=== PATIENT | male | born 1945 | race Caucasian/White ===

== ENCOUNTER → 2016-08-11 | Outpatient (REF) | payer MEDICARE, MEDICAID ==
[~2016-08-11] MED LIST: BENZ100C5 PO; DIPH2.5L PO; DOCU100T8 PO; IBUPPOW25 PO; LOM; LORA-376 PO; STOO100C PO; TUMS500C PO; VICO5TAB OR; chemo; ibuprofen
== END ==
LOC: M LAB REF 13:13
PROVIDERS: ATTEND Internal Medicine Medical Oncology
DX: C34.90 Malignant neoplasm of unspecified part of unspecified bronchus or lung (principal); Z85.07 Personal history of malignant neoplasm of pancreas

== ENCOUNTER → 2016-08-19 | Outpatient (CLI) | payer MEDICARE, MEDICAID ==
[~2016-08-19] MED LIST changes: +GASTROGRAFIN SOLUTION 30ML (Q9963) As Ordered ONE; +ISOVUE-370 76% 100ML VIAL (Q9967) As Ordered ONE
--- NOTE | 2016-08-19 18:21 | REP ---
CT study of the chest with IV contrast: History: Staging, metastatic pancreatic carcinoma. Comparison chest CT study 03/16/2016 showed scattered cavitary bilateral lung lesions unchanged from the earlier study. CT contrast dose: 100 mL of Isovue [address] findings: There is no evidence of pleural or pericardial effusion. There are 5 or 6 mediastinal lymph nodes in the precarinal and pretracheal space. One of these is enlarged and several are larger than they were in 03/16/2016 prior status scan. The largest node visible today measures 1.2 cm in short axis x 2.1 cm x 1.5 cm. This change is somewhat suspicious. There is a subcarinal node which has enlarged since the prior study as well. This currently measures 1.0 x 2.3 x 1.1 cm. Multiple scattered cavitary pulmonary parenchymal mass lesions are again seen. There is a 1.1 cm nodule adjacent to a larger lesion in the left lower lobe which is increased in size when compared with the March 2016 prior study. The right lower lobe lesion appears larger today as well and currently measures 2.5 x 1.5 cm. No new lesion is appreciated. The left upper lobe superior perihilar lesion is similar overall size but contains more soft tissue in its wall and less air. The aorta is tortuous as before. No vascular lesion is seen. Pneumobilia is noted incidentally in the upper abdomen in this patient status post Whipple procedure. No upper abdominal adenopathy is seen. Impression: Changes suspicious for progression in two of the lung lesions as well as in several mediastinal lymph nodes. Signed by Calin Wood MD 08/19/2016 07:55 P
--- NOTE | 2016-08-19 18:23 | REP ---
CT abdomen and pelvis without and with IV contrast: With oral contrast: History: Metastatic pancreatic carcinoma, restaging. Comparison CT study 11/03/2015. CT contrast dose: 100 mL of Isovue 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 The patient is status post Whipple procedure. Pneumobilia is again seen unchanged. No focal liver mass lesion is observed. Multiple upper abdominal surgical clips are seen. Small and large bowel loops are unremarkable apart from the postoperative changes. There are dystrophic calcifications in the enlarged prostate. Urinary bladder is intact. The kidneys enhance symmetrically. There are a few scattered small subcentimeter cortical cysts in each kidney. No hydronephrosis is seen. No retroperitoneal mass or adenopathy is seen. No bony destructive lesion is observed. Impression: Stable postoperative changes in the upper abdomen. No CT evidence of progression in the abdomen or pelvis. Signed by Calin Wood MD 08/19/2016 07:55 P
== END ==
LOC: M RAD 15:32
PROVIDERS: ATTEND Internal Medicine Medical Oncology
DX: C25.9 Malignant neoplasm of pancreas, unspecified (principal); R91.1 Solitary pulmonary nodule
CPT/HCPCS: 71260; 74178; Q9963; Q9967

== ENCOUNTER → 2016-09-29 | Outpatient (CLI) | payer MEDICARE, MEDICAID ==
[~2016-09-29] MED LIST changes: -GASTROGRAFIN SOLUTION 30ML (Q9963) As Ordered ONE; -ISOVUE-370 76% 100ML VIAL (Q9967) As Ordered ONE
--- NOTE | 2016-09-29 15:19 | REP ---
chest, two views: HISTORY: Pneumonia. COMPARISON: 11/04/2015. An ill-defined parenchymal density 1.7 cm in width is present in the left lower lobe. The right lung is clear. The heart is normal in size. The pulmonary vasculature is normal in appearance. Degenerative change is present in the thoracic spine. An Infusaport catheter is present. IMPRESSION: There is a 1.7 cm ill-defined parenchymal nodule in the left lower lobe. CT of the chest is recommended for further evaluation. Signed by Bridger Stokes MD 09/29/2016 03:23 P
== END ==
LOC: M RAD 14:28
PROVIDERS: ATTEND Internal Medicine Medical Oncology
DX: C25.9 Malignant neoplasm of pancreas, unspecified (principal); R91.1 Solitary pulmonary nodule; R06.2 Wheezing

== ENCOUNTER → 2016-10-13 | Outpatient (REF) | payer MEDICARE, MEDICAID | LOC: M LAB REF 16:57 | PROVIDERS: ATTEND Internal Medicine Medical Oncology | DX: C25.9 Malignant neoplasm of pancreas, unspecified (principal) ==

== ENCOUNTER → 2016-10-27 | Outpatient (REF) | payer MEDICARE, MEDICAID | LOC: M LAB REF 16:56 | PROVIDERS: ATTEND Internal Medicine Medical Oncology | DX: C25.9 Malignant neoplasm of pancreas, unspecified (principal) ==

== ENCOUNTER → 2016-11-17 | Outpatient (REF) | payer MEDICARE, MEDICAID ==
[~2016-11-17] MED LIST changes: -LORA-376 PO; +LORA0.5T11 PO
== END ==
LOC: M LAB REF 16:46
PROVIDERS: ATTEND Internal Medicine Medical Oncology
DX: C25.9 Malignant neoplasm of pancreas, unspecified (principal)

== ENCOUNTER → 2016-12-28 | Outpatient (REF) | payer MEDICARE, MEDICAID ==
[2016-12-28 15:27] LABS: REASON FOR REVIEW COMPREHENSIVE REVIEW
[2016-12-31 00:07] LABS: (LD) FRACTION 1 27 % (17-32); (LD) FRACTION 2 35 % (25-40); (LD) FRACTION 3 21 % (17-27); (LD) FRACTION 4 8 % (5-13); (LD) FRACTION 5 9 % (4-20); LDH 214 IU/L (121-224)
== END ==
LOC: M LAB REF 13:06
PROVIDERS: ATTEND Internal Medicine Nephrology
DX: N18.3 Chronic kidney disease, stage 3 (moderate) (principal); C25.9 Malignant neoplasm of pancreas, unspecified; D64.9 Anemia, unspecified; Z79.899 Other long term (current) drug therapy

== ENCOUNTER 2016-12-29 15:19 | Outpatient (CLI) | payer MEDICARE, MEDICAID ==
[2016-12-29] VITALS (9 sets, daily range): BP systolic 123–168; BP diastolic 68–79
[2016-12-29] MEDS ORDERED: ACETAMINOPHEN TAB 650MG DOSE (2X325MG) PO ONE (16:00)
[2016-12-29] MEDS ORDERED: diphenhydrAMINE 25 MG CAP PO ONE (16:00)
[2016-12-30 00:19] VITALS: BP 147/77
[2016-12-30 01:19] VITALS: BP 131/75
[2016-12-30] MEDS ORDERED: SODIUM CHLORIDE 0.9% INJ 10 ML SYR IV PRN (01:30)
[2016-12-30] MEDS ORDERED: SODIUM CHLORIDE 0.9% INJ 10 ML SYR IV SCH (09:00)
== END 2016-12-30 01:43 | disposition home or self-care (01) ==
LOC: M OPCLI4PV 15:19 → M MSPAV 15:23 → M OPCLI4PV 12-30 01:43
PROVIDERS: ATTEND Nurse Practitioner Family
DX: D64.81 Anemia due to antineoplastic chemotherapy (principal); C25.9 Malignant neoplasm of pancreas, unspecified
CPT/HCPCS: 36430; 86301; 86850; 86900; 86901; 86920; P9016

== ENCOUNTER → 2016-12-29 | Outpatient (REF) | payer MEDICARE, MEDICAID | LOC: M LAB REF 13:20 | PROVIDERS: ATTEND Internal Medicine Medical Oncology | DX: C25.9 Malignant neoplasm of pancreas, unspecified (principal) ==

== ENCOUNTER → 2017-01-05 | Outpatient (REF) | payer MEDICARE, MEDICAID | LOC: M LAB REF 16:30 | PROVIDERS: ATTEND Internal Medicine Medical Oncology | DX: C25.9 Malignant neoplasm of pancreas, unspecified (principal) ==

== ENCOUNTER → 2017-01-05 | Outpatient (CLI) | payer MEDICARE, MEDICAID ==
--- NOTE | 2017-01-05 12:04 | REP ---
Clinical: Chronic medical renal disease. Technique: Real time macedo scale ultrasound examination using curved array transducer. Findings: The right kidney measures 9.4 x 5.3 x 5.6 cm and is normal in reniform shape with increased central sinus fat and few cysts may entering up to 9 mm in the mid pole. Findings are consistent with chronic medical renal disease and there is no evidence for hydronephrosis, nephrolithiasis or mass lesion. The left kidney measures 10.5 x 4.3 x 5.7 cm and is normal in reniform shape with increased central sinus fat and few cysts measuring up to 10 mm in the lower pole. Findings are consistent with chronic medical renal disease and there is no evidence for hydronephrosis, nephrolithiasis, or mass lesion. Bladder demonstrates subtle nodular contour to the wall which may be related to chronic changes and possible outlet obstruction. Bilateral ureteral jets are identified. Prevoid bladder measures 184 ml at Postvoid bladder measures 129 ml. Postvoid residual equals 70% Impression: 1. Evidence for chronic medical renal disease and few bilateral cysts without hydronephrosis. 2. Bladder wall irregularity and increased postvoid residual volume suggest chronic changes related to bladder outlet obstruction. Signed by David Green MD 01/05/2017 11:56 A
== END ==
LOC: M RAD 11:06
PROVIDERS: ATTEND Internal Medicine Nephrology
DX: N18.3 Chronic kidney disease, stage 3 (moderate) (principal); C25.9 Malignant neoplasm of pancreas, unspecified

== ENCOUNTER → 2017-03-31 | Outpatient (REF) | payer MEDICARE, MEDICAID | LOC: M LAB REF 18:01 | PROVIDERS: ATTEND Internal Medicine Medical Oncology | DX: C25.9 Malignant neoplasm of pancreas, unspecified (principal) ==

== ENCOUNTER → 2017-04-14 | Outpatient (REF) | payer MEDICARE, MEDICAID | LOC: M LAB REF 16:50 | PROVIDERS: ATTEND Internal Medicine Medical Oncology | DX: C25.9 Malignant neoplasm of pancreas, unspecified (principal) ==

== ENCOUNTER → 2017-08-22 | Outpatient (REF) | payer MEDICARE, MEDICAID ==
[2017-08-23 09:26] LABS: CA19-9 TUMOR MARKER,CARBOHYDRA 77.9 U/ML (<35.0)
== END ==
LOC: M LAB REF 13:11
DX: C78.01 Secondary malignant neoplasm of right lung (principal); C78.02 Secondary malignant neoplasm of left lung; C25.9 Malignant neoplasm of pancreas, unspecified
CPT/HCPCS: 86301

== ENCOUNTER → 2017-08-26 | Outpatient (CLI) | payer MEDICARE, MEDICAID ==
[~2017-08-26] MED LIST changes: -BENZ100C5 PO; -DIPH2.5L PO; -DOCU100T8 PO; +GASTROGRAFIN SOLUTION 30ML (Q9963) As Ordered; -IBUPPOW25 PO; +ISOVUE-370 76% 100ML VIAL (Q9967) As Ordered; -LOM; -LORA0.5T11 PO; -STOO100C PO; -TUMS500C PO; -VICO5TAB OR; -chemo; -ibuprofen
== END ==
LOC: M RAD 14:52
DX: C25.9 Malignant neoplasm of pancreas, unspecified (principal)
CPT/HCPCS: Q9963

== ENCOUNTER → 2017-09-06 | Outpatient (REF) | payer MEDICARE, MEDICAID | LOC: M LAB REF 11:00 | DX: C34.90 Malignant neoplasm of unspecified part of unspecified bronchus or lung (principal) | CPT/HCPCS: 88300 ==

== ENCOUNTER → 2017-10-21 | Outpatient (CLI) | payer MEDICARE, MEDICAID | LOC: M RAD 09:43 | DX: N18.9 Chronic kidney disease, unspecified (principal); R33.9 Retention of urine, unspecified | CPT/HCPCS: 78707 ==

== ENCOUNTER → 2017-10-24 | Outpatient (REF) | payer MEDICARE, MEDICAID ==
[2017-10-25 09:47] LABS: CA19-9 TUMOR MARKER,CARBOHYDRA 168.5 U/ML (<35.0)
== END ==
LOC: M LAB REF 16:44
DX: C25.9 Malignant neoplasm of pancreas, unspecified (principal); C78.01 Secondary malignant neoplasm of right lung; C78.02 Secondary malignant neoplasm of left lung
CPT/HCPCS: 86301

== ENCOUNTER → 2017-11-11 | Outpatient (REF) | payer MEDICARE, MEDICAID ==
[2017-11-11 14:40] LABS: INR 1.04; PROTHROMBIN TIME 13.7 SECONDS (12.1-14.4)
== END ==
LOC: M LAB REF 12:57
DX: Z01.818 Encounter for other preprocedural examination (principal); Z79.01 Long term (current) use of anticoagulants
CPT/HCPCS: 85610

== ENCOUNTER → 2017-11-28 | Outpatient (CLI) | payer MEDICARE, MEDICAID | LOC: M RAD 13:24 | DX: C34.90 Malignant neoplasm of unspecified part of unspecified bronchus or lung (principal) | CPT/HCPCS: 71250 ==

== ENCOUNTER → 2017-12-05 | Outpatient (REF) | payer MEDICARE, MEDICAID | LOC: M LAB REF 17:20 | DX: C25.9 Malignant neoplasm of pancreas, unspecified (principal); C78.01 Secondary malignant neoplasm of right lung; C78.02 Secondary malignant neoplasm of left lung | CPT/HCPCS: 86301 ==

== ENCOUNTER → 2018-04-06 | Outpatient (REF) | payer MEDICARE, MEDICAID ==
[2018-04-06 11:32] LABS: CREATININE, SERUM 2.4 MG/DL (0.6-1.3); TOTAL VOLUME, URINE 1250 ML
[2018-04-06 11:51] LABS: CREATININE CLEARANCE, URINE 36.9 ML/MIN (85-125)
[2018-04-06 11:52] LABS: TOTAL PROTEIN 24 HOUR URINE 262.5 MG/24HR (50-150)
== END ==
LOC: M LAB REF 11:00
DX: C25.9 Malignant neoplasm of pancreas, unspecified (principal); C78.2 Secondary malignant neoplasm of pleura; C78.1 Secondary malignant neoplasm of mediastinum
CPT/HCPCS: 82575

== ENCOUNTER → 2018-04-07 | Outpatient (CLI) | payer MEDICARE, MEDICAID | LOC: M RAD 08:29 | DX: C25.9 Malignant neoplasm of pancreas, unspecified (principal); C78.01 Secondary malignant neoplasm of right lung; C78.02 Secondary malignant neoplasm of left lung | CPT/HCPCS: 71250 ==

== ENCOUNTER 2018-04-11 10:51 | Emergency (ER) | payer MEDICARE, MEDICAID ==
[2018-04-11 12:09] LABS: BASO # 0.1 10^3/uL (0.0-0.2); BASO % 0.4 % (0.0-1.0); EOS # 0.1 10^3/uL (0.0-0.50); EOS % 1.2 % (0.0-3.0); HEMOGLOBIN 14.7 g/dl (13.5-17.5); IMMATURE GRANULOCYTE % 0.4 % (0-3.0); LYMPH # 0.6 10^3/uL (1.5-4.5); LYMPH % 5.3 % (24.0-44.0); MEAN CORPUSCULAR HEMOGLOBIN 29.5 pg (27.0-33.0); MEAN CORPUSCULAR HGB CONC 32.7 g/dl (32.0-36.5); MEAN CORPUSCULAR VOLUME 90.4 fl (80.0-96.0); MONO # 0.7 10^3/uL (0.0-0.8); MONO % 5.6 % (0.0-5.0); NEUTROPHILS # 10.1 10^3/uL (1.8-7.7); NEUTROPHILS % 87.1 % (36.0-66.0); PLATELET COUNT, AUTOMATED 181 10^3/uL (150-450); RED BLOOD COUNT 4.98 10^6/uL (4.30-6.10); RED CELL DISTRIBUTION WIDTH 12.9 % (11.5-14.5); WHITE BLOOD COUNT 11.6 10^3/uL (4.0-10.0)
[2018-04-11 12:33] LABS: ALBUMIN 3.9 GM/DL (3.2-5.2); ALBUMIN/GLOBULIN RATIO 0.95 (1.00-1.93); ALKALINE PHOSPHATASE 139 U/L (45-117); ALT/SGPT 23 U/L (12-78); ANION GAP 7 MEQ/L (8-16); AST/SGOT 20 U/L (7-37); BILIRUBIN,DIRECT 0.1 MG/DL (0.0-0.2); BILIRUBIN,TOTAL 0.6 MG/DL (0.2-1.0); BLOOD UREA NITROGEN 42 MG/DL (7-18); CALCIUM LEVEL 8.8 MG/DL (8.8-10.2); CARBON DIOXIDE LEVEL 23 MEQ/L (21-32); CHLORIDE LEVEL 109 MEQ/L (98-107); CPK CREATINE PHOSPHOKINASE 50 U/L (39-308); CREATININE FOR GFR 2.83 MG/DL (0.70-1.30); GLOMERULAR FILTRATION RATE 23.3 (>42); GLUCOSE, FASTING 104 MG/DL (70-100); LIPASE 32 U/L (73-393); POTASSIUM SERUM 4.7 MEQ/L (3.5-5.1); SODIUM LEVEL 139 MEQ/L (136-145); TROPONIN I < 0.02 NG/ML (< 0.10)
[2018-04-11] MEDS: GASTROGRAFIN SOLUTION 30ML PO ×3 (12:35→13:10)
[2018-04-11 12:37] LABS: INR 0.99; PROTHROMBIN TIME 13.2 SECONDS (12.1-14.4)
[2018-04-11] MEDS: ONDANSETRON 4MG/2ML VIAL (J2405) IV (13:09)
[2018-04-11] MEDS: MORPHINE 4 MG/ML 1ML VIAL/SYRINGE (J2270) IV ×2 (13:09→14:48)
[2018-04-11] MEDS: NS 1,000 ML IV (13:10)
[2018-04-11 13:29] LABS: KETONE, URINE AUTO RFX NEGATIVE (NEGATIVE); LEUKOCYTE ESTERASE UR AUTO RFX NEGATIVE (NEGATIVE); MUCUS, URINE RFX SMALL (NEGATIVE); NITRITE, URINE AUTO RFX NEGATIVE (NEGATIVE); RBC, URINE AUTO RFX 4 /HPF (0-3); SPECIFIC GRAVITY UR AUTO RFX 1.013 (1.002-1.035); SQUAM EPITHELIAL CELL UR AURFX 0 /HPF (0-6); WBC, URINE AUTO RFX 2 /HPF (0-3)
== END 2018-04-11 16:00 | disposition home or self-care (01) ==
LOC: M ED 10:51
DX: R10.9 Unspecified abdominal pain (principal); K56.7 Ileus, unspecified
CPT/HCPCS: J2270

== ENCOUNTER → 2018-08-16 | Outpatient (CLI) | payer MEDICARE ==
[~2018-08-16] MED LIST changes: +BENZ-18 PO; +CALC1CAP31 PO; +DIPH2.5L PO; +DOCU100T8 PO; +FLOM0.4C39 PO; -GASTROGRAFIN SOLUTION 30ML (Q9963) As Ordered; +HYDR-3715 PO; +IBUPPOW25 PO; -ISOVUE-370 76% 100ML VIAL (Q9967) As Ordered; +LEVA250T13 PO; +LOM; +LORA0.5T11 PO; +STOO100C PO; +TAMSULOSIN; +TUMS500C PO; +VICO5TAB OR; +ZOFR4TAB14 PO; +[UNRECOGNIZED DRUG - CODE] IV; +chemo; +ibuprofen
--- NOTE | 2018-08-16 17:10 | REP ---
PET/CT: History: Carcinoma of the pancreatic head. The patient is status post Whipple procedure. Lung metastasis. Staging exam. Comparisons: Comparison CT abdomen and pelvis April 11, 2018. Comparison chest CT April 07, 2018. No comparison PET-CT. TECHNIQUE: 54 minutes following the intravenous injection of a 9.02 mCi dose of F-18 FDG, three-dimensional PET scintigraphy is acquired from the skull base to the proximal thighs. Triplanar noncontrast CT scanning is acquired through the same anatomic range for attenuation correction, and image registration with scan parameters optimized to minimize radiation exposure to the patient. PET scintigraphy and CT datasets were fused and displayed on a workstation with multiplanar and projection display capability. PET/CT Findings: There is injection artifactual uptake in the right arm. There is some arthritis associated uptake in the left shoulder. Head and neck soft tissues are unremarkable. There is no abnormal hypermetabolic uptake within the liver. The patient is status post Whipple procedure. There is no upper abdominal hypermetabolic sadi uptake. The known cavitary nodule or lung masses are all mildly hypermetabolic. These range in avidity from 1.96 to an SUV of 5.37. Lesions are noted in the left upper lobe, right lower lobe, two in the left lower lobe, and two in the right upper lobe. Several of these appear a little larger than on the comparison chest CT April 07, 2018. No hilar or mediastinal hypermetabolic sadi uptake is seen. Exam is otherwise unremarkable. Impression: Mildly hypermetabolic uptake noted in the multiple cavitary pulmonary nodular lesions. Several of these appear somewhat larger or thicker compared to their appearance on April 07, 2018. Electronically Signed by Calin Wood MD 08/16/2018 08:30 P
== END ==
LOC: M PLARAD 11:35
PROVIDERS: ATTEND Internal Medicine Hematology & Oncology
DX: C25.9 Malignant neoplasm of pancreas, unspecified (principal); C78.01 Secondary malignant neoplasm of right lung; C78.02 Secondary malignant neoplasm of left lung
CPT/HCPCS: 78815; A9552

== ENCOUNTER → 2018-09-06 | Outpatient (REF) | payer MEDICARE ==
[2018-09-06 17:03] LABS: TOTAL PROTEIN,RANDOM URINE 60.7 MG/DL (0.0-12.0)
[2018-09-06 17:10] LABS: ALBUMIN 3.4 GM/DL (3.2-5.2); CALCIUM LEVEL 7.6 MG/DL (8.8-10.2); CREATININE FOR GFR 2.67 MG/DL (0.70-1.30); POTASSIUM SERUM 3.8 MEQ/L (3.5-5.1)
[2018-09-06 17:23] LABS: HEMATOCRIT 34.4 % (42.0-52.0); MEAN CORPUSCULAR HEMOGLOBIN 30.7 pg (27.0-33.0); MEAN CORPUSCULAR VOLUME 96.1 fl (80.0-96.0); PLATELET COUNT, AUTOMATED 150 10^3/uL (150-450); RED BLOOD COUNT 3.58 10^6/uL (4.30-6.10); WHITE BLOOD COUNT 7.3 10^3/uL (4.0-10.0)
== END ==
LOC: M LAB REF 15:32
PROVIDERS: ATTEND Internal Medicine Nephrology
DX: N18.3 Chronic kidney disease, stage 3 (moderate) (principal)

== ENCOUNTER → 2018-09-26 | Outpatient (REF) | payer MEDICARE ==
[2018-09-26 18:51] LABS: APPEARANCE, URINE CLEAR (CLEAR); BACTERIA, URINE AUTO NEGATIVE (NEGATIVE); BILIRUBIN, URINE AUTO NEGATIVE (NEGATIVE); BLOOD, URINE BLOOD 1+ (NEGATIVE); COLOR, URINE YELLOW (YELLOW); GLUCOSE, URINE (UA) AUTO NEGATIVE (NEGATIVE); KETONE, URINE AUTO NEGATIVE (NEGATIVE); LEUKOCYTE ESTERASE, URINE AUTO TRACE (NEGATIVE); MUCUS, URINE SMALL (NEGATIVE); NITRITE, URINE AUTO NEGATIVE (NEGATIVE); PROTEIN, URINE AUTO NEGATIVE (NEGATIVE); RBC, URINE AUTO 3 /HPF (0-3); SPECIFIC GRAVITY URINE AUTO 1.014 (1.002-1.035); SQUAMOUS EPITHELIAL CELL UR AU 0 /HPF (0-6); UROBILINOGEN, URINE AUTO 0.2 mg/dL (0.0-2.0); WBC, URINE AUTO 6 /HPF (0-3)
== END ==
LOC: M SMT 17:17
PROVIDERS: ATTEND Nurse Practitioner Family
DX: R31.9 Hematuria, unspecified (principal)
CPT/HCPCS: 81001; 87086; 88108; G0463

== ENCOUNTER 2018-11-24 18:19 | Inpatient (IN) | payer MEDICARE ==
[~2018-11-24] VITALS: Ht 177.8 cm; Wt 86.3 kg
[~2018-11-24 18:19] MED LIST changes: +MM S100C PO; -STOO100C PO
[2018-11-24] MEDS ORDERED: HYDROMORPHONE HCL 0.5 MG/ 0.5 ML SYRINGE (J1170 PER 1) IV ONE (20:15)
[2018-11-24] MEDS ORDERED: ONDANSETRON 4MG/2ML VIAL (J2405) IV ONE (20:15)
[2018-11-24] MEDS ORDERED: NS 1,000 ML IV ONE (20:15)
[2018-11-24 20:54] LABS: BASO % 0.3 % (0.0-1.0); EOS % 0.3 % (0.0-3.0); HEMATOCRIT 43.2 % (42.0-52.0); HEMOGLOBIN 14.1 g/dl (13.5-17.5); LYMPH # 0.3 10^3/uL (1.5-4.5); LYMPH % 1.9 % (24.0-44.0); MEAN CORPUSCULAR HEMOGLOBIN 30.9 pg (27.0-33.0); MEAN CORPUSCULAR HGB CONC 32.6 g/dl (32.0-36.5); MEAN CORPUSCULAR VOLUME 94.7 fl (80.0-96.0); MONO # 0.7 10^3/uL (0.0-0.8); MONO % 4.6 % (0.0-5.0); NEUTROPHILS # 14.5 10^3/uL (1.8-7.7); NEUTROPHILS % 92.6 % (36.0-66.0); PLATELET COUNT, AUTOMATED 153 10^3/uL (150-450); RED BLOOD COUNT 4.56 10^6/uL (4.30-6.10); WHITE BLOOD COUNT 15.6 10^3/uL (4.0-10.0)
[2018-11-24 21:25] LABS: ALBUMIN 3.7 GM/DL (3.2-5.2); BILIRUBIN,DIRECT 0.2 MG/DL (0.0-0.2); BILIRUBIN,TOTAL 0.7 MG/DL (0.2-1.0); CALCIUM LEVEL 7.9 MG/DL (8.8-10.2); CREATININE FOR GFR 3.84 MG/DL (0.70-1.30); GLOMERULAR FILTRATION RATE 16.4 (>42); POTASSIUM SERUM 4.1 MEQ/L (3.5-5.1); TOTAL PROTEIN 7.3 GM/DL (6.4-8.2)
--- NOTE | 2018-11-24 23:09 | REPVR ---
EXAM: CT Abdomen and Pelvis Without Contrast EXAM DATE/TIME: 11/24/2018 10:22 PM CLINICAL HISTORY: 73 years old, male; Abdominal pain; Localized; Other: Mid; Additional info: Mid abd pain/vomiting/hx pancreatic CA TECHNIQUE: Imaging protocol: Axial computed tomography images of the abdomen and pelvis without contrast. Coronal and sagittal reformatted images were created and reviewed. Radiation optimization: All CT scans at this facility use at least one of these dose optimization techniques: automated exposure control; mA and/or kV adjustment per patient size (includes targeted exams where dose is matched to clinical indication); or iterative reconstruction. COMPARISON: CT ABD PELVIS W/O CONTRAST 04/11/2018 1:37 PM FINDINGS: Lungs: Bibasilar lung masses, palpated on the left, an increase in size in comparison to the prior study of 04/11/2018 now measuring 2.1 x 2.6 cm on the right and 2.9 x 3 cm on the left. Findings consistent with progressive metastatic disease. Liver: Normal. No mass. Gallbladder and bile ducts: Pneumobilia likely related to prior sphincterotomy. Pancreas: Atrophic changes in the pancreatic body and tail. Postsurgical changes related to prior procedure demonstrated in the region of the pancreatic head and surrounding soft tissues. No recurrent mass demonstrated. Spleen: Normal. No splenomegaly. Adrenals: Normal. No mass. Kidneys and ureters: Atrophic changes right kidney. Kidneys otherwise unremarkable. Stomach and bowel: Multiple dilated loops of small bowel with multiple foci of interloop stranding consistent with small bowel obstruction likely related to the presence of adhesions. There is mixing with fluid within the small bowel (fecalization) consistent with stasis. Appendix: No evidence of appendicitis. Intraperitoneal space: Normal. No free air. No significant fluid collection. Vasculature: The aorta demonstrates mild atherosclerotic calcification. Lymph nodes: Normal. No enlarged lymph nodes. Bladder: Unremarkable as visualized. Reproductive: The prostate gland demonstrates mild hyperplasia. Bones/joints: Mild central spinal stenosis at L3-4, L4-5. The spine demonstrates mild degenerative changes. Soft tissues: Left inguinal hernia. IMPRESSION: 1. Atrophic changes in the pancreatic body and tail. Postsurgical changes related to prior procedure demonstrated in the region of the pancreatic head and surrounding soft tissues. No recurrent mass demonstrated. 2. Multiple dilated loops of small bowel with multiple foci of interloop stranding consistent with small bowel obstruction likely related to the presence of adhesions. There is mixing with fluid within the small bowel (fecalization) consistent with stasis. 3. Mild prostatic hyperplasia. 4. Progressive lung metastasis. Electronically signed by: Elie Bennett On 11/24/2018 23:08:54 PM
[2018-11-24] MEDS ORDERED: PIPERACILLIN/TAZOBACTAM SOD 3.375 GM in D5W MINI-BAG PLUS 50 ML IV ONE (23:30)
[2018-11-25] MEDS ORDERED: TAMS1CAP17 PO
[2018-11-25] MEDS ORDERED: NORCO, ANEXSIA 5/325MG TABLET (HYDROcodone/ACETAMINOPHEN) PO PRN (01:00)
[2018-11-25] MEDS ORDERED: ONDANSETRON 4MG/2ML VIAL (J2405) IV PRN (01:00)
[2018-11-25] MEDS ORDERED: ACETAMINOPHEN TAB 650MG DOSE (2X325MG) PO PRN (01:00)
[2018-11-25] MEDS ORDERED: MORPHINE 4 MG/ML 1ML VIAL/SYRINGE (J2270) IV PRN (01:00)
[2018-11-25] MEDS ORDERED: PIPERACILLIN/TAZOBACTAM SOD 3.375 GM in D5W MINI-BAG PLUS 50 ML IV SCH (01:00)
[2018-11-25] MEDS: LR 1,000 ML IV SCH ×3 (01:01→20:09)
[2018-11-25 01:57] VITALS: BP 138/73
[2018-11-25] MEDS: PANTOPRAZOLE 40MG INJ (PROTONIX) (C9113) IV SCH (05:16)
[2018-11-25] MEDS: PIPERACILLIN/TAZOBACTAM SOD 2.25 GM in D5W MINI-BAG PLUS 50 ML IV SCH ×4 (05:16→23:15)
[2018-11-25 08:40] LABS: HEMATOCRIT 35.6 % (42.0-52.0); MEAN CORPUSCULAR HGB CONC 32.6 g/dl (32.0-36.5); MEAN CORPUSCULAR VOLUME 95.2 fl (80.0-96.0); PLATELET COUNT, AUTOMATED 133 10^3/uL (150-450); RED BLOOD COUNT 3.74 10^6/uL (4.30-6.10); WHITE BLOOD COUNT 10.9 10^3/uL (4.0-10.0)
[2018-11-25 08:50] LABS: HEMOGLOBIN 11.6 g/dl (13.5-17.5)
[2018-11-25] MEDS ORDERED: ENOXAPARIN 40 MG/0.4 ML SYRINGE (J1650) SC SCH (09:00)
[2018-11-25] MEDS: SENOKOT S TAB PO SCH ×2 (10:17→20:09)
[2018-11-25] MEDS: ENOXAPARIN 30 MG/0.3 ML SYR (J1650) SC SCH (10:18)
--- NOTE | 2018-11-25 10:30 | ECGEPIP ---
[facility] Test Date: 2018-11-25 Pat Name: LORENZA MENDEZ Department: Room: Y2985-75 Gender: Male Explosive Operator: LAKISHA : 1945 Requested By: LUIGI Montaño Order Number: [id number] Reading MD: Leslie Sy Measurements Intervals [place] Rate: 69 P: 19 [place]: 186 QRS: -16 QRSD: 89 T: 31 QT: 411 QTc: 441 Interpretive Statements SINUS RHYTHM WITH FREQUENT VENTRICULAR PREMATURE COMPLEXES LOW QRS VOLTAGE IN PRECORDIAL LEADS POOR R WAVE PROGRESSION ABNORMAL RHYTHM ECG SIMILAR TO 04/11/18 Electronically Signed on 11-25-2018 10:30:18 EDT by Leslie Sy
[2018-11-25 11:11] VITALS: BP 112/73
[2018-11-25 14:00] VITALS: BP 115/67
--- NOTE | 2018-11-25 16:44 | HPEPDOC ---
General Date of Admission Nov 25, 2018 at 00:46 Date of Service: Nov 25, 2018 Attending Physician: LUIGI HILLMAN DO Chief Complaint abdominal pain History of Present Illness Time of service 2:53 PM Chief complaint: abdominal pain. Reason for consult: irregular heart beat with PVCs noted on EKG. This is a 73-year-old male who presents to the hospital yesterday with complain ts of 10 out of 10 mid nonradiating abdominal pain which she attributed to small bowel obstruction. He reports having a history of over 8. Small bowel obstructions that have been managed conservatively in the past. Associated symptoms at that time included nausea and nonbloody vomiting. Review of systems: 12 point review systems negatives except as listed in HPI Hospital course: NG has been inserted, which has been to low wall intermittent suction. He reports that the pain has now resolved and that he has passed gas. Currently, his only complaint is of cramping sensation in his arms and legs. PAST MEDICAL/PAST SURGICAL HISTORY: 1.T3 N1 metastatic pancreatic cancer diagnosed in 2000 for which he underwent a Whipple procedure, but developed metastases to the lungs in 2014 2. Hydropneumothorax in 2010. 3. History of colonic tubular adenoma. 4. CKD III 5. Port-A-Cath placement. 6. History of multiple small bowel obstructions. 7. Denies personal history of cardiac problems, diabetes, or hypertension. SOCIAL HISTORY: Quit smoking. Takes alcohol socially. FAMILY HISTORY: Asthma PHYSICAL EXAM: VITAL SIGNS: Temperature 98.5, pulse 59, respiratory rate 17, blood pressure 115/67, pulse oximetry 96%. on room air. GEN: Well-nourished, well-developed, appears stated age. HEENT: NG tube to low wall intermittent suction in place, mucous membranes slightly dry. CHEST: Port-A-Cath of right upper chest, heart has a regular rate and rhythm. No murmurs, rubs or gallops. Radial pulse is intact LUNGS: Clear to auscultation bilaterally on room air. ABDOMEN: Large post laparotomy scar at upper abdomen along with multiple atrophic scars from port placement. Bowel sounds are active, and the abdomen is soft and nontender on palpation. EXTREMITIES: Range of motion intact 4 extremities. There is no edema. NEURO: Cranial nerves II-12 grossly intact, speech is not dysarthric. PSYCH: Alert and oriented to person, place and time, able to understand and follow commands.. DIAGNOSTIC DATA: See below for CBC and CMP results. The EKG showed sinus rhythm with a heart rate of 69 with frequent PVCs, low QRS voltage and poor R-wave progression. CT abdomen abdomen showed atrophic changes in the pancreatic body and tail evidence of Whipple procedure, small bowel findings consistent with an obstruction likely due to adhesions, mild BPH and progressive lung metastasis. ASSESSMENT AND PLAN: is a 73-year-old male with a past medical history of CKD and metastatic pancreatic cancer who has developed small bowel resection after having a Whipple Procedure. We were consulted to evaluate the patient because of an arrhythmia. 1 PVCs. The patient denies having any cardiac symptoms including chest pain, dyspnea, leg swelling, and denies a history of cardiac problems and or history of hypertension. His previous EKG done in Apr also showed PVCs. Based on chart review is not taking any medications that are known to cause PVCs. His potassium and corrected calcium are within normal limits. The patients with asymptomatic PVCs without underlying heart disease. The long- term prognosis is not different from the general population. Plan: Would recommend putting the patient on telemetry, repeating an EKG, checking a troponin, trending his potassium and calcium levels, as well as checking his magnesium level. If the work up is unrevealing he can follow up with his PCP for an echo on an out patient basis to r/o valulopathy. Rest of management per primary team. Thank you for consulting us. We will continue to follow this patient with you Home Medications Scheduled Tamsulosin Hcl (Tamsulosin HCl) 0.4 Mg Capsule, 0.4 MG PO QHS, (Reported) Allergies Coded Allergies: No Known Allergies (Unverified , 07/27/18) A-FIB/CHADSVASC A-FIB History Current/History of A-Fib/PAF?: No Current PO Anticoag Therapy: No Vital Signs Vital Signs Date Time Temp Pulse Resp B/P (MAP) Pulse Ox O2 Delivery O2 Flow Rate FiO2 11/25/18 14:00 98.5 59 17 115/67 (83) 96 11/24/18 18:31 Room Air Laboratory Data Labs 24H Laboratory Tests 2 11/24/18 20:38: Immature Granulocyte % (Auto) 0.3, White Blood Count 15.6H, Red Blood Count 4.56, Hemoglobin 14.1, Hematocrit 43.2, Mean Corpuscular Volume 94.7, Mean Corpu scular Hemoglobin 30.9, Mean Corpuscular Hemoglobin Concent 32.6, Red Cell Distribution Width 13.2, Platelet Count 153, Neutrophils (%) (Auto) 92.6H, Lymphocytes (%) (Auto) 1.9L, Monocytes (%) (Auto) 4.6, Eosinophils (%) (Auto) 0.3, Basophils (%) (Auto) 0.3, Neutrophils # (Auto) 14.5H, Lymphocytes # (Auto) 0.3L, Monocytes # (Auto) 0.7, Eosinophils # (Auto) 0.0, Basophils # (Auto) 0.0, Nucleated Red Blood Cells % (auto) 0.0, Anion Gap 12, Glomerular Filtration Rate 16.4L, Calcium Level 7.9L, Aspartate Amino Transf (AST/SGOT) 21, Alanine Aminotransferase (ALT/SGPT) 22, Alkaline Phosphatase 120H, Total Bilirubin 0.7, Direct Bilirubin 0.2, Total Protein 7.3, Albumin 3.7, Albumin/Globulin Ratio 1 .03, Lipase 17L 11/24/18 20:39: Lactic Acid Level 1.9 11/24/18 21:55: Urine Color YELLOW, Urine Appearance CLEAR, Urine pH 5.0, Urine Specific [place] 1.011, Urine Protein 1+H, Urine Glucose (UA) NEGATIVE, Urine Ketones NEGATIVE, Urine Blood 1+H, Urine Nitrite NEGATIVE, Urine Bilirubin NEGATIVE, Urine Urobilinogen 0.2, Urine Leukocyte Esterase NEGATIVE, Urine WBC (Auto) 6H, Urine RBC (Auto) 5H, Urine Hyaline Casts (Auto) 0, Urine Bacteria (Auto) NEGATIVE, Urine Squamous Epithelial Cells 0, Urine Sperm (Auto) 11/25/18 08:24: Nucleated Red Blood Cells % (auto) 0.0 CBC/BMP Laboratory Tests 11/24/18 20:38 Red Blood Count 4.56, Mean Corpuscular Volume 94.7, Mean Corpuscular Hemoglobin 30.9, Mean Corpuscular Hemoglobin Concent 32.6, Red Cell Distribution Width 13.2, Neutrophils (%) (Auto) 92.6 H, Lymphocytes (%) (Auto) 1.9 L, Monocytes (%) (Auto) 4.6, Eosinophils (%) (Auto) 0.3, Basophils (%) (Auto) 0.3, Neutrophils # (Auto) 14.5 H, Lymphocytes # (Auto) 0.3 L, Monocytes # (Auto) 0.7, Eosinophils # (Auto) 0.0, Basophils # (Auto) 0.0 11/25/18 08:24 Red Blood Count 3.74 L, Mean Corpuscular Volume 95.2, Mean Corpuscular Hemoglobin 31.0, Mean Corpuscular Hemoglobin Concent 32.6, Red Cell Distribution Width 13.2 Plan / VTE VTE Prophylaxis Ordered?: Yes (lovenox) OMAR DIAZ MD Nov 25, 2018 16:44
[2018-11-25 17:58] LABS: MAGNESIUM LEVEL 1.4 MG/DL (1.8-2.4); TROPONIN I 0.03 NG/ML (< 0.10)
[2018-11-25] MEDS ORDERED: MAG SULF 1GM/100ML (MAG RUN) 1 GM in APPROPRIATE DILUENT 1 EA IV ONE (19:00)
[2018-11-25] MEDS: TAMSULOSIN 0.4 MG CAP PO SCH (20:09)
[2018-11-25 22:00] VITALS: BP 110/65
[2018-11-26] MEDS: LR 1,000 ML IV SCH ×4 (03:34→22:07)
[2018-11-26] MEDS: PIPERACILLIN/TAZOBACTAM SOD 2.25 GM in D5W MINI-BAG PLUS 50 ML IV SCH ×3 (05:10→18:20)
[2018-11-26] MEDS: PANTOPRAZOLE 40MG INJ (PROTONIX) (C9113) IV SCH (05:10)
[2018-11-26 06:00] VITALS: BP 112/58
[2018-11-26] MEDS: SENOKOT S TAB PO SCH ×2 (08:32→20:14)
[2018-11-26] MEDS: ENOXAPARIN 30 MG/0.3 ML SYR (J1650) SC SCH (08:33)
[2018-11-26] MEDS ORDERED: PREVNAR 13 VACCINE SYRINGE (CPT CODE:90670) IM ONE (09:00)
--- NOTE | 2018-11-26 10:16 | IPNPDOC ---
Text Note Date of Service The patient was seen on 11/26/18. NOTE No acute events overnight. Tolerating the NGT in. He still has bilious output from it. He is passing gas, but no BM. No more abd pains. NG - 1175 VSSAF NAD abd -soft, slightly distended in the upper abdomen only, no rebound or guarding labs - below A) 73y/o male with a history of pancreatic CA and a Whipple procedure presents with partial SBO likely secondary to adhesions P) sips and chips NGT to LIS ambulate monitor labs and wait for a BM will check abd xray, and if there is no signs of obstruction I will try his NGT clamped with a clq diet, if not then we will keep same treatment for now, and discuss surgery in the am. Duncan Tellez DO VS,Rick, I+O VS, Rick, I+O Vital Signs Date Time Temp Pulse Resp B/P (MAP) Pulse Ox O2 Delivery O2 Flow Rate FiO2 11/26/18 06:00 97.4 69 17 112/58 (76) 95 11/24/18 18:31 Room Air I&O- Last 24 Hours up to 6 AM 11/26/18 06:00 Intake Total 1635.0 ml Output Total 2300 ml Balance -665.0 ml LUIGI TELLEZ DO Nov 26, 2018 10:16
[2018-11-26] MEDS ORDERED: MAG SULF 1GM/100ML (MAG RUN) 1 GM in APPROPRIATE DILUENT 1 EA IV ONE (10:30)
--- NOTE | 2018-11-26 11:17 | ECGEPIP ---
[facility] Test Date: 2018-11-25 Pat Name: LORENZA MENDEZ Department: Room: [place] [id number] Gender: Male Die Drawing Checker: LAKISHA : 1945 Requested By: OMAR DIAZ Order Number: [id number] Reading MD: Leslie Sy Measurements Intervals [place] Rate: 67 P: 23 OR: 187 QRS: -15 QRSD: 75 T: 31 QT: 417 QTc: 441 Interpretive Statements SINUS RHYTHM WITH FREQUENT VENTRICULAR PREMATURE COMPLEXES LOW QRS VOLTAGE IN PRECORDIAL LEADS ABNORMAL RHYTHM ECG SIMILAR TO 7:58 SAME DAY Electronically Signed on 11-26-2018 11:16:33 EDT by Leslie Sy
[2018-11-26] MEDS: MAG SULF 1GM/100ML (MAG RUN) 1 GM in APPROPRIATE DILUENT 1 EA IV SCH ×3 (11:38→14:29)
[2018-11-26 14:00] VITALS: BP 111/59
[2018-11-26] MEDS ORDERED: CHLORASEPTIC SPRAY MT PRN (14:30)
--- NOTE | 2018-11-26 14:30 | IPNPDOC ---
Subjective Date Seen The patient was seen on 11/26/18. Time of service 12:28 PM Subjective Chief Complaint/HPI Reason for consultation PVCs. Events since last encounter The patient denies having any chest pain, and reports that he is passing gas, has not had a bowel movement and is asking to eat. Objective Physical Examination Other physical findings PHYSICAL EXAM: VITAL SIGNS: See below GEN: Well-nourished, well-developed, no apparent distress HEENT: NG tube to low wall to gravity, mucous membranes slightly dry. CHEST: Port-A-Cath of right upper chest, heart has a regular rate and rhythm. No murmurs, rubs or gallops. Radial pulse is intact LUNGS: Clear to auscultation bilaterally on room air. ABDOMEN: Large post laparotomy scar at upper abdomen along with multiple atrophic scars from port placement. Bowel sounds are active, and the abdomen is soft and nontender on palpation. EXTREMITIES: There is no lower extremity edema. NEURO: Cranial nerves II-12 grossly intact, speech is not dysarthric. PSYCH: Alert and oriented to person, place and time, able to understand and follow commands. Assessment /Plan Assessment ASSESSMENT AND PLAN: is a 73-year-old male with a past medical history of CKD and metastatic pancreatic cancer who has developed small bowel resection after having a Whipple Procedure. We were consulted to evaluate the patient because of an arrhythmia. 1 . Frequent PVCs. The patient denies having any cardiac symptoms, history of cardiovascular problems are hypertension. The EKG done in Apr as well as those done yesterday also showed PVCs. He is not taking any medications that are known to cause PVCs. His potassium, corrected calcium, and troponin are within normal limits, but the magnesium is low. Telemetry shows trigeminy. Plan:Continue with telemetry, replete magnesium, follow-up BMP daily, will order an echocardiogram tomorrow to r/o valulopathy. Rest of management per primary team. Thank you for consulting us, we will continue to follow this patient with you Plan/VTE VTE Prophylaxis Ordered?: Yes (lovenox) VS, I&O, 24H, Fishbone Vital Signs/I&O Vital Signs Date Time Temp Pulse Resp B/P (MAP) Pulse Ox O2 Delivery O2 Flow Rate FiO2 11/26/18 06:00 97.4 69 17 112/58 (76) 95 11/24/18 18:31 Room Air I&O- Last 24 Hours up to 6 AM 11/26/18 06:00 Intake Total 1635.0 ml Output Total 2300 ml Balance -665.0 ml Laboratory Data 24H LABS Laboratory Tests 2 11/25/18 17:17: Magnesium Level 1.4L, Troponin I 0.03 11/26/18 06:11: Magnesium Level 1.7L CBC/BMP Laboratory Tests 11/24/18 20:38 Red Blood Count 4.56, Mean Corpuscular Volume 94.7, Mean Corpuscular Hemoglobin 30.9, Mean Corpuscular Hemoglobin Concent 32.6, Red Cell Distribution Width 13.2, Neutrophils (%) (Auto) 92.6 H, Lymphocytes (%) (Auto) 1.9 L, Monocytes (%) (Auto) 4.6, Eosinophils (%) (Auto) 0.3, Basophils (%) (Auto) 0.3, Neutrophils # (Auto) 14.5 H, Lymphocytes # (Auto) 0.3 L, Monocytes # (Auto) 0.7, Eosinophils # (Auto) 0.0, Basophils # (Auto) 0.0 11/25/18 08:24 Red Blood Count 3.74 L, Mean Corpuscular Volume 95.2, Mean Corpuscular Hemoglobin 31.0, Mean Corpuscular Hemoglobin Concent 32.6, Red Cell Distribution Width 13.2 OMAR DIAZ MD Nov 26, 2018 14:30
[2018-11-26] MEDS: TAMSULOSIN 0.4 MG CAP PO SCH (20:14)
[2018-11-26 22:00] VITALS: BP 120/66
[2018-11-27] MEDS: PIPERACILLIN/TAZOBACTAM SOD 2.25 GM in D5W MINI-BAG PLUS 50 ML IV SCH ×4 (00:15→17:35)
[2018-11-27 02:50] LABS: CALCIUM LEVEL 7.5 MG/DL (8.8-10.2); CREATININE FOR GFR 3.84 MG/DL (0.70-1.30); GLOMERULAR FILTRATION RATE 16.4 (>42); MAGNESIUM LEVEL 2.3 MG/DL (1.8-2.4); POTASSIUM SERUM 4.4 MEQ/L (3.5-5.1)
[2018-11-27 06:00] VITALS: BP 133/72
[2018-11-27] MEDS: PANTOPRAZOLE 40MG INJ (PROTONIX) (C9113) IV SCH (06:23)
[2018-11-27 06:51] LABS: HEMATOCRIT 32.4 % (42.0-52.0); HEMOGLOBIN 10.6 g/dl (13.5-17.5); MEAN CORPUSCULAR HEMOGLOBIN 31.3 pg (27.0-33.0); MEAN CORPUSCULAR HGB CONC 32.7 g/dl (32.0-36.5); MEAN CORPUSCULAR VOLUME 95.6 fl (80.0-96.0); PLATELET COUNT, AUTOMATED 115 10^3/uL (150-450); RED BLOOD COUNT 3.39 10^6/uL (4.30-6.10); WHITE BLOOD COUNT 8.4 10^3/uL (4.0-10.0)
[2018-11-27 07:05] LABS: CALCIUM LEVEL 7.6 MG/DL (8.8-10.2); CREATININE FOR GFR 3.79 MG/DL (0.70-1.30); GLOMERULAR FILTRATION RATE 16.7 (>42); MAGNESIUM LEVEL 2.2 MG/DL (1.8-2.4); POTASSIUM SERUM 4.3 MEQ/L (3.5-5.1)
--- NOTE | 2018-11-27 07:53 | REP ---
Abdomen three views, to AP supine one AP upright: Comparison is from 01/06/2018. There is a nasogastric tube with the tip terminating in the abdominal left upper quadrant satisfactory location. There are mildly dilated loops with multiple air-fluid levels. The bowel gas pattern is nonspecific and could represent ileus or obstruction. There are multiple surgical clips in the upper abdomen as previously. There are surgical staple lines in the abdominal left upper quadrant. Impression: Nonspecific bowel gas pattern. Electronically Signed by Garo Linda MD 11/26/2018 03:36 P
[2018-11-27] MEDS: ENOXAPARIN 30 MG/0.3 ML SYR (J1650) SC SCH (08:42)
[2018-11-27] MEDS: SENOKOT S TAB PO SCH ×2 (08:42→20:20)
[2018-11-27] MEDS: LR 1,000 ML IV SCH ×2 (08:51→17:35)
--- NOTE | 2018-11-27 11:04 | IPNPDOC ---
Text Note Date of Service The patient was seen on 11/27/18. NOTE No acute events overnight. Tolerating the NGT in. He is passing gas, but no BM. No more abd pains. VSSAF NAD abd -soft, slightly distended in the upper abdomen only, no rebound or guarding labs - below abd xray - no signs of obstruction A) 73y/o male with a history of pancreatic CA and a Whipple procedure presents with partial SBO likely secondary to adhesions P) clq diet clamp NGT ambulate monitor labs and wait for a BM will advance diet if tolerating clears uDncan Tellez DO VS,Fishbone, I+O VS, Fishbone, I+O Laboratory Tests 11/27/18 02:22 Calcium Level 7.5 L 11/27/18 06:09 Calcium Level 7.6 L, Red Blood Count 3.39 L, Mean Corpuscular Volume 95.6, Mean Corpuscular Hemoglobin 31.3, Mean Corpuscular Hemoglobin Concent 32.7, Red Cell Distribution Width 13.1 Vital Signs Date Time Temp Pulse Resp B/P (MAP) Pulse Ox O2 Delivery O2 Flow Rate FiO2 11/27/18 06:00 98.0 63 17 133/72 (92) 95 11/24/18 18:31 Room Air I&O- Last 24 Hours up to 6 AM 11/27/18 06:00 Intake Total 2255 ml Output Total 2315 ml Balance -60 ml LUIGI TELLEZ DO Nov 27, 2018 11:04
[2018-11-27 14:00] VITALS: BP 135/65
--- NOTE | 2018-11-27 17:23 | IPNPDOC ---
Subjective Date Seen The patient was seen on 11/27/18. Time of service 10:20 AM Subjective Chief Complaint/HPI abdominal pain Events since last encounter The patient reports passing gas, and is asking if he can eat. He denies having stomach pain, or any other complaints. Per discussion with nursing staff. He will be advanced to a clear liquid diet. Objective Physical Examination Other physical findings VITAL SIGNS: See below GEN: Well-nourished, well-developed, no apparent distress HEENT: NG tube to low wall to gravity, mucous membranes slightly dry. CHEST: Port-A-Cath of right upper chest, heart has a regular rate and rhythm. No murmurs, rubs or gallops. Radial pulse is intact LUNGS: Clear to auscultation bilaterally on room air. ABDOMEN: Large post laparotomy scar at upper abdomen along with multiple atrophic scars from port placement. Bowel sounds are active, and the abdomen is soft and nontender on palpation. EXTREMITIES: There is no lower extremity edema. NEURO: Cranial nerves II-12 grossly intact, speech is not dysarthric. PSYCH: Alert and oriented to person, place and time, able to understand and follow commands. Assessment /Plan Assessment is a 73-year-old male with a past medical history of CKD and metastatic pancreatic cancer who has developed small bowel resection after having a Whipple Procedure. We were consulted to evaluate the patient because of an arrhythmia. 1 . Frequent PVCs. The patient denies having any cardiac symptoms, history of cardiovascular problems are hypertension. The EKG done in Apr also showed PVCs. He is not taking any medications that are known to cause PVCs. Plan: Discontinue telemetry, keep magnesium > 2 and potassium > 4, follow-up BMP and magnesium daily, follow-up echocardiogram tomorrow to r/o valulopathy. Rest of management per primary team. Thank you for consulting us, we will continue to follow this patient with you Plan/VTE VTE Prophylaxis Ordered?: Yes (lovenox) VS, I&O, 24H, Fishbone Vital Signs/I&O Vital Signs Date Time Temp Pulse Resp B/P (MAP) Pulse Ox O2 Delivery O2 Flow Rate FiO2 11/27/18 14:00 97.7 53 18 135/65 (88) 99 11/24/18 18:31 Room Air I&O- Last 24 Hours up to 6 AM 11/27/18 05:59 Intake Total 2075 ml Output Total 1815 ml Balance 260 ml Laboratory Data 24H LABS Laboratory Tests 2 11/27/18 02:22: Anion Gap 8, Glomerular Filtration Rate 16.4L, Blood Urea Nitrogen 65H, Creatinine 3.84H, Sodium Level 142, Potassium Level 4.4, Chloride Level 113H, Carbon Dioxide Level 21, Calcium Level 7.5L, Magnesium Level 2.3 11/27/18 06:09: Anion Gap 11, Glomerular Filtration Rate 16.7L, Blood Urea Nitrogen 64H, Creatinine 3.79H, Sodium Level 143, Potassium Level 4.3, Chloride Level 113H, Carbon Dioxide Level 19L, Calcium Level 7.6L, Magnesium Level 2.2, Nucleated Red Blood Cells % (auto) 0.0 CBC/BMP Laboratory Tests 11/27/18 02:22 Calcium Level 7.5 L 11/27/18 06:09 Calcium Level 7.6 L, Red Blood Count 3.39 L, Mean Corpuscular Volume 95.6, Mean Corpuscular Hemoglobin 31.3, Mean Corpuscular Hemoglobin Concent 32.7, Red Cell Distribution Width 13.1 OMAR DIAZ MD Nov 27, 2018 17:23
[2018-11-27] MEDS: TAMSULOSIN 0.4 MG CAP PO SCH (20:20)
--- NOTE | 2018-11-27 21:17 | ECHO ---
DATE OF PROCEDURE: 11/27/2018 DATE OF : 1945 AGE: 73 GENDER: Male HEIGHT: 70 inches WEIGHT: 189 pounds BODY SURFACE AREA: 2.04 meters squared INPATIENT: [address] [place] [address], room 4219 REFERRING PHYSICIAN: Dr. Tosin Carbone INDICATION: Premature ventricular contractions (PVCs). MEASUREMENTS: 2D Measurements: RV: 4.3 cm LV: 4.8 cm Septum: 1.1 cm Posterior wall: 1.1 cm Aortic root: 3.2 cm LA: 3.4 cm LVEF: 65% DOPPLER MEASUREMENTS: AV: 1.53 meters per second LVOT: 0.92 meters per second LVOT diameter: 2.0 cm MV-E: 80, A: 91, EA ratio: 0.9 Early mitral deceleration time: 218 milliseconds E prime: 8.9, A prime: 11.7, E/E prime ratio: 9 PV: 0.9 meters per second Pulmonary artery acceleration time: 100 milliseconds PASP: 37 mmHg COMMENTS: Normal sinus rhythm without intraventricular conduction disturbance. Frequent isolated unifocal PVCs. Technically difficult study in light of the patient's chest configuration and prior smoking history, but some diagnostically useful information was still obtained. Normal left ventricular size, wall thickness and wall motion. Normal left atrial size with Doppler evidence of an impairment of left ventricular (LV) diastolic function but currently normal estimated mean left atrial pressure. Slightly dilated right heart chambers with normal wall motion and Doppler evidence of mild pulmonary hypertension. Unable to visualize his inferior vena cava to further estimate central venous pressure. Difficult to clearly visualize valvular structures but according to Doppler interrogation, there was no hemodynamically significant valvular abnormality. Normal aortic root size. No apparent intracardiac mass or pericardial effusion.
[2018-11-27 22:00] VITALS: BP 144/70
[2018-11-28] MEDS: PIPERACILLIN/TAZOBACTAM SOD 2.25 GM in D5W MINI-BAG PLUS 50 ML IV SCH ×2 (00:21→05:36)
[2018-11-28] MEDS: LR 1,000 ML IV SCH ×2 (00:46→08:46)
[2018-11-28] MEDS: PANTOPRAZOLE 40MG INJ (PROTONIX) (C9113) IV SCH (05:36)
[2018-11-28 06:00] VITALS: BP 135/68
[2018-11-28 06:01] LABS: HEMATOCRIT 31.6 % (42.0-52.0); HEMOGLOBIN 10.1 g/dl (13.5-17.5); MEAN CORPUSCULAR HEMOGLOBIN 30.1 pg (27.0-33.0); MEAN CORPUSCULAR VOLUME 94.3 fl (80.0-96.0); PLATELET COUNT, AUTOMATED 124 10^3/uL (150-450); RED BLOOD COUNT 3.35 10^6/uL (4.30-6.10); WHITE BLOOD COUNT 6.2 10^3/uL (4.0-10.0)
[2018-11-28 06:18] LABS: CALCIUM LEVEL 7.6 MG/DL (8.8-10.2); CREATININE FOR GFR 3.77 MG/DL (0.70-1.30); GLOMERULAR FILTRATION RATE 16.8 (>42); MAGNESIUM LEVEL 1.9 MG/DL (1.8-2.4); POTASSIUM SERUM 4.1 MEQ/L (3.5-5.1)
[2018-11-28] MEDS: ENOXAPARIN 30 MG/0.3 ML SYR (J1650) SC SCH (08:07)
[2018-11-28] MEDS: SENOKOT S TAB PO SCH (08:07)
[2018-11-28 09:27] LABS: FREE T4 1.04 NG/DL (0.76-1.46); THYROID STIMULATING HORMONE 5.82 uIU/ML (0.358-3.740)
--- NOTE | 2018-11-28 10:24 | IPNPDOC ---
Subjective Date Seen The patient was seen on 11/28/18. time of service 852am Subjective Chief Complaint/HPI abdominal pain Events since last encounter The patient has not had a reoccurance of his abdominal pain, his NG was removed, he is tolerating food and anticipates going home later on today. Per d/w nursing staff his HR was in the 40s earlier on today. He was asymptomatic at the time. Objective Physical Examination Other physical findings VITAL SIGNS: See below GEN: Well-nourished, well-developed, no apparent distress HEENT: NG tube to low wall to gravity, mucous membranes slightly dry. CHEST: Port-A-Cath of right upper chest, heart has a regular rate and rhythm. No murmurs, rubs or gallops. Radial pulse is intact LUNGS: Clear to auscultation bilaterally on room air. ABDOMEN: Large post laparotomy scar at upper abdomen along with multiple atrophic scars from port placement. Bowel sounds are active, and the abdomen is soft and nontender on palpation. EXTREMITIES: There is no lower extremity edema. NEURO: Cranial nerves II-12 grossly intact, speech is not dysarthric. PSYCH: Alert and oriented to person, place and time, able to understand and foll ow commands. Assessment /Plan Assessment is a 73-year-old male with a past medical history of CKD and metastatic pancreatic cancer who has developed small bowel resection after having a Whipple Procedure. We were consulted to evaluate the patient because of an arrhythmia. 1 . Frequent PVCs. The patient denies having any cardiac symptoms, history of cardiovascular problems are hypertension. The EKG done in Apr also showed PVCs. He is not taking any medications that are known to cause PVCs. The PVCs are likely benign. The Echo was unremarkable. Plan: no additional intervention 2. Asymptomatic Bradycardia EKG and Troponin did not show signs of ischemia. TSH and T4 were unremarkable. He is not taking beta blockers Plan: no additional intervention. Rest of management per primary team. Thank you for consulting us. Plan/VTE VTE Prophylaxis Ordered?: Yes (lovenox) VS, I&O, 24H, Fishbone Vital Signs/I&O Vital Signs Date Time Temp Pulse Resp B/P (MAP) Pulse Ox O2 Delivery O2 Flow Rate FiO2 11/28/18 08:20 44 11/28/18 06:00 97.3 16 135/68 (90) 94 11/24/18 18:31 Room Air I&O- Last 24 Hours up to 6 AM 11/28/18 06:00 Intake Total 3015 ml Output Total 2175 ml Balance 840 ml Laboratory Data 24H LABS Laboratory Tests 2 11/28/18 05:32: Nucleated Red Blood Cells % (auto) 0.0, Anion Gap 6L, Glomerular Filtration Rate 16.8L, Blood Urea Nitrogen 53H, Creatinine 3.77H, Sodium Level 145, Potassium Level 4.1, Chloride Level 116H, Carbon Dioxide Level 23, Calcium Level 7.6L, Magnesium Level 1.9, Thyroid Stimulating Hormone (TSH) 5.820H, Free Thyroxine 1.04 CBC/BMP Laboratory Tests 11/28/18 05:32 Red Blood Count 3.35 L, Mean Corpuscular Volume 94.3, Mean Corpuscular Hemoglobin 30.1, Mean Corpuscular Hemoglobin Concent 32.0, Red Cell Distribution Width 13.0, Calcium Level 7.6 L OMAR DIAZ MD Nov 28, 2018 10:24
--- NOTE | 2018-11-28 12:49 | HPE ---
DATE OF ADMISSION: 11/25/2018 CHIEF COMPLAINT: Abdominal pain. HISTORY OF PRESENT ILLNESS: The patient is a 73-year-old male who presents with a couple day history of increasing upper abdominal distention and pain associated with nausea and vomiting. He has had similar symptoms in the past over eight times with small bowel obstructions that were treated conservatively with nasogastric (NG) tube decompression and never required any surgery. This all started after having a Whipple procedure for a pancreatic cancer back in 2000. This current episodes has been going on for about 48 hours. In the emergency room (ER), he had a NG tube inserted already. He has had some improvement of his symptoms, but labs showed an elevated white count as well as a CT findings suspicious for a small bowel obstruction located within adhesions in the mid upper abdomen. Therefore, I was called to evaluate. During exam, he was still slightly distended. He had some bilious output from his NG tube but was still complaining of upper abdominal pains. No fevers or chills. No recent flatus. Last bowel movement was early this morning. No recent travel or trauma. No recent changes in medications or diet. PAST MEDICAL HISTORY: Pancreatic cancer, hydropneumothorax, chronic kidney disease. PAST SURGICAL HISTORY: MediPort placement, Whipple procedure. SOCIAL HISTORY: Denies current drug, alcohol, or tobacco abuse. FAMILY HISTORY: Noncontributory. ALLERGIES: None. MEDICATIONS: Tamsulosin. REVIEW OF SYSTEMS: Pertinent positive and negatives as staged in the history of present illness (HPI). PHYSICAL EXAMINATION: General: Alert and oriented times three in no acute distress. Vitals: Temperature 98.1, pulse 75, respirations 19, blood pressure 138/73, pulse ox 98% room air. HEENT: Pupils equally round and react to light and accommodation. Heart: S1 and S2, regular rate and rhythm. Lungs: Clear to auscultation bilaterally. Abdomen: Soft. Tender palpation in the upper abdomen with distention. No rebound or guarding. Extremities: No clubbing, cyanosis or edema. LABORATORY DATA: Potassium 4.1, creatinine 3.84, white count 15.6, platelets 153. IMAGING STUDIES: CT of abdomen and pelvis shows postsurgical changes near the pancreatic haead. No recurrent mass identified. Multiple dilated loops of small bowel with multiple interloop stranding consistent with small bowel obstruction likely related to presence of adhesions, fecalization of the small bowel, mild prostatic hyperplasia and progressive lung metastasis. ASSESSMENT/PLAN: The patient is a 73-year-old male with history of pancreatic cancer with lung mets currently presenting with a small bowel obstruction likely secondary to adhesions from his previous Whipple surgery. Recommendation at this time is to treat him conservatively with IV fluid, NG tube to low intermittent suction, antibiotics, and see if this will relieve his bowel obstruction like it has in the past. If this is unsuccessful after 72 hours, then we will discuss surgical intervention with him. He understands the plan and already has the NG tube in place.
--- NOTE | 2018-11-28 14:31 | DSES ---
DATE OF ADMISSION: 11/25/2018 DATE OF DISCHARGE: 11/28/2018 ADMISSION DIAGNOSIS: Small bowel obstruction secondary to adhesions. DISCHARGE DIAGNOSIS: Small bowel obstruction secondary to adhesions. HOSPITAL COURSE: Patient was admitted on 11/25/2018 due to upper abdominal pain and small bowel obstruction. He has been treated conservatively with nasogastric (NG) tube decompression. Yesterday, he started having some bowel movements and passing lots of flatus. NG tube output was next to none. He was able tolerate the NG tube being clamped for 24 hours. The tube was then removed. He has tolerated the NG tube, a regular diet overnight without any nausea, vomiting, or abdominal pain. He is up ambulating and has no problems. Plan is to discharge home today. He can followup with me in the office as needed. He should followup with his primary care within a week due to some bradycardia during admission. I did have him seen the medicine service while he was here. They have not really change his medications around too significantly. He has all of our numbers to call if there are any questions, and he can followup as needed. edited: 11/29/2018 0725 tkf MTDD
== END 2018-11-28 10:25 | disposition home or self-care (01) | DRG 389 ==
LOC: M ED 18:19 → M ED INP 11-25 00:46 → M MSPAV 11-25 01:56
PROVIDERS: ADMIT Surgery; ATTEND Surgery
DX: K56.609 Unspecified intestinal obstruction, unspecified as to partial versus complete obstruction (principal); C78.00 Secondary malignant neoplasm of unspecified lung; Z85.07 Personal history of malignant neoplasm of pancreas; Z87.891 Personal history of nicotine dependence; N18.9 Chronic kidney disease, unspecified

== ENCOUNTER → 2018-12-06 | Outpatient (CLI) | payer MEDICARE ==
[~2018-12-06] MED LIST changes: +TAMS1CAP17 PO
--- NOTE | 2018-12-09 09:58 | REP ---
HISTORY: History of pancreatic carcinoma. COMPARISON: 08/16/2018 Assess chemotherapy response. The prior examination showed multiple hypermetabolic lung lesions most of which were cavitary. After the intravenous administration of 7.24 mCi of FDG-18, triplane whole body PET/CT was performed from the skull base to the mid thigh. The six pulmonary parenchymal lesions seen on the prior exam are again noted today. They do not appear to have changed significantly in their size or degree of hypermetabolism with only five of the lesions being truly hypermetabolic with one small lesion in the anterior right upper lobe having increased avidity for FDG without reaching the threshold for hypermetabolism of 2.5. There are no new abnormal hypermetabolic lung lesions. There is no abnormal hypermetabolic activity seen in the mediastinum or pulmonary shirley. No new abnormal hypermetabolic activity has developed in the neck, abdomen or pelvis. IMPRESSION: Essentially stable PET/CT findings as described above. Electronically Signed by Clint Ortega DO 12/09/2018 09:05 A
== END ==
LOC: M PLARAD 12:27
PROVIDERS: ATTEND Internal Medicine Hematology & Oncology
DX: C25.0 Malignant neoplasm of head of pancreas (principal)
CPT/HCPCS: 78815; A9552

== ENCOUNTER → 2018-12-22 | Outpatient (REF) | payer MEDICARE | LOC: M SFHCLERA 11:06 | PROVIDERS: ATTEND Nurse Practitioner Family | DX: J02.9 Acute pharyngitis, unspecified (principal) ==

== ENCOUNTER 2019-02-26 17:32 | Inpatient (IN) | payer MEDICARE ==
[~2019-02-26] VITALS: Ht 177.8 cm; Wt 86.5 kg
[~2019-02-26 17:32] MED LIST changes: +SODIUM CHLORIDE 0.9% INJ 10 ML SYR IV SCH
[2019-02-26] MEDS ORDERED: GNP250TA9 PO (17:44)
[2019-02-26] MEDS ORDERED: CALCIUM CHLORIDE 10% 1 GM in D5W 100 ML IV ONE (19:15)
[2019-02-26] MEDS ORDERED: NS 1,000 ML IV SCH (19:15)
[2019-02-26 20:08] LABS: BASO % 0.3 % (0.0-1.0); EOS # 0.3 10^3/uL (0.0-0.5); EOS % 2.7 % (0.0-3.0); HEMATOCRIT 28.9 % (42.0-52.0); HEMOGLOBIN 9.4 g/dl (13.5-17.5); IONIZED CALCIUM 3.4 MG/DL (4.5-5.3); LYMPH # 0.8 10^3/uL (1.5-5.0); LYMPH % 8.2 % (24.0-44.0); MEAN CORPUSCULAR HEMOGLOBIN 30.9 pg (27.0-33.0); MEAN CORPUSCULAR HGB CONC 32.5 g/dl (32.0-36.5); MEAN CORPUSCULAR VOLUME 95.1 fl (80.0-96.0); MONO # 0.6 10^3/uL (0.0-0.8); MONO % 5.7 % (0.0-5.0); NEUTROPHILS % 82.4 % (36.0-66.0); PLATELET COUNT, AUTOMATED 139 10^3/uL (150-450); RED BLOOD COUNT 3.04 10^6/uL (4.30-6.10); WHITE BLOOD COUNT 9.7 10^3/uL (4.0-10.0)
[2019-02-26 20:35] LABS: CALCIUM LEVEL 5.6 MG/DL (8.8-10.2); CK-MB VALUE MASS 3.8 NG/ML (<3.6); CREATININE FOR GFR 6.33 MG/DL (0.70-1.30); GLOMERULAR FILTRATION RATE 9.2 (>42); MAGNESIUM LEVEL 1.4 MG/DL (1.8-2.4); MB/CK RELATIVE INDEX 1.48 (< OR =4); PHOSPHORUS LEVEL 7.6 MG/DL (2.5-4.9); POTASSIUM SERUM 3.8 MEQ/L (3.5-5.1); TROPONIN I 0.02 NG/ML (< 0.10)
--- NOTE | 2019-02-26 20:56 | HPEPDOC ---
[facility] Medical History & Physical Date of Admission Feb 26, 2019 Date of Service: Feb 26, 2019 Attending Physician: OMAR DIAZ MD History and Physical TIME OF SERVICE: 9:20 PM CHIEF COMPLAINT: Sent by oncologist HISTORY OF PRESENT ILLNESS: This is a 74 old male that was sent to the hospital by his oncologist for evaluation of abnormal labs. He has been having cramping at the back of his legs and episodes of hand paralysis/spasms for about 1 month which he attributes to hypomagnesemia; he has been taking Mg supplements. He denies having chest pain, denies having palpitations, denies having falls, denies feeling weak, denies having fevers, denies having chills. REVIEW OF SYSTEMS: 12 point review of systems negative except as listed in HPI PAST MEDICAL/ SURGICAL HISTORY: Pancreatic cancer, managed with Whipple in 2000 and chemotherapy. 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 Status post MediPort SOCIAL HISTORY: Smokes tobacco products FAMILY HISTORY: Asthma ALLERGIES: Please see below. HOME MEDICATIONS: Please see below. PHYSICAL EXAMINATION: VITAL SIGNS: Please see below. GENERAL APPEARANCE: Well-nourished, well-developed, not in apparent distress HEENT: Normocephalic, atraumatic, mucous membranes dry CARDIOVASCULAR: Regular rate and rhythm. No murmurs, rubs or gallops LUNGS: Clear to auscultation bilaterally on room air ABDOMEN: Bowel are hypoactive. Abdomen is soft and nontender on palpation MUSCULOSKELETAL: Range of motion intact in all 4 extremities INTEGUMENT: Appears to have mild jaundice NEUROLOGICAL: equivocal Chvostek's sign PSYCHIATRIC: Alert and oriented person, place and time, able to understand and follow commands LABORATORY DATA: See below. ASSESSMENT: Mr. 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 PLAN: 1 Symptomatic Hypocalcemia with concurrent Hypomagnesemia He is complaining of having left cramps and hand paralysis The differential diagnosis includes malabsorption vs small bowel bypass vs vitamin D deficiency vs chronic renal insufficiency vs hypoparathyrodism vs hypomagnesemia vs and hyperphosphatemia, The ionized calcium is 3.4 The EKG showed normal sinus rhythm with PVCs and a QTC 456 He received 1 g of calcium in the ED Plan: admit to ICU bc laryngeal spasm, seizures, SC and QTC prolongation leading to sudden can occur w Ca < 7.5 without prodromal symptoms/ seizure precautions with Ativan PRN /telemetry / give 1 g of Mag prior to giving an additional 1G of calcium and then follow-up CMP, start Vitamin D 4000 IU daily for now / pending the results of his serum albumin, vitamin D, Phosphorus, PTH, magnesium the day time team can determine if oncology and or endo consults are warranted / 2. ASTON on CKD4/5 ASTON may be due to dehydration He reports his CKD's due to chemotherapy Baseline Cr 3.52 & GFR 18.1 current Cr 6.33 & GFR 9.2 Plan: Is/Os, daily weights / Renal diet / f/u ABG,UA ulytes for FENa, uric acid, CK, renal US, / IVF / nephro consult to determine if he needs to start dialysis 3. Normocytic Normochromic Anemia Plan: pending results of the reticulocyte #, iron panel w ferritin, B12, RBC folate, thiamine, stool occult, the day time team can f/u w Nephro to determine if he is a candidate for Epogen and Venofer 4. Pancreatic cancer with mets to the lungs Plan: f/u w Oncologist on an out patient basis 5. Tobacco abuse Declined Nicotine patch Plan: Smoking cessation education DVT prophylaxis with heparin Disposition pending clinical course Vital Signs Vital Signs Date Time Temp Pulse Resp B/P (MAP) Pulse Ox O2 Delivery O2 Flow Rate FiO2 02/26/19 20:45 98.5 61 18 133/65 (87) 99 02/26/19 17:33 Room Air Laboratory Data Labs 24H Laboratory Tests 2 02/26/19 19:54: Immature Granulocyte % (Auto) 0.7, Neutrophils (%) (Auto) 82.4H, Lymphocytes (%) (Auto) 8.2L, Monocytes (%) (Auto) 5.7H, Eosinophils (%) (Auto) 2.7, Basophils (%) (Auto) 0.3, Neutrophils # (Auto) 8.0, Lymphocytes # (Auto) 0.8L, Monocytes # (Auto) 0.6, Eosinophils # (Auto) 0.3, Basophils # (Auto) 0.0, Nucleated Red Blood Cells % (auto) 0.0, Anion Gap 11, Glomerular Filtration Rate 9.2L, Calcium Level 5.6*L, Whole Blood Ionized Calcium 3.4*L, Phosphorus Level 7.6H, Magnesium Level 1.4L, Total Creatine Kinase 256, Creatine Kinase MB 3.8H, Creatine Kinase MB Relative Index 1.48, Troponin I 0.02 CBC/BMP Laboratory Tests 02/26/19 19:54 Home Medications Scheduled Magnesium Oxide (Magnesium) 250 Mg Tablet, 250 MG PO QHS Tamsulosin Hcl (Tamsulosin HCl) 0.4 Mg Capsule, 0.4 MG PO QHS Allergies Coded Allergies: No Known Allergies (Unverified , 07/27/18) A-FIB/CHADSVASC A-FIB History Current/History of A-Fib/PAF?: No Current PO Anticoag Therapy: No OMAR DIAZ MD Feb 26, 2019 20:56
[2019-02-26] MEDS ORDERED: ACETAMINOPHEN TAB 650MG DOSE (2X325MG) PO PRN (21:00)
[2019-02-26 22:11] VITALS: BP 140/62
[2019-02-26 22:34] LABS: MAGNESIUM LEVEL 1.3 MG/DL (1.8-2.4)
[2019-02-26] MEDS ORDERED: MAG SULF 1GM/100ML (MAG RUN) 1 GM in IV 1 EA IV ONE (22:45)
[2019-02-26] MEDS ORDERED: CALCIUM CHLORIDE 10% 1 GM/10 ML SYR IV STA (22:47)
[2019-02-26] MEDS ORDERED: LORazepam 2 MG/ML VIAL (J2060) IV PRN (23:00)
[2019-02-26 23:20] LABS: PHOSPHORUS LEVEL 7.3 MG/DL (2.5-4.9)
[2019-02-27 00:01] VITALS: BP 140/66
[2019-02-27] MEDS ORDERED: CALCIUM CHLORIDE 10% 1 GM in D5W 100 ML IV ONE ×2 (00:30→03:30)
[2019-02-27] MEDS: TAMSULOSIN 0.4 MG CAP PO SCH ×2 (00:54→20:41)
[2019-02-27 02:52] LABS: ALBUMIN 2.8 GM/DL (3.2-5.2); BILIRUBIN,TOTAL 0.3 MG/DL (0.2-1.0); CALCIUM LEVEL 6.9 MG/DL (8.8-10.2); CREATININE FOR GFR 5.97 MG/DL (0.70-1.30); GLOMERULAR FILTRATION RATE 9.8 (>42); POTASSIUM SERUM 3.5 MEQ/L (3.5-5.1); TOTAL PROTEIN 5.7 GM/DL (6.4-8.2)
[2019-02-27 03:46] LABS: MAGNESIUM LEVEL 1.5 MG/DL (1.8-2.4)
[2019-02-27 04:00] VITALS: BP 132/63
[2019-02-27] MEDS ORDERED: MAG SULF 1GM/100ML (MAG RUN) 1 GM in IV 1 EA IV ONE (04:00)
[2019-02-27 04:15] LABS: ABG BASE EXCESS -13.6 (-2.0-2.0); ABG HCO3 12.2 MEQ/L (22.0-26.0); ABG O2 SATURATION 99.1 % (95.0-99.0); ABG PARTIAL PRESSURE CO2 27.7 mmHg (35.0-45.0); ABG PARTIAL PRESSURE O2 186.9 mmHg (75.0-100.0); ABG STANDARD HCO3 13.8 MEQ/L (22.0-26.0)
[2019-02-27 05:09] LABS: HEMATOCRIT 28.1 % (42.0-52.0); HEMOGLOBIN 9.3 g/dl (13.5-17.5); MEAN CORPUSCULAR HEMOGLOBIN 31.2 pg (27.0-33.0); MEAN CORPUSCULAR HGB CONC 33.1 g/dl (32.0-36.5); MEAN CORPUSCULAR VOLUME 94.3 fl (80.0-96.0); PLATELET COUNT, AUTOMATED 135 10^3/uL (150-450); RED BLOOD COUNT 2.98 10^6/uL (4.30-6.10); WHITE BLOOD COUNT 7.9 10^3/uL (4.0-10.0)
[2019-02-27 05:32] LABS: CALCIUM LEVEL 6.6 MG/DL (8.8-10.2); CREATININE FOR GFR 5.87 MG/DL (0.70-1.30); MAGNESIUM LEVEL 1.6 MG/DL (1.8-2.4); POTASSIUM SERUM 3.6 MEQ/L (3.5-5.1)
[2019-02-27 05:35] LABS: URIC ACID 6.4 MG/DL (3.5-7.2)
[2019-02-27 05:36] LABS: PERCENT SATURATION 46.2 % (19.7-50.0)
[2019-02-27 08:00] VITALS: BP 138/62
[2019-02-27] MEDS: VITAMIN D 1,000 INTERNATIONAL UNITS TABLET PO SCH (08:51)
[2019-02-27] MEDS: HEPARIN SOD (PORCINE) 5000 UNITS/ML VIAL SC SCH ×2 (08:51→20:41)
[2019-02-27] MEDS ORDERED: FLUBLOK(EGG FREE)(QUAD)INFLUENZA VACC 0.5ML SYRINGE (90682)18YRS&OLDER IM SCH (09:00)
[2019-02-27 09:07] LABS: CREATININE FOR GFR 5.82 MG/DL (0.70-1.30); GLOMERULAR FILTRATION RATE 10.1 (>42); POTASSIUM SERUM 3.8 MEQ/L (3.5-5.1)
[2019-02-27 09:08] LABS: ALBUMIN 2.8 GM/DL (3.2-5.2); BILIRUBIN,TOTAL 0.4 MG/DL (0.2-1.0); CALCIUM LEVEL 6.5 MG/DL (8.8-10.2); PHOSPHORUS LEVEL 7.4 MG/DL (2.5-4.9); TOTAL PROTEIN 5.6 GM/DL (6.4-8.2)
[2019-02-27 09:18] LABS: PTH INTACT 747.5 PG/ML (18.5-88.0); TOTAL 25(OH) VITAMIN D 14.9 NG/ML (30.0-100.0)
[2019-02-27 12:00] VITALS: BP 138/98
[2019-02-27] MEDS: OYSTER SHELL CALCIUM 500 MG TAB PO SCH ×3 (12:29→20:41)
[2019-02-27] MEDS: SODIUM BICARBONATE 150 MEQ in STERILE WATER LITER BAG 1,000 ML IV SCH (12:30)
--- NOTE | 2019-02-27 13:57 | CR ---
DATE OF CONSULTATION: 02/27/2019 REQUESTING PROVIDER: Tosin Carbone MD REASON FOR CONSULTATION: Acute and chronic renal failure and severe hypocalcemia. HISTORY OF PRESENT ILLNESS: Mr. Acosta is a 74-year-old gentleman with known history of pancreatic cancer, status post a Whipple procedure in 2000 and chemotherapy. He is known to have metastasis in his lung for which he is being followed by oncology. He also follows with nephrology in [place] and is known to have stage IV of chronic kidney disease (CKD) at baseline which is felt to be related to his prior chemotherapy. The patient reports that dialysis has been mentioned, however no preparation has been done so far. In any event, yesterday labs done by the oncologist were noted significantly abnormal as he had severe hypocalcemia and the patient also reports cramps in his hands and calf muscles for the last one month. He is now admitted to the intensive care unit and has received magnesium and calcium supplementation. This morning his symptoms have improved, however, his kidney function has not improved. His serum creatinine was 5.87 this morning and has been repeated, still 5.82. A nephrology consultation is requested and the patient is seen this morning in the intensive care unit. PAST MEDICAL AND SURGICAL HISTORY: Significant for: 1. History of pancreatic cancer, status post Whipple procedure in 2000 followed by chemotherapy. 2. Metastatic lung lesions. 3. History of chronic kidney disease, stage IV. 4. History of Infusaport placement. 5. Prior history of hydropneumothorax. 6. Hypocalcemia. 7. Anemia. PERSONAL AND SOCIAL HISTORY The patient has a history of smoking, but denies any alcohol or drug use. FAMILY HISTORY: Significant for asthma. There is no family history for end-stage renal disease. MEDICATIONS: His home medications included only magnesium oxide 250 mg at bedtime and tamsulosin 0.4 mg at bedtime. In the hospital he has received intravenous magnesium and calcium and also receiving oral vitamin D 4000 units daily, heparin 5000 units every 12 hours and Ativan 1 mg p.r.n. for seizures, tamsulosin 0.4 mg at bedtime and Tylenol as needed. ALLERGIES: The patient has no known drug allergies. REVIEW OF SYSTEMS: The patient reports cramps in his hands and calf muscles for the last one month. Those have improved since he received IV calcium and magnesium. He denies any fever or chills. Ears, nose and throat are unremarkable. Cardiovascular system negative for dyspnea or chest pain. Respiratory system negative for cough or hemoptysis. GI system negative for vomiting or diarrhea. system is negative for dysuria or hematuria. Hematological system is significant for anemia and no anticoagulation. Musculoskeletal system negative for leg edema or back pain. Psychosocial system negative for depression or anxiety. Neurological system is negative for seizures. He did have cramps related to hypocalcemia. PHYSICAL EXAMINATION: Temperature 99.5 degrees Fahrenheit, heart rate 62 per minute and respiratory rate 18 per minute. Blood pressure 138/62 mmHg and oxygen saturation 99% on room air. His head is atraumatic. Pupils equal and reactive to light and sclera anicteric. Extraocular movements are intact. There is no oral thrush or ulcers. Heart sounds are regular and without a pericardial friction rub. Lungs sound clear to auscultation bilaterally. Abdomen is soft and nontender and without a palpable organomegaly. Bowel sounds are normal. Extremities have no cyanosis or clubbing. Skin has no rash or ulcers. Neurologically he is awake, alert and oriented times three. LABORATORY DATA On February 26 sodium 142, potassium 3.8, BUN 96 and creatinine 6.33. Calcium level was 5.6 and ionized calcium 3.4. Phosphorus 7.6 and magnesium 1.4. This morning's labs showed sodium 143, potassium 3.8, CO2 15, BUN 90, creatinine 5.82, calcium 6.5 and phosphorus 7.6. Magnesium level is now up to 2.0. Total protein 5.6 and albumin 2.8. WBC count is 7.9, hemoglobin 9.3 and hematocrit 28.1. A blood gas showed a pH of 7.26, pCO2 27.7, pO2 187 and bicarb 14. PROBLEMS: 1. Acute on chronic renal failure. The patient most likely has advanced chronic kidney disease at baseline. 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 I tried to call his but there was no answer. At this point, there is no emergent need for dialysis. However, it seems that he has advanced renal failure and likely to require dialysis pretty soon. 2. Metabolic acidosis most likely related to advanced renal failure. We will start him on some IV bicarbonate drip and recheck his chemistry tomorrow. Sodium bicarbonate 150 mEq in each liter of IV fluid will be given at 100 mL per hour. 3. Hypoglycemia most likely this is multifactorial and advanced renal failure probably contributing to it in addition to his Whipple procedure. The patient has received intravenous calcium gluconate and will start him on some oral calcium supplement with 1000 mg t.i.d. This will also help with his elevated phosphorus level. 4. Anemia. He does have moderate anemia also which is probably related to advanced renal failure as his iron studies are appropriate with total iron level of 86 and saturation 46.2%. Will consider starting Aranesp during this admission. Thank you for involving me in the care of Mr. Acosta. I will follow him along with you.
--- NOTE | 2019-02-27 15:09 | REP ---
Clinical: Acute renal insufficiency. Technique: Real time macedo scale ultrasound examination using curved array transducer. Findings: Kidneys demonstrate increased central sinus fat suggesting chronic medical renal disease. The right kidney measures 9.4 x 4.1 x 4.7 cm with small amount of perinephric fluid, but no hydronephrosis, nephrolithiasis, cystic or renal mass lesion appreciated. The left kidney measures 10.4 x 3.9 x 4.8 cm without hydronephrosis, nephrolithiasis, cystic or renal mass lesion. Bladder is grossly unremarkable. Impression: 1. Chronic medical renal disease. No hydronephrosis. 2. Very small amount of right perinephric fluid is nonspecific. Electronically Signed by David Green MD 02/27/2019 03:01 P
[2019-02-27 16:00] VITALS: BP 130/62
[2019-02-27 16:30] LABS: ALBUMIN 2.7 GM/DL (3.2-5.2); CALCIUM LEVEL 6.3 MG/DL (8.8-10.2); CREATININE FOR GFR 5.81 MG/DL (0.70-1.30); GLOMERULAR FILTRATION RATE 10.2 (>42); PHOSPHORUS LEVEL 6.9 MG/DL (2.5-4.9); POTASSIUM SERUM 3.9 MEQ/L (3.5-5.1)
[2019-02-27] MEDS ORDERED: D5W IV ONE (18:15)
[2019-02-27] MEDS ORDERED: CALCIUM CHLORIDE IV ONE (18:15)
[2019-02-27 20:00] VITALS: BP 123/69
--- NOTE | 2019-02-27 22:32 | ECGEPIP ---
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
[2019-02-28] VITALS (7 sets, daily range): BP systolic 120–148; BP diastolic 59–76
[2019-02-28] MEDS: SODIUM BICARBONATE 150 MEQ in STERILE WATER LITER BAG 1,000 ML IV SCH ×2 (04:22→18:28)
[2019-02-28 04:49] LABS: HEMATOCRIT 26.2 % (42.0-52.0); HEMOGLOBIN 8.7 g/dl (13.5-17.5); MEAN CORPUSCULAR HGB CONC 33.2 g/dl (32.0-36.5); MEAN CORPUSCULAR VOLUME 93.2 fl (80.0-96.0); PLATELET COUNT, AUTOMATED 133 10^3/uL (150-450); RED BLOOD COUNT 2.81 10^6/uL (4.30-6.10); WHITE BLOOD COUNT 7.2 10^3/uL (4.0-10.0)
[2019-02-28 05:06] LABS: ALBUMIN 2.7 GM/DL (3.2-5.2); CALCIUM LEVEL 7.6 MG/DL (8.8-10.2); CREATININE FOR GFR 5.66 MG/DL (0.70-1.30); GLOMERULAR FILTRATION RATE 10.5 (>42); MAGNESIUM LEVEL 1.5 MG/DL (1.8-2.4); PHOSPHORUS LEVEL 6.8 MG/DL (2.5-4.9); POTASSIUM SERUM 3.6 MEQ/L (3.5-5.1)
[2019-02-28] MEDS: MAG SULF 1GM/100ML (MAG RUN) 1 GM in IV 1 EA IV SCH ×3 (08:09→10:19)
[2019-02-28] MEDS: OYSTER SHELL CALCIUM 500 MG TAB PO SCH ×3 (09:09→20:30)
[2019-02-28] MEDS: HEPARIN SOD (PORCINE) 5000 UNITS/ML VIAL SC SCH ×2 (09:09→20:30)
[2019-02-28] MEDS: VITAMIN D 1,000 INTERNATIONAL UNITS TABLET PO SCH (09:09)
--- NOTE | 2019-02-28 12:49 | IPNPDOC ---
Date Seen The patient was seen on 02/28/19. Progress Note SUBJECTIVE: 74-year-old male with past medical history of pancreatic cancer status post Whipple in 2000 with lung metastases, CKD, hydropneumothorax was admitted for severe hypocalcemia and hypomagnesemia. Patient has chronic kidney disease stage IV at baseline, reportedly follows with engineer system administrator in [place], but doesn't take any calcium supplements, vitamin D supplements or phosphate binders at this time; is only on medication is magnesium supplementation. He was treated with IV calcium gluconate and calcium chloride in the ICU, levels are now acceptable. His renal function is also worse then previous labs, evaluated by nephrology, dialysis was recommended, but patient and refused until further discussion with her engineer system administrator in [place]. Patient was experiencing hand and calf muscle spasms prior to admission, which were ongoing for about a month, have completely resolved after calcium supplementation. Patient is currently comfortable in bed, without any complaints at this time, wishing to go home. He denies any shortness of breath, chest pain, nausea, vomiting, abdominal pain or diarrhea. 10 point review of system was negative except for above PHYSICAL EXAMINATION: VITAL SIGNS: Please see below. GENERAL: No distress HEENT: Normocephalic, atraumatic, moist mucous membranes NECK: Supple CARDIOVASCULAR EXAMINATION: S1, S2, no murmurs RESPIRATORY EXAMINATION: Clear to auscultation, no wheezing, [id number] on right side ABDOMINAL EXAMINATION: Soft, nontender, nondistended, positive bowel sounds EXTREMITIES: Range of motion intact SKIN: No rash NEUROLOGICAL EXAMINATION: Alert and oriented 3, no focal deficits PSYCHIATRIC EXAMINATION: Calm and cooperative LABORATORY DATA, IMAGING STUDIES, MICROBIOLOGY: Please see below. DVT prophylaxis ordered?: Yes ASSESSMENT AND PLAN: 74-year-old male with history of metastatic pancreatic cancer status post Whipple procedure and chronic kidney disease is admitted for acute kidney injury and severe electrolyte abnormality. PROBLEMS: 1. Severe electrolyte abnormality: . Hypocalcemia: Treated with IV calcium gluconate, calcium chloride, current levels acceptable, continue oral calcium supplementation 3 times a day. Hypomagnesemia: Supplemented IV. Electrolytes within acceptable range at this time, we'll downgrade to PCU. 2. Acute on chronic kidney disease: . Stage IV at baseline, due to chemotherapy, followed by engineer system administrator in [place], not on any typical renal medications in the outpatient setting, likely the causative agent for patient's metabolic acidosis and electrolyte abnormalities. Continue vitamin D supplementation, oral calcium supplementation & Aranesp. Evaluated by nephrology, dialysis was recommended, patient and would like to wait until discussion with engineer system administrator in [place], attempted to contact, awaiting callback. 3. Non-anion gap metabolic acidosis: Due to chronic kidney disease, continue bicarbonate drip as per nephrology. 4. Metastatic pancreatic cancer. Status post Whipple's procedure in 2000, has liver metastases, chemotherapy was stopped 2 years ago due to renal toxicity. DVT prophylaxis: Heparin subcutaneous GI prophylaxis: Not needed VS, I&O, 24H, Fishbone Vital Signs/I&O Vital Signs Date Time Temp Pulse Resp B/P (MAP) Pulse Ox O2 Delivery O2 Flow Rate FiO2 02/28/19 08:00 98.4 54 16 120/59 (79) 97 Room Air I&O- Last 24 Hours up to 6 AM 02/28/19 06:00 Intake Total 2690 ml Output Total 2320 ml Balance 370 ml Laboratory Data 24H LABS Laboratory Tests 2 02/27/19 15:58: Anion Gap 11, Glomerular Filtration Rate 10.2L, Calcium Level 6.3L, Phosphorus Level 6.9H, Albumin 2.7L 02/28/19 04:14: Anion Gap 8, Glomerular Filtration Rate 10.5L, Calcium Level 7.6#L, Phosphorus Level 6.8H, Albumin 2.7L, Nucleated Red Blood Cells % (auto) 0.0, Magnesium Level 1.5L CBC/BMP Laboratory Tests 02/27/19 15:58 02/28/19 04:14 JOYCE BROWN MD Feb 28, 2019 12:49
--- NOTE | 2019-02-28 13:31 | IPN ---
DATE: 02/28/2019 Mr. Acosta is seen on his bedside in the intensive care unit. Last evening, we gave him another dose of intravenous calcium chloride due to hypocalcemia. He remains on intravenous sodium bicarbonate infusion due to metabolic acidosis and renal failure. The patient is felt to have advanced stage V of chronic kidney disease. I discussed the need for dialysis briefly yesterday, but he wanted me to talk to his primary merchandise planning manager in [place]. He has provided me the name this morning and I did talk to his primary merchandise planning manager, who concurred for initiating dialysis as the patient has severe symptomatic hypocalcemia with tetany, metabolic acidosis and advanced renal failure with GFR in the range of about 10 mL/minute. In the meantime, the patient has been resistant and his is also present today. I spent at least 45 minutes face to face with both of them explaining the potential need for dialysis and procedure. In the meantime, the patient is currently asymptomatic. PHYSICAL EXAMINATION: Temperature 98.4 degrees Fahrenheit, heart rate 60 per minute and respiratory rate 16 per minute. Blood pressure 120/59 mmHg and oxygen saturation 97% on room air. His head is atraumatic. Neck is supple and without jugular venous distention (JVD) or thyroid enlargement. Pupils equal and reactive to light. Sclera is anicteric. No oral thrush or ulcers noted. Heart sounds are regular and without a pericardial friction rub. Lungs clear to auscultation. Abdomen is soft and nontender. Bowel sounds are normal. Extremities have no cyanosis or clubbing. Neurologically he is awake, alert and oriented times three. LABORATORY DATA Sodium 143, potassium 3.6. CO2 is up to 20, BUN is still 86 and creatinine 5.66 with a GFR of 10.5. Calcium is now 7.6 and albumin 2.7. Magnesium 1.5 and phosphorous 6.8. WBC count is 7.2, hemoglobin 8.7 and hematocrit 26.2. PROBLEMS: 1. Recurrent severe hypocalcemia, most likely related to advanced renal failure. The patient remains on oral calcium carbonate 1000 mg three times a day along with vitamin D supplement. His renal profile will be repeated again later this afternoon and tomorrow morning. 2. Renal failure. I have discussed with the patient and his at length about his condition. I have explained that his kidney function is in stage V of kidney disease with GFR about 10 mL/minute. I have strongly recommended need for dialysis, however the patient and his are both not sure about it. The patient also wished to consider peritoneal dialysis and I have discussed and explained the procedures of hemodialysis and peritoneal dialysis in detail and answered questions. I feel that the patient may not be a suitable candidate due to his prior Whipple procedure and history of intestinal obstructions with adhesions. In any event, I have advised to start with hemodialysis now and then consider switch to peritoneal dialysis later when his condition is considered more stable. The patient wants to think about it and will let me know. I did discuss with his primary merchandise planning manager in [place] who also concurred with the plan for starting dialysis. 3. Metabolic acidosis. Improvement is noted with sodium bicarbonate infusion and will continue with the same for the next 24 hours, then we can consider switching him to oral sodium bicarbonate if he does not agree for starting dialysis. 4. Hypocalcemia. Calcium level has improved with intravenous and oral supplement. He has received multiple doses of intravenous calcium chloride since admission, with last dose given last evening. We will check his renal profile later today and see how his calcium level remains. I have explained to the patient once again that he has severe hypocalcemia with significant complications and will need to continue with calcium supplement and also start dialysis as his hypocalcemia is most likely caused by renal failure along with his other comorbid conditions. 5. Anemia. Again, most likely this is related to advanced renal failure as his iron studies are appropriate. We will give him one dose of Aranesp 100 mcg and then he can followup as an outpatient. I spent 45 minutes face to face with the patient and his explaining his condition, need for dialysis and risks and complications involved.
[2019-02-28 16:56] LABS: ALBUMIN 2.6 GM/DL (3.2-5.2); CALCIUM LEVEL 6.5 MG/DL (8.8-10.2); CREATININE FOR GFR 5.49 MG/DL (0.70-1.30); GLOMERULAR FILTRATION RATE 10.8 (>42); PHOSPHORUS LEVEL 4.9 MG/DL (2.5-4.9); POTASSIUM SERUM 3.3 MEQ/L (3.5-5.1)
[2019-02-28] MEDS ORDERED: CALCIUM CHLORIDE 10% 1 GM in D5W 100 ML IV ONE ×2 (18:30→20:00)
[2019-02-28] MEDS ORDERED: POTASSIUM CHLORIDE 10 MEQ SR TABLET PO ONE (18:30)
[2019-02-28] MEDS: TAMSULOSIN 0.4 MG CAP PO SCH (20:30)
[2019-03-01 04:30] VITALS: BP 117/59
[2019-03-01 05:22] LABS: HEMATOCRIT 26.4 % (42.0-52.0); HEMOGLOBIN 8.8 g/dl (13.5-17.5); MEAN CORPUSCULAR HEMOGLOBIN 30.9 pg (27.0-33.0); MEAN CORPUSCULAR HGB CONC 33.3 g/dl (32.0-36.5); MEAN CORPUSCULAR VOLUME 92.6 fl (80.0-96.0); PLATELET COUNT, AUTOMATED 129 10^3/uL (150-450); RED BLOOD COUNT 2.85 10^6/uL (4.30-6.10); WHITE BLOOD COUNT 7.4 10^3/uL (4.0-10.0)
[2019-03-01] MEDS: SODIUM BICARBONATE 150 MEQ in STERILE WATER LITER BAG 1,000 ML IV SCH (05:34)
[2019-03-01 05:53] LABS: CALCIUM LEVEL 7.5 MG/DL (8.8-10.2); CREATININE FOR GFR 5.25 MG/DL (0.70-1.30); GLOMERULAR FILTRATION RATE 11.4 (>42); PHOSPHORUS LEVEL 4.9 MG/DL (2.5-4.9); POTASSIUM SERUM 3.9 MEQ/L (3.5-5.1)
[2019-03-01] MEDS: HEPARIN SOD (PORCINE) 5000 UNITS/ML VIAL SC SCH (08:06)
[2019-03-01] MEDS: VITAMIN D 1,000 INTERNATIONAL UNITS TABLET PO SCH (08:07)
[2019-03-01] MEDS: OYSTER SHELL CALCIUM 500 MG TAB PO SCH (08:07)
[2019-03-01 08:13] VITALS: BP 116/67
[2019-03-01] MEDS ORDERED: SODIUM CHLORIDE 0.9% INJ 10 ML SYR IV PRN (08:30)
[2019-03-01] MEDS ORDERED: SODIUM CHLORIDE 0.9% INJ 10 ML SYR IV SCH (09:00)
[2019-03-01] MEDS ORDERED: DARBEPOETIN 100 MCG/0.5 ML *NON-DIALYSIS* SYRINGE (J0881) SC SCH (09:00)
--- NOTE | 2019-03-01 11:32 | IPN ---
DATE OF VISIT: 03/01/2019 Mr. Acosta is seen in this morning on his bedside. His and daughter are present in the room. Patient is feeling well and denies any complaints. Last evening his serum calcium level was down to 6.5 again and we gave him 1 gram of intravenous calcium chloride. He is also receiving oral calcium chloride three times a day. This morning his calcium level is 7.5. He was also receiving IV sodium bicarbonate drip due to metabolic acidosis and advanced renal failure and this morning his BUN is 78 and creatinine 5.25. His CO2 is now up to 25. In the meantime, he has no symptoms anymore and he wants to go home. He has a followup appointment scheduled with his primary fire code inspector in [place] on Tuesday. He does not wish to start dialysis at this point. On physical exam, patient is awake and alert and without any distress. Temperature 98.4 degrees Fahrenheit, heart rate 68 per minute and respiratory rate 18 per minute. Blood pressure 116/67 mmHg and oxygen saturation 97% on room air. Head is atraumatic. Neck supple and without jugular venous distention (JVD) or thyroid enlargement. Heart sounds regular and lungs clear to auscultation. Abdomen soft and nontender and without any palpable organomegaly. Extremities without any cyanosis or clubbing. Today's labs show sodium 140, potassium 3.9, CO2 25, BUN 78 and creatinine 5.25. Serum calcium is 7.5 today. Phosphorus is 4.9 and magnesium 2.0. Yesterday his albumin level was 2.6. WBC count is 7.4, hemoglobin 8.8 and hematocrit 26.4. PROBLEMS: 1. Acute renal failure superimposed on chronic kidney disease. Patient has advanced renal failure at baseline. Superimposed acute renal failure was most likely caused by severe metabolic acidosis and has improved slightly. However, his GFR is still only about 11.4 mL per minute. I have discussed with him at length about potential need for dialysis but he does not wish to start dialysis at this point. He will followup with his primary fire code inspector in [place] on Tuesday. I have already discussed with his fire code inspector who did agree the patient should start dialysis if needed. I am concerned about recurrence of metabolic acidosis and hypocalcemia and further worsening of kidney function. 2. Metabolic acidosis. Improved with sodium bicarbonate infusion and patient is completely asymptomatic now. 3. Hypocalcemia. Patient has had recurrent hypocalcemia and I have explained to him at great length about recurrence of his electrolyte abnormalities and symptoms. He will continue with calcium carbonate 1000 mg three times a day. He will followup with his primary fire code inspector on Tuesday. 4. Hypokalemia. Potassium level is also improved and normal now, and no intervention is needed. 5. Anemia. This is chronic and related to advanced renal failure. His iron studies were normal. Patient has been given one dose of Aranesp 100 mcg today. DISPOSITION: Patient does not wish dialysis and he is medically stable from renal standpoint for discharge. He will followup with his primary fire code inspector in [place] next week.
[2019-03-01] MEDS ORDERED: SODI650T PO (12:03)
[2019-03-01] MEDS ORDERED: CALCI50TA PO (12:03)
[2019-03-01] MEDS ORDERED: CHOL100029 PO (12:03)
[2019-03-01] MEDS ORDERED: OYST500T7 PO (12:06)
--- NOTE | 2019-03-01 12:12 | DS.PDOC ---
Discharge Summary General Date of Admission Feb 26, 2019 at 20:51 Date of Discharge 03/01/2019 Attending Physician: JOYCE BROWN MD Specialist/Consultants Involve: Nicola Parker MD Discharge Summary PROCEDURES PERFORMED DURING STAY: None. ADMITTING DIAGNOSES: 1. Hypocalcemia, chronic renal failure. DISCHARGE DIAGNOSES: 1. Hypocalcemia, chronic renal failure. COMPLICATIONS/CHIEF COMPLAINT: Hypocalcemia. HISTORY OF PRESENT ILLNESS: 74-year-old male with past medical history of pancreatic cancer status post Whipple procedure with lung metastases and chronic kidney disease, stage IV, was admitted for severe hypocalcemia with tetany. He was treated in the ICU with IV calcium supplementation along with magnesium supplementation. Calcium levels have remained in acceptable range and symptoms have resolved resolved. He will continue to take oral calcium supplementation after discharge. Based on patient's GFR he was advised by tour leader Dr. Nabil chao and his outpatient tour leader to start dialysis but patient and are resistant to the idea at this time, will like more time to think about it before deciding. There was a long discussion with the patient regarding risks and benefits of hemodialysis, all questions were answered. Patient was notified of all the risks pertaining to renal failure and complications of that including metabolic acidosis, electrolyte abnormalities, toxin build-up, fluid buildup, likelihood of arrhythmias and sudden . Patient understands and acknowledges that he is willing to take the risk at this time and will go home without initiating dialysis. He artery has an appointment with his outpatient nephr ologist for the upcoming Tuesday in [place]. He will be discharged on calcium, vitamin D and sodium bicarbonate tabs, advised patient to have repeat blood work done regularly and routine follow-ups with his tour leader and PCP. Patient's and daughter in the room who understand and agree with the discharge plan, along with the patient himself. HOSPITAL COURSE: As above. DISCHARGE MEDICATIONS: Please see below. ALLERGIES: Please see below. PHYSICAL EXAMINATION: VITAL SIGNS: Please see below. GENERAL: No distress HEENT: Normocephalic, atraumatic, moist mucous membranes NECK: Supple CARDIOVASCULAR EXAMINATION: S1, S2, no murmurs RESPIRATORY EXAMINATION: Clear to auscultation, no wheezing ABDOMINAL EXAMINATION: Soft, nontender, nondistended, positive bowel sounds EXTREMITIES: Range of motion intact SKIN: No rash NEUROLOGICAL EXAMINATION: Alert and oriented 3, no focal deficits PSYCHIATRIC EXAMINATION: Calm and cooperative LABORATORY DATA: Please see below. PROGNOSIS: Guarded ACTIVITY: As tolerated. DIET: Renal DISCHARGE PLAN: Patient has follow-up with tour leader on Tuesday and PCP in 1-2 weeks DISPOSITION: Home. DISCHARGE INSTRUCTIONS: 1. As above. DISCHARGE CONDITION: Stable. TIME SPENT ON DISCHARGE: Greater than 38 minutes. Vital Signs/I&Os Vital Signs Date Time Temp Pulse Resp B/P (MAP) Pulse Ox O2 Delivery O2 Flow Rate FiO2 03/01/19 08:13 98.4 68 18 116/67 (83) 97 Room Air I&O- Last 24 Hours up to 6 AM 03/01/19 05:59 Intake Total 3310 ml Output Total 3025 ml Balance 285 ml Laboratory Data Labs 24H Laboratory Tests 2 02/28/19 16:08: Anion Gap 11, Glomerular Filtration Rate 10.8L, Calcium Level 6.5L, Phosphorus Level 4.9#, Albumin 2.6L 03/01/19 05:04: Anion Gap 8, Glomerular Filtration Rate 11.4L, Calcium Level 7.5#L, Phosphorus Level 4.9, Nucleated Red Blood Cells % (auto) 0.0, Magnesium Level 2.0 CBC/BMP Laboratory Tests 02/28/19 16:08 03/01/19 05:04 Discharge Medications Scheduled Calcium Carbonate (Oyster Shell Calcium) 500 Mg Tablet, 1,000 MG PO TID Magnesium Oxide (Magnesium) 250 Mg Tablet, 250 MG PO QHS, (Reported) Sodium Bicarbonate (Sodium Bicarbonate) 650 Mg Tablet, 650 MG PO BID for indigestion Tamsulosin Hcl (Tamsulosin HCl) 0.4 Mg Capsule, 0.4 MG PO QHS, (Reported) Vitamin D (Vitamin D3) 1,000 Unit Tablet, 4,000 UNITS PO DAILY Allergies Coded Allergies: No Known Allergies (Unverified , 07/27/18) JOYCE BROWN MD Mar 01, 2019 12:12
== END 2019-03-01 12:20 | disposition home or self-care (01) | DRG 641 ==
LOC: M ED 17:32 → M ED INP 20:51 → M PCU 22:10 → M ICU 02-27
PROVIDERS: ADMIT Internal Medicine; ATTEND Internal Medicine
DX: E83.51 Hypocalcemia (principal); N17.9 Acute kidney failure, unspecified; N18.5 Chronic kidney disease, stage 5; C25.9 Malignant neoplasm of pancreas, unspecified; C78.01 Secondary malignant neoplasm of right lung; C78.02 Secondary malignant neoplasm of left lung; E87.2 Acidosis; D63.1 Anemia in chronic kidney disease; E87.6 Hypokalemia; F17.210 Nicotine dependence, cigarettes, uncomplicated; E83.42 Hypomagnesemia; Z79.899 Other long term (current) drug therapy

== ENCOUNTER → 2019-11-05 | Outpatient (REF) | payer MEDICARE ==
[~2019-11-05] MED LIST changes: +CALCI50TA PO; +CHOL100029 PO; +FISH1000 PO; +GNP250TA9 PO; -LORA0.5T11 PO; +LORA0.5T5 PO; +OYST500T8 PO; +SODI650T PO; -SODIUM CHLORIDE 0.9% INJ 10 ML SYR IV SCH
[2019-11-05 17:06] LABS: CALCIUM LEVEL 7.5 MG/DL (8.8-10.2); CREATININE FOR GFR 4.98 MG/DL (0.70-1.30); GLOMERULAR FILTRATION RATE 12.1 (>42); PHOSPHORUS LEVEL 3.7 MG/DL (2.5-4.9); POTASSIUM SERUM 4.3 MEQ/L (3.5-5.1)
== END ==
LOC: M LAB REF 15:28
PROVIDERS: ATTEND Internal Medicine Nephrology
DX: N18.5 Chronic kidney disease, stage 5 (principal); E87.2 Acidosis; E55.9 Vitamin D deficiency, unspecified

== ENCOUNTER → 2019-12-03 | Outpatient (CLI) | payer MEDICARE ==
--- NOTE | 2020-01-22 09:16 | REP ---
CT OF THE CHEST WITHOUT IV CONTRAST: Delay in reporting results from hospital computer malfunction from [employer] [facility] [employer]. COMPARISON: Chest CT from 04/07/18 and images of the lower chest included on a CT of the abdomen dated 11/24/18. HISTORY: Patient has known pancreatic carcinoma. FINDINGS: There is a cavitary right upper lobe mass measuring 2.4 cm. This measured 3.0 cm on 04/07/18. There is a cavitary mass posteriorly in the right upper lobe measuring 3.6 cm. This measured 3.6 cm on 04/07/18. There is a 2.9 cm mass in the right lower lobe. This measured 2.6 cm on 04/07/18. There is a right upper lobe cavitary mass measuring 3.1 cm. This measured 3.0 cm on 04/07/18. There is a cavitary mass in the superior segment of the left lower lobe measuring 3.4 cm. This measured 2.4 cm on 04/07/18. There is a cavitary mass in the left lower lobe measuring 3.8 cm. This measured 3.8 cm on . There are no other lung masses or nodules. There is a small left pleural effusion, not present previously. There are 2 focal zones of linear stranding extending from the pleura into the parenchyma of the left lower lobe. These are slightly more thickened today than on 04/07/18. There is a curvilinear scar in the right lower lobe inferior to the right lower lobe mass, unchanged. There are no new nodules or masses. There are no infiltrates. There is no mediastinal lymph node enlargement. There is calcification in the precarinal area and a calcification in the left hilus, likely calcified granulomas. These are unchanged. There is a right IJ central venous catheter with the tip in the superior vena cava in satisfactory location. The thoracic aorta is unremarkable. Cardiac size is normal. There is no pericardial effusion. In the upper abdomen, there is pneumobilia. This is unchanged. There are surgical clips in the region of the pancreatic head. This is unchanged. There is a mass-like density in the region of the pancreatic head adjacent to the surgical clips, unchanged. Patient reportedly has had a Whipple procedure. There is no adrenal mass. No hepatic hypodensities are identified. The spleen appears normal size. IMPRESSION: There are multiple bilateral lung cavitary masses not significantly changed. There is a new left pleural effusion. There are no new lung nodules or masses. No lymph node enlargement. There are calcified granulomas in the mediastinum and left hilus, unchanged. Post surgical changes and pneumobilia are again identified in the upper abdomen. There are no lytic, blastic or destructive skeletal changes. There is multilevel degenerative disc disease throughout the thoracic spine. This is unchanged. MTDD
== END ==
LOC: M RAD 08:30
PROVIDERS: ATTEND Internal Medicine Hematology & Oncology
DX: C25.9 Malignant neoplasm of pancreas, unspecified (principal)

== ENCOUNTER → 2019-12-07 | Outpatient (REF) | payer MEDICARE ==
[2020-01-09 10:30] LABS: BASO % 0.4 % (0.0-1.0); EOS # 0.4 10^3/uL (0.0-0.5); EOS % 4.7 % (0.0-3.0); HEMATOCRIT 31.4 % (42.0-52.0); HEMOGLOBIN 10.3 g/dl (13.5-17.5); LYMPH # 0.9 10^3/uL (1.5-5.0); LYMPH % 11.7 % (24.0-44.0); MEAN CORPUSCULAR HEMOGLOBIN 30.9 pg (27.0-33.0); MEAN CORPUSCULAR HGB CONC 32.8 g/dl (32.0-36.5); MEAN CORPUSCULAR VOLUME 94.3 fl (80.0-96.0); MONO # 0.5 10^3/uL (0.0-0.8); MONO % 6.1 % (0.0-5.0); NEUTROPHILS # 6.1 10^3/uL (1.5-8.5); NEUTROPHILS % 76.6 % (36.0-66.0); PLATELET COUNT, AUTOMATED 150 10^3/uL (150-450); RED BLOOD COUNT 3.33 10^6/uL (4.30-6.10); WHITE BLOOD COUNT 7.9 10^3/uL (4.0-10.0)
[2020-02-22 07:46] LABS: CALCIUM LEVEL 6.5 MG/DL (8.8-10.2); CREATININE FOR GFR 6.01 MG/DL (0.70-1.30); GLOMERULAR FILTRATION RATE 9.7 (>42); PHOSPHORUS LEVEL 4.3 MG/DL (2.5-4.9)
== END ==
LOC: M LAB REF 13:37
DX: N18.5 Chronic kidney disease, stage 5 (principal)

== ENCOUNTER → 2020-02-07 | Outpatient (REF) | payer MEDICARE ==
[2020-02-07 15:34] LABS: BASO % 0.4 % (0.0-1.0); EOS # 0.3 10^3/uL (0.0-0.5); EOS % 3.7 % (0.0-3.0); HEMATOCRIT 31.5 % (42.0-52.0); LYMPH # 0.7 10^3/uL (1.5-5.0); LYMPH % 8.8 % (24.0-44.0); MEAN CORPUSCULAR HEMOGLOBIN 29.9 pg (27.0-33.0); MEAN CORPUSCULAR HGB CONC 31.7 g/dl (32.0-36.5); MONO # 0.4 10^3/uL (0.0-0.8); MONO % 5.1 % (0.0-5.0); NEUTROPHILS # 6.4 10^3/uL (1.5-8.5); NEUTROPHILS % 81.5 % (36.0-66.0); PLATELET COUNT, AUTOMATED 167 10^3/uL (150-450); RED BLOOD COUNT 3.35 10^6/uL (4.30-6.10); WHITE BLOOD COUNT 7.8 10^3/uL (4.0-10.0)
[2020-02-07 16:02] LABS: ALBUMIN 2.9 GM/DL (3.2-5.2); CALCIUM LEVEL 6.7 MG/DL (8.8-10.2); CREATININE FOR GFR 5.7 MG/DL (0.70-1.30); GLOMERULAR FILTRATION RATE 10.4 (>42); PHOSPHORUS LEVEL 3.6 MG/DL (2.5-4.9)
[2020-02-07 16:11] LABS: PTH INTACT 1135.2 PG/ML (18.5-88.0)
== END ==
LOC: M LAB REF 15:27
PROVIDERS: ATTEND Internal Medicine Critical Care Medicine
DX: N18.5 Chronic kidney disease, stage 5 (principal)

== ENCOUNTER → 2020-03-20 | Outpatient (CLI) | payer MEDICARE ==
[~2020-03-20] MED LIST changes: +GASTROGRAFIN SOLUTION 30ML (Q9963) As Ordered ONE
--- NOTE | 2020-03-20 17:38 | REP ---
INDICATION: PANCREATIC CA. COMPARISON: 12/03/2019. TECHNIQUE: CT chest performed without the use of intravenous contrast. Sagittal and coronal reconstruction images are performed. FINDINGS: Lungs: A right upper lobe cavitary mass demonstrates irregular margins and appears essentially unchanged in size 3.4 x 3.2 cm. In the anterior right upper lobe another spiculated cavitating mass measures 2.4 cm in diameter also unchanged. In the posterior right lower lobe irregular mass measures about 2.8 x 2.1 cm, unchanged. A band of fibro atelectasis is seen in the right posterior costophrenic sulcus. The left parahilar cavitating mass is somewhat bilobed and is probably unchanged, but precise evaluation of size is limited due to adjacent pleural fluid and atelectasis. Other mass more posterior and inferior is again visualized and again size is probably unchanged but not optimally evaluated due to adjacent atelectasis and pleural fluid. Mediastinum: No gross adenopathy. Hilda: No gross adenopathy. Axilla: No gross adenopathy. Pleura: A large left pleural effusion has increased since the prior study. Heart: Not enlarged. Thoracic aorta: No aneurysm. . Visualized osseous structures: There are degenerative changes of the spine without compression deformity. There is a right MediPort catheter again noted with the tip in the superior vena cava. IMPRESSION: Bilateral lung masses appear essentially unchanged. Large left pleural effusion has increased in size since the prior exam. <Electronically signed by Garo Cabrera > 03/20/20 [id number]
--- NOTE | 2020-03-20 18:00 | REP ---
INDICATION: PANCREATIC CA COMPARISON: None. TECHNIQUE: CT Scan of the abdomen and pelvis was performed without intravenous contrast. Oral contrast was administered. Sagittal and coronal reconstruction images performed. FINDINGS: Liver: Pneumobilia is again noted. Otherwise the liver is grossly unchanged. Gallbladder: There has been a prior cholecystectomy. Spleen: Grossly unremarkable.. Adrenals: Normal. Pancreas: Postsurgical changes are again seen in the pancreatic head. No gross change compared to prior study but evaluation is limited without IV contrast. The more distal pancreas demonstrates atrophic change with scattered tiny calcifications. Kidneys: There is bilateral renal atrophy, more so on the right. There is no hydronephrosis. Small and large bowel: Grossly unremarkable.. Tiny midline ventral hernia in the mid abdomen contains a loop of nonobstructed bowel. Free fluid: None. Abdominal aorta: No aneurysm. Adenopathy: None. Appendix: Not inflamed. Osseous structures: There are degenerative changes of the spine without compression deformity. Pelvis: No mass. No bladder calculus seen. There are small bilateral inguinal hernias containing noninflamed fat. Enlarged prostate is again noted unchanged. IMPRESSION: Post surgical changes are grossly stable. No acute changes. <Electronically signed by Garo Cabrera > 03/20/20 [id number]
== END ==
LOC: M RAD 15:17
PROVIDERS: ATTEND Internal Medicine Hematology & Oncology
DX: R91.8 Other nonspecific abnormal finding of lung field (principal); J90 Pleural effusion, not elsewhere classified; C25.9 Malignant neoplasm of pancreas, unspecified; C78.7 Secondary malignant neoplasm of liver and intrahepatic bile duct
CPT/HCPCS: 71250; 74176; Q9963

== ENCOUNTER → 2020-05-12 | Outpatient (REF) | payer MEDICARE ==
[~2020-05-12] MED LIST changes: -GASTROGRAFIN SOLUTION 30ML (Q9963) As Ordered ONE
[2020-05-12 19:00] LABS: HEPATITIS B CORE ANTIBODY IGM NEGATIVE (NEGATIVE); HEPATITIS B SURFACE ANTIBODY NEGATIVE (POSITIVE); HEPATITIS B SURFACE ANTIGEN NEGATIVE (NEGATIVE); HEPATITIS C VIRUS ABY INDEX < 0.0 INDEX (<0.8)
== END ==
LOC: M LAB REF 17:20
PROVIDERS: ATTEND Internal Medicine Nephrology
DX: N18.6 End stage renal disease (principal)

== ENCOUNTER 2020-05-27 14:34 | Inpatient (IN) | payer MEDICARE ==
[2020-05-27] VITALS (10 sets, daily range): BP systolic 101–127; BP diastolic 55–79
[~2020-05-27] VITALS: Ht 182.9 cm; Wt 77.4 kg
[2020-05-27] MEDS: NICOTINE 14 MG/24 HR TRANSDERMAL TD SCH (09:00)
[~2020-05-27 14:34] MED LIST changes: -ISOVUE-300 61% 50ML VIAL As Ordered ONE; -LIDOCAINE 1% MDV 20ML VIAL As Ordered ONE; -LIDOCAINE W/EPINEPHRINE 1% 20ML VIAL As Ordered ONE; -MIDAZOLAM INJ 2MG/2ML VIAL (J2250 PER 1MG) As Ordered ONE; -ceFAZolin 2 GM/D5W 50 ML IV BAG (J0690 PER 500MG) As Ordered ONE; -fentaNYL 100 MCG/2 ML INJECTION (J3010) As Ordered ONE; -hydrALAZINE 20MG/ML 1ML VIAL (J0360 PER 20MG) As Ordered ONE
--- NOTE | 2020-05-27 15:28 | REP ---
INDICATION: ASSESS CHEST TUBE. COMPARISON: Post biopsy chest radiograph 04/14/2020. TECHNIQUE: PA and lateral views FINDINGS: There is a moderate left-sided pleural effusion. A left-sided thoracotomy tube is present the tip of which is in the left mid lung zone. The right-sided MediPort device tip remains in the superior vena cava. There is extensive subcutaneous emphysema to such a marked degree at limits evaluation of the lung iglesias using plain radiography. Persistent right lung opacities are again noted. There is evidence of a left-sided pneumothorax but difficult to assess due to the marked subcutaneous emphysema. There is no change in the osseous structures. Impression 1. Extensive and marked subcutaneous emphysema has developed since the last exam. This is concerning for a pneumothorax although difficult to evaluate due to the marked subcutaneous emphysema I suspect there is a left-sided pneumothorax. 2. Left-sided thoracotomy tube in place, however, left pleural effusion persists as does suspected pneumothorax. 3. Other findings as described above. 4. CT examination of the chest is recommended IMPRESSION: There is no acute cardiopulmonary disease. <Electronically signed by Clint Ortega > 05/27/20 1522
[2020-05-27] MEDS ORDERED: D5W/0.9% SODIUM CHLORIDE 1,000 ML IV SCH (16:42)
[2020-05-27] MEDS ORDERED: LEVALBUTEROL 1.25 MG/0.5 ML CONCENTRATE NEB NEB PRN (16:45)
[2020-05-27] MEDS ORDERED: PERCOCET 5MG/325MG TAB PO PRN (16:45)
[2020-05-27] MEDS ORDERED: flumazeniL 0.5 MG/5 ML VIAL As Ordered ONE (17:09)
[2020-05-27] MEDS ORDERED: MIDAZOLAM INJ 2MG/2ML VIAL (J2250 PER 1MG) As Ordered ONE (17:09)
[2020-05-27] MEDS ORDERED: LIDOCAINE 1% MDV 20ML VIAL As Ordered ONE (17:10)
[2020-05-27 17:35] LABS: INR 1.11; PROTHROMBIN TIME 14.5 SECONDS (12.5-14.3)
[2020-05-27 17:36] LABS: BASO % 0.4 % (0.0-1.0); EOS # 0.3 10^3/uL (0.0-0.5); EOS % 2.8 % (0.0-3.0); HEMATOCRIT 35.4 % (42.0-52.0); HEMOGLOBIN 11.3 g/dl (13.5-17.5); LYMPH % 9.6 % (24.0-44.0); MEAN CORPUSCULAR HEMOGLOBIN 29.4 pg (27.0-33.0); MEAN CORPUSCULAR HGB CONC 31.9 g/dl (32.0-36.5); MEAN CORPUSCULAR VOLUME 92.2 fl (80.0-96.0); MONO # 0.6 10^3/uL (0.0-0.8); MONO % 5.5 % (0.0-5.0); NEUTROPHILS # 8.5 10^3/uL (1.5-8.5); NEUTROPHILS % 80.5 % (36.0-66.0); PLATELET COUNT, AUTOMATED 184 10^3/uL (150-450); RED BLOOD COUNT 3.84 10^6/uL (4.30-6.10); WHITE BLOOD COUNT 10.6 10^3/uL (4.0-10.0)
[2020-05-27 17:36] LABS: PARTIAL THROMBOPLASTIN TIME 48.9 SECONDS (24.2-38.5)
[2020-05-27 17:39] LABS: CALCIUM LEVEL 8.8 MG/DL (8.8-10.2); CREATININE FOR GFR 6.1 MG/DL (0.70-1.30); GLOMERULAR FILTRATION RATE 9.6 (>42); POTASSIUM SERUM 3.4 MEQ/L (3.5-5.1)
[2020-05-27] MEDS ORDERED: KCL 10MEQ/100ML SWI (KRUN) 10 MEQ in IV 1 EA IV ONE (17:45)
--- NOTE | 2020-05-27 17:48 | HPEPDOC ---
[facility] Medical History & Physical Date of Admission May 27, 2020 Date of Service: May 27, 2020 Attending Physician: Viktoriya Louie MD History and Physical CHIEF COMPLAINT: left pneumothorax HISTORY OF PRESENT ILLNESS: Patient is a 75-year-old male with past mental history of hypertension, anemia, CKD stage 5/end-stage renal disease, pancreatic cancer with metastasis to lung, left-sided pleural effusion status post Pleurx cath placement 05/09/2020 who presented to interventional radiology today for an elective outpatient permacath placement. On 05/26/2020 the patient was noted to have a thrombosed left arm fistula and hemodialysis was not able to be performed. He was scheduled for permacath placement today electively through interventional radiology. The patient was noted to have diffuse crepitus of the upper bilateral chest extending to the shoulders, chest x-ray showed marked subcutaneous emphysema concerning for left-sided pneumothorax. The patient had multiple complications during the procedure including bigeminy, trigeminy, bradycardia with heart rate as low as 38, blood pressure went as high as 230 mmHg systolic. Was given 10 mg of IV hydralazine. Dr. Asif with cardiothoracic surgery was consult it while the patient was still in interventional radiology and decision was made to admit to the hospital floor for left side chest tube placement. Dr. Parker with nephrology was also consulted. Cardiology, Dr. Sy, was curb sided and discussed the abnormal rhythms. Decision was made to monitor on telemetry. When the patient was assessed the patient had no complaints and was asymptomatic during the events that took place. He denied chest pain, ears, chills, nausea, v omiting, abdominal pain. He admits to occasional shortness of breath at baseline but he does denies increased shortness of breath currently. Admitting diagnosis of the left-sided pneumothorax requiring left-side chest tube placement, bigeminy/trigeminy, CKD Stage IV requiring hemodialysis. REVIEW OF SYSTEMS: Neg except mentioned above PAST MEDICAL HISTORY: HTN Vitamin D deficiency BPH Anemia Pancreatic cancer (managed with [facility] in 2000 and chemotherapy) with metastasis in the lung CKD 5/ESRD secondary to chemotherapy History of Hydropneumothorax SURGICAL HISTORY: PleurX cath placement 05/09/20 at [facility] Permacath placement 05/27/20 SOCIAL HISTORY: Smokes tobacco products actively, denies alcohol or drug use. Lives with locally. Follows with [facility] for heme/onc, Dr. Parker nephrology. Full Code. FAMILY HISTORY: Asthma ALLERGIES: Please see below. HOME MEDICATIONS: Please see below. PHYSICAL EXAMINATION: VITAL SIGNS: Please see below. GENERAL APPEARANCE: Well-developed, not in apparent distress, resting in bed HEENT: Normocephalic, atraumatic, mucous membranes moist CARDIOVASCULAR: bigeminy/trigeminy, Regular rate . No murmurs, rubs or gallops LUNGS: Crepitus in bilateral upper chest wall, otherwise CTAB. CHEST: left chest permacath placement ABDOMEN: Bowel are hypoactive. Abdomen is soft and nontender on palpation MUSCULOSKELETAL: Range of motion intact in all 4 extremities INTEGUMENTARY: Intact, incisions appear clean from permacath NEUROLOGICAL: CN 2-12 intact, no focal deficits PSYCHIATRIC: Alert and oriented person, place and time, able to understand and follow commands LABORATORY DATA: See below. IMAGING: CXR: 1. Extensive and marked subcutaneous emphysema has developed since the last exam. This is concerning for a pneumothorax although difficult to evaluate due to the marked subcutaneous emphysema I suspect there is a left-sided pneumothorax. 2. Left-sided thoracotomy tube in place, however, left pleural effusion persists as does suspected pneumothorax. 3. Other findings as described above. 4. CT examination of the chest is recommended ASSESSMENT: 75-year-old male with past mental history of hypertension, anemia, CKD stage 5/end-stage renal disease, pancreatic cancer with metastasis to lung, left-sided pleural effusion status post Pleurx cath placement 05/09/2020 admitted for left-sided pneumothorax requiring left-side chest tube placement, bigeminy/trigeminy, CKD Stage IV requiring hemodialysis. PLAN: Left side pneumothorax -S/p left PleurX cath placement 05/09/20 -Diffuse crepitus in b/l upper chest, increased SOB per patient has been present over several weeks. -CXR above -CT surgery (Dr. Asif) consulted and to place chest tube today, f/u recommendations, pain regimen -Monitor on tele Bigeminy/Trigeminy arrhythmia -K low, replaced with small amount KCl per nephrology -F/u magnesium -Discussed with Dr. Sy (diamond powder mixer cardiology), decision was made to f/u lytes, replace PRN. Patient is asymptomatic, manage conservatively -ECG shows Sinus rhythm with PVCs, HR 67 -Monitor on tele. Hypokalemia, acute -K 3.4 -Given 1 K run today -F/u K in AM Hypotension -One episode of HTN in IR , given hydralazine 10 mg x 1 IV -Hx of hypotension and BP lower currently -C/w home midodrine TID Left side pleural effusion likely malignant -PleurX cath placed, drains regularly but little out per nursing -F/u CT surgery recommendations Metabolic acidosis hx -Currently acidosis is controlled -C/w home sodium bicarb dose CKD Stage 5/ESRD on HD MWF -Cr 6 -Thrombosed left arm fistula on 05/26/20 and could not receive HD -Permacath now placed left upper chest -Dr. Parker (nephrology) consulted. -Renal diet Anemia of chronic disease -F/u nephro recommendations BPH -Tamsulosin Pancreatic cancer with mets to the lung -F/u with oncology o/p Tobacco abuse -Nicotine patch -Plan: Smoking cessation education GI px -PPI DVT prophylaxis -Heparin sc DISPOSITION: Admitted to PCU with Nephrology, CT surgery consulted to follow. Plan is hopefully home at discharge. Laboratory Data Labs 24H Laboratory Tests 2 05/27/20 15:30: Prothrombin Time 14.5H, Prothromb Time International Ratio 1.11, Activated Partial Thromboplast Time 48.9H 05/27/20 16:42: Immature Granulocyte % (Auto) 1.2, Neutrophils (%) (Auto) 80.5H, Lymphocytes (%) (Auto) 9.6L, Monocytes (%) (Auto) 5.5H, Eosinophils (%) (Auto) 2.8, Basophils (%) (Auto) 0.4, Neutrophils # (Auto) 8.5, Lymphocytes # (Auto) 1.0L, Monocytes # (Auto) 0.6, Eosinophils # (Auto) 0.3, Basophils # (Auto) 0.0, Nucleated Red Blood Cells % (auto) 0.0, Anion Gap 9, Glomerular Filtration Rate 9.6L, Calcium Level 8.8 CBC/BMP Laboratory Tests 05/27/20 16:42 Home Medications Scheduled Magnesium Oxide (Magnesium) 250 Mg Tablet, 250 MG PO QHS [place]-3 Fatty Acids/Fish Oil (Fish Oil 1,000 mg Capsule) 1 Each Capsule, 4 CAP PO DAILY Sodium Bicarbonate (Sodium Bicarbonate) 650 Mg Tablet, 650 MG PO BID for indigestion Tamsulosin Hcl (Tamsulosin HCl) 0.4 Mg Capsule, 0.4 MG PO QHS Vitamin D (Vitamin D3) 1,000 Unit Tablet, 4,000 UNITS PO DAILY Allergies Coded Allergies: No Known Allergies (Unverified , 07/27/18) A-FIB/CHADSVASC A-FIB History Current/History of A-Fib/PAF?: No Current PO Anticoag Therapy: No Age/Risk Factor Scoring CHADSVASC: CHADSVASC Response (Comments) Value Age Risk Factor Age >/= 75 years old 2 Gender Risk Factor Male 0 Hx of CHF No 0 Hx of HTN No 0 Hx of Stroke/TIA/or VTE No 0 Hx of Diabetes No 0 Hx of Vascular Disease No 0 Total 2 Treatment Treatment ordered: Other Other anticoagulant ordered: heparin Viktoriya Louie MD May 27, 2020 17:48
[2020-05-27 18:11] LABS: TROPONIN I 0.04 NG/ML (< 0.10)
[2020-05-27 18:20] LABS: ABG BASE EXCESS -3.2 (-2.0-2.0); ABG HCO3 19.2 MEQ/L (22.0-26.0); ABG O2 SATURATION 98.7 % (95.0-99.0); ABG STANDARD HCO3 21.8 MEQ/L (22.0-26.0); ABG pH (ARTERIAL) 7.469 UNITS (7.350-7.450)
[2020-05-27] MEDS ORDERED: MIDAZOLAM INJ 2MG/2ML VIAL (J2250 PER 1MG) IV STA ×2 (18:32→18:34)
--- NOTE | 2020-05-27 19:18 | REP ---
INDICATION: s/p CT. COMPARISON: Earlier today TECHNIQUE: Portable FINDINGS: The technique utilized in obtaining the radiograph has magnified the cardiac silhouette and accentuated the interstitial markings. An additional left-sided thoracotomy tube has been placed. The pneumothorax suspected has been reduced compared to the prior exam. A moderate pneumothorax persists. Once again, marked subcutaneous emphysema is again noted unchanged. The cardiomediastinal silhouette is within normal limits. The heart is not enlarged. The right lung is stable. The right-sided central venous catheter is again seen with its tip in the superior vena cava. A left-sided central venous catheter has been placed since the last exam the tip of which is in the left brachiocephalic vein/superior vena cava junction, horizontally. IMPRESSION: Improved left pneumothorax and other findings as described above. <Electronically signed by Clint Ortega > 05/27/201913
[2020-05-27] MEDS: LEVALBUTEROL 1.25 MG/0.5 ML CONCENTRATE NEB NEB SCH (20:00)
[2020-05-27] MEDS: DOCUSATE SODIUM 100MG CAPSULE PO SCH (20:08)
[2020-05-27] MEDS: HEPARIN SOD (PORCINE) 5000UNITS/ML 1ML VIAL/SYRINGE SC SCH (20:09)
[2020-05-27] MEDS: SODIUM BICARBONATE 325 MG TAB PO SCH (20:09)
[2020-05-27 21:52] LABS: MAGNESIUM LEVEL 1.9 MG/DL (1.8-2.4); TROPONIN I 0.08 NG/ML (< 0.10)
[2020-05-27] MEDS: NORCO, ANEXSIA 5/325MG TABLET (HYDROcodone/ACETAMINOPHEN) PO PRN (22:32)
[2020-05-27] MEDS: MORPHINE 4 MG/ML 1ML VIAL/SYRINGE (J2270) IV PRN (23:50)
[2020-05-28] VITALS: BP 98/61
[2020-05-28] MEDS: LEVALBUTEROL 1.25 MG/0.5 ML CONCENTRATE NEB NEB SCH ×4 (01:27→20:20)
[2020-05-28 04:00] VITALS: BP 114/66
[2020-05-28 05:30] LABS: ABG BASE EXCESS 0.3 (-2.0-2.0); ABG HCO3 24.4 MEQ/L (22.0-26.0); ABG O2 SATURATION 95.6 % (95.0-99.0); ABG PARTIAL PRESSURE CO2 37.2 mmHg (35.0-45.0); ABG PARTIAL PRESSURE O2 77.8 mmHg (75.0-100.0); ABG STANDARD HCO3 24.7 MEQ/L (22.0-26.0); ABG TOTAL CO2 25.5 MEQ/L (23.0-31.0); ABG pH (ARTERIAL) 7.434 UNITS (7.350-7.450)
[2020-05-28] MEDS: PERCOCET 5MG/325MG TAB PO PRN ×3 (06:26→20:31)
[2020-05-28 07:07] LABS: BASO # 0.1 10^3/uL (0.0-0.2); BASO % 0.5 % (0.0-1.0); EOS # 0.3 10^3/uL (0.0-0.5); EOS % 2.9 % (0.0-3.0); HEMATOCRIT 34.1 % (42.0-52.0); HEMOGLOBIN 10.4 g/dl (13.5-17.5); LYMPH # 0.7 10^3/uL (1.5-5.0); LYMPH % 7.2 % (24.0-44.0); MEAN CORPUSCULAR HEMOGLOBIN 28.9 pg (27.0-33.0); MEAN CORPUSCULAR HGB CONC 30.5 g/dl (32.0-36.5); MEAN CORPUSCULAR VOLUME 94.7 fl (80.0-96.0); MONO # 0.6 10^3/uL (0.0-0.8); MONO % 6.6 % (0.0-5.0); NEUTROPHILS # 7.8 10^3/uL (1.5-8.5); NEUTROPHILS % 81.9 % (36.0-66.0); PLATELET COUNT, AUTOMATED 158 10^3/uL (150-450); WHITE BLOOD COUNT 9.6 10^3/uL (4.0-10.0)
[2020-05-28 07:55] VITALS: BP 123/68
[2020-05-28] MEDS: MIDODRINE 5 MG TAB PO SCH ×3 (08:07→16:54)
[2020-05-28] MEDS: TAMSULOSIN 0.4 MG CAP PO SCH (08:07)
[2020-05-28] MEDS: DOCUSATE SODIUM 100MG CAPSULE PO SCH ×2 (08:07→20:30)
[2020-05-28] MEDS: PANTOPRAZOLE 40MG TAB (PROTONIX) PO SCH (08:07)
[2020-05-28] MEDS: HEPARIN SOD (PORCINE) 5000UNITS/ML 1ML VIAL/SYRINGE SC SCH ×2 (08:07→20:30)
[2020-05-28] MEDS: MOM 30ML SUSPENSION UDC PO SCH ×2 (08:07→09:00)
[2020-05-28 08:14] LABS: CALCIUM LEVEL 7.6 MG/DL (8.8-10.2); CREATININE FOR GFR 6.25 MG/DL (0.70-1.30); GLOMERULAR FILTRATION RATE 9.3 (>42); POTASSIUM SERUM 3.2 MEQ/L (3.5-5.1)
[2020-05-28] MEDS ORDERED: POTASSIUM CHLORIDE 10 MEQ SR TABLET PO ONE (08:30)
[2020-05-28] MEDS: SODIUM BICARBONATE 325 MG TAB PO SCH (08:40)
--- NOTE | 2020-05-28 08:55 | REP ---
INDICATION: pneumthx COMPARISON: 05/27/2020 TECHNIQUE: PA and lateral. FINDINGS: Marked diffuse subcutaneous emphysema noted throughout the examination. Left hydropneumothorax and left-sided airspace disease suggested. Subtle right-sided airspace disease similar to prior examination. Mediastinum and cardiac silhouette are stable. Double-lumen central line with tip in the SVC remains stable. Efpvpi-I-Sshu with tip in the SVC remains stable. Left chest tube again noted. IMPRESSION: Marked diffuse subcutaneous emphysema similar to prior. Left hydropneumothorax. Underlying bilateral airspace disease. <Electronically signed by David Green > 05/28/20 0802
[2020-05-28] MEDS: NICOTINE 14 MG/24 HR TRANSDERMAL TD SCH (09:00)
--- NOTE | 2020-05-28 09:31 | RO ---
OPERATIVE NOTE DATE OF OPERATION: 05/27/2020 PREPROCEDURE DIAGNOSES: 1. Pneumothorax. 2. Alveolopleural fistula. 3. Continuing air leak. POSTPROCEDURE DIAGNOSES: 1. Pneumothorax. 2. Alveolopleural fistula. 3. Continuing air leak. PROCEDURE: Insertion of a left lateral chest tube. SURGEON: Ricky Asif M.D. ENVIRONMENTAL FIELD PROFESSIONAL: ANESTHESIA: INDICATIONS FOR PROCEDURE: The patient had previously undergone a PleurX catheter placement at [facility]. The patient's family had been noting that the drainage has been less and less since insertion. Oncology obtained an x-ray, which showed a large pneumothorax with massive subcutaneous emphysema on both the right and left sides. The possibility exists that when the PleurX catheter was placed the lung was injured and has continued to leak. Placing the chest tube was rather problematic as the PleurX catheter had to be avoided and took an unusual course in that it came anterior then posterior and then back anteriorly. I am not sure of the strategy for the placement of the PleurX catheter. DESCRIPTION OF PROCEDURE: Under satisfactory moderate sedation eventually achieved with 4 mg of Versed, the patient was prepped and draped in the usual sterile fashion. After carefully marking the incision site and noting the course of the PleurX catheter, an incision was made in the approximate sixth intercostal space in the anterior axillary line. A tunnel was created in the chest with a gush of air. A #24 chest tube was placed and aimed postoperatively, as he had both air and fluid. The chest tube was secured to the chest wall with a #2 Tevdek suture and attached to the Pleur-Evac, which was placed at -40 cm suction. The patient tolerated the procedure well and a chest x-ray is pending.
[2020-05-28 12:00] VITALS: BP 122/60
--- NOTE | 2020-05-28 12:53 | IPN ---
PROGRESS NOTE DATE: 05/28/2020 Mr. Acosta is sitting comfortably in a chair. He has a very large air leak through the new chest tube. His vital signs show a maximum temperature of 97.1 with a heart rate that ranges between 68-77 in a sinus rhythm, respiratory rate of 18-21 without the use of accessory muscles, who is 95%-97% saturated on room air and whose blood pressure is ranging between 123/68 to 98/61. His intake and output for the past 24 hours has been recorded as 600 in and 800 with 800 mL out of the chest tube and 360 mL in the last 12 hours. His weight today is 77.9 kg. PHYSICAL EXAMINATION: His lungs show markedly decreased breath sounds on the right side, but they are certainly improved over yesterday. Percussion note is full to the diaphragm. He has subcutaneous emphysema over the left and right lateral chest with the left greater than right. Cardiac exam is without murmurs, clicks, gallops, or rubs. I cannot feel his point of maximal impulse (PMI). S1 and S2 are normal. Abdomen is soft and nontender but slightly tympanitic. Bowel sounds are positive. Extremities show 1+ pretibial edema, no calf tenderness, no differential swelling of the upper extremities. Skin is warm, dry, and perfused without cyanosis or mottling, including that of the nailbeds and knees. Neck is supple. There is no jugular venous distention. There is some subcutaneous emphysema at the very base of the neck. Trachea is midline. Mouth shows the mucous membranes to be pink and moist. Lips and commissures without lesions. No thrush. Eyes show his pupils to be equal and reactive. Extraocular motion intact. Sclerae anicteric. Neurologic shows II-XII intact. Normal gross motor, gross sensation intact. Gait is not tested. Psychiatric shows him to be awake, alert, and oriented times three with appropriate mood and affect and conversational, much more cooperative today. DIAGNOSTIC STUDIES: His white count today is 9.6 with a hemoglobin and hematocrit of 10.4 and 34.1, slightly down from yesterday at 11.3 and 35.4. Platelet count is 158 and stable. differential shows 81% neutrophils, 7% lymphocytes, 6% monocytes. There are no immature forms or toxic granulations. His chemistries today show potassium 3.2 with a sodium 142. BUN and creatinine are 52 and 6.25. He is awaiting dialysis. Glucose is 120 with a calcium 7.6. His chest x-ray today shows his lung much more expanded to the chest wall but not completely there. There is still a small air-fluid level on the lateral and PA films. There is subcutaneous emphysema over the left and right chest moreira with the left greater than the right. IMPRESSION: 1. Hydropneumothorax, relieved with a chest tube. 2. Possible lung entrapment. 3. Alveolar pleural fistula, continuing. 4. Metastatic pancreatic carcinoma to the lung. 5. Bigeminy. 6. Hypokalemia. 7. Chronic renal disease. 8. Tobacco abuse. PLAN AND DISCUSSION: I will increase his chest tube to -40 of suction to get his lung to the chest wall. If we can get the lung to the chest wall, his alveolar pleural fistula will probably stop. I will obtain a CT scan tomorrow, depending upon what the chest x-ray looks like. I noted in my consultation that the operation surgeon who placed the PleurX catheter cannot divorce himself from the subsequent complication; however, there is also a possibility that one of his metastatic lesions could have eroded the pleural surface and caused an air leak. It should be noted that his arterial blood gases today show a pH 7.43, pCO2 of 37, and pO2 of 77 on room air with a base excess of 0.3.
[2020-05-28 16:40] VITALS: BP 104/65
--- NOTE | 2020-05-28 17:25 | IPNPDOC ---
Date Seen The patient was seen on 05/28/20. Progress Note SUBJECTIVE: Left chest tube in place, repeat CXR this AM improved. Denies incr SOB, chest pain, n/v/d. OBJECTIVE: PHYSICAL EXAMINATION: VITAL SIGNS: Please see below. GENERAL APPEARANCE: Well-developed, not in apparent distress, resting in bed HEENT: Normocephalic, atraumatic, mucous membranes moist CARDIOVASCULAR: bigeminy/trigeminy, Regular rate . No murmurs, rubs or gallops LUNGS: Crepitus in bilateral upper chest wall, otherwise CTAB. CHEST: left chest permacath placement BACK: Left lower back chest tube in place with drainage to bedside cannister ABDOMEN: Bowel are hypoactive. Abdomen is soft and nontender on palpation MUSCULOSKELETAL: Range of motion intact in all 4 extremities INTEGUMENTARY: Intact, incisions appear clean NEUROLOGICAL: CN 2-12 intact, no focal deficits PSYCHIATRIC: Alert and oriented person, place and time, able to understand and follow commands LABORATORY DATA: See below ASSESSMENT: 75-year-old male with past mental history of hypertension, anemia, CKD stage 5/end-stage renal disease, pancreatic cancer with metastasis to lung, left-sided pleural effusion status post Pleurx cath placement 05/09/2020 admitted for left-sided pneumothorax requiring left-side chest tube placement, bigeminy/trigeminy, CKD Stage IV requiring hemodialysis. PLAN: Left side hydropneumothorax likely 2/2 to placement of left PleurX cath 05/09/20 -S/p left side chest tube placement -Concern for possible lung entrapment, alveolar pleural fistula -Improved CXR -Still diffuse crepitus in b/l upper chest, improved SOB on RA -CT surgery (Dr. Asif) following -F/u repeat CT in the AM -Monitor on tele Bigeminy/Trigeminy/nonsustained VT arrhythmia -Replaced potassium again this AM -Discussed with Dr. 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 Patient is asymptomatic, manage conservatively -replace lytes PRN -Monitor on tele. Hypokalemia, acute -Given 40 mEq Po today -F/u K in AM Hypotension, chronic -Stable and improving -C/w home midodrine TID Left side pleural effusion likely malignant -PleurX cath placed, drains regularly but little out per nursing -F/u CT surgery recommendations Metabolic acidosis hx -Currently acidosis is controlled -C/w home sodium bicarb dose CKD Stage 5/ESRD on HD MWF -Permacath now placed left upper chest -Dr. Parker (nephrology) consulted. -Renal diet -C/w HD regularly Anemia of chronic disease -F/u nephro recommendations BPH -Tamsulosin Pancreatic cancer with mets to the lung -F/u with oncology o/p Tobacco abuse -Nicotine patch -Plan: Smoking cessation education GI px -PPI DVT prophylaxis -Heparin sc DISPOSITION: Admitted to PCU with Nephrology, CT surgery consulted to follow. Plan is hopefully home at discharge. VS, I&O, 24H, Fishbone Vital Signs/I&O Vital Signs Date Time Temp Pulse Resp B/P (MAP) Pulse Ox O2 Delivery O2 Flow Rate FiO2 05/28/20 16:40 98.3 71 20 104/65 (78) 93 Room Air 05/27/20 20:00 I&O- Last 24 Hours up to 6 AM0 05/28/20 06:00 Intake Total 1050 ml Output Total 1160 ml Balance -110 ml Laboratory Data 24H LABS Laboratory Tests 2 05/27/20 17:59: Blood Gas Bicarbonate Standard 21.8L, Arterial Blood pH 7.469H, Arterial Blood Partial Pressure CO2 27.0L, Arterial Blood Partial Pressure O2 129.0H, Arterial Blood Total CO2 20.0L, Arterial Blood HCO3 19.2L, Arterial Blood Base Excess - 3.2L, Arterial Blood Oxygen Saturation 98.7 05/27/20 21:01: Magnesium Level 1.9, Troponin I 0.08# 05/28/20 00:33: Troponin I 0.06# 05/28/20 05:22: Blood Gas Bicarbonate Standard 24.7, Arterial Blood pH 7.434, Arterial Blood Partial Pressure CO2 37.2, Arterial Blood Partial Pressure O2 77.8, Arterial Blood Total CO2 25.5, Arterial Blood HCO3 24.4, Arterial Blood Base Excess 0.3, Arterial Blood Oxygen Saturation 95.6 05/28/20 07:04: Immature Granulocyte % (Auto) 0.9, Neutrophils (%) (Auto) 81.9H, Lymphocytes (%) (Auto) 7.2L, Monocytes (%) (Auto) 6.6H, Eosinophils (%) (Auto) 2.9, Basophils (%) (Auto) 0.5, Neutrophils # (Auto) 7.8, Lymphocytes # (Auto) 0.7L, Monocytes # (Auto) 0.6, Eosinophils # (Auto) 0.3, Basophils # (Auto) 0.1, Nucleated Red Blood Cells % (auto) 0.0, Anion Gap 14, Glomerular Filtration Rate 9.3L, Calcium Level 7.6L 05/28/20 09:30: Urine Color YELLOW, Urine Appearance HAZY, Urine pH 5.0, Urine Specific [place] 1.011, Urine Protein NEGATIVE, Urine Glucose (UA) NEGATIVE, Urine Ketones NEGATIVE, Urine Blood 1+H, Urine Nitrite NEGATIVE, Urine Bilirubin NEGATIVE, Urine Urobilinogen 0.2, Urine Leukocyte Esterase 1+H, Urine WBC (Auto) 12H, Urine RBC (Auto) 2, Urine Hyaline Casts (Auto) 0, Urine Bacteria (Auto) NEGATIVE, Urine Squamous Epithelial Cells 0, Urine Mucus (Auto) SMALL, Urine Sperm (Auto) CBC/BMP Laboratory Tests 05/28/20 07:04 Microbiology Microbiology 05/28/20 Urine Culture, Received Pending Current Medications Current Medications Medications (Trade) Dose Ordered Sig/Dejan Route PRN Reason Start Time Stop Time Status Last Admin Dose Admin Acetaminophen (Tylenol Tab) 650 mg Q6HP PRN PO T > 101.5 or FU 05/27/20 16:45 Acetaminophen/ Hydrocodone Bitart ([place], Anexsia 5/325) 1 tab Q3H PRN PO MILD PAIN (PS 1-4) 05/27/20 16:45 05/27/20 22:32 Bisacodyl (Dulcolax Suppository) 10 mg Q4HP PRN AL CONSTIPATION 05/27/20 16:45 Dextrose/Sodium Chloride 1,000 ml @ 75 mls/hr [id number] IV 05/27/20 16:42 05/28/20 07:55 DC 05/27/20 20:08 Docusate Sodium (Colace) 100 mg BID PO 05/27/20 21:00 05/28/20 08:07 Heparin Sodium (Porcine) (Heparin) 5,000 units Q12H SC 05/27/20 21:00 05/28/20 08:07 Levalbuterol HCl (Xopenex Neb) 1.25 mg Q2HP PRN NEB WHEEZING 05/27/20 16:45 Levalbuterol HCl (Xopenex Neb) 1.25 mg RQ6H NEB 05/27/20 20:00 05/28/20 07:37 Magnesium Hydroxide (Milk Of Magnesia) 30 ml DAILY PO 05/28/20 09:00 Midazolam HCl (Versed) 2 mg STAT STAT IV 05/27/20 18:32 05/27/20 19:51 DC Midazolam HCl (Versed) 2 mg STAT STAT IV 05/27/20 18:34 05/27/20 19:51 DC Midodrine (Proamatine) 5 mg 08,12,16 PO 05/28/20 08:00 05/28/20 16:54 Morphine Sulfate (Morphine Sulfate Inj) 3 mg Q3HP PRN IV SEVERE PAIN (PS 8-10) 05/27/20 23:30 05/27/20 23:50 Nicotine (Nicoderm Cq 14mg) 1 patch DAILY TD 05/27/20 09:00 Ondansetron HCl (ZOFRAN INJection) 4 mg Q4HP PRN IV NAUSEA 05/27/20 16:45 Oxycodone/ Acetaminophen (Percocet 5mg/ 325mg Tablet) 1 tab Q4H PRN PO MODERATE PAIN (PS 5-7) 05/27/20 16:45 05/27/20 20:09 Oxycodone/ Acetaminophen (Percocet 5mg/ 325mg Tablet) 2 tab Q4H PRN PO SEVERE PAIN (PS 8-10) 05/27/20 16:45 05/28/20 12:19 Pantoprazole Sodium (Protonix) 40 mg DAILY PO 05/28/20 09:00 05/28/20 08:07 Sodium Bicarbonate (Sodium Bicarbonate) 650 mg BID PO 05/27/20 21:00 05/28/20 08:40 Tamsulosin HCl (Flomax) 0.4 mg DAILY PO 05/28/20 09:00 05/28/20 08:07 Allergies Coded Allergies: No Known Allergies (Unverified , 07/27/18) Viktoriya Louie MD May 28, 2020 17:25
[2020-05-28 20:00] VITALS: BP 114/65
--- NOTE | 2020-05-28 21:25 | CR ---
NEPHROLOGY CONSULTATION DATE: 05/28/2020 REQUESTING PHYSICIAN: Viktoriya Louie M.D. HISTORY OF PRESENT ILLNESS: Mr. Acosta is a 75-year-old gentleman who was admitted to [facility] yesterday due to left pneumothorax. He has a known history of pancreatic cancer with metastasis to lungs. He recently started dialysis about 2 weeks ago via his left arm AV graft. He was volume overloaded and had edema on his left arm and fist which has improved. On the day of admission he was found to have a clotted AV graft and Vascular Surgery saw him. They tried to first look at his graft for possible thrombolitis, however the decision for a Permacath was made as the patient did not have enough records available for evaluation of his AV graft, and also there was not enough time for surgery. In any event, he was found to have a left sided pneumothorax and a Permacath was placed with some difficulty due to vascular obstructions. After the surgery he was admitted and underwent a left sided chest tube placement. Prior to this admission he was admitted to [facility] in April and had a left sided PleurX catheter placed due to a pleural effusion with distal air. He has a known history of bilateral pulmonary metastasis and is being followed by Oncology. He has not received chemotherapy for a while. PAST MEDICAL HISTORY: The patient's past medical history is significant for: 1. History of pancreatic cancer with metastasis to lungs. 2. Metastatic pleural effusion. 3. End-stage renal disease. 4. History of hydropneumothorax. 5. Anemia. 6. History of benign prostatic hypertrophy. 7. History of hypotension. 8. History of secondary hyperparathyroidism and vitamin D deficiency. PAST SURGICAL HISTORY: The patient's past surgical history is significant for: 1. PleurX catheter placement on left side earlier this month. 2. Left arm AV graft placement a couple of months ago. 3. Prior history of Whipple procedure in 2000. FAMILY HISTORY: Noncontributory for this admission. PERSONAL AND SOCIAL HISTORY: The patient is and lives with his . He is a tobacco smoker. He denies any alcohol or drug use. MEDICATIONS: His home medications include: 1. Magnesium Oxide 250 mg at bedtime. 2. [place]-3 Fatty Acid 1,000 mg daily. 3. Tamsulosin 0.4 mg at bedtime. 4. Midodrine 5 mg twice daily. 5. Vitamin D 1,000 units daily. ALLERGIES: No known drug allergies. REVIEW OF SYSTEMS: Constitutional: The patient has not been feeling well. He has lost about 17 pounds weight since he started dialysis. He has not been eating or drinking well for a few days. Ears, Nose and Throat: Unremarkable. Cardiovascular System: Significant for hypotension. His left arm AV graft was found clotted. Respiratory System: Significant for bilateral pulmonary metastasis and pleural effusion which is most likely malignant. He had a hydropneumothorax and now has a left sided chest tube in addition to PleurX catheter. GI System: Significant for decreased appetite but no vomiting or diarrhea. Genitourinary System: Significant for decreased urine output. Musculoskeletal System: Significant for generalized weakness and back pain. Endocrine System: Negative for diabetes or thyroid problems. He has metastatic adrenal carcinoma of the pancreas. Psychosocial System: Negative for depression or anxiety. Neurological System: Negative for seizures. Hematological System: Negative for anticoagulation. PHYSICAL EXAMINATION: GENERAL APPEARANCE: At the time of my visit the patient is sitting in the chair. He is not in any acute distress and has a left sided chest tube in place. VITAL SIGNS: Temperature is 96.9 degrees Fahrenheit, heart is 70 per minute and respiratory rate is 189 per minute. Blood pressure 122/60 mm of mercury and oxygen saturation is 97% on room air. HEENT: His head is atraumatic. NECK: Supple and JVD is not abnormally elevated. HEART: Regular. CHEST: On the left upper chest he has a Permacath. LUNGS: Diminished breath sounds on the left side. HEART: Without pericardial friction rub. ABDOMEN: Soft and bowel sounds are normal. EXTREMITIES: Without any cyanosis or clubbing. Left arm AV fistula is thrombosed. LABORATORY DATA: Today's labs show a white blood cell count of 9.6, hemoglobin 10.4 and hematocrit 31. Sodium is 142, potassium 3.2, CO2 25, BUN 52 and creatinine is 6.25. Glucose is 120 and calcium 7.6. IMAGING DATA: Chest x-ray done yesterday showed a hydropneumothorax on the left side. He now has a chest tube in place on the left. PROBLEMS: 1. End-stage renal disease - The patient has recently started dialysis. He missed his dialysis on Tuesday due to a clotted AV graft. We will plan to dialyze him this afternoon. 2. Hypokalemia this is related to poor oral intake for the last few days. We will correct his hypokalemia with supplements and with the use of high potassium dialysis bath. 3. Left sided hydropneumothorax his hydrothorax is most likely due to malignant pleural effusion and not related to volume overload. We will not consider any fluid removal during dialysis. He did have a slightly elevated BNP, however he clinically looks dehydrated. 4. Anemia his anemia is chronic and stable. He does not need any urgent intervention. 5. Metastatic pancreatic cancer with possible malignant pleural effusion - The patient had a PleurX catheter in place and now he also has a left sided chest tube in place. He will be followed up with Oncology after discharge. He has not been on any chemotherapy recently. 6. Hypotension his blood pressure seems to be stable. He had been recently on Midodrine 5 mg twice daily and I would suggest to keep him on low dose Midodrine if his blood pressure goes low again. Thank you for involving me in the care of Mr. Acosta. I will follow him along with you.
[2020-05-29] VITALS: BP 102/62
[2020-05-29] MEDS: SODIUM BICARBONATE 325 MG TAB PO SCH ×3 (00:18→21:00)
[2020-05-29] MEDS: LEVALBUTEROL 1.25 MG/0.5 ML CONCENTRATE NEB NEB SCH ×4 (01:46→19:54)
[2020-05-29 04:00] VITALS: BP 104/61
[2020-05-29 06:19] LABS: BASO % 0.4 % (0.0-1.0); EOS # 0.4 10^3/uL (0.0-0.5); EOS % 4.4 % (0.0-3.0); HEMATOCRIT 31.9 % (42.0-52.0); HEMOGLOBIN 9.8 g/dl (13.5-17.5); LYMPH # 0.6 10^3/uL (1.5-5.0); LYMPH % 6.9 % (24.0-44.0); MEAN CORPUSCULAR HEMOGLOBIN 29.1 pg (27.0-33.0); MEAN CORPUSCULAR HGB CONC 30.7 g/dl (32.0-36.5); MEAN CORPUSCULAR VOLUME 94.7 fl (80.0-96.0); MONO # 0.5 10^3/uL (0.0-0.8); MONO % 6.3 % (0.0-5.0); NEUTROPHILS # 6.8 10^3/uL (1.5-8.5); NEUTROPHILS % 80.9 % (36.0-66.0); PLATELET COUNT, AUTOMATED 124 10^3/uL (150-450); RED BLOOD COUNT 3.37 10^6/uL (4.30-6.10); WHITE BLOOD COUNT 8.4 10^3/uL (4.0-10.0)
[2020-05-29 07:05] LABS: CALCIUM LEVEL 7.6 MG/DL (8.8-10.2); CREATININE FOR GFR 5.25 MG/DL (0.70-1.30); GLOMERULAR FILTRATION RATE 11.4 (>42)
[2020-05-29 08:00] VITALS: BP 99/52
[2020-05-29] MEDS: MOM 30ML SUSPENSION UDC PO SCH (09:00)
[2020-05-29] MEDS: TAMSULOSIN 0.4 MG CAP PO SCH (09:24)
[2020-05-29] MEDS: DOCUSATE SODIUM 100MG CAPSULE PO SCH ×2 (09:24→21:23)
[2020-05-29] MEDS: PANTOPRAZOLE 40MG TAB (PROTONIX) PO SCH (09:24)
[2020-05-29] MEDS: MIDODRINE 5 MG TAB PO SCH ×3 (09:24→16:45)
[2020-05-29] MEDS: HEPARIN SOD (PORCINE) 5000UNITS/ML 1ML VIAL/SYRINGE SC SCH ×2 (09:29→21:23)
--- NOTE | 2020-05-29 09:33 | REP ---
INDICATION: pneumthx COMPARISON: 05/28/2027 TECHNIQUE: PA and lateral. FINDINGS: Subcutaneous emphysema along with bilateral pleuroparenchymal changes including left hydropneumothorax, patchy airspace disease is relatively unchanged. Lines and tubes including [id number], double-lumen central venous catheter, and left-sided chest tubes remain stable. Mediastinum and cardiac silhouette relatively stable. IMPRESSION: No significant change from prior examination. <Electronically signed by David Green > 05/29/20 0929
--- NOTE | 2020-05-29 10:37 | REP ---
INDICATION: entrapped lung, air leak. COMPARISON: Comparison chest x-ray is from 29 May 2020 and 27 May 2020.. TECHNIQUE: Helical scanning is acquired. 3 mm axial images are generated. Coronal and sagittal MPR and coronal MIP images are generated. FINDINGS: Preliminary wheel borer radiograph again demonstrates extensive extra thoracic soft tissue emphysema. Is confirmed on axial CT images. There is a left internal jugular [id number] catheter in place with its tip terminating in the the brachiocephalic vein region to the right of midline. A right internal jugular central venous line terminates in the superior vena cava. There are 2 left pleural drainage catheters 1 larger caliber terminating in the base and the other somewhat smaller caliber. Both of these terminate posteriorly in the pleural space. There is an air-fluid level and a moderate size pneumothorax on the left. There are scattered areas of subpleural and perihilar atelectasis in the left lung. No endobronchial disease is appreciated. On the right, there are 3 spiculated pulmonary parenchymal nodules which were previously noted. The 2 in the right upper lobe have cavitary changes. There is are air bronchograms in the nodule in the right lower lobe. These are essentially unchanged from the March 20, 2020 study. There is pneumomediastinum. No mediastinal mass or adenopathy is observed. There is considerable biliary air again noted postoperative changes in the region of the hepatic getachew again noted. There is a new finding of soft tissue emphysema in the pericolonic and/or omental soft tissues in the upper abdomen. This is not felt to reflect free intraperitoneal air but rather soft tissue emphysema. This is located along the of transverse and right colon in the upper abdomen. IMPRESSION: Moderate-sized left-sided hydropneumothorax persists with [address] in [address] Extensive subpleural and perihilar atelectatic changes. There are cavitary spiculated nodules in the right lung unchanged. There is extensive extra thoracic soft tissue emphysema the circumferentially. Pneumomediastinum is seen. Some soft tissue emphysema is seen in the pericolonic soft tissues of the upper abdomen. Pneumobilia is again noted as before. Bilateral internal jugular venous lines. <Electronically signed by Edwin Wood > 05/29/20 [id number]
[2020-05-29 12:00] VITALS: BP 117/67
[2020-05-29] MEDS: NORCO, ANEXSIA 5/325MG TABLET (HYDROcodone/ACETAMINOPHEN) PO PRN (12:09)
--- NOTE | 2020-05-29 13:21 | IPN ---
PROGRESS NOTE DATE: 05/29/2020 Mr. Acosta has developed a very large air leak from the chest tube. His chest x-ray reflects an entrapped lung, which does not expand to the chest wall. His leak is larger today than it was yesterday. He is, however, sitting up comfortably. His vital signs show a maximum temperature of 97.4 with a heart rate that ranges between 69-90 with multiple premature ventricular contractions (PVCs) and trigeminy. Respiratory rate is 16-20 without the use of accessory muscles, who is 96%-97% saturated on room air and whose blood pressure is ranging between 99/52 to 117/67. His intake and output for the past 24 hours has been recorded as 1020 in and 525 out. He has put out 475 mL from the chest tube and 125 mL in the last 12 hours. He weighs 77.6 kg today compared to 77.9 kg yesterday. Nothing was taken off from hemodialysis yesterday. He only had 50 mL out in urine. PHYSICAL EXAMINATION: His lungs show amphoric chest sounds on the left with gurgles and squeaks, consistent with a large air leak. Percussion note is hyperresonant on the left and normal on the right and full to the diaphragm on the right. He has some faint wheezes and rhonchi on inspiration on the right side. Cardiac exam shows an irregular rhythm without murmurs, clicks, gallops, or rubs. I cannot feel his point of maximal impulse (PMI). S1 and S2 are normal. Abdomen is soft and nontender. Bowel sounds are positive. There is no hepatomegaly. No costovertebral angle (CVA) tenderness. Extremities show no pretibial edema, no calf tenderness, no differential swelling of the upper extremities. Skin is warm, dry, and perfused without cyanosis or mottling, including that of the nailbeds and knees. Neck is supple. There is no jugular venous distention. No subcutaneous emphysema. Trachea is midline. Mouth shows the mucous membranes to be pink and moist. Lips and commissures without lesions. No thrush. Eyes show his pupils to be equal and reactive. Extraocular motion intact. Sclerae anicteric. Neurologic shows II-XII intact. Normal gross motor, gross sensation intact. Gait is not tested. Psychiatric shows him to be awake, alert, and oriented times three with appropriate mood and affect and conversational. His white count today is 8.4 with a hemoglobin and hematocrit of 9.8 and 31.9, slightly down from 10.4 and 34.1 yesterday. Platelet count is 124 and stable, and differential shows 84% neutrophils, 6% lymphocytes, 6% monocytes. There are no immature forms or toxic granulations. His electrolytes are normal with a potassium of 5.0. BUN and creatinine are 40 and 5.25 after hemodialysis yesterday. Glucose is 96 with a calcium 7.6. His chest x-ray today shows massive subcutaneous emphysema both from the right and the left. The lung is not to the chest wall. There is an air-fluid level at the bottom of the chest. Chest tube is in good place. PleurX catheter again takes an unusual course, in that it travels anteriorly. IMPRESSION: 1. Hydropneumothorax relieved with a chest tube. 2. Probable lung entrapment. 3. Alveolar pleural fistula, continuing. 4. Metastatic pancreatic carcinoma to the lung. 5. Bigeminy. 6. Hypokalemia, resolved. 7. Chronic renal disease. 8. Tobacco abuse. PLAN AND DISCUSSION: I am concerned about his air leak. It may be that one of the prior cavitary lesions has ruptured into the pleura and is now leaking. He still may have just very poor parenchyma lung tissue, which was violated by the PleurX catheter placement. I will therefore obtain a CT scan of his chest. He may also have bullous disease, which may be amenable to surgical correction.
[2020-05-29 15:52] VITALS: BP 102/60
--- NOTE | 2020-05-29 18:40 | IPNPDOC ---
Date Seen The patient was seen on 05/29/20. Progress Note SUBJECTIVE: CT appears pneumothorax persists, please review CT surgery last note. At this time, plan is to see if lung improves further with chest tube. He denies increased SOB, chest pain, n/v/d. OBJECTIVE: PHYSICAL EXAMINATION: VITAL SIGNS: Please see below. GENERAL APPEARANCE: Well-developed, not in apparent distress, resting in bed HEENT: Normocephalic, atraumatic, mucous membranes moist CARDIOVASCULAR: NSR, Regular rate . No murmurs, rubs or gallops LUNGS: Crepitus in bilateral upper chest wall, decreased BS bilaterally with L>R CHEST: left chest permacath placement BACK: Left lower back chest tube in place with drainage to bedside cannister ABDOMEN: Left pleurX cath in place, Bowel are hypoactive. Abdomen is soft and nontender on palpation MUSCULOSKELETAL: Range of motion intact in all 4 extremities INTEGUMENTARY: Intact, incisions appear clean NEUROLOGICAL: CN 2-12 intact, no focal deficits PSYCHIATRIC: Alert and oriented person, place and time, able to understand and follow commands LABORATORY DATA: See below IMAGING: CT chest 05/29/20: Moderate-sized left-sided hydropneumothorax persists with [address] catheters in place. Extensive subpleural and perihilar atelectatic changes. There are cavitary spiculated nodules in the right lung unchanged. There is extensive extra thoracic soft tissue emphysema the circumferentially. Pneumomediastinum is seen. Some soft tissue emphysema is seen in the pericolonic soft tissues of the upper abdomen. Pneumobilia is again noted as before. Bilateral internal jugular venous lines. ASSESSMENT: 75-year-old male with past mental history of hypertension, anemia, CKD stage 5/end-stage renal disease, pancreatic cancer with metastasis to lung, left-sided pleural effusion status post Pleurx cath placement 05/09/2020 admitted for left-sided pneumothorax requiring left-side chest tube placement, bigeminy/trigeminy, CKD Stage IV requiring hemodialysis. PLAN: Left side hydropneumothorax likely 2/2 to placement of left PleurX cath 05/09/20 -S/p left side chest tube placement -Concern for possible lung entrapment, alveolar pleural fistula remains. Also concern for prior cavitary lesion having ruptured into the pleura and is now leaking as well. -CT scan today above -Still diffuse crepitus in b/l upper chest, improved SOB on RA -F/u repeat CXR in AM -Plan is to c/w chest tube to see if further improvement. CT surgery (Dr. Asif) following, please refer to his most recent note -Monitor on tele Bigeminy/Trigeminy/nonsustained VT arrhythmia- stable -Discussed with Dr. Sy (education teacher cardiology) on admission, decision was made to f/u lytes, replace PRN. Patient is asymptomatic, manage conservatively -replace lytes PRN -Monitor on tele. Hypokalemia, acute- resolved -K wnl today Hypotension, chronic -Stable -C/w home midodrine TID Left side pleural effusion likely malignant -PleurX cath placed -C/w drainage per CT surgery recommendations Metabolic acidosis hx -Currently acidosis is controlled -C/w home sodium bicarb dose CKD Stage 5/ESRD on HD MWF -Permacath now placed(nephrology) consulted. -Renal diet -C/w HD regularly Anemia of chronic disease -F/u nephro recommendations BPH -Tamsulosin Pancreatic cancer with mets to the lung -F/u with oncology o/p Tobacco abuse -Nicotine patch -Plan: Smoking cessation education GI px -PPI DVT prophylaxis -Heparin sc DISPOSITION: Admitted to PCU with Nephrology, CT surgery consulted to follow. Plan is hopefully home at discharge. VS, I&O, 24H, Fishbone Vital Signs/I&O Vital Signs Date Time Temp Pulse Resp B/P (MAP) Pulse Ox O2 Delivery O2 Flow Rate FiO2 05/29/20 15:52 97.3 86 18 102/60 (74) 97 Room Air 05/27/20 20:00 I&O- Last 24 Hours up to 6 AM 05/29/20 06:00 Intake Total 570 ml Output Total 390 ml Balance 180 ml Laboratory Data 24H LABS Laboratory Tests 2 05/29/20 06:15: Immature Granulocyte % (Auto) 1.1, Neutrophils (%) (Auto) 80.9H, Lymphocytes (%) (Auto) 6.9L, Monocytes (%) (Auto) 6.3H, Eosinophils (%) (Auto) 4.4H, Basophils (%) (Auto) 0.4, Neutrophils # (Auto) 6.8, Lymphocytes # (Auto) 0.6L, Monocytes # (Auto) 0.5, Eosinophils # (Auto) 0.4, Basophils # (Auto) 0.0, Nucleated Red Blood Cells % (auto) 0.0, Anion Gap 10, Glomerular Filtration Rate 11.4L, Calcium Level 7.6L CBC/BMP Laboratory Tests 05/29/20 06:15 Microbiology Microbiology 05/28/20 Urine Culture - Final, Complete Current Medications Current Medications Medications (Trade) Dose Ordered Sig/Dejan Route PRN Reason Start Time Stop Time Status Last Admin Dose Admin Acetaminophen (Tylenol Tab) 650 mg Q6HP PRN PO T > 101.5 or FU 05/27/20 16:45 Acetaminophen/ Hydrocodone Bitart ([place], Anexsia 5/325) 1 tab Q3H PRN PO MILD PAIN (PS 1-4) 05/27/20 16:45 05/29/20 12:09 Bisacodyl (Dulcolax Suppository) 10 mg Q4HP PRN [place] CONSTIPATION 05/27/20 16:45 Dextrose/Sodium Chloride 1,000 ml @ 75 mls/hr [id number] IV 05/27/20 16:42 05/28/20 07:55 DC 05/27/20 20:08 Docusate Sodium (Colace) 100 mg BID PO 05/27/20 21:00 05/29/20 09:24 Heparin Sodium (Porcine) (Heparin) 5,000 units Q12H SC 05/27/20 21:00 05/29/20 09:29 Levalbuterol HCl (Xopenex Neb) 1.25 mg Q2HP PRN NEB WHEEZING 05/27/20 16:45 Levalbuterol HCl (Xopenex Neb) 1.25 mg RQ6H NEB 05/27/20 20:00 05/29/20 13:15 Magnesium Hydroxide (Milk Of Magnesia) 30 ml DAILY PO 05/28/20 09:00 Midazolam HCl (Versed) 2 mg STAT STAT IV 05/27/20 18:32 05/27/20 19:51 DC Midazolam HCl (Versed) 2 mg STAT STAT IV 05/27/20 18:34 05/27/20 19:51 DC Midodrine (Proamatine) 5 mg 08,12,16 PO 05/28/20 08:00 05/29/20 16:45 Morphine Sulfate (Morphine Sulfate Inj) 3 mg Q3HP PRN IV SEVERE PAIN (PS 8-10) 05/27/20 23:30 05/27/20 23:50 Nicotine (Nicoderm Cq 14mg) 1 patch DAILY TD 05/27/20 09:00 05/29/20 11:02 DC Ondansetron HCl (ZOFRAN INJection) 4 mg Q4HP PRN IV NAUSEA 05/27/20 16:45 Oxycodone/ Acetaminophen (Percocet 5mg/ 325mg Tablet) 1 tab Q4H PRN PO MODERATE PAIN (PS 5-7) 05/27/20 16:45 05/27/20 20:09 Oxycodone/ Acetaminophen (Percocet 5mg/ 325mg Tablet) 2 tab Q4H PRN PO SEVERE PAIN (PS 8-10) 05/27/20 16:45 05/28/20 20:31 Pantoprazole Sodium (Protonix) 40 mg DAILY PO 05/28/20 09:00 05/29/20 09:24 Sodium Bicarbonate (Sodium Bicarbonate) 650 mg BID PO 05/27/20 21:00 05/29/20 09:25 Tamsulosin HCl (Flomax) 0.4 mg DAILY PO 05/28/20 09:00 05/29/20 09:24 Allergies Coded Allergies: No Known Allergies (Unverified , 07/27/18) Viktoriya Louie MD May 29, 2020 18:40
[2020-05-29 19:53] VITALS: BP 117/66
--- NOTE | 2020-05-29 19:55 | IPN ---
PROGRESS NOTE DATE: 05/29/2020 Mr. Acosta is seen this morning on his bedside. He is laying in his bed and feels tired. He reports that he had a chest x-ray and also a CT scan of his chest done this morning. He denies any nausea or vomiting. There is no dyspnea or chest pain. PHYSICAL EXAMINATION: Temperature 97.0 degrees Fahrenheit, heart rate 70 per minute, respiratory rate 18 per minute, blood pressure 117/67 mmHg, oxygen saturation 97% on room air. HEAD: Atraumatic. NECK: Supple and without jugular venous distention (JVD) or thyroid enlargement. Hemodialysis catheter on left upper chest is intact. HEART SOUNDS: Regular and without a pericardial friction rub. He has a chest tube on the left side and also a drainage catheter on the left chest. ABDOMEN: Soft and nontender.. Bowel sounds are normal. EXTREMITIES: Without any cyanosis or clubbing. Right arm arteriovenous (AV) graft is thrombosed. LABORATORY DATA: Today's laboratories show WBC 8.4, hemoglobin 9.8, hematocrit 31.9, platelets 124. Sodium 141, potassium 5.0, CO2 25, BUN 40, creatinine 5.25, glucose 96, calcium 7.6. PROBLEMS: 1. End-stage renal disease. Patient has been dialysis dependent and was dialyzed yesterday. Will plan to dialyze him again on May 30, 2020. 2. Hydropneumothorax. Patient has a chest tube and he just had a CAT scan of his chest. It still shows moderate hydropneumothorax. Patient is being followed by thoracic surgery. 3. Anemia. His anemia is stable and does not need any urgent intervention. 4. Metastatic pancreatic cancer and pleural effusion. Patient is known to have metastatic cancer with metastasis to lungs. His pleural effusion is felt to be malignant. However, extent of his malignancy is not clear at this point. He has not been on chemotherapy lately. 5. Clotted hemodialysis graft, status post Perma-Cath placement. Patient had a Perma-Cath placed with some difficulty; however, it did work for dialysis yesterday. His graft is clotted, but he was not stable enough for surgery due to pneumothorax. It remains to be seen if his graft could be declotted afterwards.
[2020-05-30] VITALS (7 sets, daily range): BP systolic 94–121; BP diastolic 50–68
[2020-05-30] MEDS: LEVALBUTEROL 1.25 MG/0.5 ML CONCENTRATE NEB NEB SCH ×5 (01:10→19:22)
[2020-05-30] MEDS: MIDODRINE 5 MG TAB PO SCH (07:28)
[2020-05-30 07:38] LABS: BASO % 0.3 % (0.0-1.0); EOS # 0.5 10^3/uL (0.0-0.5); EOS % 7.9 % (0.0-3.0); HEMATOCRIT 31.7 % (42.0-52.0); LYMPH # 0.5 10^3/uL (1.5-5.0); LYMPH % 8.2 % (24.0-44.0); MEAN CORPUSCULAR HEMOGLOBIN 29.8 pg (27.0-33.0); MEAN CORPUSCULAR HGB CONC 31.5 g/dl (32.0-36.5); MEAN CORPUSCULAR VOLUME 94.3 fl (80.0-96.0); MONO # 0.5 10^3/uL (0.0-0.8); MONO % 7.4 % (0.0-5.0); NEUTROPHILS # 4.7 10^3/uL (1.5-8.5); NEUTROPHILS % 75.2 % (36.0-66.0); PLATELET COUNT, AUTOMATED 138 10^3/uL (150-450); RED BLOOD COUNT 3.36 10^6/uL (4.30-6.10); WHITE BLOOD COUNT 6.2 10^3/uL (4.0-10.0)
[2020-05-30 08:04] LABS: CALCIUM LEVEL 7.8 MG/DL (8.8-10.2); CREATININE FOR GFR 5.81 MG/DL (0.70-1.30); GLOMERULAR FILTRATION RATE 10.1 (>42); POTASSIUM SERUM 4.5 MEQ/L (3.5-5.1)
--- NOTE | 2020-05-30 08:25 | REP ---
INDICATION: pneumthx COMPARISON: 05/29/2020 TECHNIQUE: PA and lateral. FINDINGS: Moderate left hydropneumothorax along with diffuse subcutaneous emphysema and subtle right-sided opacities are again identified and relatively unchanged. Two left-sided chest tubes are in stable position. Double-lumen venous catheter with tip in the SVC. [id number] with tip in the SVC. Mediastinum and cardiac silhouette stable. IMPRESSION: No significant change from prior examination. <Electronically signed by David Green > 05/30/20 [id number]
[2020-05-30] MEDS: ONDANSETRON 4MG/2ML VIAL IV PRN ×2 (08:57→15:04)
[2020-05-30] MEDS: SODIUM BICARBONATE 325 MG TAB PO SCH (09:00)
[2020-05-30] MEDS: ASPIRIN 81 MG CHEW TABLET PO SCH (09:00)
[2020-05-30] MEDS: DOCUSATE SODIUM 100MG CAPSULE PO SCH ×2 (09:00→20:15)
[2020-05-30] MEDS: PANTOPRAZOLE 40MG TAB (PROTONIX) PO SCH (09:00)
[2020-05-30] MEDS: MOM 30ML SUSPENSION UDC PO SCH (09:00)
[2020-05-30] MEDS: TAMSULOSIN 0.4 MG CAP PO SCH (09:00)
[2020-05-30] MEDS ORDERED: ALTEPLASE 2MG/2ML VIAL IV PRN (09:45)
--- NOTE | 2020-05-30 10:29 | IPNPDOC ---
Date Seen The patient was seen on 05/30/20. Progress Note This a very pleasant 75-year-old patient with metastatic pancreatic cancer, prognosis unclear, end-stage renal disease on hemodialysis status post left jugular PermCath placement earlier this week. Dr. Parker informed me today that the catheter was not drawing back or flushing. They're going to try alteplase. I reviewed the patient's medication list and he is still not on antiplatelet and anticoagulation. He has metastatic cancer which is likely resulted in a hypercoagulable state, and also intravascularly he tends to run a bit dry, and in addition to that he has an existing right IJ long-term catheter and central vein stenosis. All of this makes a jugular PermCath tenuous and high risk for thrombosis and failure. If he does not have a contraindication, recommend daily aspirin and full anticoagulation with Lovenox. If the alteplase is not successful at improving flow through the jugular catheter, we can bring him to interventional radiology later to see if we can salvage the catheter, or place a femoral catheter. Obviously a femoral catheter is not ideal, but this is a patient with limited options who is high risk for procedures due to his cardiopulmonary status. We will continue to follow along today. VS, I&O, 24H, Fishbone Vital Signs/I&O Vital Signs Date Time Temp Pulse Resp B/P (MAP) Pulse Ox O2 Delivery O2 Flow Rate FiO2 05/30/20 08:30 104/60 (75) 05/30/20 08:00 98.2 78 18 95 Room Air 05/27/20 20:00 I&O- Last 24 Hours up to 6 AM 05/30/20 05:59 Intake Total 550 ml Output Total 625 ml Balance -75 ml Laboratory Data 24H LABS Laboratory Tests 2 05/30/20 07:18: Immature Granulocyte % (Auto) 1.0, Neutrophils (%) (Auto) 75.2H, Lymphocytes (%) (Auto) 8.2L, Monocytes (%) (Auto) 7.4H, Eosinophils (%) (Auto) 7.9H, Basophils (%) (Auto) 0.3, Neutrophils # (Auto) 4.7, Lymphocytes # (Auto) 0.5L, Monocytes # (Auto) 0.5, Eosinophils # (Auto) 0.5, Basophils # (Auto) 0.0, Nucleated Red Blood Cells % (auto) 0.0, Anion Gap 10, Glomerular Filtration Rate 10.1L, Calcium Level 7.8L CBC/BMP Laboratory Tests 05/30/20 07:18 Microbiology Microbiology 05/28/20 Urine Culture - Final, Complete MELI MCDONALD MD May 30, 2020 10:29
[2020-05-30] MEDS ORDERED: ENOXAPARIN 80MG/0.8ML SYRINGE (J1650 PER 10MG) SC SCH (11:00)
--- NOTE | 2020-05-30 14:20 | IPNPDOC ---
Date Seen The patient was seen on 05/30/20. Progress Note SUBJECTIVE: CXR today: no significant change from prior. On RA. Discussed case with both CT surgery and vascular surgery. Started therapeutic dosing of lovenox on patient, ASA per vascular. Consulting med onc. Patient denies increased SOB, chest pain, n/v/d. OBJECTIVE: PHYSICAL EXAMINATION: VITAL SIGNS: Please see below. GENERAL APPEARANCE: NAD, resting in bed HEENT: Normocephalic, atraumatic, mucous membranes moist CARDIOVASCULAR: NSR, Regular rate . No murmurs, rubs or gallops LUNGS: Crepitus in bilateral upper chest wall, decreased BS bilaterally with L>R CHEST: left chest permacath placement BACK: Left lower back chest tube in place with drainage to bedside cannister ABDOMEN: Left pleurX cath in place, Bowel are hypoactive. Abdomen is soft and nontender on palpation MUSCULOSKELETAL: Range of motion intact in all 4 extremities INTEGUMENTARY: Intact, incisions appear clean NEUROLOGICAL: CN 2-12 intact, no focal deficits PSYCHIATRIC: Alert and oriented person, place and time, able to understand and follow commands LABORATORY DATA: See below IMAGING: CT chest 05/29/20: Moderate-sized left-sided hydropneumothorax persists with 2 pleural drainage catheters in place. Extensive subpleural and perihilar atelectatic changes. There are cavitary spiculated nodules in the right lung unchanged. There is extensive extra thoracic soft tissue emphysema the circumferentially. Pneumomediastinum is seen. Some soft tissue emphysema is seen in the pericolonic soft tissues of the upper abdomen. Pneumobilia is again noted as before. Bilateral internal jugular venous lines. ASSESSMENT: 75-year-old male with past mental history of hypertension, anemia, CKD stage 5/end-stage renal disease, pancreatic cancer with metastasis to lung, left-sided pleural effusion status post Pleurx cath placement 05/09/2020 admitted for left-sided pneumothorax requiring left-side chest tube placement, bigeminy/trigeminy, CKD Stage IV requiring hemodialysis. PLAN: Left side hydropneumothorax likely 2/2 to placement of left PleurX cath 05/09/20 -S/p left side chest tube placement -Concern for possible lung entrapment, alveolar pleural fistula remains. Also concern for prior cavitary lesion having ruptured into the pleura and is now leaking as well. -CXR today, similar to last -Still diffuse crepitus in b/l upper chest, improved SOB on RA -Plan is to c/w chest tube to see if further improvement. -CT surgery (Dr. Asif) following, refer to daily notes -Monitor on tele Hypercoagulable state, recent AV fistula thrombosed and now left permacath thrombosis -RF: metastatic cancer, sedentary -Per vascular surgery: "Pt has existing right IJ long-term catheter and central vein stenosis. All of this makes a jugular PermCath tenuous and high risk for thrombosis and failure. If he does not have a contraindication, recommend daily aspirin and full anticoagulation with Lovenox. If the alteplase is not successful at improving flow through the jugular catheter, we can bring him to interventional radiology later to see if we can salvage the catheter, or place a femoral catheter. Femoral catheter is not ideal, but this is a patient with limited options who is high risk for procedures due to his cardiopulmonary status." -Started on therapeutic dosing lovenox, ASA Pancreatic cancer with mets to the lung -Dr. Jimenez, patient's heme/onc provider, out. Discussed consult with Dr. Ghotra. -F/u with oncology consult -Would appreciate input on current treatment plans, prognosis, goals, etc. Bigeminy/Trigeminy/nonsustained VT arrhythmia- stable -Discussed with Dr. Sy (fire control technician b cardiology) on admission, decision was made to f/u lytes, replace PRN. Patient is asymptomatic, manage conservatively -replace lytes PRN -Monitor on tele. Hypotension, chronic -Stable -C/w home midodrine TID Left side pleural effusion likely malignant -PleurX cath remains in place -Place on 05/09/20 in [place] -C/w drainage per CT surgery recommendations Metabolic acidosis hx -Currently acidosis is controlled -C/w home sodium bicarb dose CKD Stage 5/ESRD on HD MWF -Permacath now placed(nephrology) consulted. -Renal diet -C/w HD regularly Anemia of chronic disease -F/u nephro recommendations BPH -Tamsulosin Tobacco abuse -Nicotine patch -Plan: Smoking cessation education GI px -PPI DVT prophylaxis -lovenox therapeutic dosing Resolved issues: Hypokalemia, acute DISPOSITION: Admitted to PCU with Nephrology, CT surgery consulted to follow. Plan is hopefully home at discharge. VS, I&O, 24H, Fishbone Vital Signs/I&O Vital Signs Date Time Temp Pulse Resp B/P (MAP) Pulse Ox O2 Delivery O2 Flow Rate FiO2 05/30/20 08:30 104/60 (75) 05/30/20 08:00 98.2 78 18 95 Room Air 05/27/20 20:00 I&O- Last 24 Hours up to 6 AM 05/30/20 06:00 Intake Total 550 ml Output Total 700 ml Balance -150 ml Laboratory Data 24H LABS Laboratory Tests 2 05/30/20 07:18: Immature Granulocyte % (Auto) 1.0, Neutrophils (%) (Auto) 75.2H, Lymphocytes (%) (Auto) 8.2L, Monocytes (%) (Auto) 7.4H, Eosinophils (%) (Auto) 7.9H, Basophils (%) (Auto) 0.3, Neutrophils # (Auto) 4.7, Lymphocytes # (Auto) 0.5L, Monocytes # (Auto) 0.5, Eosinophils # (Auto) 0.5, Basophils # (Auto) 0.0, Nucleated Red Blood Cells % (auto) 0.0, Anion Gap 10, Glomerular Filtration Rate 10.1L, Calcium Level 7.8L CBC/BMP Laboratory Tests 05/30/20 07:18 Microbiology Microbiology 05/28/20 Urine Culture - Final, Complete Current Medications Current Medications Medications (Trade) Dose Ordered Sig/Dejan Route PRN Reason Start Time Stop Time Status Last Admin Dose Admin Acetaminophen (Tylenol Tab) 650 mg Q6HP PRN PO T > 101.5 or FU 05/27/20 16:45 Acetaminophen/ Hydrocodone Bitart ([place], Anexsia 5/325) 1 tab Q3H PRN PO MILD PAIN (PS 1-4) 05/27/20 16:45 05/29/20 19:16 DC 05/29/20 12:09 Alteplase, Recombinant (Cathflo Activase) 4 mg ASDIRECTED PRN IV SEE LABEL COMMENTS 05/30/20 09:45 Aspirin (Aspirin Chewable) 81 mg DAILY PO 05/30/20 09:00 Bisacodyl (Dulcolax Suppository) 10 mg Q4HP PRN [place] CONSTIPATION 05/27/20 16:45 Dextrose/Sodium Chloride 1,000 ml @ 75 mls/hr [id number] IV 05/27/20 16:42 05/28/20 07:55 DC 05/27/20 20:08 Docusate Sodium (Colace) 100 mg BID PO 05/27/20 21:00 05/29/20 21:23 Enoxaparin Sodium (Lovenox) 80 mg Q12H SC 05/30/20 11:00 05/30/20 11:25 DC Enoxaparin Sodium (Lovenox) 80 mg Q24H SC 05/30/20 12:00 Heparin Sodium (Heparin (Flush)) 500 units ASDIRECTED PRN IV SEE LABEL COMMENTS 05/30/20 11:30 Heparin Sodium (Heparin (Flush)) 500 units DAILY IV 05/31/20 09:00 Heparin Sodium (Porcine) (Heparin) 5,000 units Q12H SC 05/27/20 21:00 05/30/20 10:38 DC 05/29/20 21:23 Levalbuterol HCl (Xopenex Neb) 1.25 mg Q2HP PRN NEB WHEEZING 05/27/20 16:45 Levalbuterol HCl (Xopenex Neb) 1.25 mg RQ6H NEB 05/27/20 20:00 05/30/20 07:34 Magnesium Hydroxide (Milk Of Magnesia) 30 ml DAILY PO 05/28/20 09:00 Midazolam HCl (Versed) 2 mg STAT STAT IV 05/27/20 18:32 05/27/20 19:51 DC Midazolam HCl (Versed) 2 mg STAT STAT IV 05/27/20 18:34 05/27/20 19:51 DC Midodrine (Proamatine) 5 mg 08,12,16 PO 05/28/20 08:00 05/30/20 11:49 DC 05/30/20 07:28 Morphine Sulfate (Morphine Sulfate Inj) 3 mg Q3HP PRN IV SEVERE PAIN (PS 8-10) 05/27/20 23:30 05/27/20 23:50 Nicotine (Nicoderm Cq 14mg) 1 patch DAILY TD 05/27/20 09:00 05/29/20 11:02 DC Ondansetron HCl (ZOFRAN INJection) 4 mg Q4HP PRN IV NAUSEA 05/27/20 16:45 05/30/20 08:57 Oxycodone/ Acetaminophen (Percocet 5mg/ 325mg Tablet) 1 tab Q4H PRN PO MODERATE PAIN (PS 5-7) 05/27/20 16:45 05/29/20 19:16 DC 05/27/20 20:09 Oxycodone/ Acetaminophen (Percocet 5mg/ 325mg Tablet) 2 tab Q4H PRN PO SEVERE PAIN (PS 8-10) 05/27/20 16:45 05/29/20 19:16 DC 05/28/20 20:31 Pantoprazole Sodium (Protonix) 40 mg DAILY PO 05/28/20 09:00 05/29/20 09:24 Sodium Bicarbonate (Sodium Bicarbonate) 650 mg BID PO 05/27/20 21:00 05/29/20 09:25 Sodium Chloride ([place] Flush) 10 ml ASDIRECTED PRN IV SEE LABEL COMMENTS 05/30/20 11:30 Sodium Chloride (Sal[place] Lock Flush) 10 ml DAILY IV 05/31/20 09:00 Tamsulosin HCl (Flomax) 0.4 mg DAILY PO 05/28/20 09:00 05/29/20 09:24 Allergies Coded Allergies: No Known Allergies (Unverified , 07/27/18) Viktoriya Louie MD May 30, 2020 14:20
[2020-05-30] MEDS: ENOXAPARIN 80MG/0.8ML SYRINGE (J1650 PER 10MG) SC SCH (15:05)
[2020-05-30] MEDS: SODIUM CHLORIDE 0.9% INJ 10 ML SYR IV SCH (15:06)
--- NOTE | 2020-05-30 19:27 | CR.PDOC ---
General Date of Consultation: May 30, 2020 Referring Provider: Viktoriya Louie MD Attending Physician: Viktoriya Louie MD Consultation REASON FOR CONSULTATION: Prognosis for pancreatic cancer HISTORY OF PRESENT ILLNESS: 75-year-old man currently admitted for hydropneumothorax. Medical oncology consulted for prognosis of pancreatic cancer. The patient has been on follow-up with Dr. Jimenez for metastatic pancreatic cancer. This is the first time I'm seeing the patient. On review of his medical records, he was first diagnosed with pancreatic cancer in 2000, for which he underwent a Whipple procedure in May 2000. Received postoperative chemotherapy at that time. Subsequently, he was found to have lung lesions, but it was not until October 2014 that this was confirmed as metastatic disease from pancreatic cancer. He received chemotherapy from [id number]. Last chemotherapy was given in April 2017. He has been followed since then with no active treatment given. ALLERGIES: Please see below. HOME MEDICATIONS: Please see below. PAST MEDICAL HISTORY: HTN Vitamin D deficiency BPH Anemia Pancreatic cancer (managed with Whipple in 2000 and chemotherapy) with metastasis in the lung CKD 5/ESRD History of Hydropneumothorax SOCIAL HISTORY: Smokes tobacco products actively, denies alcohol or drug use. Lives with locally. Follows with Dr. Jimenez for heme/onc and Dr. Parker nephrology. REVIEW OF SYSTEMS: Reports weight loss, fatigue, head aches, dizziness, nausea, vomiting, anuria. Rest of 14 point review of systems negative except as noted above and in HPI. PHYSICAL EXAMINATION: VITAL SIGNS: Please see below. GENERAL APPEARANCE: Alert, lying comfortably in bed, not in distress. Answered questions appropriately. HEENT: Pinkish conjunctiva. Anicteric. Moist oral mucosa. Atraumatic. RESPIRATORY: Fair air entry. No rhonchi. Chest tube in place on the left side. CARDIOVASCULAR: S1, S2 regular. ABDOMEN: Soft, nontender, positive bowel sounds. No palpable masses. EXTREMITIES: No calf swelling, no calf tenderness, no pedal edema. No cyanosis. NEUROLOGICAL: Alert, oriented X3. PSYCHIATRIC: No anxiety. LABORATORY DATA: Please see below. ASSESSMENT/PLAN: 75-year-old with metastatic pancreatic cancer. Initially diagnosed in 2000. Confirmed metastatic disease to lungs in October 2014. Received chemotherapy from November 2014 to April 2017. Has not had chemotherapy since that time and followed expectantly for metastatic lung disease. PET scan 12/06/2018 showed essentially stable PET/CT findings with no change in pulmonary parenchymal lesions. CT chest 12/03/2019 showed no change in multiple bilateral lung cavitary masses. CT chest 03/20/2020 showed stability in bilateral lung masses. Large left pleural effusion noted. CT chest 05/29/2020 showed no change in cavitary spiculated nodules. Pleural fluid cytology and cell block 04/14/2020 showed no malignancy. Prognosis for this patient will not be determined by his pancreatic cancer as he has an 'indolent' pancreatic cancer and has not had treatment since 2017. Furthermore, recent imaging studies have not shown disease progression and recent pleural fluid cytology is negative for malignancy. Continue management of renal failure as per nephrology. Continue management of hydropneumothorax as per thoracic surgery. 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 No plan to start chemotherapy at this time, but this can be decided as an outpatient by Dr. Jimenez. Thank you for informing us of Mr. Michele Acosta's admission. Vital Signs/I&O Vital Signs Date Time Temp Pulse Resp B/P (MAP) Pulse Ox O2 Delivery O2 Flow Rate FiO2 05/30/20 16:52 99.3 95 18 95/52 (66) 94 Room Air 05/27/20 20:00 I&O- Last 24 Hours up to 6 AM 05/30/20 06:00 Intake Total 550 ml Output Total 700 ml Balance -150 ml Laboratory Data Labs 24H Laboratory Tests 2 05/30/20 07:18: Immature Granulocyte % (Auto) 1.0, Neutrophils (%) (Auto) 75.2H, Lymphocytes (%) (Auto) 8.2L, Monocytes (%) (Auto) 7.4H, Eosinophils (%) (Auto) 7.9H, Basophils (%) (Auto) 0.3, Neutrophils # (Auto) 4.7, Lymphocytes # (Auto) 0.5L, Monocytes # (Auto) 0.5, Eosinophils # (Auto) 0.5, Basophils # (Auto) 0.0, Nucleated Red Blood Cells % (auto) 0.0, Anion Gap 10, Glomerular Filtration Rate 10.1L, Calcium Level 7.8L CBC/BMP Laboratory Tests 05/30/20 07:18 Microbiology Microbiology 05/28/20 Urine Culture - Final, Complete Allergies Coded Allergies: No Known Allergies (Unverified , 07/27/18) Home Medications Scheduled Magnesium Oxide (Magnesium) 250 Mg Tablet, 250 MG PO QHS, (Reported) [place]-3 Fatty Acids/Fish Oil (Fish Oil 1,000 mg Capsule) 1 Each Capsule, 4 CAP PO DAILY for 30 Days, #120 (Reported) Sodium Bicarbonate (Sodium Bicarbonate) 650 Mg Tablet, 650 MG PO BID for indigestion for 30 Days, #60 Tamsulosin Hcl (Tamsulosin HCl) 0.4 Mg Capsule, 0.4 MG PO QHS for 30 Days, #30 Vitamin D (Vitamin D3) 1,000 Unit Tablet, 4,000 UNITS PO DAILY, #30 JAJA GELLER MD May 30, 2020 18:57
[2020-05-31] VITALS: BP 113/62
[2020-05-31] MEDS: LEVALBUTEROL 1.25 MG/0.5 ML CONCENTRATE NEB NEB SCH ×4 (02:00→20:00)
[2020-05-31 04:00] VITALS: BP 112/59
[2020-05-31 06:41] LABS: BASO % 0.5 % (0.0-1.0); EOS # 0.5 10^3/uL (0.0-0.5); EOS % 8.7 % (0.0-3.0); HEMATOCRIT 29.1 % (42.0-52.0); LYMPH # 0.5 10^3/uL (1.5-5.0); LYMPH % 8.7 % (24.0-44.0); MEAN CORPUSCULAR HEMOGLOBIN 29.5 pg (27.0-33.0); MEAN CORPUSCULAR HGB CONC 30.9 g/dl (32.0-36.5); MEAN CORPUSCULAR VOLUME 95.4 fl (80.0-96.0); MONO # 0.5 10^3/uL (0.0-0.8); MONO % 8.2 % (0.0-5.0); NEUTROPHILS % 71.9 % (36.0-66.0); PLATELET COUNT, AUTOMATED 128 10^3/uL (150-450); RED BLOOD COUNT 3.05 10^6/uL (4.30-6.10); WHITE BLOOD COUNT 5.6 10^3/uL (4.0-10.0)
[2020-05-31 07:21] LABS: CALCIUM LEVEL 7.7 MG/DL (8.8-10.2); CREATININE FOR GFR 4.46 MG/DL (0.70-1.30); GLOMERULAR FILTRATION RATE 13.7 (>42); POTASSIUM SERUM 4.3 MEQ/L (3.5-5.1)
[2020-05-31 08:00] VITALS: BP 96/54
--- NOTE | 2020-05-31 08:32 | REP ---
INDICATION: pneumthx. COMPARISON: Comparison chest x-ray 30 May 2020. TECHNIQUE: Two views.. FINDINGS: Two left chest tubes remain in place. There is a small to moderate-sized left-sided pneumothorax. Volume loss in left hemithorax overall. There is an air-fluid level at the left base indicating hydropneumothorax. Incomplete expansion left lung again noted. Extensive extra thoracic soft tissue emphysema is noted. There is a left IJ line in place with its tip in the midline. A right sided Qaleze-J-Jzuj catheter is seen with its tip in the expected location of the superior vena cava. Mild platelike atelectasis in the right perihilar region is noted unchanged. Pleural air and fluid are visible posteriorly on the lateral film. IMPRESSION: Small to moderate the left-sided hydropneumothorax persists despite [address] Soft tissue emphysema is again noted. There is mild platelike atelectasis in the right perihilar region unchanged.. <Electronically signed by Edwin Wood > 05/31/20 0875
[2020-05-31] MEDS: ONDANSETRON 4MG/2ML VIAL IV PRN (08:44)
[2020-05-31] MEDS: ASPIRIN 81 MG CHEW TABLET PO SCH (09:00)
[2020-05-31] MEDS: PANTOPRAZOLE 40MG TAB (PROTONIX) PO SCH (09:00)
[2020-05-31] MEDS: MOM 30ML SUSPENSION UDC PO SCH (09:00)
[2020-05-31] MEDS ORDERED: PROMETHAZINE 25 MG TAB PO PRN (10:30)
[2020-05-31] MEDS ORDERED: METOCLOPRAMIDE INJ 10MG/2ML VIAL (J2765 PER 1) IV SCH (11:00)
[2020-05-31] MEDS: ENOXAPARIN 80MG/0.8ML SYRINGE (J1650 PER 10MG) SC SCH (11:18)
[2020-05-31 12:00] VITALS: BP 111/67
--- NOTE | 2020-05-31 12:26 | IPN ---
PROGRESS NOTE DATE: 05/30/2020 I saw Mr. Acosta in the dialysis unit today. He still has a rolling air leak His. Pain is being well controlled. He is not complaining of shortness of breath. His vital signs show a maximum temperature of 99.3 with a heart rate that ranges between 99-58 with multiple premature ventricular contractions (PVCs) and bigeminy with a respiratory rate that is constant at 18, who is 94%-97% saturated on room air and whose blood pressure is ranging between 121/57 to 94/50. His intake and output for the past 24 hours has been recorded as 500 in and 675 out for a negativity of 175 mL. He has put out 425 mL from the chest tube. His urine output has been 200 mL. PHYSICAL EXAMINATION: He has markedly decreased breath sounds on the left side. He has scattered rales and rhonchi on the right side. I was not able to sit him up today, as he was on dialysis. Cardiac exam is without murmurs, clicks, gallops, or rubs. I cannot feel his point of maximal impulse (PMI). S1 and S2 are normal. Abdomen is soft and nontender. Bowel sounds are positive. There is no hepatomegaly. No costovertebral angle (CVA) tenderness that I can detect with him the supine position. Extremities show 1+ to trace pretibial edema, no calf tenderness, no differential swelling of the upper extremities. Skin is warm, dry, and perfused without cyanosis or mottling, including that of the nailbeds and knees. Neck is supple. There is no jugular venous distention. No subcutaneous emphysema. Trachea is midline. Mouth shows the mucous membranes to be pink and moist. Lips and commissures without lesions. No thrush. Eyes show his pupils to be equal and reactive. Extraocular motion intact. Sclerae anicteric. Neurologic shows II-XII intact. Normal gross motor, gross sensation intact. Gait is not tested. Psychiatric shows him to be awake and alert. His white count today is 6.2 with a hemoglobin and hematocrit of 10.0 and 31.7, essentially unchanged from yesterday, with a platelet count of 138 and stable. Differential shows 75% neutrophils, 8% lymphocytes, 7% monocytes. There are no immature forms or toxic granulations. His electrolytes are normal with a BUN and creatinine of 52 and 5.81 prior to dialysis with a glucose of 92 and a calcium 7.8. His chest x-ray today shows the lung still not approaching the chest wall. There is subcutaneous emphysema on both the right and left sides with the left greater than the right. I did obtain a CT scan of him yesterday without contrast. In addition to the massive subcutaneous emphysema seen on the CT scan, his lung looks to be entrapped in a fibrotic rind. I do not see a tumor mass per se. There are no endobronchial lesions that I can see on the CT. He does have multiple cavitary lesions, both on the right and left sides. I can almost imagine one of these cavitary lesions has a bronchus leading to the visceral pleura, although not quite penetrating it on the CT scan. These have been biopsy proven carcinoma metastases. I do not see a pericardial effusion. The chest tube is in good place posteriorly, as is the PleurX catheter. It does head posteriorly. There is a small amount of fluid forming an air-fluid level. IMPRESSION: 1. Hydropneumothorax should relieve with a chest tube. 2. Entrapped left lung. 3. Alveolar or bronchopleural fistula, continuing. 4. Metastatic pancreatic carcinoma to the lung. 5. Bigeminy. 6. Hypokalemia, resolved. 7. Chronic renal disease, requiring dialysis. 8. Tobacco abuse. 9. BPH. PLAN AND DISCUSSION: This is going to prove to be a very difficult problem. I am still not sure whether this air leak was caused by puncture of the lung during insertio of the PleurX catheter. Certainly the temporal relationship between the pneumothorax and the PleurX catheter cannot be minimized. Nonetheless, on the CT scan he may have a cavitary lesion, which may have a channel leading to the pleura, creating a bronchopleural fistula. The lung is not coming back to the chest wall, and so the probability of this bronchopleural fistula closing is going to be small. I will allow at least a week for this to resolve. I do not think that a blood patch will fix this problem. My only hope is that the lung has actually been punctured iatrogenically, and if that is the case it should seal. If this is a bronchopleural fistula from the tumor cavitary lesion, there is not much I can do. I might contemplate taking him to the operating room to place a thoracoscope and trying to find the leak, although that, too, would be problematic.
[2020-05-31] MEDS ORDERED: ONDANSETRON 4MG/2ML VIAL IV PRN (13:30)
[2020-05-31] MEDS ORDERED: ONDANSETRON 4MG/2ML VIAL IV ONE (14:00)
--- NOTE | 2020-05-31 14:05 | IPN ---
PROGRESS NOTE DATE: 05/31/2020 Mr. Acosta still has a rip-roaring rolling air leak. He is feeling quite nauseated today and not at all feeling well. His pain is being fairly well controlled at the chest tube insertion site. His vital signs show a maximum temperature of 99.2 with a heart rate that ranges between 85-77 in a sinus rhythm with multiple premature ventricular contractions (PVCs) with a blood pressure that is ranging between 113/62 to 96/54. Respiratory rate varies between 16-17 without the use of accessory muscles, and he is 94%-97% saturated on room air. His intake and output for the past 24 hours has been recorded as 650 in and 1250 out, for a negativity of 600 mL. He has put 500 mL out of the chest tube and had 500 mL taken off at hemodialysis. He weighs 76.4 kg today compared to 76.9 kg yesterday. PHYSICAL EXAMINATION: His left lung shows squeaks and rattles consistent with his air leak. Underlying breath sounds are decreased. Right lung shows scattered rhonchi and rales. Percussion notes are full to the diaphragm. His subcutaneous emphysema seems to be a bit less today over the chest wall. Cardiac is without murmur, clicks, gallops, or rubs. I cannot feel his point of maximal impulse (PMI). S1 and S2 are normal. He has an irregular rhythm. Abdomen is soft, nontender. Bowel sounds are positive. There is no hepatomegaly. No costovertebral angle (CVA) tenderness. Extremities show no pretibial edema, no calf tenderness, no differential swelling of the upper extremities. Skin is warm, dry, and perfused without cyanosis or mottling, including that of the nailbeds and knees. Neck is supple. There is no jugular venous distention. No subcutaneous emphysema. Trachea is midline. Mouth shows the mucous membranes to be pink and moist. Lips and commissures without lesions. No thrush. Eyes show his pupils to be equal and reactive. Extraocular motion intact. Sclerae anicteric. Neurologic shows II-XII intact. Normal gross motor, gross sensation intact. Gait is not tested. Psychiatric shows him to be awake, alert but fairly despondent. His white count today is 5.6 with a hemoglobin and hematocrit of 9.0 and 29.1, respectively, down from yesterday's of 10.0 and 31.7. Platelet count is 128 and stable. Differential shows 71% neutrophils, 8% lymphocytes, 8% monocytes. There are no immature forms or toxic granulations. His electrolytes are essentially normal with a BUN and creatinine, however, of 38 and 4.46 after dialysis yesterday. Glucose is 79 with a calcium 7.7. His chest x-ray shows his lung slightly closer to the chest wall today. Costophrenic angles are sharp. Subcutaneous emphysema may be dissipating but is still present on both sides, both right and left. I see no infiltrates on the right lung. He has still evidence of entrapped, compressed lung on the left side. IMPRESSION: 1. Hydropneumothorax, relieved with a chest tube. 2. Entrapped left lung with residual airspace. 3. Alveolar or bronchopleural fistula, continuing. 4. Metastatic pancreatic carcinoma to the lung. 5. Bigeminy. 6. Hypokalemia, resolved. 7. Chronic renal disease, requiring dialysis. 8. Tobacco abuse. 9. BPH. 10. Nausea. PLAN AND DISCUSSION: We are still in the same place we were in the last few days with regard to his rolling air leak. I am somewhat gratified that the lung looks closer to the chest wall today than it did yesterday. I am therefore going to increase the suction to -40. Though that may very well increase the air leak, it might get the lung closer to the chest wall. If we are going to have any success in diminishing this air leak, the lung will need to get back to the chest wall. It is in there yesterday in my note that a blood patch would probably not be effective, as the lung is not back to the chest wall. I certainly do not want to take him to the operating room to do an exploratory thoracoscopy. I am not sure how I could close the bronchopleural fistula in the face of having multiple cavitary metastatic lesions. He is certainly not a candidate for decortication.
[2020-05-31 16:00] VITALS: BP 102/65
--- NOTE | 2020-05-31 16:00 | IPNPDOC ---
Date Seen The patient was seen on 05/31/20. Progress Note SUBJECTIVE: Nausea with taking all meds, started incr dose zofran, phenergan IV and reglan scheduled. Has had decreased PO intake for food and fluid for 24 H. Air leak still present, CT surgery managing chest tube. Had HD on 05/30/20. Patient denies increased SOB, chest pain, n/v/d. OBJECTIVE: PHYSICAL EXAMINATION: VITAL SIGNS: Please see below. GENERAL APPEARANCE: NAD, resting in bed HEENT: Normocephalic, atraumatic, mucous membranes moist CARDIOVASCULAR: NSR, Regular rate . No murmurs, rubs or gallops LUNGS: Crepitus in bilateral upper chest wall, decreased BS bilaterally with L>R CHEST: left chest permacath placement BACK: Left lower back chest tube in place with drainage to bedside cannister ABDOMEN: Left pleurX cath in place, BS + 4 qud . Abdomen is soft and nontender on palpation MUSCULOSKELETAL: Range of motion intact in all 4 extremities INTEGUMENTARY: Intact, incisions appear clean NEUROLOGICAL: CN 2-12 intact, no focal deficits PSYCHIATRIC: Alert and oriented person, place and time, able to understand and follow commands LABORATORY DATA: See below IMAGING: CXR 05/31/20: Small to moderate the left-sided hydropneumothorax persists despite [address]. Soft tissue emphysema is again noted. There is mild platelike atelectasis in the right perihilar region unchanged. CT chest 05/29/20: Moderate-sized left-sided hydropneumothorax persists with 2 pleural [address] catheters in place. Extensive subpleural and perihilar atelectatic changes. T here are cavitary spiculated nodules in the right lung unchanged. There is extensive extra thoracic soft tissue emphysema the circumferentially. Pneumomediastinum is seen. Some soft tissue emphysema is seen in the pericolonic soft tissues of the upper abdomen. Pneumobilia is again noted as before. Bilateral internal jugular venous lines. ASSESSMENT: 75-year-old male with past mental history of hypertension, anemia, CKD stage 5/end-stage renal disease, pancreatic cancer with metastasis to lung, left-sided pleural effusion status post Pleurx cath placement 05/09/2020 admitted for left-sided pneumothorax requiring left-side chest tube placement, bigeminy/trigeminy, CKD Stage IV requiring hemodialysis. PLAN: Nausea/vomiting -Over past 24 hours. -Pain does not seem to be uncontrolled but he has not taken PO pills due to n/v -BP appears stable, no increased LH, dizziness but has had decreased PO intake of food and fluids due to this. -Added reglan 10 mg TID, phergan and zofran incr dose. Added morphine IV -Would encourage to give antinausea med 30 mins prior to meals if possible Left side hydropneumothorax likely 2/2 to placement of left PleurX cath 05/09/20, left lung entrapment, alveolar or bronchopleural fistula continuing. -S/p left side chest tube placement -CXR today: Ct surgery says lung appears closer to chest wall then yesterday -Still diffuse crepitus in b/l upper chest, on RA -Plan is to increase suction. Blood patch would likely not be effective if lung is not back to chest wall. Multiple cavitary metastatic lesions would make it difficult during surgery to close the bronchopleural fistula -CT surgery (Dr. Asif) following, refer to daily notes -Monitor on tele Hypercoagulable state, recent AV fistula thrombosed and left permacath thrombosis -RF: metastatic cancer, sedentary -Per vascular surgery: "Pt has existing right IJ long-term catheter and central vein stenosis. All of this makes a jugular PermCath tenuous and high risk for thrombosis and failure. If he does not have a contraindication, recommend daily aspirin and full anticoagulation with Lovenox. If the alteplase is not successful at improving flow through the jugular catheter, we can bring him to interventional radiology later to see if we can salvage the catheter, or place a femoral catheter. Femoral catheter is not ideal, but this is a patient with limited options who is high risk for procedures due to his cardiopulmonary status." -C/w therapeutic dosing lovenox, ASA Hx of pancreatic cancer with mets to the lung -Discussed consult with Dr. Ghotra. -Pleural fluid cytology and cell block 04/14/2020 showed no malignancy. -Prognosis for this patient will not be determined by his pancreatic cancer as he has an 'indolent' pancreatic cancer and has not had treatment since 2017. Furthermore, recent imaging studies have not shown disease progression and recent pleural fluid cytology is negative for malignancy. -F/u with oncology o/p Hypotension, chronic -Stable -C/w home midodrine TID Left side pleural effusion likely malignant -PleurX cath remains in place -Place on 05/09/20 in [facility] -C/w drainage per CT surgery recommendations Metabolic acidosis hx -Currently acidosis is controlled -C/w home sodium bicarb dose CKD Stage 5/ESRD on HD MWF -Permacath being used -Renal diet -C/w HD regularly -Nephrology consulted. Anemia of chronic disease -F/u nephro recommendations BPH -Tamsulosin Tobacco abuse -Nicotine patch -Plan: Smoking cessation education GI px -PPI DVT prophylaxis -lovenox therapeutic dosing Resolved issues: Hypokalemia, acute Bigeminy/Trigeminy/nonsustained VT arrhythmia DISPOSITION: Admitted to PCU with Nephrology, CT surgery consulted to follow. Plan is hopefully home at discharge. VS, I&O, 24H, Fishbone Vital Signs/I&O Vital Signs Date Time Temp Pulse Resp B/P (MAP) Pulse Ox O2 Delivery O2 Flow Rate FiO2 05/31/20 12:00 97.7 69 17 111/67 (82) 96 Room Air 05/27/20 20:00 I&O- Last 24 Hours up to 6 AM 05/31/20 06:00 Intake Total 600 ml Output Total 1100 ml Balance -500 ml Laboratory Data 24H LABS Laboratory Tests 2 05/31/20 06:23: Immature Granulocyte % (Auto) 2.0, Neutrophils (%) (Auto) 71.9H, Lymphocytes (%) (Auto) 8.7L, Monocytes (%) (Auto) 8.2H, Eosinophils (%) (Auto) 8.7H, Basophils (%) (Auto) 0.5, Neutrophils # (Auto) 4.0, Lymphocytes # (Auto) 0.5L, Monocytes # (Auto) 0.5, Eosinophils # (Auto) 0.5, Basophils # (Auto) 0.0, Nucleated Red Blood Cells % (auto) 0.0, Anion Gap 6L, Glomerular Filtration Rate 13.7L, Ca lcium Level 7.7L CBC/BMP Laboratory Tests 05/31/20 06:23 Microbiology Microbiology 05/28/20 Urine Culture - Final, Complete Current Medications Current Medications Medications (Trade) Dose Ordered Sig/Dejan Route PRN Reason Start Time Stop Time Status Last Admin Dose Admin Acetaminophen (Tylenol Tab) 650 mg Q6HP PRN PO T > 101.5 or FU 05/27/20 16:45 Acetaminophen/ Hydrocodone Bitart ([place], Anexsia 5/325) 1 tab Q3H PRN PO MILD PAIN (PS 1-4) 05/27/20 16:45 05/29/20 19:16 DC 05/29/20 12:09 Alteplase, Recombinant (Cathflo Activase) 4 mg ASDIRECTED PRN IV SEE LABEL COMMENTS 05/30/20 09:45 Aspirin (Aspirin Chewable) 81 mg DAILY PO 05/30/20 09:00 Bisacodyl (Dulcolax Suppository) 10 mg Q4HP PRN [place] CONSTIPATION 05/27/20 16:45 Dextrose/Sodium Chloride 1,000 ml @ 75 mls/hr [id number] IV 05/27/20 16:42 05/28/20 07:55 DC 05/27/20 20:08 Docusate Sodium (Colace) 100 mg BID PO 05/27/20 21:00 05/29/20 21:23 Enoxaparin Sodium (Lovenox) 80 mg Q12H SC 05/30/20 11:00 05/30/20 11:25 DC Enoxaparin Sodium (Lovenox) 80 mg Q24H SC 05/30/20 12:00 05/31/20 11:18 Heparin Sodium (Heparin (Flush)) 500 units ASDIRECTED PRN IV SEE LABEL COMMENTS 05/30/20 11:30 Heparin Sodium (Heparin (Flush)) 500 units DAILY IV 05/31/20 09:00 05/30/20 15:06 Heparin Sodium (Porcine) (Heparin) 5,000 units Q12H SC 05/27/20 21:00 05/30/20 10:38 DC 05/29/20 21:23 Levalbuterol HCl (Xopenex Neb) 1.25 mg Q2HP PRN NEB WHEEZING 05/27/20 16:45 Levalbuterol HCl (Xopenex Neb) 1.25 mg RQ6H NEB 05/27/20 20:00 05/31/20 08:04 Magnesium Hydroxide (Milk Of Magnesia) 30 ml DAILY PO 05/28/20 09:00 Metoclopramide HCl (REGLAN INJection) 5 mg Q8H IV 05/31/20 11:00 05/31/20 16:02 DC 05/31/20 11:18 Metoclopramide HCl (REGLAN INJection) 10 mg Q8H IV 05/31/20 19:00 Midazolam HCl (Versed) 2 mg STAT STAT IV 05/27/20 18:32 05/27/20 19:51 DC Midazolam HCl (Versed) 2 mg STAT STAT IV 05/27/20 18:34 05/27/20 19:51 DC Midodrine (Proamatine) 5 mg 08,12,16 PO 05/28/20 08:00 05/30/20 11:49 DC 05/30/20 07:28 Morphine Sulfate (Morphine Sulfate Inj) 1 mg Q6H PRN IV MODERATE PAIN (PS 5-7) 05/31/20 16:15 Morphine Sulfate (Morphine Sulfate Inj) 3 mg Q3HP PRN IV SEVERE PAIN (PS 8-10) 05/27/20 23:30 05/27/20 23:50 Nicotine (Nicoderm Cq 14mg) 1 patch DAILY TD 05/27/20 09:00 05/29/20 11:02 DC Ondansetron HCl (ZOFRAN INJection) 4 mg Q4HP PRN IV NAUSEA 05/27/20 16:45 05/31/20 13:29 DC 05/31/20 08:44 Ondansetron HCl (ZOFRAN INJection) 8 mg Q4HP PRN IV NAUSEA 05/31/20 13:30 Oxycodone/ Acetaminophen (Percocet 5mg/ 325mg Tablet) 1 tab Q4H PRN PO MODERATE PAIN (PS 5-7) 05/27/20 16:45 05/29/20 19:16 DC 05/27/20 20:09 Oxycodone/ Acetaminophen (Percocet 5mg/ 325mg Tablet) 2 tab Q4H PRN PO SEVERE PAIN (PS 8-10) 05/27/20 16:45 05/29/20 19:16 DC 05/28/20 20:31 Pantoprazole Sodium (Protonix) 40 mg DAILY PO 05/28/20 09:00 05/29/20 09:24 Promethazine HCl (PHENERGAN INJection) 12.5 mg Q6HP PRN IV NAUSEA 05/31/20 16:15 Promethazine HCl (Phenergan) 25 mg Q6HP PRN PO NAUSEA 05/31/20 10:30 05/31/20 13:29 DC Sodium Bicarbonate (Sodium Bicarbonate) 650 mg BID PO 05/27/20 21:00 05/30/20 17:03 DC 05/29/20 09:25 Sodium Chloride (Saline Lock Flush) 10 ml ASDIRECTED PRN IV SEE LABEL COMMENTS 05/30/20 11:30 Sodium Chloride (Saline Lock Flush) 10 ml DAILY IV 05/31/20 09:00 05/30/20 15:06 Tamsulosin HCl (Flomax) 0.4 mg DAILY PO 05/28/20 09:00 05/29/20 09:24 Allergies Coded Allergies: No Known Allergies (Unverified , 07/27/18) Viktoriya Louie MD May 31, 2020 16:00
[2020-05-31] MEDS ORDERED: PROMETHAZINE INJ 25 MG/ML VIAL (J2550) IV PRN (16:15)
[2020-05-31] MEDS: TAMSULOSIN 0.4 MG CAP PO SCH (17:07)
[2020-05-31] MEDS: DOCUSATE SODIUM 100MG CAPSULE PO SCH ×2 (17:09→21:01)
[2020-05-31 20:00] VITALS: BP 104/61
[2020-05-31] MEDS: METOCLOPRAMIDE INJ 10MG/2ML VIAL (J2765 PER 1) IV SCH (21:01)
--- NOTE | 2020-05-31 22:42 | IPN ---
NEPHROLOGY PROGRESS NOTE DATE: 05/31/2020 SUBJECTIVE: The patient was seen and examined at the bedside today morning. He is afebrile, hemodynamically stable. He was dialyzed yesterday. He tolerated the hemodialysis procedure well. He continues to have a left sided chest tube. OBJECTIVE: VITAL SIGNS: Temperature is 97.7 degrees Fahrenheit, blood pressure 111/67, pulse is 69, respiratory rate of 17, saturating 96% on room air. INTAKE AND OUTPUT: Urine output recorded as 350 mL. Chest tube drainage so far is 550 mL. Ultrafiltration with hemodialysis was 500 mL yesterday. Weight in the bed scale is 76.4 kg. PHYSICAL EXAMINATION: GENERAL APPEARANCE: The patient is awake, alert, oriented x3, weak and cachectic, chronically malnourished. HEAD AND NECK: The patient has bitemporal wasting. Mucous membranes are moist. Neck is supple. He has a left IJ tunneled hemodialysis catheter. CARDIOVASCULAR: S1, S2, regular rate. EXTREMITIES: No edema of the bilateral lower extremities. RESPIRATORY: Chest is clear to auscultation on the right side but there are decreased breath sounds at the left base and he has a left sided chest tube. He has a right anterior chest wall Port-a-Cath. ABDOMEN: Soft, positive bowel sounds, nontender, no organomegaly. MUSCULOSKELETAL: No clubbing, no cyanosis. Pulses are 2+. [employer]CH[employer]ICIAN: No focal deficits. Power is 5/5 in all extremities. LAB REVIEW: CBC showed a white blood cell count of 5.6, hemoglobin is 9, platelet count 128. BMP showed sodium 140, potassium 4.3, chloride 108, bicarbonate 26, BUN 38, creatinine is 4.4. IMAGING: A chest x-ray was done today morning which showed small to moderate left sided hydropneumothorax, persisting despite two chest tubes. CURRENT INPATIENT MEDICATIONS: The patient's medications were all reviewed by myself. Zofran dose has been increased to 8 mg q. 4 hours p.r.n. for nausea or vomiting. Reglan has been stopped. ASSESSMENT AND PLAN: 1. Acute renal failure - The patient was dialyzed via the left IJ tunneled hemodialysis catheter yesterday. Next hemodialysis will be on Tuesday. Volume status is optimal. 2. Persistent left sided hydropneumothorax - The patient has two chest tubes in the left side. CT Surgery is on board. Volume status is being optimized with dialysis, however this a malignant pleural effusion. 3. Anemia in malignancy and end-stage renal disease. 4. Anemia in end-stage renal disease and malignancy - The patient's hemoglobin is slowly dropping now. He is being started on Aranesp with dialysis. I am going to check his iron level as well. 5. Malfunctioning of the left upper arm AV graft and left IJ tunneled hemodialysis catheter - The patient is hypercoagulable. He has been started on anticoagulation now. 6. Metastatic pancreatic cancer with a left sided pleural effusion - management is as per Hematology/Oncology. The patient already has a chest tube on the left side.
[2020-06-01] VITALS: BP 113/62
[2020-06-01] MEDS: LEVALBUTEROL 1.25 MG/0.5 ML CONCENTRATE NEB NEB SCH ×4 (02:00→20:00)
[2020-06-01] MEDS: METOCLOPRAMIDE INJ 10MG/2ML VIAL (J2765 PER 1) IV SCH ×3 (03:00→18:21)
[2020-06-01] MEDS: MORPHINE 4 MG/ML 1ML VIAL/SYRINGE (J2270) IV PRN ×2 (03:51→19:54)
[2020-06-01 04:00] VITALS: BP 105/65
[2020-06-01 05:59] LABS: BASO % 0.5 % (0.0-1.0); EOS # 0.5 10^3/uL (0.0-0.5); EOS % 8.2 % (0.0-3.0); HEMATOCRIT 30.5 % (42.0-52.0); HEMOGLOBIN 9.6 g/dl (13.5-17.5); LYMPH # 0.3 10^3/uL (1.5-5.0); LYMPH % 5.1 % (24.0-44.0); MEAN CORPUSCULAR HEMOGLOBIN 29.8 pg (27.0-33.0); MEAN CORPUSCULAR HGB CONC 31.5 g/dl (32.0-36.5); MEAN CORPUSCULAR VOLUME 94.7 fl (80.0-96.0); MONO # 0.3 10^3/uL (0.0-0.8); MONO % 5.2 % (0.0-5.0); NEUTROPHILS # 4.7 10^3/uL (1.5-8.5); NEUTROPHILS % 78.8 % (36.0-66.0); PLATELET COUNT, AUTOMATED 126 10^3/uL (150-450); RED BLOOD COUNT 3.22 10^6/uL (4.30-6.10); WHITE BLOOD COUNT 5.9 10^3/uL (4.0-10.0)
[2020-06-01 06:50] LABS: CALCIUM LEVEL 7.7 MG/DL (8.8-10.2); CREATININE FOR GFR 5.25 MG/DL (0.70-1.30); GLOMERULAR FILTRATION RATE 11.4 (>42); PERCENT SATURATION 33.1 % (19.7-50.0); POTASSIUM SERUM 4.6 MEQ/L (3.5-5.1)
[2020-06-01 08:00] VITALS: BP 119/64
--- NOTE | 2020-06-01 08:15 | REP ---
INDICATION: pneumthx. COMPARISON: Comparison chest 31 May 2020, 30 May 2020 and 29 May 2020 TECHNIQUE: Two views.. FINDINGS: Two left pleural drainage catheters remain in place. The left lung has gained some aerated volume in the interval since the 29 May 2020 study. Corresponding decrease in the size of left-sided pneumothorax over that interval. Extensive extra thoracic soft tissue emphysema persists diffusely and bilaterally. Two central venous lines are again noted unchanged in position. Monitoring electrodes are seen. IMPRESSION: Gradually improving aeration left lung.. <Electronically signed by Edwin Wood > 06/01/20 [id number]
[2020-06-01] MEDS: ASPIRIN 81 MG CHEW TABLET PO SCH (08:44)
[2020-06-01] MEDS: DOCUSATE SODIUM 100MG CAPSULE PO SCH ×2 (08:44→19:57)
[2020-06-01] MEDS: PANTOPRAZOLE 40MG TAB (PROTONIX) PO SCH (08:44)
[2020-06-01] MEDS: TAMSULOSIN 0.4 MG CAP PO SCH (08:44)
[2020-06-01] MEDS: SODIUM CHLORIDE 0.9% INJ 10 ML SYR IV SCH (08:45)
[2020-06-01] MEDS: MOM 30ML SUSPENSION UDC PO SCH (08:46)
[2020-06-01 12:24] VITALS: BP 100/56
[2020-06-01] MEDS: ENOXAPARIN 80MG/0.8ML SYRINGE (J1650 PER 10MG) SC SCH (12:38)
--- NOTE | 2020-06-01 15:11 | IPNPDOC ---
Date Seen The patient was seen on 06/01/20. Progress Note SUBJECTIVE: Improved n/v, switched to IV morphine vs PO meds. Drinking well, eating 25% of meals. Remains on RA. Patient denies increased SOB, chest pain, n/v/d. OBJECTIVE: PHYSICAL EXAMINATION: VITAL SIGNS: Please see below. GENERAL APPEARANCE: NAD, resting in bed HEENT: Normocephalic, atraumatic, mucous membranes moist CARDIOVASCULAR: NSR, Regular rate . No murmurs, rubs or gallops LUNGS: Crepitus in bilateral upper chest wall, decreased BS bilaterally with L>R CHEST: left chest permacath placement BACK: Left lower back chest tube in place with drainage to bedside cannister ABDOMEN: Left pleurX cath in place, BS + 4 qud . Abdomen is soft and nontender on palpation MUSCULOSKELETAL: Range of motion intact in all 4 extremities INTEGUMENTARY: Intact, incisions appear clean NEUROLOGICAL: CN 2-12 intact, no focal deficits PSYCHIATRIC: Alert and oriented person, place and time, able to understand and follow commands LABORATORY DATA: See below IMAGING: CXR: 06/01/20: Gradually improving aeration left lung. CXR 05/31/20: Small to moderate the left-sided hydropneumothorax persists despite [address]. Soft tissue emphysema is again noted. There is mild platelike atelectasis in the right perihilar region unchanged. CT chest 05/29/20: Moderate-sized left-sided hydropneumothorax persists with 2 [address] catheters in place. Extensive subpleural and perihilar atelectatic changes. There are cavitary spiculated nodules in the right lung unchanged. There is extensive extra thoracic soft tissue emphysema the circumferentially. Pneumomediastinum is seen. Some soft tissue emphysema is seen in the pericolonic soft tissues of the upper abdomen. Pneumobilia is again noted as before. Bilateral internal jugular venous lines. ASSESSMENT: 75-year-old male with past mental history of hypertension, anemia, CKD stage 5/end-stage renal disease, pancreatic cancer with metastasis to lung, left-sided pleural effusion status post Pleurx cath placement 05/09/2020 admitted for left-sided pneumothorax requiring left-side chest tube placement, bigeminy/trigeminy, CKD Stage IV requiring hemodialysis. PLAN: Nausea/vomiting -Improved further over past 24 hours, taking meds and ate 25% of meals -Switched to IV pain meds vs. PO -C/w reglan 10 mg TID, phergan and zofran incr dose. -Would encourage to give antinausea med 30 mins prior to meals if possible Left side hydropneumothorax likely 2/2 to placement of left PleurX cath 05/09/20, left lung entrapment, alveolar or bronchopleural fistula continuing. -S/p left side chest tube placement -CXR today: Gradually improving aeration left lung. -Still diffuse crepitus in b/l upper chest, on RA -Increased suction. Blood patch would likely not be effective if lung is not back to chest wall. Multiple cavitary metastatic lesions would make it difficult during surgery to close the bronchopleural fistula -CT surgery (Dr. Asif) following, refer to daily notes -Monitor on tele Hypercoagulable state, recent AV fistula thrombosed and left permacath thrombosis -RF: metastatic cancer, sedentary -Per vascular surgery: "Pt has existing right IJ long-term catheter and central vein stenosis. All of this makes a jugular PermCath tenuous and high risk for thrombosis and failure. If he does not have a contraindication, recommend daily aspirin and full anticoagulation with Lovenox. If the alteplase is not successful at improving flow through the jugular catheter, we can bring him to interventional radiology later to see if we can salvage the catheter, or place a femoral catheter. Femoral catheter is not ideal, but this is a patient with limited options who is high risk for procedures due to his cardiopulmonary status." -C/w therapeutic dosing lovenox, ASA Hx of pancreatic cancer with mets to the lung -Discussed consult with Dr. Ghotra. -Pleural fluid cytology and cell block 04/14/2020 showed no malignancy. -Prognosis for this patient will not be determined by his pancreatic cancer as he has an 'indolent' pancreatic cancer and has not had treatment since 2017. Furthermore, recent imaging studies have not shown disease progression and recent pleural fluid cytology is negative for malignancy. -F/u with oncology o/p Hypotension, chronic -Stable -C/w home midodrine TID Left side pleural effusion likely malignant -PleurX cath remains in place -Place on 05/09/20 in [facility] -C/w drainage per CT surgery recommendations CKD Stage 5/ESRD on HD MWF -Permacath being used -Renal diet -C/w HD regularly -Nephrology consulted. Anemia of chronic disease, malignancy -F/u iron studies -Starting aranesp with dialysis -F/u nephro recommendations BPH -Tamsulosin Tobacco abuse -Nicotine patch -Plan: Smoking cessation education GI px -PPI DVT prophylaxis -lovenox therapeutic dosing Resolved issues: Hypokalemia, acute Bigeminy/Trigeminy/nonsustained VT arrhythmia DISPOSITION: Admitted to PCU with Nephrology, CT surgery consulted to follow. Plan is hopefully home at discharge. VS, I&O, 24H, Fishbone Vital Signs/I&O Vital Signs Date Time Temp Pulse Resp B/P (MAP) Pulse Ox O2 Delivery O2 Flow Rate FiO2 06/01/20 12:24 98.6 81 20 100/56 (71) 95 Room Air 05/27/20 20:00 I&O- Last 24 Hours up to 6 AM 06/01/20 05:59 Intake Total 1000 ml Output Total 1270 ml Balance -270 ml Laboratory Data 24H LABS Laboratory Tests 2 06/01/20 05:38: Anion Gap 10, Glomerular Filtration Rate 11.4L, Calcium Level 7.7L, Iron Level 52L, Total Iron Binding Capacity 157L, Transferrin % Saturation 33.1, Ferritin 1054H 06/01/20 05:39: Immature Granulocyte % (Auto) 2.2, Neutrophils (%) (Auto) 78.8H, Lymphocytes (%) (Auto) 5.1L, Monocytes (%) (Auto) 5.2H, Eosinophils (%) (Auto) 8.2H, Basophils (%) (Auto) 0.5, Neutrophils # (Auto) 4.7, Lymphocytes # (Auto) 0.3L, Monocytes # (Auto) 0.3, Eosinophils # (Auto) 0.5, Basophils # (Auto) 0.0, Nucleated Red Blood Cells % (auto) 0.0 CBC/BMP Laboratory Tests 06/01/20 05:38 06/01/20 05:39 Microbiology Microbiology 05/28/20 Urine Culture - Final, Complete Current Medications Current Medications Medications (Trade) Dose Ordered Sig/Dejan Route PRN Reason Start Time Stop Time Status Last Admin Dose Admin Acetaminophen (Tylenol Tab) 650 mg Q6HP PRN PO T > 101.5 or FU 1/26/21 16:45 Acetaminophen/ Hydrocodone Bitart ([place], Anexsia 5/325) 1 tab Q3H PRN PO MILD PAIN (PS 1-4) 05/27/20 16:45 05/29/20 19:16 DC 05/29/20 12:09 Alteplase, Recombinant (Cathflo Activase) 4 mg ASDIRECTED PRN IV SEE LABEL COMMENTS 05/30/20 09:45 Aspirin (Aspirin Chewable) 81 mg DAILY PO 05/30/20 09:00 06/01/20 08:44 Bisacodyl (Dulcolax Suppository) 10 mg Q4HP PRN [place] CONSTIPATION 05/27/20 16:45 Darbepoetin Mert (Aranesp (Dialysis Use)) 100 mcg HD IV 05/31/20 20:00 Dextrose/Sodium Chloride 1,000 ml @ 75 mls/hr [id number] IV 05/27/20 16:42 05/28/20 07:55 DC 05/27/20 20:08 Docusate Sodium (Colace) 100 mg BID PO 05/27/20 21:00 06/01/20 08:44 Enoxaparin Sodium (Lovenox) 80 mg Q12H SC 05/30/20 11:00 05/30/20 11:25 DC Enoxaparin Sodium (Lovenox) 80 mg Q24H SC 05/30/20 12:00 06/01/20 12:38 Heparin Sodium (Heparin (Flush)) 500 units ASDIRECTED PRN IV SEE LABEL COMMENTS 05/30/20 11:30 Heparin Sodium (Heparin (Flush)) 500 units DAILY IV 05/31/20 09:00 06/01/20 08:45 Heparin Sodium (Porcine) (Heparin) 5,000 units Q12H SC 05/27/20 21:00 05/30/20 10:38 DC 05/29/20 21:23 Levalbuterol HCl (Xopenex Neb) 1.25 mg Q2HP PRN NEB WHEEZING 05/27/20 16:45 Levalbuterol HCl (Xopenex Neb) 1.25 mg RQ6H NEB 05/27/20 20:00 06/01/20 14:23 Magnesium Hydroxide (Milk Of Magnesia) 30 ml DAILY PO 05/28/20 09:00 Metoclopramide HCl (REGLAN INJection) 5 mg Q8H IV 05/31/20 11:00 05/31/20 16:02 DC 05/31/20 11:18 Metoclopramide HCl (REGLAN INJection) 10 mg Q8H IV 05/31/20 19:00 Midazolam HCl (Versed) 2 mg STAT STAT IV 05/27/20 18:32 05/27/20 19:51 DC Midazolam HCl (Versed) 2 mg STAT STAT IV 05/27/20 18:34 05/27/20 19:51 DC Midodrine (Proamatine) 5 mg 08,12,16 PO 05/28/20 08:00 05/30/20 11:49 DC 05/30/20 07:28 Morphine Sulfate (Morphine Sulfate Inj) 1 mg Q6H PRN IV MODERATE PAIN (PS 5-7) 05/31/20 16:15 Morphine Sulfate (Morphine Sulfate Inj) 3 mg Q3HP PRN IV SEVERE PAIN (PS 8-10) 05/27/20 23:30 06/01/20 03:51 Nicotine (Nicoderm Cq 14mg) 1 patch DAILY TD 05/27/20 09:00 05/29/20 11:02 DC Ondansetron HCl (ZOFRAN INJection) 4 mg Q4HP PRN IV NAUSEA 05/27/20 16:45 05/31/20 13:29 DC 05/31/20 08:44 Ondansetron HCl (ZOFRAN INJection) 8 mg Q4HP PRN IV NAUSEA 05/31/20 13:30 Oxycodone/ Acetaminophen (Percocet 5mg/ 325mg Tablet) 1 tab Q4H PRN PO MODERATE PAIN (PS 5-7) 05/27/20 16:45 05/29/20 19:16 DC 05/27/20 20:09 Oxycodone/ Acetaminophen (Percocet 5mg/ 325mg Tablet) 2 tab Q4H PRN PO SEVERE PAIN (PS 8-10) 05/27/20 16:45 05/29/20 19:16 DC 05/28/20 20:31 Pantoprazole Sodium (Protonix) 40 mg DAILY PO 05/28/20 09:00 06/01/20 08:44 Promethazine HCl (PHENERGAN INJection) 12.5 mg Q6HP PRN IV NAUSEA 05/31/20 16:15 05/31/20 17:09 Promethazine HCl (Phenergan) 25 mg Q6HP PRN PO NAUSEA 05/31/20 10:30 05/31/20 13:29 DC Sodium Bicarbonate (Sodium Bicarbonate) 650 mg BID PO 05/27/20 21:00 05/30/20 17:03 DC 05/29/20 09:25 Sodium Chloride (Saline Lock Flush) 10 ml ASDIRECTED PRN IV SEE LABEL COMMENTS 05/30/20 11:30 Sodium Chloride (Saline Lock Flush) 10 ml DAILY IV 05/31/20 09:00 06/01/20 08:45 Tamsulosin HCl (Flomax) 0.4 mg DAILY PO 05/28/20 09:00 06/01/20 08:44 Allergies Coded Allergies: No Known Allergies (Unverified , 07/27/18) Viktoriya Louie MD Jun 01, 2020 15:11
[2020-06-01 16:00] VITALS: BP 104/61
--- NOTE | 2020-06-01 16:29 | IPN ---
NEPHROLOGY PROGRESS NOTE DATE: 06/01/2020 SUBJECTIVE: Patient was seen and examined at the bedside today morning. He is afebrile and hemodynamically stable. He continues to have a left-sided chest tube. He denies any active complaints at this time. OBJECTIVE: VITAL SIGNS: Temperature 98.6 degrees Fahrenheit, blood pressure 100/56, pulse 81, respiratory rate 20, saturating 95% on room air. INTAKE AND OUTPUT: Urine output recorded as 325 mL. Left-sided chest tube drainage is 200 mL. Weight in the bed scale is 77.3 kg. PHYSICAL EXAMINATION: GENERAL: Patient is awake, alert and oriented x3, weak and cachectic, chronically malnourished. HEAD/NECK: He has bitemporal wasting. Mucous membranes are moist. Neck is supple. There is no JVD. CARDIOVASCULAR: S1, S2, regular rate. No edema of the bilateral lower extremities. He has a left tunneled dialysis catheter. RESPIRATORY: Chest is clear to auscultation bilaterally. Bilateral equal air entry. No rales or rhonchi. Patient has left-sided chest tube. ABDOMEN: Soft, positive bowel sounds, nontender. No organomegaly. MUSCULOSKELETAL: No clubbing or cyanosis. Pulses are 2+. ENGINEERING GEOLOGIST: No focal deficit. Power is 5/5 in all extremities. LABORATORY REVIEW: CBC showed WBC 5.9, hemoglobin 9.6, platelets 126,000. BMP showed sodium 140, potassium 4.6, chloride 106, bicarb 24, BUN 47, creatinine 5.2. CURRENT INPATIENT MEDICATIONS: Patient's medications were all reviewed by myself. No other significant change in the medications today as compared with yesterday. ASSESSMENT AND PLAN: 1. Acute renal failure: Patient is dialysis dependent now. He was dialyzed before the weekend. Next hemodialysis will be done tomorrow morning. 2. Anemia in malignancy and end-stage renal disease: Patient has been started on Aranesp, iron levels are adequate. 3. Persistent left-sided hydropneumothorax: She has a chest tube now. Volume status is being optimized with dialysis. This is malignant pleural effusion. 4. Metastatic pancreatic cancer: Patient is currently not on any chemotherapy and as per notes, he has indolent pancreatic cancer which has not been treated since 2017. 5. Hypercoagulable state: Patient has been started on Lovenox now.
[2020-06-01 20:00] VITALS: BP 104/50
[2020-06-01] MEDS ORDERED: SODIUM CHLORIDE 0.9% 1000ML IV PRN (21:00)
[2020-06-02] VITALS: BP 107/58
[2020-06-02] MEDS: LEVALBUTEROL 1.25 MG/0.5 ML CONCENTRATE NEB NEB SCH ×4 (02:00→19:47)
[2020-06-02] MEDS: METOCLOPRAMIDE INJ 10MG/2ML VIAL (J2765 PER 1) IV SCH ×3 (03:00→18:15)
[2020-06-02 04:00] VITALS: BP 103/61
[2020-06-02 07:53] VITALS: BP 96/60
[2020-06-02 07:57] LABS: HEMATOCRIT 29.7 % (42.0-52.0); HEMOGLOBIN 9.4 g/dl (13.5-17.5); MEAN CORPUSCULAR HEMOGLOBIN 29.9 pg (27.0-33.0); MEAN CORPUSCULAR HGB CONC 31.6 g/dl (32.0-36.5); MEAN CORPUSCULAR VOLUME 94.6 fl (80.0-96.0); PLATELET COUNT, AUTOMATED 129 10^3/uL (150-450); RED BLOOD COUNT 3.14 10^6/uL (4.30-6.10); WHITE BLOOD COUNT 5.5 10^3/uL (4.0-10.0)
[2020-06-02] MEDS: ASPIRIN 81 MG CHEW TABLET PO SCH (07:59)
[2020-06-02] MEDS: PANTOPRAZOLE 40MG TAB (PROTONIX) PO SCH (07:59)
[2020-06-02] MEDS: TAMSULOSIN 0.4 MG CAP PO SCH (07:59)
[2020-06-02] MEDS: DOCUSATE SODIUM 100MG CAPSULE PO SCH ×2 (07:59→20:38)
[2020-06-02] MEDS: MOM 30ML SUSPENSION UDC PO SCH (07:59)
--- NOTE | 2020-06-02 08:29 | REP ---
INDICATION: pneumthx COMPARISON: 06/01/2020 TECHNIQUE: PA and lateral. FINDINGS: Allowing for variation in technique, current examination suggests minimal improvement with decreased subcutaneous emphysema suggested. Left hydropneumothorax along with underlying bilateral airspace disease (left greater than right) again noted. No new acute process appreciated. Double-lumen catheter, [id number], and left chest tube in stable position. Cardiac silhouette normal. Osseous structures stable. IMPRESSION: Suggestions for minimal improvement. No new acute process appreciated. <Electronically signed by David Green > 06/02/20 1841
[2020-06-02 08:31] LABS: BILIRUBIN,TOTAL 0.4 MG/DL (0.2-1.0); CALCIUM LEVEL 7.8 MG/DL (8.8-10.2); CREATININE FOR GFR 5.59 MG/DL (0.70-1.30); GLOMERULAR FILTRATION RATE 10.6 (>42); POTASSIUM SERUM 4.9 MEQ/L (3.5-5.1); TOTAL PROTEIN 5.2 GM/DL (6.4-8.2)
[2020-06-02] MEDS: DARBEPOETIN 100 MCG/0.5 ML *DIALYSIS* SYRINGE (J0882) IV SCH (10:15)
[2020-06-02] MEDS: MORPHINE 4 MG/ML 1ML VIAL/SYRINGE (J2270) IV PRN (10:46)
[2020-06-02] MEDS: ACETAMINOPHEN TAB 650MG DOSE (2X325MG) PO PRN (12:32)
[2020-06-02] MEDS: SODIUM CHLORIDE 0.9% INJ 10 ML SYR IV SCH (12:33)
[2020-06-02] MEDS: ENOXAPARIN 80MG/0.8ML SYRINGE (J1650 PER 10MG) SC SCH (12:34)
--- NOTE | 2020-06-02 12:59 | IPN ---
NEPHROLOGY PROGRESS NOTE DATE: 06/02/2020 SUBJECTIVE: Patient was seen and examined at the bedside today morning during hemodialysis. He is tolerating the hemodialysis procedure. His blood pressures were soft, so no fluid is being removed during dialysis. OBJECTIVE: VITAL SIGNS: Temperature 98.3 degrees Fahrenheit, blood pressure 96/60, pulse 86, respiratory rate 18, saturating 95% on room air. INTAKE AND OUTPUT: Urine output recorded as 250 mL. Chest tube drainage so far is 250 mL. Weight in the bed scale is 76 kg. PHYSICAL EXAMINATION: GENERAL: Patient is awake, alert and oriented x3, weak and cachectic, chronically malnourished, lying in bed getting dialysis done. HEAD/NECK: Extraocular muscles intact. Pupils equally round and reactive to light. Neck is supple. He has a left IJ tunneled hemodialysis catheter being used for dialysis. CARDIOVASCULAR: S1, S2, regular rate. No edema of the bilateral lower extremities. RESPIRATORY: Decreased breath sounds at the left base. He has a left-sided chest tube. ABDOMEN: Soft, positive bowel sounds, nontender. No organomegaly. MUSCULOSKELETAL: No clubbing or cyanosis. Pulses are 2+. RN FACULTY: No focal deficit. Power is 5/5 in all extremities. LAB REVIEW: CBC showed WBC 5.5, hemoglobin 9.4, platelets 129,000. BMP showed sodium 140, potassium 4.9, chloride 109, bicarb 23, BUN 64, creatinine 5.5. CURRENT INPATIENT MEDICATIONS: Patient's medications were all reviewed by myself. No other significant change in the medications today as compared with yesterday. ASSESSMENT AND PLAN: 1. End-stage renal disease: Patient is being dialyzed today; minimal fluid removal because patient is weak and cachectic and he is not eating much. 2. Anemia and end-stage renal disease and malignancy: Continue current dose of Aranesp. 3. Persistent left-sided hydropneumothorax: Patient has a chest tube. Management is as per CT surgery. Most likely it is associated with metastatic lesions in his lungs. 4. Metastatic pancreatic cancer: Patient is currently not on any chemotherapy. Management is as per recommendations from HEM/ONC. 5. Hypercoagulable state: Continue current dose of Lovenox.
[2020-06-02 16:00] VITALS: BP 86/62
--- NOTE | 2020-06-02 17:50 | IPNPDOC ---
Date Seen The patient was seen on 06/02/20. Progress Note SUBJECTIVE: Improved n/v but appetite is still decreased. No fluid taken off today with HD. Remains on RA. Patient denies increased SOB, chest pain, n/v/d. OBJECTIVE: PHYSICAL EXAMINATION: VITAL SIGNS: Please see below. GENERAL APPEARANCE: NAD, resting in bed HEENT: Normocephalic, atraumatic, mucous membranes moist CARDIOVASCULAR: NSR, Regular rate . No murmurs, rubs or gallops LUNGS: Crepitus in bilateral upper chest wall, decreased BS bilaterally with L>R CHEST: left chest permacath placement BACK: Left lower back chest tube in place with drainage to bedside cannister ABDOMEN: Left pleurX cath in place, BS + 4 qud . Abdomen is soft and nontender on palpation MUSCULOSKELETAL: Range of motion intact in all 4 extremities INTEGUMENTARY: Intact, no rashes NEUROLOGICAL: CN 2-12 intact, no focal deficits PSYCHIATRIC: Alert and oriented person, place and time, able to understand and follow commands LABORATORY DATA: See below IMAGING: CXR 06/02/20: Suggestions for minimal improvement. No new acute process appreciated. CXR: 06/01/20: Gradually improving aeration left lung. CXR 05/31/20: Small to moderate the left-sided hydropneumothorax persists despite [address] Soft tissue emphysema is again noted. There is mild platelike atelectasis in the right perihilar region unchanged. CT chest 05/29/20: Moderate-sized left-sided hydropneumothorax persists with [address] in place. Extensive subpleural and perihilar atelectatic changes. There are cavitary spiculated nodules in the right lung unchanged. There is extensive extra thoracic soft tissue emphysema the circumferentially. Pneumomediastinum is seen. Some soft tissue emphysema is seen in the pericolonic soft tissues of the upper abdomen. Pneumobilia is again noted as bef ore. Bilateral internal jugular venous lines. ASSESSMENT: 75-year-old male with past mental history of hypertension, anemia, CKD stage 5/end-stage renal disease, pancreatic cancer with metastasis to lung, left-sided pleural effusion status post Pleurx cath placement 05/09/2020 admitted for left-sided pneumothorax requiring left-side chest tube placement, bigeminy/trigeminy, CKD Stage IV requiring hemodialysis. PLAN: Nausea/vomiting- improved little -Cachectic, still has decreased appetite. Taking all medications today, picking at foods. -If this does not improve, concern is for failure to thrive -C/w IV pain meds instead of PO, reglan 10 mg TID, phergan and zofran incr dose. -Would encourage to give antinausea med 30 mins prior to meals if possible -Nutrition consulted again to give full assessment Hypotension, chronic -Slightly worsened today, 86-96/60's . Did not take off fluid with HD today -Holding off on IVFs but will discuss further with nephrology -C/w home midodrine TID Left side hydropneumothorax likely 2/2 to placement of left PleurX cath 05/09/20, left lung entrapment, alveolar or bronchopleural fistula continuing. -S/p left side chest tube placement -CXR today; above -Still diffuse crepitus in b/l upper chest but improving , on RA -Increased suction. Blood patch would likely not be effective if lung is not back to chest wall. Multiple cavitary metastatic lesions would make it difficult during surgery to close the bronchopleural fistula -CT surgery (Dr. Asif) following, refer to daily notes. -Monitor on tele Hypercoagulable state, recent AV fistula thrombosed and left permacath thrombosis -RF: metastatic cancer, sedentary -Per vascular surgery: "Pt has existing right IJ long-term catheter and central vein stenosis. All of this makes a jugular PermCath tenuous and high risk for thrombosis and failure. If he does not have a contraindication, recommend daily aspirin and full anticoagulation with Lovenox. If the alteplase is not succ essful at improving flow through the jugular catheter, we can bring him to interventional radiology later to see if we can salvage the catheter, or place a femoral catheter. Femoral catheter is not ideal, but this is a patient with limited options who is high risk for procedures due to his cardiopulmonary status." -C/w therapeutic dosing lovenox, ASA Hx of pancreatic cancer with mets to the lung -Discussed consult with Dr. Ghotra. -Pleural fluid cytology and cell block 04/14/2020 showed no malignancy. -Prognosis for this patient will not be determined by his pancreatic cancer as he has an 'indolent' pancreatic cancer and has not had treatment since 2017. Furthermore, recent imaging studies have not shown disease progression and recent pleural fluid cytology is negative for malignancy. -F/u with oncology o/p Left side pleural effusion likely malignant -PleurX cath remains in place -Place on 05/09/20 in [facility] -C/w drainage per CT surgery recommendations CKD Stage 5/ESRD on HD MWF -Permacath being used -Renal diet -C/w HD regularly -Nephrology consulted. Anemia of chronic disease, malignancy -Iron low -Starting aranesp with dialysis -F/u nephro recommendations BPH -Tamsulosin Tobacco abuse -Nicotine patch -Plan: Smoking cessation education GI px -PPI DVT prophylaxis -lovenox therapeutic dosing Resolved issues: Hypokalemia, acute Bigeminy/Trigeminy/nonsustained VT arrhythmia DISPOSITION: Admitted to PCU with Nephrology, CT surgery consulted to follow. Updated Nilsa Acosta and passed on to Dr. Asif that she would like to talk to him as well. Plan is hopefully home at discharge. VS, I&O, 24H, [facility] Vital Signs/I&O Vital Signs Date Time Temp Pulse Resp B/P (MAP) Pulse Ox O2 Delivery O2 Flow Rate FiO2 06/02/20 16:00 98.1 92 18 86/62 (70) 94 Room Air 05/27/20 20:00 I&O- Last 24 Hours up to 6 AM 06/02/20 05:59 Intake Total 720 ml Output Total 775 ml Balance -55 ml Laboratory Data 24H LABS Laboratory Tests 2 06/02/20 07:20: Nucleated Red Blood Cells % (auto) 0.0, Anion Gap 8, Glomerular Filtration Rate 10.6L, Calcium Level 7.8L, Total Bilirubin 0.4, Aspartate Amino Transf (AST/SGOT) 91H, Alanine Aminotransferase (ALT/SGPT) 55, Alkaline Phosphatase 273H, Total Protein 5.2L, Albumin 2.0L, Albumin/Globulin Ratio 0.6 CBC/BMP Laboratory Tests 06/02/20 07:20 Microbiology Microbiology 05/28/20 Urine Culture - Final, Complete Current Medications Current Medications Medications (Trade) Dose Ordered Sig/Dejan Route PRN Reason Start Time Stop Time Status Last Admin Dose Admin Acetaminophen (Tylenol Tab) 650 mg Q6HP PRN PO T > 101.5 or FU 05/27/20 16:45 06/02/20 12:32 Acetaminophen/ Hydrocodone Bitart ([place], Anexsia 5/325) 1 tab Q3H PRN PO MILD PAIN (PS 1-4) 05/27/20 16:45 05/29/20 19:16 DC 05/29/20 12:09 Alteplase, Recombinant (Cathflo Activase) 4 mg ASDIRECTED PRN IV SEE LABEL COMMENTS 05/30/20 09:45 Aspirin (Aspirin Chewable) 81 mg DAILY PO 05/30/20 09:00 06/02/20 07:59 Bisacodyl (Dulcolax Suppository) 10 mg Q4HP PRN NM CONSTIPATION 05/27/20 16:45 Darbepoetin Mert (Aranesp (Dialysis Use)) 100 mcg HD IV 05/31/20 20:00 06/02/20 10:15 Dextrose/Sodium Chloride 1,000 ml @ 75 mls/hr [id number] IV 05/27/20 16:42 05/28/20 07:55 DC 05/27/20 20:08 Docusate Sodium (Colace) 100 mg BID PO 05/27/20 21:00 06/02/20 07:59 Enoxaparin Sodium (Lovenox) 80 mg Q12H SC 05/30/20 11:00 05/30/20 11:25 DC Enoxaparin Sodium (Lovenox) 80 mg Q24H SC 05/30/20 12:00 06/02/20 12:34 Heparin Sodium (Heparin (Flush)) 500 units ASDIRECTED PRN IV SEE LABEL COMMENTS 05/30/20 11:30 Heparin Sodium (Heparin (Flush)) 500 units DAILY IV 05/31/20 09:00 06/02/20 12:32 Heparin Sodium (Heparin) Please refer to ... ASDIRECTED XX 06/02/20 08:00 06/03/20 07:59 Heparin Sodium (Heparin) dose as per volume indica... ASDIRECTED PRN IV SEE LABEL COMMENTS 06/02/20 08:00 06/02/20 20:59 Heparin Sodium (Porcine) (Heparin) 5,000 units Q12H SC 05/27/20 21:00 05/30/20 10:38 DC 05/29/20 21:23 Levalbuterol HCl (Xopenex Neb) 1.25 mg Q2HP PRN NEB WHEEZING 05/27/20 16:45 Levalbuterol HCl (Xopenex Neb) 1.25 mg RQ6H NEB 05/27/20 20:00 06/02/20 07:15 Magnesium Hydroxide (Milk Of Magnesia) 30 ml DAILY PO 05/28/20 09:00 06/02/20 07:59 Metoclopramide HCl (REGLAN INJection) 5 mg Q8H IV 05/31/20 11:00 05/31/20 16:02 DC 05/31/20 11:18 Metoclopramide HCl (REGLAN INJection) 10 mg Q8H IV 05/31/20 19:00 06/02/20 10:45 Midazolam HCl (Versed) 2 mg STAT STAT IV 05/27/20 18:32 05/27/20 19:51 DC Midazolam HCl (Versed) 2 mg STAT STAT IV 05/27/20 18:34 05/27/20 19:51 DC Midodrine (Proamatine) 5 mg 08,12,16 PO 05/28/20 08:00 05/30/20 11:49 DC 05/30/20 07:28 Morphine Sulfate (Morphine Sulfate Inj) 1 mg Q6H PRN IV MODERATE PAIN (PS 5-7) 05/31/20 16:15 Morphine Sulfate (Morphine Sulfate Inj) 3 mg Q3HP PRN IV SEVERE PAIN (PS 8-10) 05/27/20 23:30 06/02/20 10:46 Nicotine (Nicoderm Cq 14mg) 1 patch DAILY TD 05/27/20 09:00 05/29/20 11:02 DC Ondansetron HCl (ZOFRAN INJection) 4 mg Q4HP PRN IV NAUSEA 05/27/20 16:45 05/31/20 13:29 DC 05/31/20 08:44 Ondansetron HCl (ZOFRAN INJection) 8 mg Q4HP PRN IV NAUSEA 05/31/20 13:30 06/01/20 19:54 Oxycodone/ Acetaminophen (Percocet 5mg/ 325mg Tablet) 1 tab Q4H PRN PO MODERATE PAIN (PS 5-7) 05/27/20 16:45 05/29/20 19:16 DC 05/27/20 20:09 Oxycodone/ Acetaminophen (Percocet 5mg/ 325mg Tablet) 2 tab Q4H PRN PO SEVERE PAIN (PS 8-10) 05/27/20 16:45 05/29/20 19:16 DC 05/28/20 20:31 Pantoprazole Sodium (Protonix) 40 mg DAILY PO 05/28/20 09:00 06/02/20 07:59 Promethazine HCl (PHENERGAN INJection) 12.5 mg Q6HP PRN IV NAUSEA 05/31/20 16:15 05/31/20 17:09 Promethazine HCl (Phenergan) 25 mg Q6HP PRN PO NAUSEA 05/31/20 10:30 05/31/20 13:29 DC Sodium Bicarbonate (Sodium Bicarbonate) 650 mg BID PO 05/27/20 21:00 05/30/20 17:03 DC 05/29/20 09:25 Sodium Chloride (Nacl 0.9%) 200 ml ASDIRECTED PRN IV SEE LABEL COMMENTS 06/01/20 21:00 06/02/20 20:59 Sodium Chloride (Saline Lock Flush) 10 ml ASDIRECTED PRN IV SEE LABEL COMMENTS 05/30/20 11:30 Sodium Chloride (Saline Lock Flush) 10 ml DAILY IV 05/31/20 09:00 06/02/20 12:33 Tamsulosin HCl (Flomax) 0.4 mg DAILY PO 05/28/20 09:00 06/02/20 07:59 Allergies Coded Allergies: No Known Allergies (Unverified , 07/27/18) Viktoriya Louie MD Jun 02, 2020 17:49
[2020-06-02] MEDS ORDERED: NS 500 ML IV ONE (18:00)
[2020-06-02 20:00] VITALS: BP 105/56
[2020-06-03] VITALS: BP 96/57
[2020-06-03] MEDS: LEVALBUTEROL 1.25 MG/0.5 ML CONCENTRATE NEB NEB SCH ×4 (01:53→20:18)
[2020-06-03 04:00] VITALS: BP 96/58
[2020-06-03] MEDS: METOCLOPRAMIDE INJ 10MG/2ML VIAL (J2765 PER 1) IV SCH ×3 (04:06→18:06)
[2020-06-03 06:04] LABS: HEMATOCRIT 29.9 % (42.0-52.0); HEMOGLOBIN 9.3 g/dl (13.5-17.5); MEAN CORPUSCULAR HEMOGLOBIN 29.1 pg (27.0-33.0); MEAN CORPUSCULAR HGB CONC 31.1 g/dl (32.0-36.5); MEAN CORPUSCULAR VOLUME 93.4 fl (80.0-96.0); PLATELET COUNT, AUTOMATED 135 10^3/uL (150-450); WHITE BLOOD COUNT 6.1 10^3/uL (4.0-10.0)
[2020-06-03 06:32] LABS: ALBUMIN 1.9 GM/DL (3.2-5.2); BILIRUBIN,TOTAL 0.2 MG/DL (0.2-1.0); CALCIUM LEVEL 7.7 MG/DL (8.8-10.2); CREATININE FOR GFR 4.57 MG/DL (0.70-1.30); GLOMERULAR FILTRATION RATE 13.4 (>42); POTASSIUM SERUM 4.6 MEQ/L (3.5-5.1)
[2020-06-03 08:00] VITALS: BP 108/59
--- NOTE | 2020-06-03 08:31 | REP ---
INDICATION: pneumthx. COMPARISON: Comparison chest x-ray June 02, 2020 and June 01, 2020. TECHNIQUE: Two views.. FINDINGS: Two left-sided chest tubes remain in place. There is a thin sliver of pleural air and pleural thickening along the left lateral chest wall. There is more pleural air visible posteriorly on the lateral film and an air-fluid level is seen in the posterior pleural angle on the left. Overall however, there is a decreased amount pleural air. Bilateral central venous indwelling catheters are again noted and extensive soft tissue extra thoracic emphysema is seen. No new infiltrate is observed. IMPRESSION: Gradually decreasing left-sided hydropneumothorax. Two left chest tubes remain in place.. <Electronically signed by Edwin Wood > 06/03/20 [id number]
[2020-06-03] MEDS: ASPIRIN 81 MG CHEW TABLET PO SCH (08:52)
[2020-06-03] MEDS: TAMSULOSIN 0.4 MG CAP PO SCH (08:52)
[2020-06-03] MEDS: MOM 30ML SUSPENSION UDC PO SCH (08:52)
[2020-06-03] MEDS: PANTOPRAZOLE 40MG TAB (PROTONIX) PO SCH (08:52)
[2020-06-03] MEDS: DOCUSATE SODIUM 100MG CAPSULE PO SCH ×2 (08:53→20:13)
[2020-06-03] MEDS: SODIUM CHLORIDE 0.9% INJ 10 ML SYR IV SCH (08:54)
[2020-06-03] MEDS: MORPHINE 4 MG/ML 1ML VIAL/SYRINGE (J2270) IV PRN (08:54)
--- NOTE | 2020-06-03 10:28 | IPN ---
PROGRESS NOTE DATE: 06/03/2020 SUBJECTIVE: Michele was seen in the PCU. He is under the Hospitalist Service, Dr. Asif is managing his chest tube. He is also being followed by Nephrology. He still has poor p.o. intake. His appetite is poor. He says the food is good, he just does not feel left like eating. Blood pressure is a little better today, 108/59 this morning. No dizziness, lightheadedness or shortness of breath. PHYSICAL EXAMINATION: VITAL SIGNS: Listed. LUNGS: Decreased breath sounds. Left sided chest pain. Decreased breath sounds left base. HEART: Regular rate and rhythm. ABDOMEN: Soft, nontender. EXTREMITIES: No peripheral edema. LABORATORY DATA: Hemoglobin is 9.3, potassium 4.6, creatinine 4.5. Iron studies suggest anemia of chronic inflammation. IMPRESSION: 1. Hypotension. This is improved a bit, received some IV fluids yesterday. He takes Midodrine at home three times a day. 2. Left sided hydropneumothorax. He had a PleurX catheter placed 05/09/2020, developed a hydropneumothorax. He has two chest tubes in place. Dr. Asif is managing those. 3. Hypercoagulable state. Recent AV fistula thrombosis, left Perm-A-Cath thrombosis. Has been seen by Vascular Surgery, on Lovenox and aspirin. 4. Pancreatic cancer metastatic to lung. He has not had treatment since 2017. 5. Endstage renal disease, dialysis per Nephrology. 6. Anemic of chronic inflammation. Hemoglobin is stable.
[2020-06-03] MEDS: ENOXAPARIN 80MG/0.8ML SYRINGE (J1650 PER 10MG) SC SCH (11:43)
[2020-06-03 12:00] VITALS: BP 112/57
[2020-06-03] MEDS ORDERED: NS 500 ML IV ONE (12:15)
--- NOTE | 2020-06-03 12:22 | IPN ---
PROGRESS NOTE DATE: 06/01/2020 Mr. Acosta is breathing fairly well. He is less nauseous today. He still has a rolling air leak. His lung is closer to the chest wall than it has been since he has been admitted to the hospital. His vital signs show a maximum temperature of 98.6 with a heart rate that ranges between 66-95 in a sinus rhythm, respiratory rate of 17-20 without the use of accessory muscles, who is 93%-99% saturated on room air and whose blood pressure is ranging between 100/58 to 119/64. His intake and output for the past 24 hours has been recorded as 1000 in and 1020 out for near equality. He did not undergo hemodialysis yesterday. His weight today is 77.3 kg compared to 76.4 kg yesterday. PHYSICAL EXAMINATION: His left lung shows squeaks and rumbles consistent with air leak. Breath sounds are markedly decreased. Right lung shows normal vesicular sounds. I cannot hear wheezes, rhonchi, or rales. Percussion notes are full to the diaphragm. Cardiac exam is without murmurs, clicks, gallops, or rubs. I cannot feel his point of maximal impulse (PMI). S1 and S2 are normal. Abdomen is soft and nontender. Bowel sounds are positive. There is no hepatomegaly. No costovertebral angle (CVA) tenderness. Extremities show no pretibial edema, no calf tenderness, no differential swelling of the upper extremities. Skin is warm, dry, and perfused without cyanosis or mottling, including that of the nailbeds and knees. Neck is supple. There is no jugular venous distention. Trachea is midline. Mouth shows the mucous membranes to be pink and moist. Lips and commissures without lesions. No thrush. Eyes show his pupils to be equal and reactive. Extraocular motion intact. Sclerae anicteric. Neurologic shows II-XII intact. Normal gross motor, gross sensation intact. Gait is not tested. Psychiatric shows him to be awake, alert, and oriented times three with appropriate mood and affect and conversational. His white count today is 5.9 with a hemoglobin and hematocrit of 9.6 and 30.5, slightly up from yesterday of 9.0 and 29.1. Platelet count is 126 and stable, and differential shows 78% neutrophils, 5% lymphocytes, and 5% monocytes. There are no immature forms or toxic granulations. His chemistries today show normal electrolytes with a BUN and creatinine of 47 and 5.25. Calcium is 7.7. His glucose is 99. His chest x-ray today shows the lung closer to the chest wall that it has been since his admission. Nonetheless, it is still away from the chest wall on the left side. His massive subcutaneous emphysema is still present. Chest tube is in good place. Costophrenic angles are sharp. IMPRESSION: 1. Hydropneumothorax, relieved with a chest tube. 2. Entrapped left lung with residual airspace, better. 3. Alveolar bronchopleural fistula, continuing. 4. Metastatic pancreatic carcinoma to the lung. 5. Bigeminy. 6. Hypokalemia, resolved. 7. Chronic renal disease, requiring dialysis. 8. Tobacco abuse. 9. BPH. 10. Nausea, resolved. PLAN AND DISCUSSION: I will continue his chest tube on - 40 cm of suction. This will probably mean that his air leak will be seemingly greater because of the increased suction. I am fairly convinced that the only way this air leak is going to stop will be to get the lung to the chest wall. If we can do that, we might be able to do a blood patch. We will continue his lung expansion therapy. Observations from yesterday's note have not changed.
--- NOTE | 2020-06-03 12:46 | IPN ---
PROGRESS NOTE DATE: 06/02/2020 I saw Mr. Acosta up in dialysis today. He is resting comfortably and not short of breath at rest. He still has a large air leak, but his chest x-ray shows his lung coming closer to the chest wall. His vital signs show a maximum temperature of 98.3 with a heart rate that ranges between 80-86 with multiple premature ventricular contractions (PVCs). Respiratory rate is constant at 18, and he is 93%-95% saturated on room air, and his blood pressure is ranging between 96/60 to 107/58. His intake and output for the past 24 hours have been recorded as 720 in and 975 out, for a negativity of 255 mL. He is currently being dialyzed. His weight today is 76 kg compared to 77.3 kg yesterday. PHYSICAL EXAMINATION: His left lung shows the squeaks and rattles of his constant air leak. Breath sounds are decreased. Right side shows normal vesicular sounds anteriorly and laterally. I cannot sit him up because he is on dialysis. Cardiac exam is without murmurs, clicks, gallops, or rubs. I cannot feel his point of maximal impulse (PMI). S1 and S2 are normal. Abdomen is soft and nontender. Bowel sounds are positive. There is no hepatomegaly. I cannot test for costovertebral angle (CVA) tenderness. Extremities show no pretibial edema, no calf tenderness, no differential swelling of the upper extremities. Skin is warm, dry, and perfused without cyanosis or mottling, including that of the nailbeds and knees. Neck is supple. There is no jugular venous distention. No subcutaneous emphysema. Trachea is midline. Mouth shows the mucous membranes to be pink and moist. Lips and commissures without lesions. No thrush. Eyes show his pupils to be equal and reactive. Extraocular motion intact. Sclerae anicteric. Neurologic shows II-XII intact. Normal gross motor, gross sensation intact. Gait is not tested. Psychiatric shows him to be awake, alert, and oriented times three. His chest wall has a lot less subcutaneous emphysema. His white count today is 5.5 with a hemoglobin and hematocrit of 9.4 and 29.7, respectively, unchanged from yesterday with a platelet count of 129 and stable. Electrolytes this morning are essentially normal with a BUN and creatinine of 64 and 5.9 prior to dialysis. Calcium is 7.8 with a glucose of 86. AST and ALT are 91 and 55, respectively, with an albumin of 2.0. His chest x-ray, as noted above, shows his lung closer to the chest wall than it was yesterday and certainly from the day before. Subcutaneous emphysema looks to be dissipating. Right costophrenic angles are sharp. There is volume loss on the left side. His lateral film shows a air-fluid level at the bottom of the left chest. Chest tube is in good place. IMPRESSION: 1. Hydropneumothorax, controlled with a chest tube. 2. Entrapped left lung with residual airspace, improving. 3. Alveolar or bronchopleural fistula, continuing. 4. Metastatic carcinoma to the lung. 5. Bigeminy. 6. Hypokalemia, resolved. 7. Chronic renal disease, requiring dialysis. 8. Tobacco abuse. 9. BPH. PLAN AND DISCUSSION: I am somewhat gratified that the lung is even closer to the chest wall than it was yesterday. I noted in my prior notes that we can only have some hope for this bronchopleural fistula to resolve if we can get the lung to the chest wall. I will therefore continue suction on 40, realizing that it exacerbates the air leak.
[2020-06-03] MEDS: MORPHINE 2 MG/ML 1ML VIAL (J2270) IV PRN (15:55)
[2020-06-03 16:00] VITALS: BP 114/66
[2020-06-03 20:00] VITALS: BP 102/61
--- NOTE | 2020-06-03 20:39 | IPNPDOC ---
Subjective Date Seen The patient was seen on 06/03/20. Subjective Chief Complaint/HPI Pt was evaluated at bedside. Pt and nursing staff deny any overnight events. General: Denies: ROS Unobtainable, Chills, Night Sweats, Fatigue, Malaise, Normal Appetite, Other Symptoms Constitutional: Denies: Chills, Fever, Malaise, Night Sweats, Weakness, Fatigue, Weight Loss, Lethargy, Other Cardiovascular: Denies: Chest Pain, Palpitations, Orthopnea, Paroxysmal Noc. Dyspnea, Edema, Lt Headedness, Other Symptoms Objective Physical Examination General Exam: Positive: Alert, Cooperative, Mild Distress ENT Exam: Positive: Other ENT (oral mucosa dry) Chest Exam: Positive: Diminished (left-sided, pt has chest tube placed on left) Heart Exam: Positive: Rate Normal, Regular Rhythm, Normal S1, Normal S2 Abdomen Exam: Positive: Normal bowel sounds, Soft; Negative: Tenderness Extremity Exam: Negative: Edema Assessment /Plan Assessment # ESRD: Pt scheduled to be dialyzed tomorrow. Pt is clinically dry, so minimal fluid will be removed tomorrow. IVF have been ordered for pt today. Pt was also encouraged to increase oral hydration. # Anemia of chronic disease (ESRD and malignancy): Continue Aranesp administration during HD. # Persistent left-sided hydropneumothorax: Patient has a chest tube. Follow management per CT surgery. Most likely secondary to metastasis to lungs. # Metastatic pancreatic cancer: Poor prognosis. Pt is not receiving chemotherapy at this time. Management per recommendations from Hem/Onc. # Hypercoagulable state: Continue current dose of Lovenox. Plan/VTE VTE Prophylaxis Ordered?: Yes (Pt is on Lovenox) GME ATTESTATION My faculty preceptor for this patient encounter was physically present during the encounter and was fully available. All aspects of the patient interview, examination, medical decision making process, and medical care plan development were reviewed and approved by the faculty preceptor. The faculty preceptor is aware and concurs with the plan as stated in the body of this note and will attest to such by his/her cosignature. VS, I&O, 24H, Fishbone Vital Signs/I&O Vital Signs Date Time Temp Pulse Resp B/P (MAP) Pulse Ox O2 Delivery O2 Flow Rate FiO2 06/03/20 16:39 18 Room Air 06/03/20 16:00 98.1 76 114/66 (82) 93 I&O- Last 24 Hours up to 6 AM 06/03/20 06:00 Intake Total 740 ml Output Total 1480 ml Balance -740 ml Laboratory Data 24H LABS Laboratory Tests 2 06/03/20 05:50: Nucleated Red Blood Cells % (auto) 0.0, Anion Gap 9, Glomerular Filtration Rate 13.4L, Calcium Level 7.7L, Total Bilirubin 0.2, Aspartate Amino Transf (AST/SGOT) 41H, Alanine Aminotransferase (ALT/SGPT) 36, Alkaline Phosphatase 2 20H, Total Protein 5.0L, Albumin 1.9L, Albumin/Globulin Ratio 0.6 CBC/BMP Laboratory Tests 06/03/20 05:50 Microbiology Microbiology 05/28/20 Urine Culture - Final, Complete Attending Note Attending Note ESRD Persistent Lt sided hydrothorax Ca Pancreas with Mets. Cancer cachexia Anemia in ESRD and Malignancy Cont TIW HD with minimal fluid removal, Cont LUDIN. Lt sided chest tube to suction as per CT surgery. Shorty Skelton DO Jun 03, 2020 20:39 LONG SKELTON MD Jun 06, 2020 22:43
[2020-06-04] VITALS: BP 101/58
[2020-06-04] MEDS: LEVALBUTEROL 1.25 MG/0.5 ML CONCENTRATE NEB NEB SCH ×4 (02:00→21:46)
[2020-06-04] MEDS: METOCLOPRAMIDE INJ 10MG/2ML VIAL (J2765 PER 1) IV SCH ×4 (02:26→20:10)
[2020-06-04 04:00] VITALS: BP 107/57
[2020-06-04 04:48] LABS: HEMATOCRIT 31.6 % (42.0-52.0); HEMOGLOBIN 9.5 g/dl (13.5-17.5); MEAN CORPUSCULAR HEMOGLOBIN 29.1 pg (27.0-33.0); MEAN CORPUSCULAR HGB CONC 30.1 g/dl (32.0-36.5); MEAN CORPUSCULAR VOLUME 96.9 fl (80.0-96.0); PLATELET COUNT, AUTOMATED 150 10^3/uL (150-450); RED BLOOD COUNT 3.26 10^6/uL (4.30-6.10); WHITE BLOOD COUNT 6.1 10^3/uL (4.0-10.0)
[2020-06-04] MEDS: ASPIRIN 81 MG CHEW TABLET PO SCH ×2 (05:44→09:56)
[2020-06-04 06:36] LABS: CALCIUM LEVEL 7.6 MG/DL (8.8-10.2); CREATININE FOR GFR 5.08 MG/DL (0.70-1.30); GLOMERULAR FILTRATION RATE 11.8 (>42); PHOSPHORUS LEVEL 4.6 MG/DL (2.5-4.9); POTASSIUM SERUM 4.6 MEQ/L (3.5-5.1)
[2020-06-04] MEDS ORDERED: SODIUM CHLORIDE 0.9% 1000ML IV PRN (07:00)
[2020-06-04 08:00] VITALS: BP 104/62
--- NOTE | 2020-06-04 08:21 | REP ---
INDICATION: pneumthx. COMPARISON: Comparison study June 03, 2020. TECHNIQUE: Two views.. FINDINGS: Two left chest tubes remain in place. Left pleural thickening and some residual pneumothorax again seen predominantly posteriorly. This is essentially unchanged. There is an air-fluid level in the posterior lung gutter. Extra thoracic soft tissue emphysema is seen diffusely and bilaterally. Bilateral central venous lines are again noted unchanged. There is a linear opacity in the right perihilar region which is unchanged. Discoid atelectasis is noted in the right base. No new infiltrate. IMPRESSION: Findings essentially unchanged from the previous day's study. Left-sided hydropneumothorax. Discoid atelectasis right base.. <Electronically signed by Edwin Wood > 06/04/20 0119
--- NOTE | 2020-06-04 08:57 | IPN ---
PROGRESS NOTE DATE: 06/03/2020 SUBJECTIVE: Mr. Acosta still has his large air leak; however, his x-ray shows his lung very close to the chest wall, much closer than it has ever been, and improved over yesterday. He is breathing well and his pain is being fairly well-controlled with Percocet and occasional morphine. OBJECTIVE: VITAL SIGNS: Show a T-max of 99.0 with a heart rate that ranges between 52 and 83 with multiple PVCs. Respiratory rate varies between 16 to 20 with saturations of 93% to 100% on room air. Blood pressure is ranging between 114/66 and 96/57. INTAKE AND OUTPUT: Over the past 24 hours has been recorded as 620 in and 1850 out for a negativity of 1230 mL. He has put out 700 mL from the chest tube, however. This has not abated over the last three days. Weight today is 78.7 kg compared to 76 kg yesterday. He has had 450 mL of urine. He also had 700 mL taken off from dialysis. RESPIRATORY: He has squeaks and rattles consistent with large air leak on the left side. On the right side, he has normal vesicular sounds with a percussion note that is full to the diaphragm on either side. His subcutaneous emphysema is much less on both sides. CARDIAC: Without murmurs, clicks, gallops, or rubs. I cannot feel his PMI. S1 and S2 are normal. ABDOMEN: Soft and nontender. Bowel sounds are positive. There is no hepatomegaly. No CVA tenderness. EXTREMITIES: Show no pretibial edema. No calf tenderness. No differential swelling of the upper extremities. SKIN: Warm, dry, and perfused without cyanosis or mottling, including that of the nail beds and knees. NECK: Supple. There is no jugular venous distention. No subcutaneous emphysema. Trachea is midline. MOUTH: Shows the mucous membranes to be pink and moist. Lips and gums without lesions and no thrush. EYES: Show his pupils equal and reactive. Extraocular movements are intact. Sclerae nonicteric. NEUROLOGIC: Shows II through XII intact. Normal gross motor, gross sensation intact. Gait is not tested. PSYCHIATRIC: Shows him to be awake and alert. LABORATORY DATA: His white count today is 6.1 with hemoglobin and hematocrit of 9.3 and 29.9 respectively, unchanged from yesterday, with a platelet count of 135,000. There is no differential on him. His chemistries show normal electrolytes with BUN and creatinine of 48 and 4.57 after dialysis yesterday. Glucose is 102 with a calcium of 7.7 and corresponding albumin of 1.9. IMAGING STUDIES: His chest x-ray today as noted above shows improvement in the position of the lung being much closer to the chest wall. There is a vague opacity in the left lower lobe. Subcutaneous emphysema looks to be dissipating. Chest tube is in good place. IMPRESSION: 1. Hydropneumothorax controlled with a chest tube. 2. Entrapped lung improving with residual air space. 3. Alveolar or bronchopleural fistula continuing. 4. Metastatic carcinoma of the lung. 5. Bigeminy. 6. Chronic renal disease requiring dialysis. 7. Tobacco abuse. 8. BPH. PLAN AND DISCUSSION: I am again gratified that his lung looks to be closer to the chest wall than it has been. I will keep him on -40 cm of suction; again, realizing that it may exacerbate the air leak. If we can get the lung to the chest wall, I will then repeat a CT scan and undertake a blood patch.
--- NOTE | 2020-06-04 09:41 | REP ---
INDICATION: BPF. Entrapped lung, air leak, bronchopleural fistula. COMPARISON: Most recent comparison chest CT studies are 29 May 2020, 20 March 2020, and 03 December 2019.. TECHNIQUE: Helical scanning is acquired. 3 mm axial images are generated. Coronal and sagittal MPR and coronal MIP images are generated. FINDINGS: Two left chest tubes remain in place both terminating in the posterior pleural space. Persistent left-sided hydropneumothorax is again seen. There is some improvement in aeration of the left lung in the interval since the most recent prior study of 29 May 2020. Persistent subpleural areas of parenchymal opacity are observed in the left lung essentially unchanged. There are cavitary spiculated nodules in the right lung as before. Circumferential extra thoracic soft tissue emphysema is seen extending up into the neck bilaterally and into the upper abdomen. Pericolonic soft tissue emphasis again seen as before along with a previously noted pneumobilia. No pericardial effusion is seen. There is pneumomediastinum. There is a right-sided internal jugular central venous line terminating in the superior vena cava. Left internal jugular central venous line terminates in the brachiocephalic vein at the midline. No endobronchial disease is seen. IMPRESSION: There is slightly improved aeration in the left lung. Otherwise there is very little change when compared to the 29 May 2020 study. <Electronically signed by Edwin Wood > 06/04/20 0937
[2020-06-04] MEDS: SODIUM CHLORIDE 0.9% INJ 10 ML SYR IV SCH (09:56)
[2020-06-04] MEDS: MOM 30ML SUSPENSION UDC PO SCH (09:56)
[2020-06-04] MEDS: TAMSULOSIN 0.4 MG CAP PO SCH (09:57)
[2020-06-04] MEDS: DOCUSATE SODIUM 100MG CAPSULE PO SCH ×2 (09:57→20:10)
[2020-06-04] MEDS: PANTOPRAZOLE 40MG TAB (PROTONIX) PO SCH (09:57)
--- NOTE | 2020-06-04 10:02 | IPN ---
PROGRESS NOTE DATE: 05/27/2020 SUBJECTIVE: Michele was dizzy this morning. He got up to go to the bathroom and he felt lightheaded and dizzy. The same thing occurred when he was down getting his chest x-ray. No vertigo, more of a lightheaded feeling. It is better now. PHYSICAL EXAMINATION: VITAL SIGNS: Blood pressure 104/62, pulse 93. HEENT: No nystagmus. LUNGS: Decreased breath sounds on the left, clear on the right. HEART: rhythm. ABDOMEN: Soft, nontender. EXTREMITIES: No peripheral edema. LABORATORY DATA: CBC unremarkable. Potassium 4.6, creatinine 5. IMPRESSION: 1. Hydropneumothorax with chest tube: Being managed by Dr. Asif, he plans a blood patch if lung can fully expand. 2. Metastatic carcinoma lung: Poor prognosis. 3. End-stage renal disease: Requiring dialysis per nephrology. 4. Anemia of chronic disease: Probably contributing to the dizziness. This is being managed by nephrology. 5. Dizziness: Probably orthostasis. No sign of vestibular problem. 6. Hypercoagulable state: Continue with his Lovenox.
[2020-06-04] MEDS: ENOXAPARIN 80MG/0.8ML SYRINGE (J1650 PER 10MG) SC SCH (11:56)
[2020-06-04 12:00] VITALS: BP 107/67
--- NOTE | 2020-06-04 12:26 | IPN ---
PROGRESS NOTE DATE: 06/04/2020 SUBJECTIVE: Mr. Acosta still has a rolling air leak. He is breathing well and his subcutaneous emphysema is clinically better. Nevertheless, it is still rolling. I have therefore turned his suction down to 20 cm of water. His chest x-ray continues to show that he has a small pneumothorax, but it is much better than it has been. OBJECTIVE: VITAL SIGNS: Show a T-max of 98.4 with a heart rate that ranges between 80 and 93 with multiple PVCs. Respiratory rate of 16 to 20 without the use of accessory muscles. He was 92% to 93% saturated on room air and his blood pressure is ranging between 108/58 to 107/57. INTAKE AND OUTPUT: Over the past 24 hours has been recorded as 1100 in and 630 out for a positivity of 670 mL. He has put 480 mL out the chest tube. He is due for dialysis today. Weight today is 78.7 kg, which is the same as yesterday. RESPIRATORY: His right lung shows nearly normal vesicular sounds with a full percussion note. The left lung shows squeaks and rattles consistent with his large air leak. He also has decreased underlying breath sounds. CARDIAC: Without murmurs, clicks, gallops, or rubs. I cannot feel his PMI. S1 and S2 are normal. ABDOMEN: Soft and nontender. Bowel sounds are positive. There is no hepatomegaly. No CVA tenderness. EXTREMITIES: Show no pretibial edema. No calf tenderness. No differential swelling of the upper extremities. SKIN: Warm, dry, and perfused without cyanosis or mottling, including that of the nail beds and knees. NECK: Supple. There is no jugular venous distention. No subcutaneous emphysema. Trachea is midline. MOUTH: Shows the mucous membranes to be pink and moist. Lips and gums without lesions and no thrush. EYES: Show his pupils equal and reactive. Extraocular movements are intact. Sclerae nonicteric. NEUROLOGIC: Shows II through XII intact. Normal gross motor, gross sensation intact. Gait is not tested. PSYCHIATRIC: Shows him to be awake and alert, but a bit frustrated and despondent. DIAGNOSTIC STUDIES: His white count today is 6.1 with a hemoglobin and hematocrit of 9.5 and 31.6, essentially unchanged from yesterday, with a platelet count of 150,000. Chemistries show normal electrolytes with a BUN and creatinine of 57 and 5.08. He is due for dialysis today. Glucose is 93 with a calcium of 7.6 and a corresponding albumin of 2.0. His chest x-ray is essentially unchanged from yesterday, but with the lung looking to be almost applied to the chest wall. The left lower lobe opacity is starting to clear. There are two air fluid levels over the stomach and I think one represents a pleural air fluid level where as the other represents a gastric bubble. I did obtain a CT of his chest today. Due to the fluid level on the chest x-ray belies that the lung is not fully adjacent to the diaphragm inferiorly. He still has his cavitary masses and more solid masses and/or consolidation preventing the lung from expanding. He looks to still have a rind over the lung. Chest tube is in good place. I do not see any convincing CT evidence of a bronchopleural fistula between the cavitary mass and the surface of the lung. Even if there was one, I do not think resolution of the CT scan would be sufficient to uncover that. IMPRESSION: 1. Hydropneumothorax controlled with a chest tube. 2. Entrapped lung, improving but with residual airspace. 3. Alveolar or bronchopleural fistula continuing. 4. Metastatic carcinoma to the lung with primary being pancreatic. 5. Bigeminy. 6. Chronic renal disease requiring dialysis. 7. Tobacco abuse. 8. BPH. PLAN AND DISCUSSION: I am still between a rock and a hard place with regard to his bronchopleural fistula. I will continue his chest tube on suction, but I will decrease the suction today down to -20. Three or four days ago, I did not even expect the lung to expand to where it is and perhaps, there will be more expansion to the chest wall to control this bronchopleural fistula.
[2020-06-04] MEDS: MORPHINE 2 MG/ML 1ML VIAL (J2270) IV PRN (13:25)
[2020-06-04] MEDS: SODIUM CHLORIDE 0.9% INJ 10 ML SYR IV PRN (13:25)
--- NOTE | 2020-06-04 15:04 | IPNPDOC ---
Subjective Date Seen The patient was seen on 06/04/20. Subjective Chief Complaint/HPI Pt and nursing staff deny any overnight events. Pt states that he feels dizzy when sits upright or stands. He is worried about going to dialysis today. General: Reports: Other Symptoms (reports orthostatic dizziness); Denies: ROS Unobtainable, Chills, Night Sweats, Fatigue, Malaise, Normal Appetite Constitutional: Reports: Other; Denies: Chills, Fever, Malaise, Night Sweats, Weakness, Fatigue, Weight Loss, Lethargy Pulmonary: Denies: Dyspnea, Cough, Pleuritic Chest Pain, Other Symptoms Objective Physical Examination General Exam: Positive: Alert, Cooperative, Mild Distress ENT Exam: Positive: Other ENT (oral mucosa dry, bitemporal wasting, sunken eyes) Chest Exam: Positive: Diminished (left-sided, pt has chest tube placed on left) Heart Exam: Positive: Rate Normal, Regular Rhythm, Normal S1, Normal S2 Abdomen Exam: Positive: Normal bowel sounds, Soft; Negative: Tenderness Extremity Exam: Negative: Edema Assessment /Plan Assessment # ESRD: Pt scheduled to be dialyzed today. Pt is clinically dry, so minimal fluid will be removed today. IVF have been ordered for pt today. Pt was also encouraged to increase oral hydration. # Anemia of chronic disease (ESRD and malignancy): Continue Aranesp administration during HD. # Persistent left-sided hydropneumothorax: Patient has a chest tube. Follow management per CT surgery. Most likely secondary to metastasis to lungs. # Metastatic pancreatic cancer: Poor prognosis. Pt is not receiving chemotherapy at this time. Management per recommendations from Hem/Onc. # Hypercoagulable state: Continue current dose of Lovenox. Plan/VTE VTE Prophylaxis Ordered?: Yes (Pt is on Lovenox) GME ATTESTATION My faculty preceptor for this patient encounter was physically present during the encounter and was fully available. All aspects of the patient interview, examination, medical decision making process, and medical care plan development were reviewed and approved by the faculty preceptor. The faculty preceptor is aware and concurs with the plan as stated in the body of this note and will attest to such by his/her cosignature. VS, I&O, 24H, Fishbone Vital Signs/I&O Vital Signs Date Time Temp Pulse Resp B/P (MAP) Pulse Ox O2 Delivery O2 Flow Rate FiO2 06/04/20 13:25 20 Room Air 06/04/20 12:00 97.4 93 107/67 (80) 96 I&O- Last 24 Hours up to 6 AM 06/04/20 05:59 Intake Total 1040 ml Output Total 905 ml Balance 135 ml Laboratory Data 24H LABS Laboratory Tests 2 06/04/20 04:36: Nucleated Red Blood Cells % (auto) 0.5H, Anion Gap 11, Glomerular Filtration Rate 11.8L, Calcium Level 7.6L, Phosphorus Level 4.6, Albumin 2.0L CBC/BMP Laboratory Tests 06/04/20 04:36 Microbiology Microbiology 05/28/20 Urine Culture - Final, Complete Attending Note Attending Note ESRD on HD Metastatic pancreatic Ca Lt sided hydropneumothorax anemia in ESRd Cancer Cachexia. HD as per regular schedule. Minimal fluid removal. Cont LUDIN. Chest tube management as per CT surgery. Shorty Skelton DO Jun 04, 2020 15:04 LONG SKELTON MD Jun 10, 2020 13:32
[2020-06-04] MEDS ORDERED: FLEET OIL RETENTION ENEMA PR ONE (16:00)
[2020-06-04 16:52] VITALS: BP 94/67
[2020-06-04] MEDS ORDERED: NS 250 ML IV ONE (19:45)
[2020-06-04 20:00] VITALS: BP 98/50
[2020-06-04] MEDS: BISACODYL 10 MG SUPP PR PRN (20:10)
--- NOTE | 2020-06-04 22:32 | ECGEPIP ---
[facility] Test Date: 2020-06-04 Pat Name: LORENZA MENDEZ Department: Room: [place] [address] Gender: Male [employer]: gabby : 1945 Requested By: Shahzad Mckeon Order Number: [id number] Reading MD: Graham Silva Measurements Intervals [place] Rate: 90 P: VT: QRS: -6 QRSD: 82 T: 34 QT: 342 QTc: 418 Interpretive Statements Atrial fibrillation with premature ventricular complex Low Precordial voltages Nonspecific T wave abnormality No longer in sinus rhythm Compared with 05/27/2020. Electronically Signed on 06-04-2020 22:31:57 EST by Graham Silva
[2020-06-05] VITALS (9 sets, daily range): BP systolic 72–122; BP diastolic 50–64
[2020-06-05] MEDS: LEVALBUTEROL 1.25 MG/0.5 ML CONCENTRATE NEB NEB SCH ×4 (02:00→20:55)
[2020-06-05] MEDS ORDERED: NS 250 ML IV ONE (05:00)
[2020-06-05 06:48] LABS: HEMATOCRIT 28.8 % (42.0-52.0); HEMOGLOBIN 9.1 g/dl (13.5-17.5); MEAN CORPUSCULAR HEMOGLOBIN 29.7 pg (27.0-33.0); MEAN CORPUSCULAR HGB CONC 31.6 g/dl (32.0-36.5); MEAN CORPUSCULAR VOLUME 94.1 fl (80.0-96.0); PLATELET COUNT, AUTOMATED 152 10^3/uL (150-450); RED BLOOD COUNT 3.06 10^6/uL (4.30-6.10); WHITE BLOOD COUNT 6.2 10^3/uL (4.0-10.0)
[2020-06-05 07:10] LABS: ALBUMIN 1.8 GM/DL (3.2-5.2); CALCIUM LEVEL 7.6 MG/DL (8.8-10.2); CREATININE FOR GFR 3.9 MG/DL (0.70-1.30); PHOSPHORUS LEVEL 2.7 MG/DL (2.5-4.9); POTASSIUM SERUM 4.3 MEQ/L (3.5-5.1)
--- NOTE | 2020-06-05 08:16 | REP ---
INDICATION: pneumthx COMPARISON: 06/04/2020 TECHNIQUE: PA and lateral. FINDINGS: Lines and tubes are in stable position including 2 left-sided chest tubes. Moderate left sided hydropneumothorax along with bilateral airspace disease again noted and relatively unchanged. Diffuse subcutaneous emphysema unchanged. No new acute process appreciated. IMPRESSION: No significant change from prior examination. <Electronically signed by David Green > 06/05/20 0863
[2020-06-05] MEDS: MOM 30ML SUSPENSION UDC PO SCH (08:35)
[2020-06-05] MEDS: TAMSULOSIN 0.4 MG CAP PO SCH (08:36)
[2020-06-05] MEDS: PANTOPRAZOLE 40MG TAB (PROTONIX) PO SCH (08:36)
[2020-06-05] MEDS: SODIUM CHLORIDE 0.9% INJ 10 ML SYR IV SCH (08:36)
[2020-06-05] MEDS: DOCUSATE SODIUM 100MG CAPSULE PO SCH ×2 (08:36→20:00)
--- NOTE | 2020-06-05 09:39 | IPN ---
PROGRESS NOTE DATE: 06/05/2020 SUBJECTIVE: Michele went into atrial fibrillation yesterday, his rate was controlled. We did an EKG and it confirmed this. He is already on therapeutic anticoagulation with 80 mg a day of Lovenox. His blood pressure has been intermittently low, 72/50 overnight, 105/60 this morning. PHYSICAL EXAMINATION: GENERAL APPEARANCE: He is lying in bed, he is in no distress whatsoever. LUNGS: Clear. HEART: Regular rate and rhythm, rate around 90. ABDOMEN: Soft, nontender, no masses. EXTREMITIES: Trace peripheral edema, chest tube left side. LABORATORY DATA: White count 6.2, hemoglobin 9.1, platelets 152,000, sodium 137, potassium 4.3. BUN 40, creatinine 3.9. Chest x-ray today is unchanged. EKG shows atrial fibrillation, no ischemia. IMPRESSION: 1. Atrial fibrillation, he has controlled ventricular response. He is already anticoagulated, he has multiple medical problems that are more significant than his atrial fibrillation. As long as his rate remains controlled I do not think he needs any specific intervention towards this. 2. Endstage renal disease, dialysis per Nephrology. 3. Anemia of chronic disease, endstage renal disease and malignancy. He gets Aranesp during dialysis. 4. Left sided hydropneumothorax, chest tube per Dr. Asif. 5. Metastatic pancreatic cancer, poor prognosis. No chemotherapy at this time. 6. Hypercoagulable state. He is already on full-dose Lovenox. 7. Hypotension. His blood pressure is improved today. He is on no medicines that should contribute to hypotension. He is on Flomax but on rare occasion can cause orthostasis. I am going to discontinue the Flomax for now to see if that helps some with his intermittent hypotension spells.
[2020-06-05] MEDS: METOCLOPRAMIDE INJ 10MG/2ML VIAL (J2765 PER 1) IV SCH ×2 (11:53→19:09)
[2020-06-05] MEDS: ENOXAPARIN 80MG/0.8ML SYRINGE (J1650 PER 10MG) SC SCH (11:54)
--- NOTE | 2020-06-05 12:21 | IPN ---
PROGRESS NOTE DATE: 06/05/2020 SUBJECTIVE: Mr. Acosta still has his air leak, although it looks to be less; but I suspect it is less because the suction has been turned down to -20. He has a little bit more subcutaneous emphysema on chest x-ray, but not clinically. OBJECTIVE: VITAL SIGNS: Show a T-max of 97.8 with a heart rate that ranges between 85 and 108 in a sinus rhythm. Respiratory rate of 18 to 20 without the use of accessory muscles who is 95% to 96% saturated on room air. His blood pressure is ranging between 105/60 to 72/50. INTAKE AND OUTPUT: Over the past 24 hours has been recorded as 360 in and 615 out for a negativity of 255 mL. Nothing was removed yesterday at hemodialysis and he has put out 515 mL in the chest tube. He still has the rolling air leak, although not as big as it was yesterday when he was on -40 cm of suction. His weight today is 77.5 kg compared to 78.7 kg yesterday. RESPIRATORY: His lungs show the squeaks and rumbles of his air leak on the left side. The right side shows normal vesicular sounds. Percussion notes are full to the diaphragm. CARDIAC: Without murmurs, clicks, gallops, or rubs. I cannot feel his PMI. S1 and S2 are normal. ABDOMEN: Soft and nontender. Bowel sounds are positive. There is no hepatomegaly. No CVA tenderness. EXTREMITIES: Show no pretibial edema. No calf tenderness. No differential swelling of the upper extremities. SKIN: Warm, dry, and perfused without cyanosis or mottling, including that of the nail beds and knees. NECK: Supple. There is no jugular venous distention. No subcutaneous emphysema. Trachea is midline. MOUTH: Shows his mucous membranes to be pink and moist. Lips and gums without lesions and no thrush. EYES: Show his pupils equal and reactive. Extraocular movements are intact. Sclerae nonicteric. NEUROLOGIC: Shows II through XII intact. Normal gross motor, gross sensation intact. Gait is not tested. PSYCHIATRIC: Shows him to be awake, alert, and oriented x3 with appropriate mood and affect and conversational. DIAGNOSTIC STUDIES: His white count today is 6.2 with a hemoglobin and hematocrit of 9.1 and 28.8 slightly less than 9.5 and 31.6 yesterday, platelet count is 152,000. Chemistries show normal electrolytes with a BUN and creatinine of 40 and 3.90 after dialysis yesterday. Calcium is 7.6 with a phosphorus of 2.7 and an albumin of 1.8. DIAGNOSTIC IMAGING: His chest x-ray as noted above shows an increase in his subcutaneous emphysema on both the right and left sides. Lateral x-ray also shows more subcutaneous emphysema just above the sternum. Chest tube looks to be in good place. The lung is a little bit further from the chest wall than it was yesterday. IMPRESSION: 1. Hydropneumothorax controlled with chest tube. 2. Alveolopleural fistula continuing. 3. Entrapped lung with residual airspace. 4. Metastatic carcinoma to the lung with primary being pancreatic with cavitary lesions in the lung. 5. Bigeminy. 6. Chronic renal disease requiring dialysis. 7. Tobacco abuse. 8. BPH. 9. New onset atrial fibrillation. PLAN AND DISCUSSION: As noted in numerous previous notes, this is a very difficult situation with regards to his bronchopleural fistula. I am just waiting for it to close spontaneously. I dare not take him to the operating room as there is no much I am going to be able to do to close this fistula. I was hoping that the lung would go to the chest wall so that he might respond to a blood patch. The origin of the leak are either iatrogenic with puncture of the lung during the PleurX placement or a bronchopleural fistula from one of the cavitary lesions in his lung. I think the latter is more likely at this point in time considering the size of the air leak and its persistence. A lung puncture would be expected to heal within days.
--- NOTE | 2020-06-05 13:29 | IPNPDOC ---
Subjective Date Seen The patient was seen on 06/05/20. Subjective Chief Complaint/HPI Pt and nursing staff do not report any overnight events at this time. General: Denies: ROS Unobtainable, Chills, Night Sweats, Fatigue, Malaise, Normal Appetite, Other Symptoms Constitutional: Denies: Chills, Fever, Malaise, Night Sweats, Weakness, Fatigue, Weight Loss, Lethargy, Other Pulmonary: Denies: Dyspnea, Cough, Pleuritic Chest Pain, Other Symptoms Objective Physical Examination General Exam: Positive: Alert, Cooperative, Mild Distress ENT Exam: Positive: Other ENT (oral mucosa dry, bitemporal wasting, sunken eyes) Chest Exam: Positive: Diminished (left-sided, pt has chest tube placed on left) Heart Exam: Positive: Rate Normal, Regular Rhythm, Normal S1, Normal S2 Abdomen Exam: Positive: Normal bowel sounds, Soft; Negative: Tenderness Extremity Exam: Negative: Edema Assessment /Plan Assessment # ESRD: Pt scheduled to be dialyzed tomorrow. Pt is clinically dry, so minimal fluid will be removed. IVF have been ordered for pt by primary care team today. Pt was also encouraged to increase oral hydration. # Anemia of chronic disease (ESRD and malignancy): Continue Aranesp administration during HD. # Persistent left-sided hydropneumothorax: Patient has a chest tube. Follow management per CT surgery. Most likely secondary to metastasis to lungs. # Metastatic pancreatic cancer: Poor prognosis. Pt is not receiving chemotherapy at this time. Management per recommendations from Hem/Onc. # Hypercoagulable state: Continue current dose of Lovenox. Plan/VTE VTE Prophylaxis Ordered?: Yes (Pt is on Lovenox) GME ATTESTATION My faculty preceptor for this patient encounter was physically present during the encounter and was fully available. All aspects of the patient interview, examination, medical decision making process, and medical care plan development were reviewed and approved by the faculty preceptor. The faculty preceptor is aware and concurs with the plan as stated in the body of this note and will attest to such by his/her cosignature. VS, I&O, 24H, Fishbone Vital Signs/I&O Vital Signs Date Time Temp Pulse Resp B/P (MAP) Pulse Ox O2 Delivery O2 Flow Rate FiO2 06/05/20 12:00 97.5 72 20 100/58 (72) 94 Room Air I&O- Last 24 Hours up to 6 AM 06/05/20 06:00 Intake Total 1220 ml Output Total 300 ml Balance 920 ml Laboratory Data 24H LABS Laboratory Tests 2 06/05/20 06:15: Nucleated Red Blood Cells % (auto) 0.5H, Anion Gap 6L, Glomerular Filtration Rate 16.0L, Calcium Level 7.6L, Phosphorus Level 2.7#, Albumin 1.8L CBC/BMP Laboratory Tests 06/05/20 06:15 Microbiology Microbiology 05/28/20 Urine Culture - Final, Complete Attending Note Attending Note ESRD on HD Pancreatic cancer Lt sided hydropneumothorax Anemia in ESRD No fluid removal with TIW HD. No chemo at this time. Chest tube management as per CT surgery. 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 Cont Augustina Shorty Skelton DO Jun 05, 2020 13:29 LONG SKELTON MD Jun 10, 2020 13:57
[2020-06-06] VITALS (7 sets, daily range): BP systolic 91–133; BP diastolic 55–84
[2020-06-06] MEDS: LEVALBUTEROL 1.25 MG/0.5 ML CONCENTRATE NEB NEB SCH ×4 (02:00→20:00)
[2020-06-06] MEDS: METOCLOPRAMIDE INJ 10MG/2ML VIAL (J2765 PER 1) IV SCH ×3 (03:56→19:00)
[2020-06-06 04:26] LABS: HEMATOCRIT 30.4 % (42.0-52.0); HEMOGLOBIN 8.9 g/dl (13.5-17.5); MEAN CORPUSCULAR HEMOGLOBIN 28.7 pg (27.0-33.0); MEAN CORPUSCULAR HGB CONC 29.3 g/dl (32.0-36.5); MEAN CORPUSCULAR VOLUME 98.1 fl (80.0-96.0); PLATELET COUNT, AUTOMATED 169 10^3/uL (150-450); WHITE BLOOD COUNT 6.6 10^3/uL (4.0-10.0)
[2020-06-06 04:51] LABS: ALBUMIN 1.8 GM/DL (3.2-5.2); CALCIUM LEVEL 7.3 MG/DL (8.8-10.2); CREATININE FOR GFR 4.78 MG/DL (0.70-1.30); GLOMERULAR FILTRATION RATE 12.7 (>42); POTASSIUM SERUM 4.5 MEQ/L (3.5-5.1)
--- NOTE | 2020-06-06 08:02 | REP ---
INDICATION: pneumthx COMPARISON: 06/05/2020 TECHNIQUE: PA and lateral. FINDINGS: Allowing for variation in technique, examination is essentially unchanged. Left-sided hydropneumothorax with 2 chest tubes are again noted along with scattered bilateral airspace disease and subcutaneous emphysema. IMPRESSION: No significant change from prior examination. <Electronically signed by David Green > 06/06/20 [id number]
[2020-06-06] MEDS: PANTOPRAZOLE 40MG TAB (PROTONIX) PO SCH (09:24)
[2020-06-06] MEDS: ASPIRIN 81 MG CHEW TABLET PO SCH (09:24)
[2020-06-06] MEDS: MOM 30ML SUSPENSION UDC PO SCH (09:24)
[2020-06-06] MEDS: DOCUSATE SODIUM 100MG CAPSULE PO SCH ×2 (09:24→21:21)
[2020-06-06] MEDS: SODIUM CHLORIDE 0.9% INJ 10 ML SYR IV SCH (09:25)
--- NOTE | 2020-06-06 10:57 | IPN ---
PROGRESS NOTE DATE: 06/06/2020 SUBJECTIVE: No change in Michele's clinical status. Denies any new symptoms overnight. He is to be dialyzed today. Chest tube management is still by Dr. Asif. PHYSICAL EXAMINATION: VITAL SIGNS: Per flow sheet. HEENT: Unremarkable. LUNGS: Chest tube left side. Right lung clear. HEART: Regular rate and rhythm. ABDOMEN: Soft, nontender, trace peripheral edema. IMPRESSION: 1. 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 Dr. Asif's note from yesterday is appreciated. He is concerned that this was a bronchopleural fistula from one of the cavitary lesions in his lungs. Treatment plan is per Dr. Asif. 2. Atrial fibrillation, new onset, rate is controlled. He is anticoagulated. 3. Anemia of chronic disease being managed by Nephrology. 4. Metastatic prostate cancer, poor prognosis. 5. Hypercoagulable state, he is on full-dose Lovenox. 6. Hypotensive episodes. I stopped his Tamsulosin yesterday, will know in a few days if it helps somewhat with his hypotension. 7. CBC and BMP today show no remarkable findings.
[2020-06-06] MEDS: ENOXAPARIN 80MG/0.8ML SYRINGE (J1650 PER 10MG) SC SCH (11:43)
--- NOTE | 2020-06-06 12:31 | IPN ---
PROGRESS NOTE DATE: 06/06/2020 Mr. Acosta still has his air leak, although it is not as large as it has been. Furthermore, his subcutaneous emphysema is resolving, both on physical examination and on chest x-ray. His vital signs show a maximum temperature of 98.7 with a heart rate that ranges between 56-76 and predominantly sinus rhythm, respiratory rate of 18 without the use of accessory muscles, who is 93%-94% saturated on room air, and whose blood pressure is ranging between 91/55 to 108/64. His intake and output for the past 24 hours has been recorded as 1980 in and 600 out, for a positivity of 680 mL. He has, however, put out 500 mL from the chest tube with the above air leak. Weight today is 76.4 kg compared to 77.5 kg yesterday. He went to hemodialysis 2 days ago, and nothing was taken off. He is due to go today, early this afternoon. PHYSICAL EXAMINATION: His lungs show crackles and subcutaneous emphysema, but they are much less. He has squeaks and swooshes consistent with his air leak. The right side shows almost normal vesicular wounds without wheezes, rhonchi, or rales. Percussion notes are full to the diaphragm. Cardiac exam is without murmurs, clicks, gallops, or rubs. I cannot feel his point of maximal impulse (PMI). S1 and S2 are normal. Abdomen is soft and nontender. Bowel sounds are positive. There is no hepatomegaly. No costovertebral angle (CVA) tenderness. Extremities show no pretibial edema, no calf tenderness, no differential swelling of the upper extremities. Skin is warm, dry, and perfused without cyanosis or mottling, including that of the nailbeds and knees. Neck is supple. There is no jugular venous distention. No subcutaneous emphysema. Trachea is midline. Mouth shows his mucous membranes to be pink and moist. Lips and commissures without lesions. No thrush. Eyes show his pupils to be equal and reactive. Extraocular motion intact. Sclerae anicteric. Neurologic shows II-XII intact. Normal gross motor, gross sensation intact. Gait is not tested. Psychiatric shows him to be awake, alert, and oriented times three with appropriate mood and affect and conversational. His white count today is 6.6 with a hemoglobin and hematocrit of 8.9 and 30.4, essentially unchanged from yesterday, with a platelet count of 169. Chemistries show normal electrolytes with a BUN and creatinine of 49 and 4.78, just prior to his dialysis this afternoon. Calcium is 7.3 with a glucose of 80 and a phosphorus of 3.0. His corresponding albumin is 1.8. His chest x-ray still shows an air-fluid level at the lower left hemithorax. Subcutaneous emphysema is markedly better than it was yesterday. The lung is still not expanded to the chest wall and is about 1.5 cm from the chest wall all throughout. I suspect the air-fluid level indicates a space that we saw on CT scan that is subpulmonic. IMPRESSION: 1. Hydropneumothorax, controlled with a chest tube. 2. Alveolar pleural or bronchopleural fistula, continuing. 3. Entrapped lung with residual airspace. 4. Metastatic carcinoma to the lung with the primary being pancreatic with cavitary lesions bilaterally in each lung. 5. Bigeminy. 6. Chronic renal disease, requiring dialysis. 7. Tobacco abuse. 8. BPH. 9. New-onset atrial fibrillation, now seemingly controlled and resolved. PLAN AND DISCUSSION: I am somewhat encouraged by the fact that the air leak is not as big as it has been and that his subcutaneous emphysema is markedly improved on his chest x-ray. It indicates that the air leak 1) is not as large as it was, and 2) it is not under pressure to leak into the subcutaneous tissue and through the chest wall. We will continue the same as is.
--- NOTE | 2020-06-06 19:35 | IPN ---
NEPHROLOGY PROGRESS NOTE DATE: 06/06/2020 SUBJECTIVE: Patient was seen and examined at the bedside today morning. Today is patient's regular day of dialysis. He denies any active complaints at this time. OBJECTIVE: VITAL SIGNS: Temperature 96.6 degrees Fahrenheit, blood pressure 133/34, pulse 88, respiratory rate 20, saturating 94% on room air. INTAKE AND OUTPUT: Urine output recorded as 210 mL. Weight in the bed scale is 76.4 kg. PHYSICAL EXAMINATION: GENERAL: Patient is weak and cachectic, bitemporal wasting, sunken eyes. HEAD/NECK: Bitemporal wasting, sunken eyes. Neck is supple. There is no JVD. CARDIOVASCULAR: S1, S2, regular rate. No edema of the bilateral lower extremities. RESPIRATORY: Decreased breath sounds at the left base. He has a chest tube attached to suctioning on the left side. ABDOMEN: Soft, positive bowel sounds, nontender. No organomegaly. MUSCULOSKELETAL: No clubbing or cyanosis. Pulses are 2+. ASSOCIATE LOAN OFFICER: No focal deficit. Power is 5/5 in all extremities. LAB REVIEW: CBC showed WBC 6.6, hemoglobin 8.9, platelets 169,000. BMP showed sodium 138, potassium 4.5, chloride 104, bicarb 26, BUN 49, creatinine 4.7. IMAGING STUDIES: A chest x-ray was done today morning, which showed no significant change from prior exam. CURRENT INPATIENT MEDICATIONS: Patient's medications were all reviewed by myself. No significant change in the medications today as compared with yesterday. ASSESSMENT AND PLAN: 1. End-stage renal disease: Patient will be dialyzed today according to the regular schedule. He gets minimal fluid removed because of cachexia and chronic drainage from the left-sided chest tube. 2. Anemia and end-stage renal disease: He continues to be on Aranesp 100 mcg with dialysis. 3. Left-sided hydropneumothorax: He has a chest tube. He is being seen by CT surgery. 4. Metastatic pancreatic cancer: Currently patient is not getting any chemotherapy. He has metastatic lesions in his lungs. 5. Hypercoagulable state: Patient is currently on Lovenox.
[2020-06-06] MEDS: BISACODYL 10 MG SUPP PR PRN (21:21)
[2020-06-06] MEDS: MORPHINE 2 MG/ML 1ML VIAL (J2270) IV PRN (23:42)
[2020-06-07] MEDS: LEVALBUTEROL 1.25 MG/0.5 ML CONCENTRATE NEB NEB SCH ×3 (01:06→16:57)
[2020-06-07] MEDS: METOCLOPRAMIDE INJ 10MG/2ML VIAL (J2765 PER 1) IV SCH ×3 (02:41→18:00)
[2020-06-07] MEDS: MORPHINE 4 MG/ML 1ML VIAL/SYRINGE (J2270) IV PRN (02:41)
[2020-06-07] MEDS: SODIUM CHLORIDE 0.9% INJ 10 ML SYR IV PRN (04:31)
[2020-06-07 04:38] VITALS: BP 100/65
[2020-06-07 04:53] LABS: HEMATOCRIT 32.1 % (42.0-52.0); HEMOGLOBIN 10.1 g/dl (13.5-17.5); MEAN CORPUSCULAR HGB CONC 31.5 g/dl (32.0-36.5); MEAN CORPUSCULAR VOLUME 95.3 fl (80.0-96.0); PLATELET COUNT, AUTOMATED 176 10^3/uL (150-450); RED BLOOD COUNT 3.37 10^6/uL (4.30-6.10)
[2020-06-07 06:20] LABS: ALBUMIN 1.9 GM/DL (3.2-5.2); CALCIUM LEVEL 7.9 MG/DL (8.8-10.2); CREATININE FOR GFR 3.5 MG/DL (0.70-1.30); GLOMERULAR FILTRATION RATE 18.2 (>42); PHOSPHORUS LEVEL 2.5 MG/DL (2.5-4.9); POTASSIUM SERUM 4.1 MEQ/L (3.5-5.1)
[2020-06-07 07:45] VITALS: BP 112/69
[2020-06-07] MEDS: PANTOPRAZOLE 40MG TAB (PROTONIX) PO SCH (10:08)
[2020-06-07] MEDS: MOM 30ML SUSPENSION UDC PO SCH (10:08)
[2020-06-07] MEDS: DOCUSATE SODIUM 100MG CAPSULE PO SCH ×2 (10:08→20:59)
[2020-06-07] MEDS: SODIUM CHLORIDE 0.9% INJ 10 ML SYR IV SCH (10:08)
[2020-06-07] MEDS: ASPIRIN 81 MG CHEW TABLET PO SCH (10:08)
[2020-06-07] MEDS: SENOKOT S TAB PO SCH ×2 (10:12→20:59)
[2020-06-07] MEDS: MIRALAX *UNIT DOSE* 17GM PACKET PO SCH ×2 (10:12→20:59)
--- NOTE | 2020-06-07 10:25 | REP ---
INDICATION: Chest Tube COMPARISON: 06/06/2020. TECHNIQUE: PA/Lateral FINDINGS: Small left pneumothorax appears unchanged. There are 2 left chest tubes again noted. Stable parenchymal opacities are seen in the inferior aspect of the left lung. There is also a small stable left pleural effusion. Mild parenchymal opacities in the mid lower right lung are unchanged. Air is seen in the chest wall bilaterally, also not significantly changed. The heart mediastinum are unchanged. Right central venous catheter is unchanged. A left central venous catheter is also unchanged. IMPRESSION: Stable exam. <Electronically signed by Garo Cabrera > 06/07/20 1021
[2020-06-07 11:37] VITALS: BP 104/63
[2020-06-07] MEDS: ENOXAPARIN 80MG/0.8ML SYRINGE (J1650 PER 10MG) SC SCH (12:22)
[2020-06-07 15:46] VITALS: BP 114/66
--- NOTE | 2020-06-07 16:38 | IPN ---
PROGRESS NOTE DATE: 06/07/2020 CHIEF COMPLAINT: His only complaint today is constipation. SUBJECTIVE: The rest of his issues are stable from yesterday. Waiting to talk to Dr. Asif about chest tube situation. (cut out) which showed some signs of progress yesterday. Denies chest pain or shortness of breath. Getting dialyzed periodically including yesterday. PHYSICAL EXAMINATION: Afebrile, vital signs stable. Lungs decreased breath sounds at the left side. Heart regular rhythm. Abdomen soft, nontender, non-distended. No peripheral edema. LABS: CBC unremarkable. Potassium 4.1. IMPRESSION: 1. Constipation, bowel care ordered. 2. Rest of medical problems outlined 06/06/2020 are stable.
--- NOTE | 2020-06-07 17:55 | IPNPDOC ---
Subjective Date Seen The patient was seen on 06/07/20. Subjective Chief Complaint/HPI Pt and nursing staff deny any overnight events. Pt is still feeling dehydrated. General: Reports: Fatigue; Denies: ROS Unobtainable, Chills, Night Sweats, Malaise, Normal Appetite, Other Symptoms Constitutional: Denies: Chills, Fever, Malaise, Night Sweats, Weakness, Fatigue, Weight Loss, Lethargy, Other Cardiovascular: Denies: Chest Pain, Palpitations, Orthopnea, Paroxysmal Noc. Dyspnea, Edema, Lt Headedness, Other Symptoms Objective Physical Examination General Exam: Positive: Alert, Cooperative, Mild Distress ENT Exam: Positive: Other ENT (oral mucosa dry) Chest Exam: Positive: Diminished (left-sided, pt has chest tube placed on left) Heart Exam: Positive: Rate Normal, Regular Rhythm, Normal S1, Normal S2 Abdomen Exam: Positive: Normal bowel sounds, Soft; Negative: Tenderness Extremity Exam: Negative: Edema Assessment /Plan Assessment #ESRD: Patient was dialyzed yesterday. He gets minimal fluid removed because of cachexia and chronic drainage from the left-sided chest tube. #Anemia and end-stage renal disease: He continues to be on Aranesp 100 mcg with dialysis. #Left-sided hydropneumothorax: He has a chest tube. He is being seen by CT surgery. #Metastatic pancreatic cancer: Currently patient is not getting any chemotherapy. He has metastatic lesions in his lungs. #Hypercoagulable state: Patient is currently on Lovenox. Plan/VTE VTE Prophylaxis Ordered?: Yes (Pt is on Lovenox) GME ATTESTATION My faculty preceptor for this patient encounter was physically present during the encounter and was fully available. All aspects of the patient interview, examination, medical decision making process, and medical care plan development were reviewed and approved by the faculty preceptor. The faculty preceptor is aware and concurs with the plan as stated in the body of this note and will attest to such by his/her cosignature. VS, I&O, 24H, Fishbone Vital Signs/I&O Vital Signs Date Time Temp Pulse Resp B/P (MAP) Pulse Ox O2 Delivery O2 Flow Rate FiO2 06/07/20 15:46 98.0 74 18 114/66 (82) 94 Room Air I&O- Last 24 Hours up to 6 AM 06/07/20 06:00 Intake Total 690 ml Output Total 725 ml Balance -35 ml Laboratory Data 24H LABS Laboratory Tests 2 06/07/20 04:37: Nucleated Red Blood Cells % (auto) 0.0, Anion Gap 4L, Glomerular Filtration Rate 18.2L, Calcium Level 7.9L, Phosphorus Level 2.5, Albumin 1.9L CBC/BMP Laboratory Tests 06/07/20 04:37 Microbiology Microbiology 05/28/20 Urine Culture - Final, Complete Attending Note Attending Note ESRD on HD Lt sided hydropneumothorax Metastatic Ca Pancreas. Cancer cachexia. HD as per schedule with minimal fluid removal. Lt sided chest tube with suction. Management as per CT surgery. cont LUDIN. Shorty Skelton DO Jun 07, 2020 17:55 LONG SKELTON MD Jun 12, 2020 09:12
[2020-06-07 20:00] VITALS: BP 106/66
[2020-06-08] VITALS: BP 119/73
[2020-06-08] MEDS: LEVALBUTEROL 1.25 MG/0.5 ML CONCENTRATE NEB NEB SCH ×4 (02:00→20:00)
[2020-06-08] MEDS: METOCLOPRAMIDE INJ 10MG/2ML VIAL (J2765 PER 1) IV SCH ×3 (02:33→18:59)
[2020-06-08 04:00] VITALS: BP 110/63
[2020-06-08 05:33] LABS: HEMATOCRIT 32.3 % (42.0-52.0); MEAN CORPUSCULAR HEMOGLOBIN 29.7 pg (27.0-33.0); MEAN CORPUSCULAR VOLUME 95.8 fl (80.0-96.0); PLATELET COUNT, AUTOMATED 186 10^3/uL (150-450); RED BLOOD COUNT 3.37 10^6/uL (4.30-6.10); WHITE BLOOD COUNT 11.6 10^3/uL (4.0-10.0)
[2020-06-08 05:55] LABS: ALBUMIN 1.9 GM/DL (3.2-5.2); CALCIUM LEVEL 7.6 MG/DL (8.8-10.2); CREATININE FOR GFR 4.14 MG/DL (0.70-1.30); PHOSPHORUS LEVEL 2.6 MG/DL (2.5-4.9); POTASSIUM SERUM 4.5 MEQ/L (3.5-5.1)
[2020-06-08 07:25] VITALS: BP 115/74
[2020-06-08] MEDS: SENOKOT S TAB PO SCH ×2 (09:02→20:21)
[2020-06-08] MEDS: PANTOPRAZOLE 40MG TAB (PROTONIX) PO SCH (09:02)
[2020-06-08] MEDS: MIRALAX *UNIT DOSE* 17GM PACKET PO SCH ×2 (09:02→20:21)
[2020-06-08] MEDS: MOM 30ML SUSPENSION UDC PO SCH (09:02)
[2020-06-08] MEDS: ASPIRIN 81 MG CHEW TABLET PO SCH (09:02)
[2020-06-08] MEDS: DOCUSATE SODIUM 100MG CAPSULE PO SCH ×2 (09:02→20:21)
[2020-06-08] MEDS: SODIUM CHLORIDE 0.9% INJ 10 ML SYR IV SCH (09:03)
--- NOTE | 2020-06-08 09:51 | REP ---
INDICATION: Chest Tube COMPARISON: 06/07/2020. TECHNIQUE: PA/Lateral FINDINGS: Small left lateral pneumothorax is stable, as are adjacent left lung opacities small left effusion. Two left chest tubes remain in place. Right central venous catheter is unchanged. Right lung opacities are also unchanged. Heart and mediastinum are unchanged. Air is again seen in the soft tissues of the chest wall bilaterally. IMPRESSION: Stable exam. <Electronically signed by Garo Cabrera > 06/08/20 0994
--- NOTE | 2020-06-08 10:51 | REP ---
INDICATION: BPF, entrapped lung. COMPARISON: 06/04/2020. TECHNIQUE: CT chest performed without the use of intravenous contrast. Sagittal and coronal reconstruction images are performed. FINDINGS: Two left chest tubes remain in place with the distal and in the posterior left pleural space. There is a moderate left pneumothorax which has increased since the prior study. There is mild fluid layering posteriorly which is also mildly increased. Peripheral consolidative opacities in the left lung are unchanged, as is a left parahilar cavitating mass density. Three right lung masses are unchanged. Diffuse air in the soft tissues of the chest wall has improved. A right central venous catheter is seen with tip in the superior vena cava. A left central venous catheter is seen with the tip in the left brachiocephalic vein. A few small mediastinal lymph nodes are present, not significantly enlarged and unchanged. The heart is not significantly enlarged. There is no pericardial effusion. There is a tiny amount of right pleural fluid. The visualized upper abdomen there are no new findings, postsurgical changes are again seen in the region of the pancreatic head. Air is seen in the biliary system. IMPRESSION: Moderate left pneumothorax has increased in size when compared to the prior CT of 06/04/2020. Mild left pleural fluid has also increased. The air in the chest wall soft tissues has improved. <Electronically signed by Garo Cabrera > 06/08/20 [id number]
[2020-06-08 11:33] VITALS: BP 109/69
[2020-06-08] MEDS: ENOXAPARIN 80MG/0.8ML SYRINGE (J1650 PER 10MG) SC SCH (11:58)
[2020-06-08 15:36] VITALS: BP 125/70
--- NOTE | 2020-06-08 19:13 | IPN ---
PROGRESS NOTE DATE: 06/08/2020 SUBJECTIVE: Michele is seen on PCU. End-stage renal disease receiving dialysis, metastatic pancreatic cancer with metastasis to lungs, left-sided hydropneumothorax with a possible fistula. Dr. Asif has been managing his chest tube. OBJECTIVE: VITAL SIGNS: Afebrile. Vital signs stable. LUNGS: Decreased breath sounds on the left side and a few rhonchi on the right. HEART: Regular rhythm. ABDOMEN: Soft and nontender. EXTREMITIES: No peripheral edema. LABORATORY DATA: White count is 11.6, hemoglobin 10, platelets 186,000. Sodium 138, potassium 4.5, BUN 43, creatinine 4.1. IMPRESSION/PLAN: 1. Hydropneumothorax. Chest tube per Dr. Asif. 2. Atrial fibrillation. Rate is controlled. He is anticoagulated. 3. Anemia of chronic disease being managed by nephrology. 4. Prostate cancer metastatic with poor prognosis. 5. Hypercoagulable state. Continue full dose Lovenox. Prognosis is poor. Short term we are just trying to get the chest tube out. I think his half-way prognosis is very poor.
[2020-06-08 20:00] VITALS: BP 131/66
--- NOTE | 2020-06-08 23:43 | IPN ---
NEPHROLOGY PROGRESS NOTE DATE: 06/08/2020 SUBJECTIVE: The patient was seen and examined at the bedside today morning. He is afebrile, hemodynamically stable. He reports that he has just come back after getting the CAT scan of the chest done because of persistent left sided hydropneumothorax. Tomorrow is the patient's regular day of dialysis. OBJECTIVE: VITAL SIGNS: Temperature is 99.3 degrees Fahrenheit, blood pressure 125/70, pulse is 73, respiratory rate of 18, saturating 95% on room air. INTAKE AND OUTPUT: Urine output is not recorded. Chest tube drainage since overnight is 270 mL. Weight in the bed scale was 77.1 kg yesterday. PHYSICAL EXAMINATION: GENERAL APPEARANCE: The patient is weak, cachectic, chronically malnourished. HEAD AND NECK: He has bitemporal wasting. Mucous membranes are moist. Neck is supple. He has a left IJ tunneled hemodialysis catheter. CARDIOVASCULAR: S1, S2, regular rate. EXTREMITIES: No edema of the bilateral lower extremities. RESPIRATORY: Decreased breath sounds at the left base with air suctioning sound from the left sided chest tube. ABDOMEN: Soft, positive bowel sounds, nontender. MUSCULOSKELETAL: No clubbing, no cyanosis. Pulses are 2+. 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 Power is 5/5 in all extremities. LAB REVIEW: CBC showed a white blood cell count of 11.6, hemoglobin is 10, platelet count 186. BMP showed sodium of 138, potassium 4.5, chloride 104, bicarbonate 27, BUN 43, creatinine is 1.1. IMAGING: A CAT scan of the chest was done today which showed moderate left pneumothorax has increased in size when compared to the prior CT. Mild left pleural fluid has also increased. Air in the chest wall soft tissue has improved. ASSESSMENT AND PLAN: 1. End-stage renal disease - The patient will be dialyzed tomorrow morning according to his regular schedule. 2. Left sided hydropneumothorax chest tube is being managed by CT Surgery. Most likely it is associated with pulmonary metastasis. 3. Anemia and end-stage renal disease - Hemoglobin level is stable. 4. Metastatic pancreatic cancer - The patient has metastasis to the lung. He has a left sided hydropneumothorax, currently not on any chemotherapy.
[2020-06-09] VITALS: BP 146/74
[2020-06-09] MEDS: LEVALBUTEROL 1.25 MG/0.5 ML CONCENTRATE NEB NEB SCH ×4 (02:00→20:51)
[2020-06-09] MEDS: METOCLOPRAMIDE INJ 10MG/2ML VIAL (J2765 PER 1) IV SCH ×3 (03:35→19:31)
[2020-06-09 04:00] VITALS: BP 116/68
[2020-06-09 05:37] LABS: HEMATOCRIT 31.9 % (42.0-52.0); HEMOGLOBIN 9.7 g/dl (13.5-17.5); MEAN CORPUSCULAR HEMOGLOBIN 29.2 pg (27.0-33.0); MEAN CORPUSCULAR HGB CONC 30.4 g/dl (32.0-36.5); MEAN CORPUSCULAR VOLUME 96.1 fl (80.0-96.0); PLATELET COUNT, AUTOMATED 192 10^3/uL (150-450); RED BLOOD COUNT 3.32 10^6/uL (4.30-6.10); WHITE BLOOD COUNT 13.1 10^3/uL (4.0-10.0)
[2020-06-09 07:44] VITALS: BP 148/69
[2020-06-09 07:47] LABS: ALBUMIN 1.8 GM/DL (3.2-5.2); CALCIUM LEVEL 7.9 MG/DL (8.8-10.2); CREATININE FOR GFR 4.74 MG/DL (0.70-1.30); GLOMERULAR FILTRATION RATE 12.8 (>42); PHOSPHORUS LEVEL 2.5 MG/DL (2.5-4.9); POTASSIUM SERUM 5.1 MEQ/L (3.5-5.1)
[2020-06-09] MEDS: MOM 30ML SUSPENSION UDC PO SCH (09:00)
[2020-06-09] MEDS: SODIUM CHLORIDE 0.9% INJ 10 ML SYR IV SCH (09:00)
[2020-06-09] MEDS: MIRALAX *UNIT DOSE* 17GM PACKET PO SCH ×2 (09:00→20:52)
--- NOTE | 2020-06-09 09:52 | REP ---
INDICATION: Chest Tube COMPARISON: 06/08/2020. TECHNIQUE: PA/Lateral FINDINGS: There is no change in left hydropneumothorax. Bilateral parenchymal opacities are unchanged. Two left chest tubes are again noted inferiorly. There are bilateral central venous catheter is unchanged. Heart mediastinum are unchanged. IMPRESSION: Stable exam. <Electronically signed by Garo Cabrera > 06/09/20 0948
--- NOTE | 2020-06-09 10:09 | IPN ---
PROGRESS NOTE DATE: 06/09/2020 SUBJECTIVE: Michele is seen in the PCU. He is essentially here for chest tube management. He is a very sick individual with metastatic pancreatic cancer with metastases to the lung. He has a large left sided hydropneumothorax. Chest tube currently in place with an air leak. CT scan yesterday showed increased size of the pneumothorax. I am communicating with Dr. Asif. He is concerned the patient might never be able to be rid of that chest tube. Denies any chest pain or shortness of breath. Chest tube pain is minimal. PHYSICAL EXAMINATION: VITAL SIGNS: Blood pressure is 148/69, pulse is 76, respiratory rate is 18, 94% O2 saturation. GENERAL: He is alert and conversant, in no distress. LUNGS: Clear on the right. Left had decreased breath sounds. HEART: Regular rhythm. ABDOMEN: Soft, nontender. EXTREMITIES: No peripheral edema. LABORATORY DATA: White count is 13,000, hemoglobin 9.7, platelets 192,000, sodium 136, potassium 5.1, creatinine 4.7. IMPRESSION: 1. Left hydropneumothorax. Chest tube in place from Dr. Asif. We have been communicating about this. 2. Pancreatic cancer, metastatic to lung. Prognosis is poor. We discussed advance directives (see below). 3. Endstage renal disease, dialysis by Nephrology. 4. Anemia of chronic disease. Stable hemoglobin. 5. Hypercoagulable state. 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 6. Leukocytosis. His white count is creeping up. He has not had any fevers. He is not currently on antibiotics. I do not see that he is developing any signs of identified infection. 7. Advance directives. His prognosis is poor. I had a discussion with him about this today. He is discouraged over the chest tube. I am not sure how long he is going to need to have that in. At this point he is a full code. I discussed with him whether he wanted to maintain that status which he does but he did say that he would "think about" deescalating care if the chest tube situation persists.
[2020-06-09] MEDS: ASPIRIN 81 MG CHEW TABLET PO SCH (10:11)
[2020-06-09] MEDS: DOCUSATE SODIUM 100MG CAPSULE PO SCH ×2 (10:12→20:52)
[2020-06-09] MEDS: SENOKOT S TAB PO SCH ×2 (10:12→20:52)
[2020-06-09] MEDS: PANTOPRAZOLE 40MG TAB (PROTONIX) PO SCH (10:12)
[2020-06-09] MEDS: ENOXAPARIN 80MG/0.8ML SYRINGE (J1650 PER 10MG) SC SCH (10:13)
--- NOTE | 2020-06-09 10:21 | IPN ---
PROGRESS NOTE DATE: 06/07/2020 SUBJECTIVE: Mr. Acosta still has an air leak. Earlier this week, I thought it was smaller. It looks as though it is still a rolling air leak even on 20 cm of suction. He is breathing well. OBJECTIVE: VITAL SIGNS: Show a T-max of 98.0 with a heart rate that ranges between 74 and 78 and is predominantly a sinus rhythm. Respiratory rate that is a constant 18 who is 93% to 95% saturated on room air and whose blood pressure is ranging between 114/66 to 100/65. INTAKE AND OUTPUT: Over the past 24 hours has been recorded as 960 in and 860 out for a negativity of 170 mL. 200 mL was taken off at hemodialysis. His chest tube has put out 450 mL with the above air leak. His weight today is 77.1 kg compared to 76.4 kg yesterday. RESPIRATORY: His lungs show squeaks and whistles of his air leak on the left side. Right side shows normal vesicular sounds. Percussion notes are full to the diaphragm. CARDIAC: Without murmurs, clicks, gallops, or rubs. I cannot feel his PMI. S1 and S2 are normal. ABDOMEN: Soft and nontender. Bowel sounds are positive. There is no hepatomegaly. No CVA tenderness. EXTREMITIES: Show no pretibial edema. No calf tenderness. No differential swelling of the upper extremities. SKIN: Warm, dry, and perfused without cyanosis or mottling, including that of the nail beds and knees. NECK: Supple. There is no jugular venous distention. No subcutaneous emphysema. Trachea is midline. MOUTH: Shows the mucous membranes to be pink and moist. Lips and gums without lesions and no thrush. EYES: Show his pupils equal and reactive. Extraocular movements are intact. Sclerae nonicteric. NEUROLOGIC: Shows II through XII intact. Normal gross motor, gross sensation intact. Gait is not tested. PSYCHIATRIC: Shows him to be awake, alert, and oriented x3 with appropriate mood and affect and conversational. LABORATORY DATA: His white count today is 10.0 with a hemoglobin and hematocrit of 10.1 and 32.1 respectively, improved from 8.9 and 30.4 yesterday. Platelet count is 176,000. There is no differential. Chemistries today show normal electrolytes with a BUN and creatinine of 33 and 3.50 after dialysis yesterday. Glucose is 88 with a calcium of 7.9 and a phosphorus of 2.5. Albumin is 1.9. IMAGING DATA: His chest x-ray today still shows the lung from the chest wall by about 1.5 cm. Subcutaneous emphysema is essentially unchanged, may be dissipating a bit. There is still the air fluid level subpulmonically consistent with his lung being entrapped and not expanding to the chest wall. Chest tube looks to be in good place. IMPRESSION: 1. Hydropneumothorax controlled with a chest tube. 2. Alveolopleural or bronchopleural fistula continuing. 3. Entrapped lung with residual airspace. 4. Metastatic carcinoma to the lung with primary being pancreatic with cavitary lesions bilaterally in each lung. 5. Bigeminy controlled. 6. Chronic renal disease requiring dialysis. 7. Tobacco abuse. 8. BPH. 9. New onset atrial fibrillation now controlled and resolved. PLAN AND DISCUSSION: We are again just playing a waiting game here. I am starting to get the sinking feeling that this bronchopleural fistula is not going to close. It has been nearly two weeks since he was admitted. All I can do is wait this out.
--- NOTE | 2020-06-09 11:15 | IPN ---
PROGRESS NOTE DATE: 06/08/2020 SUBJECTIVE: Mr. Acosta still has a considerable air leak. He is breathing well and his pain is being well-controlled at the chest tube insertion site. OBJECTIVE: VITAL SIGNS: Show a T-max of 97.7 with a heart rate that ranges between 73 and 75 in a predominantly sinus rhythm. Respiratory rate that is constant 18 who is 94% saturated on room air and whose blood pressure is ranging between 110/63 to 119/73. INTAKE AND OUTPUT: Over the past 24 hours has been recorded as 900 in and 380 out for a positivity of 520 mL. He has put 380 mL out the chest tube, which is the lowest it has been since his admission. He still has his rolling air leak on 20 cm of suction. RESPIRATORY: He has the squeaks of whistles of his air leak on the left side. The right side shows normal vesicular sounds. Percussion notes are full to the diaphragm. His subcutaneous emphysema is present on the right and left lateral chest moreira, which is unchanged from yesterday. CARDIAC: Without murmurs, clicks, gallops, or rubs. I cannot feel his PMI. S1 and S2 are normal. ABDOMEN: Soft and nontender. Bowel sounds are positive. There is no hepatomegaly. No CVA tenderness. EXTREMITIES: Show no pretibial edema. No calf tenderness. No differential swelling of the upper extremities. SKIN: Warm, dry, and perfused without cyanosis or mottling, including that of the nail beds and knees. NECK: Supple. There is no jugular venous distention. No subcutaneous emphysema. Trachea is midline. MOUTH: Shows the mucous membranes to be pink and moist. Lips and gums without lesions and no thrush. EYES: Show his pupils equal and reactive. Extraocular movements are intact. Sclerae nonicteric. NEUROLOGIC: Shows II through XII intact. Normal gross motor, gross sensation intact. Gait is not tested. PSYCHIATRIC: Shows him to be awake, alert, and oriented x3 with appropriate mood and affect and conversational. LABORATORY DATA: His white count today is 11.6 with a hemoglobin and hematocrit of 10.0 and 32.3 respectively unchanged from yesterday with a platelet count of 186,000. There is no differential. Electrolytes are normal with a BUN and creatinine of 43 and 4.14 slowly rising between dialysis intervals. Calcium is 7.6 with a phosphorus of 2.6. Albumin is constant 1.9. IMAGING DATA: His chest x-ray today still shows the lungs from the chest wall now by still 1.5 cm. Subcutaneous emphysema is essentially unchanged. Air fluid level inferiorly is still present from his entrapped lung. IMPRESSION: 1. Hydropneumothorax controlled with a chest tube. 2. Alveolopleural or bronchopleural fistula continuing. 3. Entrapped lung with residual airspace. 4. Metastatic pancreatic carcinoma to the lung with cavitary lesions bilaterally in each lung. 5. Bigeminy. 6. Chronic renal disease requiring dialysis. 7. Tobacco abuse. 8. BPH. 9. New onset atrial fibrillation, resolved. PLAN AND DISCUSSION: This is now the 12th hospital day for Mr. Acosta. As noted yesterday, I have a sinking feeling that this air leak is not going to stop. I am still quite reticent to bring him to the operating room, although I have broached the subject with him today. I have indicated that if we did go to the operating room, I could not guarantee stopping the air leak and that the operation even though it would be done thoracoscopically would be high risk. If my suspicion that this is a tumor that has eroded through the pleura is correct, it would require a major wedge resection of the tumor itself, which may be difficult because of its position in the middle of the lung. I will continue to monitor with chest x-rays, and I will also obtain a CT scan of him today.
[2020-06-09 12:00] VITALS: BP 127/67
--- NOTE | 2020-06-09 12:19 | IPN ---
PROGRESS NOTE DATE: 06/09/2020 SUBJECTIVE: Mr. Acosta still continues to have a large air leak. He is breathing well. His pain is being well-controlled at the chest tube incision site. He is going to dialysis this afternoon. OBJECTIVE: VITAL SIGNS: Show a T-max of 98.6 with a heart rate that ranges between 76 and 78 in predominantly sinus rhythm. Respiratory rate that is constant 18 who is 94% to 92% saturated on room air and whose blood pressure is ranging between 148/69 to 116/68. INTAKE AND OUTPUT: Over the past 24 hours has been recorded as 1200 in and 455 out for a positivity of 745 mL. He has put out 355 mL from the chest tube and there is still the rolling air leak. He weighs 76.9 kg today compared to 77.1 kg yesterday. RESPIRATORY: His left lung still shows the whistles and squeaks of his air leak. His right lung shows normal vesicular sounds with a percussion note that is full to the diaphragm on either side. CARDIAC: Without murmurs, clicks, gallops, or rubs. I cannot feel his PMI. S1 and S2 are normal. ABDOMEN: Soft and nontender. Bowel sounds are positive. There is no hepatomegaly. No CVA tenderness. EXTREMITIES: Show no pretibial edema. No calf tenderness. No differential swelling of the upper extremities. SKIN: Warm, dry, and perfused without cyanosis or mottling, including that of the nail beds and knees. NECK: Supple. There is no jugular venous distention. No subcutaneous emphysema. Trachea is midline. MOUTH: Shows the mucous membranes to be pink and moist. Lips and gums without lesions and no thrush. EYES: Show his pupils equal and reactive. Extraocular movements are intact. Sclerae nonicteric. NEUROLOGIC: Shows II through XII intact. Normal gross motor, gross sensation intact. Gait is not tested. PSYCHIATRIC: Shows him to be awake, alert, and oriented x3 with appropriate mood and affect and conversational. LABORATORY DATA: His white count today is 13.1 up from 11.6 yesterday, hemoglobin and hematocrit 9.7 and 31.9 essentially unchanged with a platelet count of 192,000. There is no differential. His chemistries today show normal electrolytes with a BUN and creatinine of 53 and 4.74 with a glucose of 86 and a calcium of 7.9. Albumin is 1.8. IMAGING DATA: His chest x-ray today still shows his lungs not expanded to the chest wall and still approximately now 2 cm from the chest wall at its greatest distant. There is still an air fluid level in the lower hemithorax. IMPRESSION: 1. Hydropneumothorax controlled with a chest tube. 2. Alveolopleural or bronchopleural fistula continuing. 3. Entrapped lung with residual airspace. 4. Metastatic pancreatic carcinoma to the left lung with cavitary lesions bilaterally in each lung. 5. Bigeminy, controlled. 6. Chronic renal disease requiring dialysis. 7. Tobacco abuse. 8. BPH. 9. New onset atrial fibrillation, resolved. PLAN AND DISCUSSION: It is now approaching two weeks from admission that he still has this large bronchopleural fistula. I am still quite reticent to take him to the OR to do an actually thoracoscopy to find this air leak; however, I am going to take him to the operating room where we will do a bronchoscopic occlusion and find the offending bronchus and then occlude that with TISSEEL glue. That will give us about three days for the air leak to stop. I may very well supplement that with a blood patch. He already has a port in place that I can access. I have explained to Mr. Acosta the risks and benefits of the operation including lack of success, as well as postobstructive pneumonia after occlusion of the bronchus. He understands and is willing to proceed. I have also spoken to his telephonically and she understands and is also willing to proceed. We will plan to do this Tuesday. Dr. Acosta or Dr. Parikh will assist me.
[2020-06-09] MEDS: DARBEPOETIN 100 MCG/0.5 ML *DIALYSIS* SYRINGE (J0882) IV SCH (13:39)
[2020-06-09 16:45] VITALS: BP 108/61
[2020-06-09] MEDS: BISACODYL 10 MG SUPP PR PRN (19:31)
[2020-06-09 20:00] VITALS: BP 147/71
[2020-06-10] VITALS: BP 109/65
[2020-06-10] MEDS: LEVALBUTEROL 1.25 MG/0.5 ML CONCENTRATE NEB NEB SCH ×4 (02:00→20:47)
[2020-06-10 04:00] VITALS: BP 98/54
[2020-06-10] MEDS: METOCLOPRAMIDE INJ 10MG/2ML VIAL (J2765 PER 1) IV SCH ×3 (04:13→18:06)
[2020-06-10 06:23] LABS: HEMATOCRIT 30.4 % (42.0-52.0); HEMOGLOBIN 9.2 g/dl (13.5-17.5); MEAN CORPUSCULAR HEMOGLOBIN 29.4 pg (27.0-33.0); MEAN CORPUSCULAR HGB CONC 30.3 g/dl (32.0-36.5); MEAN CORPUSCULAR VOLUME 97.1 fl (80.0-96.0); PLATELET COUNT, AUTOMATED 189 10^3/uL (150-450); RED BLOOD COUNT 3.13 10^6/uL (4.30-6.10); WHITE BLOOD COUNT 11.9 10^3/uL (4.0-10.0)
[2020-06-10 07:16] LABS: ALBUMIN 1.7 GM/DL (3.2-5.2); CALCIUM LEVEL 7.5 MG/DL (8.8-10.2); CREATININE FOR GFR 3.47 MG/DL (0.70-1.30); GLOMERULAR FILTRATION RATE 18.4 (>42); PHOSPHORUS LEVEL 2.9 MG/DL (2.5-4.9); POTASSIUM SERUM 4.5 MEQ/L (3.5-5.1)
[2020-06-10 08:00] VITALS: BP 103/64
--- NOTE | 2020-06-10 08:18 | REP ---
INDICATION: Chest Tube COMPARISON: 06/09/2020 TECHNIQUE: PA and lateral. FINDINGS: Bilateral pleuroparenchymal changes including left hydropneumothorax and scattered bilateral opacities as well as subcutaneous emphysema essentially unchanged from prior examination. Lines and tubes are stable. Cardiac silhouette stable. IMPRESSION: No significant change from prior examination. <Electronically signed by David Green > 06/10/20 0814
[2020-06-10] MEDS: ASPIRIN 81 MG CHEW TABLET PO SCH (08:44)
[2020-06-10] MEDS: PANTOPRAZOLE 40MG TAB (PROTONIX) PO SCH (08:44)
[2020-06-10] MEDS: MOM 30ML SUSPENSION UDC PO SCH (08:44)
[2020-06-10] MEDS: MIRALAX *UNIT DOSE* 17GM PACKET PO SCH ×2 (08:44→20:03)
[2020-06-10] MEDS: SENOKOT S TAB PO SCH ×2 (08:44→20:03)
[2020-06-10] MEDS: DOCUSATE SODIUM 100MG CAPSULE PO SCH ×2 (08:44→20:03)
[2020-06-10] MEDS: SODIUM CHLORIDE 0.9% INJ 10 ML SYR IV SCH (08:45)
--- NOTE | 2020-06-10 09:14 | IPN ---
PROGRESS NOTE DATE: 06/09/2020 SUBJECTIVE: Mr. Acosta is seen and examined this morning at the bedside and he is due for dialysis this afternoon. He offers no new medical complaints. He reports his pain is adequately controlled. Dr. Asif is planning to take him to the OR on Tuesday. PHYSICAL EXAMINATION: VITAL SIGNS: Temperature is 98.9, pulse is 96, respiratory rate 20, blood pressure is 108/61, saturating 93 to 96% on room air. INTAKE AND OUTPUT: Intake yesterday was 1200, urine output was 100. Chest tube drainage was 350 and dialysis today removed 500 ml. Weight on the bed scale today was 76.9 kg. GENERAL APPEARANCE: Patient is seen lying in bed, awake, alert and oriented in no apparent distress. Looks depressed and chronically malnourished with bitemporal wasting. HEENT: Moist mucous membranes. NECK: Supple. There is a tunneled left IJ hemodialysis catheter. CARDIAC: S1 and S2, regular rate. No edema of the lower extremities. LUNGS: Diminished breath sounds at the left base and a left sided chest tube with a suctioning sound. ABDOMEN: Soft, there are bowel sounds. It is nontender. EXTREMITIES: Negative for clubbing or cyanosis. There is a nonfunctional graft in the left arm. NEUROLOGIC: He is oriented x3, interactive and conversational today. LABORATORY DATA: Today's laboratory studies shows white count of 13.1, hemoglobin 9.7, platelets 192,000. Sodium 136, potassium 5.1. Albumin 1.8. Chest x-ray this morning shows no change in left hydropneumothorax. INPATIENT MEDICATIONS: Reviewed by myself and no changes are noted over the past couple of days. PROBLEMS: 1. Endstage renal disease on hemodialysis on a Tuesday, Tuesday and Tuesday schedule. Patient is dialyzed this afternoon. He has minimal fluid removed, 500 ml were removed today. His electrolytes and volume status are acceptable. Continue current prescription. 2. Left sided hydropneumothorax with chest tube which is being managed by CT Surgery and the patient is for OR with Dr. Asif on Tuesday. 3. Anemia related to chronic renal failure and underlying malignancy. Hemoglobin is stable and he continues on Aranesp.
[2020-06-10] MEDS: ACETAMINOPHEN TAB 650MG DOSE (2X325MG) PO PRN (11:43)
[2020-06-10] MEDS: ENOXAPARIN 80MG/0.8ML SYRINGE (J1650 PER 10MG) SC SCH (11:43)
[2020-06-10 12:00] VITALS: BP 113/61
--- NOTE | 2020-06-10 12:33 | IPNPDOC ---
Text Note Date of Service The patient was seen on 06/10/20. NOTE Subjective: Patient was seen and examined this morning at bedside chest tube in place. He has no new complaints from prior. States his pain is controlled. Understands plan to go to the OR with Dr. Asif on Tuesday. Objective: Constitutional: Awake and alert, in no apparent distress, elderly male frail weak appearing ENT: Sclera are clear Respiratory: Appears to be breathing comfortably has a left-sided chest tube in place with diminished breath sounds on the left lung base Cardiovascular: RRR S1 and S2 are normal Gastrointestinal: Abdomen is soft, non distended, non tender, BS present. Musculoskeletal: No peripheral edema Neurologic: No focal neurological deficit. Mental Status: A&O x3, normal affect Skin: Warm, dry Assessment/plan: 75-year-old male with metastatic cancer very sick with a left-sided chest tube in place to manage it large hydropneumothorax # Left-sided hydropneumothorax: Chest tube in place. Managed by Dr. Asif CT surgery. Plan for OR tomorrow. # ESRD: on HD MWF. managed by nephrology. # Pancreatic cancer: with mets to the lung. Poor prognosis. # hypercoagulable state: due to underlying malignancy. he's on full dose lovenox and ASA. has AV fistulae and permacath thrombosis. # A fib: had an episode but currently back to sinus. He's already anticoagulated if this is paroxysmal. # ACD: stable hgb. likely 2/2 to his ESRD and malignancy. # DVT prophyalis: on lovenox. [facility] Rick CHAVEZ, I+O VSRick I+O Laboratory Tests 06/10/20 06:08 Vital Signs Date Time Temp Pulse Resp B/P (MAP) Pulse Ox O2 Delivery O2 Flow Rate FiO2 06/10/20 04:00 98.0 72 18 98/54 (69) 93 Room Air I&O- Last 24 Hours up to 6 AM 06/10/20 06:00 Intake Total 360 ml Output Total 1260 ml Balance -900 ml DIDIER QUINN MD Jun 10, 2020 07:24
--- NOTE | 2020-06-10 13:22 | IPN ---
PROGRESS NOTE DATE: 06/10/2020 Mr. Acosta still has a rolling air leak. He states that he is breathing well, and his pain is being well controlled at the chest tube insertion site. We have again discussed the strategy for taking him to the operating room tomorrow to do a bronchial occlusion. Dr. Acosta will assist me. His vital signs show a maximum temperature of 98.2 with average heart rate that ranges between 91 and 72 in a sinus rhythm with a respiratory rate that is constant at 18, who is 94%-93% saturated on room air and shows blood pressure is ranging between 98/54 to 109/65. His intake and output for the past 24 hours has been recorded as 360 in and 1265 out, for a negative of 900 mL. He has put out 365 mL from the chest tube with the rolling air leak, and hemodialysis took off 500 mL yesterday. His weight today is 79.2 kg compared to 76.9 kg yesterday. PHYSICAL EXAMINATION: His left lung still shows the squeaks and whistles of his air leak. Right lung shows normal vesicular sounds with a full percussion note. Percussion note is hyperresonant on the left. Cardiac exam is without murmurs, clicks, gallops, or rubs. I cannot feel his point of maximal impulse (PMI). S1 and S2 are normal. Abdomen is soft and nontender. Bowel sounds are positive. There is no hepatomegaly. No costovertebral angle (CVA) tenderness. Extremities show no pretibial edema, no calf tenderness, no differential swelling of the upper extremities. Skin is warm, dry, and perfused without cyanosis or mottling, including that of the nailbeds and knees. Neck is supple. There is no jugular venous distention. No subcutaneous emphysema. Trachea is midline. Mouth shows the mucous membranes to be pink and moist. Lips and commissures without lesions. No thrush. Eyes show his pupils to be equal and reactive. Extraocular motion intact. Sclerae anicteric. Neurologic shows II-XII intact. Normal gross motor, gross sensation intact. Gait is not tested. Psychiatric shows him to be awake, alert, and oriented times three with appropriate mood and affect and conversational. His chest x-ray today still shows the lung from the chest wall. There is still the air-fluid level at the base of the left hemithorax. His white count is 11.9 with a hemoglobin and hematocrit of 9.2 and 30.4, slightly decreased from 9.7 and 31.9 yesterday. Platelet count is 189. There is no differential. Electrolytes show normal with a BUN and creatinine of 36 and 3.47 with a glucose of 83 and a calcium 7.5 with a corresponding albumin of 1.7. IMPRESSION: 1. Hydropneumothorax, controlled with a chest tube. 2. Alveolar pleural or bronchopleural fistula, continuing. 3. Entrapped lung with residual airspace. 4. Metastatic pancreatic carcinoma to the left lung with cavitary lesions bilaterally in each lung. 5. Bigeminy controlled. 6. Chronic renal disease, requiring dialysis. 7. Tobacco abuse. 8. BPH. 9. New-onset atrial fibrillation, resolved. PLAN AND DISCUSSION: I will take him to the operating room tomorrow along with Dr. Acosta, and we will do an occlusion bronchoscopy and try to find which bronchus is contributing to the bronchopleural fistula. We will then inject Tisseel glue to seal off the bronchus. The Tisseel glue will probably last for about 3 days. I am hoping that over the course of 3 days the bronchopleural fistula will then resolve itself. We will also do a blood patch at the same time if we can get the air leak stopped.
[2020-06-10 16:00] VITALS: BP 99/55
[2020-06-10] MEDS: SODIUM CHLORIDE 0.9% INJ 10 ML SYR IV PRN (18:06)
[2020-06-10 20:00] VITALS: BP 121/65
[2020-06-11] VITALS (9 sets, daily range): BP systolic 100–134; BP diastolic 58–74
[2020-06-11] MEDS: LEVALBUTEROL 1.25 MG/0.5 ML CONCENTRATE NEB NEB SCH ×3 (01:19→20:33)
[2020-06-11] MEDS: METOCLOPRAMIDE INJ 10MG/2ML VIAL (J2765 PER 1) IV SCH ×3 (03:59→19:25)
[2020-06-11 06:01] LABS: HEMATOCRIT 32.3 % (42.0-52.0); HEMOGLOBIN 9.7 g/dl (13.5-17.5); MEAN CORPUSCULAR HEMOGLOBIN 29.4 pg (27.0-33.0); MEAN CORPUSCULAR VOLUME 97.9 fl (80.0-96.0); PLATELET COUNT, AUTOMATED 220 10^3/uL (150-450); WHITE BLOOD COUNT 9.2 10^3/uL (4.0-10.0)
[2020-06-11 07:08] LABS: CALCIUM LEVEL 7.3 MG/DL (8.8-10.2); CREATININE FOR GFR 4.44 MG/DL (0.70-1.30); GLOMERULAR FILTRATION RATE 13.8 (>42)
--- NOTE | 2020-06-11 07:33 | IPNPDOC ---
Text Note Date of Service The patient was seen on 06/11/20. NOTE Subjective: No new complaints from prior. States his pain is controlled. Understands plan to go to the OR with Dr. Asif and Dr. Acosta this morning Objective: Constitutional: Awake and alert, in no apparent distress, elderly male frail weak appearing ENT: Sclera are clear Respiratory: Appears to be breathing comfortably has a left-sided chest tube in place with diminished breath sounds on the left lung base Cardiovascular: RRR S1 and S2 are normal Gastrointestinal: Abdomen is soft, non distended, non tender, BS present. Musculoskeletal: No peripheral edema Neurologic: No focal neurological deficit. Mental Status: A&O x3, normal affect Skin: Warm, dry Assessment/plan: 75-year-old male with metastatic cancer very sick with a left-sided chest tube in place to manage it large hydropneumothorax # Left-sided hydropneumothorax: Chest tube in place. Managed by Dr. Asif CT surgery. Plan for OR this morning to try to control the air leak. # ESRD: on HD MWF. managed by nephrology. # Pancreatic cancer: with mets to the lung. Poor prognosis. # hypercoagulable state: due to underlying malignancy. he's on full dose lovenox and ASA. has AV fistulae and permacath thrombosis. # A fib: had an episode but currently back to sinus. He's already anticoagulated if this is paroxysmal. # ACD: stable hgb. likely 2/2 to his ESRD and malignancy. # DVT prophyalis: on lovenox. [facility] Rick CHAVEZ, I+O VSRick I+O Laboratory Tests 06/11/20 05:30 Vital Signs Date Time Temp Pulse Resp B/P (MAP) Pulse Ox O2 Delivery O2 Flow Rate FiO2 06/11/20 04:00 97.9 70 18 100/61 (74) 96 Room Air I&O- Last 24 Hours up to 6 AM 06/11/20 06:00 Intake Total 656 ml Output Total 810 ml Balance -154 ml DIDIER QUINN MD Jun 11, 2020 07:33
[2020-06-11] MEDS: MOM 30ML SUSPENSION UDC PO SCH (08:08)
[2020-06-11] MEDS: MIRALAX *UNIT DOSE* 17GM PACKET PO SCH ×2 (08:08→20:11)
[2020-06-11] MEDS: DOCUSATE SODIUM 100MG CAPSULE PO SCH ×2 (08:08→20:11)
[2020-06-11] MEDS: SENOKOT S TAB PO SCH ×2 (08:09→20:11)
--- NOTE | 2020-06-11 08:14 | REP ---
INDICATION: Chest Tube COMPARISON: 06/10/2020 TECHNIQUE: PA and lateral. FINDINGS: Lines and tubes are stable. Bilateral pleuroparenchymal changes and subcutaneous emphysema again noted and similar to prior examination. No obvious new acute process. IMPRESSION: No significant change from prior examination. <Electronically signed by David Green > 06/11/20 0817
[2020-06-11] MEDS ORDERED: propofoL 200 MG/20 ML VIAL As Ordered ONE (08:46)
[2020-06-11] MEDS ORDERED: LIDOCAINE 2% 100MG/5ML SDV (FOR ANES.) As Ordered ONE (08:46)
[2020-06-11] MEDS ORDERED: ROCURONIUM BROMIDE 50 MG/5 ML VIAL As Ordered ONE (08:46)
[2020-06-11] MEDS ORDERED: ONDANSETRON 4MG/2ML VIAL As Ordered ONE (08:47)
[2020-06-11] MEDS ORDERED: dexameTHASONE 4 MG/ML 1ML VIAL (J1100 PER 1MG) As Ordered ONE (08:47)
[2020-06-11] MEDS ORDERED: fentaNYL 100 MCG/2 ML INJECTION (J3010) As Ordered ONE ×2 (08:47→10:22)
[2020-06-11] MEDS: SODIUM CHLORIDE 0.9% INJ 10 ML SYR IV SCH (09:00)
[2020-06-11] MEDS ORDERED: CETACAINE SPRAY 5GM As Ordered ONE ×2 (09:41→10:35)
[2020-06-11] MEDS ORDERED: SODIUM CHLORIDE 0.9% 1000ML IV PRN (10:30)
[2020-06-11] MEDS ORDERED: PHENYLephrine 500MCG 5ML (100MCG/ML) SYRINGE As Ordered ONE (11:12)
[2020-06-11] MEDS ORDERED: CALCIUM CHLORIDE 10% 1 GM/10 ML SYR As Ordered ONE (11:12)
[2020-06-11] MEDS ORDERED: SUGAMMADEX SODIUM 500 MG/5 ML VIAL (BRIDION) As Ordered ONE (11:16)
[2020-06-11] MEDS ORDERED: HYDROMORPHONE HCL 0.5 MG/ 0.5 ML SYRINGE (J1170 PER 1) IV PRN (11:45)
[2020-06-11] MEDS ORDERED: fentaNYL 100 MCG/2 ML INJECTION (J3010) IV PRN (11:45)
[2020-06-11] MEDS ORDERED: oxyCODONE 5MG TAB PO PRN (11:45)
[2020-06-11] MEDS ORDERED: ONDANSETRON 4MG/2ML VIAL IV PRN (11:45)
--- NOTE | 2020-06-11 12:35 | REP ---
INDICATION: BPF. COMPARISON: 06/11/2020 7:53 a.m. TECHNIQUE: SINGLE PORTABLE AP VIEW OF THE CHEST WAS PERFORMED. FINDINGS: Opacities in the right lung are stable. Opacities in the left lung are stable. Left pneumothorax is unchanged. Two left chest tubes are again noted, not definitely changed in position. There are bilateral central venous catheter is unchanged. IMPRESSION: Stable exam. <Electronically signed by Garo Cabrera > 06/11/20 1231
--- NOTE | 2020-06-11 12:49 | RO ---
OPERATIVE NOTE DATE OF OPERATION: 06/11/2020 PREOPERATIVE DIAGNOSIS: Bronchopleural fistula left. POSTOPERATIVE DIAGNOSIS: Bronchopleural fistula left. FINDINGS: Smoker's airways. PROCEDURE: Bronchoscopy with balloon occlusion, Tisseel administration to the superior basal segment of the left lower lobe. SURGEON: Adis Acosta DO, [facility] MA[facility] SCIENTIFIC: Dr. Asif ANESTHESIA: General. Please refer to their records for details. SPECIMEN: None obtained. ESTIMATED BLOOD LOSS: Less than 5 mL. COMPLICATIONS: None observed. Postprocedure chest x-ray still pending. DESCRIPTION OF PROCEDURE: After informed consent was reviewed with the patient in the preoperative area, he was taken back to OR #8. He was intubated with 9.0 endotracheal tube and case was handed over. Time out was then performed in which two patient identifiers, identifying correct site, and correct procedure. Name and date of correlated with radiology on CT. Clearly demonstrates bronchopleural fistula on left with persistent air leak. Cetacaine spray was then used to anesthetize the airway and provide lubrication for the 1T-190 bronchoscope which was inserted into the endotracheal tube. Airways were viewed. There were minimal amounts of mucous, mucosa was fairly pale. Temitope was sharp. Right and left mainstem was normal with minimal pitting. RB1 through 10 was inspected without endobronchial lesions, spur between right upper lobe and right middle lobe was normal and the right mainstem bronchus was fairly normal. After inspection of the right airway the left airway was inspected. There were no endobronchial lesions in LB 1 through 10, minimal amounts of mucous and pitting. I then performed balloon occlusion of multiple segments of the airway. There was a persistent air leak with occlusion of the entire left upper lobe, therefore targeting the left lower lobe as the likely source. With occlusion of the left mainstem the leak resolved. Balloon was then advanced into anterolateral basal segment, just above the anterior, lateral and posterior basal segment takeoff excluding the superior basal segment with persistent air leak. Balloon once inserted into the superior basal segment, air leak stopped. This was tested multiple times to ensure that this is the most likely site of the persistent bronchopleural fistula. With the balloon in place in the airway that was isolated the Tisseel catheter was then advanced adjacent to the deflated balloon. The balloon was extracted and Tisseel was administered to the level of the superior basal segment takeoff. After Tisseel was administered scope was removed with catheter remaining in place. Second scope was placed down to view the area. Anterior, lateral, and posterior basal segments remained patent. Superior basal segment was occluded, the patient now on water seal. Will perform postprocedure chest x-ray. The patient was extubated, no observed complications. AI
[2020-06-11] MEDS: PANTOPRAZOLE 40MG TAB (PROTONIX) PO SCH (14:45)
[2020-06-11] MEDS: BENZONATATE 100 MG CAP PO SCH ×3 (14:45→20:11)
[2020-06-11] MEDS: ASPIRIN 81 MG CHEW TABLET PO SCH (14:45)
[2020-06-11] MEDS: ENOXAPARIN 80MG/0.8ML SYRINGE (J1650 PER 10MG) SC SCH (14:47)
[2020-06-12] VITALS: BP 114/69
[2020-06-12] MEDS: LEVALBUTEROL 1.25 MG/0.5 ML CONCENTRATE NEB NEB SCH ×4 (00:48→20:00)
[2020-06-12 04:00] VITALS: BP 121/58
[2020-06-12] MEDS: METOCLOPRAMIDE INJ 10MG/2ML VIAL (J2765 PER 1) IV SCH ×3 (04:53→18:36)
[2020-06-12 05:19] LABS: HEMATOCRIT 30.4 % (42.0-52.0); MEAN CORPUSCULAR HEMOGLOBIN 29.5 pg (27.0-33.0); MEAN CORPUSCULAR HGB CONC 29.6 g/dl (32.0-36.5); MEAN CORPUSCULAR VOLUME 99.7 fl (80.0-96.0); PLATELET COUNT, AUTOMATED 225 10^3/uL (150-450); RED BLOOD COUNT 3.05 10^6/uL (4.30-6.10); WHITE BLOOD COUNT 9.8 10^3/uL (4.0-10.0)
[2020-06-12 05:58] LABS: CALCIUM LEVEL 7.9 MG/DL (8.8-10.2); CREATININE FOR GFR 4.77 MG/DL (0.70-1.30); GLOMERULAR FILTRATION RATE 12.7 (>42); POTASSIUM SERUM 4.5 MEQ/L (3.5-5.1)
[2020-06-12 07:30] VITALS: BP 126/73
--- NOTE | 2020-06-12 07:52 | IPNPDOC ---
Text Note Date of Service The patient was seen on 06/12/20. NOTE Subjective: She was seen and examined this morning at bedside. Patient had a surgery with Dr. Acosta and Dr. Asif yesterday to try to control the air leak. Patient has chest tube in place. Says his pain is under control. There is no acute overnight events. He was too weak yesterday after surgery to undergo dialysis which was deferred to today. Objective: Constitutional: Awake and alert, in no apparent distress ENT: Sclera are clear Respiratory: Appears to be breathing comfortably has a left-sided chest tube in place with diminished breath sounds on the left lung base Cardiovascular: RRR S1 and S2 are normal Gastrointestinal: Abdomen is soft, non distended, non tender Musculoskeletal: No peripheral edema Neurologic: No focal neurological deficit. Mental Status: A&O x3, normal affect Skin: Warm, dry Assessment/plan: 75-year-old male with metastatic cancer very sick with a left-sided chest tube in place to manage it large hydropneumothorax # Left-sided hydropneumothorax: Chest tube in place. Managed by Dr. Asif CT surgery. Went to the OR with Dr Acosta and Dr Asif 06/11/20 in an attempt to control the patients left bronchopleural fistula with balloon occlusion and tisseel glue application. Time will tell if this has worked. # ESRD: on HD MWF. managed by nephrology. # Pancreatic cancer: with mets to the lung. Poor prognosis. # hypercoagulable state: due to underlying malignancy. he's on full dose lovenox and ASA. has AV fistulae and permacath thrombosis. # A fib: had an episode but currently back to sinus. He's already anticoagulated if this is paroxysmal. # ACD: stable hgb. likely 2/2 to his ESRD and malignancy. # DVT prophylaxis: on lovenox. A [facility] Hospitalist Rick CHAVEZ, I+O VSRick I+O Laboratory Tests 06/12/20 04:54 Vital Signs Date Time Temp Pulse Resp B/P (MAP) Pulse Ox O2 Delivery O2 Flow Rate FiO2 06/12/20 07:30 96.9 80 18 126/73 (90) 95 Nasal Cannula 2.0 I&O- Last 24 Hours up to 6 AM 06/12/20 06:00 Intake Total 820 ml Output Total 385 ml Balance 435 ml DIDIER QUINN MD Jun 12, 2020 07:52
--- NOTE | 2020-06-12 08:19 | REP ---
INDICATION: BPF COMPARISON: 06/11/2020 TECHNIQUE: PA and lateral. FINDINGS: Lines and tubes in stable position. Bilateral pleuroparenchymal changes including moderate left hydropneumothorax and scattered bilateral airspace disease essentially unchanged from prior examination. IMPRESSION: No significant change from prior examination. <Electronically signed by David Green > 06/12/20 0802
[2020-06-12] MEDS: PANTOPRAZOLE 40MG TAB (PROTONIX) PO SCH (08:25)
[2020-06-12] MEDS: BENZONATATE 100 MG CAP PO SCH ×3 (08:25→20:24)
[2020-06-12] MEDS: ASPIRIN 81 MG CHEW TABLET PO SCH (08:25)
[2020-06-12] MEDS: DOCUSATE SODIUM 100MG CAPSULE PO SCH ×2 (08:27→20:23)
[2020-06-12] MEDS: MOM 30ML SUSPENSION UDC PO SCH (08:27)
[2020-06-12] MEDS: SODIUM CHLORIDE 0.9% INJ 10 ML SYR IV SCH (08:27)
[2020-06-12] MEDS: SENOKOT S TAB PO SCH ×2 (08:28→20:24)
[2020-06-12] MEDS: MIRALAX *UNIT DOSE* 17GM PACKET PO SCH ×2 (08:28→20:24)
[2020-06-12] MEDS ORDERED: SODIUM CHLORIDE 0.9% 1000ML IV PRN (10:30)
[2020-06-12 12:27] VITALS: BP 121/66
[2020-06-12] MEDS: ENOXAPARIN 80MG/0.8ML SYRINGE (J1650 PER 10MG) SC SCH (12:55)
--- NOTE | 2020-06-12 13:32 | IPN ---
PROGRESS NOTE DATE: 06/12/2020 SUBJECTIVE: Patient is seen and examined in the hemodialysis unit today receiving his maintenance treatment. He is status post bronchoscopy yesterday with Dr. Acosta with a balloon occlusion of the bronchopleural fistula. He still has a chest tube. He is tolerating his dialysis treatment without any issues. PHYSICAL EXAMINATION: VITAL SIGNS: Temperature 97.3, pulse 79, respiratory rate 18, blood pressure 121/66, saturating 93 to 97% on 2 liter nasal cannula. INTAKE AND OUTPUT: Weight in the bed scale today is not recorded. Dialysis goal fluid removal is only 500 cc. GENERAL: Patient is seen awake, alert, receiving his treatment, in no apparent distress. HEENT: Extraocular muscles are intact. Tongue is moist. NECK: Supple. LUNGS: There is a tunneled hemodialysis catheter in the left chest wall that is in use. There is a left-sided chest tube as well. There are diminished breath sounds on the left lung base. HEART: Sounds are regular, S1, S2. There is no peripheral edema. ABDOMEN: Soft and nontender. EXTREMITIES: No clubbing, cyanosis or edema. There is some lean muscle wasting. NEUROLOGIC: He is oriented x3, interactive and at baseline mentation. SKIN: Warm and dry. LABORATORY DATA: White count 9.8, hemoglobin 9.0, platelets 225,000. Sodium 141, potassium 4.5, BUN 44. IMAGING: Chest x-ray today, 06/12/2020, shows moderate left hydropneumothorax. INPATIENT MEDICATIONS: Reviewed by myself. He was started on Tessalon Perles yesterday. Remainder of his medications are unchanged as compared to yesterday. PROBLEMS: 1. End-stage renal disease: His maintenance schedule is Tuesday, Tuesday, Tuesday. He is off of his usual schedule as we chose not to dialyze him status post his bronchoscopy. He is dialyzed today. His next treatment will be on Tuesday and then we will return him next week to his usual Tuesday, Tuesday, Tuesday schedule. His electrolytes and volume status are acceptable. No change is being made to the current prescription. 2. Left-sided hydropneumothorax; status post bronchoscopy yesterday with balloon occlusion of the area of bronchopleural fistula: He has a left-sided chest tube and he will continue follow-up with Dr. Asif and Dr. Acosta. 3. Anemia of chronic renal failure and also related to malignancy: Hemoglobin is down to 9.0 today and he continues on Aranesp with his treatments.
[2020-06-12 16:00] VITALS: BP 102/65
[2020-06-12 18:48] VITALS: BP 105/58
[2020-06-13 00:14] VITALS: BP 98/55
[2020-06-13] MEDS: LEVALBUTEROL 1.25 MG/0.5 ML CONCENTRATE NEB NEB SCH ×4 (02:00→19:49)
[2020-06-13] MEDS: METOCLOPRAMIDE INJ 10MG/2ML VIAL (J2765 PER 1) IV SCH ×2 (03:00→11:41)
[2020-06-13 04:51] VITALS: BP 102/60
[2020-06-13 07:40] VITALS: BP 108/65
[2020-06-13 07:47] LABS: HEMATOCRIT 29.5 % (42.0-52.0); HEMOGLOBIN 8.6 g/dl (13.5-17.5); MEAN CORPUSCULAR HEMOGLOBIN 29.1 pg (27.0-33.0); MEAN CORPUSCULAR HGB CONC 29.2 g/dl (32.0-36.5); MEAN CORPUSCULAR VOLUME 99.7 fl (80.0-96.0); PLATELET COUNT, AUTOMATED 190 10^3/uL (150-450); RED BLOOD COUNT 2.96 10^6/uL (4.30-6.10); WHITE BLOOD COUNT 7.9 10^3/uL (4.0-10.0)
[2020-06-13 08:12] LABS: CALCIUM LEVEL 7.3 MG/DL (8.8-10.2); CREATININE FOR GFR 3.55 MG/DL (0.70-1.30); GLOMERULAR FILTRATION RATE 17.9 (>42)
--- NOTE | 2020-06-13 08:38 | IPN ---
PROGRESS NOTE DATE: 06/12/2020 SUBJECTIVE: I saw Mr. Acosta later this evening after his dialysis. I am quite grateful that his chest tube is not showing any air leak and the chest tube output is markedly diminished. He is breathing well. VITAL SIGNS: His vital signs show a T-max of 98.7 with a heart rate that ranges between 70 and 84 and is sinus rhythm, respiratory rate is constant at 18, 93 to 97% saturated on 2 liters nasal cannula, and his blood pressure ranges between 102/65 to 126/73. INTAKE AND OUTPUT: His intake and output over the past 24 hours has been recorded as 700 in and 525 out per a positivity of 175 ccs. He has put out 120 ml out the chest tube and there is no air leak. His weight is pending today. PHYSICAL EXAMINATION: His lungs show decreased breath sounds on the left side with full breath sounds on the right side with some inspiratory rales on the right side. Percussion and auscultation is full to the diaphragm on either side with some hyperresonance on the left side. Cardiac exam is without murmurs, clicks, gallops or rubs. I cannot feel his PMI. S1 and S2 are normal. Abdomen is soft, nontender, bowel sounds are positive. There is no hepatomegaly. No CVA tenderness. Extremities show no pretibial edema. No calf tenderness .No differential swelling of the upper extremities. Skin is warm, dry and perfused without cyanosis or mottling. There is no edema. Neck is supple. There is no jugular venous distention. No subcutaneous emphysema. Trachea is midline. Mouth shows the mucous membranes to be pink and moist. Lips and commissures without lesions. No thrush. Eyes show his pupils to be equal and reactive. Extraocular motion intact. Sclerae anicteric. Neurologic shows II-XII intact. Normal gross motor, gross sensation intact. Gait is not tested. Psychiatric shows him to be awake, alert, and conversational. LABORATORY DATA: His white count today is 9.8 with a hemoglobin and hematocrit of 9.0 and 30.4 respectively with a platelet count of 225,000. There is no differential on him. His electrolytes are essentially normal with a BUN and creatinine of 44 and 4.77 prior to dialysis this morning. Glucose is 83 with a calcium of 7.9. His chest x-ray today shows no change in his airspace. There is no increase in his subcutaneous emphysema and in fact there was a decrease. Chest tube has been placed as well as a PleurX catheter. I do not see an area of consolidation or postobstructive atelectasis from the Tisseel glue occlusion of his superior basilar segment of bronchus. PLAN AND DISCUSSION: The glue will most likely dissipate in the next three days. It will be at that time that we will be expecting a recurrence of the air leak if it does not seal on its own. I was contemplating placing a blood patch, however that is accompanied with a complication of an empyema with blood being instilled via the chest tube. I am content to watch him the next few days. Hopefully, the air leak will stop on its own and be sealed on its own. We can always repeat the bronchoscopic occlusion.
--- NOTE | 2020-06-13 08:40 | REP ---
INDICATION: BPF. COMPARISON: Comparison chest x-ray June 12, 2020. TECHNIQUE: Two views.. FINDINGS: Two left pleural drainage catheters remain in place. A small to moderate-sized left-sided hydropneumothorax persists unchanged from the previous day's radiograph. Much of the pleural air is posterior to the long on the lateral film. Bilateral central venous lines are again noted in place unchanged in position. There is a coarse linear opacity in the right perihilar region unchanged and linear fibrosis seen in the right base unchanged. Some soft tissue emphysema persists bilaterally in the extra thoracic soft tissues. IMPRESSION: Stable appearing left-sided hydropneumothorax.. <Electronically signed by Edwin Wood > 06/13/20 0807
[2020-06-13] MEDS: DOCUSATE SODIUM 100MG CAPSULE PO SCH ×3 (09:00→21:00)
[2020-06-13] MEDS: SENOKOT S TAB PO SCH ×3 (09:00→21:00)
[2020-06-13] MEDS: MIRALAX *UNIT DOSE* 17GM PACKET PO SCH ×3 (09:00→21:00)
[2020-06-13] MEDS: MOM 30ML SUSPENSION UDC PO SCH ×2 (09:00→09:23)
[2020-06-13] MEDS: PANTOPRAZOLE 40MG TAB (PROTONIX) PO SCH (09:23)
[2020-06-13] MEDS: ASPIRIN 81 MG CHEW TABLET PO SCH (09:23)
[2020-06-13] MEDS: BENZONATATE 100 MG CAP PO SCH ×3 (09:25→21:19)
--- NOTE | 2020-06-13 10:11 | IPN ---
PROGRESS NOTE DATE: 06/11/20 SUBJECTIVE: I am seeing Mr. Acosta post-operatively after we undertook a bronchial occlusion of the apical basilar segment of the left lower lobe to stop an air leak. This was accomplished essentially by Dr. Acosta with me in assistance. The bronchus was isolated which stopped the air leak and it was then filled with TISSEEL glue. It seems like he is doing quite well. He did go to dialysis after surgery today. His air leak is now stopped and he is breathing comfortably. I have taken him off suction and I am trying to suppress his cough for the next 3 days until his air leak will seal spontaneously. My thought process is I do not want to dislodge the TISSEEL glue and occlude the bronchus. His vital signs show a T-max of 98.8 with a heart rate that ranges between 68-78 in a predominantly sinus rhythm. Respiratory rate 16-18 without the use of accessory muscles, 94 percent saturated on 2 liters nasal cannula and his blood pressure is ranging between 161/74 to 100/61. His intake and output the past 24 hours has been recorded as 656 in and 680 out with 310 mL out of the chest tube. This morning there was a rolling air leak. His weight today is 77.3 kg compared to 79.2 kg yesterday. PHYSICAL EXAMINATION: On physical examination this evening he has decreased breath sounds on the left side, but I do not hear the whistles and squeaks from the air leak. The right side shows normal vesicular sounds. Percussion notes are full to the diaphragm. Cardiac: He is without murmurs, click, gallops, rubs. I cannot feel his PMI. S1 and S2 are normal. Abdomen: Soft, nontender, bowel sounds are positive. There is no hepatomegaly, no CVA tenderness. Extremities: No pretibial edema, no calf tenderness, no differential swelling of the upper extremities. Skin: Warm and dry and perfused without cyanosis or mottling including that of nailbeds and knees. Neck: Supple. There is no jugular venous distention, no subcutaneous emphysema, trachea is midline. HEENT: Mouth shows his mucous membranes to be pink and moist. Lips, gums, tongue show no thrush. Eyes show his pupils to be equal and reactive, extraocular movements are intact, sclerae nonicteric. Neuro: CN II-XII intact with gross motor, gross sensation intact. Gait is not tested. Psychiatric: Shows him to be awake and alert, oriented times 3 with appropriate mood and affect and conversational. LABORATORY DATA: His white count this morning 9.2, hemoglobin and hematocrit 9.7 and 32.3, platelet count 220. His chemistries showed normal electrolytes with a sodium of 137, potassium 5. BUN and creatinine 44 and 4.44 respectively. Glucose 81 with a calcium of 7.3. RADIOLOGY STUDIES: His chest x-ray was unchanged from yesterday till this morning. It still showed the lungs approximately 1.5 cm away from the chest wall. IMPRESSION: 1. Hydropneumothorax controlled with chest tube. 2. 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 3. Entrapped lung with residual airspace continuing. 4. Metastatic pancreatic carcinoma to the left lung with cavitary lesions bilaterally in each lung. 5. Bigeminy controlled. 6. Chronic renal disease requiring dialysis. 7. Tobacco abuse. 8. BPH. 9. New onset atrial fibrillation resolved. PLAN/DISCUSSION: We will keep his to chest to wall suction and suppress his cough. We do run the risk of a developing pneumonia from postobstructive atelectasis. My strategy as noted above is to keep the TISSEEL glue from being dislodged with forceful coughing. To that point I am giving him Tessalon Perles 200 mg three times a day.
--- NOTE | 2020-06-13 10:49 | IPNPDOC ---
Text Note Date of Service The patient was seen on 06/13/20. NOTE Subjective: She was seen and examined this morning at bedside. Patient is sitting up at bedside having breakfast. Says he feels good today has no complaints. Says his mood is better. There is no acute overnight events. Objective: Constitutional: Awake and alert, in no apparent distress ENT: Sclera are clear Respiratory: Appears to be breathing comfortably has a left-sided chest tube in place Cardiovascular: RRR S1 and S2 are normal Gastrointestinal: Abdomen is soft, non distended, non tender Musculoskeletal: No peripheral edema Neurologic: No focal neurological deficit. Mental Status: A&O x3, normal affect Skin: Warm, dry Assessment/plan: 75-year-old male with metastatic cancer very sick with a left-sided chest tube in place to manage it large hydropneumothorax # Left-sided hydropneumothorax: Chest tube in place. Managed by Dr. Asif CT surgery. Went to the OR with Dr Acosta and Dr Asif 06/11/20 in an attempt to control the patients left bronchopleural fistula with balloon occlusion and tisseel glue application. Time will tell if this has worked once glue dissipates we will find if the air leak has been sealed # ESRD: on HD MWF. managed by nephrology. # Pancreatic cancer: with mets to the lung. Poor prognosis. # hypercoagulable state: due to underlying malignancy. he's on full dose lovenox and ASA. has AV fistulae and permacath thrombosis. # A fib: had an episode but currently back to sinus. He's already anticoagulated if this is paroxysmal. # ACD: stable hgb. likely 2/2 to his ESRD and malignancy. # DVT prophylaxis: on Lovenox. A [facility] Hospitalist Rick CHAVEZ, I+O Rick CHAVEZ I+O Laboratory Tests 06/13/20 07:30 Vital Signs Date Time Temp Pulse Resp B/P (MAP) Pulse Ox O2 Delivery O2 Flow Rate FiO2 06/13/20 07:40 98.1 66 18 108/65 (79) 94 Room Air 06/12/20 12:30 2.0 I&O- Last 24 Hours up to 6 AM 06/13/20 06:00 Intake Total 1070 ml Output Total 1190 ml Balance -120 ml DIDIER QUINN MD Jun 13, 2020 10:49
[2020-06-13] MEDS: ENOXAPARIN 80MG/0.8ML SYRINGE (J1650 PER 10MG) SC SCH (11:40)
[2020-06-13] MEDS: SODIUM CHLORIDE 0.9% INJ 10 ML SYR IV SCH (11:41)
[2020-06-13 12:00] VITALS: BP 130/68
--- NOTE | 2020-06-13 12:10 | IPN ---
PROGRESS NOTE DATE: 06/13/2020 SUBJECTIVE: Mr. Acosta is not complaining of shortness of breath and is lying comfortably in bed. I do not see an air leak today, although the nursing staff saw a small air leak when he was sitting up. I have not asked him to cough yet. OBJECTIVE: VITAL SIGNS: Show a T-max of 98.7 with a heart rate that ranges between 77 and 66 in sinus rhythm. Respiratory rate of 17 to 18 without the use of accessory muscles. He was 94% saturated on room air and his blood pressure is ranging between 108/65 to 98/55. INTAKE AND OUTPUT: Over the past 24 hours has been recorded as 960 in and 1245 out for a negativity of 285 mL. He has put out 370 mL from the chest tube. Weight today is 75.1 kg compared to 77.3 kg yesterday. RESPIRATORY: His lungs show markedly decreased breath sounds on the left side, but I do hear air flow on the left side. He has some scattered rhonchi and rales on the right side during late inspiration. Percussion notes are full to the diaphragm. CARDIAC: Without murmurs, clicks, gallops, or rubs. I cannot feel his PMI. S1 and S2 are normal. ABDOMEN: Soft and nontender. Bowel sounds are positive. There is no hepatomegaly. No CVA tenderness. EXTREMITIES: Show no pretibial edema. No calf tenderness. No differential swelling of the upper extremities. SKIN: Warm, dry, and perfused without cyanosis or mottling, including that of the nail beds and knees. NECK: Supple. There is no jugular venous distention. No subcutaneous emphysema. Trachea is midline. MOUTH: Shows the mucous membranes to be pink and moist. Lips and gums without lesions and no thrush. EYES: Show his pupils equal and reactive. Extraocular movements are intact. Sclerae nonicteric. NEUROLOGIC: Shows II through XII intact. Normal gross motor, gross sensation intact. Gait is not tested. PSYCHIATRIC: Shows him to be awake, alert, and oriented x3 with appropriate mood and affect and conversational. LABORATORY DATA: His white count today is 7.9 with a hemoglobin and hematocrit of 8.6 and 29.5 respectively, essentially unchanged from yesterday. Platelet count is 190,000. There is no differential. Electrolytes are essentially normal with a BUN and creatinine of 22 and 3.55. He underwent dialysis yesterday. Glucose is 81 with a calcium of 7.3. IMAGING DATA: His chest x-ray today again shows his lung unchanged in its expansion on the left side. There is a little bit more subcutaneous emphysema. IMPRESSION: 1. Hydropneumothorax controlled with a chest tube. 2. Alveolopleural or bronchopleural fistula resolving. 3. Entrapped lung with residual airspace continuing. 4. Metastatic pancreatic carcinoma to the left lung with cavitary lesions bilaterally in each lung. 5. Bigeminy controlled. 6. Chronic renal disease requiring dialysis. 7. Tobacco abuse. 8. BPH. 9. New onset atrial fibrillation, resolved. PLAN AND DISCUSSION: I will continue him on WaterSeal. We will wait the next few days to make sure that the air leak will in deed stop. I am bit concerned that the nursing staff saw an air leak this morning, although it may be secondary to the residual airspace that he already has forcing that air out. The air leak certainly is not rolling as it was. I no longer hear the squeaks and whistles of an air leak that I heard prior to occluding his bronchus.
[2020-06-13 15:53] VITALS: BP 103/59
[2020-06-13 20:00] VITALS: BP 124/68
[2020-06-13] MEDS: METOCLOPRAMIDE 10 MG TAB PO SCH (21:19)
[2020-06-14] VITALS: BP 135/75
[2020-06-14] MEDS: LEVALBUTEROL 1.25 MG/0.5 ML CONCENTRATE NEB NEB SCH ×4 (01:10→19:54)
[2020-06-14] MEDS: MORPHINE 2 MG/ML 1ML VIAL (J2270) IV PRN (03:10)
[2020-06-14 04:00] VITALS: BP 109/67
[2020-06-14] MEDS: METOCLOPRAMIDE 10 MG TAB PO SCH ×3 (06:14→21:03)
[2020-06-14] MEDS: ACETAMINOPHEN TAB 650MG DOSE (2X325MG) PO PRN ×2 (06:15→21:03)
[2020-06-14 06:40] LABS: HEMOGLOBIN 9.7 g/dl (13.5-17.5); MEAN CORPUSCULAR HEMOGLOBIN 29.1 pg (27.0-33.0); MEAN CORPUSCULAR HGB CONC 29.4 g/dl (32.0-36.5); MEAN CORPUSCULAR VOLUME 99.1 fl (80.0-96.0); PLATELET COUNT, AUTOMATED 204 10^3/uL (150-450); RED BLOOD COUNT 3.33 10^6/uL (4.30-6.10); WHITE BLOOD COUNT 10.4 10^3/uL (4.0-10.0)
[2020-06-14 07:52] LABS: CALCIUM LEVEL 7.4 MG/DL (8.8-10.2); CREATININE FOR GFR 3.81 MG/DL (0.70-1.30); GLOMERULAR FILTRATION RATE 16.5 (>42); POTASSIUM SERUM 4.5 MEQ/L (3.5-5.1)
[2020-06-14 08:00] VITALS: BP 110/57
--- NOTE | 2020-06-14 08:20 | REP ---
INDICATION: BPF. COMPARISON: Comparison chest x-ray 13 June 2020. TECHNIQUE: Two views.. FINDINGS: Two left pleural drainage catheters remain in place. The left-sided hydropneumothorax is again seen essentially unchanged. Visceral and parietal pleural thickening are noted unchanged. There is coarse platelike atelectasis in the right base and right perihilar region no new infiltrate. Cardiomediastinal silhouette is unchanged. A right-sided [id number] and a left-sided internal jugular central venous catheter remain in place unchanged in position. IMPRESSION: Stable left-sided hydropneumothorax with [address].. <Electronically signed by Edwin Wood > 06/14/20 0890
[2020-06-14] MEDS: SENOKOT S TAB PO SCH ×2 (09:00→21:00)
[2020-06-14] MEDS: MIRALAX *UNIT DOSE* 17GM PACKET PO SCH ×2 (09:00→21:00)
[2020-06-14] MEDS: DOCUSATE SODIUM 100MG CAPSULE PO SCH ×2 (09:00→21:00)
[2020-06-14] MEDS: MOM 30ML SUSPENSION UDC PO SCH (09:00)
[2020-06-14] MEDS: PANTOPRAZOLE 40MG TAB (PROTONIX) PO SCH (09:04)
[2020-06-14] MEDS: ASPIRIN 81 MG CHEW TABLET PO SCH (09:04)
[2020-06-14] MEDS: SODIUM CHLORIDE 0.9% INJ 10 ML SYR IV SCH (09:06)
[2020-06-14] MEDS ORDERED: SODIUM CHLORIDE 0.9% 1000ML IV PRN (09:15)
--- NOTE | 2020-06-14 11:50 | IPN ---
PROGRESS NOTE DATE: 06/14/2020 SUBJECTIVE: Mr. Acosta is sitting up comfortably. I see no air leak today, although the nursing staff does report an intermittent air leak. OBJECTIVE: VITAL SIGNS: Show a T-max of 100.3. He has no defervesced to 98.1. Heart rate that ranges between 73 and 83 in sinus rhythm. Respiratory rate of 16 to 18 without the use of accessory muscles. He was 94% to 95% saturated on room air and whose blood pressure is ranging between 109/67 to 135/75. INTAKE AND OUTPUT: Over the past 24 hours has been recorded as 1930 in and 556 out for a positivity of 1374 mL. He has put 225 mL out the chest tube. Weight is pending today. RESPIRATORY: His lungs show decreased breath sounds on the left side. The right side shows some scattered rhonchi. I have not asked him to cough. Percussion notes are full to the diaphragm. CARDIAC: Without murmurs, clicks, gallops, or rubs. I cannot feel his PMI. S1 and S2 are normal. ABDOMEN: Soft and nontender. Bowel sounds are positive. There is no hepatomegaly. No CVA tenderness. EXTREMITIES: Show no pretibial edema. No calf tenderness. No differential swelling of the upper extremities. SKIN: Warm, dry, and perfused without cyanosis or mottling, including that of the nail beds and knees. NECK: Supple. There is no jugular venous distention. No subcutaneous emphysema. Trachea is midline. MOUTH: Shows the mucous membranes to be pink and moist. Lips and gums without lesions and no thrush. EYES: Show his pupils equal and reactive. Extraocular movements are intact. Sclerae nonicteric. NEUROLOGIC: Shows II through XII intact. Normal gross motor, gross sensation intact. Gait is not tested. PSYCHIATRIC: Shows him to be awake, alert, and oriented x3 with appropriate mood and affect and conversational. DIAGNOSTIC STUDIES: His white count is 10.4 up from 7.9 yesterday. Hemoglobin and hematocrit are 9.7 and 33.0 improved from 8.6 and 29.5 yesterday. Platelet count is 204,000. There is no differential. Electrolytes are essentially normal with a BUN and creatinine of 27 and 3.81 with a glucose of 83 and a calcium of 7.4. He is due for dialysis today. His chest x-ray today shows a new air fluid level on the left side. The lung, however, is still at the same level of distance from the chest wall. There is very little subcutaneous emphysema. IMPRESSION: 1. Hydropneumothorax controlled with a chest tube. 2. Alveolopleural or bronchopleural fistula resolving. 3. Entrapped lung with residual airspace continuing. 4. Metastatic pancreatic carcinoma of the left lung with cavitary lesions bilaterally in each lung. 5. Bigeminy controlled. 6. Chronic renal disease requiring dialysis. 7. Tobacco abuse. 8. BPH. 9. Onset of atrial fibrillation, resolved. PLAN AND DISCUSSION: I will continue his chest tube to suction. If the x-ray is unchanged tomorrow, I will clamp the chest tube. I fully expect the fluid to reaccumulate as his lung is already entrapped.
--- NOTE | 2020-06-14 12:51 | IPNPDOC ---
Text Note Date of Service The patient was seen on 06/14/20. NOTE Subjective: She was seen and examined this morning at bedside. Patient is sitting up at bedside having breakfast. Says he feels good today has no complaints. States he is comfortable and Dr. Asif had just seen him a few moments earlier and discuss plans to clamp the chest tube tomorrow if the x-rays unchanged. There is no acute overnight events. Objective: Constitutional: Awake and alert, in no apparent distress ENT: Sclera are clear Respiratory: Appears to be breathing comfortably has a left-sided chest tube in place Cardiovascular: RRR S1 and S2 are normal Gastrointestinal: Abdomen is soft, non distended, non tender Musculoskeletal: No peripheral edema Neurologic: No focal neurological deficit. Mental Status: A&O x3, normal affect Skin: Warm, dry Assessment/plan: 75-year-old male with metastatic cancer very sick with a left-sided chest tube in place to manage it large hydropneumothorax # Left-sided hydropneumothorax: Chest tube in place. Managed by Dr. Asif CT surgery. Went to the OR with Dr Acosta and Dr Asif 06/11/20 in an attempt to control the patients left bronchopleural fistula with balloon occlusion and tisseel glue application. Time will tell if this has worked once glue dissipates we will find if the air leak has been sealed. Dr. Asif plans to clamp the chest tube tomorrow if the x-rays unchanged # ESRD: on HD MWF. managed by nephrology. # Pancreatic cancer: with mets to the lung. Poor prognosis. # hypercoagulable state: due to underlying malignancy. he's on full dose lovenox and ASA. has AV fistulae and permacath thrombosis. # A fib: had an episode but currently back to sinus. He's already anticoagulated if this is paroxysmal. # ACD: stable hgb. likely 2/2 to his ESRD and malignancy. # DVT prophylaxis: on Lovenox. [facility] Rick CHAVEZ, I+O Rick CHAVEZ, I+O Laboratory Tests 06/14/20 06:20 06/14/20 07:15 Vital Signs Date Time Temp Pulse Resp B/P (MAP) Pulse Ox O2 Delivery O2 Flow Rate FiO2 06/14/20 08:00 98.1 73 16 110/57 (74) 95 Room Air 06/12/20 12:30 2.0 I&O- Last 24 Hours up to 6 AM 06/14/20 06:00 Intake Total 1580 ml Output Total 616 ml Balance 964 ml DIDIER QUINN MD Jun 14, 2020 12:50
--- NOTE | 2020-06-14 14:02 | IPN ---
PROGRESS NOTE DATE: 06/14/2020 Patient seen and examined this morning at the bedside. He was dialyzed yesterday with half a liter removed. He denies any new complaints. Denies shortness of breath at rest. Continues with chest tube on the left and is followed by Dr. Asif. Reports his appetite is good. Vital signs: Temperature 98.2, pulse 78, respiratory rate 18, blood pressure 124/68, saturating 95% on room air. Intake yesterday was 960. Dialysis removed 500. Chest tube drainage was 370, and urine output was 375. Weight in the bed scale today is 75.1 kg. General: Patient is seen awake, alert, elderly male, frail, in no apparent distress. Extraocular muscles are intact. Tongue is moist. Neck is supple. There is a Perm-A-Cath present in the left chest wall with dressing. There is a left-sided chest tube as well. There are diminished breath sounds on the left lung. He has a graft in the arm that is nonfunctional. Heart sounds are regular, S1, S2. There is no peripheral edema. Abdomen is soft and nontender. Extremities are negative for clubbing or cyanosis. There is some lean muscle wasting. Neurologic: He is oriented times three, interactive, and at baseline mentation. Skin warm and dry. LABORATORY DATA: Today, white count 7.9, hemoglobin 8.6, platelets 190. Sodium 141, potassium 4.0, bicarbonate 26. IMAGING: Chest x-ray done today shows stable appearing left-sided hydropneumothorax with two left pleural drainage catheters in place. INPATIENT MEDICATIONS: Reviewed by myself. I note his Tessalon Perles were discontinued. Reglan 10 mg by mouth every 8 hours was started. His remainder of medications is unchanged as compared to yesterday. PROBLEMS: 1. End-stage renal disease, on hemodialysis on a Tuesday, Tuesday, Tuesday schedule. Patient is off of his usual schedule. His next dialysis will be on Tuesday, and then next week we will return him back to his usual Tuesday, Tuesday, Tuesday schedule. His electrolytes and volume status are acceptable. No change is being made to the current prescription. He will followup with Dr. Mackenzie as an outpatient for declotting of his arterial venous graft. For now, he continues dialysis via Perm-A-Cath. 2. Left-sided hydropneumothorax, status post bronchoscopy with balloon occlusion of the bronchopleural fistula area, and he continues with left-sided chest tube with followup with Dr. Asif. Chest x-ray today is noted. 3. Anemia related to chronic renal failure and also related to malignancy. He continues on Aranesp with his treatment, and I would transfuse him for a hemoglobin less than 8. His iron stores are acceptable. 4. Hypercoagulable state, malignancy. He is on full anticoagulation, and he will need to followup with vascular surgery as an outpatient for declotting of his arteriovenous (AV) graft. Hopefully we will in the near future be able to discontinue his Perm-A-Cath. AI
[2020-06-14] MEDS: ENOXAPARIN 80MG/0.8ML SYRINGE (J1650 PER 10MG) SC SCH (14:06)
--- NOTE | 2020-06-14 14:08 | IPN ---
PROGRESS NOTE DATE: 06/14/2020 Patient seen and examined this morning in the hemodialysis unit receiving his maintenance treatment. He offers no complaints today, but I note that he had a low-grade temperature overnight of 100.3. Apparently there is a plan to clamp his chest tube tomorrow. Vital signs: Temperature current 98.1, maximum temperature 100.3, pulse 73, respiratory rate 16, blood pressure 110/57, saturating 95% on room air. Intake yesterday was 1930. Weight in the bed scale today is not recorded. General: Patient is seen awake, alert, oriented, receiving his treatment in no apparent distress. Extraocular muscles are intact. Tongue is moist. Neck is supple. Perm-A-Cath is in use. Cardiac: S1, S2, regular rate. No edema of the lower extremities. Lungs show ongoing diminished breath sounds on the left side with a left-sided chest tube. Abdomen is soft and nontender. There are bowel sounds. Extremities are negative for clubbing or cyanosis. There is a nonfunctional graft in the left arm. Neurologic: He is oriented times three, interactive and conversational. Today's laboratory studies show sodium 140, potassium 4.5, BUN 27. Hemoglobin 9.7, white count 10.4, platelets 204. Chest x-ray today shows stable left-sided hydropneumothorax with two left chest tubes in place. INPATIENT MEDICATIONS: Reviewed by myself, and no change noted as compared to yesterday. PROBLEMS: 1. End-stage renal disease. Patient is dialyzed today with 500 mL of fluid to be removed. His electrolytes and volume status are acceptable. His next dialysis will be on Tuesday to return him to his usual Tuesday, Tuesday, Tuesday (MWF) schedule. 2. Left-sided hydropneumothorax, followed by Dr. Asif. The plan is to clamp the chest tube tomorrow if x-ray is stable. He has an entrapped lung. 3. Anemia related to chronic renal failure. Hemoglobin is coming up nicely to 9.7, and he continues on Aranesp with dialysis. 4. Low-grade fever. Patient had a temperature of 100.3 this morning, and I notice that his white count also did mildly increase from 7.9 to 10.4. Will continue to monitor closely for any signs of infection.
[2020-06-14 16:00] VITALS: BP 126/62
[2020-06-14 20:00] VITALS: BP 146/71
[2020-06-15] VITALS: BP 106/65
[2020-06-15] MEDS: LEVALBUTEROL 1.25 MG/0.5 ML CONCENTRATE NEB NEB SCH ×4 (01:18→19:37)
[2020-06-15 04:00] VITALS: BP 130/67
[2020-06-15 06:21] LABS: HEMATOCRIT 30.6 % (42.0-52.0); MEAN CORPUSCULAR HEMOGLOBIN 28.9 pg (27.0-33.0); MEAN CORPUSCULAR HGB CONC 29.4 g/dl (32.0-36.5); MEAN CORPUSCULAR VOLUME 98.4 fl (80.0-96.0); PLATELET COUNT, AUTOMATED 182 10^3/uL (150-450); RED BLOOD COUNT 3.11 10^6/uL (4.30-6.10); WHITE BLOOD COUNT 7.6 10^3/uL (4.0-10.0)
[2020-06-15] MEDS: METOCLOPRAMIDE 10 MG TAB PO SCH ×3 (06:30→20:59)
[2020-06-15 06:42] LABS: CALCIUM LEVEL 7.2 MG/DL (8.8-10.2); CREATININE FOR GFR 3.31 MG/DL (0.70-1.30); GLOMERULAR FILTRATION RATE 19.4 (>42)
[2020-06-15 08:00] VITALS: BP 96/60
--- NOTE | 2020-06-15 08:12 | REP ---
INDICATION: BPF. COMPARISON: Comparison chest x-ray June 12, 2020, June 13, 2020, and June 14, 2020. TECHNIQUE: Two views.. FINDINGS: There are 3 pleural drainage catheters again noted in the left pleural space. A small to moderate left-sided hydropneumothorax persists. There is an air-fluid level in the left base. Visceral and parietal pleural thickening are noted on the left. Cardiomediastinal silhouette is unchanged. Coarse platelike atelectatic changes are seen in the right base and right perihilar region as before. The right-sided Bjezil-L-Rwdv catheter is again noted. IMPRESSION: Three left pleural drainage catheter is in place. No significant change from the previous day's radiograph.. <Electronically signed by Edwin Wood > 06/15/20 [id number]
--- NOTE | 2020-06-15 08:35 | IPNPDOC ---
Text Note Date of Service The patient was seen on 06/15/20. NOTE Subjective: She was seen and examined this morning at bedside. His chest tube has not been clamped and he did go this morning to get his x-ray done. Dr. Asif will see him later today and decide whether to clamp his chest tube. There is no acute overnight events. States he is comfortable has no complaints at this time. Denies trouble breathing. Objective: Constitutional: Awake and alert, in no apparent distress ENT: Sclera are clear Respiratory: Appears to be breathing comfortably has a left-sided chest tube in place Cardiovascular: RRR S1 and S2 are normal Gastrointestinal: Abdomen is soft, non distended, non tender Musculoskeletal: No peripheral edema Neurologic: No focal neurological deficit. Mental Status: A&O x3, normal affect Skin: Warm, dry Assessment/plan: 75-year-old male with metastatic cancer very sick with a left-sided chest tube in place to manage it large hydropneumothorax # Left-sided hydropneumothorax: Chest tube in place. Managed by Dr. Asif CT surgery. Went to the OR with Dr Acosta and Dr Asif 06/11/20 in an attempt to control the patients left bronchopleural fistula with balloon occlusion and tisseel glue application. Time will tell if this has worked once glue dissipates we will find if the air leak has been sealed. Dr. Asif plans to clamp the chest tube today if the x-rays unchanged, I see if was taken # ESRD: on HD MWF. managed by nephrology. # Pancreatic cancer: with mets to the lung. Poor prognosis. Follow up with oncology. # hypercoagulable state: due to underlying malignancy. he's on full dose lovenox and ASA. has AV fistulae thrombosis, he'll need to follow up with vascular surgery for declotting. # A fib: had an episode but currently back to sinus. He's already anticoagulated if this is paroxysmal. # ACD: stable hgb. likely 2/2 to his ESRD and malignancy. # DVT prophylaxis: on Lovenox. [facility] VSRick, I+O VSRick, I+O Laboratory Tests 06/15/20 06:10 Vital Signs Date Time Temp Pulse Resp B/P (MAP) Pulse Ox O2 Delivery O2 Flow Rate FiO2 06/15/20 08:00 98.5 71 18 96/60 (72) 96 Room Air 06/12/20 12:30 2.0 I&O- Last 24 Hours up to 6 AM 06/15/20 06:00 Intake Total 490 ml Output Total 955 ml Balance -465 ml DIDIER QUINN MD Jun 15, 2020 08:35
[2020-06-15] MEDS: MOM 30ML SUSPENSION UDC PO SCH (09:00)
[2020-06-15] MEDS: MIRALAX *UNIT DOSE* 17GM PACKET PO SCH ×2 (09:00→21:00)
[2020-06-15] MEDS: SENOKOT S TAB PO SCH ×2 (09:00→21:00)
[2020-06-15] MEDS: DOCUSATE SODIUM 100MG CAPSULE PO SCH ×2 (09:00→21:00)
[2020-06-15] MEDS: ASPIRIN 81 MG CHEW TABLET PO SCH (09:01)
[2020-06-15] MEDS: PANTOPRAZOLE 40MG TAB (PROTONIX) PO SCH (09:02)
[2020-06-15] MEDS: SODIUM CHLORIDE 0.9% INJ 10 ML SYR IV SCH (09:05)
--- NOTE | 2020-06-15 11:28 | IPN ---
PROGRESS NOTE DATE: 06/15/2020 SUBJECTIVE: Patient seen and examined this morning at the bedside. He denies any complaints. He is anxious about whether his balloon occlusion with glue application to the bronchopleural fistula worked. PHYSICAL EXAMINATION: VITAL SIGNS: Temperature 98.5, pulse 71, respiratory rate 18, blood pressure 96/60, saturating 96% on room air. INTAKE AND OUTPUT: Intake yesterday was not fully recorded. Weight in the bed scale is 78.9 kg today. Dialysis yesterday removed 500 cc. His chest tube drainage yesterday was 440 cc. GENERAL: Patient is seen awake, alert, oriented, in no apparent distress. HEENT: Extraocular muscles are intact. Tongue is moist. There is bitemporal wasting. NECK: Supple. CHEST: There is a Permacath in the left chest wall. There is an Infusaport in the right chest wall. HEART: Sounds are regular, S1, S2. There is no peripheral edema. There is a chest tube on the left side. ABDOMEN: Soft and nontender. There are bowel sounds. EXTREMITIES: Negative for clubbing, cyanosis or edema. There is a nonfunctional arteriovenous graft in the left arm. NEUROLOGIC: He is oriented x3, interactive and at baseline mentation. LABORATORY DATA: Today's labs show white count 7.6, hemoglobin 9.0, platelets 182,000. Sodium 140, potassium 4.0. IMAGING STUDIES: Chest x-ray today shows no change as compared to yesterday's chest x-ray, a small to moderate left-sided hydropneumothorax persists. INPATIENT MEDICATIONS: Reviewed by myself and no change noted as compared to yesterday. PROBLEMS: 1. End-stage renal disease on hemodialysis on a Tuesday, Tuesday, Tuesday schedule: He will be dialyzed tomorrow to bring him back to his usual schedule. His electrolytes and volume status are acceptable. No change is being made to current prescription. 2. Left-sided hydropneumothorax: Followed by Dr. Asif, patient is pending chest tube clamp today. Daily chest x-ray as noted. 3. Anemia related to chronic renal failure: Hemoglobin is suboptimal but stable and he continues on Aranesp with dialysis. 4. Hypercoagulable state with history of thrombosis: He is on full dose anticoagulation. He will need to follow-up with vascular surgery for de-clot of his arteriovenous graft as an outpatient.
[2020-06-15 12:00] VITALS: BP_SYST 107; BP_SYST 111; BP_DIAS 58; BP_DIAS 59
--- NOTE | 2020-06-15 12:48 | IPN ---
PROGRESS NOTE DATE: 06/15/2020 SUBJECTIVE: Mr. Acosta is doing quite well and breathing well. There is still no air leak and I will therefore, clamp the tube today. OBJECTIVE: VITAL SIGNS: Show a T-max of 100.7 late last night. He has now defervesced to 98.5. Heart rate that ranges between 71 and 80 in a predominantly sinus rhythm. Respiratory rate of constant 18 who is 94% to 96% saturated on room air and whose blood pressure is ranging between 96/60 to 130/67. INTAKE AND OUTPUT: Over the past 24 hours has been recorded as 490 in and 1140 out for a negativity of 650 mL. He had 500 taken off from hemodialysis. His chest tube output, however, has increased to 440 mL. Weight today is 78.9 kg compared to 75.1 kg two days ago. RESPIRATORY: His lungs show decreased breath sounds on the left side, but I hear no wheezes or rhonchi. There are a few rales and coarse crackles on the left side. Right side shows normal vesicular sounds with a full percussion note to the diaphragm. CARDIAC: Without murmurs, clicks, gallops, or rubs. I cannot feel his PMI. S1 and S2 are normal. ABDOMEN: Soft and nontender. Bowel sounds are positive. There is no hepatomegaly. No CVA tenderness. EXTREMITIES: Show no pretibial edema. No calf tenderness. No differential swelling of the upper extremities. SKIN: Warm, dry, and perfused without cyanosis or mottling, including that of the nail beds and knees. NECK: Supple. There is no jugular venous distention. No subcutaneous emphysema. Trachea is midline. MOUTH: Shows the mucous membranes to be pink and moist. Lips and gums without lesions and no thrush. EYES: Show his pupils equal and reactive. Extraocular movements are intact. Sclerae nonicteric. NEUROLOGIC: Shows II through XII intact. Normal gross motor, gross sensation intact. Gait is not tested. PSYCHIATRIC: Shows him to be awake, alert, and oriented x3 with appropriate mood and affect and conversational. LABORATORY DATA: His white count today is 7.6 with hemoglobin and hematocrit of 9.0 and 30.6 slightly down from 9.7 and 30.0 yesterday. His chemistries today show normal electrolytes with a BUN and creatinine of 23 and 3.31 with a glucose of 82 and a calcium of 7.2. IMAGING DATA: His chest x-ray today shows no change in the left lung from its distance to the chest wall. He does have an air fluid level, which is the same as yesterday. He does have an entrapped lung and I would expect him to be reaccumulating fluid. Subcutaneous emphysema is all but gone. IMPRESSION: 1. Hydropneumothorax controlled with chest tube. 2. Alveolopleural or bronchopleural fistula hopefully now resolved. 3. Entrapped lung with residual airspace continuing. 4. Metastatic pancreatic carcinoma of the left lung with cavitary lesions bilaterally in each lung. 5. Bigeminy controlled. 6. Chronic renal disease requiring dialysis. 7. Tobacco abuse. 8. BPH. 9. Onset of atrial fibrillation resolved. PLAN AND DISCUSSION: Today I will clamp his chest tube. His pleural fluid has never shown malignant cells, although I suspect that is exactly what is going on. Contributing to his fluid retention is his renal failure. He does have an entrapped lung and that space is always going to refill with fluid. He does have a PleurX catheter in placed in [place]. If his chest x-ray is unchanged tomorrow except for more fluid and the lung is still at the same distance from the chest wall, I will remove his chest tube. AI
[2020-06-15] MEDS: ENOXAPARIN 80MG/0.8ML SYRINGE (J1650 PER 10MG) SC SCH (13:08)
[2020-06-15 16:00] VITALS: BP 114/60
[2020-06-15] MEDS: MORPHINE 2 MG/ML 1ML VIAL (J2270) IV PRN (18:23)
[2020-06-15 20:00] VITALS: BP 120/59
[2020-06-15] MEDS: ACETAMINOPHEN TAB 650MG DOSE (2X325MG) PO PRN (23:33)
[2020-06-16] VITALS (7 sets, daily range): BP systolic 90–132; BP diastolic 57–80
[2020-06-16] MEDS: LEVALBUTEROL 1.25 MG/0.5 ML CONCENTRATE NEB NEB SCH ×4 (01:20→20:44)
[2020-06-16] MEDS: METOCLOPRAMIDE 10 MG TAB PO SCH ×3 (05:15→21:34)
[2020-06-16 05:24] LABS: HEMATOCRIT 28.9 % (42.0-52.0); HEMOGLOBIN 8.7 g/dl (13.5-17.5); MEAN CORPUSCULAR HEMOGLOBIN 29.6 pg (27.0-33.0); MEAN CORPUSCULAR HGB CONC 30.1 g/dl (32.0-36.5); MEAN CORPUSCULAR VOLUME 98.3 fl (80.0-96.0); PLATELET COUNT, AUTOMATED 182 10^3/uL (150-450); RED BLOOD COUNT 2.94 10^6/uL (4.30-6.10)
[2020-06-16] MEDS: ACETAMINOPHEN TAB 650MG DOSE (2X325MG) PO PRN ×2 (05:33→19:44)
[2020-06-16 06:43] LABS: CALCIUM LEVEL 7.1 MG/DL (8.8-10.2); CREATININE FOR GFR 4.05 MG/DL (0.70-1.30); GLOMERULAR FILTRATION RATE 15.4 (>42); POTASSIUM SERUM 4.4 MEQ/L (3.5-5.1)
[2020-06-16] MEDS: PANTOPRAZOLE 40MG TAB (PROTONIX) PO SCH (08:09)
[2020-06-16] MEDS: ASPIRIN 81 MG CHEW TABLET PO SCH (08:09)
[2020-06-16] MEDS: SODIUM CHLORIDE 0.9% INJ 10 ML SYR IV SCH (08:10)
[2020-06-16] MEDS: DOCUSATE SODIUM 100MG CAPSULE PO SCH ×2 (08:10→18:52)
[2020-06-16] MEDS: MOM 30ML SUSPENSION UDC PO SCH (08:10)
[2020-06-16] MEDS: SENOKOT S TAB PO SCH ×2 (08:11→18:52)
[2020-06-16] MEDS: MIRALAX *UNIT DOSE* 17GM PACKET PO SCH ×2 (08:11→18:52)
--- NOTE | 2020-06-16 08:14 | REP ---
INDICATION: BPF COMPARISON: 06/15/2020 TECHNIQUE: PA and lateral. FINDINGS: Chronic left hydropneumothorax with underlying parenchymal opacities as well as 2 left-sided chest tubes are essentially unchanged and in stable position respectively. Vague right-sided opacities unchanged. No new acute mediastinal or pleuroparenchymal process identified. IMPRESSION: No change from prior examination. <Electronically signed by David Green > 06/16/20 0847
--- NOTE | 2020-06-16 10:30 | IPNPDOC ---
Text Note Date of Service The patient was seen on 06/16/20. NOTE Subjective: She was seen and examined this morning at bedside. He just returned from dialysis. He's feeling a little tired but otherwise doing well. He's been eating well. His chest tube has been clamped since yesterday. Dr. Asif will see him later today. There is no acute overnight events.Denies trouble breathing. Objective: Constitutional: Awake and alert, in no apparent distress ENT: Sclera are clear Respiratory: Appears to be breathing comfortably has a left-sided chest tube in place clamped Cardiovascular: RRR S1 and S2 are normal Gastrointestinal: Abdomen is soft, non distended, non tender Musculoskeletal: No peripheral edema Neurologic: No focal neurological deficit. Mental Status: A&O x3, normal affect Skin: Warm, dry Assessment/plan: 75-year-old male with metastatic cancer very sick with a left-sided chest tube in place to manage it large hydropneumothorax # Left-sided hydropneumothorax: Chest tube in place. Managed by Dr. Asif CT surgery. Went to the OR with Dr Acosta and Dr Asif 06/11/20 in an attempt to control the patients left bronchopleural fistula with balloon occlusion and tisseel glue application. Time will tell if this has worked once glue dissipates we will find if the air leak has been sealed. Dr. Asif clamped the chest tube yesterday plan to possibly remove his chest tube # ESRD: on HD MWF. managed by nephrology. # Pancreatic cancer: with mets to the lung. Poor prognosis. Follow up with oncology. # hypercoagulable state: due to underlying malignancy. he's on full dose lovenox and ASA. has AV fistulae thrombosis, he'll need to follow up with vascular surgery for declotting. # Paroxysmal A fib: had an episode but currently back to sinus. He's already anticoagulated # ACD: stable hgb. likely 2/2 to his ESRD and malignancy. # DVT prophylaxis: on Lovenox. [facility] Rick CHAVEZ, I+O VSRick, I+O Laboratory Tests 06/16/20 05:10 Vital Signs Date Time Temp Pulse Resp B/P (MAP) Pulse Ox O2 Delivery O2 Flow Rate FiO2 06/16/20 08:08 18 06/16/20 07:53 97.1 75 132/69 (90) 94 Room Air 06/12/20 12:30 2.0 I&O- Last 24 Hours up to 6 AM 06/16/20 06:00 Intake Total 1260 ml Output Total 60 ml Balance 1200 ml DIDIER QUINN MD Jun 16, 2020 10:30
[2020-06-16] MEDS: ENOXAPARIN 80MG/0.8ML SYRINGE (J1650 PER 10MG) SC SCH (13:01)
--- NOTE | 2020-06-16 13:24 | IPN ---
PROGRESS NOTE DATE: 06/16/2020 SUBJECTIVE: Mr. Acosta is seen this morning on his bedside during hemodialysis. He is feeling well and denies any new complaints. He still has left-sided chest tube in place, which is not hooked to suctioning anymore. The patient had a chest x-ray this morning and he is anticipated for removal of his chest tube today. He denies any dyspnea, chest pain, nausea, or vomiting. OBJECTIVE: VITAL SIGNS: Temperature 97.1 degrees Fahrenheit, heart rate 76 per minute, respiratory rate 20 per minute. Blood pressure 132/69 mmHg and oxygen saturation 94% on room air. HEAD: Atraumatic. NECK: Supple and without JVD or thyroid enlargement. Permacath is being used for dialysis, which is working well. HEART: Sounds regular. LUNGS: Diminished breath sounds on the left side. ABDOMEN: Soft and nontender. Bowel sounds are normal. EXTREMITIES: Without any cyanosis or clubbing. NEUROLOGIC: He is awake, alert, and oriented x3. LABORATORY DATA: Today's labs show WBC count of 7.0, hemoglobin 8.7, and hematocrit 28.9, platelets 182,000. Sodium 141, potassium 4.4, CO2 of 22, BUN 28, creatinine 4.05, glucose 81, and calcium 7.1. PROBLEMS: 1. End-stage renal disease. The patient is being dialyzed and he is tolerating dialysis well. We are removing minimal amount of fluid as tolerated. 2. Anemia. His anemia has been stable and does not need any urgent intervention. He remains on Aranesp 100 mcg once a week, which will be continued. 3. Recurrent pleural effusion and pneumothorax. The patient still has the chest tube on the left side. Will wait for Dr. Asif to consider removing his chest tube. 4. Congestive heart failure/hypervolemia. His volume status is very well compensated at present. 5. History of pancreatic cancer with bilateral lung metastasis. The patient has been off chemotherapy and is currently at his baseline.
[2020-06-17] VITALS: BP_SYST 105; BP_SYST 156; BP_DIAS 60; BP_DIAS 85
[2020-06-17] MEDS: LEVALBUTEROL 1.25 MG/0.5 ML CONCENTRATE NEB NEB SCH ×4 (01:57→21:10)
[2020-06-17 04:00] VITALS: BP 136/73
[2020-06-17] MEDS: METOCLOPRAMIDE 10 MG TAB PO SCH ×3 (06:07→21:18)
[2020-06-17 06:23] LABS: HEMATOCRIT 28.6 % (42.0-52.0); HEMOGLOBIN 8.3 g/dl (13.5-17.5); MEAN CORPUSCULAR HEMOGLOBIN 28.7 pg (27.0-33.0); PLATELET COUNT, AUTOMATED 210 10^3/uL (150-450); RED BLOOD COUNT 2.89 10^6/uL (4.30-6.10); WHITE BLOOD COUNT 7.4 10^3/uL (4.0-10.0)
[2020-06-17 06:52] LABS: CALCIUM LEVEL 7.5 MG/DL (8.8-10.2); CREATININE FOR GFR 3.11 MG/DL (0.70-1.30); GLOMERULAR FILTRATION RATE 20.8 (>42); POTASSIUM SERUM 3.7 MEQ/L (3.5-5.1)
[2020-06-17 08:00] VITALS: BP 96/53
--- NOTE | 2020-06-17 08:16 | REP ---
INDICATION: BPF COMPARISON: 06/16/2020 TECHNIQUE: PA and lateral. FINDINGS: A single left-sided chest tube is now identified and the left-sided pleuroparenchymal changes including hydropneumothorax and underlying parenchymal opacities appear slightly more pronounced than prior examination. Right hemithorax again demonstrates perihilar and mid to lower lung opacities unchanged. IMPRESSION: Relatively similar findings as described above with minimal change. No new acute process identified. <Electronically signed by David Green > 06/17/20 0821
[2020-06-17] MEDS: DOCUSATE SODIUM 100MG CAPSULE PO SCH ×2 (09:00→19:18)
[2020-06-17] MEDS: SENOKOT S TAB PO SCH ×2 (09:00→19:19)
[2020-06-17] MEDS: MIRALAX *UNIT DOSE* 17GM PACKET PO SCH ×2 (09:00→19:18)
[2020-06-17] MEDS: SODIUM CHLORIDE 0.9% INJ 10 ML SYR IV SCH (09:00)
[2020-06-17] MEDS: MOM 30ML SUSPENSION UDC PO SCH (09:00)
--- NOTE | 2020-06-17 09:27 | IPN ---
PROGRESS NOTE DATE: 06/16/2020 SUBJECTIVE: I am seeing Mr. Acosta after he has returned from dialysis this morning. He states that he is breathing well and he has been up and around. OBJECTIVE: VITAL SIGNS: Show a T-max of 99.1 with a heart rate that ranges between 54 and 106 in a predominantly sinus rhythm. Respiratory rate of 17 to 22 without the use of accessory muscles who is 94% to 96% saturated on 2 liters nasal cannula. His blood pressure is ranging between 132/69 to 90/60. INTAKE AND OUTPUT: Over the past 24 hours has been recorded as 1260 in and 135 out for a positivity of 1125 mL. He has put out 135 mL out the chest tube yesterday. RESPIRATORY: His lungs show decreased breath sounds on the left side with a percussion note that is dull at the very base. Left side shows normal vesicular sounds without wheezes, rhonchi, or rales. Percussion note is full to the diaphragm on the right. CARDIAC: Without murmurs, clicks, gallops, or rubs. I cannot feel his PMI. S1 and S2 are normal. ABDOMEN: Soft and nontender. Bowel sounds are positive. There is no hepatomegaly. No CVA tenderness. EXTREMITIES: Show trace pretibial edema. No calf tenderness. No differential swelling of the upper extremities. SKIN: Warm, dry, and perfused without cyanosis or mottling, including that of the nail beds and knees. NECK: Supple. There is no jugular venous distention. No subcutaneous emphysema. Trachea is midline. MOUTH: Shows the mucous membranes to be pink and moist. Lips and gums without lesions and no thrush. EYES: Show his pupils equal and reactive. Extraocular movements are intact. Sclerae nonicteric. NEUROLOGIC: Shows II through XII intact. Normal gross motor, gross sensation intact. Gait is not tested. PSYCHIATRIC: Shows him to be awake, alert, and oriented x3 with appropriate mood and affect and conversational. We did drain him of 300 mL via his PleurX catheter today. His chest tube has been clamped for the last 24 hours. LABORATORY DATA: His white count today is 7.0 with hemoglobin and hematocrit of 8.7 and 28.9, slightly down from 9.0 and 30.6 yesterday. Platelet count is 182,000 and stable. There is no differential. Electrolytes are essentially normal today with a BUN and creatinine of 28 and 4.05 prior to his dialysis. Glucose is 81 with a calcium of 7.1. IMAGING DATA: His chest x-ray today shows an increase in the air fluid level filling up the space where his lung is not fully expanded to the chest wall. The lung does look a bit further away from the chest wall, but there is no subcutaneous emphysema suggestive of an air leak. IMPRESSION: 1. Hydropneumothorax controlled with a chest tube now clamped. 2. Alveolopleural or bronchopleural fistula hopefully resolved. 3. Entrapped lung with residual airspace continuing. 4. Metastatic pancreatic carcinoma of the left lung with cavitary lesions bilaterally in each lung. 5. Bigeminy controlled. 6. Chronic renal disease requiring dialysis. 7. Tobacco abuse. 8. BPH. 9. Atrial fibrillation, resolved. PLAN AND DISCUSSION: I will remove his chest tube today. We will now continue to drain his PleurX catheter each day. If the chest x-ray is satisfactory tomorrow, I would have no objection for him being discharged per the medical service.
--- NOTE | 2020-06-17 09:42 | IPN ---
PROGRESS NOTE DATE: 06/17/2020 SUBJECTIVE: Michele is seen on PCU. He underwent bronchoscopy with balloon occlusion left lower lobe on 06/11. Dr. Asif is managing his chest tube. He has end-stage renal disease on a Tuesday, Tuesday, and Tuesday hemodialysis. He has metastatic pancreatic cancer with a poor prognosis. He is full code per his request. Has hypercoagulable state due to malignancy with previous AV fistula thrombosis on full dose Lovenox and aspirin. He looks the same as he did when I saw him a week ago. OBJECTIVE: VITAL SIGNS: Afebrile, blood pressure 96/53. GENERAL APPEARANCE: Chronically ill-appearing. CHEST: Chest tube left side. HEART: Regular rhythm. ABDOMEN: Soft and nontender. EXTREMITIES: No peripheral edema. LABORATORY DATA: Hemoglobin is 8.3, potassium 3.7. IMPRESSION/PLAN: 1. Left hydropneumothorax. Chest tube per Dr. Asif. 2. End-stage renal disease. Continue dialysis. 3. Metastatic pancreatic cancer with poor prognosis. Full code per patient.
[2020-06-17] MEDS: ASPIRIN 81 MG CHEW TABLET PO SCH (09:59)
[2020-06-17] MEDS: PANTOPRAZOLE 40MG TAB (PROTONIX) PO SCH (09:59)
[2020-06-17 12:00] VITALS: BP 99/58
[2020-06-17] MEDS: ENOXAPARIN 80MG/0.8ML SYRINGE (J1650 PER 10MG) SC SCH (12:08)
--- NOTE | 2020-06-17 13:56 | IPN ---
PROGRESS NOTE DATE: 06/17/2020 SUBJECTIVE: Mr. Acosta is seen this morning on his bedside. He is not feeling well and reports frequent diarrhea since last night. He has no vomiting or abdominal pain. He denies any fever or chills. His chest tube was removed yesterday and he denies any dyspnea. His chest x-ray done this morning did not show any change. PHYSICAL EXAMINATION: VITAL SIGNS: Temperature is 98.7 degrees Fahrenheit, heart rate is 90 per minute and respiratory rate is 18 per minute. Blood pressure is 99/58 mmHg, and oxygen saturation is 96% on room air. HEAD: Atraumatic. NECK: Supple and without JVD or thyroid enlargement. HEART: Heart sounds are regular. LUNGS: Diminished breath sounds on the left side. ABDOMEN: Soft and nontender. Bowel sounds are normal. EXTREMITIES: Without any cyanosis or clubbing. NEUROLOGIC: He is awake, alert and at his baseline mentation without any focal deficit. LABORATORY DATA: Today's labs showed a WBC of 7.4, hemoglobin 8.3 and hematocrit 28.6, platelets are 210,000. Sodium 139, potassium 3.7, CO2 23, BUN 20 and creatinine 3.11. PROBLEMS: 1. Endstage renal disease. Patient was dialyzed yesterday and his next dialysis will be due tomorrow. At this point, there is no emergent need for dialysis today. 2. Recurrent left pleural effusion. This is malignant pleural fluid and not related to volume overload. The patient had a chest tube for several days which has now been removed. He will be followed up with Thoracic Surgery. 3. Anemia. His anemia is stable at this point and will need to be monitored. No emergent need for a transfusion. 4. Hypotension, this is a chronic issue and he is stable at baseline. He has been placed on Midodrine, however currently he is not on it. We will have to monitor him closely and consider Midodrine if needed. 5. Diarrhea, this is a new symptom, I will defer any workup to the Hospitalist service.
[2020-06-17 16:00] VITALS: BP 136/65
[2020-06-17 16:41] LABS: CALCIUM LEVEL 7.5 MG/DL (8.8-10.2); CREATININE FOR GFR 3.64 MG/DL (0.70-1.30); GLOMERULAR FILTRATION RATE 17.4 (>42); MAGNESIUM LEVEL 1.7 MG/DL (1.8-2.4); POTASSIUM SERUM 3.6 MEQ/L (3.5-5.1)
[2020-06-17] MEDS ORDERED: MAG SULF 1GM/100ML (MAG RUN) 1 GM in IV 1 EA IV ONE (17:30)
[2020-06-17] MEDS ORDERED: POTASSIUM CHLORIDE 10 MEQ SR TABLET PO ONE (17:30)
[2020-06-17 20:00] VITALS: BP 98/50
[2020-06-18] VITALS: BP 106/64
[2020-06-18] MEDS: LEVALBUTEROL 1.25 MG/0.5 ML CONCENTRATE NEB NEB SCH ×2 (01:35→07:42)
[2020-06-18 04:00] VITALS: BP 103/63
[2020-06-18] MEDS: MOM 30ML SUSPENSION UDC PO SCH (06:24)
[2020-06-18] MEDS: DOCUSATE SODIUM 100MG CAPSULE PO SCH (06:24)
[2020-06-18] MEDS: METOCLOPRAMIDE 10 MG TAB PO SCH ×2 (06:24→13:38)
[2020-06-18] MEDS: MIRALAX *UNIT DOSE* 17GM PACKET PO SCH (06:24)
[2020-06-18] MEDS: SENOKOT S TAB PO SCH (06:24)
[2020-06-18 06:45] LABS: HEMATOCRIT 27.8 % (42.0-52.0); HEMOGLOBIN 8.3 g/dl (13.5-17.5); MEAN CORPUSCULAR HEMOGLOBIN 29.4 pg (27.0-33.0); MEAN CORPUSCULAR HGB CONC 29.9 g/dl (32.0-36.5); MEAN CORPUSCULAR VOLUME 98.6 fl (80.0-96.0); PLATELET COUNT, AUTOMATED 223 10^3/uL (150-450); RED BLOOD COUNT 2.82 10^6/uL (4.30-6.10); WHITE BLOOD COUNT 7.4 10^3/uL (4.0-10.0)
[2020-06-18 07:03] LABS: CALCIUM LEVEL 7.3 MG/DL (8.8-10.2); CREATININE FOR GFR 4.15 MG/DL (0.70-1.30); GLOMERULAR FILTRATION RATE 14.9 (>42); MAGNESIUM LEVEL 2.1 MG/DL (1.8-2.4); POTASSIUM SERUM 4.1 MEQ/L (3.5-5.1)
[2020-06-18 08:00] VITALS: BP 99/62
--- NOTE | 2020-06-18 08:11 | REP ---
INDICATION: BPF COMPARISON: 06/17/2020 TECHNIQUE: PA and lateral. FINDINGS: Left-sided hydropneumothorax and underlying parenchymal opacities along with scattered right-sided areas of opacification are essentially unchanged. Lines and tubes remain stable. IMPRESSION: No significant change from prior examination. <Electronically signed by David Green > 06/18/20 0808
[2020-06-18] MEDS: SODIUM CHLORIDE 0.9% INJ 10 ML SYR IV SCH (09:00)
[2020-06-18] MEDS: DARBEPOETIN 100 MCG/0.5 ML *DIALYSIS* SYRINGE (J0882) IV SCH (09:11)
[2020-06-18] MEDS ORDERED: ELIQ2.5T PO (10:06)
[2020-06-18] MEDS ORDERED: ASPI81CH8 PO (10:06)
[2020-06-18] MEDS ORDERED: PANT40TA29 PO (10:06)
--- NOTE | 2020-06-18 10:39 | DSES ---
DISCHARGE SUMMARY DATE OF ADMISSION: 05/27/2020 DATE OF DISCHARGE: 06/18/2020 PRINCIPAL DIAGNOSIS: Left hydropneumothorax. SECONDARY DIAGNOSES: Alveolar pleural and bronchopleural fistula, entrapped lung residual airspace, metastatic pancreatic cancer metastatic to left lung with cavitary lesions bilaterally in each lung, bigeminy, end-stage renal disease requiring dialysis, tobacco abuse, atrial fibrillation-paroxysmal , BPH, hypercoagulable state with thrombosis of AV fistula, anemia of chronic inflammation. HISTORY: Patient was admitted with a hydropneumothorax; details with history and physical from admission. HOSPITAL COURSE: Patient had a long complicated hospitalization. I assumed his care the day before discharge. He had a chest tube in for a long time. He had a persisting air leak and ended up going to the OR on 06/11/2020 for bronchoscopy with balloon occlusion. TISSEEL admission to superior basal segment left lower lobe by with Dr. Asif assisting. Dr. Asif felt the patient could be discharged today with a PleurX catheter that the patient drains each day. Chest x-ray was done today and it showed no findings that would prevent his discharge. PHYSICAL EXAMINATION ON DISCHARGE: VITAL SIGNS: He is afebrile. Blood pressure 103/63, pulse 54, respiratory rate 16, 95% O2 saturation. GENERAL: He is alert and conversant. LUNGS: He has a chest tube in on the left side. HEART: Regular rhythm. Good air movement on the right, decreased breath sounds left base. ABDOMEN: Soft, nontender. No masses. EXTREMITIES: No peripheral edema. LABORATORY DATA: White count 7.4, hemoglobin 8.3, platelets 223,000. Sodium 141, potassium 4.1, BUN 27, creatinine 4. Magnesium 2.1; was low yesterday and I gave him a gram of magnesium and it improved. COVID Test was negative on 06/10/2020. DISPOSITION: Patient is discharged home in improved and stable condition. His prognosis is poor because of the metastatic pancreatic cancer with metastases to his lungs. He is full code and this has been discussed on a few occasions including by me yesterday and he is maintaining full code status. He does not have a primary care provider and this will have to be arranged prior to discharge. His diet and activity is as tolerated. Continue his dialysis as previously scheduled. DISCHARGE MEDICATIONS: He will be discharged on: 1. Aspirin 81 mg daily. 2. Aranesp provided by nephrology at dialysis. 3. Protonix 40 mg daily. 4. Eliquis 2.5 mg b.i.d. (selection and dosing discussed with Dr. Parker today). PleurX catheter care per Dr. Asif. Will sign a prescription for a four wheel walker. Will make a home health service referral. PROGNOSIS: Poor. Readmission is highly likely. He has metastatic pancreatic cancer, which is not treatable. Patient is currently maintaining his full code status.
[2020-06-18 13:14] VITALS: BP 106/67
[2020-06-18] MEDS: ASPIRIN 81 MG CHEW TABLET PO SCH (13:38)
[2020-06-18] MEDS: PANTOPRAZOLE 40MG TAB (PROTONIX) PO SCH (13:38)
[2020-06-18] MEDS: ENOXAPARIN 80MG/0.8ML SYRINGE (J1650 PER 10MG) SC SCH (13:38)
--- NOTE | 2020-06-18 13:42 | IPN ---
PROGRESS NOTE DATE: 06/18/2020 SUBJECTIVE: Mr. Acosta is seen this morning during dialysis. He is feeling better, but still has some loose stools. Yesterday he had more frequent diarrhea. He denies any abdominal pain or vomiting. He has no fever or chills. PHYSICAL EXAMINATION: Temperature 98 degrees Fahrenheit, heart rate 88 per minute, respiratory rate 19 per minute, blood pressure 99/62 mmHg, oxygen saturation 96% on room air. HEAD: Atraumatic. NECK: Supple and without jugular venous distention (JVD) or thyroid enlargement. Hemodialysis catheter is present on left upper chest. HEART SOUNDS: Regular. LUNGS: Diminished breath sounds on the left lower half. ABDOMEN: Soft. Bowel sounds are normal. EXTREMITIES: Without any cyanosis or clubbing. NEUROLOGIC: He is awake, alert and at his baseline mentation. LABORATORY DATA: Today's labs show WBC 7.4, hemoglobin 8.3, hematocrit 27.8, platelets 223. Sodium 141, potassium 1.1, CO2 21, BUN 27, creatinine 4.15. PROBLEMS: 1. End-stage renal disease. Patient is being dialyzed and he is tolerating his dialysis well. We will complete his 3.5 hours of dialysis today. 2. Pleural effusion and pneumothorax. Patient has had his chest tube removed yesterday and has been felt to be stable from thoracic standpoint. He is likely to be discharged later today. 3. Anemia. Related to multiple medical problems, including end-stage renal disease and metastatic pancreatic cancer. At present, his anemia is stable and does not need any urgent transfusion. We will continue with anemia management in dialysis. 4. Hypotension. Blood pressure has been chronically low but stable. Patent is asymptomatic and we are not removing any fluid during dialysis today.
[2020-06-18 16:00] VITALS: BP 117/54
== END 2020-06-18 17:20 | disposition home health service (06) | DRG 163 ==
LOC: M RAD 14:34 → M PCU 17:13
PROVIDERS: ADMIT Internal Medicine; ATTEND Family Medicine
PROC: 02HV33Z Insertion of Infusion Device into Superior Vena Cava, Percutaneous Approach (ICD-10-PCS; 2020-05-27)
PROC: 0JH63XZ Insertion of Tunneled Vascular Access Device into Chest Subcutaneous Tissue and Fascia, Percutaneous Approach (ICD-10-PCS; 2020-05-27)
PROC: 0W9B00Z Drainage of Left Pleural Cavity with Drainage Device, Open Approach (ICD-10-PCS; 2020-05-27)
PROC: 5A1D70Z Performance of Urinary Filtration, Intermittent, Less than 6 Hours Per Day (ICD-10-PCS; 2020-05-28)
PROC: 3E0F8GC Introduction of Other Therapeutic Substance into Respiratory Tract, Via Natural or Artificial Opening Endoscopic (ICD-10-PCS; 2020-06-11)
PROC: 0BL Respiratory System, Occlusion (ICD-10-PCS; principal; 2020-06-11 10:00)
DX: J95.811 Postprocedural pneumothorax (principal); N18.6 End stage renal disease; T82.868A Thrombosis due to vascular prosthetic devices, implants and grafts, initial encounter; I12.0 Hypertensive chronic kidney disease with stage 5 chronic kidney disease or end stage renal disease; J91.0 Malignant pleural effusion; C78.01 Secondary malignant neoplasm of right lung; C78.02 Secondary malignant neoplasm of left lung; N25.81 Secondary hyperparathyroidism of renal origin; D68.69 Other thrombophilia; R64 Cachexia; C25.9 Malignant neoplasm of pancreas, unspecified; I48.91 Unspecified atrial fibrillation; J93.82 Other air leak; R50.9 Fever, unspecified; R19.7 Diarrhea, unspecified; E87.6 Hypokalemia; N40.0 Benign prostatic hyperplasia without lower urinary tract symptoms; R11.2 Nausea with vomiting, unspecified; I95.89 Other hypotension; K59.00 Constipation, unspecified; D63.0 Anemia in neoplastic disease; E55.9 Vitamin D deficiency, unspecified; D63.1 Anemia in chronic kidney disease; R00.8 Other abnormalities of heart beat; F17.200 Nicotine dependence, unspecified, uncomplicated; Z99.2 Dependence on renal dialysis; Z92.21 Personal history of antineoplastic chemotherapy; Y83.1 Surgical operation with implant of artificial internal device as the cause of abnormal reaction of the patient, or of later complication, without mention of misadventure at the time of the procedure

== ENCOUNTER → 2020-05-27 | Outpatient (CLI) | payer MEDICARE ==
[~2020-05-27] MED LIST changes: +ISOVUE-300 61% 50ML VIAL As Ordered ONE; +LIDOCAINE 1% MDV 20ML VIAL As Ordered ONE; +LIDOCAINE W/EPINEPHRINE 1% 20ML VIAL As Ordered ONE; +MIDAZOLAM INJ 2MG/2ML VIAL (J2250 PER 1MG) As Ordered ONE; +ceFAZolin 2 GM/D5W 50 ML IV BAG (J0690 PER 500MG) As Ordered ONE; +fentaNYL 100 MCG/2 ML INJECTION (J3010) As Ordered ONE; +hydrALAZINE 20MG/ML 1ML VIAL (J0360 PER 20MG) As Ordered ONE
[2020-05-27 16:01] LABS: CALCIUM LEVEL 8.7 MG/DL (8.8-10.2); CREATININE FOR GFR 6.1 MG/DL (0.70-1.30); GLOMERULAR FILTRATION RATE 9.6 (>42); PHOSPHORUS LEVEL 5.4 MG/DL (2.5-4.9); POTASSIUM SERUM 3.4 MEQ/L (3.5-5.1)
--- NOTE | 2020-05-27 16:22 | ECGEPIP ---
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 Somewhat low voltages with abnormal precordial R wave progression; body habitus v versus pulmonary disease. Could not rule out a prior septal injury Subtle nonspecific ST/T wave abnormalities. Frequent isolated PVCs 02/26/19 have resolved Electronically Signed on 05-27-2020 16:22:14 EST by Jack Delatorre
--- NOTE | 2020-05-27 17:40 | ROOPDOC ---
[facility] Report Of Operation Report of Operation DATE OF PROCEDURE: 05/27/20 PREPROCEDURE DIAGNOSES: End-stage renal disease with thrombosed left upper extremity AV graft POSTPROCEDURE DIAGNOSES: Same PROCEDURE: 1. Ultrasound-guided access left internal jugular vein 2. Placement of a 27 cm tunneled left IJ PermCath SURGEON: Meli Mackenzie MD ANESTHESIA: Local anesthesia 16 mL lidocaine. Moderate intravenous conscious sedation was supervised by Dr. Mackenzie. The patient was independently monitored by registered nurse and signed to the Department of radiology using automated blood pressure, EKG, and pulse oximetry. The detailed sedation record is permanently stored in the hospital information system. The following is a brief sedation record: Start time 16:08, stop time 16:45, Versed 1.5 mg IV, fentanyl 75 g IV, hydralazine 10 mg IV, Ancef 2 g IV. INDICATION FOR PROCEDURE: This is a very pleasant 75-year-old patient with metastatic pancreatic cancer, large left pleural effusion, and thrombosed left AV graft placed by another provider. The patient has been on dialysis for 2 weeks, and per the dialysis nurse the graft was working until his most recent dialysis access. Initially, they had trouble cannulating the graft, but once they were able to cannulate they said it did work fairly well. He is not sure what type of graft and is we do not yet have an op note. The graft on palpation feels quite small, very firm, I'm not sure if this is a PTFE graft or something different. Nevertheless, we initially planned to do a declot procedure today, and a PermCath as a last resort if the declot was unsuccessful. However, upon seeing the patient just before going to the radiology suite, he was in bigeminy and seems very anxious tired and concerned about along procedure. He says he has eaten all day, he got his Covid vaccine in the morning and has been waiting all day to see doctors regarding his clotted access. We obtained an EKG and sent off a chemistry and electrolytes. EKG looked okay except for PVCs, and the patient was hemodynamically stable and asymptomatic. I discussed with him that for today, I like to just do a PermCath and then we can further discuss options for declot once I obtain an op note and figure out what was done on his original surgery. This might make things go a little smoother. The patient has metastatic cancer, and I discussed with him that at minimum he needs to be on a baby aspirin daily for antiplatelet therapy, but I will discuss with Dr. Parker possibly considering anticoagulation. He is going to have a challenging time maintaining any AV access with a hypercoagulable state from metastatic cancer. INTERPRETATION: The PermCath is in position with the tip at the innominate vein SVC junction. Extensive attempts were made to advance the graft into the SVC right atrial junction, but this was ultimately unsuccessful due to suspected stenosis in the central veins, long-standing right IJ port that has resulted in some SVC stenosis, and thus the tip of the catheter is somewhat more proximal than we would prefer. Despite this, it draws back and flushes easily and is okay to use for dialysis. There are no kinks in the catheter. Left-sided pneumothorax and effusion present preprocedure as noted on prior chest x-ray today. This is being addressed postprocedure by our thoracic surgeon. He will be admitted from the ER postprocedure. REPORT OF OPERATION: The patient was brought to the angiographic suite in stable condition. His left neck and chest were prepped and draped in a sterile fashion. He has a right IJ port and therefore we elected to use the left side. I have seen the patient's chest x-ray, and he hasn't pneumothorax, subcutaneous emphysema, and a pleural effusion on the left in addition to a Pleurx catheter, however we would like to avoid the right side at this time if possible. The alternative option would be to use the patient's femoral veins, but we definitely would like to avoid this to minimize risk of infection. A timeout was performed. Sedation was administered without complication. The patient's jugular vein was examined with ultrasound. It was found to be easily collapsible, and I suspect his intravascular volume is very low. This became evident during the procedure, when his blood pressure was very labile. Small fluid boluses were given throughout the case to try to augment his intravascular volume. This did prove helpful and he was hemodynamically stable at the end of the case with normal blood pressure and heart rate. We were able to access his jugular vein under ultrasound guidance, but it was a little challenging because it was collapsing with each access attempt. However, we were able to pass the wire and placed the micro-sheath without challenge. We then advanced the J-wire into the central system. This proved difficult due to some stenosis in the innominate vein and also in the SVC, and from the existing right IJ port catheter as well. Eventually, we were able to navigate the wire into the right atrium. We then performed 2 serial dilations over the wire and placed a peel-away sheath. We could not navigate the sheath over 2 the SVC, so we exchange the wire for a stiff Glidewire and then we were able to navigate sheath more proximally. Next, local anesthesia was administered to the right chest and over the neck. A small incision was made on the right chest and we tunneled a 27 cm dual lumen PermCath from the right chest to the jugular access site. We then attempted to pass the catheter through the peel-away sheath into the central system, but we could only passive midway through the innominate vein. We therefore placed a stiff wire through the catheter and were able to advance is a little bit further, but still only up to but not through the SVC. We placed a second stiff wire through but still cannot advanced any further. The ports did not drawback easily, and I was not comfortable with the position. We pulled the catheter back, replaced both wires through the catheter, and again tried navigated further to the SVC. Unfortunately, the furthest I navigate the tips was to the distal innominate vein near the SVC junction. However, after this replacement, we were able to drop back and flushed both ports easily. The ports were heparin locked and appropriate caps were placed. We irrigated with saline in the jugular access site was closed with deep and superficial interrupted Monocryl sutures. Dermabond was placed at the skin. The exit site of the chest was closed with Prolene sutures and the catheter was secured to the chest wall with traditional Prolene sutures. Sterile dressings were applied. Despite the challenges placing this catheter, the labile blood pressure during the case ranging from 90 mmHg systolic to 220 mmHg systolic, the patient tolerated the procedure well and blood pressure and heart rate and normalized case close. He was then taken to recovery in stable condition and will be sent to the ER for admission. ESTIMATED BLOOD LOSS: Approximately 5 mL. COMPLICATIONS: None, but this was a very challenging PermCath placement. PLAN: It is okay to use the PermCath for dialysis. We will plan to follow along with the patient and try to obtain op notes for his left AV graft placement and see if we can formulate a plan for possible declot versus new access. I'm not sure with the patient's prognosis is at this point, and determining that would be helpful for planning new access. We appreciate the opportunity to participate in the care of this patient. MELI MACKENZIE MD May 27, 2020 17:40
[2020-05-27 18:10] VITALS: BP 108/70
== END ==
LOC: M IRPRO 14:29
PROVIDERS: ATTEND Physician Assistant
DX: T82.868A Thrombosis due to vascular prosthetic devices, implants and grafts, initial encounter (principal); N18.6 End stage renal disease; X58.XXXA Exposure to other specified factors, initial encounter; Z99.2 Dependence on renal dialysis

== ENCOUNTER 2020-07-16 20:59 | Inpatient (IN) | payer MEDICARE ==
[~2020-07-16] VITALS: Ht 177.8 cm; Wt 73.6 kg
[~2020-07-16 20:59] MED LIST changes: +ASPI81CH8 PO; +ELIQ2.5T PO; +PANT40TA29 PO
[2020-07-16] MEDS ORDERED: NS 1,000 ML IV ONE (21:15)
[2020-07-16] MEDS ORDERED: ONDANSETRON 4MG/2ML VIAL IV ONE (21:30)
[2020-07-16] MEDS: MORPHINE 4 MG/ML 1ML VIAL/SYRINGE (J2270) IV PRN (22:26)
[2020-07-16 22:29] LABS: BASO # 0.1 10^3/uL (0.0-0.2); BASO % 0.4 % (0.0-1.0); EOS # 0.1 10^3/uL (0.0-0.5); EOS % 0.5 % (0.0-3.0); HEMATOCRIT 37.3 % (42.0-52.0); HEMOGLOBIN 11.2 g/dl (13.5-17.5); LYMPH # 0.6 10^3/uL (1.5-5.0); LYMPH % 4.3 % (24.0-44.0); MEAN CORPUSCULAR HEMOGLOBIN 28.4 pg (27.0-33.0); MEAN CORPUSCULAR VOLUME 94.4 fl (80.0-96.0); MONO # 0.7 10^3/uL (0.0-0.8); MONO % 4.9 % (2.0-8.0); NEUTROPHILS # 12.6 10^3/uL (1.5-8.5); NEUTROPHILS % 87.6 % (36.0-66.0); PLATELET COUNT, AUTOMATED 283 10^3/uL (150-450); RED BLOOD COUNT 3.95 10^6/uL (4.30-6.10); WHITE BLOOD COUNT 14.4 10^3/uL (4.0-10.0)
[2020-07-16 22:39] LABS: INR 1.21; PROTHROMBIN TIME 15.6 SECONDS (12.5-14.3)
[2020-07-16 22:40] LABS: PARTIAL THROMBOPLASTIN TIME 82.8 SECONDS (24.2-38.5)
[2020-07-16 23:43] LABS: ALBUMIN 2.3 GM/DL (3.2-5.2); BILIRUBIN,DIRECT 0.1 MG/DL (0.0-0.2); BILIRUBIN,TOTAL 0.3 MG/DL (0.2-1.0); CALCIUM LEVEL 8.1 MG/DL (8.8-10.2); CK-MB VALUE MASS 1.9 NG/ML (<3.6); CREATININE FOR GFR 2.32 MG/DL (0.70-1.30); GLOMERULAR FILTRATION RATE 29.2 (>42); MB/CK RELATIVE INDEX 11.18 (< OR =4); POTASSIUM SERUM 3.6 MEQ/L (3.5-5.1); TOTAL PROTEIN 6.6 GM/DL (6.4-8.2); TROPONIN I 0.02 NG/ML (< 0.10)
--- NOTE | 2020-07-17 00:49 | REPVR ---
PROCEDURE INFORMATION: Exam: CT Chest Without Contrast; Diagnostic Exam date and time: 07/16/2020 9:36 PM Age: 75 years old Clinical indication: Chest pain; Type not specified; Additional info: Pleural effusion, upper abd pain TECHNIQUE: Imaging protocol: Diagnostic computed tomography of the chest without contrast. Radiation optimization: All CT scans at this facility use at least one of these dose optimization techniques: automated exposure control; mA and/or kV adjustment per patient size (includes targeted exams where dose is matched to clinical indication); or iterative reconstruction. COMPARISON: CT Chest without contrast 06/08/2020 10:29 AM FINDINGS: Limited study without IV contrast. Large left hemithorax hydropneumothorax is present, with an indwelling catheter present. The fluid component has increased significantly over the interim, with increased mass effect upon the remaining left lung, which is compressed medially. This suggests that the catheter may be occluded. Multiple cavitary lesions in the right lung have similar appearance compared to the prior exam. No underlying pulmonary edema. No enlarged mediastinal nodes. Thoracic aorta is ectatic without focal aneurysm. No new osseous abnormality IMPRESSION: Increase in left-sided hydropneumothorax despite the presence of catheter. The fluid component has increased significantly, suggesting that the catheter may be occluded or not functioning properly. Stable appearance of multiple right lung cavitary lesions Electronically signed by: Wu Mendez On 07/17/2020 00:49:48 AM
--- NOTE | 2020-07-17 00:55 | REPVR ---
PROCEDURE INFORMATION: Exam: CT Abdomen And Pelvis Without Contrast Exam date and time: 07/16/2020 9:30 PM Age: 75 years old Clinical indication: Abdominal pain; Generalized; Additional info: Abd pain, n/v/d, esrd TECHNIQUE: Imaging protocol: Computed tomography of the abdomen and pelvis without contrast. Radiation optimization: All CT scans at this facility use at least one of these dose optimization techniques: automated exposure control; mA and/or kV adjustment per patient size (includes targeted exams where dose is matched to clinical indication); or iterative reconstruction. COMPARISON: No relevant prior studies available. FINDINGS: ABDOMEN: Limited evaluation without enteric or IV contrast. Noncontrast liver, spleen and adrenal glands are unremarkable. Pancreas is atrophic and demonstrates calcifications suggesting remote pancreatitis. Postsurgical changes are present around the pancreatic head region suggesting a partial pancreas resection. Gallbladder is surgically absent and pneumobilia is present suggesting prior sphincterotomy. Noncontrast kidneys show no stone or obstructive uropathy. Atherosclerotic changes are seen in the a abdominal aorta. Stomach is distended with ingested material. There is anastomosis between the distal stomach in the jejunum consistent with a Whipple procedure, and there may be a narrowing at the anastomosis. Multiple small bowel loops are dilated and there are inspissated enteric contents within right mid abdominal small bowel is dilated up to 4 cm. Small volume of extraluminal air is present in the anterior right mid abdomen just below the liver adjacent to the distended bowel loops. This suggests a focal perforation. PELVIS: Urinary bladder appears normal. Dystrophic prostate calcifications are noted. Appendix is not seen. No RLQ inflammation to suggest appendicitis. Bony structures are normal except for lumbar spine degenerative disc changes. IMPRESSION: Small volume of extraluminal pneumoperitoneum in the anterior right mid abdomen with an adjacent dilated small bowel loops measuring up to 4 cm in diameter with inspissated enteric contents and dilatation of the adjacent bowel loop suggesting a focal small bowel obstruction. No obvious obstructing mass. Distention of the stomach with ingested material, and possible narrowing or stricture at the gastrojejunostomy anastomosis. Electronically signed by: Wu Mendez On 07/17/2020 00:55:22 AM
--- NOTE | 2020-07-17 01:17 | ECGEPIP ---
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
[2020-07-17] MEDS ORDERED: PIPERACILLIN/TAZOBACTAM SOD 3.375 GM in D5W MINI-BAG PLUS 50 ML IV ONE (01:45)
[2020-07-17] MEDS: MORPHINE 4 MG/ML 1ML VIAL/SYRINGE (J2270) IV PRN (04:05)
--- NOTE | 2020-07-17 05:43 | HPEPDOC ---
[facility] Medical History & Physical Date of Admission Jul 17, 2020 Date of Service: Jul 17, 2020 Primary Care Physician: ILDEFONSO LEONARD DO Attending Physician: Ricky Mejia History and Physical TIME OF SERVICE: 555am REASON FOR CONSULT: medical co-management CC: abdominal pain HISTORY OF PRESENT ILLNESS: This 75 yr old M developed abdominal pain on Tuesday. Yesterday after completing dialysis he came to the ER for evaluation. The pain begun at the right upper part of his abdomen and radiated to his belly button, it 8/10 in severity at its worst, was made worse by eating and improved after he received pain meds in the ER. He has vomited several times, denies having blood in the vomit, but reports having stools that are darker than usual. He is able to pass gas; his last BM was yesterday prior to dialysis. He denies having f/c. He has had several episodes of similar pain in the past which he thinks were due to an obstruction and according to the patient managed by placing a a tube in his nose; he denies having surgery to fix the obstructions. He REVIEW OF SYSTEMS: 12-point review of systems negative except as listed in HPI PAST MEDICAL/ SURGICAL HISTORY: Stage T3N1 pancreatic adenocarcinoma with mets to the lung and chronic left pleural effusion that is managed with a pigtail catheter Essential HTN Chemo induced ? ESRD on dialysis MWF via permacath (L AV fistula is not functioning) Pulmonary HTN PASP 37 (group 3 ?) Hx of Vitamin D deficiency Recurrent SBOs Hiatal hernia BPH SOCIAL HISTORY: He smokes, doesnt drink alcohol and lives with his . FAMILY HISTORY: Asthma ALLERGIES: Please see below. HOME MEDICATIONS: Please see below. PHYSICAL EXAMINATION: Vital Signs Date Time Temp Pulse Resp B/P (MAP) Pulse Ox O2 Delivery O2 Flow Rate FiO2 07/16/20 20:59 97.2 50 20 93/58 (70) 95 Room Air 07/17/20 00:08 GENERAL APPEARANCE: well nourished and developed/ NAD / he has dried yellow vomitus around the neck and on the anterior part of his hospital gown HEENT: temporal wasting / MMM&P CARDIOVASCULAR: RRR/NMRG LUNGS: CTAB on RA ABDOMEN: old post surgical scars are visible / the abdomen is flat / he has BS / the abdomen is soft and tender with deep palpation of the right lumbar region MUSCULOSKELETAL: NCAT INTEGUMENT: he is not jaundice, pale or diaphoretic NEUROLOGICAL: CN 2-12 grossly intact / speech not dysarthric PSYCHIATRIC: A&Ox 3 LABORATORY DATA: 07/16/20 22:09 IMAGING: CT chest IMPRESSION: Increase in left-sided hydropneumothorax despite the presence of catheter. The fluid component has increased significantly, suggesting that the catheter may be occluded or not functioning properly. Stable appearance of multiple right lung cavitary lesions. CT abd/pelvis IMPRESSION: Small volume of extraluminal pneumoperitoneum in the anterior right mid abdomen with an adjacent dilated small bowel loops measuring up to 4 cm in diameter with inspissated enteric contents and dilatation of the adjacent bowel loop suggesting a focal small bowel obstruction. No obvious obstructing mass. Distention of the stomach with ingested material, and possible narrowing or stricture at the gastrojejunostomy anastomosis. ASSESSMENT: Mr. Acosta is a 75 yr old smoker w a hx of metastatic pancreatic cancer, ESRD, H TN, Pulm HTN and reccurent SBOs who presented w n/v and abdominal pain and was found to have pneumoperitoneum, SBO and GI bleed; we were consulted for medical co-management. PLAN: 1 Pneumoperitoneum / SBO +/- ischemia Plan: per primary / Binafran and morphine for pain / there no need for p erio-operative clearance prior to an emergent surgery, the patient can be given K-centra to quickly reverse the effects of Eliquis (the dose can be discussed with the Pharmacist plant taxonomist) 2 Upper GI Bleed The pt has melena His anemia is likely multifactorial Plan:IV PPI / f/u serial Hg, Iron studies & stool occult / hold Eliquis 3 SIRS vs early Sepsis He has leukocytosis and tachycardia -Source likely GI qSOFA score = 1 = not high risk Plan: c/w IVF & Zosyn 4 Debility / Deconditioning The patient reports being weaker and not being able to walk up the stairs in his house w/o assistance after his recent hospital admission Plan: day time team to consult PT when the pt is more stable 5 Chemo induced ? 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 Plan: day time team to call IR to discuss either adjusting or replacing pigtail catheter 8 Tobacco abuse Plan: Smoking cessation education Thank you for consulting us, we will continue to follow the patient with you. Home Medications Scheduled Apixaban (Eliquis) 2.5 Mg Tablet, 2.5 MG PO BID Aspirin (Aspirin EC) 81 Mg Tablet.dr, 81 MG PO DAILY Midodrine HCl (Midodrine HCl) 5 Mg Tablet, 5 MG PO BID Pantoprazole Sodium (Pantoprazole Sodium) 40 Mg Tablet.dr, 40 MG PO DAILY Miscellaneous Medications [Patient Comment] MED REC COMPLETED VIA EXTERNAL MED HISTORY AND PHONE CALL WITH SPOUSE Allergies Coded Allergies: No Known Allergies (Unverified , 07/27/18) A-FIB/CHADSVASC A-FIB History Current/History of A-Fib/PAF?: No Current PO Anticoag Therapy: No OMAR DIAZ MD Jul 17, 2020 05:43
[2020-07-17] MEDS ORDERED: ELIQ2.5T PO (06:02)
[2020-07-17] MEDS ORDERED: ASPI-161 PO (06:02)
[2020-07-17] MEDS ORDERED: PANT40TA29 PO (06:02)
[2020-07-17] MEDS ORDERED: PATIENT COMMENT (06:02)
[2020-07-17] MEDS ORDERED: MIDO5TA PO (06:02)
[2020-07-17] MEDS: LR 1,000 ML IV SCH (07:30)
[2020-07-17 10:49] LABS: RSV AMPLIFICATION NEGATIVE (NEGATIVE)
[2020-07-17] MEDS ORDERED: PIPERACILLIN/TAZOBACTAM SOD 3.375 GM in D5W MINI-BAG PLUS 50 ML IV SCH ×2 (11:00→11:40)
[2020-07-17] MEDS: PANTOPRAZOLE 40MG VIAL (C9113 PER 1) IV SCH ×2 (11:51→20:28)
[2020-07-17] MEDS: MORPHINE 2 MG/ML 1ML VIAL (J2270) IV PRN (11:52)
[2020-07-17] MEDS: MIDODRINE 5 MG TAB PO SCH ×2 (11:52→16:29)
--- NOTE | 2020-07-17 12:05 | IPNPDOC ---
Text Note Date of Service The patient was seen on 07/17/20. NOTE The night hospitalist signed it out to me that for this patient Dr Mejia was the admitting physician and hospitalist group is consulting for medical Comorbidities. I was informed by ED charge nurse that hospitalist is the admitting team as per Dr eMjia. I spoke with Dr Mejia now and he said that he had a conservation with Dr Carbone early this morning about 5:30 am that he felt this being a complicated Patient it would be an appropriate admission for the the hospitalist. However Dr Carbone clearly signed out that this being a bowel perforation he is being admitted by surgery and we are consulted and we will follow along. Due to this miscommunication unfortunately patient did not have any admission orders till now. I have just put in admission orders. VS,Brianbone, I+O VS, Brianbone, I+O Laboratory Tests 07/16/20 22:09 Vital Signs Date Time Temp Pulse Resp B/P (MAP) Pulse Ox O2 Delivery O2 Flow Rate FiO2 07/17/20 10:00 69 122/65 (84) 96 07/17/20 06:23 18 07/17/20 00:23 Room Air 07/16/20 20:59 97.2 I&O- Last 24 Hours up to 6 AM 07/17/20 05:59 Intake Total 1050 ml Balance 1050 ml HUSSEIN FRANCO MD Jul 17, 2020 12:05
--- NOTE | 2020-07-17 12:18 | REP ---
INDICATION: compare pleural efussion to previous xray. COMPARISON: PA and lateral plain film study of the chest dated 06/18/[address] dated 07/16/2020. TECHNIQUE: Portable AP view of the chest with the patient sitting. FINDINGS: The known large left hydropneumothorax is again identified on this single AP portable view of the chest but seen to better advantage on the comparison studies. The known nodular densities in the right lung are again somewhat visible on this portable study but seen to better advantage by CT. There is a right IJ central venous catheter with the tip in the superior vena cava in satisfactory position. This is unchanged from 06/18/2020. There is a left IJ central venous catheter with the tip in the innominate vein, also unchanged. Cardiac size is normal. The shirley, mediastinum, and skeletal structures are unremarkable. IMPRESSION: Persisting large left hydropneumothorax, seen to better advantage on the comparison studies. Known right lung nodules. Bilateral IJ central venous catheters. <Electronically signed by Garo Linda > 07/17/20 [id number]
[2020-07-17 12:28] LABS: BASO # 0.1 10^3/uL (0.0-0.2); BASO % 0.5 % (0.0-1.0); EOS # 0.1 10^3/uL (0.0-0.5); EOS % 0.8 % (0.0-3.0); HEMATOCRIT 34.1 % (42.0-52.0); HEMOGLOBIN 10.4 g/dl (13.5-17.5); LYMPH # 0.8 10^3/uL (1.5-5.0); LYMPH % 7.3 % (24.0-44.0); MEAN CORPUSCULAR HEMOGLOBIN 28.9 pg (27.0-33.0); MEAN CORPUSCULAR HGB CONC 30.5 g/dl (32.0-36.5); MEAN CORPUSCULAR VOLUME 94.7 fl (80.0-96.0); MONO # 0.5 10^3/uL (0.0-0.8); MONO % 4.9 % (2.0-8.0); NEUTROPHILS # 9.5 10^3/uL (1.5-8.5); NEUTROPHILS % 85.5 % (36.0-66.0); PLATELET COUNT, AUTOMATED 267 10^3/uL (150-450); WHITE BLOOD COUNT 11.1 10^3/uL (4.0-10.0)
[2020-07-17 13:10] LABS: ALBUMIN 2.1 GM/DL (3.2-5.2); BILIRUBIN,TOTAL 0.3 MG/DL (0.2-1.0); CALCIUM LEVEL 8.2 MG/DL (8.8-10.2); CREATININE FOR GFR 2.96 MG/DL (0.70-1.30); POTASSIUM SERUM 4.5 MEQ/L (3.5-5.1); TOTAL PROTEIN 6.1 GM/DL (6.4-8.2)
[2020-07-17 13:11] VITALS: BP 104/70
[2020-07-17] MEDS: ONDANSETRON 4MG/2ML VIAL IV PRN (13:11)
--- NOTE | 2020-07-17 14:22 | REP ---
INDICATION: NG tube placement. 2:10 p.m. film. COMPARISON: Comparison chest x-ray July 17, 2020, 12:05 p.m. film, and June 18, 2020. TECHNIQUE: Portable upright AP chest radiograph. FINDINGS: Nasogastric tube is seen entering the body of the stomach in the left upper quadrant. Hydropneumothorax persists at the left base. Left chest tube is seen in place unchanged in position. A right-sided central venous line terminates in the expected location of superior vena cava. A left-sided central venous line terminates in the midline consistent with brachiocephalic vein position. There is a nodular opacity in the right perihilar region which is unchanged. Surgical clips are scattered in the upper abdomen.. IMPRESSION: NG tube tip to the upper gastric body. Otherwise unchanged from the earlier film today.. <Electronically signed by Edwin Wood > 07/17/20 [id number]
[2020-07-17 15:55] LABS: FOLATE 23.3 NG/ML (>5.4)
--- NOTE | 2020-07-17 15:56 | IPNPDOC ---
Subjective Date Seen The patient was seen on 07/17/20. Subjective Chief Complaint/HPI Had an episode of vomiting. Says abdominal pain is better after the pain meds but then comes back again. he drained the pleurx cath yesterday with 175 cc out. He does it every other day. as per they usually get about 200 to 250 cc out. Objective Physical Examination General Exam: Positive: Alert, Cooperative, No Acute Distress Eye Exam: Positive: PERRLA, Conjunctiva & lids normal, EOMI; Negative: Sclera icteric ENT Exam: Positive: Atraumatic, Mucous membr. moist/pink, Pharynx Normal Neck Exam: Positive: Supple; Negative: JVD, thyromegaly Chest Exam: Positive: Clear to auscultation, Normal air movement, Other (permcath on the left and chemoport on the right. ) Heart Exam: Positive: Rate Normal, Regular Rhythm, Normal S1, Normal S2, Murmurs (systolic murmur present); Negative: Rubs Abdomen Exam: Positive: Soft, Tenderness (right upper quadrant and periumbilical area), Other (few tinkling bowel sounds heard. ); Negative: Normal bowel sounds, Hepatospenomegaly Extremity Exam: Negative: Clubbing, Cyanosis, Edema Assessment /Plan Assessment Mr. Acosta is a 75 yr old smoker w a hx of metastatic pancreatic cancer with mets to lungs with h/o wipple's procedure in 2000 with mets to lungs in 2014 had chemotherapy which finished in 2016 refused any further chemotherapy in 2019, Chronic left sided hydropneumothorax with chronic pleurx catheter in place from 05/09/20, ESRD started on HD in may 2020, Perm cath placement on 05/27/20, chronic hypotension, Pulm HTN and recurrent SBOs who presented w n/v and abdominal pain and was found to have pneumoperitoneum, SBO and GI bleed; we were consulted for medical co-management. CT abd/pelvis showed IMPRESSION: Small volume of extraluminal pneumoperitoneum in the anterior right mid abdomen with an adjacent dilated small bowel loops measuring up to 4 cm in diameter with inspissated enteric contents and dilatation of the adjacent bowel loop suggesting a focal small bowel obstruction. No obvious obstructing mass. Distention of the stomach with ingested material, and possible narrowing or stricture at the gastrojejunostomy anastomosis. Small bowel obstruction with perforation Pneumoperitoneum +/- ischemia Surgical consult Dr Mejia. will probably need to go to OR NG tube, zosyn, IVF, NPO stop eliquis Upper GI Bleed with chronic anemia The pt had melena PPI Chemo induced ? ESRD MWF via permacath Nephro consulted. Chronic hypotension Midodrine Pancreatic adenocarcinoma with mets to the lung and chronic left hydropneumot horax. 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 Chronic left hydropneumothorax. CT chest IMPRESSION: Increase in left-sided hydropneumothorax despite the presence of catheter. The fluid component has increased significantly, suggesting that the catheter may be occluded or not functioning properly. Stable appearance of multiple right lung cavitary lesions. patient reported that he drained it yesterday. Will get Cxr Debility / Deconditioning The patient reports being weaker and not being able to walk up the stairs in his house w/o assistance after his recent hospital admission Plan/VTE VTE Prophylaxis Ordered?: Yes VS, I&O, 24H, Fishbone Vital Signs/I&O Vital Signs Date Time Temp Pulse Resp B/P (MAP) Pulse Ox O2 Delivery O2 Flow Rate FiO2 07/17/20 10:00 69 122/65 (84) 96 07/17/20 06:23 18 07/17/20 00:23 Room Air 07/16/20 20:59 97.2 I&O- Last 24 Hours up to 6 AM 07/17/20 05:59 Intake Total 1050 ml Balance 1050 ml Laboratory Data 24H LABS Laboratory Tests 2 07/16/20 22:09: Immature Granulocyte % (Auto) 2.3, Neutrophils (%) (Auto) 87.6H, Lymphocytes (%) (Auto) 4.3L, Monocytes (%) (Auto) 4.9, Eosinophils (%) (Auto) 0.5, Basophils (%) (Auto) 0.4, Neutrophils # (Auto) 12.6H, Lymphocytes # (Auto) 0.6L, Monocytes # (Auto) 0.7, Eosinophils # (Auto) 0.1, Basophils # (Auto) 0.1, Nucleated Red Blood Cells % (auto) 0.0, Prothrombin Time 15.6H, Prothromb Time International Ratio 1.21, Activated Partial Thromboplast Time 82.8H, Anion Gap 7L, Glomerular Filtration Rate 29.2L, Lactic Acid Level 2.0, Calcium Level 8.1L, Total Bilirubin 0.3, Direct Bilirubin 0.1, Aspartate Amino Transf (AST/SGOT) 16, Alanine Aminotransferase (ALT/SGPT) 11L, Alkaline Phosphatase 115, Total Cr eatine Kinase 17L, Creatine Kinase MB 1.9, Creatine Kinase MB Relative Index 11.18H, Troponin I 0.02, Total Protein 6.6, Albumin 2.3L, Albumin/Globulin Ratio 0.5, Lipase 22L 07/17/20 09:58: Coronavirus (COVID-19)(PCR) NEGATIVE, Influenza Type A (RT-PCR) NEGATIVE, Influenza Type B (RT-PCR) NEGATIVE, Respiratory Syncytial Virus (PCR) NEGATIVE CBC/BMP Laboratory Tests 07/16/20 22:09 HUSSEIN FRANCO MD Jul 17, 2020 11:35
[2020-07-17 16:00] VITALS: BP 137/84
--- NOTE | 2020-07-17 16:52 | CR ---
CONSULTATION DATE: 07/17/2020 REASON FOR CONSULTATION: Abdominal pain with minimal free air. HISTORY OF PRESENT ILLNESS: The patient is a 75-year-old man with several severe underlying medical conditions. He had undergone a Whipple procedure for pancreatic cancer approximately 20 years ago at [facility]. He has been treated in the past for metastatic pancreatic cancer with chemotherapy. He has chronic kidney disease Stage V and is on hemodialysis via a left subclavian dialysis catheter. He has a left hydropneumothorax from alveolopleural fistula and has a PleurX catheter in place. He reports that on Tuesday, the 13 of July, he developed some upper abdominal discomfort. This was fairly mild at first. He had dialysis on Tuesday. The pain apparently persisted. It remained in his right upper quadrant. The pain worsened over the ensuing several days. He had dialysis again on the . His pain became more severe and he presented to the Emergency Department for evaluation. In the Emergency Department, he underwent a CT scan that showed some mildly dilated small bowel loops in the right upper quadrant with a minimal amount of free air adjacent to one of these loops. There were multiple postoperative changes noted associated with his Whipple procedure. I was consulted to evaluate regarding this abdominal issue. ALLERGIES: Patient denies any known medication allergies. MEDICATIONS: The patient reports taking an aspirin 81 mg tablet daily. He is on pantoprazole 40 mg daily and Eliquis 2.5 mg twice daily. PAST SURGICAL HISTORY: Significant for a Whipple apparently in 2000 at [facility], the date is per a medical oncology office note from 2019. He had received some radiation therapy at the time as well. The patient has subsequently had a fistula placed in I believe his left arm which failed. In May 2020, a left subclavian hemodialysis catheter was placed. He had a PleurX catheter placed in the left chest sometime within the last few months for a hydropneumothorax on the left. He had also required a left chest tube back in about May 2020 as well. PAST MEDICAL HISTORY: Significant for pancreatic cancer with known lung metastases. He has endstage renal disease on hemodialysis. He has now a chronic hydropneumothorax on the left. He has a history of pneumonia. Per a recent Nephrology note, he has a history of secondary hyperparathyroidism. He is currently on Eliquis anticoagulation to try to maintain patency of his dialysis catheter. FAMILY HISTORY: Noncontributory. SOCIAL HISTORY: He is a longtime smoker. REVIEW OF SYSTEMS: He has not had any recent chest pain. He has been having some nausea over the last few days with vomiting today. He reports a history of "twisted bowels" since he had his Whipple procedure but has not required surgery for any of these. He denies any new bone or joint problems. He denies any history of DVT or pulmonary embolus. He apparently reports that the PleurX catheter has been functional and that he had drained it earlier in the day. PHYSICAL EXAMINATION: Most recent vital signs show a pulse of 79, respiratory rate of 20 and his pulse oximetry is 96%. Blood pressure was 134/95. The patient is a chronically ill-appearing man lying quietly on the stretcher in the Emergency Department. He is alert, oriented and cooperative with the interview and exam. He has some obvious bilious staining of his shirt and his chin from emesis earlier. Sclera are anicteric. Mucous membranes are moist to somewhat tachy. The neck is without palpable mass. Heart exam shows a regular rhythm of approximately 80. Lungs showed diminished breath sounds in the left and generally clear sounds on the right. He has a hemodialysis catheter in the left infraclavicular fossa quite lateral. He has an Infusaport in the subcutaneous tissues of his right upper chest. There is a catheter coiled beneath a dressing in the left lower chest wall which is described as his PleurX pleural catheter. Abdominal exam shows a long chevron style incision that is old and well-healed across the upper abdomen. He has several smaller scars suggestive of drain sites. He has bowel sounds present in all four quadrants. There is some mild direct tenderness in the right upper quadrant fairly lateral. The other quadrants are nontender to palpation. The abdomen is perhaps somewhat full but soft. There is no evidence of hernia. He has palpable radial and dorsalis pedis pulses bilaterally with no lower extremity edema. LABORATORY DATA: White count is 14 with a differential showing 88% neutrophils, 4% lymphocytes and 5% monocytes. Hemoglobin is 11 with a hematocrit of 37. Coagulation studies shows a PT of 15.6, INR of 1.21 and a PTT of 82.8. Chemistry profile shows normal electrolytes with a BUN of 16, creatinine of 2.32 and a glucose of 112. His lactic acid is 2.0. Bilirubin is normal. Liver function tests are normal. Troponin is 0.02. Total protein is 6.6 and an albumin of 2.3. Lipase is 22. He had imaging obtained in the Emergency Department. This included a CT scan of the chest as well as a CT scan of the abdomen and pelvis. The chest CT showed a large left hydropneumothorax with a catheter in place. His Infusaport on the right and his dialysis catheter were also noted. The radiologist noted that from a scan on the 08 of June the amount of fluid in his chest had increased significantly. Several lesions were noted in the right lung. As to the CT scan of the abdomen and pelvis, the radiologist pointed out multiple postoperative changes associated with his Whipple. There were some mildly dilated small bowel loops in the right upper quadrant and the radiologist felt there was some inspissated enteric contents noted as well. He described a small volume of extraluminal air in the anterior right mid abdomen just below the liver suggesting a focal perforation. I reviewed the imaging personally and would agree there is a very small amount of air adjacent to a mildly to moderately dilated air filled loop of small bowel in the right mid to upper abdomen. I do not see any significant free fluid within the abdomen and there is no other free air identified. IMPRESSION: 1. Metastatic pancreatic cancer. 2. Endstage renal disease on hemodialysis. 3. Chronic left hydropneumothorax with a PleurX catheter in place. 4. Anemia. 5. Secondary hyperparathyroidism. 6. Abdominal pain with a small amount of free air consistent with a limited bowel perforation. 7. Eliquis anticoagulation. RECOMMENDATIONS: At this point, I would not recommend immediately bringing this patient to the Operating Room for his apparent bowel perforation. He remains hemodynamically stable with a minimal amount of free air. The etiology of his perforation is not clear. It could be that this represents a perforation from obstruction from adhesions. However, there is not an obvious obstruction present now. It could be that this represents a small area of ischemia that has caused a perforation. There is no free fluid and his abdominal exam reveals bowel sounds in all four quadrants with only some limited tenderness in the right upper quadrant. Patient has multiple medical issues that must be addressed and he remains anticoagulated on Eliquis at this time. I believe the patient should be admitted by the Hospitalist for management and coordination of the management of the multiple other medical issues including his need for dialysis and possible attention to his pleural catheter. Treatment with antibiotics is essential and he has received Zosyn already and I would recommend continuing this. If his other medical issues remains stable and his anticoagulation resolves, then I can consider surgical intervention as necessary for his apparent limited perforation. AI
--- NOTE | 2020-07-17 17:58 | IPN ---
PROGRESS NOTE DATE: 07/17/2020 HISTORY: The patient is a 75-year-old man with multiple medical problems admitted this morning through the Emergency Department for right upper quadrant pain. A CT scan showed a minimal amount of free air adjacent to a mildly dilated air filled loop of bowel suggesting a perforation. He was started on Zosyn. Consultation was requested from the Hospitalist Service for his underlying pancreatic cancer, end-stage renal disease on dialysis, Eliquis anticoagulation, and large left hydropneumothorax. The patient reports that his discomfort has not worsened significantly. He is canal tender only in the high right upper quadrant. OBJECTIVE: VITAL SIGNS: He has remained afebrile since presentation. His pulse is in the 70's to as high as 101. Blood pressure is excellent. INTAKE AND OUTPUT: Yesterday he had 1,000 in. His urine output does not seem to be getting measured. PHYSICAL EXAMINATION: GENERAL APPEARANCE: The patient is sitting slightly propped up on a stretcher. He is alert and cooperative. He appears somewhat uncomfortable and chronically ill. HEART: Regular rhythm. LUNGS: Markedly diminished breath sounds on the left. ABDOMEN: Somewhat full but soft and he has tenderness in the right subcostal area far laterally only. This does not seem worse then when I had seen him much earlier in the day. LABORATORY STUDIES: Laboratory studies today at about noon showed a white count of 11, with a differential showing 86% neutrophils and 7% lymphocytes. Hemoglobin is 10 with a hematocrit of 34 and the platelet count is 267,000. He had a chemistry profile that showed a sodium of 140, potassium 4.5, chloride 108, CO2 of 27, BUN 20, creatinine 3 and a glucose of 99. Total protein is 6.1 with an albumin of only 2.1. IMPRESSION: The patient has a presumed small perforation of the small bowel with only a minimal amount of air adjacent to that loop of bowel. He is not complaining of any further discomfort now. I have been waiting for his Eliquis to wear off and for his medical issues to be optimized as much as possible. PLAN: The patient will be continued on his Zosyn for now. I will continue to monitor his abdominal pain clinically. We will obtain a repeat CT scan of the abdomen on the morning of the to assess the volume of free air. If the air is diminished or stable, then I would recommend continued treatment with antibiotics and observation only. If there is clearly more evidence for a developing infection with more free air, then I will proceed with laparoscopy and possible laparotomy. The patient was counseled regarding this plan and is agreeable. AI
[2020-07-17 20:00] VITALS: BP 131/79
[2020-07-17] MEDS: PIPERACILLIN/TAZOBACTAM SOD 2.25 GM in D5W MINI-BAG PLUS 50 ML IV SCH (20:28)
[2020-07-18] VITALS: BP 121/78
[2020-07-18 04:00] VITALS: BP 113/64
[2020-07-18] MEDS: PIPERACILLIN/TAZOBACTAM SOD 2.25 GM in D5W MINI-BAG PLUS 50 ML IV SCH ×3 (04:44→20:08)
[2020-07-18 05:50] LABS: BASO % 0.4 % (0.0-1.0); EOS # 0.2 10^3/uL (0.0-0.5); HEMATOCRIT 29.4 % (42.0-52.0); LYMPH # 0.7 10^3/uL (1.5-5.0); LYMPH % 8.3 % (24.0-44.0); MEAN CORPUSCULAR HEMOGLOBIN 29.8 pg (27.0-33.0); MEAN CORPUSCULAR HGB CONC 30.6 g/dl (32.0-36.5); MEAN CORPUSCULAR VOLUME 97.4 fl (80.0-96.0); MONO # 0.5 10^3/uL (0.0-0.8); MONO % 5.6 % (2.0-8.0); NEUTROPHILS # 6.9 10^3/uL (1.5-8.5); NEUTROPHILS % 82.5 % (36.0-66.0); PLATELET COUNT, AUTOMATED 221 10^3/uL (150-450); RED BLOOD COUNT 3.02 10^6/uL (4.30-6.10); WHITE BLOOD COUNT 8.4 10^3/uL (4.0-10.0)
[2020-07-18 06:14] LABS: CALCIUM LEVEL 7.5 MG/DL (8.8-10.2); CREATININE FOR GFR 3.34 MG/DL (0.70-1.30); GLOMERULAR FILTRATION RATE 19.2 (>42); POTASSIUM SERUM 3.9 MEQ/L (3.5-5.1)
[2020-07-18] MEDS: MORPHINE 2 MG/ML 1ML VIAL (J2270) IV PRN ×2 (07:53→09:56)
[2020-07-18 08:00] VITALS: BP 127/71
--- NOTE | 2020-07-18 08:49 | REP ---
INDICATION: follow free air COMPARISON: 07/16/2020 TECHNIQUE: Axial noncontrast images from the lung bases to the pubic symphysis with coronal and sagittal reformations. This CT examination was performed using the following dose reduction techniques: Automated exposure control, adjustment of mA and/or kv according to the patient's size, and use of iterative reconstruction technique. FINDINGS: Lung bases again demonstrate significant left hydropneumothorax with chest tube noted. Area of rounded consolidation and adjacent atelectasis with small pleural effusion at the right lung base increased from prior examination which may reflect chronic rounded atelectasis although acute active mass lesion cannot be excluded. Current examination again demonstrates small amount of pneumoperitoneum in the anterior right mid/upper abdomen overlying few mildly prominent loops of small bowel although the previously suspected small-bowel obstruction appears to have improved. The bowel pattern now is relatively nonspecific and without definite obstruction. The large bowel is grossly unremarkable. The patient is noted to be status post Whipple procedure. Pneumobilia within the liver is noted. Spleen, visualized pancreas, and bilateral adrenal glands are relatively normal/stable. The kidneys again demonstrate atrophic change without acute perinephric stranding or hydronephrosis. Pelvis demonstrates mild prostatomegaly with mass effect on the base of the bladder and small left inguinal hernia. Musculoskeletal structures demonstrate stable degenerative changes. IMPRESSION: 1. Small amount of pneumoperitoneum along the anterior right mid/upper abdomen essentially unchanged and certainly without increase. 2. The underlying small bowel pattern now demonstrates decreased distension suggesting mild progressive resolution to the previously suspected small-bowel obstruction. Close clinical observation and follow-up is recommended. There is no evidence for acute obstruction and no ascites or drainable collection/abscess. 3. Chronic nonacute findings as noted above. 4. Lung base changes include stable left hydropneumothorax along with mildly increased area of opacity, atelectasis and small pleural reaction at the right lung base. <Electronically signed by David Green > 07/18/20 [id number]
[2020-07-18] MEDS: MIDODRINE 5 MG TAB PO SCH ×2 (09:14→17:27)
[2020-07-18] MEDS: PANTOPRAZOLE 40MG VIAL (C9113 PER 1) IV SCH ×2 (09:14→21:30)
[2020-07-18] MEDS: LR 1,000 ML IV SCH (09:14)
[2020-07-18] MEDS ORDERED: DARBEPOETIN 200MCG/0.4ML *DIALYSIS* SYRINGE (J0882 PER 1MCG) IV SCH (09:25)
[2020-07-18] MEDS ORDERED: DARBEPOETIN 100 MCG/0.5 ML *DIALYSIS* SYRINGE (J0882) IV SCH (09:55)
--- NOTE | 2020-07-18 11:05 | IPNPDOC ---
Subjective Date Seen The patient was seen on 07/18/20. Subjective Chief Complaint/HPI continues to have right upper quadrant and periumbilical pain constant and sometimes has spasms. No bowel movement yet but reports that he is passing a little flatus. Objective Physical Examination General Exam: Positive: Alert, Cooperative, No Acute Distress Eye Exam: Positive: PERRLA, Conjunctiva & lids normal, EOMI; Negative: Sclera icteric ENT Exam: Positive: Atraumatic, Mucous membr. moist/pink, Pharynx Normal Neck Exam: Positive: Supple; Negative: JVD, thyromegaly Chest Exam: Positive: Clear to auscultation, Normal air movement, Other (permcath on the left and chemoport on the right. ) Heart Exam: Positive: Rate Normal, Regular Rhythm, Normal S1, Normal S2, Murmurs (systolic murmur present); Negative: Rubs Abdomen Exam: Positive: BS Hypoactive, Soft, Tenderness (right upper quadrant and periumbilical area); Negative: Normal bowel sounds, Hepatospenomegaly Extremity Exam: Negative: Clubbing, Cyanosis, Edema Assessment /Plan Assessment Mr. Acosta is a 75 yr old smoker w a hx of metastatic pancreatic cancer with mets to lungs with h/o wipple's procedure in 2000 with mets to lungs in 2014 had chemotherapy which finished in 2016 refused any further chemotherapy in 2019, Chronic left sided hydropneumothorax with chronic pleurx catheter in place from 05/09/20, ESRD started on HD in may 2020, Perm cath placement on 05/27/20, chronic hypotension, Pulm HTN and recurrent SBOs who presented w n/v and abdominal pain and was found to have pneumoperitoneum, SBO and GI bleed; we were consulted for medical co-management. CT abd/pelvis showed IMPRESSION: Small volume of extraluminal pneumoperitoneum in the anterior right mid abdomen with an adjacent dilated small bowel loops measuring up to 4 cm in diameter with inspissated enteric contents and dilatation of the adjacent bowel loop s uggesting a focal small bowel obstruction. No obvious obstructing mass. Distention of the stomach with ingested material, and possible narrowing or stricture at the gastrojejunostomy anastomosis. Small bowel obstruction with perforation Surgical consult Dr Mejia. repeat CT abd and pelvis on 07/18/20 1. Small amount of pneumoperitoneum along the anterior right mid/upper abdomen essentially unchanged and certainly without increase. 2. The underlying small bowel pattern now demonstrates decreased distension suggesting mild progressive resolution to the previously suspected small-bowel obstruction. There is no evidence for acute obstruction and no ascites or drainable collection/abscess. 3. Chronic nonacute findings as noted above. 4. Lung base changes include stable left hydropneumothorax along with mildly increased area of opacity, atelectasis and small pleural reaction at the right l araceli base. NG tube, zosyn, IVF, NPO stop eliquis GI Bleed with chronic anemia The pt had melena PPI Chemo induced ? ESRD MWF via permacath Nephro consulted. Chronic hypotension Midodrine Pancreatic adenocarcinoma with mets to the lung and chronic left hydropneumothorax. 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 Chronic left hydropneumothorax. CT chest IMPRESSION: Increase in left-sided hydropneumothorax despite the presence of catheter. The fluid component has increased significantly, suggest ing that the catheter may be occluded or not functioning properly. Stable appearance of multiple right lung cavitary lesions. patient reported that he drained it on 07/16/20 will need draining every other day. CXR stable left hydropneumothorax no worsening than before. Debility / Deconditioning The patient reports being weaker and not being able to walk up the stairs in his house w/o assistance after his recent hospital admission Plan/VTE VTE Prophylaxis Ordered?: Yes VS, I&O, 24H, Fishbone Vital Signs/I&O Vital Signs Date Time Temp Pulse Resp B/P (MAP) Pulse Ox O2 Delivery O2 Flow Rate FiO2 07/18/20 09:56 18 Room Air 07/18/20 08:00 97.3 77 127/71 (89) 96 07/17/20 00:23 I&O- Last 24 Hours up to 6 AM 07/18/20 06:00 Intake Total 950 ml Output Total 425 ml Balance 525 ml Laboratory Data 24H LABS Laboratory Tests 2 07/17/20 12:16: Anion Gap 5L, Glomerular Filtration Rate 22.0L, Calcium Level 8.2L, Total Bilirubin 0.3, Aspartate Amino Transf (AST/SGOT) 16, Alanine Aminotransferase (ALT/SGPT) 9L, Alkaline Phosphatase 111, Total Protein 6.1L, Albumin 2.1L, Albumin/Globulin Ratio 0.5 07/17/20 12:17: Immature Granulocyte % (Auto) 1.0, Neutrophils (%) (Auto) 85.5H, Lymphocytes (%) (Auto) 7.3L, Monocytes (%) (Auto) 4.9, Eosinophils (%) (Auto) 0.8, Basophils (%) (Auto) 0.5, Neutrophils # (Auto) 9.5H, Lymphocytes # (Auto) 0.8L, Monocytes # (Auto) 0.5, Eosinophils # (Auto) 0.1, Basophils # (Auto) 0.1, Nucleated Red Blood Cells % (auto) 0.0, Iron Level 67, Total Iron Binding Capacity 172L, Transferrin % Saturation 39.0, Ferritin 1385H, Vitamin B12 Level 656, Folate 23.3 07/18/20 05:11: Anion Gap 6L, Glomerular Filtration Rate 19.2L, Calcium Level 7.5L, Immature Granulocyte % (Auto) 1.2, Neutrophils (%) (Auto) 82.5H, Lymphocytes (%) (Auto) 8.3L, Monocytes (%) (Auto) 5.6, Eosinophils (%) (Auto) 2.0, Basophils (%) (Auto) 0.4, Neutrophils # (Auto) 6.9, Lymphocytes # (Auto) 0.7L, Monocytes # (Auto) 0.5, Eosinophils # (Auto) 0.2, Basophils # (Auto) 0.0, Nucleated Red Blood Cells % (auto) 0.0 CBC/BMP Laboratory Tests 07/17/20 12:16 07/17/20 12:17 07/17/20 18:10 07/17/20 23:53 07/18/20 05:11 HUSSEIN FRANCO MD Jul 18, 2020 11:05
[2020-07-18] MEDS: MORPHINE 4 MG/ML 1ML VIAL/SYRINGE (J2270) IV PRN ×2 (11:15→17:28)
[2020-07-18 12:00] VITALS: BP 110/54
[2020-07-18] MEDS ORDERED: NS 500 ML IV ONE (13:00)
--- NOTE | 2020-07-18 13:18 | IPN ---
PROGRESS NOTE DATE: 07/18/2020 HISTORY: Patient is a 75-year-old man who had presented on 07/16/2020 and was admitted in the elder counselor of 07/17/2020 with multiple medical issues and evidence for a bowel obstruction with a small amount of free air in the right upper quadrant. He had no signs of peritonitis other than some minimal tenderness in the right upper quadrant. He was treated with antibiotics. He was admitted by the hospitalist for management of his other medical issues which include metastatic pancreatic cancer, end-stage renal disease on hemodialysis, and a large chronic hemopneumothorax on the left with a PleurX catheter in place. He had a followup CT this morning and had been tentatively scheduled for surgery today if the CT showed worsening evidence for a bowel perforation. Vital signs show that he has remained afebrile over the past 24 hours. His pulse is in the 60s and 70s. Blood pressure is good. His room air oxygen saturations are in the low to mid 90s. Intake and output show that he had 650 in yesterday with 400 of gastric drainage recorded out. Patient would be due for hemodialysis today on his usual schedule. PHYSICAL EXAMINATION: Patient is alert and appears fairly comfortable. He still complains of some discomfort in his right upper quadrant. His nasogastric (NG) tube is in place and has a small amount of orangey-brown fluid in the container. This does not seem to be putting out much at the moment. Heart exam shows a regular rate and rhythm. Lung exam shows good lung sounds on the right with diminished sounds on the left. His abdomen is mildly full. He has some mild tenderness in the right upper quadrant. He otherwise has some bowel sounds present. LABORATORY STUDIES: Today: Show a white count of 8, which is improved from 11 yesterday. His hemoglobin is 9 with a hematocrit of 29 and a platelet count of 221,000. Differential count shows 82% neutrophils and 8% lymphocytes. Chemistry profile today shows a sodium of 140, potassium 3.9, chloride 108, CO2 of 26, BUN of 25, creatinine 3.3, and a glucose of 94. CT scan done this morning I reviewed personally and there is a report from the radiologist. He still has a minimal amount of free air adjacent to a loop of small bowel high in the right upper quadrant. The amount of free air is certainly no more but most likely the same or a hair less than it was on his initial CT. There is no evidence of any increased inflammation in this area. The dilation of the small bowel in the area seems to be slightly improved. IMPRESSION: Patient is doing well with a stable small amount of free air adjacent to a loop of bowel in the right upper quadrant. The radiologist felt that the dilation of the small bowel had improved somewhat and this is since his nasogastric (NG) tube was placed. RECOMMENDATIONS: At this point, the patient does not require urgent surgical intervention. He should remain on antibiotics. The nasogastric (NG) tube should remain in place. I advised him that we will monitor him for resolution of his bowel obstruction. If his obstruction does not resolve then surgical intervention may still be necessary and this would likely occur early this next week. He may require some sort of nutritional supplementation intravenously in the interim. TRUD
[2020-07-18 16:00] VITALS: BP 133/66
[2020-07-18] MEDS: ONDANSETRON 4MG/2ML VIAL IV PRN (17:28)
[2020-07-18 20:00] VITALS: BP 142/80
[2020-07-19] VITALS (7 sets, daily range): BP systolic 110–141; BP diastolic 60–75
[2020-07-19] MEDS: PIPERACILLIN/TAZOBACTAM SOD 2.25 GM in D5W MINI-BAG PLUS 50 ML IV SCH ×3 (03:39→20:08)
[2020-07-19 05:59] LABS: BASO # 0.1 10^3/uL (0.0-0.2); BASO % 0.7 % (0.0-1.0); EOS # 0.2 10^3/uL (0.0-0.5); EOS % 2.3 % (0.0-3.0); HEMATOCRIT 28.5 % (42.0-52.0); HEMOGLOBIN 8.5 g/dl (13.5-17.5); LYMPH # 0.7 10^3/uL (1.5-5.0); LYMPH % 7.6 % (24.0-44.0); MEAN CORPUSCULAR HEMOGLOBIN 29.1 pg (27.0-33.0); MEAN CORPUSCULAR HGB CONC 29.8 g/dl (32.0-36.5); MEAN CORPUSCULAR VOLUME 97.6 fl (80.0-96.0); MONO # 0.5 10^3/uL (0.0-0.8); MONO % 5.8 % (2.0-8.0); NEUTROPHILS % 80.8 % (36.0-66.0); PLATELET COUNT, AUTOMATED 240 10^3/uL (150-450); RED BLOOD COUNT 2.92 10^6/uL (4.30-6.10); WHITE BLOOD COUNT 8.7 10^3/uL (4.0-10.0)
[2020-07-19 06:42] LABS: CALCIUM LEVEL 7.5 MG/DL (8.8-10.2); CREATININE FOR GFR 2.47 MG/DL (0.70-1.30); GLOMERULAR FILTRATION RATE 27.2 (>42); POTASSIUM SERUM 4.1 MEQ/L (3.5-5.1)
[2020-07-19] MEDS ORDERED: GLUCOSE 4GM CHEW TABLET PO PRN (07:55)
[2020-07-19] MEDS ORDERED: DEXTROSE 50% 50 ML SYRINGE IV PRN (07:55)
[2020-07-19] MEDS ORDERED: GLUCAGON INJ 1MG VIAL SC PRN (07:55)
[2020-07-19] MEDS: MIDODRINE 5 MG TAB PO SCH ×2 (08:12→13:08)
[2020-07-19] MEDS: PANTOPRAZOLE 40MG VIAL (C9113 PER 1) IV SCH ×2 (08:12→20:09)
[2020-07-19] MEDS: D5W/0.9% SODIUM CHLORIDE 1,000 ML IV SCH (08:13)
--- NOTE | 2020-07-19 10:12 | CR ---
CONSULTATION DATE: 07/18/2020 REQUESTING PHYSICIAN: Polly Reaves MD CONSULTING PHYSICIAN: Natty Skelton MD REASON FOR CONSULTATION: Management of end-stage renal disease and hemodialysis. CHIEF COMPLAINT: Abdominal pain. HISTORY OF PRESENT ILLNESS: Michele Acosta is a 75-year-old male with past medical history of end-stage renal disease on hemodialysis every Tuesday, Tuesday, Tuesday, history of pancreatic adenocarcinoma with metastasis to the lungs and pleural effusion, chronic left PleurX catheter, pulmonary hypertension, multiple other comorbidities as mentioned below. He presented to the hospital yesterday with progressive abdominal pain. Pain started in the right upper quadrant of the abdomen and it radiates to his belly button, 8/10 in severity. It gets worse by eating and responds a little bit to the pain medications. He also complained of vomiting a few times at home. He was admitted under the surgical service with pneumoperitoneum and small-bowel obstruction. Nephrology service was called for further help in the management of end-stage renal disease. I saw and evaluated the patient today in the morning at bedside. He has NGT attached to suctioning. He is generalized fluid hydration. He is complaining of feeling thirsty and today is the patient's regular day of dialysis as well. PAST MEDICAL HISTORY: Past medical history of: 1. End-stage renal disease on hemodialysis every Tuesday, Tuesday, Tuesday. 2. History of pancreatic adenocarcinoma with metastasis to lungs. 3. History of recurrent left-sided pleural effusion. 4. Chronic PleurX catheter and he drains his left pleural cavity every other day. 5. History of pulmonary hypertension. 6. Recurrent small-bowel obstruction. 7. Hiatal hernia. 8. Benign prostatic hypertrophy (BPH). PAST SURGICAL HISTORY: Status post tunnel dialysis catheter, history of AV graft in the left arm, which is not working now. PleurX catheter placement, left side. Whipple procedure in 2000 at [facility]. The patient also had a left-sided chest tube in the past in May 2020. FAMILY HISTORY: No significant family history of end-stage renal disease requiring hemodialysis. SOCIAL HISTORY: The patient denies any smoking, illicit drug abuse or alcohol abuse. ALLERGIES: No known drug allergies. REVIEW OF SYSTEMS: Constitutional: He denies any fevers or chills. Eyes: He denies any blurry vision or double vision. ENT: Denies any dysphagia, odynophagia. Cardiovascular: He denies any chest pain or palpitations. Respiratory: He reports recurrent left-sided effusion, has PleurX catheter. Gastrointestinal (GI): He reports nausea, vomiting, abdominal pain and history of pancreatic cancer. Genitourinary (): He denies any dysuria, hematuria. He does report renal failure. Musculoskeletal: He denies any muscle aches and pains. Hematological/oncological: He reports history of pancreatic cancer. Skin: He denies any rashes or ulcers. 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 All other review of systems is negative. PHYSICAL EXAMINATION: General: The patient is awake, alert, oriented x3, lying in bed. Vital signs: Temperature is 97.8 degrees Fahrenheit, blood pressure 142/80, pulse is 85, respiratory rate of 18, saturating 100% on room air. Head and neck examination: Extraocular muscles are intact. Pupils equally round and reactive to light. Mucous membranes are dry. Neck is supple. He has a left IJ tunnel hemodialysis catheter. Cardiovascular: S1, S2 regular rate. No edema of the bilateral lower extremities. Respiratory: The patient has decreased breath sounds at the bases. Left chest wall PleurX catheter was noted. Abdomen: Soft, mildly tender to deep palpation. Right upper quadrant tenderness is noted. He has NGT attached to suctioning. Genitourinary (): Bladder is not palpable. Musculoskeletal: No clubbing or cyanosis. Pulses are 2+. He has cancer cachexia. 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 Power is 5/5 in all extremities. LABORATORY REVIEW: Complete blood count (CBC) showed a WBC of 8.4, hemoglobin is 9, platelets are 221. Basic metabolic panel (BMP) showed sodium 140, potassium 3.9, chloride 108, bicarbonate 26, BUN 25, creatinine is 3.3. IMAGING DATA: CAT scan of the abdomen and pelvis was done today. It showed a small amount of pneumoperitoneum along the anterior right mid upper abdomen, essentially unchanged. Small bowel pattern shows decreased distension. Stable left hydropneumothorax. CURRENT INPATIENT MEDICATIONS: The patient's medications include Ringer's lactate at 50 ml an hour. I gave the patient normal saline bolus, 500 ml. He is on Zosyn 2.25 gm q 8 hours. He has been started on Aranesp 200 mcg IV with hemodialysis. Heparin subcutaneous. Midodrine 5 mg by mouth twice a day. Morphine as needed. Zofran as needed and Protonix 40 mg IV twice a day. ASSESSMENT AND PLAN: 1. End-stage renal disease. Today is the patient's regular day of dialysis. Minimal fluid removal will be done during dialysis. The patient has NGT attached to suctioning. 2. Small-bowel obstruction. The patient is n.p.o. NGT to suctioning. IV antibiotics. No surgical intervention recommended as per surgical service. 3. Chronic left-sided pleural effusion. The patient gets the PleurX catheter drainage every other day. 4. Anemia and end-stage renal disease. The patient is getting Aranesp with dialysis. 5. Hypotension. Continue current dose of midodrine 5 mg by mouth twice a day. 6. History of pancreatic cancer with metastasis to lungs. The patient is currently not on any chemotherapy. He has a history of Whipple procedure in the past.
--- NOTE | 2020-07-19 10:17 | IPNPDOC ---
Subjective Date Seen The patient was seen on 07/19/20. Subjective Chief Complaint/HPI Feeling ok, No fever or chills, abdominal pain much better now only localized at one point in the right upper quadrant, passing some flatus. N bowel movement yet. Objective Physical Examination General Exam: Positive: Alert, Cooperative, No Acute Distress Eye Exam: Positive: PERRLA, Conjunctiva & lids normal, EOMI; Negative: Sclera icteric ENT Exam: Positive: Atraumatic, Mucous membr. moist/pink, Pharynx Normal Neck Exam: Positive: Supple; Negative: JVD, thyromegaly Chest Exam: Positive: Clear to auscultation, Normal air movement, Other (permcath on the left and chemoport on the right. ) Heart Exam: Positive: Rate Normal, Regular Rhythm, Normal S1, Normal S2, Murmurs (systolic murmur present); Negative: Rubs Abdomen Exam: Positive: Normal bowel sounds, Soft, Tenderness (right upper quadrant and periumbilical area); Negative: Hepatospenomegaly Extremity Exam: Negative: Clubbing, Cyanosis, Edema Psych Exam: Positive: Memory Intact, Oriented x 3 Assessment /Plan Assessment Mr. Acosta is a 75 yr old smoker w a hx of metastatic pancreatic cancer with mets to lungs with h/o wipple's procedure in 2000 with mets to lungs in 2014 had chemotherapy which finished in 2016 refused any further chemotherapy in 2019, Chronic left sided hydropneumothorax with chronic pleurx catheter in place from 05/09/20, ESRD started on HD in may 2020, Perm cath placement on 05/27/20, chron ic hypotension, Pulm HTN and recurrent SBOs who presented w n/v and abdominal pain and was found to have pneumoperitoneum, SBO and GI bleed; we were consulted for medical co-management. CT abd/pelvis showed IMPRESSION: Small volume of extraluminal pneumoperitoneum in the anterior right mid abdomen with an adjacent dilated small bowel loops measuring up to 4 cm in diameter with inspissated enteric contents and dilatation of the adjacent bowel loop suggesting a focal small bowel obstruction. No obvious obstructing mass. Distention of the stomach with ingested material, and possible narrowing or stricture at the gastrojejunostomy anastomosis. Small bowel obstruction with perforation Surgical consult Dr Mejia. repeat CT abd and pelvis on 07/18/20 1. Small amount of pneumoperitoneum along the anterior right mid/upper abdomen essentially unchanged and certainly without increase. 2. The underlying small bowel pattern now demonstrates decreased distension suggesting mild progressive resolution to the previously suspected small-bowel obstruction. There is no evidence for acute obstruction and no ascites or drainable collection/abscess. 3. Chronic nonacute findings as noted above. 4. Lung base changes include stable left hydropneumothorax along with mildly increased area of opacity, atelectasis and small pleural reaction at the right lung base. NG tube, zosyn, IVF, NPO stop eliquis Diet As per surgery. GI Bleed with chronic anemia The pt had melena PPI Chemo induced ? ESRD MWF via permacath Nephro consulted. Chronic hypotension Midodrine Pancreatic adenocarcinoma with mets to the lung and chronic left hydropneumothorax. 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 Chronic left hydropneumothorax. CT chest IMPRESSION: Increase in left-sided hydropneumothorax despite the pres ence of catheter. The fluid component has increased significantly, suggesting that the catheter may be occluded or not functioning properly. Stable appearance of multiple right lung cavitary lesions. patient reported that he drained it on 07/16/20 will need draining every other day. CXR stable left hydropneumothorax no worsening than before. Debility / Deconditioning The patient reports being weaker and not being able to walk up the stairs in his house w/o assistance after his recent hospital admission Plan/VTE VTE Prophylaxis Ordered?: Yes VS, I&O, 24H, Fishbone Vital Signs/I&O Vital Signs Date Time Temp Pulse Resp B/P (MAP) Pulse Ox O2 Delivery O2 Flow Rate FiO2 07/19/20 07:23 97.0 83 18 141/65 (90) 96 Room Air 07/17/20 00:23 I&O- Last 24 Hours up to 6 AM 07/19/20 06:00 Intake Total 1785 ml Output Total 1200 ml Balance 585 ml Laboratory Data 24H LABS Laboratory Tests 2 07/19/20 05:40: Immature Granulocyte % (Auto) 2.8, Neutrophils (%) (Auto) 80.8H, Lymphocytes (%) (Auto) 7.6L, Monocytes (%) (Auto) 5.8, Eosinophils (%) (Auto) 2.3, Basophils (%) (Auto) 0.7, Neutrophils # (Auto) 7.0, Lymphocytes # (Auto) 0.7L, Monocytes # (Auto) 0.5, Eosinophils # (Auto) 0.2, Basophils # (Auto) 0.1, Nucleated Red Blood Cells % (auto) 0.0, Anion Gap 9, Glomerular Filtration Rate 27.2L, Calcium Level 7.5L CBC/BMP Laboratory Tests 07/19/20 05:40 HUSSEIN FRANCO MD Jul 19, 2020 10:17
[2020-07-19] MEDS ORDERED: SODIUM CHLORIDE 0.45% 1000 ML IV ONE (11:20)
--- NOTE | 2020-07-19 11:55 | IPNPDOC ---
Text Note Date of Service The patient was seen on 07/19/20. NOTE Pt was seen and examined. No complaints this am. NG output is minimal and clear. Abd pain in the RUQ is still there but improved. Denies nausea, emesis, or fevers. VSSAF NAD abd - soft, ND, slight tenderness RUQ only, no rebound or guarding labs - below A) 75y/o male with RUQ small bowel perforation that is small and contained. P) clamp NG and allow ice chips today. if he tolerates this then possibly add water tomorrow. ambulate Duncan Tellez DO VS,Fishbone, I+O VS, Fishbone, I+O Laboratory Tests 07/19/20 05:40 Vital Signs Date Time Temp Pulse Resp B/P (MAP) Pulse Ox O2 Delivery O2 Flow Rate FiO2 07/19/20 07:23 97.0 83 18 141/65 (90) 96 Room Air 07/17/20 00:23 I&O- Last 24 Hours up to 6 AM 07/19/20 06:00 Intake Total 1785 ml Output Total 1200 ml Balance 585 ml LUIGI TELLEZ DO Jul 19, 2020 11:55
[2020-07-19] MEDS: MORPHINE 4 MG/ML 1ML VIAL/SYRINGE (J2270) IV PRN ×2 (15:30→20:09)
--- NOTE | 2020-07-19 22:52 | IPN ---
NEPHROLOGY PROGRESS NOTE DATE: 07/19/2020 SUBJECTIVE: Patient was seen and examined at the bedside today morning. He is afebrile, hemodynamically stable. He still has NG tube attached to suctioning. He was dialyzed yesterday. He tolerated the hemodialysis procedure well. He reports that his abdominal pain is significantly better. He continues to be on I.V. fluid hydration, however, I.V. fluids have been changed to D5 normal saline because of hypoglycemia this morning. Patient complains of feeling thirsty. He is eating the ice chips. OBJECTIVE: VITAL SIGNS: Temperature 97.6 degrees Fahrenheit, blood pressure 111/60, pulse 73, respiratory rate 18, saturating 92% on room air. INTAKE/OUTPUT: Urine output recorded yesterday as 350 mL. Weight in the bed scale is 75.2 kg. PHYSICAL EXAMINATION: GENERAL: Patient is awake, alert, oriented x3, lying in bed in no apparent distress. HEAD/NECK: Extraocular muscles intact. Pupils equally round and reactive to light. He has an NG tube, which is attached to suctioning. Neck is supple. There is no JVD. CARDIOVASCULAR: S1, S2, regular rate. No edema of the bilateral lower extremities. RESPIRATORY: Chest is clear to auscultation bilaterally. Decreased breath sounds of the left base. ABDOMEN: Soft, positive bowel sounds, nontender. No organomegaly. MUSCULOSKELETAL: No clubbing or cyanosis. Pulses are 2+. 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 Power is 5/5 in all extremities. LAB REVIEW: CBC showed WBC 8.7, hemoglobin 8.5, platelets 240,000. BMP showed sodium 138, potassium 4.1, chloride 105, bicarb 24, BUN 16, creatinine 2.4. CURRENT INPATIENT MEDICATIONS: Patient's medications were all reviewed by myself. His I.V. fluids have been changed to D5 normal saline at 75 cc an hour. Ringer's lactate has been stopped. He continues to be on I.V. Zosyn. No other significant change in the medications today. I gave him a dose of half normal saline bolus 500 mL today morning. ASSESSMENT AND PLAN: 1. End-stage renal disease: Patient was dialyzed yesterday, minimal fluid removal was done because of NG tube and suctioning. Electrolytes are within the acceptable range. 2. Small bowel obstruction: Patient's I.V. fluids have been changed to D5 normal saline. He is still feeling thirsty and looks volume depleted. Half normal saline 500 cc bolus was given. Decision to remove NG tube is as per surgical service. 3. Chronic left-sided pleural effusion: A pleural tap every other day as needed. 4. Anemia and end-stage renal disease: Continue Aranesp with dialysis. 5. Chronic hypotension: Continue Midodrine three times a day.
[2020-07-20] MEDS: PIPERACILLIN/TAZOBACTAM SOD 2.25 GM in D5W MINI-BAG PLUS 50 ML IV SCH ×3 (04:40→20:51)
[2020-07-20 06:00] VITALS: BP 142/80
[2020-07-20 06:21] LABS: BASO # 0.1 10^3/uL (0.0-0.2); BASO % 0.8 % (0.0-1.0); EOS # 0.2 10^3/uL (0.0-0.5); EOS % 2.4 % (0.0-3.0); HEMATOCRIT 29.3 % (42.0-52.0); HEMOGLOBIN 8.8 g/dl (13.5-17.5); LYMPH # 0.7 10^3/uL (1.5-5.0); LYMPH % 7.3 % (24.0-44.0); MEAN CORPUSCULAR HEMOGLOBIN 29.4 pg (27.0-33.0); MONO # 0.6 10^3/uL (0.0-0.8); MONO % 6.7 % (2.0-8.0); NEUTROPHILS # 7.1 10^3/uL (1.5-8.5); NEUTROPHILS % 78.2 % (36.0-66.0); PLATELET COUNT, AUTOMATED 252 10^3/uL (150-450); RED BLOOD COUNT 2.99 10^6/uL (4.30-6.10); WHITE BLOOD COUNT 9.1 10^3/uL (4.0-10.0)
[2020-07-20 06:44] LABS: CALCIUM LEVEL 7.7 MG/DL (8.8-10.2); CREATININE FOR GFR 3.3 MG/DL (0.70-1.30); GLOMERULAR FILTRATION RATE 19.4 (>42); POTASSIUM SERUM 3.9 MEQ/L (3.5-5.1)
[2020-07-20] MEDS: MIDODRINE 5 MG TAB PO SCH ×2 (09:49→14:51)
[2020-07-20] MEDS: PANTOPRAZOLE 40MG VIAL (C9113 PER 1) IV SCH ×2 (09:49→20:50)
[2020-07-20] MEDS: D5W/0.9% SODIUM CHLORIDE 1,000 ML IV SCH ×2 (09:50→17:04)
--- NOTE | 2020-07-20 10:24 | IPNPDOC ---
Text Note Date of Service The patient was seen on 07/20/20. NOTE Pt was seen and examined. No complaints this am. Abd pain in the RUQ is still there and unchanged. Denies nausea, emesis, or fevers. No problems with the NG clamped for last 24 hours. VSSAF NAD abd - soft, ND, slight tenderness RUQ only, no rebound or guarding labs - below A) 75y/o male with RUQ small bowel perforation that is small and contained. P) d/c NG ice and water only PT eval ambulate Duncan Tellez DO VS,Rick, I+O VS, Rick, I+O Laboratory Tests 07/20/20 06:03 Vital Signs Date Time Temp Pulse Resp B/P (MAP) Pulse Ox O2 Delivery O2 Flow Rate FiO2 07/20/20 06:00 97.0 97 18 142/80 (100) 97 Room Air 07/17/20 00:23 I&O- Last 24 Hours up to 6 AM 07/20/20 06:00 Intake Total 862.5 ml Output Total 50 ml Balance 812.5 ml LUIGI TELLEZ DO Jul 20, 2020 10:24
--- NOTE | 2020-07-20 10:42 | IPNPDOC ---
Subjective Date Seen The patient was seen on 07/20/20. Subjective Chief Complaint/HPI NG tube clamped for the past 24 hours. No worsening of abdominal pain , no nausea or vomiting. The right upper quadrant pain remains unchanged. Objective Physical Examination General Exam: Positive: Alert, Cooperative, No Acute Distress Eye Exam: Positive: PERRLA, Conjunctiva & lids normal, EOMI; Negative: Sclera icteric ENT Exam: Positive: Atraumatic, Mucous membr. moist/pink, Pharynx Normal Neck Exam: Positive: Supple; Negative: JVD, thyromegaly Chest Exam: Positive: Clear to auscultation, Normal air movement, Other (permcath on the left and chemoport on the right. ) Heart Exam: Positive: Rate Normal, Regular Rhythm, Normal S1, Normal S2, Murmurs (systolic murmur present); Negative: Rubs Abdomen Exam: Positive: BS Hypoactive, Soft, Tenderness (right upper quadrant and periumbilical area); Negative: Hepatospenomegaly Extremity Exam: Negative: Clubbing, Cyanosis, Edema Psych Exam: Positive: Memory Intact, Oriented x 3 Assessment /Plan Assessment Mr. Acosta is a 75 yr old smoker w a hx of metastatic pancreatic cancer with mets to lungs with h/o wipple's procedure in 2000 with mets to lungs in 2014 had chemotherapy which finished in 2016 refused any further chemotherapy in 2019, Chronic left sided hydropneumothorax with chronic pleurx catheter in place from 05/09/20, ESRD started on HD in may 2020, Perm cath placement on 05/27/20, chronic hypotension, Pulm HTN and recurrent SBOs who presented w n/v and abdominal pain and was found to have pneumoperitoneum, SBO and GI bleed; we were consulted for medical co-management. CT abd/pelvis showed IMPRESSION: Small volume of extraluminal pneumoperitoneum in the anterior right mid abdomen with an adjacent dilated small bowel loops measuring up to 4 cm in diameter with inspissated enteric contents and dilatation of the adjacent bowel loop suggesting a focal small bowel obstruction. No obvious obstructing mass. Distention of the stomach with ingested material, and possible narrowing or stricture at the gastrojejunostomy anastomosis. CT abd and pelvis on 07/18/20 1. Small amount of pneumoperitoneum along the anterior right mid/upper abdomen essentially unchanged and certainly without increase. 2. The underlying small bowel pattern now demonstrates decreased distension suggesting mild progressive resolution to the previously suspected small-bowel obstruction. There is no evidence for acute obstruction and no ascites or drainable collection/abscess. 3. Chronic nonacute findings as noted above. 4. Lung base changes include stable left hydropneumothorax along with mildly increased area of opacity, atelectasis and small pleural reaction at the right lung base. Small bowel obstruction with contained perforation Surgical consult Dr Mejia. Diet As per surgery. On zosyn, ivf. NG tubed dced. GI Bleed with chronic anemia The pt had melena PPI ESRD possible chemo induced. MWF via permacath Nephro consulted. Chronic hypotension Midodrine Pancreatic adenocarcinoma with mets to the lung and chronic left hydropneumothorax. 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 Chronic left hydropneumothorax. CT chest IMPRESSION: Increase in left-sided hydropneumothorax despite the presence of catheter. The fluid component has increased significantly, suggesting that the catheter may be occluded or not functioning properly. Stable appearance of multiple right lung cavitary lesions. patient reported that he drained it on 07/16/20 will need draining every other day. CXR stable left hydropneumothorax no worsening than before. Debility / Deconditioning The patient reports being weaker and not being able to walk up the stairs in his house w/o assistance after his recent hospital admission Plan/VTE VTE Prophylaxis Ordered?: Yes VS, I&O, 24H, Fishbone Vital Signs/I&O Vital Signs Date Time Temp Pulse Resp B/P (MAP) Pulse Ox O2 Delivery O2 Flow Rate FiO2 07/20/20 06:00 97.0 97 18 142/80 (100) 97 Room Air 07/17/20 00:23 I&O- Last 24 Hours up to 6 AM 07/20/20 06:00 Intake Total 862.5 ml Output Total 50 ml Balance 812.5 ml Laboratory Data 24H LABS Laboratory Tests 2 07/19/20 11:07: Bedside Glucose (Misc Panel) 84 07/19/20 16:09: Bedside Glucose (Misc Panel) 86 07/20/20 00:24: Bedside Glucose (Misc Panel) 70L 07/20/20 06:03: Immature Granulocyte % (Auto) 4.6H, Neutrophils (%) (Auto) 78.2H, Lymphocytes (%) (Auto) 7.3L, Monocytes (%) (Auto) 6.7, Eosinophils (%) (Auto) 2.4, Basophils (%) (Auto) 0.8, Neutrophils # (Auto) 7.1, Lymphocytes # (Auto) 0.7L, Monocytes # (Auto) 0.6, Eosinophils # (Auto) 0.2, Basophils # (Auto) 0.1, Nucleated Red Blood Cells % (auto) 0.0, Anion Gap 7L, Glomerular Filtration Rate 19.4L, Calcium Level 7.7L CBC/BMP Laboratory Tests 07/20/20 06:03 HUSSEIN FRANCO MD Jul 20, 2020 10:42
[2020-07-20] MEDS ORDERED: NS 500 ML IV ONE (11:35)
[2020-07-20 14:00] VITALS: BP 128/74
[2020-07-20] MEDS: MORPHINE 4 MG/ML 1ML VIAL/SYRINGE (J2270) IV PRN (14:46)
--- NOTE | 2020-07-20 19:02 | IPN ---
NEPHROLOGY PROGRESS NOTE DATE: 07/20/2020 SUBJECTIVE: Patient was seen and examined at the bedside today morning. His NG tube was been clamped. He is eating ice chips and water sips. He is complaining of feeling thirsty. He continues to be on I.V. fluid hydration. He otherwise denies any active complaints. OBJECTIVE: VITAL SIGNS: Temperature 97.9 degrees Fahrenheit, blood pressure 128/74, pulse 71, respiratory rate 16, saturating 95% on room air. INTAKE/OUTPUT: Chest tube drainage is 200 mL today. Weight in the bed scale is 74 kg. PHYSICAL EXAMINATION: GENERAL: Patient is awake, alert, oriented x3, weak and cachectic, chronically malnourished, lying in bed. HEAD/NECK: Extraocular muscles intact. Pupils equally round and reactive to light. He has bitemporal wasting. Sunken eyes. Neck is supple. He has a tunneled hemodialysis catheter on the left side. CARDIOVASCULAR: S1, S2, regular rate. No edema of the bilateral lower extremities. RESPIRATORY: Mildly decreased breath sounds at the bases. He has left-sided PleurX. ABDOMEN: Soft, positive bowel sounds, nontender. No organomegaly. MUSCULOSKELETAL: No clubbing or cyanosis. Pulses are 2+. EXAMINATION SUPERVISOR: No focal deficit. Power is 5/5 in all extremities. LAB REVIEW: CBC showed WBC 9.1, hemoglobin 8.8, platelets 252,000. BMP showed sodium 138, potassium 3.9, chloride 105, bicarb 26, BUN 21, creatinine 3.3, glucose 85, calcium 7.7. CURRENT INPATIENT MEDICATIONS: Patient's medications were all reviewed by myself. He continues to be on D5 normal saline at 75 cc an hour. I also gave him normal saline 500 mL I.V. bolus. He continues to be on I.V. antibiotics. No other significant change in the medications. ASSESSMENT AND PLAN: 1. End-stage renal disease: Patient will be dialyzed tomorrow morning according to his schedule. Minimal ultrafiltration will be done because of no oral intake secondary to small bowel obstruction. 2. Small bowel perforation: Patient was n.p.o. with NG tube to suctioning as per surgical service. NGT is being removed now. He is only on ice and water. Continue I.V. fluid hydration. 3. Hypotension: Continue current dose of Midodrine 5 mg p.o. three times a day and 500 cc of normal saline bolus is being given. 4. Anemia and end-stage renal disease: Continue current dose of Aranesp with dialysis once a week.
[2020-07-20 22:00] VITALS: BP 132/74
[2020-07-21] MEDS: PIPERACILLIN/TAZOBACTAM SOD 2.25 GM in D5W MINI-BAG PLUS 50 ML IV SCH ×3 (04:38→20:32)
[2020-07-21 06:00] VITALS: BP 121/71
[2020-07-21] MEDS: D5W/0.9% SODIUM CHLORIDE 1,000 ML IV SCH ×2 (06:16→15:18)
[2020-07-21] MEDS: PANTOPRAZOLE 40MG VIAL (C9113 PER 1) IV SCH ×2 (06:19→20:32)
[2020-07-21] MEDS: SODIUM CHLORIDE 0.9% INJ 10 ML SYR IV SCH (06:20)
[2020-07-21 06:40] LABS: HEMATOCRIT 28.8 % (42.0-52.0); HEMOGLOBIN 8.7 g/dl (13.5-17.5); MEAN CORPUSCULAR HEMOGLOBIN 29.7 pg (27.0-33.0); MEAN CORPUSCULAR HGB CONC 30.2 g/dl (32.0-36.5); MEAN CORPUSCULAR VOLUME 98.3 fl (80.0-96.0); PLATELET COUNT, AUTOMATED 238 10^3/uL (150-450); RED BLOOD COUNT 2.93 10^6/uL (4.30-6.10); WHITE BLOOD COUNT 7.8 10^3/uL (4.0-10.0)
[2020-07-21 07:08] LABS: CALCIUM LEVEL 7.5 MG/DL (8.8-10.2); CREATININE FOR GFR 3.59 MG/DL (0.70-1.30); GLOMERULAR FILTRATION RATE 17.6 (>42); POTASSIUM SERUM 3.9 MEQ/L (3.5-5.1)
[2020-07-21 07:20] LABS: EOSINOPHILS 3 % (0-3); LYMPHOCYTES 8 % (16-44); MONOCYTES 3 % (0-5); MYELOCYTES 1 % (0-0); NEUTROPHILS 85 % (28-66)
[2020-07-21 07:21] LABS: ANISOCYTOSIS 1+; PLATELET ESTIMATE NORMAL (NORMAL)
[2020-07-21] MEDS: MIDODRINE 5 MG TAB PO SCH ×2 (08:23→15:18)
--- NOTE | 2020-07-21 09:51 | IPNPDOC ---
Subjective Date Seen The patient was seen on 07/21/20. Subjective Chief Complaint/HPI has tolerated sips of water and ice chips. He was able to drink 2 cups of water since yesterday. Says that when he was trying to drink more his abdominal pain worsened. Pain still localized at the right upper quadrant and the right periumbilical region. No bowel movement. Have not noticed any flatus. Did nto have nausea or vomiting. Plerex cath was drained yesterday. Objective Physical Examination General Exam: Positive: Alert, Cooperative, No Acute Distress Eye Exam: Positive: PERRLA, Conjunctiva & lids normal, EOMI; Negative: Sclera icteric ENT Exam: Positive: Atraumatic, Mucous membr. moist/pink, Pharynx Normal Neck Exam: Positive: Supple; Negative: JVD, thyromegaly Chest Exam: Positive: Clear to auscultation, Normal air movement, Other (permcath on the left and chemoport on the right. ) Heart Exam: Positive: Rate Normal, Regular Rhythm, Normal S1, Normal S2, Murmurs (systolic murmur present); Negative: Rubs Abdomen Exam: Positive: BS Hypoactive, Soft, Tenderness (right upper quadrant and periumbilical area); Negative: Normal bowel sounds, Hepatospenomegaly Extremity Exam: Negative: Clubbing, Cyanosis, Edema Psych Exam: Positive: Memory Intact, Oriented x 3 Assessment /Plan Assessment Mr. Acosta is a 75 yr old smoker w a hx of metastatic pancreatic cancer with mets to lungs with h/o wipple's procedure in 2000 with mets to lungs in 2014 had chemotherapy which finished in 2016 refused any further chemotherapy in 2019, Chronic left sided hydropneumothorax with chronic pleurx catheter in place from 05/09/20, ESRD started on HD in may 2020, Perm cath placement on 05/27/20, chronic hypotension, Pulm HTN and recurrent SBOs who presented w n/v and abdominal pain and was found to have pneumoperitoneum, SBO and GI bleed; we were consulted for medical co-management. CT abd/pelvis showed IMPRESSION: Small volume of extraluminal pneumoperitoneum in the anterior right mid abdomen with an adjacent dilated small bowel loops measuring up to 4 cm in diameter with inspissated enteric contents and dilatation of the adjacent bowel loop suggesting a focal small bowel obstruction. No obvious obstructing mass. Distention of the stomach with ingested material, and possible narrowing or stricture at the gastrojejunostomy anastomosis. CT abd and pelvis on 07/18/20 1. Small amount of pneumoperitoneum along the anterior right mid/upper abdomen essentially unchanged and certainly without increase. 2. The underlying small bowel pattern now demonstrates decreased distension suggesting mild progressive resolution to the previously suspected small-bowel obstruction. There is no evidence for acute obstruction and no ascites or drainable collection/abscess. 3. Chronic nonacute findings as noted above. 4. Lung base changes include stable left hydropneumothorax along with mildly increased area of opacity, atelectasis and small pleural reaction at the right lung base. Small bowel obstruction with contained perforation Surgical consult Dr Mejia. Diet As per surgery. On zosyn, ivf to continues. GI Bleed with chronic anemia The pt had melena PPI ESRD possible chemo induced. MWF via permacath Nephro consulted. Chronic hypotension Midodrine Pancreatic adenocarcinoma with mets to the lung and chronic left hydropneumothorax. 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 Chronic left hydropneumothorax. CT chest IMPRESSION: Increase in left-sided hydropneumothorax despite the presence of catheter. The fluid component has increased significantly, sugges ting that the catheter may be occluded or not functioning properly. Stable appearance of multiple right lung cavitary lesions. patient reported that he drained it on 07/16/20 will need draining every other day. CXR stable left hydropneumothorax no worsening than before. Debility / Deconditioning The patient reports being weaker and not being able to walk up the stairs in his house w/o assistance after his recent hospital admission Plan/VTE VTE Prophylaxis Ordered?: Yes VS, I&O, 24H, Fishbone Vital Signs/I&O Vital Signs Date Time Temp Pulse Resp B/P (MAP) Pulse Ox O2 Delivery O2 Flow Rate FiO2 3/22/21 06:00 97.8 77 18 121/71 (88) 95 Room Air 07/17/20 00:23 I&O- Last 24 Hours up to 6 AM 07/21/20 06:00 Intake Total 1594 ml Output Total 400 ml Balance 1194 ml Laboratory Data 24H LABS Laboratory Tests 2 07/20/20 11:18: Bedside Glucose (Misc Panel) 80L 07/20/20 17:57: Bedside Glucose (Misc Panel) 76L 07/21/20 00:43: Bedside Glucose (Misc Panel) 88 07/21/20 06:24: Immature Granulocyte % (Auto) , Neutrophils (%) (Auto) , Nucleated Red Blood Cells % (auto) 0.3H, Neutrophils 85H, Lymphocytes (Manual) 8L, Monocytes (Manual) 3, Eosinophils (Manual) 3, Myelocytes 1H, Anisocytosis 1+, Macrocytosis 1+, Platelet Estimate NORMAL, Anion Gap 7L, Glomerular Filtration Rate 17.6L, Calcium Level 7.5L CBC/BMP Laboratory Tests 07/21/20 06:24 HUSSEIN FRANCO MD Jul 21, 2020 09:51
--- NOTE | 2020-07-21 09:59 | IPNPDOC ---
Text Note Date of Service The patient was seen on 07/21/20. NOTE Gen. surgery. Dr Mejia The patient is a 75-year-old male with several underlying medical conditions and history of Whipple procedure for pancreatic cancer approximately 20 years ago. He developed upper abdominal discomfort and was admitted 07/17/20 with bowel perforation. Pt was seen and examined. Reports abdominal pain predominantly in the right upper quadrant, about the same as yesterday. Denies nausea or vomiting. NG tube was removed 07/01/19, currently ice and water only. Oral intake was only 120 yesterday. Afebrile. VSS General. Awake and alert lying in bed. abd - soft, ND, mild tenderness with palpation in the right upper quadrant, no rebound, guarding, grimacing Extremities. No edema. I/O 1132/450 +682 No leukocytosis. Hemoglobin 8.7, stable Platelets 238 Assessment/plan 75y/o male with RUQ small bowel perforation that is small and contained. NG tube was discontinued 07/20 Currently ice and water only, but only documented to have 120 mL by mouth yest erday. The patient is still reporting some right upper quadrant abdominal discomfort. Patient is reviewed with Dr. Gonzalez, plan for upper GI with small bowel follow-through to reevaluate. Further recommendations as per Dr. Mejia pending results. Monitor. VS,Fishbone, I+O VS, Fishbone, I+O Laboratory Tests 07/21/20 06:24 Vital Signs Date Time Temp Pulse Resp B/P (MAP) Pulse Ox O2 Delivery O2 Flow Rate FiO2 07/21/20 06:00 97.8 77 18 121/71 (88) 95 Room Air 07/17/20 00:23 I&O- Last 24 Hours up to 6 AM 07/21/20 06:00 Intake Total 1594 ml Output Total 400 ml Balance 1194 ml Attending Note Attending Note Agree with note per JESSICA Rayo. I saw patient later in day. No sig change in abdomen since I saw him Tuesday. Abdomen full with some mild tenderness in RUQ. Has been doing SBFT but contrast mostly pooled in stomach with dilated small bow el loops noted. Report pending. Labs today with WBC 8. 85 segs. Haven't checked Protein/Albumin lately. Recs: Will check CPA 07/22/20. I believe patient needs IV nutrition. Will try to schedule laparoscopic surgery next few days. Chrissy oBrden Jul 21, 2020 09:59 Ricky Mejia Jul 21, 2020 20:19
[2020-07-21] MEDS ORDERED: ISOVUE-300 61% 50ML VIAL As Ordered ONE (10:54)
[2020-07-21 15:00] VITALS: BP 134/76
[2020-07-21] MEDS: MORPHINE 4 MG/ML 1ML VIAL/SYRINGE (J2270) IV PRN (15:17)
--- NOTE | 2020-07-21 18:07 | IPN ---
NEPHROLOGY PROGRESS NOTE DATE: 07/21/2020 SUBJECTIVE: The patient is seen and examined this morning at the bedside. He complains of mild tenderness to palpation in the right upper quadrant. Denies nausea or vomiting. Reports minimal oral intake. Continues on IV fluids. Dialysis is being postponed until tomorrow because scheduling issues in the hemodialysis unit. OBJECTIVE: VITAL SIGNS: Temperature 97.4, pulse 100, respiratory rate 18, blood pressure 134/76, saturating 95% on room air. INTAKE AND OUTPUT: Intake yesterday was 1.1 liters of which only 100 mL was oral. Remainder was IV. Weight in the bed scale today is 74 kg. PHYSICAL EXAMINATION: GENERAL APPEARANCE: The patient is seen awake, alert, oriented. Elderly male in no apparent distress. HEENT: The extraocular muscles are intact. Tongue is moist. NECK: Supple. Jugular veins are not elevated. HEART: Regular, S1, S2. There is a systolic murmur. LUNGS: Clear to auscultation. There is a permacath on the left and a chemo port on the right. ABDOMEN: Soft and tender to palpation in the right upper quadrant. EXTREMITIES: Negative for clubbing, cyanosis, or edema. NEUROLOGICAL: Awake, alert and oriented x3. LABORATORY STUDIES: Today's laboratory studies show white count 7.8, hemoglobin 8.7, sodium 140, potassium 3.9. CURRENT INPATIENT MEDICATIONS: He is on D5 normal saline at 40 mL an hour. His remainder of medications are all unchanged as compared to yesterday. PROBLEMS: 1. End-stage renal disease on hemodialysis - The patient is on a Tuesday, Tuesday, Tuesday schedule. However, because of scheduling issues in the Dialysis Unit, he will not be dialyzed today and rather will be dialyzed on Tuesday, July 22. He is presently having very poor oral intake and only on ice water and having minimal intake and is on low rate IV fluids. His electrolytes and volume status are acceptable. 2. Chronic hypotension - continue with Midodrine. 3. Small-bowel obstruction with contained perforation he is followed by Dr. Mejia and diet is as per Surgery. He is on a low rate of IV fluids. His oral intake is minimal - ice & water. He is also on renally dosed Zosyn. 4. Anemia related to chronic renal failure he continues on Aranesp and hemoglobin is stable but suboptimal at 8.7. I would transfuse for hemoglobin less than 8. MTDD
[2020-07-21 22:00] VITALS: BP 122/68
[2020-07-22] MEDS: PIPERACILLIN/TAZOBACTAM SOD 2.25 GM in D5W MINI-BAG PLUS 50 ML IV SCH ×3 (04:44→22:09)
[2020-07-22] MEDS: PANTOPRAZOLE 40MG VIAL (C9113 PER 1) IV SCH ×2 (05:41→22:10)
[2020-07-22] MEDS: ONDANSETRON 4MG/2ML VIAL IV PRN ×2 (05:41→13:16)
[2020-07-22] MEDS: SODIUM CHLORIDE 0.9% INJ 10 ML SYR IV SCH (05:42)
[2020-07-22 06:00] VITALS: BP 132/76
[2020-07-22 06:15] LABS: BASO # 0.1 10^3/uL (0.0-0.2); BASO % 0.7 % (0.0-1.0); EOS # 0.1 10^3/uL (0.0-0.5); EOS % 0.7 % (0.0-3.0); HEMATOCRIT 31.3 % (42.0-52.0); HEMOGLOBIN 9.4 g/dl (13.5-17.5); LYMPH # 0.6 10^3/uL (1.5-5.0); LYMPH % 5.5 % (24.0-44.0); MEAN CORPUSCULAR HEMOGLOBIN 29.3 pg (27.0-33.0); MEAN CORPUSCULAR VOLUME 97.5 fl (80.0-96.0); MONO # 0.5 10^3/uL (0.0-0.8); MONO % 4.7 % (2.0-8.0); NEUTROPHILS # 8.8 10^3/uL (1.5-8.5); NEUTROPHILS % 84.9 % (36.0-66.0); PLATELET COUNT, AUTOMATED 273 10^3/uL (150-450); RED BLOOD COUNT 3.21 10^6/uL (4.30-6.10); WHITE BLOOD COUNT 10.4 10^3/uL (4.0-10.0)
[2020-07-22 06:35] LABS: ALBUMIN 1.7 GM/DL (3.2-5.2); ALT/SGPT < 6 U/L (12-78); BILIRUBIN,TOTAL 0.3 MG/DL (0.2-1.0); BLOOD UREA NITROGEN 22 MG/DL (7-18); CALCIUM LEVEL 8.2 MG/DL (8.8-10.2); CARBON DIOXIDE LEVEL 22 MEQ/L (21-32); CHLORIDE LEVEL 107 MEQ/L (98-107); CREATININE FOR GFR 4.11 MG/DL (0.70-1.30); GLOMERULAR FILTRATION RATE 15.1 (>42); GLUCOSE, FASTING 100 MG/DL (70-100); POTASSIUM SERUM 3.9 MEQ/L (3.5-5.1); SODIUM LEVEL 139 MEQ/L (136-145); TOTAL PROTEIN 5.6 GM/DL (6.4-8.2)
[2020-07-22] MEDS: MIDODRINE 5 MG TAB PO SCH ×2 (09:07→13:09)
--- NOTE | 2020-07-22 09:24 | IPNPDOC ---
Text Note Date of Service The patient was seen on 07/22/20. NOTE Gen. surgery. Dr Mejia The patient is a 75-year-old male with several underlying medical conditions and history of Whipple procedure for pancreatic cancer approximately 20 years ago. He developed upper abdominal discomfort and was admitted 07/17/20 with bowel perforation. Pt reports nausea and vomiting this am. Reports persistent abdominal pain predominantly in the right upper quadrant, states the same this AM. Afebrile. VSS. 95% room air. General. Awake and alert lying in bed. abd - mildly distended but still soft, tenderness with palpation in the right upper quadrant, no rebound, guarding. Extremities. No edema. WBC 10.4, hemoglobin 9.4, platelets 273. Total protein 5.6, albumin 1.7. Upper GI with small bowel follow through 07/21/20 report pending. Images were reviewed by Dr. Mejia, contrast mostly pooled in the stomach with dilated small bowel loops noted. Assessment/plan 75y/o male with RUQ small bowel perforation. Upper GI with small bowel follow-through 07/21/20, report is pending. Images were reviewed by Dr. Mejia, Contrast mostly pooled in the stomach with dilated small bowel loops noted. Reviewed this morning with Dr. Mejia. Reinsert NG tube, LIS. Labs this morning indicated total protein 5.6 with albumin 1.7. Would recommend addition of TPN, discussed with the Hospitalist who will order. Dr Mejia planning to arrange laparoscopic surgery in the next few days. VS,Fishbone, I+O VS, Fishbone, I+O Laboratory Tests 07/22/20 05:50 Vital Signs Date Time Temp Pulse Resp B/P (MAP) Pulse Ox O2 Delivery O2 Flow Rate FiO2 07/22/20 06:00 97.6 86 18 132/76 (94) 95 Room Air 07/17/20 00:23 I&O- Last 24 Hours up to 6 AM 07/22/20 05:59 Intake Total 1362 ml Output Total 0 ml Balance 1362 ml Attending Note Attending Note SBFT shows persistently dilated SB loops with much of contrast still in stomach this am. Clinical picture consistent with SBO. Has now been NPO or with poor diet for > 1wk. TPN appropriate at this point. Will plan surgery when schedule allows. Likely to be difficult give prior Whipple but will plan laparoscopic approach. Chrissy Borden Jul 22, 2020 09:17 Ricky Mejia Jul 22, 2020 19:48
--- NOTE | 2020-07-22 11:12 | IPNPDOC ---
Subjective Date Seen The patient was seen on 07/22/20. Subjective Chief Complaint/HPI Had nausea and vomiting this morning. Right upper quadrant pain remains the same. going for HD today. Objective Physical Examination General Exam: Positive: Alert, Cooperative, No Acute Distress Eye Exam: Positive: PERRLA, Conjunctiva & lids normal, EOMI; Negative: Sclera icteric ENT Exam: Positive: Atraumatic, Mucous membr. moist/pink, Pharynx Normal Neck Exam: Positive: Supple; Negative: JVD, thyromegaly Chest Exam: Positive: Clear to auscultation, Normal air movement, Other (permcath on the left and chemoport on the right. ) Heart Exam: Positive: Rate Normal, Regular Rhythm, Normal S1, Normal S2, Murmurs (systolic murmur present); Negative: Rubs Abdomen Exam: Positive: BS Hypoactive, Soft, Tenderness (right upper quadrant and periumbilical area); Negative: Normal bowel sounds, Hepatospenomegaly Extremity Exam: Negative: Clubbing, Cyanosis, Edema Psych Exam: Positive: Memory Intact, Oriented x 3 Assessment /Plan Assessment Mr. Acosta is a 75 yr old smoker w a hx of metastatic pancreatic cancer with mets to lungs with h/o wipple's procedure in 2000 with mets to lungs in 2014 had chemotherapy which finished in 2016 refused any further chemotherapy in 2019, Chronic left sided hydropneumothorax with chronic pleurx catheter in place from 05/09/20, ESRD started on HD in may 2020, Perm cath placement on 05/27/20, chronic hypotension, Pulmonary HTN and recurrent SBOs who presented w n/v and abdominal pain and was found to have pneumoperitoneum, high up SBO and GI bleed. CT abd/pelvis showed 07/16/20 IMPRESSION: Small volume of extraluminal pneumoperitoneum in the anterior right mid abdomen with an adjacent dilated small bowel loops measuring up to 4 cm in diameter with inspissated enteric contents and dilatation of the adjacent bowel loop suggesting a focal small bowel obstruction. No obvious obstructing mass. Distention of the stomach with ingested material, and possible narrowing or stricture at the gastrojejunostomy anastomosis. CT abd and pelvis on 07/18/20 1. Small amount of pneumoperitoneum along the anterior right mid/upper abdomen essentially unchanged and certainly without increase. 2. The underlying small bowel pattern now demonstrates decreased distension suggesting mild progressive resolution to the previously suspected small-bowel obstruction. There is no evidence for acute obstruction and no ascites or drainable collection/abscess. 3. Chronic nonacute findings as noted above. 4. Lung base changes include stable left hydropneumothorax along with mildly increased area of opacity, atelectasis and small pleural reaction at the right lung base. Persistent Small bowel obstruction with contained perforation Surgical consult Dr Mejia. Upper GI series Images were reviewed by Dr. Mejia, Contrast mostly pooled in the stomach with dilated small bowel loops noted. On zosyn, NPO, NG tube Albumin dropping starting on TPN GI Bleed with chronic anemia The pt had melena likely due to the obstruction with perforation hb stable. continue PPI ESRD possible chemo induced. MWF via permacath Nephro consulted. Chronic hypotension Midodrine Pancreatic adenocarcinoma with mets to the lung and chronic left hydropneumothor ax. 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 Chronic left hydropneumothorax. CT chest IMPRESSION: Increase in left-sided hydropneumothorax despite the presence of catheter. The fluid component has increased significantly, suggesting that the catheter may be occluded or not functioning properly. Stable appearance of multiple right lung cavitary lesions. patient reported that he drained it on 07/16/20 will need draining every other day. CXR stable left hydropneumothorax no worsening than before. Debility / Deconditioning The patient reports being weaker and not being able to walk up the stairs in his house w/o assistance after his recent hospital admission PT/OT Plan/VTE VTE Prophylaxis Ordered?: Yes VS, I&O, 24H, Fishbone Vital Signs/I&O Vital Signs Date Time Temp Pulse Resp B/P (MAP) Pulse Ox O2 Delivery O2 Flow Rate FiO2 07/22/20 06:00 97.6 86 18 132/76 (94) 95 Room Air 07/17/20 00:23 I&O- Last 24 Hours up to 6 AM 07/22/20 06:00 Intake Total 900 ml Output Total 0 ml Balance 900 ml Laboratory Data 24H LABS Laboratory Tests 2 07/21/20 17:05: Bedside Glucose (Misc Panel) 103 07/22/20 00:16: Bedside Glucose (Misc Panel) 82L 07/22/20 05:50: Immature Granulocyte % (Auto) 3.5H, Neutrophils (%) (Auto) 84.9H, Lymphocytes (%) (Auto) 5.5L, Monocytes (%) (Auto) 4.7, Eosinophils (%) (Auto) 0.7, Basophils (%) (Auto) 0.7, Neutrophils # (Auto) 8.8H, Lymphocytes # (Auto) 0.6L, Monocytes # (Auto) 0.5, Eosinophils # (Auto) 0.1, Basophils # (Auto) 0.1, Nucleated Red Blood Cells % (auto) 0.0, Anion Gap 10, Glomerular Filtration Rate 15.1L, Calcium Level 8.2L, Total Bilirubin 0.3, Aspartate Amino Transf (AST/SGOT) 8, Alanine Aminotransferase (ALT/SGPT) < 6L, Alkaline Phosphatase 72, Total Protein 5.6L, Albumin 1.7L, Albumin/Globulin Ratio 0.4 CBC/BMP Laboratory Tests 07/22/20 05:50 HUSSEIN FRANCO MD Jul 22, 2020 11:12
[2020-07-22] MEDS: D5W/0.9% SODIUM CHLORIDE 1,000 ML IV SCH (12:42)
[2020-07-22] MEDS: MORPHINE 4 MG/ML 1ML VIAL/SYRINGE (J2270) IV PRN (13:17)
[2020-07-22 14:00] VITALS: BP 102/68
--- NOTE | 2020-07-22 16:21 | IPN ---
PROGRESS NOTE DATE: 07/22/2020 SUBJECTIVE: Mr. Acosta was seen and examined this morning in the hemodialysis unit. He is in poor spirits. He is frustrated. Nursing staff had trouble with nasogastric (NG) tube placement. Patient remains nothing by mouth. He is tolerating his dialysis treatment without any issues, and there is a plan to start total parenteral nutrition (TPN). VITAL SIGNS: Temperature 97.6, pulse 86, respiratory rate 18, blood pressure 132/76, saturating 95% on room air. Intake yesterday was 1360. It was all intravenous (IV) fluid. The patient had no oral intake. Weight in the bed scale today is 73.6 kg. GENERAL: Patient is seen awake, alert in the hemodialysis unit receiving his treatment. Appears depressed but in no acute distress. Extraocular muscles are intact. Tongue is dry. Neck is supple. Jugular veins are not elevated. There is a tunneled hemodialysis catheter in the left chest wall, which is presently in use. HEART: Sounds are regular, S1, S2. There is no leg edema. There is no dependent edema. LUNGS: Clear to auscultation. He has a dressing at the left base, which was not examined today. ABDOMEN: Soft and minimally tender to palpation on the right. EXTREMITIES: Negative for clubbing, cyanosis or edema. NEUROLOGIC: He is awake, alert, and oriented times three. PSYCHIATRIC: He is depressed. LABORATORY STUDIES: Reveals white count 10.4, hemoglobin 9.4, platelets 273. Sodium 139, potassium 3.9, bicarbonate 22, BUN 22, albumin 1.7. INPATIENT MEDICATIONS: His D5 normal saline (NS) at 40 mL an hour was discontinued. Primary service has written orders for TPN with fat emulsion. His remainder of medications is all unchanged as compared to yesterday. PROBLEMS: 1. End-stage renal disease. Patient is dialyzed today. He is off of his usual schedule because of scheduling issues in the dialysis unit. His next dialysis will be on July 24. He is nothing by mouth at this time and has significant protein-calorie malnutrition, and he is being switched over to TPN. His electrolytes and volume status are acceptable. 2. Chronic hypotension. Continue with midodrine. He has minimal fluid removed with dialysis. 3. Small-bowel obstruction with contained perforation. He is followed by surgical services. He is nothing by mouth. They had trouble putting in an NG tube. He has been on low-rate IV fluids these past few days, and he is now being switched over to TPN. He is also on renally dosed Zosyn. 4. Anemia related to chronic renal failure. He continues on Aranesp, and hemoglobin has come up to 9.4 on the latest labs. 5. Hypoalbuminemia and protein-calorie malnutrition. Patient has been nothing by mouth for several days now, and I agree with starting him on TPN at this point. We will have to keep the rate on the low side given his end-stage renal failure. Orders were discussed with Dr. Reaves.
[2020-07-22] MEDS: HumaLOG INSULIN (NovoLOG) PER UNIT SC SCH (17:55)
[2020-07-22] MEDS ORDERED: FAT EMULSION IV 20% 500 ML IV SCH (18:00)
[2020-07-22] MEDS ORDERED: AMINO AC/ELECTROLYTE/DEX/CALC 2,000 ML IV SCH (18:00)
--- NOTE | 2020-07-22 18:17 | REP ---
INDICATION: with SBFT,Bowel perforation. H/O Whipple procedure. COMPARISON: None TECHNIQUE: This procedure was performed by Amy Gallo [facility], under the direct supervision of Dr. Cabrera. Images were reviewed with Dr. Cabrera prior to dictation. Approximately 125 mL of Isovue 300 was administered orally in an attempt to perform an upper GI and small-bowel follow-through examination. FINDINGS: The electric scoop operator film shows no organomegaly or pathological masses. The intestinal gas pattern is unremarkable. There are multiple surgical gloria in the right upper quadrant as well as midline. This examination was extremely limited, the patient is immobile, and is unable to ingest the recommended amount of contrast. The oral and pharyngeal stages of deglutition were unremarkable. Esophageal transport is prompt and efficient and there is no evidence of esophagitis, stricture, or mucosal ring. However tertiary contractions were visualized. There is no evidence of a hiatal hernia. Gastroesophageal reflux was visualized to the level of the thoracic inlet. Visualization of the stomach and small bowel is extremely limited. The patient was unable to ingest a sufficient amount of contrast for the study. After 1100 minutes a majority of the contrast still remained within the fundus of the stomach. A small amount of contrast did proceed into the small bowel, but became diluted by bowel contents and cannot be visualized on delayed images. There is persistent moderately dilated small bowel loops in the right abdomen again suggesting some degree of small bowel obstruction. IMPRESSION: 1. Tertiary contractions. 2. Gastroesophageal reflux to the level of the thoracic inlet. 3. This examination was extremely limited, the patient is immobile, and is unable to ingest the recommended amount of contrast. Inadequate evaluation for the evaluation of bowel perforation. Moderately dilated small bowel loops in the right abdomen, again suggesting some degree of small bowel obstruction. 0.2 minutes of fluoroscopy time was utilized for this procedure. Some fluoroscopic images are performed with last image hold technology. These images require no additional radiation. <Electronically signed by Amy Gallo > 07/22/20 [id number] <Electronically signed by Garo Cabrera > 07/22/20 [id number]
[2020-07-22 22:00] VITALS: BP 117/72
[2020-07-23] MEDS: HumaLOG INSULIN (NovoLOG) PER UNIT SC SCH ×4 (00:17→18:40)
[2020-07-23] MEDS: PIPERACILLIN/TAZOBACTAM SOD 2.25 GM in D5W MINI-BAG PLUS 50 ML IV SCH ×3 (04:30→20:20)
[2020-07-23] MEDS: ONDANSETRON 4MG/2ML VIAL IV PRN ×2 (04:30→20:19)
[2020-07-23 06:00] VITALS: BP 141/65
[2020-07-23 07:05] LABS: BASO # 0.1 10^3/uL (0.0-0.2); BASO % 0.6 % (0.0-1.0); EOS # 0.1 10^3/uL (0.0-0.5); EOS % 1.3 % (0.0-3.0); HEMATOCRIT 29.4 % (42.0-52.0); HEMOGLOBIN 8.9 g/dl (13.5-17.5); LYMPH # 0.5 10^3/uL (1.5-5.0); LYMPH % 5.6 % (24.0-44.0); MEAN CORPUSCULAR HEMOGLOBIN 29.5 pg (27.0-33.0); MEAN CORPUSCULAR HGB CONC 30.3 g/dl (32.0-36.5); MEAN CORPUSCULAR VOLUME 97.4 fl (80.0-96.0); MONO # 0.5 10^3/uL (0.0-0.8); MONO % 5.1 % (2.0-8.0); NEUTROPHILS # 8.2 10^3/uL (1.5-8.5); NEUTROPHILS % 84.6 % (36.0-66.0); PLATELET COUNT, AUTOMATED 265 10^3/uL (150-450); RED BLOOD COUNT 3.02 10^6/uL (4.30-6.10); WHITE BLOOD COUNT 9.7 10^3/uL (4.0-10.0)
[2020-07-23 07:24] LABS: CALCIUM LEVEL 8.1 MG/DL (8.8-10.2); CREATININE FOR GFR 3.46 MG/DL (0.70-1.30); GLOMERULAR FILTRATION RATE 18.4 (>42); POTASSIUM SERUM 3.5 MEQ/L (3.5-5.1)
[2020-07-23 07:30] VITALS: BP 134/62
[2020-07-23] MEDS ORDERED: LIDOCAINE 1% MDV 20ML VIAL As Ordered ONE (10:33)
[2020-07-23] MEDS: SODIUM CHLORIDE 0.9% INJ 10 ML SYR IV SCH ×2 (10:44→18:40)
[2020-07-23] MEDS: MIDODRINE 5 MG TAB PO SCH ×2 (10:49→13:17)
--- NOTE | 2020-07-23 11:18 | IPNPDOC ---
Subjective Date Seen The patient was seen on 07/23/20. Subjective Chief Complaint/HPI Complains of nausea, feeling very tired. Patient not very conversant. he did complain of being poked several times to get an IV. Continues to have right upper quadrant abdominal pain and nausea. Objective Physical Examination General Exam: Positive: Alert, Cooperative, No Acute Distress Eye Exam: Positive: PERRLA, Conjunctiva & lids normal, EOMI; Negative: Sclera icteric ENT Exam: Positive: Atraumatic, Mucous membr. moist/pink, Pharynx Normal Neck Exam: Positive: Supple; Negative: JVD, thyromegaly Chest Exam: Positive: Clear to auscultation, Normal air movement, Other (permcath on the left and chemoport on the right. ) Heart Exam: Positive: Rate Normal, Regular Rhythm, Normal S1, Normal S2, Murmurs (systolic murmur present); Negative: Rubs Abdomen Exam: Positive: BS Hypoactive, Soft, Tenderness (right upper quadrant and periumbilical area); Negative: Normal bowel sounds, Hepatospenomegaly Extremity Exam: Negative: Clubbing, Cyanosis, Edema Psych Exam: Positive: Memory Intact, Oriented x 3 Assessment /Plan Assessment Mr. Acosta is a 75 yr old smoker w a hx of metastatic pancreatic cancer with mets to lungs with h/o wipple's procedure in 2000 with mets to lungs in 2014 had chemotherapy which finished in 2016 refused any further chemotherapy in 2019, Chronic left sided hydropneumothorax with chronic pleurx catheter in place from 05/09/20, ESRD started on HD in may 2020, Perm cath placement on 05/27/20, chronic hypotension, Pulmonary HTN and recurrent SBOs who presented w n/v and abdominal pain and was found to have pneumoperitoneum, high up SBO and GI bleed. CT abd/pelvis showed 07/16/20 IMPRESSION: Small volume of extraluminal pneumoperitoneum in the anterior right mid abdomen with an adjacent dilated small bowel loops measuring up to 4 cm in diameter with inspissated enteric contents and dilatation of the adjacent bowel loop suggesting a focal small bowel obstruction. No obvious obstructing mass. Distention of the stomach with ingested material, and possible narrowing or stricture at the gastrojejunostomy anastomosis. CT abd and pelvis on 07/18/20 1. Small amount of pneumoperitoneum along the anterior right mid/upper abdomen essentially unchanged and certainly without increase. 2. The underlying small bowel pattern now demonstrates decreased distension suggesting mild progressive resolution to the previously suspected small-bowel obstruction. There is no evidence for acute obstruction and no ascites or drainable collection/abscess. 3. Chronic nonacute findings as noted above. 4. Lung base changes include stable left hydropneumothorax along with mildly increased area of opacity, atelectasis and small pleural reaction at the right lung base. Persistent Small bowel obstruction with contained perforation Surgical consult Dr Mejia. Upper GI series Images were reviewed by Dr. Mejia, Contrast mostly pooled in the stomach with dilated small bowel loops noted. On zosyn, NPO, NG tube Albumin dropping started on TPN Planned for OR GI Bleed with chronic anemia The pt had melena likely due to the perforation hb stable. continue PPI ESRD possible chemo induced. MWF via permacath Nephro consulted. Chronic hypotension Midodrine Pancreatic adenocarcinoma with mets to the lung and chronic left hydropneumothorax. 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 Chronic left hydropneumothorax. CT chest IMPRESSION: Increase in left-sided hydropneumothorax despite the presence of catheter. The fluid component has increased significantly, suggesting that the catheter may be occluded or not functioning properly. Stable appearance of multiple right lung cavitary lesions. patient reported that he drained it on 07/16/20 will need draining every other day. CXR stable left hydropneumothorax no worsening than before. Debility / Deconditioning The patient reports being weaker and not being able to walk up the stairs in his house w/o assistance after his recent hospital admission PT/OT Plan/VTE VTE Prophylaxis Ordered?: Yes VS, I&O, 24H, Fishbone Vital Signs/I&O Vital Signs Date Time Temp Pulse Resp B/P (MAP) Pulse Ox O2 Delivery O2 Flow Rate FiO2 07/23/20 09:51 97.9 07/23/20 07:30 62 20 134/62 (86) 90 Room Air 07/17/20 00:23 I&O- Last 24 Hours up to 6 AM 07/23/20 05:59 Intake Total 1010 ml Output Total 850 ml Balance 160 ml Laboratory Data 24H LABS Laboratory Tests 2 07/22/20 12:14: Bedside Glucose (Misc Panel) 87 07/22/20 17:20: Bedside Glucose (Misc Panel) 99 07/23/20 00:02: Bedside Glucose (Misc Panel) 118H 07/23/20 06:16: Bedside Glucose (Misc Panel) 152H 07/23/20 06:40: Immature Granulocyte % (Auto) 2.8, Neutrophils (%) (Auto) 84.6H, Lymphocytes (%) (Auto) 5.6L, Monocytes (%) (Auto) 5.1, Eosinophils (%) (Auto) 1.3, Basophils (%) (Auto) 0.6, Neutrophils # (Auto) 8.2, Lymphocytes # (Auto) 0.5L, Monocytes # (Auto) 0.5, Eosinophils # (Auto) 0.1, Basophils # (Auto) 0.1, Nucleated Red Blood Cells % (auto) 0.3H, Anion Gap 9, Glomerular Filtration Rate 18.4L, Calcium Level 8.1L CBC/BMP Laboratory Tests 07/23/20 06:40 HUSSEIN FRANCO MD Jul 23, 2020 11:17
--- NOTE | 2020-07-23 12:01 | IPN ---
PROGRESS NOTE DATE: 07/23/2020 SUBJECTIVE: The patient is seen and examined this morning at the bedside. He is in poor spirits. He remains NPO. He is on now on TPN. He continues to have right upper quadrant pain, nausea and reports dry heaves. OBJECTIVE: VITAL SIGNS: Temperature 95.0, pulse 62, respiratory rate 20, blood pressure 134/62, saturating 90% on room air. Repeat temperature this morning was 97.9. INPUT AND OUTPUT: His oral intake remains zero. His IV intake yesterday was 1 liter. Weight on the bed scale today was 73.2 kg, similar as it has been on prior days. GENERAL APPEARANCE: Patient is seen lying in bed, he is an elderly male, appears chronically ill, fatigued and frail with bitemporal wasting. HEENT: Extraocular muscles are intact. Tongue is moist. NECK: Supple. There is a tunneled hemodialysis catheter on the left. There is a chemo port on the right. There is no jugular venous distention. LUNGS: Clear to auscultation bilaterally. HEART: Regular S1 and S2. There is a systolic murmur. There is no dependent edema. There is no peripheral edema. ABDOMEN: Soft. There is tenderness in the right upper quadrant. There are hypoactive bowel sounds. EXTREMITIES: Negative for clubbing, cyanosis or edema. NEUROLOGIC: He is awake, alert and oriented x3. MUSCULOSKELETAL: Muscle wasting. LABORATORY DATA: White count 9.7, hemoglobin 8.9, platelets 265,000, sodium 139, potassium 3.5. INPATIENT MEDICATIONS: He is receiving TPN at a total of 60 ml/hr. The remainder of medications are unchanged as compared to yesterday. PROBLEMS: 1. Endstage renal disease. This week the patient is on a Tuesday, , Tuesday schedule because of dialysis scheduling issues in the inpatient dialysis unit. Next dialysis will be on , July 24. Okay to continue with daily TPN at this time. His electrolytes and volume status are acceptable. He has a significant protein calorie malnutrition. 2. Chronic hypotension, continue with Midodrine. Up until now, the patient has had minimal fluid removed with dialysis but we will reassess this closely as the patient is now on standing TPN. 3. Small bowel obstruction with contained perforation. He is followed by Surgical Service. He has been NPO for several days. He was receiving a low rate of D5 half NS but as he remains NPO he is now switched over to TPN at a total rate of 60 ml an hour. He is also on renally dosed Zosyn, we will watch his volume status closely. 4. Anemia related to chronic renal failure. He continues on Aranesp with dialysis. 5. Hypoalbuminemia and protein calorie malnutrition. I agree with continuation of TPN at this time. 6. Disposition: Overall, the patient's prognosis is poor with his multiple issues and ongoing deconditioning in the setting of indolent malignancy.
--- NOTE | 2020-07-23 12:31 | IPNPDOC ---
Text Note Date of Service The patient was seen on 07/23/20. NOTE Gen. surgery. Dr Mejia The patient is a 75-year-old male with several underlying medical conditions and history of Whipple procedure for pancreatic cancer approximately 20 years ago. He developed upper abdominal discomfort and was admitted 07/17/20 with bowel perforation. NG tube was unable to be inserted yesterday. Pt reports nausea and vomiting this am. Reports persistent abdominal pain predominantly in the right upper quadrant. Emesis x 2, no BM. Afebrile. VSS. 95% room air. General. Awake and alert lying in bed. S1S2 RRR Lungs clear anteriorly. abd - still distended, tenderness with palpation in the right upper quadrant, no rebound, guarding. Extremities. No edema. WBC 9.7, hemoglobin 8.9, platelets 265. I/O 1010/850. Upper GI with small bowel follow through 07/21/20 report pending. Images were reviewed by Dr. Mejia, contrast mostly pooled in the stomach with dilated small bowel loops noted. Assessment/plan 75y/o male with RUQ small bowel perforation/SBO. The patient is reviewed and examined this morning as per Dr. Mejia. Unable to insert NG tube yesterday. IV Zosyn. Continue TPN as per hospitalist. Poor IV access, Hospitalist requesting PICC. Dr Mejia planning laparoscopic surgery 07/25. VS,Fishbone, I+O VS, Fishbone, I+O Laboratory Tests 07/23/20 06:40 Vital Signs Date Time Temp Pulse Resp B/P (MAP) Pulse Ox O2 Delivery O2 Flow Rate FiO2 07/23/20 11:23 61 18 95 Room Air 07/23/20 10:47 98.1 07/23/20 07:30 134/62 (86) 07/17/20 00:23 I&O- Last 24 Hours up to 6 AM 07/23/20 06:00 Intake Total 1010 ml Output Total 850 ml Balance 160 ml Attending Note Attending Note Patient without much change. NG attempted yesterday several times without success and pt will not allow further attempts. Still with nausea and some vomiting. TPN begun yesterday. Abd flat and fly frame tender mildly in RUQ. Plan: will proceed with laparoscopy and possible laparotomy 07/25. Chrissy Borden Jul 23, 2020 12:30 Ricky Mejia Jul 23, 2020 20:14
[2020-07-23] MEDS: PANTOPRAZOLE 40MG VIAL (C9113 PER 1) IV SCH ×2 (12:43→20:20)
[2020-07-23 14:00] VITALS: BP 150/75
[2020-07-23] MEDS ORDERED: MULTIVITAMIN -ADULT INJECTION 10 ML, CR/CU/SE/MN/ZN INJ 1 ML in AMINO AC/ELECTROLYTE/DE... IV SCH (18:00)
[2020-07-23] MEDS ORDERED: FAT EMULSION IV 20% 500 ML IV SCH (18:00)
--- NOTE | 2020-07-23 18:11 | REP ---
INDICATION: dual lumen picc or midline if possible.. COMPARISON: None. TECHNIQUE: The procedure was performed under the direct supervision of Dr. Cabrera. The risks and benefits of the procedure were explained to the patient and informed consent was obtained. The right basilic vein was localized using ultrasound guidance. The skin was prepped and draped in a sterile fashion. 2% lidocaine was used as a local anesthetic. Using ultrasound guidance the basilic vein was cannulated and a 0.018 guidewire was inserted and advanced to the SVC using fluoroscopic guidance. The needle was removed and a 5.5 Brazilian dilator and peel-away sheath was inserted over the guide wire. A 5.5 Brazilian dual lumen catheter was cut to length of 42 cm. The dilator was removed and the catheter was inserted over the guide wire with the tip ending in the SVC. The peel-away sheath was removed and the catheter was flushed with heparinized saline as per Hospital protocol. The catheter was affixed to the skin and a sterile dressing was applied. The patient tolerated the procedure well and there were no immediate complications. 0.3 minutes of fluoro time was utilized for this procedure. FINDINGS: None IMPRESSION: PICC line insertion right basilic vein with the tip of the catheter ending in the superior vena cava. <Electronically signed by Federico Maher > 07/23/20 [id number] <Electronically signed by Garo Cabrera > 07/23/20 [id number]
[2020-07-23] MEDS: SODIUM CHLORIDE 0.9% INJ 10 ML SYR IV PRN (21:19)
[2020-07-23 22:00] VITALS: BP 156/71
[2020-07-24] MEDS: HumaLOG INSULIN (NovoLOG) PER UNIT SC SCH ×4 (00:16→16:52)
[2020-07-24] MEDS: PIPERACILLIN/TAZOBACTAM SOD 2.25 GM in D5W MINI-BAG PLUS 50 ML IV SCH ×3 (04:27→20:00)
[2020-07-24] MEDS: PANTOPRAZOLE 40MG VIAL (C9113 PER 1) IV SCH ×2 (05:53→20:00)
[2020-07-24] MEDS: SODIUM CHLORIDE 0.9% INJ 10 ML SYR IV SCH ×3 (05:53→18:30)
[2020-07-24] MEDS: SODIUM CHLORIDE 0.9% INJ 10 ML SYR IV PRN (05:54)
[2020-07-24] MEDS: MIDODRINE 5 MG TAB PO SCH ×2 (05:55→14:30)
[2020-07-24 05:57] VITALS: BP 99/64
[2020-07-24 06:40] LABS: BASO % 0.4 % (0.0-1.0); EOS # 0.3 10^3/uL (0.0-0.5); EOS % 3.1 % (0.0-3.0); HEMATOCRIT 29.3 % (42.0-52.0); HEMOGLOBIN 8.8 g/dl (13.5-17.5); LYMPH % 9.6 % (24.0-44.0); MEAN CORPUSCULAR HEMOGLOBIN 29.2 pg (27.0-33.0); MEAN CORPUSCULAR VOLUME 97.3 fl (80.0-96.0); MONO # 0.7 10^3/uL (0.0-0.8); MONO % 6.5 % (2.0-8.0); NEUTROPHILS # 7.8 10^3/uL (1.5-8.5); PLATELET COUNT, AUTOMATED 224 10^3/uL (150-450); RED BLOOD COUNT 3.01 10^6/uL (4.30-6.10); WHITE BLOOD COUNT 10.2 10^3/uL (4.0-10.0)
[2020-07-24 07:02] LABS: CALCIUM LEVEL 8.3 MG/DL (8.8-10.2); CREATININE FOR GFR 3.81 MG/DL (0.70-1.30); GLOMERULAR FILTRATION RATE 16.5 (>42); POTASSIUM SERUM 3.6 MEQ/L (3.5-5.1)
[2020-07-24 07:25] VITALS: BP 130/72
--- NOTE | 2020-07-24 08:46 | IPNPDOC ---
Text Note Date of Service The patient was seen on 07/24/20. NOTE NOTE Gen. surgery. Dr Mejia The patient is a 75-year-old male with several underlying medical conditions and history of Whipple procedure for pancreatic cancer approximately 20 years ago. He developed upper abdominal discomfort and was admitted 07/17/20 with bowel perforation. Pt reports nausea but no vomiting this am. Reports persistent abdominal pain predominantly in the right upper quadrant, unchanged. Emesis x 2 yesterday, no BM. Denies flatus. Afebrile. VSS. General. Awake and alert lying in bed. NAD S1S2 RRR Lungs clear anteriorly. abd - still distended, tenderness with palpation in the right upper quadrant, no rebound, guarding. Extremities. No edema. WBC 10.2, hemoglobin 8.8, platelets 224. I/O 1010/850. Assessment/plan 75y/o male with RUQ small bowel perforation/SBO. Upper GI 07/21/20 contrast mostly pooled in the stomach with dilated small bowel loops noted. Unable to insert NG tube 07/22. IV Zosyn. Continue TPN as per hospitalist. Dr Mejia planning laparoscopy, possible laparotomy 07/25. VS,Fishbone, I+O VS, Fishbone, I+O Laboratory Tests 07/24/20 05:50 Vital Signs Date Time Temp Pulse Resp B/P (MAP) Pulse Ox O2 Delivery O2 Flow Rate FiO2 07/24/20 07:25 130/72 (91) 07/24/20 05:57 97.4 74 20 93 Room Air I&O- Last 24 Hours up to 6 AM 07/24/20 06:00 Intake Total 1200 ml Output Total 0 ml Balance 1200 ml Attending Note Attending Note Agree with note per Chrissy Borden. Patient with persistent picture of small bowel obstruction. Plan to proceed with surgery 07/25. Will attempt laparoscopically but think possibility of laparotomy is high. Chrissy Borden Jul 24, 2020 08:46 Ricky Mejia Jul 25, 2020 12:22
--- NOTE | 2020-07-24 09:20 | ECGEPIP ---
[facility] Test Date: 2020-07-23 Pat Name: LORENZA MENDEZ Department: Room: [place] [address] Gender: Male Emergency Response Technician: LAKISHA : 1945 Requested By: HUSSIEN FRANCO Order Number: [id number] Reading MD: Sundar Park Measurements Intervals Winters Rate: 76 P: 22 PA: 186 QRS: -3 QRSD: 82 T: -2 QT: 412 QTc: 463 Interpretive Statements Normal sinus rhythm with frequent premature ventricular complexes Low voltage QRS throughout Septal infarct , age undetermined Possible Lateral infarct , age undetermined No significant change when compared to prior tracing of 07/16/2020 Electronically Signed on 07-24-2020 9:20:07 EDT by Sundar Park
[2020-07-24] MEDS: DARBEPOETIN 200MCG/0.4ML *DIALYSIS* SYRINGE (J0882 PER 1MCG) IV SCH (11:21)
--- NOTE | 2020-07-24 11:35 | IPNPDOC ---
Subjective Date Seen The patient was seen on 07/24/20. Subjective Chief Complaint/HPI Continues to have abdominal pain and nausea, going for HD today. Objective Physical Examination General Exam: Positive: Alert, Cooperative, No Acute Distress Eye Exam: Positive: PERRLA, Conjunctiva & lids normal, EOMI ENT Exam: Positive: Atraumatic, Mucous membr. moist/pink, Pharynx Normal Neck Exam: Positive: Supple Chest Exam: Positive: Clear to auscultation, Normal air movement, Other Heart Exam: Positive: Rate Normal, Regular Rhythm, Normal S1, Normal S2, Murmurs Abdomen Exam: Positive: BS Hypoactive, Soft, Tenderness Extremity Exam: Negative: Clubbing, Cyanosis, Edema Psych Exam: Positive: Memory Intact, Oriented x 3 Assessment /Plan Assessment Mr. Acosta is a 75 yr old smoker w a hx of metastatic pancreatic cancer with mets to lungs with h/o wipple's procedure in 2000 with mets to lungs in 2014 had chemotherapy which finished in 2016 refused any further chemotherapy in 2019, Chronic left sided hydropneumothorax with chronic pleurx catheter in place from 05/09/20, ESRD started on HD in may 2020, Perm cath placement on 05/27/20, chronic hypotension, Pulmonary HTN and recurrent SBOs who presented w n/v and abdominal pain and was found to have pneumoperitoneum, high up SBO and GI bleed. CT abd/pelvis showed 07/16/20 IMPRESSION: Small volume of extraluminal pneumoperitoneum in the anterior right mid abdomen with an adjacent dilated small bowel loops measuring up to 4 cm in diameter with inspissated enteric contents and dilatation of the adjacent bowel loop suggesting a focal small bowel obstruction. No obvious obstructing mass. Distention of the stomach with ingested material, and possible narrowing or stricture at the gastrojejunostomy anastomosis. CT abd and pelvis on 07/18/20 1. Small amount of pneumoperitoneum along the anterior right mid/upper abdomen essentially unchanged and certainly without increase. 2. The underlying small bowel pattern now demonstrates decreased distension suggesting mild progressive resolution to the previously suspected small-bowel obstruction. There is no evidence for acute obstruction and no ascites or drainable collection/abscess. 3. Chronic nonacute findings as noted above. 4. Lung base changes include stable left hydropneumothorax along with mildly increased area of opacity, atelectasis and small pleural reaction at the right lung base. Persistent Small bowel obstruction with contained perforation Surgical consult Dr Mejia. Upper GI series Images were reviewed by Dr. Mejia, Contrast mostly pooled in the stomach with dilated small bowel loops noted. On zosyn, NPO, NG tube Albumin dropping started on TPN Planned for OR on 07/25/20 GI Bleed with chronic anemia The pt had melena likely due to the perforation hb stable. continue PPI ESRD possible chemo induced. MWF via permacath Nephro consulted. Chronic hypotension Midodrine Pancreatic adenocarcinoma with mets to the bilateral lung and chronic left hydropneumothorax. 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 Chronic left hydropneumothorax. 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 CT chest IMPRESSION: Increase in left-sided hydropneumothorax despite the presence of catheter. The fluid component has increased significantly, suggesting that the catheter may be occluded or not functioning properly. Stable appearance of multiple right lung cavitary lesions. CXR stable left hydropneumothorax, entrapped lung. Xrays reviewed by Dr Yefri maher shows entrapped lung which is never going to expand. As per him plerx catheter is not doing anything for the lung. He can go ahead with surgery without any issues with the pleurex cath will continue with pleurex cath draining every other day. Debility / Deconditioning The patient reports being weaker and not being able to walk up the stairs in his house w/o assistance after his recent hospital admission PT/OT H/o Atrial fibrillation Now in sinus rhythm with PACs, PVCs and NSVTs. BPH does not make much urine any more. Plan/VTE VTE Prophylaxis Ordered?: Yes VS, I&O, 24H, Fishbone Vital Signs/I&O Vital Signs Date Time Temp Pulse Resp B/P (MAP) Pulse Ox O2 Delivery O2 Flow Rate FiO2 3/25/21 07:25 130/72 (91) 07/24/20 05:57 97.4 74 20 93 Room Air I&O- Last 24 Hours up to 6 AM 07/24/20 06:00 Intake Total 1200 ml Output Total 0 ml Balance 1200 ml Laboratory Data 24H LABS Laboratory Tests 2 07/23/20 11:46: Bedside Glucose (Misc Panel) 142H 07/23/20 17:43: Bedside Glucose (Misc Panel) 122H 07/24/20 00:09: Bedside Glucose (Misc Panel) 126H 07/24/20 05:38: Bedside Glucose (Misc Panel) 89 07/24/20 05:50: Immature Granulocyte % (Auto) 4.4H, Neutrophils (%) (Auto) 76.0H, Lymphocytes (%) (Auto) 9.6L, Monocytes (%) (Auto) 6.5, Eosinophils (%) (Auto) 3.1H, Basophils (%) (Auto) 0.4, Neutrophils # (Auto) 7.8, Lymphocytes # (Auto) 1.0L, Monocytes # (Auto) 0.7, Eosinophils # (Auto) 0.3, Basophils # (Auto) 0.0, Nucleated Red Blood Cells % (auto) 0.6H, Anion Gap 7L, Glomerular Filtration Rate 16.5L, Calcium Level 8.3L CBC/BMP Laboratory Tests 07/24/20 05:50 HUSSEIN FRANCO MD Jul 24, 2020 11:35
--- NOTE | 2020-07-24 13:26 | IPN ---
PROGRESS NOTE DATE: 07/24/2020 Dave Flores is seen this morning on his bedside during hemodialysis. He remains nothing by mouth and currently receiving total parenteral nutrition (TPN). He denies any fever or chills. He has no dyspnea or chest pain. He was admitted with abdominal pain and noticed to have perforated viscus with contained abscess. There was a plan for going to operating room (OR) yesterday; however, now nursing staff tells me that he is likely to go to OR tomorrow by Dr. Mejia. PHYSICAL EXAMINATION: Temperature 97.4 degrees Fahrenheit, heart rate 74 per minute, respiratory rate 20 per minute, blood pressure 99/64 mmHg, and oxygen saturation 93% on room air. His head is atraumatic. Oral mucosa is dry. Neck is supple, and there is no jugular venous distention (JVD) or thyroid enlargement. Dialysis catheter on upper chest is without any signs of infection or bleeding. Heart sounds are regular and lungs with diminished breath sounds at left base. Abdomen with mild tenderness in right upper quadrant. Bowel sounds are normal. Extremities without any cyanosis or clubbing. He has an Olciht-G-Gghh on right upper chest and hemodialysis catheter on left upper chest near the shoulder. Neurologically, he is awake, alert, and at his baseline mentation. Patient has a peripherally inserted central catheter (PICC) line in his right upper arm. On review of his labs, his hemoglobin is 10.2, hematocrit 29.3, and platelets 224. Sodium 137, potassium 3.6, BUN 25, and creatinine 3.81. Glucose 89 and calcium 8.3. Total protein 5.6 and albumin only 1.7 on July 22. PROBLEMS: 1. End-stage renal disease. Patient is dialysis dependent and currently being dialyzed. He is tolerating his hemodialysis well. 2. Nutrition. Patient is receiving TPN, as he has been nothing by mouth. I would recommend increasing the TPN rate to 60 mL of TPN and 20 mL of fat per hour. 3. Anemia. At this point, his anemia is stable and does not need any urgent intervention. 4. Chronic left pleural effusion and congestive heart failure. His volume status is very well compensated. 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 At this point, we are not removing any fluid with dialysis due to soft blood pressure and no evidence of any peripheral edema. 5. Hypokalemia. This is nutritional, as patient has been nothing by mouth and on TPN. We are dialyzing him with 4.0 mEq potassium bath. I will suggest to his primary care to add some potassium in the TPN, as his TPN is being ordered by his primary care physician. 6. Intra-abdominal abscess. Patient is afebrile and hemodynamically stable. Likely to go to operating room by Dr. Mejia tomorrow.
[2020-07-24 14:00] VITALS: BP 100/64
[2020-07-24] MEDS ORDERED: FAT EMULSION IV 20% 500 ML IV SCH (18:00)
[2020-07-24] MEDS ORDERED: AMINO AC/ELECTROLYTE/DEX/CALC 2,000 ML IV SCH (18:00)
[2020-07-24 22:00] VITALS: BP 130/71
[2020-07-25] MEDS: PIPERACILLIN/TAZOBACTAM SOD 2.25 GM in D5W MINI-BAG PLUS 50 ML IV SCH ×3 (03:28→20:29)
[2020-07-25] MEDS: SODIUM CHLORIDE 0.9% INJ 10 ML SYR IV PRN ×2 (04:14→21:23)
[2020-07-25] MEDS: SODIUM CHLORIDE 0.9% INJ 10 ML SYR IV SCH ×3 (05:53→17:55)
[2020-07-25] MEDS: HumaLOG INSULIN (NovoLOG) PER UNIT SC SCH ×4 (05:54→17:49)
[2020-07-25 06:00] VITALS: BP 144/86
[2020-07-25 07:05] LABS: HEMATOCRIT 28.6 % (42.0-52.0); HEMOGLOBIN 8.7 g/dl (13.5-17.5); MEAN CORPUSCULAR HEMOGLOBIN 29.3 pg (27.0-33.0); MEAN CORPUSCULAR HGB CONC 30.4 g/dl (32.0-36.5); MEAN CORPUSCULAR VOLUME 96.3 fl (80.0-96.0); PLATELET COUNT, AUTOMATED 186 10^3/uL (150-450); RED BLOOD COUNT 2.97 10^6/uL (4.30-6.10); WHITE BLOOD COUNT 11.2 10^3/uL (4.0-10.0)
[2020-07-25 07:28] LABS: ALBUMIN 1.6 GM/DL (3.2-5.2); BILIRUBIN,TOTAL 0.3 MG/DL (0.2-1.0); CALCIUM LEVEL 7.8 MG/DL (8.8-10.2); CREATININE FOR GFR 2.74 MG/DL (0.70-1.30); GLOMERULAR FILTRATION RATE 24.1 (>42); POTASSIUM SERUM 3.4 MEQ/L (3.5-5.1); TOTAL PROTEIN 4.7 GM/DL (6.4-8.2)
[2020-07-25 08:16] LABS: ANISOCYTOSIS 1+; ATYPICAL LYMPH 2 % (0-5); BASOPHILS 3 % (0-1); EOSINOPHILS 2 % (0-3); LYMPHOCYTES 4 % (16-44); MONOCYTES 1 % (0-5); MYELOCYTES 1 % (0-0); NEUTROPHILS 85 % (28-66); PLATELET ESTIMATE NORMAL (NORMAL)
[2020-07-25] MEDS: PANTOPRAZOLE 40MG VIAL (C9113 PER 1) IV SCH ×2 (08:45→20:28)
[2020-07-25] MEDS ORDERED: fentaNYL 250 MCG/5 ML INJECTION (J3010) As Ordered ONE (08:52)
[2020-07-25] MEDS ORDERED: ROCURONIUM BROMIDE 50 MG/5 ML VIAL As Ordered ONE (08:52)
[2020-07-25] MEDS ORDERED: LIDOCAINE 2% 100MG/5ML SDV (FOR ANES.) As Ordered ONE (08:52)
[2020-07-25] MEDS ORDERED: MIDAZOLAM INJ 2MG/2ML VIAL (J2250 PER 1MG) As Ordered ONE (08:52)
[2020-07-25] MEDS ORDERED: dexameTHASONE 4 MG/ML 1ML VIAL (J1100 PER 1MG) As Ordered ONE (08:52)
[2020-07-25] MEDS ORDERED: propofoL 200 MG/20 ML VIAL As Ordered ONE (08:52)
[2020-07-25] MEDS: MIDODRINE 5 MG TAB PO SCH ×2 (08:54→13:32)
--- NOTE | 2020-07-25 09:59 | IPNPDOC ---
Text Note Date of Service The patient was seen on 07/25/20. NOTE Gen. surgery. Dr Mejia The patient is a 75-year-old male with several underlying medical conditions and history of Whipple procedure for pancreatic cancer approximately 20 years ago. He developed upper abdominal discomfort and was admitted 07/17/20 with bowel perforation/SBO. This morning, the patient requested to see Dr. Mejia. He reported to Dr. Mejia that he felt his issue had resolved on its own. He reports he has had this issue in the past and with time it also resolved on its own. He states his nausea and vomiting has completely resolved. He reports his abdominal pain has resolved. He states that yesterday he had 5 bowel movements, diarrhea. He also states he has had flatus. Afebrile. VSS. General. Awake and alert lying in bed. NAD S1S2 RRR Lungs clear anteriorly. Abdomen. Flat, soft, no tenderness with palpation this morning, no rebound, guarding, grimacing. The patient is still somewhat tympanic, there are bowel sounds present. Extremities. No edema. WBC 11.2, hemoglobin 8.7, platelets 186. Assessment/plan 75y/o male with RUQ small bowel perforation/SBO. The patient is reviewed and examined as per Dr. Mejia this morning. The patien t is reporting resolution of his nausea, vomiting and abdominal pain. He is reporting that yesterday he began having bowel movements and flatus. Dr. Mejia has discussed with the patient again this morning regarding proceeding with laparoscopic surgery. The patient is aware of the procedure, risks, benefits and potential complications including the need for laparotomy. The patient had a discussion with Dr. Mejia regarding the pros and cons of proceeding with surgery today and states that since his symptoms have improved and he feels his issue has resolved, as it has in the past, the patient declines to proceed with surgery at this time. We have discussed with the patient that we will continue to follow along for any changes. Will defer advancement of the patient's diet to hospitalist. TPN as per hospitalist. Monitor. VS,Fishbone, I+O VS, Fishbone, I+O Laboratory Tests 07/25/20 06:37 Vital Signs Date Time Temp Pulse Resp B/P (MAP) Pulse Ox O2 Delivery O2 Flow Rate FiO2 07/25/20 06:00 98.3 70 18 144/86 (105) 96 07/24/20 14:00 Room Air I&O- Last 24 Hours up to 6 AM 07/25/20 06:00 Intake Total 100 ml Output Total 875 ml Balance -775 ml Attending Note Attending Note Agree with note by Chrissy. Patient reports having passed some flatus and had several loose bowel movements. Repots he thinks this is similar to when his obstruction has resolved in the past. PEx: Abdomen somewhat full in the epigastrium. Non tender but some tympany in the epigastrium. Imp: Patient believes he is improving Plan: Will cancel surgery scheduled for today. Will follow Chrissy Borden Jul 25, 2020 09:59 Ricky Mejia Jul 29, 2020 22:20
[2020-07-25 14:00] VITALS: BP 140/84
--- NOTE | 2020-07-25 17:07 | IPNPDOC ---
Subjective Date Seen The patient was seen on 07/25/20. Subjective Chief Complaint/HPI Patient reports that he had 3 large bowel movements yesterday and 3 more smaller ones today. His right upper quadrant pain is resolved. He does not have any nausea or vomiting any more. He has been passing flatus. Patient discussed with Dr Mejia regarding this. He believes that his issue has resolved and he did not want to proceed with surgery. So His planned surgery has been deferred for now. Objective Physical Examination General Exam: Positive: Alert, Cooperative, No Acute Distress Eye Exam: Positive: PERRLA, Conjunctiva & lids normal, EOMI ENT Exam: Positive: Atraumatic, Mucous membr. moist/pink, Pharynx Normal Neck Exam: Positive: Supple Chest Exam: Positive: Clear to auscultation, Normal air movement Heart Exam: Positive: Rate Normal, Regular Rhythm, Normal S1, Normal S2, Murmurs Abdomen Exam: Positive: BS Hypoactive, Soft; Negative: Tenderness Extremity Exam: Negative: Clubbing, Cyanosis, Edema Psych Exam: Positive: Memory Intact, Oriented x 3 Assessment /Plan Assessment Mr. Acosta is a 75 yr old smoker w a hx of metastatic pancreatic cancer with mets to lungs with h/o wipple's procedure in 2000 with mets to lungs in 2014 had chemotherapy which finished in 2016 refused any further chemotherapy in 2019, Chronic left sided hydropneumothorax with chronic pleurx catheter in place from 05/09/20, ESRD started on HD in may 2020, Perm cath placement on 05/27/20, chronic hypotension, Pulmonary HTN and recurrent SBOs who presented w n/v and abdominal pain and was found to have pneumoperitoneum, high up SBO and GI bleed. CT abd/pelvis showed 07/16/20 IMPRESSION: Small volume of extraluminal pneumoperitoneum in the anterior right mid abdomen with an adjacent dilated small bowel loops measuring up to 4 cm in diameter with inspissated enteric contents and dilatation of the adjacent bowel loop suggesting a focal small bowel obstruction. No obvious obstructing mass. Distention of the stomach with ingested material, and possible narrowing or stricture at the gastrojejunostomy anastomosis. CT abd and pelvis on 07/18/20 1. Small amount of pneumoperitoneum along the anterior right mid/upper abdomen essentially unchanged and certainly without increase. 2. The underlying small bowel pattern now demonstrates decreased distension suggesting mild progressive resolution to the previously suspected small-bowel obstruction. There is no evidence for acute obstruction and no ascites or drainable collection/abscess. 3. Chronic nonacute findings as noted above. 4. Lung base changes include stable left hydropneumothorax along with mildly increased area of opacity, atelectasis and small pleural reaction at the right lung base. Small bowel obstruction with contained perforation Has started having bowel movements on 07/24/20 and passing flatus. it seems like it may be resolving. Patient has refused surgery at this time in view that his symptoms have improved Surgical consult Dr Mejia following. On zosyn, NPO on TPN GI Bleed with chronic anemia The pt had melena likely due to the perforation hb stable. continue PPI ESRD possible chemo induced. MWF via permacath Nephro consulted. Chronic hypotension Midodrine Pancreatic adenocarcinoma with mets to the bilateral lung and chronic left hydropneumothorax. 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 Chronic left hydropneumothorax. 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 CT chest IMPRESSION: Increase in left-sided hydropneumothorax despite the presence of catheter. The fluid component has increased significantly, suggesting that the catheter may be occluded or not functioning properly. Stable appearance of multiple right lung cavitary lesions. CXR stable left hydropneumothorax, entrapped lung. Xrays reviewed by Dr Asif just shows entrapped lung which is never going to expand. As per him plerx catheter is not doing anything for the lung. He can go ahead with surgery without any issues with the pleurex cath will continue with pleurex cath draining every other day. Debility / Deconditioning The patient reports being weaker and not being able to walk up the stairs in his house w/o assistance after his recent hospital admission PT/OT H/o Atrial fibrillation Now in sinus rhythm with PACs, PVCs and NSVTs. BPH does not make much urine any more. Plan/VTE VTE Prophylaxis Ordered?: Yes VS, I&O, 24H, Fishbone Vital Signs/I&O Vital Signs Date Time Temp Pulse Resp B/P (MAP) Pulse Ox O2 Delivery O2 Flow Rate FiO2 07/25/20 14:00 98.4 88 17 140/84 (102) 96 07/24/20 14:00 Room Air I&O- Last 24 Hours up to 6 AM 07/25/20 05:59 Intake Total 580 ml Output Total 875 ml Balance -295 ml Laboratory Data 24H LABS Laboratory Tests 2 07/24/20 17:28: Bedside Glucose (Misc Panel) 65L 07/24/20 23:59: Bedside Glucose (Misc Panel) 110 07/25/20 05:50: Bedside Glucose (Misc Panel) 106 07/25/20 06:37: Immature Granulocyte % (Auto) , Neutrophils (%) (Auto) , Nucleated Red Blood Cells % (auto) 0.4H, Neutrophils 85H, Band Neutrophils 2, Lymphocytes (Manual) 4L, Monocytes (Manual) 1, Eosinophils (Manual) 2, Basophils (Manual) 3H, Myelocytes 1H, Atypical Lymphocytes 2, Anisocytosis 1+, Macrocytosis 1+, Platelet Estimate NORMAL, Anion Gap 5L, Glomerular Filtration Rate 24.1L, Calcium Level 7.8L, Total Bilirubin 0.3, Aspartate Amino Transf (AST/SGOT) 19, Alanine Aminotransferase (ALT/SGPT) 11L, Alkaline Phosphatase 68, Total Protein 4.7L, Albumin 1.6L, Albumin/Globulin Ratio 0.5 07/25/20 08:40: Coronavirus (COVID-19)(PCR) NEGATIVE 07/25/20 11:40: Bedside Glucose (Misc Panel) 134H 07/25/20 16:51: Bedside Glucose (Misc Panel) 103 CBC/BMP Laboratory Tests 07/25/20 06:37 HUSSEIN FRANCO MD Jul 25, 2020 17:07
[2020-07-25] MEDS ORDERED: MULTIVITAMIN -ADULT INJECTION 10 ML, CR/CU/SE/MN/ZN INJ 1 ML in AMINO AC/ELECTROLYTE/DE... IV SCH (18:00)
[2020-07-25] MEDS ORDERED: FAT EMULSION IV 20% 500 ML IV SCH (18:00)
--- NOTE | 2020-07-25 21:13 | IPN ---
PROGRESS NOTE DATE: 07/25/2020 SUBJECTIVE: Mr. Acosta is seen this morning on his bedside. He is lying in the bed comfortably without any distress. He remains n.p.o. and continues to receive TPN for nutrition. Patient reports three loose stools through the night and denies any blood in the stool or black colored stool. Patient tells me that Dr. Mejia has decided to not pursue laparotomy at this point and continue with antibiotics. I have been informed by the resident staff that Dr. Mejia wanted to take him to the OR, however, patient declined it as he felt that he is getting better already. PHYSICAL EXAMINATION: VITALS: Temperature 98.3 degrees Fahrenheit, heart rate 70 per minute, respiratory rate 18 per minute, blood pressure 144/86 mmHg and oxygen saturation 96% on room air. HEENT: Head is atraumatic. Neck is supple and without JVD or thyroid enlargement. Oral mucosa is somewhat dry. LUNGS: Diminished breath sounds at left lower one-third. HEART: Sounds are regular. ABDOMEN: Soft, minimal tenderness in right upper quadrant is noted. Bowel sounds are present. EXTREMITIES: Without any cyanosis or clubbing. He has an Infusaport on right upper chest and hemodialysis catheter in front of left shoulder. NEUROLOGIC: He is at his baseline mentation, without a focal deficit. LABORATORY STUDIES: Today's labs show WBC 11.2, hemoglobin 8.7, hematocrit 28.6. Sodium 135, potassium 3.4, CO2 28, BUN 22, creatinine 2.74, calcium 7.8. Total protein 4.7 and albumin 1.6. PROBLEMS: 1. End-stage renal disease: Patient was dialyzed yesterday. Next dialysis will be scheduled for tomorrow. At this point, there is no emergent indication for dialysis today. 2. Hypokalemia: This is nutritional and I would recommend to add more potassium in his TPN. 3. Hyponatremia: This again is related to end-stage renal disease and TPN. I would recommend adjusting his TPN prescription. 4. Protein calorie malnutrition: Patient has been n.p.o. due to perforated viscus and possible contained infection. At this point, patient is still n.p.o. and remains on TPN. 5. Anemia: Anemia is stable at present and he will continue with weekly dose of Aranesp in dialysis. 6. Perforated viscus with abscess: Apparently patient declined surgery as he feels better and continues with antibiotics.
[2020-07-25 22:00] VITALS: BP 165/69
[2020-07-26] MEDS: PIPERACILLIN/TAZOBACTAM SOD 2.25 GM in D5W MINI-BAG PLUS 50 ML IV SCH ×3 (04:30→20:11)
[2020-07-26] MEDS: PANTOPRAZOLE 40MG VIAL (C9113 PER 1) IV SCH ×2 (05:19→20:11)
[2020-07-26] MEDS: SODIUM CHLORIDE 0.9% INJ 10 ML SYR IV SCH ×3 (05:19→17:18)
[2020-07-26 06:00] VITALS: BP 162/64
[2020-07-26] MEDS: HumaLOG INSULIN (NovoLOG) PER UNIT SC SCH ×3 (06:00→12:00)
[2020-07-26 06:17] LABS: HEMOGLOBIN 9.6 g/dl (13.5-17.5); MEAN CORPUSCULAR HEMOGLOBIN 30.1 pg (27.0-33.0); MEAN CORPUSCULAR VOLUME 97.2 fl (80.0-96.0); PLATELET COUNT, AUTOMATED 192 10^3/uL (150-450); RED BLOOD COUNT 3.19 10^6/uL (4.30-6.10); WHITE BLOOD COUNT 12.8 10^3/uL (4.0-10.0)
[2020-07-26 06:38] LABS: ANISOCYTOSIS 1+; BASOPHILS 2 % (0-1); EOSINOPHILS 2 % (0-3); LYMPHOCYTES 5 % (16-44); METAMYELOCYTES 1 % (0-0); MONOCYTES 9 % (0-5); MYELOCYTES 1 % (0-0); NEUTROPHILS 80 % (28-66); PLATELET CLUMPS SMALL AMT; PLATELET ESTIMATE NORMAL (NORMAL); POIKILOCYTOSIS 1+; POLYCHROMASIA 1+
[2020-07-26 07:00] LABS: CALCIUM LEVEL 7.9 MG/DL (8.8-10.2); CREATININE FOR GFR 3.15 MG/DL (0.70-1.30); GLOMERULAR FILTRATION RATE 20.5 (>42); POTASSIUM SERUM 3.4 MEQ/L (3.5-5.1)
[2020-07-26] MEDS: MIDODRINE 5 MG TAB PO SCH ×2 (08:00→15:50)
[2020-07-26 08:05] VITALS: BP_SYST 156; BP_DIAS 6; BP_DIAS 66
[2020-07-26 09:20] VITALS: BP 105/61
--- NOTE | 2020-07-26 09:52 | REP ---
INDICATION: follow up on bowel obs and perforation COMPARISON: Comparison CT studies are from July 18, 2020 and July 16, 2020. Comparison chest CT July 16, 2020.. TECHNIQUE: Helical scanning is acquired in 4 mm axial images were reformatted. Coronal and sagittal MPR images were generated and reviewed. 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 There clips and sutures in the right upper quadrant and central abdomen. On axial CT images, there is a moderate-sized hydropneumothorax loculated in the left base in and containing a PleurX catheter. There is a small amount of right pleural fluid. There is no visible ascites. Pneumobilia is again noted principally in the left lobe distribution unchanged. There is no evidence of definite portal venous air. No focal splenic or hepatic lesion is seen. No adrenal lesion is observed. There appears to be a choledochal jejunostomy unchanged. 2 or 3 tiny bubbles of intraperitoneal air in the right upper quadrant today. This is much decreased from July 18 and July [address] study[address] These bubbles appear to be adjacent to the right colon. No new free intraperitoneal air is seen. There is quite minimal ascitic fluid adjacent to a loop of sigmoid colon in the right lower quadrant. There is mild mural thickening in the sigmoid colon and rectosigmoid colon. The colon is normal in caliber. There are dilated small bowel loops in the central abdomen again noted consistent with central ileus and or partial small bowel obstruction. The urinary bladder is somewhat distended at the time of today's scan. Prostate contains some dystrophic calcifications. Vascular calcifications again noted. Renal cortical atrophy is seen. IMPRESSION: Gradually decreasing and now quite minimal bubbles of free air in the right upper anterior abdomen. Persistent small bowel dilation in the central abdomen consistent with focal ileus versus some degree of obstruction. Post Whipple changes with pneumobilia. Distended urinary bladder. Loculated hydropneumothorax on the left containing a PleurX catheter. <Electronically signed by Edwin Wood > 07/26/20 [id number]
[2020-07-26 14:00] VITALS: BP 111/57
[2020-07-26 15:32] VITALS: BP 125/80
[2020-07-26] MEDS: SODIUM CHLORIDE 0.9% INJ 10 ML SYR IV PRN ×2 (17:22→21:03)
--- NOTE | 2020-07-26 19:08 | IPN ---
NEPHROLOGY PROGRESS NOTE DATE: 07/26/2020 SUBJECTIVE: Mr. Acosta is seen this morning on his bedside. He is feeling about the same and reports multiple loose stools throughout the night. He had a CAT scan of abdomen and pelvis done this morning, which is reported gradually decreasing and now quite minimal bubbles of free air in the right upper anterior abdomen, persistent small bowel dilation in the center abdomen consistent with focal ileus versus some degree of obstruction. He is status post Whipple procedure. Distended urinary bladder noticed and loculated hydropneumothorax on the left containing a PleurX catheter. Patient reports frequent urination. He denies any dyspnea or chest pain. PHYSICAL EXAMINATION: Temperature 97.6 degrees Fahrenheit, heart rate 60 per minute, respiratory rate 20 per minute, blood pressure 105/60 mmHg, oxygen saturation 96% on room air. HEAD: Atraumatic. NECK: Supple and jugular venous distention (JVD) not abnormally elevated. Dialysis catheter is intact on left upper chest in front of left shoulder. Infusaport in right upper chest is also intact. He is receiving total parenteral nutrition (TPN) through his Infusaport. HEART SOUNDS: Regular. LUNGS: Diminished breath sounds at left lower 1/3. ABDOMEN: Soft with minimal tenderness in right upper quadrant. Bowel sounds are present. EXTREMITIES: No cyanosis or clubbing. NEUROLOGIC: Awake, alert and oriented times three. LABORATORY STUDIES: Today's labs show WBC 12.8, hemoglobin 9.6, hematocrit 31, platelets 192. Sodium 132, potassium 3.4, BUN 28, creatinine 3.15, glucose 112, calcium 7.9. PROBLEMS: 1. End-stage renal disease. Patient is due for dialysis and will be dialyzed later today. We will try to remove about 1.5 liters fluid. 2. Nutrition. He is receiving total parenteral nutrition (TPN), as he has been nothing by mouth due to perforated viscous. His abdominal CAT scan did show improvement in the free air and fluid collection. He remains on antibiotics. 3. Hypokalemia. This is nutritional and related to TPN. I suggest to the hospitalist service to add extra potassium in the TPN. We will dialyze him with 4.0 mEq potassium bath. 4. Frequent urination. We will get a urinalysis and urine culture to rule out any possibility of cystitis. The CAT scan did show a distended bladder, so we will get a straight catheterization done. 5. Recurrent left pleural effusion. Patient has PleurX catheter in place for drainage. 6. Anemia. His anemia is stable and improved and we will continue to monitor closely.
--- NOTE | 2020-07-26 21:23 | IPNPDOC ---
Subjective Date Seen The patient was seen on 07/26/20. Subjective Chief Complaint/HPI No abdominal pain today. No nausea or vomiting. No appetite still. Having several loose bowel movements some are green in colored. Also having frequent urine output little bit at a time. Bladder scan showed > 500 cc so straight cath was done with [address] abd showed Gradually decreasing and now quite minimal bubbles of free air in the right upper anterior abdomen. Persistent small bowel dilation in the central abdomen consistent with focal ileus versus some degree of obstruction. Objective Physical Examination General Exam: Positive: Alert, Cooperative, No Acute Distress Eye Exam: Positive: PERRLA, Conjunctiva & lids normal, EOMI ENT Exam: Positive: Atraumatic, Tongue Midline, Nares Patent Neck Exam: Positive: Supple; Negative: JVD, thyromegaly Chest Exam: Positive: Clear to auscultation, Normal air movement, Diminished (at the left base. ) Heart Exam: Positive: Rate Normal, Regular Rhythm, Normal S1, Normal S2, Murmurs Abdomen Exam: Positive: BS Hyperactive, Soft, Other (some tinkling sound and mild distension still present.); Negative: Tenderness Extremity Exam: Negative: Clubbing, Cyanosis, Edema Psych Exam: Positive: Memory Intact, Oriented x 3 Assessment /Plan Assessment Mr. Acosta is a 75 yr old smoker w a hx of metastatic pancreatic cancer with mets to lungs with h/o wipple's procedure in 2000 with mets to lungs in 2014 had chemotherapy which finished in 2016 refused any further chemotherapy in 2019, Chronic left sided hydropneumothorax with chronic pleurx catheter in place from 05/09/20, ESRD started on HD in may 2020, Perm cath placement on 05/27/20, chronic hypotension, Pulmonary HTN and recurrent SBOs who presented w n/v and abdominal pain and was found to have pneumoperitoneum, high up SBO and GI bleed. CT abd/pelvis showed 07/16/20 IMPRESSION: Small volume of extraluminal pneumoperitoneum in the anterior right mid abdomen with an adjacent dilated small bowel loops measuring up to 4 cm in diameter with inspissated enteric contents and dilatation of the adjacent bowel loop suggesting a focal small bowel obstruction. No obvious obstructing mass. Distention of the stomach with ingested material, and possible narrowing or stricture at the gastrojejunostomy anastomosis. CT abd and pelvis on 07/18/20 1. Small amount of pneumoperitoneum along the anterior right mid/upper abdomen essentially unchanged and certainly without increase. 2. The underlying small bowel pattern now demonstrates decreased distension suggesting mild progressive resolution to the previously suspected small-bowel obstruction. There is no evidence for acute obstruction and no ascites or drainable collection/abscess. 3. Chronic nonacute findings as noted above. 4. Lung base changes include stable left hydropneumothorax along with mildly increased area of opacity, atelectasis and small pleural reaction at the right lung base. 07/26/20 CT abd showed Gradually decreasing and now quite minimal bubbles of free air in the right upper anterior abdomen. Persistent small bowel dilation in the central abdomen consistent with focal ileus versus some degree of obstruction. Small bowel obstruction with contained perforation Has started having bowel movements on 07/24/20 and passing flatus. It seems like it may be resolving. Patient has refused surgery at this time in view that his symptoms have improved CT abdomen as above will start on clear liquids. On zosyn GI Bleed with chronic anemia The pt had melena likely due to the perforation hb stable. continue PPI ESRD possible chemo induced. MWF via permacath Nephro following Chronic hypotension Midodrine Pancreatic adenocarcinoma with mets to the bilateral lung and chronic left hydro pneumothorax. 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 Chronic left hydropneumothorax. 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 CT chest IMPRESSION: Increase in left-sided hydropneumothorax despite the presence of catheter. The fluid component has increased significantly, suggesting that the catheter may be occluded or not functioning properly. Stable appearance of multiple right lung cavitary lesions. CXR stable left hydropneumothorax, entrapped lung. Xrays reviewed by Dr Asif just shows entrapped lung which is never going to expand. As per him plerx catheter is not doing anything for the lung. He can go ahead with surgery if needed without any issues with the pleurex cath will continue with pleurex cath draining every other day. Debility / Deconditioning The patient reports being weaker and not being able to walk up the stairs in his house w/o assistance after his recent hospital admission PT/OT H/o Atrial fibrillation Now in sinus rhythm with PACs, PVCs and NSVTs. BPH had mild urinary retension needing straight cath. with 350 ml. Was not making much urine. But after TPN for 3 days started having more urine output. U/A clean. Plan/VTE VTE Prophylaxis Ordered?: Yes VS, I&O, 24H, Fishbone Vital Signs/I&O Vital Signs Date Time Temp Pulse Resp B/P (MAP) Pulse Ox O2 Delivery O2 Flow Rate FiO2 07/26/20 15:32 97.6 47 18 125/80 (95) 96 Room Air I&O- Last 24 Hours up to 6 AM 07/26/20 06:59 Intake Total 760 ml Output Total 0 ml Balance 760 ml Laboratory Data 24H LABS Laboratory Tests 2 07/26/20 00:40: Bedside Glucose (Misc Panel) 122H 07/26/20 06:08: Immature Granulocyte % (Auto) , Neutrophils (%) (Auto) , Nucleated Red Blood Cells % (auto) 0.4H, Neutrophils 80H, Lymphocytes (Manual) 5L, Monocytes (Manua l) 9H, Eosinophils (Manual) 2, Basophils (Manual) 2H, Metamyelocytes 1H, Myelocytes 1H, Polychromasia 1+, Poikilocytosis 1+, Anisocytosis 1+, Macrocytosis 1+, Platelet Estimate NORMAL, Clumped Platelets SMALL AMT, Anion Gap 6L, Glomerular Filtration Rate 20.5L, Calcium Level 7.9L 07/26/20 06:26: Bedside Glucose (Misc Panel) 132H 07/26/20 11:14: Urine Color YELLOW, Urine Appearance CLEAR, Urine pH 6.0, Urine Specific [place] 1.009, Urine Protein NEGATIVE, Urine Glucose (UA) NEGATIVE, Urine Ketones NEGATIVE, Urine Blood 1+H, Urine Nitrite NEGATIVE, Urine Bilirubin NEGATIVE, Urine Urobilinogen 0.2, Urine Leukocyte Esterase NEGATIVE, Urine WBC (Auto) 3, U rine RBC (Auto) 2, Urine Hyaline Casts (Auto) 0, Urine Bacteria (Auto) NEGATIVE, Urine Squamous Epithelial Cells 0, Urine Sperm (Auto) CBC/BMP Laboratory Tests 07/26/20 06:08 HUSSEIN FRANCO MD Jul 26, 2020 21:23
[2020-07-26 22:00] VITALS: BP 138/61
[2020-07-27] MEDS: PIPERACILLIN/TAZOBACTAM SOD 2.25 GM in D5W MINI-BAG PLUS 50 ML IV SCH ×3 (04:57→20:18)
[2020-07-27] MEDS: SODIUM CHLORIDE 0.9% INJ 10 ML SYR IV SCH ×3 (05:06→17:05)
[2020-07-27 05:12] LABS: BASO # 0.1 10^3/uL (0.0-0.2); EOS # 0.5 10^3/uL (0.0-0.5); HEMATOCRIT 30.8 % (42.0-52.0); HEMOGLOBIN 9.2 g/dl (13.5-17.5); LYMPH # 0.8 10^3/uL (1.5-5.0); LYMPH % 7.8 % (24.0-44.0); MEAN CORPUSCULAR HEMOGLOBIN 29.5 pg (27.0-33.0); MEAN CORPUSCULAR HGB CONC 29.9 g/dl (32.0-36.5); MEAN CORPUSCULAR VOLUME 98.7 fl (80.0-96.0); MONO # 0.8 10^3/uL (0.0-0.8); MONO % 7.8 % (2.0-8.0); NEUTROPHILS # 7.7 10^3/uL (1.5-8.5); NEUTROPHILS % 73.7 % (36.0-66.0); PLATELET COUNT, AUTOMATED 152 10^3/uL (150-450); RED BLOOD COUNT 3.12 10^6/uL (4.30-6.10); WHITE BLOOD COUNT 10.5 10^3/uL (4.0-10.0)
[2020-07-27 05:48] LABS: CALCIUM LEVEL 7.7 MG/DL (8.8-10.2); CREATININE FOR GFR 2.53 MG/DL (0.70-1.30); GLOMERULAR FILTRATION RATE 26.4 (>42); POTASSIUM SERUM 3.9 MEQ/L (3.5-5.1)
[2020-07-27 06:00] VITALS: BP 134/76
[2020-07-27] MEDS: MIDODRINE 5 MG TAB PO SCH ×2 (08:48→13:32)
[2020-07-27] MEDS: PANTOPRAZOLE 40MG VIAL (C9113 PER 1) IV SCH ×2 (08:49→20:18)
--- NOTE | 2020-07-27 10:41 | IPNPDOC ---
Subjective Date Seen The patient was seen on 07/27/20. Subjective Chief Complaint/HPI Continues to have greenish liquid stools with hard chuncks of stool in it. Tolerating clear liquids. denies any abdominal pain or nausea. No fever Objective Physical Examination General Exam: Positive: Alert, Cooperative, No Acute Distress Eye Exam: Positive: PERRLA, Conjunctiva & lids normal, EOMI ENT Exam: Positive: Atraumatic, Tongue Midline, Nares Patent Neck Exam: Positive: Supple; Negative: JVD, thyromegaly Chest Exam: Positive: Clear to auscultation, Normal air movement, Diminished (at the left base. ), Other (has pleurx cath on the left) Heart Exam: Positive: Rate Normal, Regular Rhythm, Normal S1, Normal S2, Murmurs Abdomen Exam: Positive: BS Hyperactive, Soft, Other (some tinkling sound and mild distension still present.); Negative: Tenderness Extremity Exam: Negative: Clubbing, Cyanosis, Edema Psych Exam: Positive: Memory Intact, Oriented x 3 Assessment /Plan Assessment Mr. Acosta is a 75 yr old smoker w a hx of metastatic pancreatic cancer with mets to lungs with h/o wipple's procedure in 2000 with mets to lungs in 2014 had chemotherapy which finished in 2016 refused any further chemotherapy in 2019, Chronic left sided hydropneumothorax with chronic pleurx catheter in place from 05/09/20, ESRD started on HD in may 2020, Perm cath placement on 05/27/20, chronic hypotension, Pulmonary HTN and recurrent SBOs who presented w n/v and abdominal pain and was found to have pneumoperitoneum, high up SBO and GI bleed. CT abd/pelvis showed 07/16/20 IMPRESSION: Small volume of extraluminal pneumoperitoneum in the anterior right mid abdomen with an adjacent dilated small bowel loops measuring up to 4 cm in diameter with inspissated enteric contents and dilatation of the adjacent bowel loop suggesting a focal small bowel obstruction. No obvious obstructing mass. Distention of the stomach with ingested material, and possible narrowing or stricture at the gastrojejunostomy anastomosis. CT abd and pelvis on 07/18/20 1. Small amount of pneumoperitoneum along the anterior right mid/upper abdomen essentially unchanged and certainly without increase. 2. The underlying small bowel pattern now demonstrates decreased distension suggesting mild progressive resolution to the previously suspected small-bowel obstruction. There is no evidence for acute obstruction and no ascites or drainable collection/abscess. 3. Chronic nonacute findings as noted above. 4. Lung base changes include stable left hydropneumothorax along with mildly increased area of opacity, atelectasis and small pleural reaction at the right lung base. 07/26/20 CT abd showed Gradually decreasing and now quite minimal bubbles of free air in the right upper anterior abdomen. Persistent small bowel dilation in the central abdomen consistent with focal ileus versus some degree of obstruction. Small bowel obstruction with contained perforation Has started having bowel movements on 07/24/20 and passing flatus. It seems like it may be resolving. Patient has refused surgery at this time in view that his symptoms have improved CT abdomen as above started on clear liquids. On zosyn last treatment on 07/28 Had TPN for 3 days GI Bleed with chronic anemia The pt had melena likely due to the perforation hb stable. continue PPI ESRD possible chemo induced. MWF via permacath Nephro following Chronic hypotension Midodrine Pancreatic adenocarcinoma with mets to the bilateral lung and chronic left hydropneumothorax. 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 Chronic left hydropneumothorax. 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 CT chest IMPRESSION: Increase in left-sided hydropneumothorax despite the presence of catheter. The fluid component has increased significantly, suggesting that the catheter may be occluded or not functioning properly. Stable appearance of multiple right lung cavitary lesions. CXR stable left hydropneumothorax, entrapped lung. Xrays reviewed by Dr Asif just shows entrapped lung which is never going to expand. As per him plerx catheter is not doing anything for the lung. He can go ahead with surgery if needed without any issues with the pleurex cath will continue with pleurx cath draining every other day. Debility / Deconditioning The patient reports being weaker and not being able to walk up the stairs in his house w/o assistance after his recent hospital admission PT/OT H/o Atrial fibrillation Now in sinus rhythm with PACs, PVCs and NSVTs. BPH had mild urinary retention needing straight cath. with 350 ml out Was not making much urine. But after TPN for 3 days started having more urine output. U/A clean. Plan/VTE VTE Prophylaxis Ordered?: Yes VS, I&O, 24H, Fishbone Vital Signs/I&O Vital Signs Date Time Temp Pulse Resp B/P (MAP) Pulse Ox O2 Delivery O2 Flow Rate FiO2 07/27/20 06:00 97.4 70 18 134/76 (95) 95 Room Air I&O- Last 24 Hours up to 6 AM0 07/27/20 06:00 Intake Total 350 ml Output Total 1725 ml Balance -1375 ml Laboratory Data 24H LABS Laboratory Tests 2 07/26/20 11:14: Urine Color YELLOW, Urine Appearance CLEAR, Urine pH 6.0, Urine Specific [place] 1.009, Urine Protein NEGATIVE, Urine Glucose (UA) NEGATIVE, Urine Ketones NEGATIVE, Urine Blood 1+H, Urine Nitrite NEGATIVE, Urine Bilirubin NEGATIVE, Urine Urobilinogen 0.2, Urine Leukocyte Esterase NEGATIVE, Urine WBC (Auto) 3, Urine RBC (Auto) 2, Urine Hyaline Casts (Auto) 0, Urine Bacteria (Auto) NEGAT SCOTT, Urine Squamous Epithelial Cells 0, Urine Sperm (Auto) 07/27/20 00:18: Bedside Glucose (Misc Panel) 84 07/27/20 04:58: Immature Granulocyte % (Auto) 4.7H, Neutrophils (%) (Auto) 73.7H, Lymphocytes (%) (Auto) 7.8L, Monocytes (%) (Auto) 7.8, Eosinophils (%) (Auto) 5.0H, Basophils (%) (Auto) 1.0, Neutrophils # (Auto) 7.7, Lymphocytes # (Auto) 0.8L, Monocytes # (Auto) 0.8, Eosinophils # (Auto) 0.5, Basophils # (Auto) 0.1, Nucleated Red Blood Cells % (auto) 0.2H, Anion Gap 5L, Glomerular Filtration Rate 26.4L, Calcium Level 7.7L CBC/BMP Laboratory Tests 07/27/20 04:58 HUSSEIN FRANCO MD Jul 27, 2020 10:41
[2020-07-27 14:00] VITALS: BP_SYST 149; BP_DIAS 76; BP_DIAS 92
[2020-07-27] MEDS: SODIUM CHLORIDE 0.9% INJ 10 ML SYR IV PRN ×3 (14:52→21:23)
--- NOTE | 2020-07-27 18:25 | IPN ---
NEPHROLOGY PROGRESS NOTE DATE: 07/27/2020 SUBJECTIVE: Mr. Acosta is seen this morning on his bedside. He is feeling better and denies any dyspnea or chest pain. Yesterday, he had straight catheter done to empty his bladder and since then frequency of urination has also improved. He was dialyzed yesterday, which he tolerated well. Patient is now taking liquids orally and denies any vomiting. PHYSICAL EXAMINATION: Temperature 97.4 degrees Fahrenheit, heart rate 70 per minute, respiratory rate 18 per minute, blood pressure 134/76 mmHg, oxygen saturation 95% on room air. HEAD: Atraumatic. NECK: Supple and without jugular venous distention (JVD) or thyroid enlargement. Dialysis catheter is present on left upper chest in front of the shoulder. Infusaport is present in right upper chest. HEART SOUNDS: Regular. LUNGS: Diminished breath sounds. ABDOMEN: Soft with minimal tenderness in right upper quadrant. Bowel sounds are normal. EXTREMITIES: Without any cyanosis or clubbing. NEUROLOGIC: He is awake, alert and at his baseline mentation. LABORATORY DATA: Today's labs show WBC 10.5, hemoglobin 9.2, hematocrit 30.8, platelets 152. Sodium 136, potassium 3.9, CO2 23, BUN 20, creatinine 2.53, glucose 73, calcium 7.7. PROBLEMS: 1. End-stage renal disease. Patient was dialyzed yesterday and next dialysis will be scheduled on July 29, 2020. His volume status is reasonably well-compensated and electrolytes are within normal range. 2. Perforated viscus with intraabdominal fluid collection. Patient is clinically improving and his recent CAT scan also showed some improvement yesterday. Patient remains on antibiotics. 3. Hypokalemia. This has corrected and improved. No intervention is needed at this point. 4. Hyponatremia. Sodium level has also corrected to normal range. His total parenteral nutrition (TPN) has been stopped. 5. Anemia. At present, his anemia is stable and we will continue to manage it with hemodialysis. He will receive 200 mcg of Aranesp once a week. 6. Nutrition. His TPN has been stopped and he is now taking liquid diet by mouth. 7. Chronic hypotension. Blood pressure seems to be much better and he remains on midodrine.
[2020-07-27 22:00] VITALS: BP 148/78
[2020-07-28] MEDS: PIPERACILLIN/TAZOBACTAM SOD 2.25 GM in D5W MINI-BAG PLUS 50 ML IV SCH ×3 (04:29→21:04)
--- NOTE | 2020-07-28 05:12 | IPN ---
PROGRESS NOTE DATE: 07/27/2020 SUBJECTIVE: The patient had been admitted with evidence for bowel obstruction with a minimal leak of air from a loop of bowel high in the right upper quadrant. He was treated with antibiotics and monitored for evidence of resolution of his obstruction without improvement. I had planned to take him to the Operating Room on the but that morning he reported that he had passed a large amount of flatus with several bowel movements and felt that he had improved. His surgery was therefore canceled. He was started on some clear liquids on the . He apparently has been tolerating these well. He reports today that he has been having some loose stools but denies any abdominal pain. Vital signs shows that he has been afebrile over the past 24 hours. His pulse has ranged between 47 and 70. Blood pressure is good. Intake and output shows that yesterday he had 580 ml recorded in with 1725 out, 1000 was from hemodialysis, 375 from his chest catheter and 350 ml of urine. Exam: Patient is lying quietly on the hospital bed. He looks much the same as he has. He is alert and oriented. Heart and lung exams are unchanged with diminished breath sounds on the left. The abdomen does feel softer and he has bowel sounds present. There is no significant tenderness. LABORATORY DATA: Laboratory studies today shows a white count of 10, hemoglobin of 9, hematocrit of 31 and a platelet count of 152,000. Differential count shows 74% neutrophils, 8% lymphocytes and 8% monocytes. Chemistry profile shows a sodium of 136, potassium of 3.9, chloride 108, CO2 23, BUN 20, creatinine 2.5 and a glucose of 73. He apparently had a repeat CT scan yesterday although I am not certain why. This was ordered by the Hospitalist. Review of the images showed significant decrease in the minimal bubbles in the right upper quadrant adjacent to the small bowel. There remained some air in the biliary tree consistent with his previous Whipple. IMPRESSION: The patient is now having some diarrhea and his bowel obstruction appears to have resolved. The minimal amount of air in the right upper quadrant on CT scan yesterday was significantly diminished and I do not believe he would require any further antibiotics at this time. PLAN: I will continue to check in on Mr. Acosta while he remains an inpatient. There is clearly no need for any surgical intervention at this time. AI
[2020-07-28] MEDS: SODIUM CHLORIDE 0.9% INJ 10 ML SYR IV SCH ×3 (05:29→16:51)
[2020-07-28 05:59] LABS: BASO # 0.1 10^3/uL (0.0-0.2); BASO % 0.8 % (0.0-1.0); EOS # 0.5 10^3/uL (0.0-0.5); EOS % 5.7 % (0.0-3.0); HEMATOCRIT 31.8 % (42.0-52.0); HEMOGLOBIN 9.5 g/dl (13.5-17.5); LYMPH # 0.7 10^3/uL (1.5-5.0); LYMPH % 8.1 % (24.0-44.0); MEAN CORPUSCULAR HEMOGLOBIN 29.5 pg (27.0-33.0); MEAN CORPUSCULAR HGB CONC 29.9 g/dl (32.0-36.5); MEAN CORPUSCULAR VOLUME 98.8 fl (80.0-96.0); MONO # 0.6 10^3/uL (0.0-0.8); MONO % 7.3 % (2.0-8.0); NEUTROPHILS # 6.5 10^3/uL (1.5-8.5); NEUTROPHILS % 74.1 % (36.0-66.0); PLATELET COUNT, AUTOMATED 179 10^3/uL (150-450); RED BLOOD COUNT 3.22 10^6/uL (4.30-6.10); WHITE BLOOD COUNT 8.8 10^3/uL (4.0-10.0)
[2020-07-28 06:00] VITALS: BP 149/80
[2020-07-28 06:12] LABS: CALCIUM LEVEL 7.5 MG/DL (8.8-10.2); CREATININE FOR GFR 3.23 MG/DL (0.70-1.30); GLOMERULAR FILTRATION RATE 19.9 (>42); POTASSIUM SERUM 3.5 MEQ/L (3.5-5.1)
[2020-07-28] MEDS: MIDODRINE 2.5 MG TAB PO SCH ×2 (08:00→10:11)
[2020-07-28] MEDS: PANTOPRAZOLE 40MG VIAL (C9113 PER 1) IV SCH (08:21)
--- NOTE | 2020-07-28 13:30 | IPNPDOC ---
Text Note Date of Service The patient was seen on 07/28/20. NOTE Subjective: -Tolerating clear liquids. -Denies any abdominal pain or nausea -Imaging continues to look the same -No fever Objective: General: Alert, Cooperative, No Acute Distress Eyes: PERRLA, Conjunctiva & lids normal, EOMI ENT: Atraumatic, Tongue Midline, Nares Patent Neck: Supple, no JVD Chest: Clear to auscultation, diminished left base, has pleurx cath on the left Heart: Rate Normal, Regular Rhythm, Normal S1, Normal S2, no murmur Abdomen: Hyperactive, soft, mild distension, nontender Extremities: no LE edema Psych: AOx3 Labs: Reviewed Imaging: CT abd/pelvis showed 07/16/20 IMPRESSION: Small volume of extraluminal pneumoperitoneum in the anterior right mid abdomen with an adjacent dilated small bowel loops measuring up to 4 cm in diameter with inspissated enteric contents and dilatation of the adjacent bowel loop suggesting a focal small bowel obstruction. No obvious obstructing mass. Distention of the stomach with ingested material, and possible narrowing or stricture at the gastrojejunostomy anastomosis. CT abd and pelvis on 07/18/20 1. Small amount of pneumoperitoneum along the anterior right mid/upper abdomen essentially unchanged and certainly without increase. 2. The underlying small bowel pattern now demonstrates decreased distension suggesting mild progressive resolution to the previously suspected small-bowel obstruction. There is no evidence for acute obstruction and no ascites or drainable collection/abscess. 3. Chronic nonacute findings as noted above. 4. Lung base changes include stable left hydropneumothorax along with mildly increased area of opacity, atelectasis and small pleural reaction at the right lung base. 07/26/20 CT abd showed Gradually decreasing and now quite minimal bubbles of free air in the right upper anterior abdomen. Persistent small bowel dilation in the central abdomen consistent with focal ileus versus some degree of obstruction. Assessment: 75 yr old smoker w metastatic pancreatic cancer with mets to lungs with a remote h/o a Whipple's procedure in 2000, last chemo in 2016 and refused any further chemotherapy in 2019, Chronic left sided hydropneumothorax with chronic pleurx catheter in place from 05/09/20, ESRD started on HD in may 2020, Perm cath placement on 05/27/20, chronic hypotension, Pulmonary HTN and recurrent SBOs who presented w n/v and abdominal pain and was found to have pneumoperitoneum, high up SBO and GI bleed that is all being medically managed with surgery following. Small bowel obstruction with contained perforation -Started having bowel movements on 07/24/20 and passing flatus. Clinically seems like it may be resolving. Patient refused surgery at this time in view that his symptoms have improved -CT abdomen as above -on clear liquids. -On zosyn -Had TPN for 3 days GI Bleed with chronic anemia -The pt had melena likely due to the perforation -hb stable. -Continue PPI ESRD -possible chemo induced. -MWF via permacath -Nephro following Chronic hypotension -Midodrine Pancreatic adenocarcinoma with mets to the bilateral lung and chronic left hydropneumothorax. 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 Chronic left hydropneumothorax. 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 CT chest IMPRESSION: Increase in left-sided hydropneumothorax despite the presence of catheter. The fluid component has increased significantly, suggesting that the catheter may be occluded or not functioning properly. Stable appearance of multiple right lung cavitary lesions. CXR stable left hydropneumothorax, entrapped lung. Xrays reviewed by Dr Asif just shows entrapped lung which is never going to expand. As per him plerx catheter is not doing anything for the lung. He can go ahead with surgery if needed without any issues with the pleurex cath will continue with pleurx cath draining every other day. Debility / Deconditioning -The patient reports being weaker and not being able to walk up the stairs in his house w/o assistance after his recent hospital admission -PT/OT H/o Atrial fibrillation -Now in sinus rhythm with PACs, PVCs and NSVTs. BPH: obstructive symptoms have improved. -Was not making much urine. But after TPN for 3 days started having more urine output. -U/A clean. DVT ppx: SCDs and TEDs VS,Fishbone, I+O VS, Fishbone, I+O Laboratory Tests 07/28/20 05:38 07/28/20 05:50 Vital Signs Date Time Temp Pulse Resp B/P (MAP) Pulse Ox O2 Delivery O2 Flow Rate FiO2 07/28/20 06:00 96.4 54 16 149/80 (103) 94 07/27/20 14:00 Room Air I&O- Last 24 Hours up to 6 AM 07/28/20 06:00 Intake Total 1130 ml Output Total 452 ml Balance 678 ml MARY FRENCH MD Jul 28, 2020 13:30
[2020-07-28 14:00] VITALS: BP 134/57
--- NOTE | 2020-07-28 14:16 | IPN ---
PROGRESS NOTE DATE: 07/28/2020 SUBJECTIVE: Mr. Acosta is seen this morning during hemodialysis. He is feeling better, but continues to have some loose stools through the night. He denies any dyspnea or chest pain. He is tolerating his full liquid diet. PHYSICAL EXAMINATION: Temperature 96.4 degrees Fahrenheit, heart rate 54 per minute, respiratory rate 20 per minute. Blood pressure 149/80 mmHg this morning and now down 129/76 mmHg during dialysis. His head is atraumatic. Neck is supple and without jugular venous distention (JVD) or thyroid enlargement. Dialysis catheter in front of left shoulder is intact. Infusaport on right upper chest is in place. Lungs have diminished breath sounds on the left side. Abdomen soft and nontender with bowel sounds normal. Extremities without any cyanosis or clubbing. Neurologically, he is awake, alert and oriented times 3. LABORATORY DATA: Today's labs showed WBC count 8.8, hemoglobin 9.5 and hematocrit 31.8, platelets 179. Sodium 140, potassium 3.5, chloride 110, Co2 23, BUN 26 and creatinine 3.23. PROBLEMS: 1. End-stage renal disease. The patient is being dialyzed today and he is tolerating his dialysis treatment well. We are removing about 1.5 liters of fluid as tolerated. 2. Hypokalemia, this is nutritional, as the patient has not been eating. We are using 4.0 mEq potassium bath for dialysis today. 3. Nutrition. The patient is tolerating full liquid diet and I will defer to hospitalist service to advance his diet to a renal diet. 4. Anemia. At present, his anemia is stable and no other need for a transfusion. Will continue to give him Aranesp once a week. 5. Hypotension. Blood pressure has been chronically low. He is currently on midodrine 5 mg twice a day and will continue with the same.
[2020-07-28] MEDS: MIDODRINE 5 MG TAB PO SCH (15:18)
[2020-07-28] MEDS: SODIUM CHLORIDE 0.9% INJ 10 ML SYR IV PRN ×2 (16:06→21:05)
[2020-07-28] MEDS: PANTOPRAZOLE 40MG TAB (PROTONIX) PO SCH (21:04)
[2020-07-28 22:00] VITALS: BP 153/82
[2020-07-29] MEDS: PIPERACILLIN/TAZOBACTAM SOD 2.25 GM in D5W MINI-BAG PLUS 50 ML IV SCH ×3 (04:55→21:15)
[2020-07-29 06:00] VITALS: BP 148/79
[2020-07-29] MEDS: SODIUM CHLORIDE 0.9% INJ 10 ML SYR IV SCH ×3 (06:16→15:52)
[2020-07-29 06:45] LABS: BASO # 0.1 10^3/uL (0.0-0.2); BASO % 0.9 % (0.0-1.0); EOS # 0.4 10^3/uL (0.0-0.5); EOS % 4.7 % (0.0-3.0); HEMATOCRIT 32.5 % (42.0-52.0); HEMOGLOBIN 9.8 g/dl (13.5-17.5); LYMPH # 0.7 10^3/uL (1.5-5.0); MEAN CORPUSCULAR HEMOGLOBIN 29.7 pg (27.0-33.0); MEAN CORPUSCULAR HGB CONC 30.2 g/dl (32.0-36.5); MEAN CORPUSCULAR VOLUME 98.5 fl (80.0-96.0); MONO # 0.6 10^3/uL (0.0-0.8); MONO % 7.7 % (2.0-8.0); NEUTROPHILS # 6.3 10^3/uL (1.5-8.5); NEUTROPHILS % 76.5 % (36.0-66.0); PLATELET COUNT, AUTOMATED 189 10^3/uL (150-450); WHITE BLOOD COUNT 8.2 10^3/uL (4.0-10.0)
[2020-07-29 07:04] LABS: CALCIUM LEVEL 7.6 MG/DL (8.8-10.2); CREATININE FOR GFR 3.07 MG/DL (0.70-1.30); GLOMERULAR FILTRATION RATE 21.1 (>42); POTASSIUM SERUM 3.6 MEQ/L (3.5-5.1)
[2020-07-29] MEDS: MIDODRINE 5 MG TAB PO SCH ×2 (08:00→13:07)
[2020-07-29 08:13] VITALS: BP 143/79
[2020-07-29] MEDS: PANTOPRAZOLE 40MG TAB (PROTONIX) PO SCH ×2 (08:14→21:15)
[2020-07-29 13:07] VITALS: BP 163/79
--- NOTE | 2020-07-29 13:18 | IPN ---
PROGRESS NOTE DATE: 07/29/2020 Mr. Acosta is seen this morning on his bedside. He is lying in the bed as usual without any acute distress. He denies any nausea, vomiting, dyspnea, or chest pain. He is tolerating his soft diet. He has no fever or chills. Patient was dialyzed yesterday, and he tolerated his dialysis treatment very well. We were able to remove about 1500 mL fluid with dialysis yesterday. PHYSICAL EXAMINATION: Temperature 98.2 degrees Fahrenheit, heart rate is 60 per minute, blood pressure 143/79 mmHg, respiratory rate is 16 per minute, and oxygen saturation is 95% on room air. Head is atraumatic. Neck supple and without jugular venous distention (JVD) or thyroid enlargement. Heart sounds are regular and lungs with diminished breath sounds on the left side. Abdomen soft, and nontender, and bowel sounds are normal. Extremities without any cyanosis or clubbing. He has a Perm-A-Cath on left upper chest and Ohugsr-R-Evxu on the right side of the chest. Neurologically, he is at his baseline mentation without a focal deficit. Today's labs show WBC count 8.2, hemoglobin 9.8, hematocrit 32.5, platelets 189. Sodium 138, potassium 3.6, CO2 of 20, BUN 17, and creatinine 3.0. Glucose 79 and calcium 7.6. PROBLEMS: 1. End-stage renal disease. Patient was dialyzed yesterday, and next dialysis will be scheduled for tomorrow. There is no emergent need for dialysis today. 2. Anemia. His anemia is stable at present and does not need any intervention. He will continue to receive Aranesp once a week with dialysis. 3. Hypokalemia. This is nutritional and improved. We will recheck his electrolytes tomorrow. 4. Perforated vicious with intra-abdominal fluid collection. Patient is improving symptomatically and tolerating a diet. He remains on antibiotics and afebrile. 5. Hypotension. Blood pressure seems to be doing very well, and he remains on midodrine 5 mg twice a day. 6. Generalized weakness and deconditioning. Patient remains very weak and mostly in the bed. He should continue with physical therapy.
[2020-07-29 13:37] VITALS: BP 145/76
[2020-07-29] MEDS: SODIUM CHLORIDE 0.9% INJ 10 ML SYR IV PRN (13:57)
[2020-07-29 14:00] VITALS: BP 163/79
--- NOTE | 2020-07-29 16:46 | IPNPDOC ---
Text Note Date of Service The patient was seen on 07/29/20. NOTE Subjective: -Tolerating full liquids. -Denies any abdominal pain or nausea -Imaging continues to look the same -No fever Objective: General: Alert, Cooperative, No Acute Distress Eyes: PERRLA, Conjunctiva & lids normal, EOMI ENT: Atraumatic, Tongue Midline, Nares Patent Neck: Supple, no JVD Chest: Clear to auscultation, diminished left base, has pleurx cath on the left Heart: Rate Normal, irregular, Normal S1, Normal S2, no murmur Abdomen: Hyperactive, soft, mild distension, nontender Extremities: no LE edema Psych: AOx3 Labs: Reviewed Imaging: CT abd/pelvis showed 07/16/20 IMPRESSION: Small volume of extraluminal pneumoperitoneum in the anterior right mid abdomen with an adjacent dilated small bowel loops measuring up to 4 cm in diameter with inspissated enteric contents and dilatation of the adjacent bowel loop suggesting a focal small bowel obstruction. No obvious obstructing mass. Distention of the stomach with ingested material, and possible narrowing or stricture at the gastrojejunostomy anastomosis. CT abd and pelvis on 07/18/20 1. Small amount of pneumoperitoneum along the anterior right mid/upper abdomen essentially unchanged and certainly without increase. 2. The underlying small bowel pattern now demonstrates decreased distension suggesting mild progressive resolution to the previously suspected small-bowel obstruction. There is no evidence for acute obstruction and no ascites or drainable collection/abscess. 3. Chronic nonacute findings as noted above. 4. Lung base changes include stable left hydropneumothorax along with mildly increased area of opacity, atelectasis and small pleural reaction at the right lung base. 07/26/20 CT abd showed Gradually decreasing and now quite minimal bubbles of free air in the right upper anterior abdomen. Persistent small bowel dilation in the central abdomen consistent with focal ileus versus some degree of obstruction. Assessment: 75 yr old smoker w metastatic pancreatic cancer with mets to lungs with a remote h/o a Whipple's procedure in 2000, last chemo in 2016 and refused any further chemotherapy in 2019, Chronic left sided hydropneumothorax with chronic pleurx catheter in place from 05/09/20, ESRD started on HD in may 2020, Perm cath placement on 05/27/20, chronic hypotension, Pulmonary HTN and recurrent SBOs who presented w n/v and abdominal pain and was found to have pneumoperitoneum, high up SBO and GI bleed that is all being medically managed with surgery following. Small bowel obstruction with contained perforation -Started having bowel movements on 07/24/20 and passing flatus. Clinically seems like it may be resolving. Patient refused surgery at this time in view that his symptoms have improved -CT abdomen as above -on full liquids. -On zosyn -Had TPN for 3 days GI Bleed with chronic anemia -The pt had melena likely due to the perforation -hb stable. -Continue PPI ESRD -possible chemo induced. -MWF via permacath -Nephro following Chronic hypotension -Midodrine Pancreatic adenocarcinoma with mets to the bilateral lung and chronic left hydropneumothorax. 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 Chronic left hydropneumothorax. 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 CT chest IMPRESSION: Increase in left-sided hydropneumothorax despite the presence of catheter. The fluid component has increased significantly, suggesting that the catheter may be occluded or not functioning properly. Stable appearance of multiple right lung cavitary lesions. CXR stable left hydropneumothorax, entrapped lung. Xrays reviewed by Dr Asif just shows entrapped lung which is never going to expand. As per him plerx catheter is not doing anything for the lung. He can go ahead with surgery if needed without any issues with the pleurex cath will continue with pleurx cath draining every other day. Debility / Deconditioning -The patient reports being weaker and not being able to walk up the stairs in his house w/o assistance after his recent hospital admission -PT/OT H/o Atrial fibrillation -Currently irregular with morbitz type 1, asymptomatic BPH: obstructive symptoms have improved. -Was not making much urine. But after TPN for 3 days started having more urine output. -U/A clean. DVT ppx: SCDs and TEDs VS,Fishbone, I+O VS, Fishbone, I+O Laboratory Tests 07/29/20 06:25 Vital Signs Date Time Temp Pulse Resp B/P (MAP) Pulse Ox O2 Delivery O2 Flow Rate FiO2 07/29/20 08:13 143/79 (100) 07/29/20 06:00 98.2 59 18 95 Room Air I&O- Last 24 Hours up to 6 AM 07/29/20 06:00 Intake Total 2470 ml Output Total 1850 ml Balance 620 ml MARY FRENCH MD Jul 29, 2020 08:36
[2020-07-29 22:00] VITALS: BP 155/53
[2020-07-30] MEDS: PANTOPRAZOLE 40MG TAB (PROTONIX) PO SCH ×2 (05:04→21:01)
[2020-07-30] MEDS: PIPERACILLIN/TAZOBACTAM SOD 2.25 GM in D5W MINI-BAG PLUS 50 ML IV SCH ×3 (05:04→21:01)
[2020-07-30] MEDS: SODIUM CHLORIDE 0.9% INJ 10 ML SYR IV SCH ×2 (05:04→07:23)
[2020-07-30 05:21] LABS: BASO # 0.1 10^3/uL (0.0-0.2); BASO % 0.5 % (0.0-1.0); EOS # 0.3 10^3/uL (0.0-0.5); EOS % 2.3 % (0.0-3.0); HEMATOCRIT 33.1 % (42.0-52.0); HEMOGLOBIN 9.9 g/dl (13.5-17.5); LYMPH # 0.7 10^3/uL (1.5-5.0); LYMPH % 5.7 % (24.0-44.0); MEAN CORPUSCULAR HEMOGLOBIN 29.3 pg (27.0-33.0); MEAN CORPUSCULAR HGB CONC 29.9 g/dl (32.0-36.5); MEAN CORPUSCULAR VOLUME 97.9 fl (80.0-96.0); MONO # 0.7 10^3/uL (0.0-0.8); MONO % 6.1 % (2.0-8.0); NEUTROPHILS # 10.1 10^3/uL (1.5-8.5); NEUTROPHILS % 84.3 % (36.0-66.0); PLATELET COUNT, AUTOMATED 187 10^3/uL (150-450); RED BLOOD COUNT 3.38 10^6/uL (4.30-6.10)
[2020-07-30 05:48] LABS: CALCIUM LEVEL 7.8 MG/DL (8.8-10.2); CREATININE FOR GFR 3.59 MG/DL (0.70-1.30); GLOMERULAR FILTRATION RATE 17.6 (>42); POTASSIUM SERUM 3.8 MEQ/L (3.5-5.1)
[2020-07-30 06:00] VITALS: BP 159/67
[2020-07-30] MEDS: MIDODRINE 5 MG TAB PO SCH ×2 (07:23→13:38)
--- NOTE | 2020-07-30 08:55 | ECGEPIP ---
[facility] Test Date: 2020-07-29 Pat Name: LORENZA MENDEZ Department: Room: [place] [address] Gender: Male [employer] Supervisor: LAKISHA : 1945 Requested By: MARY Zapata Order Number: [id number] Reading MD: Graham Madden Measurements Intervals [place] Rate: 80 P: 54 [place]: 160 QRS: -18 QRSD: 52 T: -85 QT: 368 QTc: 424 Interpretive Statements Sinus rhythm with frequent premature ventricular complexes in a bigeminal pattern Low voltage QRS complexes limits interpretation Inferior infarct , age undetermined Possible Anterolateral infarct , age undetermined Likely similar to tracing done 11-25-18 Electronically Signed on 07-30-2020 8:55:25 EDT by Graham Madden
--- NOTE | 2020-07-30 12:15 | IPN ---
NEPHROLOGY PROGRESS NOTE DATE: 07/29/2020 SUBJECTIVE: Mr. Acosta is seen this morning on his bedside during hemodialysis. He is feeling well and denies any new complaints. His blood pressure was somewhat low during dialysis and we did not remove any fluid as a result. Patient denies any dyspnea, chest pain, nausea, vomiting, fever or chills. PHYSICAL EXAMINATION: Temperature 97.2 degrees Fahrenheit, heart rate 76 per minute, respiratory rate 18 per minute, blood pressure 159/67 mmHg, oxygen saturation 97% on room air. HEAD: Atraumatic. NECK: Supple and without jugular venous distention (JVD) or thyroid enlargement. Permacath is present on left upper chest. Infusaport on right chest is without any signs of infection. HEART SOUNDS: Regular. LUNGS: Diminished breath sounds on the left side. He has a PleurX catheter in the left chest. ABDOMEN: Soft and nontender. Bowel sounds are normal. EXTREMITIES: Without any cyanosis or clubbing. NEUROLOGIC: He is at his baseline mentation without a focal deficit. LABORATORY DATA: Today's labs show WBC up to 12.0, hemoglobin 9.9, hematocrit 33.1, platelets 187. Sodium 139, potassium 3.8, CO2 20, BUN 20, creatinine 3.59, glucose 73, calcium 7.8. PROBLEMS: 1. End-stage renal disease. Patient is being dialyzed today and he is tolerating dialysis well. We are not removing any net fluid due to low blood pressure. 2. Anemia. At present, anemia is stable and we will continue with weekly dose of Aranesp. No need for a transfusion. 3. Perforated viscus with intraabdominal fluid collection. Patient remains on Zosyn and currently afebrile. His white cell count increased slightly once again. His repeat CAT scan a few days ago did show improvement in the fluid collection. 4. Nutrition. Patient is tolerating a full liquid diet and it can be advanced as per hospitalist service and surgery. 5. Pancreatic cancer with metastatic disease and malignant left pleural effusion. This is a chronic issue for which he is not receiving any therapy. He has a PleurX catheter in his left chest to drain the pleural effusion.
--- NOTE | 2020-07-30 13:24 | IPNPDOC ---
Text Note Date of Service The patient was seen on 07/30/20. NOTE Subjective: -Tolerating full liquids. -Denies any abdominal pain or nausea -Having significant number of BMs, no N/V/fever -Had noted irregular heart beat yesterday and EKG showed [place], asymptomatic Objective: General: Alert, Cooperative, No Acute Distress Eyes: PERRLA, Conjunctiva & lids normal, EOMI ENT: Atraumatic, Tongue Midline, Nares Patent Neck: Supple, no JVD Chest: Clear to auscultation, diminished left base, has pleurx cath on the left Heart: Rate Normal, irregular, Normal S1, Normal S2, no murmur Abdomen: Hyperactive, soft, mild distension, nontender Extremities: no LE edema Psych: AOx3 Labs: Reviewed WBC 12 Hgb 9.9 Imaging: CT abd/pelvis showed 07/16/20 IMPRESSION: Small volume of extraluminal pneumoperitoneum in the anterior right mid abdomen with an adjacent dilated small bowel loops measuring up to 4 cm in diameter with inspissated enteric contents and dilatation of the adjacent bowel loop suggesting a focal small bowel obstruction. No obvious obstructing mass. Distention of the stomach with ingested material, and possible narrowing or stricture at the gastrojejunostomy anastomosis. CT abd and pelvis on 07/18/20 1. Small amount of pneumoperitoneum along the anterior right mid/upper abdomen essentially unchanged and certainly without increase. 2. The underlying small bowel pattern now demonstrates decreased distension suggesting mild progressive resolution to the previously suspected small-bowel obstruction. There is no evidence for acute obstruction and no ascites or drainable collection/abscess. 3. Chronic nonacute findings as noted above. 4. Lung base changes include stable left hydropneumothorax along with mildly in creased area of opacity, atelectasis and small pleural reaction at the right lung base. 07/26/20 CT abd showed Gradually decreasing and now quite minimal bubbles of free air in the right upper anterior abdomen. Persistent small bowel dilation in the central abdomen consistent with focal ileus versus some degree of obstruction. Assessment: 75 yr old smoker w metastatic pancreatic cancer with mets to lungs with a remote h/o a Whipple's procedure in 2000, last chemo in 2016 and refused any further chemotherapy in 2019, Chronic left sided hydropneumothorax with chronic pleurx catheter in place from 05/09/20, ESRD started on HD in may 2020, Perm cath placement on 05/27/20, chronic hypotension, Pulmonary HTN and recurrent SBOs who presented w n/v and abdominal pain and was found to have pneumoperitoneum, high up SBO and GI bleed that is all being medically managed with surgery following. Small bowel obstruction with contained perforation -Started having bowel movements on 07/24/20, now with diarrhea. Patient refused surgery at this time in view that his symptoms have improved -CT abdomen as above -on full liquids, will advance to soft. -On zosyn -Had TPN for 3 days GI Bleed with chronic anemia -The pt had melena likely due to the perforation -hb stable. -Continue PPI Increased number of soft formed BMs -likely 2/2 abx, unlikely C.diff, will monitor ESRD -possible chemo induced. -MWF via permacath -Nephro following Chronic hypotension -Midodrine Pancreatic adenocarcinoma with mets to the bilateral lung and chronic left hydropneumothorax. 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 Chronic left hydropneumothorax. 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 CT chest IMPRESSION: Increase in left-sided hydropneumothorax despite the presence of catheter. The fluid component has increased significantly, suggesting that the catheter may be occluded or not functioning properly. Stable appearance of multiple right lung cavitary lesions. CXR stable left hydropneumothorax, entrapped lung. Xrays reviewed by Dr Asif just shows entrapped lung which is never going to expand. As per him plerx catheter is not doing anything for the lung. He can go ahead with surgery if needed without any issues with the pleurex cath will continue with pleurx cath draining every other day. Debility / Deconditioning -The patient reports being weaker and not being able to walk up the stairs in his house w/o assistance after his recent hospital admission -PT/OT H/o Atrial fibrillation -Currently irregular with morbitz type 1, asymptomatic BPH: obstructive symptoms have improved. -Was not making much urine. But after TPN for 3 days started having more urine output. -U/A clean. DVT ppx: SCDs and TEDs VS,Fishbone, I+O VS, Fishbone, I+O Laboratory Tests 07/30/20 05:02 Vital Signs Date Time Temp Pulse Resp B/P (MAP) Pulse Ox O2 Delivery O2 Flow Rate FiO2 07/30/20 06:00 97.2 75 18 159/67 (97) 97 Room Air I&O- Last 24 Hours up to 6 AM 07/30/20 06:00 Intake Total 2220 ml Output Total 0 ml Balance 2220 ml MARY FRENCH MD Jul 30, 2020 08:28
[2020-07-30 14:00] VITALS: BP 145/76
[2020-07-30 22:00] VITALS: BP 146/62
[2020-07-31] MEDS: PIPERACILLIN/TAZOBACTAM SOD 2.25 GM in D5W MINI-BAG PLUS 50 ML IV SCH (05:07)
[2020-07-31 05:17] LABS: BASO # 0.1 10^3/uL (0.0-0.2); BASO % 0.5 % (0.0-1.0); EOS # 0.2 10^3/uL (0.0-0.5); EOS % 1.7 % (0.0-3.0); HEMATOCRIT 32.4 % (42.0-52.0); HEMOGLOBIN 9.8 g/dl (13.5-17.5); LYMPH # 0.9 10^3/uL (1.5-5.0); LYMPH % 7.2 % (24.0-44.0); MEAN CORPUSCULAR HEMOGLOBIN 29.5 pg (27.0-33.0); MEAN CORPUSCULAR HGB CONC 30.2 g/dl (32.0-36.5); MEAN CORPUSCULAR VOLUME 97.6 fl (80.0-96.0); MONO # 0.9 10^3/uL (0.0-0.8); MONO % 7.2 % (2.0-8.0); NEUTROPHILS # 10.1 10^3/uL (1.5-8.5); NEUTROPHILS % 82.6 % (36.0-66.0); PLATELET COUNT, AUTOMATED 202 10^3/uL (150-450); RED BLOOD COUNT 3.32 10^6/uL (4.30-6.10); WHITE BLOOD COUNT 12.2 10^3/uL (4.0-10.0)
[2020-07-31 06:00] VITALS: BP 138/73
[2020-07-31 06:08] LABS: CALCIUM LEVEL 7.6 MG/DL (8.8-10.2); CREATININE FOR GFR 3.09 MG/DL (0.70-1.30); POTASSIUM SERUM 3.9 MEQ/L (3.5-5.1)
[2020-07-31] MEDS: MIDODRINE 5 MG TAB PO SCH ×2 (08:00→14:00)
[2020-07-31 08:54] VITALS: BP 154/74
[2020-07-31] MEDS: PANTOPRAZOLE 40MG TAB (PROTONIX) PO SCH ×2 (08:58→20:59)
[2020-07-31] MEDS: SODIUM CHLORIDE 0.9% INJ 10 ML SYR IV SCH (09:00)
--- NOTE | 2020-07-31 09:35 | IPNPDOC ---
Text Note Date of Service The patient was seen on 07/31/20. NOTE Subjective: -Tolerating soft diet -Denies any abdominal pain or nausea -Having significant number of BMs, no N/V/fever. Formed Objective: General: Alert, Cooperative, No Acute Distress Eyes: PERRLA, Conjunctiva & lids normal, EOMI ENT: Atraumatic, Tongue Midline, Nares Patent Neck: Supple, no JVD Chest: Clear to auscultation, diminished left base, has pleurx cath on the left Heart: Rate Normal, irregular, Normal S1, Normal S2, no murmur Abdomen: Hyperactive, soft, mild distension, nontender Extremities: no LE edema Psych: AOx3 Labs: Reviewed WBC 12.2 Hgb 9.8 Imaging: CT abd/pelvis showed 07/16/20 IMPRESSION: Small volume of extraluminal pneumoperitoneum in the anterior right mid abdomen with an adjacent dilated small bowel loops measuring up to 4 cm in diameter with inspissated enteric contents and dilatation of the adjacent bowel loop suggesting a focal small bowel obstruction. No obvious obstructing mass. Distention of the stomach with ingested material, and possible narrowing or stricture at the gastrojejunostomy anastomosis. CT abd and pelvis on 07/18/20 1. Small amount of pneumoperitoneum along the anterior right mid/upper abdomen essentially unchanged and certainly without increase. 2. The underlying small bowel pattern now demonstrates decreased distension suggesting mild progressive resolution to the previously suspected small-bowel obstruction. There is no evidence for acute obstruction and no ascites or drainable collection/abscess. 3. Chronic nonacute findings as noted above. 4. Lung base changes include stable left hydropneumothorax along with mildly increased area of opacity, atelectasis and small pleural reaction at the right lung base. 07/26/20 CT abd showed Gradually decreasing and now quite minimal bubbles of free air in the right upper anterior abdomen. Persistent small bowel dilation in the central abdomen consistent with focal ileus versus some degree of obstruction. Assessment: 75 yr old smoker w metastatic pancreatic cancer with mets to lungs with a remote h/o a Whipple's procedure in 2000, last chemo in 2016 and refused any further chemotherapy in 2019, Chronic left sided hydropneumothorax with chronic pleurx catheter in place from 05/09/20, ESRD started on HD in may 2020, Perm cath placement on 05/27/20, chronic hypotension, Pulmonary HTN and recurrent SBOs who presented w n/v and abdominal pain and was found to have pneumoperitoneum, high up SBO and GI bleed that is all being medically managed with surgery following. Small bowel obstruction with contained perforation -Started having bowel movements on 07/24/20, now with frequent BMs, formed, suspect 2/2 abx. Patient refused surgery at this time in view that his symptoms have improved -CT abdomen as above -on soft diet -On zosyn -Had TPN for 3 days -will repeat CT A/P with rising WBC GI Bleed with chronic anemia -The pt had melena likely due to the perforation -hb stable. -Continue PPI Increased number of soft formed BMs -likely 2/2 abx, unlikely C.diff, will monitor ESRD -possible chemo induced. -MWF via permacath -Nephro following Chronic hypotension -Midodrine Pancreatic adenocarcinoma with mets to the bilateral lung and chronic left hydropneumothorax. 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 Chronic left hydropneumothorax. 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 CT chest IMPRESSION: Increase in left-sided hydropneumothorax despite the presence of catheter. The fluid component has increased significantly, suggesting that the catheter may be occluded or not functioning properly. Stable appearance of multiple right lung cavitary lesions. CXR stable left hydropneumothorax, entrapped lung. Xrays reviewed by Dr Asif just shows entrapped lung which is never going to expand. As per him plerx catheter is not doing anything for the lung. He can go ahead with surgery if needed without any issues with the pleurex cath will continue with pleurx cath draining every other day. Debility / Deconditioning -The patient reports being weaker and not being able to walk up the stairs in his house w/o assistance after his recent hospital admission -PT/OT H/o Atrial fibrillation -Currently irregular with morbitz type 1, asymptomatic BPH: obstructive symptoms have improved. -Was not making much urine. But after TPN for 3 days started having more urine output. -U/A clean. DVT ppx: SCDs and TEDs VS,Fishbone, I+O VS, Fishbone, I+O Laboratory Tests 07/31/20 05:06 Vital Signs Date Time Temp Pulse Resp B/P (MAP) Pulse Ox O2 Delivery O2 Flow Rate FiO2 07/31/20 08:54 154/74 (100) 07/31/20 06:00 97.5 74 17 97 Room Air I&O- Last 24 Hours up to 6 AM 07/31/20 06:00 Intake Total 175 ml Output Total 600 ml Balance -425 ml MARY FRENCH MD Jul 31, 2020 09:35
--- NOTE | 2020-07-31 10:50 | REP ---
INDICATION: f/u SBO and local perf COMPARISON: 07/26/2020 TECHNIQUE: Axial noncontrast images from the lung bases to the pubic symphysis with coronal and sagittal reformations. This CT examination was performed using the following dose reduction techniques: Automated exposure control, adjustment of mA and/or kv according to the patient's size, and use of iterative reconstruction technique. FINDINGS: Lung bases demonstrate left hydropneumothorax with chest tube suggested. Right base includes 3 cm rounded opacity in the posterior right lower lobe with adjacent small pleural effusion. Findings are similar to prior examination. Patient is again noted to be status post Whipple procedure with postsurgical changes in the right upper abdomen including pneumobilia and nonspecific mesenteric fat stranding similar to prior examination. Visualized liver, spleen, pancreas, bilateral adrenal glands and atrophic kidneys are stable and without acute process. The enteric system is without evidence for obstruction or acute inflammatory process. No evidence for pneumoperitoneum. The pelvis demonstrates relatively normal bladder and age-appropriate prostate/seminal vesicles. Small fat containing inguinal hernia noted. No ascites. No free air. No obvious significant adenopathy. Atherosclerotic changes to the aorta and vasculature again noted without aneurysm. Musculoskeletal structures demonstrate degenerative changes without acute osseous abnormality. IMPRESSION: 1. Previously noted small amount of pneumoperitoneum has resolved and there is no current evidence for bowel obstruction or perforation. 2. Chronic nonacute findings as described above including prior Whipple procedure. 3. No acute ascites, focal inflammatory stranding, pneumoperitoneum. <Electronically signed by David Green > 07/31/20 1046
--- NOTE | 2020-07-31 13:12 | IPN ---
NEPHROLOGY PROGRESS NOTE DATE: 07/31/2020 SUBJECTIVE: Mr. Acosta is seen this morning on his bedside. He is feeling well and denies any new complaints. He is still weak and wants to get physical therapy done. I spoke with the nursing staff and nursing staff has told me that patient has been declining when therapist comes. In any event, he went down for a repeat CAT scan this morning and it showed complete resolution of the pneumoperitoneum. Chronic nonacute findings are unchanged from prior surgery and there was no acute ascites or focal inflammatory issues noted. Patient was dialyzed yesterday and tolerated dialysis well. He denies any nausea or vomiting and has been tolerating his diet well. He has no dyspnea, chest pain or leg edema. PHYSICAL EXAMINATION: Temperature 97.5 degrees Fahrenheit, heart rate 74 per minute, respiratory rate 18 per minute, blood pressure 154/74 mmHg, oxygen saturation 97% on room air. HEAD: Atraumatic. NECK: Supple and without jugular venous distention (JVD) or thyroid enlargement. Dialysis catheter in front of left upper chest and shoulder is present. Infusaport is present in front of right chest. ABDOMEN: Soft and nontender. Bowel sounds are present. EXTREMITIES: Without any cyanosis or clubbing. SKIN: No rash or ulcers. NEUROLOGIC: He is awake and at his baseline mentation. LABORATORY DATA: Today's labs show WBC 12.2, hemoglobin 9.8, hematocrit 32.4, platelets 202. Sodium 139, potassium 3.9, CO2 22, BUN 15, creatinine 3.09, glucose 70, calcium 7.6. PROBLEMS: 1. End-stage renal disease. Patient was dialyzed yesterday and next dialysis will be scheduled for tomorrow. At present, his electrolytes are normal and volume status is well-compensated. There is no need for dialysis today. 2. Anemia. His anemia has been stable and we will continue with weekly dose of Aranesp 200 mcg. 3. Perforated viscus and intraabdominal fluid collection. It has improved and patient remains on ciprofloxacin 500 mg every 24 hours. 4. Hypotension. Patient has chronic hypotension and remains on chronic midodrine 5 mg three times a day.
[2020-07-31 14:00] VITALS: BP 152/70
[2020-07-31] MEDS: CIPROFLOXACIN 500MG TABLET PO SCH (17:39)
[2020-07-31 22:00] VITALS: BP 100/64
[2020-08-01] MEDS: SODIUM CHLORIDE 0.9% INJ 10 ML SYR IV PRN (05:18)
[2020-08-01 05:33] LABS: BASO # 0.1 10^3/uL (0.0-0.2); BASO % 0.4 % (0.0-1.0); EOS # 0.4 10^3/uL (0.0-0.5); EOS % 3.2 % (0.0-3.0); HEMATOCRIT 33.7 % (42.0-52.0); HEMOGLOBIN 10.2 g/dl (13.5-17.5); LYMPH # 0.8 10^3/uL (1.5-5.0); LYMPH % 6.6 % (24.0-44.0); MEAN CORPUSCULAR HEMOGLOBIN 29.6 pg (27.0-33.0); MEAN CORPUSCULAR HGB CONC 30.3 g/dl (32.0-36.5); MEAN CORPUSCULAR VOLUME 97.7 fl (80.0-96.0); MONO # 0.9 10^3/uL (0.0-0.8); MONO % 7.1 % (2.0-8.0); NEUTROPHILS # 9.9 10^3/uL (1.5-8.5); NEUTROPHILS % 81.6 % (36.0-66.0); PLATELET COUNT, AUTOMATED 199 10^3/uL (150-450); RED BLOOD COUNT 3.45 10^6/uL (4.30-6.10); WHITE BLOOD COUNT 12.1 10^3/uL (4.0-10.0)
[2020-08-01] MEDS: PANTOPRAZOLE 40MG TAB (PROTONIX) PO SCH ×2 (05:36→20:21)
[2020-08-01] MEDS: MIDODRINE 5 MG TAB PO SCH ×2 (05:38→15:31)
[2020-08-01 06:00] VITALS: BP 140/83
[2020-08-01 07:18] LABS: CALCIUM LEVEL 7.9 MG/DL (8.8-10.2); CREATININE FOR GFR 3.76 MG/DL (0.70-1.30); GLOMERULAR FILTRATION RATE 16.7 (>42); POTASSIUM SERUM 3.4 MEQ/L (3.5-5.1)
[2020-08-01] MEDS: SODIUM CHLORIDE 0.9% INJ 10 ML SYR IV SCH (08:08)
--- NOTE | 2020-08-01 09:46 | DS.PDOC ---
Discharge Summary General Date of Admission Jul 17, 2020 at 11:43 Date of Discharge 08/01/2020 Attending Physician: MARY FRENCH MD Discharge Summary PROCEDURES PERFORMED DURING STAY: None ADMITTING DIAGNOSES: Bowel perforation Pleural effusion SBO DISCHARGE DIAGNOSES: SBO Local contained bowel perforation Stage T3N1 pancreatic adenocarcinoma with mets to the lung and chronic left pleural effusion that is managed with a pigtail catheter Essential HTN Chemo induced ? ESRD on dialysis MWF via permacath (L AV fistula is not functioning) Pulmonary HTN PASP 37 (group 3 ?) Hx of Vitamin D deficiency History of recurrent SBOs Hiatal hernia BPH COMPLICATIONS/CHIEF COMPLAINT: Bowel Perforation Pleural Effusion,Small Bowel.... HISTORY OF PRESENT ILLNESS: 75-year-old man with a remote history of a Whipple procedure for pancreatic cancer approximately 20 years ago, prior chemo for metastatic pancreatic cancer with chronic L pleurX , ESRD on hemodialysis via a left subclavian dialysis catheter, with a known left hydropneumothorax from alveolopleural fistula and a PleurX catheter in place who presented with abdominal paint that developed on 07/13 and eventually worsened and became severe and he presented to the Emergency Department for evaluation. HOSPITAL COURSE: In the Emergency Department, he underwent a CT scan that showed some mildly dilated small bowel loops in the right upper quadrant with a minimal amount of free air adjacent to one of these loops. There were multiple postoperative changes noted associated with his Whipple procedure and surgery was consulted to evaluate for potential perforation and SBO. He was admitted to medicine and placed on zosyn, while nephrology was consulted to continue his HD. Surgery did not recommend immediately bringing to the OR for the apparent bowel perforation as he was HDS and had a minimal amount of free air, and surgery was not convinced that he had an obvious obstruction present as he had bowel sounds in all four quadrants with only some limited tenderness in the right upper quadrant. They recommended medical management with antibiotics and his exam improved with resolution of pain, tolerance of PO and eventual daily BMs. He had repeat imaging and on 07/31 CT A/P showed that the previously noted small amount of pneumoperitoneum had resolved and there was no current evidence for bowel obstruction or perforation. He is now being discharged the ARU. DISCHARGE MEDICATIONS: Please see below. ALLERGIES: Please see below. PHYSICAL EXAMINATION ON DISCHARGE: VITAL SIGNS: Please see below. General: Alert, Cooperative, No Acute Distress Eyes: PERRLA, Conjunctiva & lids normal, EOMI ENT: Atraumatic, Tongue Midline, Nares Patent Neck: Supple, no JVD Chest: Clear to auscultation, diminished left base, has pleurx cath on the left Heart: Rate Normal, irregular, Normal S1, Normal S2, no murmur Abdomen: Normoactive bowel sounds, soft, NTND Extremities: no LE edema Psych: AOx3 LABORATORY DATA: Please see below. IMAGING: CT abd/pelvis showed 07/16/20 IMPRESSION: Small volume of extraluminal pneumoperitoneum in the anterior right mid abdomen with an adjacent dilated small bowel loops measuring up to 4 cm in diameter with inspissated enteric contents and dilatation of the adjacent bowel loop suggesting a focal small bowel obstruction. No obvious obstructing mass. Distention of the stomach with ingested material, and possible narrowing or stricture at the gastrojejunostomy anastomosis. CT abd and pelvis on 07/18/20 1. Small amount of pneumoperitoneum along the anterior right mid/upper abdomen essentially unchanged and certainly without increase. 2. The underlying small bowel pattern now demonstrates decreased distension suggesting mild progressive resolution to the previously suspected small-bowel obstruction. There is no evidence for acute obstruction and no ascites or drai nable collection/abscess. 3. Chronic nonacute findings as noted above. 4. Lung base changes include stable left hydropneumothorax along with mildly increased area of opacity, atelectasis and small pleural reaction at the right lung base. 07/26/20 CT abd showed Gradually decreasing and now quite minimal bubbles of free air in the right upper anterior abdomen. Persistent small bowel dilation in the central abdomen consistent with focal ileus versus some degree of obstruction. 4/ CT A/P: Lung bases demonstrate left hydropneumothorax with chest tube suggested. Right base includes 3 cm rounded opacity in the posterior right lower lobe with adjacent small pleural effusion. Findings are similar to prior examination. Patient is again noted to be status post Whipple procedure with postsurgical changes in the right upper abdomen including pneumobilia and nonspecific mesenteric fat stranding similar to prior examination. Visualized liver, spleen, pancreas, bilateral adrenal glands and atrophic kidneys are stable and without acute process. The enteric system is without evidence for obstruction or acute inflammatory process. No evidence for pneumoperitoneum. The pelvis demonstrates relatively normal bladder and age-appropriate prostate/seminal vesicles. Small fat containing inguinal hernia noted. No ascites. No free air. No obvious significant adenopathy. Atherosclerotic changes to the aorta and vasculature again noted without aneurysm. Musculoskeletal structures demonstrate degenerative changes without acute osseous abnormality. IMPRESSION: 1. Previously noted small amount of pneumoperitoneum has resolved and there is no current evidence for bowel obstruction or perforation. 2. Chronic nonacute findings as described above including prior Whipple procedure. 3. No acute ascites, focal inflammatory stranding, pneumoperitoneum. PROGNOSIS: Good ACTIVITY: As tolerated DIET: Renal DISCHARGE PLAN: ARU DISPOSITION: ARU DISCHARGE INSTRUCTIONS: ARU ITEMS TO FOLLOWUP ON ON OUTPATIENT: Abdominal pain with recent local perf and SBO - PCP follow up post home dischar ge Oncology follow up Nephrology follow up DISCHARGE CONDITION: Stable TIME SPENT ON DISCHARGE: 46 minutes. Vital Signs/I&Os Vital Signs Date Time Temp Pulse Resp B/P (MAP) Pulse Ox O2 Delivery O2 Flow Rate FiO2 08/01/20 06:00 97.7 76 19 140/83 (102) 96 Room Air I&O- Last 24 Hours up to 6 AM 08/01/20 06:00 Intake Total 1020 ml Output Total 0 ml Balance 1020 ml Laboratory Data Labs 24H Laboratory Tests 2 08/01/20 05:23: Immature Granulocyte % (Auto) 1.1, Neutrophils (%) (Auto) 81.6H, Lymphocytes (%) (Auto) 6.6L, Monocytes (%) (Auto) 7.1, Eosinophils (%) (Auto) 3.2H, Basophils (%) (Auto) 0.4, Neutrophils # (Auto) 9.9H, Lymphocytes # (Auto) 0.8L, Monocytes # (Auto) 0.9H, Eosinophils # (Auto) 0.4, Basophils # (Auto) 0.1, Nucleated Red Blood Cells % (auto) 0.0, Anion Gap 9, Glomerular Filtration Rate 16.7L, Calcium Level 7.9L CBC/BMP Laboratory Tests 08/01/20 05:23 Discharge Medications Scheduled Apixaban (Eliquis) 2.5 Mg Tablet, 2.5 MG PO BID, (Reported) Aspirin (Aspirin EC) 81 Mg Tablet.dr, 81 MG PO DAILY, (Reported) Midodrine HCl (Midodrine HCl) 5 Mg Tablet, 5 MG PO BID, (Reported) Pantoprazole Sodium (Pantoprazole Sodium) 40 Mg Tablet.dr, 40 MG PO DAILY, (Reported) Miscellaneous Medications [Patient Comment] , (Reported) MED REC COMPLETED VIA EXTERNAL MED HISTORY AND PHONE CALL WITH SPOUSE Allergies Coded Allergies: No Known Allergies (Unverified , 07/27/18) MARY FRENCH MD Aug 01, 2020 09:25
[2020-08-01] MEDS: DARBEPOETIN 200MCG/0.4ML *DIALYSIS* SYRINGE (J0882 PER 1MCG) IV SCH (12:43)
[2020-08-01] MEDS ORDERED: POTASSIUM CHLORIDE 10 MEQ SR TABLET PO ONE (17:00)
--- NOTE | 2020-08-01 17:01 | IPN ---
NEPHROLOGY PROGRESS NOTE DATE: 08/01/2020 SUBJECTIVE: Mr. Acosta is seen this morning at his bedside. He is feeling well and denies any new complaints. He is anticipating transfer to the acute rehab floor. He did walk with the help of a walker and physical therapist. He denies any nausea or vomiting and is tolerating his diet. He is scheduled for hemodialysis later this afternoon. OBJECTIVE: PHYSICAL EXAMINATION: VITAL SIGNS: Temperature 97.7 degrees Fahrenheit, heart rate 76 per minute, respiratory rate 19 per minute, blood pressure 140/83 mm of mercury and oxygen saturation 96% on room air. HEENT: His head is atraumatic. NECK: Supple and without JVD or thyroid enlargement. Hemodialysis catheter is in the left upper chest near his shoulder. He has an infusaport on the right side just lateral to the midline. HEART: Regular. LUNGS: Diminished breath sounds in the left lower half. ABDOMEN: Soft and nontender and bowel sounds are normal. EXTREMITIES: Without any cyanosis or clubbing. NEUROLOGICAL: He is at his baseline mentation. LABORATORY STUDIES: Today's labs show a white blood cell count of 12.1, hemoglobin 10.2 and hematocrit 33.7, platelet count 199. Sodium 138, potassium 3.4, CO2 20, BUN 18 and creatinine 3.76, glucose 68 and calcium 7.9. PROBLEMS: 1. End-stage renal disease - The patient is scheduled for dialysis this afternoon. We will dialyze him for 3 hours. 2. Hypokalemia this is nutritional as he has not been eating very well. I am going to give him one dose of potassium chloride by mouth and we will also dialyze him with higher potassium bath. Electrolytes will be repleted again. 3. Anemia anemia has been stable and the patient will continue with weekly dose of Aranesp. 4. Metastatic pancreatic cancer with malignant left pleural effusion this is a chronic issue and the patient has received chemo in the past. At present he is just being monitored by Oncology. 5. Hypotension his blood pressure has been chronically low and he remains on Midodrine 5 mg twice daily. 6. Perforated viscus with abscess The patient seems to be doing well on oral Cipro now and will continue with the same.
[2020-08-01] MEDS: CIPROFLOXACIN 500MG TABLET PO SCH (17:14)
== END 2020-08-01 21:12 | DRG 393 ==
LOC: M ED 20:59 → M ED INP 07-17 11:43 → ENRESERV 07-17 12:06 → M PCU 07-17 13:04 → M MSPAV 07-19 17:33 → M PM&R 08-01 21:10 → M ED INP 08-01 21:11
PROVIDERS: ADMIT Internal Medicine Nephrology; ATTEND Internal Medicine
PROC: 5A1D70Z Performance of Urinary Filtration, Intermittent, Less than 6 Hours Per Day (ICD-10-PCS; principal; 2020-07-18)
PROC: 02HV33Z Insertion of Infusion Device into Superior Vena Cava, Percutaneous Approach (ICD-10-PCS; 2020-07-23)
PROC: 3E0436Z Introduction of Nutritional Substance into Central Vein, Percutaneous Approach (ICD-10-PCS; 2020-07-23)
DX: K63.1 Perforation of intestine (nontraumatic) (principal); N18.6 End stage renal disease; K56.609 Unspecified intestinal obstruction, unspecified as to partial versus complete obstruction; I12.0 Hypertensive chronic kidney disease with stage 5 chronic kidney disease or end stage renal disease; C25.9 Malignant neoplasm of pancreas, unspecified; C78.01 Secondary malignant neoplasm of right lung; K92.1 Melena; J94.8 Other specified pleural conditions; N25.81 Secondary hyperparathyroidism of renal origin; C78.02 Secondary malignant neoplasm of left lung; I47.2 Ventricular tachycardia; E46 Unspecified protein-calorie malnutrition; I27.20 Pulmonary hypertension, unspecified; E55.9 Vitamin D deficiency, unspecified; Z66 Do not resuscitate; K44.9 Diaphragmatic hernia without obstruction or gangrene; F17.200 Nicotine dependence, unspecified, uncomplicated; R53.81 Other malaise; D50.0 Iron deficiency anemia secondary to blood loss (chronic); I44.1 Atrioventricular block, second degree; N40.1 Benign prostatic hyperplasia with lower urinary tract symptoms; I48.91 Unspecified atrial fibrillation; D63.1 Anemia in chronic kidney disease; E87.6 Hypokalemia; R33.9 Retention of urine, unspecified; R35.0 Frequency of micturition; I95.89 Other hypotension; Z99.2 Dependence on renal dialysis; Z79.01 Long term (current) use of anticoagulants; Z79.82 Long term (current) use of aspirin; Z79.899 Other long term (current) drug therapy; T45.1X5A Adverse effect of antineoplastic and immunosuppressive drugs, initial encounter; Z20.822 Contact with and (suspected) exposure to COVID-19; Z92.3 Personal history of irradiation; Z92.21 Personal history of antineoplastic chemotherapy

== ENCOUNTER 2020-08-01 12:06 | Inpatient (IN) | payer MEDICARE ==
[~2020-08-01] VITALS: Ht 177.8 cm; Wt 72.4 kg
[~2020-08-01 12:06] MED LIST changes: +ASPI-161 PO; +MIDO5TA PO; +PATIENT COMMENT
[2020-08-01] MEDS ORDERED: ACETAMINOPHEN TAB 650MG DOSE (2X325MG) PO PRN (17:55)
[2020-08-01] MEDS ORDERED: BISACODYL 10 MG SUPP PR PRN (17:55)
[2020-08-01] MEDS: REMEDY PHYTOPLEX Z-GUARD PASTE 113GM TUBE (FROM STOREROOM PRODUCT) TOP SCH (21:00)
[2020-08-01] MEDS ORDERED: SENNA 8.6 MG TAB (SENOKOT) PO SCH (21:00)
[2020-08-01 21:10] VITALS: BP 135/69
[2020-08-01] MEDS: SUCRALFATE 1 GM TAB PO SCH (22:00)
[2020-08-01] MEDS: DOCUSATE SODIUM 100MG CAPSULE PO SCH (22:27)
[2020-08-02 06:20] VITALS: BP 116/59
[2020-08-02] MEDS: DOCUSATE SODIUM 100MG CAPSULE PO SCH (09:00)
[2020-08-02] MEDS: PANTOPRAZOLE 40MG TAB (PROTONIX) PO SCH ×2 (09:17→20:43)
[2020-08-02] MEDS: APIXABAN 2.5 MG TAB (ELIQUIS) PO SCH ×2 (09:17→20:43)
[2020-08-02] MEDS: SUCRALFATE 1 GM TAB PO SCH ×4 (09:17→20:43)
[2020-08-02] MEDS: MIDODRINE 5 MG TAB PO SCH ×2 (09:17→12:49)
[2020-08-02] MEDS: ASPIRIN 81MG ENTERIC TABLET PO SCH (09:17)
[2020-08-02] MEDS: REMEDY PHYTOPLEX Z-GUARD PASTE 113GM TUBE (FROM STOREROOM PRODUCT) TOP SCH ×3 (09:20→20:43)
--- NOTE | 2020-08-02 11:35 | HPEPDOC ---
Parachute Supervisor Note DATE OF ADMISSION: 08-01-20 DATE OF SERVICE: 08-02-20 TIME OF ADMISSION: Please refer to physician's admission order. SOURCE OF ADMISSION INFORMATION: [facility] record and patient CHIEF COMPLAINT: weakness in setting of pancreatic cancer and SBO HISTORY OF PRESENT ILLNESS: 75M pmh pancreatic cancer s/p Whipple procedure in 2000 with mets to lungs, chemo induced ESRD on HD started May 2020, chronic left sided hydropneumothorax with chronic pleurex catheter, hypotension on midodrine, AFib on eliquis, pulmonary HTN, BPH, recurrent SBOs, presented to [facility] ED on 07-17-20 complaining of abdominal pain and melena. CT abdomen/pelvis showed Small volume of extraluminal pneumoperitoneum in the anterior right mid abdomen with an adjacent dilated small bowel loops measuring up to 4 cm in diameter with inspissated enteric contents and dilatation of the adjacent bowel loop suggesting a focal small bowel obstruction. No obvious obstructing mass. Distention of the stomach with ingested material, and possible narrowing or stricture at the gastrojejunostomy anastomosis. He was started on IV antibi otics, received TPN, and evaluated by surgery, but opted not to get surgery as his symptoms began to improve. He was transitioned to soft diet and was able to pass BMs with follow-up CY abdomen/pelvis showing, Previously noted small amount of pneumoperitoneum has resolved and there is no current evidence for bowel obstruction or perforation. In addition he was noted to have large left sam- hydro pneumothorax for which Dr. Asif recommended continue drainage every other day. He remained weak, had mobility and ADL impairments and deemed medically appropriate for discharge to ARU on 08-01-20. REVIEW OF SYSTEMS: The following is a completed review of systems and has been reviewed. Review of systems otherwise unremarkable. PAIN: Patient self reports no pain EYES: No recent vision changes EARS, NOSE, & THROAT: No throat pain, or dysphagia, or rhinorrhea CARDIOVASCULAR: Denies chest pain or palpitations PULMONARY: Denies shortness of breath GASTROINTESTINAL: +loose stools GENITOURINARY: +oliguric MUSCULOSKELETAL: generalized weakness NEUROLOGICAL: denies paresthesias HEMATOLOGICAL: +anemic SKIN: scattered ecchymosis PSYCHIATRIC: Unremarkable All other review of systems found to be negative. PAST MEDICAL HISTORY: as per HPI PAST SURGICAL HISTORY: as per HPI ALLERGIES: Please see below. MEDICATIONS: Please see below. FAMILY HISTORY: Asthma SOCIAL HISTORY: Former smoking, no etoh/illicit drugs DIET: mechanical soft PHYSICAL EXAMINATION: VITAL SIGNS: Please see below. GENERAL: Pleasant and cooperative. No acute distress. HEENT: PERRL. Extraocular movements intact. Clear conjunctiva CARDIOVASCULAR: Regular rate and rhythm. No murmurs, rubs, or gallops LUNGS: Clear to auscultation on right side, decreased breath sounds left lung base, No wheezes. No rhonchi ABDOMEN: Soft, nontender, nondistended. Positive bowel sounds. Normal active bowel sounds NEUROLOGICAL: Alert and oriented times three. Cranial nerves II through XII grossly intact. Sensation grossly intact EXTREMITIES: 5\5 strength bilateral upper extremities. 5\5 strength right lower extremity. 5/5 strength in left lower extremity. Skin- right sided port, left chest wall permacath, left sided chest tube- all ana-skin c/d/i LABORATORY DATA: Please see below. IMAGING: Imaging documentation personally reviewed by record FUNCTIONAL STATUS: Premorbid: Modified Independent with all activities of daily life as well as mobility On Admission: contact guard bed mobility, dressing, toileting, ambulation GOALS: Mod-I bed mobility, ambulation household distances, dressing, bathing, toileting ASSESSMENT:75-year-old M with past medical history of pancreatic cancer s/p Whipple surgery and recurrent SBOs who presents status post recurrent SBO with pneumoperitonitis PLAN: 1. Rehab- PT/OT advance mobility and ADLs, strengthen/stretch.maintain ROM all 4 limbs 2. 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 resp- chronic left sided hydro-pneumothorax with chronic pleurex- drain q2d -Duonebs 4. GI- patient transitioned from IV Zosyn to Cipro for SBO, now off abx, on mechanical soft diet- monitor for worsening abdominal symptoms, trend crp and esr -hx of GI bleed, c/u protonix and sucralfate -loose stools will add metamucil prn 5. Onco- hx of metastatic pancreatic cancer- patient currently declining further chemotherapy 6. Heme- anemia due to GI bleed and ESRD, renal following and treating with aranesp, monitor H/H, transfuse if Hgb <8 7. DVT ppx- on eliquis, teds 8. Pain- tylenol prn 9. Dispo- TBD POST ADMISSION PHYSICIAN EVALUATION: Medical and functional status: Description of medical status, medical assessment: As above. Rehabilitation diagnosis and current and prior cold morbid medical conditions as above. Risk of complications and plans to mitigate them as above. Description of functional status current status is as above. Prior status as above. Status compared to preadmission: There are no clinically significant differences between the patient's current status and the information described on the preadmission screening document. Treatment plan anticipated: Treatment plan is as described above. Required disciplines including physical therapy, occupational therapy, others as noted above. Intensity of services: 3 hours a day, 6 days a week. Special considerations: There are no specific special or safety considerations that would likely preclude immediate implementation of an intensive rehabilitation program or subsequently influence the plan of care. ATTESTATION: Considering all the information above, it is my best judgment that this patient requires intensive rehabilitation therapy as described above and an inpatient hospital environment due to the complexity of nursing, medical, and rehabilitation needs required by the patient. Furthermore, this patient can reasonably be expected to participate in an benefit from an inpatient rehabilitation stay with an interdisciplinary team approach to the delivery of rehabilitation care under the direction and supervision of rehabilitation physician. PROGNOSIS: fair ESTIMATED LENGTH OF STAY:7-10 days. PROJECTED DISCHARGE DESTINATION: Home with family support and any durable medical equipment required to increase functional safety and mobility. TIME SPENT COUNSELING AND COORDINATING INITIAL CARE: Greater than 70 minutes. Vital Signs Vital Sign - Last 24 Hours 08/01/20 08/02/20 21:10 06:20 Temp 98.0 98.8 Pulse 88 82 Resp 18 18 B/P (MAP) 135/69 (91) 116/59 (78) Pulse Ox 95 96 O2 Delivery Room Air Room Air Home Medications Scheduled Apixaban (Eliquis) 2.5 Mg Tablet, 2.5 MG PO BID, (Reported) Aspirin (Aspirin EC) 81 Mg Tablet.dr, 81 MG PO DAILY, (Reported) Midodrine HCl (Midodrine HCl) 5 Mg Tablet, 5 MG PO BID, (Reported) Pantoprazole Sodium (Pantoprazole Sodium) 40 Mg Tablet.dr, 40 MG PO DAILY, (Reported) Allergies Coded Allergies: No Known Allergies (Unverified , 07/27/18) A-FIB/CHADSVASC A-FIB History Current/History of A-Fib/PAF?: Yes Current PO Anticoag Therapy: Yes LISANDRO LUEVANO MD Aug 02, 2020 11:34
[2020-08-02] MEDS ORDERED: METAMUCIL (PSYLLIUM) PACKET PO PRN (13:25)
--- NOTE | 2020-08-02 13:59 | IPNPDOC ---
Text Note Date of Service The patient was seen on 08/02/20. NOTE Subjective: -Tolerating regular diet -Denies any abdominal pain or nausea Objective: General: Alert, Cooperative, No Acute Distress Eyes: PERRLA, Conjunctiva & lids normal, EOMI ENT: Atraumatic, Tongue Midline, Nares Patent Neck: Supple, no JVD Chest: Clear to auscultation, diminished left base, has pleurx cath on the left Heart: Rate Normal, irregular, Normal S1, Normal S2, no murmur Abdomen: Hyperactive, soft, mild distension, nontender Extremities: no LE edema Psych: AOx3 Labs: Reviewed Imaging: no new imaging. Assessment: 75 yr old smoker w metastatic pancreatic cancer with mets to lungs with a remote h/o a Whipple's procedure in 2000, last chemo in 2016 and refused any further chemotherapy in 2019, Chronic left sided hydropneumothorax with chronic pleurx catheter in place from 05/09/20, ESRD started on HD in may 2020, Perm cath placement on 05/27/20, chronic hypotension, Pulmonary HTN and recurrent SBOs who presented w n/v and abdominal pain and was found to have pneumoperitoneum, high up SBO and GI bleed that was medically managed and resolved, now discharged to the ARU. Small bowel obstruction with contained perforation -Started having bowel movements on 07/24/20, now with frequent BMs, formed, suspect 2/2 abx, resolving now. Patient refused surgery at this time in view that his symptoms have improved -on regular diet -s/p course of abx GI Bleed with chronic anemia -The pt had melena likely due to the perforation -hb stable. -Continue PPI Increased number of soft formed BMs -likely 2/2 abx, unlikely C.diff, will monitor, now off abx -will start probiotic ESRD -possible chemo induced. -MWF via permacath -Nephro following on HD Chronic hypotension -Midodrine Pancreatic adenocarcinoma with mets to the bilateral lung and chronic left hydropneumothorax. 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 Chronic left hydropneumothorax. 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 CT chest IMPRESSION: Increase in left-sided hydropneumothorax despite the presence of catheter. The fluid component has increased significantly, suggesting that the catheter may be occluded or not functioning properly. Stable appearance of multiple right lung cavitary lesions. CXR stable left hydropneumothorax, entrapped lung. Xrays reviewed by Dr Asif just shows entrapped lung which is never going to expand. As per him plerx catheter is not doing anything for the lung. He can go ahead with surgery if needed without any issues with the pleurex cath will continue with pleurx cath draining every other day. Debility / Deconditioning -The patient reports being weaker and not being able to walk up the stairs in his house w/o assistance after his recent hospital admission -PT/OT per PM&R H/o Atrial fibrillation -Currently regular but recently had episode of irregular with morbitz type 1, asymptomatic -continue eliquis DVT ppx: SCDs and TEDs VS,Fishbone, I+O VS, Fishbone, I+O Vital Signs Date Time Temp Pulse Resp B/P (MAP) Pulse Ox O2 Delivery O2 Flow Rate FiO2 08/02/20 06:20 98.8 82 18 116/59 (78) 96 Room Air I&O- Last 24 Hours up to 6 AM 08/02/20 05:59 Intake Total 120 ml Balance 120 ml MARY FRENCH MD Aug 02, 2020 09:15
[2020-08-02 14:00] VITALS: BP 176/74
[2020-08-02] MEDS: IPRATROPIUM 0.5MG/ALBUTEROL 2.5MG INH SOL UD 3ML (DUONEB) NEB SCH ×2 (14:00→19:18)
[2020-08-02 16:46] LABS: BASO # 0.1 10^3/uL (0.0-0.2); BASO % 0.6 % (0.0-1.0); EOS # 0.1 10^3/uL (0.0-0.5); HEMATOCRIT 34.7 % (42.0-52.0); HEMOGLOBIN 10.2 g/dl (13.5-17.5); LYMPH # 0.8 10^3/uL (1.5-5.0); MEAN CORPUSCULAR HEMOGLOBIN 29.1 pg (27.0-33.0); MEAN CORPUSCULAR HGB CONC 29.4 g/dl (32.0-36.5); MEAN CORPUSCULAR VOLUME 98.9 fl (80.0-96.0); MONO # 0.8 10^3/uL (0.0-0.8); MONO % 7.1 % (2.0-8.0); NEUTROPHILS # 9.5 10^3/uL (1.5-8.5); NEUTROPHILS % 82.7 % (36.0-66.0); PLATELET COUNT, AUTOMATED 243 10^3/uL (150-450); RED BLOOD COUNT 3.51 10^6/uL (4.30-6.10); WHITE BLOOD COUNT 11.5 10^3/uL (4.0-10.0)
[2020-08-02 17:04] LABS: ERYTHROCYTE SEDIMENTATION RATE 47 mm/hr (0-20)
[2020-08-02] MEDS: SODIUM CHLORIDE 0.9% INJ 10 ML SYR IV PRN (17:11)
[2020-08-02] MEDS ORDERED: DARBEPOETIN 200MCG/0.4ML *DIALYSIS* SYRINGE (J0882 PER 1MCG) IV SCH (18:20)
--- NOTE | 2020-08-02 19:12 | IPN ---
NEPHROLOGY PROGRESS NOTE DATE: 08/02/2020 SUBJECTIVE: Patient was seen and examined at the bedside today morning. He is currently in the rehabilitation unit. He was transferred yesterday. He was dialyzed yesterday. He tolerated the dialysis procedure well. He denies any active complaints at this time. OBJECTIVE: VITAL SIGNS: Temperature 98.8 degrees Fahrenheit, blood pressure 116/59, pulse 82, respiratory rate 18, saturating 96% on room air. INTAKE AND OUTPUT: No urine output recorded. He was dialyzed yesterday. Weight in the bed scale is 70.3 kg yesterday. PHYSICAL EXAMINATION: GENERAL: Patient is awake, alert, oriented times three, weak and cachectic. HEAD AND NECK EXAM: Patient has bitemporal wasting. Mucous membranes are moist. Neck is supple. He has a tunneled hemodialysis catheter. CARDIOVASCULAR: S1, S2. Regular rate. No edema of the bilateral lower extremities. RESPIRATORY: He has a pleural catheter on the left side. ABDOMEN: Soft. Positive bowel sounds. Old surgical scars were noted. No tenderness at this time. MUSCULOSKELETAL: .No clubbing or cyanosis. Pulses are 2+. CENTRAL NERVOUS SYSTEM (PROCESS CONSULTANT): No focal deficits. Power is 5/5 in all extremities. LABORATORY REVIEW: CBC showed a WBC 11.5, hemoglobin 10.2, platelets 243. BMP is pending at this time. CURRENT INPATIENT MEDICATIONS: Patient's medications were all reviewed by myself. His Colace has been changes to as needed. He is Metamucil as needed for diarrhea. No other significant change in the medications. ASSESSMENT AND PLAN: 1. End-stage renal disease. Patient was dialyzed yesterday. Next hemodialysis will be done on Tuesday. 2. Anemia secondary to end-stage renal disease and gastrointestinal (GI) bleed. Hemoglobin is optimal at this time. I am going to start the patient on Aranesp with dialysis. 3. Recent small bowel obstruction and perforation. Patient was treated with nasogastric (NG) tube suctioning and antibiotics only. Pain is better. Management of diarrhea is as per medical team. 4. Chronic hypotension. Continue current dose of midodrine 5 mg by mouth three times a day. 5. Atrial fibrillation. Patient is anticoagulated with Eliquis. Heart rate is controlled at this time.
[2020-08-02 20:00] VITALS: BP 110/70
[2020-08-02] MEDS ORDERED: DOCUSATE SODIUM 100MG CAPSULE PO PRN (21:00)
[2020-08-02] MEDS ORDERED: SENNA 8.6 MG TAB (SENOKOT) PO PRN (21:00)
[2020-08-02 22:21] LABS: CALCIUM LEVEL 7.9 MG/DL (8.8-10.2); CREATININE FOR GFR 3.71 MG/DL (0.70-1.30); POTASSIUM SERUM 4.1 MEQ/L (3.5-5.1)
[2020-08-02 22:22] LABS: ALBUMIN 1.9 GM/DL (3.2-5.2); BILIRUBIN,TOTAL 0.2 MG/DL (0.2-1.0); C REACTIVE PROTEIN QUANTITATIV 4.36 MG/DL (0.00-0.30); TOTAL PROTEIN 5.8 GM/DL (6.4-8.2)
[2020-08-03 06:00] VITALS: BP 141/74
[2020-08-03] MEDS: IPRATROPIUM 0.5MG/ALBUTEROL 2.5MG INH SOL UD 3ML (DUONEB) NEB SCH ×3 (07:16→20:00)
[2020-08-03] MEDS: APIXABAN 2.5 MG TAB (ELIQUIS) PO SCH ×2 (07:48→21:00)
[2020-08-03] MEDS: SUCRALFATE 1 GM TAB PO SCH ×4 (07:48→20:59)
[2020-08-03] MEDS: MIDODRINE 5 MG TAB PO SCH ×2 (07:49→13:51)
[2020-08-03] MEDS: ASPIRIN 81MG ENTERIC TABLET PO SCH (07:49)
[2020-08-03] MEDS: PANTOPRAZOLE 40MG TAB (PROTONIX) PO SCH ×2 (07:49→21:00)
[2020-08-03] MEDS: SODIUM CHLORIDE 0.9% INJ 10 ML SYR IV SCH (07:50)
[2020-08-03] MEDS: REMEDY PHYTOPLEX Z-GUARD PASTE 113GM TUBE (FROM STOREROOM PRODUCT) TOP SCH ×3 (07:54→21:00)
[2020-08-03 14:00] VITALS: BP 132/64
[2020-08-03] MEDS: ONDANSETRON 4 MG ORAL DISINTEGRATING TAB PO PRN (19:42)
[2020-08-03 20:00] VITALS: BP 117/56
[2020-08-04 05:58] VITALS: BP 137/59
[2020-08-04] MEDS: IPRATROPIUM 0.5MG/ALBUTEROL 2.5MG INH SOL UD 3ML (DUONEB) NEB SCH ×3 (07:11→19:28)
[2020-08-04] MEDS: SUCRALFATE 1 GM TAB PO SCH ×4 (07:30→22:03)
[2020-08-04 07:58] VITALS: BP 119/69
[2020-08-04] MEDS: MIDODRINE 5 MG TAB PO SCH ×2 (08:00→14:00)
[2020-08-04] MEDS: ASPIRIN 81MG ENTERIC TABLET PO SCH (08:01)
[2020-08-04] MEDS: PANTOPRAZOLE 40MG TAB (PROTONIX) PO SCH ×2 (08:02→21:00)
[2020-08-04] MEDS: APIXABAN 2.5 MG TAB (ELIQUIS) PO SCH ×2 (08:02→22:03)
[2020-08-04] MEDS: SODIUM CHLORIDE 0.9% INJ 10 ML SYR IV SCH (10:23)
[2020-08-04] MEDS: REMEDY PHYTOPLEX Z-GUARD PASTE 113GM TUBE (FROM STOREROOM PRODUCT) TOP SCH ×3 (10:24→22:04)
[2020-08-04 11:18] LABS: BASO # 0.1 10^3/uL (0.0-0.2); BASO % 0.9 % (0.0-1.0); EOS # 0.1 10^3/uL (0.0-0.5); HEMATOCRIT 37.4 % (42.0-52.0); HEMOGLOBIN 11.2 g/dl (13.5-17.5); LYMPH # 0.5 10^3/uL (1.5-5.0); LYMPH % 5.5 % (24.0-44.0); MEAN CORPUSCULAR HEMOGLOBIN 29.6 pg (27.0-33.0); MEAN CORPUSCULAR HGB CONC 29.9 g/dl (32.0-36.5); MEAN CORPUSCULAR VOLUME 98.9 fl (80.0-96.0); MONO # 0.7 10^3/uL (0.0-0.8); MONO % 7.2 % (2.0-8.0); NEUTROPHILS # 8.3 10^3/uL (1.5-8.5); NEUTROPHILS % 83.8 % (36.0-66.0); PLATELET COUNT, AUTOMATED 297 10^3/uL (150-450); RED BLOOD COUNT 3.78 10^6/uL (4.30-6.10); WHITE BLOOD COUNT 9.9 10^3/uL (4.0-10.0)
[2020-08-04 11:42] LABS: CALCIUM LEVEL 8.5 MG/DL (8.8-10.2); CREATININE FOR GFR 5.04 MG/DL (0.70-1.30); GLOMERULAR FILTRATION RATE 11.9 (>42); POTASSIUM SERUM 4.8 MEQ/L (3.5-5.1)
--- NOTE | 2020-08-04 13:25 | IPNPDOC ---
Subjective General Date/Time Seen The patient was seen on 08/04/20 at 13:12. Subject Chief Complaint/History The patient is a 75-year-old male admitted with a reason for visit of Pancreatic Cancer. SUBJECTIVE: Mr. Acosta was seen and examined at the bedside this morning. He states he had a very difficult night and is complaining of nausea and diarrhea this morning. He denies any black or bloody stools. He does not feel that he is able to go to dialysis today. He denies any headaches, lightheadedness or dizziness. No fevers reported overnight and vitals were stable. OBJECTIVE: PHYSICAL EXAMINATION: VITAL SIGNS: see below GENERAL: alert and oriented, in no apparent distress, pleasant and conversant in full sentences. HEENT: PERRL, EOMI, Oral mucous membranes are moist without lesions. NECK: The patient has no noted JVD. No adenopathy is appreciated. No thyromegaly CHEST/LUNGS: There are decreased breath sounds in the left lower lobe, right side is clear to auscultation. CHEST WALL: PleurX catheter is dressed with gauze and is clean/dry/intact HEART: Irregularly irregular. No murmurs, rubs, or gallops are appreciated. Distal pulses are 2+. No carotid bruits appreciated. ABDOMEN: Soft, nontender, and nondistended. Bowel sounds are positive. No organomegaly is appreciated. No masses are appreciated. There are no peritoneal signs. There is no [place] sign. Old surgical scars are noted EXTREMITIES: No peripheral edema. There is no focal long bone tenderness or deformity. SKIN: The patients skin is warm and dry, without rashes or lesions. PSYCHIATRIC: AAO x 3, normal mood/affect NEUROLOGIC: No obvious focal deficits are appreciated IMAGING: No new imaging LABS: See below ASSESSMENT: This is a 75-year-old male with history of pancreatic cancer status post Whipple procedure with metastases to lungs and chronically recurring metastatic pleural effusion requiring drainage, end-stage renal disease on HD started May 2020, Sabra Lopez who first presented to [facility] on 07/17/2020 complaining of abdominal pain and melena. He was found to have pneumoperitoneum and underwent medical management, now admitted to the acute rehabilitation unit. PLAN: 1. End-stage renal disease on dialysis: -Will hold off on dialysis for today given patient's nausea and diarrhea -Plan for hemodialysis tomorrow 2. Diarrhea and nausea: No obvious signs of infection -Continue Zofran and symptomatic treatment as needed 3. Anemia secondary to end-stage renal disease and recent GI bleed: -Hemoglobin level improved today to 11.2 -Continue Aranesp with dialysis 4. Recent small bowel obstruction and perforation: -Status post antibiotic therapy. Abdomen not distended, no peritoneal signs today. 5. Chronic hypotension: Blood pressures have remained within normal limits -Continue Midodrine 5 mg by mouth 3 times daily 6. Atrial fibrillation: -Rate is controlled at this time -Continue Eliquis Disposition: Will continue hemodialysis therapy tomorrow Current Medications Current Medications Current Medications Medications (Trade) Dose Ordered Sig/Dejan Route PRN Reason Start Time Stop Time Status Last Admin Dose Admin Acetaminophen (Tylenol Tab) 650 mg Q4HP PRN PO fever/MILD PAIN (PS 1-4) 08/01/20 17:55 Albuterol/ Ipratropium (Duoneb (Ipr 0.5mg/Alb 2.5mg)) 3 ml RTID NEB 08/02/20 14:00 08/04/20 07:11 Apixaban (Eliquis) 2.5 mg BID PO 08/02/20 09:00 08/03/20 07:48 Aspirin (Ecotrin) 81 mg DAILY PO 08/02/20 09:00 08/03/20 07:49 Bisacodyl (Dulcolax Suppository) 10 mg DAILYPRN PRN IA CONSTIPATION 08/01/20 17:55 Darbepoetin Mert (Aranesp (Dialysis Use)) 200 mcg HD IV 08/02/20 18:20 Docusate Sodium (Colace) 100 mg BID PO 08/01/20 21:00 08/02/20 13:28 DC Docusate Sodium (Colace) 100 mg BID PRN PO constipation 08/02/20 21:00 Heparin Sodium (Heparin (Flush)) 500 units ASDIRECTED PRN IV SEE LABEL COMMENTS 08/02/20 14:00 08/02/20 17:11 Heparin Sodium (Heparin (Flush)) 500 units DAILY IV 08/03/20 09:00 08/04/20 10:23 Heparin Sodium (Heparin) Please refer to ... ASDIRECTED XX 08/04/20 07:00 08/05/20 06:59 Heparin Sodium (Heparin) dose as per volume indica... ASDIRECTED PRN IV SEE LABEL COMMENTS 08/04/20 07:00 08/04/20 11:49 DC Midodrine (Proamatine) 5 mg 0800,1400 PO 08/02/20 08:00 08/03/20 13:51 Ondansetron HCl (Zofran Odt) 4 mg Q4HP PRN PO NAUSEA OR VOMITING 08/01/20 17:55 08/03/20 19:42 Pantoprazole Sodium (Protonix) 40 mg BID PO 08/02/20 09:00 08/03/20 07:49 Psyllium Hydrophilic Mucilloid (Metamucil) 1 pkt DAILYPRN PRN PO diarrhea 08/02/20 13:25 Senna (Senokot) 1 tab QHS PO 08/01/20 21:00 08/02/20 13:28 DC Senna (Senokot) 1 tab QHS PRN PO constipation 08/02/20 21:00 Sodium Chloride (Saline Lock Flush) 10 ml ASDIRECTED PRN IV SEE LABEL COMMENTS 08/02/20 14:00 08/02/20 17:11 Sodium Chloride (Saline Lock Flush) 10 ml DAILY IV 08/03/20 09:00 08/04/20 10:23 Sucralfate (Carafate) 1 gm ACHS PO 08/01/20 21:00 08/03/20 17:04 Allergies Coded Allergies: No Known Allergies (Unverified , 07/27/18) VS,Fishbone, I+O VS, Fishbone, I+O Laboratory Tests 08/04/20 10:25 Vital Signs Date Time Temp Pulse Resp B/P (MAP) Pulse Ox O2 Delivery O2 Flow Rate FiO2 08/04/20 07:58 73 119/69 (86) 08/04/20 05:58 97.5 19 97 Room Air I&O- Last 24 Hours up to 6 AM 08/04/20 06:00 Intake Total 440 ml Balance 440 ml GME ATTESTATION GME ATTESTATION My faculty preceptor for this patient encounter was physically present during the encounter and was fully available. All aspects of the patient interview, examination, medical decision making process, and medical care plan development were reviewed and approved by the faculty preceptor. The faculty preceptor is aware and concurs with the plan as stated in the body of this note and will attest to such by his/her cosignature. Attending Note Attending Note Pt was seen with the resident. c/o nausea, vomit and diarrhea. s/p thoracentesis yesterday ~300 ml fluid removed. A/P ESRD on HD h/o Metastatic Ca Pancreas Recurrent Lt sided pleural effusion with Lt sided pigtail catheter. Hypotension Recent small bowel perf and obstruction Anemia in ESRD No HD today because of nausea and vomit. Electrolytes within acceptable range. LAURA GIRALDO MD Aug 04, 2020 13:25 LONG HIGGINS MD Aug 04, 2020 20:28
[2020-08-04 14:00] VITALS: BP 132/65
[2020-08-04 20:00] VITALS: BP 128/83
[2020-08-05 05:38] VITALS: BP 148/67
[2020-08-05] MEDS: SUCRALFATE 1 GM TAB PO SCH ×4 (07:30→20:27)
[2020-08-05] MEDS: APIXABAN 2.5 MG TAB (ELIQUIS) PO SCH ×2 (07:41→20:26)
[2020-08-05] MEDS: IPRATROPIUM 0.5MG/ALBUTEROL 2.5MG INH SOL UD 3ML (DUONEB) NEB SCH ×3 (08:00→20:42)
[2020-08-05] MEDS: MIDODRINE 5 MG TAB PO SCH ×2 (08:00→14:30)
[2020-08-05] MEDS: ASPIRIN 81MG ENTERIC TABLET PO SCH (08:23)
[2020-08-05] MEDS: PANTOPRAZOLE 40MG TAB (PROTONIX) PO SCH ×2 (08:23→20:27)
[2020-08-05] MEDS: REMEDY PHYTOPLEX Z-GUARD PASTE 113GM TUBE (FROM STOREROOM PRODUCT) TOP SCH ×3 (09:00→20:27)
[2020-08-05] MEDS ORDERED: ALTEPLASE 2MG/2ML VIAL XX ONE ×2 (12:40→13:00)
[2020-08-05 14:00] VITALS: BP 140/40
--- NOTE | 2020-08-05 14:04 | IPNPDOC ---
Subjective General Date/Time Seen The patient was seen on 08/05/20 at 12:53. Subject Chief Complaint/History The patient is a 75-year-old male admitted with a reason for visit of Pancreatic Cancer. SUBJECTIVE: Mr. Acosta was seen and examined at the bedside this morning. He states that he is still having some diarrhea but he is no longer nauseous or vomiting. He is agreeable to go to dialysis today. He will also have his Pleurx catheter drained this afternoon. He denies any shortness of breath, palpitations, abdominal pain at this time. No issues reported from overnight. OBJECTIVE: PHYSICAL EXAMINATION: VITAL SIGNS: see below GENERAL: alert and oriented, in no apparent distress, pleasant and conversant in full sentences. HEENT: PERRL, EOMI, Oral mucous membranes are moist without lesions. NECK: The patient has no noted JVD. No adenopathy is appreciated. No thyromegaly CHEST/LUNGS: There are decreased breath sounds in the left lower lobe, right side is clear to auscultation. CHEST WALL: PleurX catheter is dressed with gauze and surrounding area is clean/dry/intact HEART: Irregularly irregular. No murmurs, rubs, or gallops are appreciated. Distal pulses are 2+. No carotid bruits appreciated. ABDOMEN: Soft, nontender, and nondistended. Bowel sounds are positive. No organomegaly is appreciated. No masses are appreciated. There are no peritoneal signs. There is no [place] sign. Old surgical scars are noted EXTREMITIES: No peripheral edema. There is no focal long bone tenderness or deformity. SKIN: The patients skin is warm and dry, without rashes or lesions. PSYCHIATRIC: AAO x 3, normal mood/affect NEUROLOGIC: No obvious focal deficits are appreciated IMAGING: No new imaging LABS: See below ASSESSMENT: This is a 75-year-old male with history of pancreatic cancer status post Whipple procedure with metastases to lungs and chronically recurring metastatic pleural effusion requiring drainage, end-stage renal disease on HD started May 2020, Sabra Lopez who first presented to [facility] on 07/17/2020 complaining of abdominal pain and melena. He was found to have pneumoperitoneum and underwent medical management, now admitted to the acute rehabilitation unit. PLAN: 1. End-stage renal disease on dialysis: -Plan for hemodialysis today 2. Diarrhea and nausea: No obvious signs of infection -Continue Zofran and symptomatic treatment as needed 3. Anemia secondary to end-stage renal disease and recent GI bleed: -Hemoglobin level stable at 11.2 -Continue Aranesp with dialysis 4. Recent small bowel obstruction and perforation: -Status post antibiotic therapy. Abdomen not distended, no peritoneal signs today. 5. Chronic hypotension: Blood pressures have remained within normal limits -Continue Midodrine 5 mg by mouth 3 times daily 6. Atrial fibrillation: -Rate is controlled at this time -Continue Eliquis Disposition: Will continue hemodialysis therapy today and continue to monitor thereafter Current Medications Current Medications Current Medications Medications (Trade) Dose Ordered Sig/Dejan Route PRN Reason Start Time Stop Time Status Last Admin Dose Admin Acetaminophen (Tylenol Tab) 650 mg Q4HP PRN PO fever/MILD PAIN (PS 1-4) 08/01/20 17:55 Albuterol/ Ipratropium (Duoneb (Ipr 0.5mg/Alb 2.5mg)) 3 ml RTID NEB 08/02/20 14:00 08/04/20 14:01 Apixaban (Eliquis) 2.5 mg BID PO 08/02/20 09:00 08/05/20 07:41 Aspirin (Ecotrin) 81 mg DAILY PO 08/02/20 09:00 08/03/20 07:49 Bisacodyl (Dulcolax Suppository) 10 mg DAILYPRN PRN [place] CONSTIPATION 08/01/20 17:55 Darbepoetin Mert (Aranesp (Dialysis Use)) 200 mcg HD IV 08/02/20 18:20 Docusate Sodium (Colace) 100 mg BID PO 08/01/20 21:00 08/02/20 13:28 DC Docusate Sodium (Colace) 100 mg BID PRN PO constipation 08/02/20 21:00 Heparin Sodium (Heparin (Flush)) 500 units ASDIRECTED PRN IV SEE LABEL COMMENTS 08/02/20 14:00 08/02/20 17:11 Heparin Sodium (Heparin (Flush)) 500 units DAILY IV 08/03/20 09:00 08/04/20 10:23 Heparin Sodium (Heparin) Please refer to ... ASDIRECTED XX 08/04/20 07:00 08/05/20 06:59 DC Heparin Sodium (Heparin) dose as per volume indica... ASDIRECTED PRN IV SEE LABEL COMMENTS 08/04/20 07:00 08/04/20 11:49 DC Midodrine (Proamatine) 5 mg 0800,1400 PO 08/02/20 08:00 08/03/20 13:51 Ondansetron HCl (Zofran Odt) 4 mg Q4HP PRN PO NAUSEA OR VOMITING 08/01/20 17:55 08/03/20 19:42 Pantoprazole Sodium (Protonix) 40 mg BID PO 08/02/20 09:00 08/03/20 07:49 Psyllium Hydrophilic Mucilloid (Metamucil) 1 pkt DAILYPRN PRN PO diarrhea 08/02/20 13:25 Senna (Senokot) 1 tab QHS PO 08/01/20 21:00 08/02/20 13:28 DC Senna (Senokot) 1 tab QHS PRN PO constipation 08/02/20 21:00 Sodium Chloride (Saline Lock Flush) 10 ml ASDIRECTED PRN IV SEE LABEL COMMENTS 08/02/20 14:00 08/02/20 17:11 Sodium Chloride (Saline Lock Flush) 10 ml DAILY IV 08/03/20 09:00 08/04/20 10:23 Sucralfate (Carafate) 1 gm ACHS PO 08/01/20 21:00 08/03/20 17:04 Allergies Coded Allergies: No Known Allergies (Unverified , 07/27/18) VS,Fishbone, I+O VS, Fishbone, I+O Vital Signs Date Time Temp Pulse Resp B/P (MAP) Pulse Ox O2 Delivery O2 Flow Rate FiO2 08/05/20 05:38 98.1 76 18 148/67 (94) 96 Room Air I&O- Last 24 Hours up to 6 AM 08/05/20 06:00 Intake Total 1080 ml Balance 1080 ml GME ATTESTATION GME ATTESTATION My faculty preceptor for this patient encounter was physically present during the encounter and was fully available. All aspects of the patient interview, examination, medical decision making process, and medical care plan development were reviewed and approved by the faculty preceptor. The faculty preceptor is aware and concurs with the plan as stated in the body of this note and will attest to such by his/her cosignature. Attending Note Attending Note ESRd on HD Ca pancreas Nausea/diarrhea Recurrent Lt pl effusion HD today with no fluid removal. continue intermittent Lt sided pleural drainage. LAURA GIRALDO MD Aug 05, 2020 12:53 LONG HIGGINS MD Aug 05, 2020 21:43
[2020-08-05] MEDS: oxyCODONE 5MG TAB PO PRN ×2 (14:06→20:26)
[2020-08-05] MEDS: VANICREAM MOISTURIZING SKIN CREAM 113GM TUBE TOP SCH ×2 (15:15→20:28)
[2020-08-05] MEDS: SODIUM CHLORIDE 0.9% INJ 10 ML SYR IV SCH (16:54)
[2020-08-05 20:11] VITALS: BP 142/74
[2020-08-06] MEDS: oxyCODONE 5MG TAB PO PRN ×3 (03:30→15:00)
[2020-08-06 06:00] VITALS: BP 143/68
[2020-08-06 07:20] LABS: BASO # 0.1 10^3/uL (0.0-0.2); BASO % 0.9 % (0.0-1.0); EOS # 0.2 10^3/uL (0.0-0.5); HEMATOCRIT 35.6 % (42.0-52.0); HEMOGLOBIN 10.6 g/dl (13.5-17.5); LYMPH # 0.7 10^3/uL (1.5-5.0); LYMPH % 9.5 % (24.0-44.0); MEAN CORPUSCULAR HEMOGLOBIN 29.1 pg (27.0-33.0); MEAN CORPUSCULAR HGB CONC 29.8 g/dl (32.0-36.5); MEAN CORPUSCULAR VOLUME 97.8 fl (80.0-96.0); MONO # 0.6 10^3/uL (0.0-0.8); MONO % 8.6 % (2.0-8.0); NEUTROPHILS # 5.3 10^3/uL (1.5-8.5); NEUTROPHILS % 76.8 % (36.0-66.0); PLATELET COUNT, AUTOMATED 297 10^3/uL (150-450); RED BLOOD COUNT 3.64 10^6/uL (4.30-6.10); WHITE BLOOD COUNT 6.9 10^3/uL (4.0-10.0)
[2020-08-06] MEDS: SUCRALFATE 1 GM TAB PO SCH ×4 (07:30→20:31)
[2020-08-06] MEDS ORDERED: ALTEPLASE 2MG/2ML VIAL IV PRN ×2 (07:30)
[2020-08-06 07:46] LABS: ALBUMIN 1.8 GM/DL (3.2-5.2); CALCIUM LEVEL 8.2 MG/DL (8.8-10.2); CREATININE FOR GFR 5.71 MG/DL (0.70-1.30); GLOMERULAR FILTRATION RATE 10.3 (>42); PHOSPHORUS LEVEL 3.3 MG/DL (2.5-4.9); POTASSIUM SERUM 4.9 MEQ/L (3.5-5.1)
[2020-08-06] MEDS: MIDODRINE 5 MG TAB PO SCH ×2 (08:00→14:00)
[2020-08-06] MEDS: PANTOPRAZOLE 40MG TAB (PROTONIX) PO SCH ×2 (08:12→20:31)
[2020-08-06] MEDS: ASPIRIN 81MG ENTERIC TABLET PO SCH (08:12)
[2020-08-06] MEDS: VANICREAM MOISTURIZING SKIN CREAM 113GM TUBE TOP SCH ×2 (08:13→20:32)
[2020-08-06] MEDS: REMEDY PHYTOPLEX Z-GUARD PASTE 113GM TUBE (FROM STOREROOM PRODUCT) TOP SCH ×3 (08:13→20:31)
[2020-08-06] MEDS: SODIUM CHLORIDE 0.9% INJ 10 ML SYR IV SCH (10:06)
[2020-08-06] MEDS: IPRATROPIUM 0.5MG/ALBUTEROL 2.5MG INH SOL UD 3ML (DUONEB) NEB SCH ×3 (11:30→19:58)
--- NOTE | 2020-08-06 13:09 | IPNPDOC ---
PM&R Progress Note DATE OF SERVICE: Aug 05, 2020 Certified Caregiver Progress Note Subjective: Patient reporting he is having leg pain right worse than left, states it feels muscular and not in his bones. REVIEW OF SYSTEMS: The following is a completed review of systems and has been reviewed. Review of systems otherwise unremarkable. PAIN: Patient self reports no pain EYES: No recent vision changes EARS, NOSE, & THROAT: No throat pain, or dysphagia, or rhinorrhea CARDIOVASCULAR: Denies chest pain or palpitations PULMONARY: Denies shortness of breath GASTROINTESTINAL: +loose stools GENITOURINARY: +oliguric MUSCULOSKELETAL: generalized weakness NEUROLOGICAL: denies paresthesias HEMATOLOGICAL: +anemic SKIN: scattered ecchymosis PSYCHIATRIC: Unremarkable All other review of systems found to be negative. PHYSICAL EXAMINATION: VITAL SIGNS: Please see below. GENERAL: Pleasant and cooperative. No acute distress. HEENT: PERRL. Extraocular movements intact. Clear conjunctiva CARDIOVASCULAR: Regular rate and rhythm. No murmurs, rubs, or gallops LUNGS: Clear to auscultation on right side, decreased breath sounds left lung base, No wheezes. No rhonchi ABDOMEN: Soft, nontender, nondistended. Positive bowel sounds. Normal active bowel sounds NEUROLOGICAL: Alert and oriented times three. Cranial nerves II through XII grossly intact. Sensation grossly intact EXTREMITIES: 5\5 strength bilateral upper extremities. 5\5 strength right lower extremity. 5/5 strength in left lower extremity. Skin- right sided port, left chest wall permacath, left sided chest tube- all ana-skin c/d/i LABORATORY DATA: Please see below. ASSESSMENT:75-year-old M with past medical history of pancreatic cancer s/p Whipple surgery and recurrent SBOs who presents status post recurrent SBO with pneumoperitonitis PLAN: 1. Rehab- PT/OT advance mobility and ADLs, strengthen/stretch.maintain ROM all 4 limbs 2. 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 resp- chronic left sided hydro-pneumothorax with chronic pleurex- drain q2d -Duonebs 4. GI- patient transitioned from IV Zosyn to Cipro for SBO, now off abx, on mechanical soft diet- monitor for worsening abdominal symptoms, trend crp and esr -hx of GI bleed, c/u protonix and sucralfate -loose stools, c/u metamucil prn 5. Onco- hx of metastatic pancreatic cancer- patient currently declining further chemotherapy 6. Heme- anemia due to GI bleed and ESRD, renal following and treating with aranesp, monitor H/H, transfuse if Hgb <8 7. DVT ppx- on eliquis, teds 8. Pain- tylenol prn -patient reporting right>left non-radiating leg pain, will trial oxycodone prn 9. Dispo- TBD Allergies Coded Allergies: No Known Allergies (Unverified , 07/27/18) Vital Signs Vital Signs Date Time Temp Pulse Resp B/P (MAP) Pulse Ox O2 Delivery O2 Flow Rate FiO2 08/06/20 08:41 18 08/06/20 06:00 97.9 85 143/68 (93) 97 Room Air Laboratory Data CBC/BMP Laboratory Tests 08/06/20 07:07 Labs 24H Laboratory Tests 2 08/06/20 07:07: Immature Granulocyte % (Auto) 1.2, Neutrophils (%) (Auto) 76.8H, Lymphocytes (%) (Auto) 9.5L, Monocytes (%) (Auto) 8.6H, Eosinophils (%) (Auto) 3.0, Basophils (%) (Auto) 0.9, Neutrophils # (Auto) 5.3, Lymphocytes # (Auto) 0.7L, Monocytes # (Auto) 0.6, Eosinophils # (Auto) 0.2, Basophils # (Auto) 0.1, Nucleated Red Blood Cells % (auto) 0.3H, Anion Gap 6L, Glomerular Filtration Rate 10.3L, Calcium Level 8.2L, Phosphorus Level 3.3, Albumin 1.8L Current Medications Current Medications Current Medications Medications (Trade) Dose Ordered Sig/Dejan Route PRN Reason Start Time Stop Time Status Last Admin Dose Admin Acetaminophen (Tylenol Tab) 650 mg Q4HP PRN PO fever/MILD PAIN (PS 1-4) 08/01/20 17:55 Albuterol/ Ipratropium (Duoneb (Ipr 0.5mg/Alb 2.5mg)) 3 ml RTID NEB 08/02/20 14:00 08/05/20 20:42 Alteplase, Recombinant (Cathflo Activase) 2 mg ASDIRECTED PRN IV SEE LABEL COMMENTS 08/06/20 07:30 08/06/20 07:57 Alteplase, Recombinant (Cathflo Activase) 2 mg ASDIRECTED PRN IV SEE LABEL COMMENTS 08/06/20 07:30 08/06/20 07:57 Apixaban (Eliquis) 2.5 mg BID PO 08/02/20 09:00 Hold 08/05/20 20:26 Aspirin (Ecotrin) 81 mg DAILY PO 08/02/20 09:00 08/03/20 07:49 Bisacodyl (Dulcolax Suppository) 10 mg DAILYPRN PRN [place] CONSTIPATION 08/01/20 17:55 Darbepoetin Mert (Aranesp (Dialysis Use)) 200 mcg HD IV 08/02/20 18:20 Docusate Sodium (Colace) 100 mg BID PO 08/01/20 21:00 08/02/20 13:28 DC Docusate Sodium (Colace) 100 mg BID PRN PO constipation 08/02/20 21:00 Emollient Cream (Vanicream) apply to bilat LE BID TOP 08/05/20 09:00 08/06/20 08:13 Heparin Sodium (Heparin (Flush)) 500 units ASDIRECTED PRN IV SEE LABEL COMMENTS 08/02/20 14:00 08/02/20 17:11 Heparin Sodium (Heparin (Flush)) 500 units DAILY IV 08/03/20 09:00 08/06/20 10:06 Heparin Sodium (Heparin) Please refer to ... ASDIRECTED XX 08/04/20 07:00 08/05/20 06:59 DC Heparin Sodium (Heparin) dose as per volume indica... ASDIRECTED PRN IV SEE LABEL COMMENTS 08/04/20 07:00 08/04/20 11:49 DC Lidocaine (Lidoderm Patch) 2 patch DAILY TD 08/06/20 09:00 Midodrine (Proamatine) 5 mg 0800,1400 PO 08/02/20 08:00 08/03/20 13:51 Non-Formulary Medication ( See Comment Field Below ) REMOVE LIDODERM PATCH DAILY@21 XX 08/06/20 21:00 Ondansetron HCl (Zofran Odt) 4 mg Q4HP PRN PO NAUSEA OR VOMITING 08/01/20 17:55 08/03/20 19:42 Oxycodone HCl (Roxicodone, Oxyir) 5 mg Q4HP PRN PO PAIN 08/05/20 13:55 08/06/20 08:11 Pantoprazole Sodium (Protonix) 40 mg BID PO 08/02/20 09:00 08/03/20 07:49 Psyllium Hydrophilic Mucilloid (Metamucil) 1 pkt DAILYPRN PRN PO diarrhea 08/02/20 13:25 Senna (Senokot) 1 tab QHS PO 08/01/20 21:00 08/02/20 13:28 DC Senna (Senokot) 1 tab QHS PRN PO constipation 08/02/20 21:00 Sodium Chloride (Saline Lock Flush) 10 ml ASDIRECTED PRN IV SEE LABEL COMMENTS 08/02/20 14:00 08/02/20 17:11 Sodium Chloride (Saline Lock Flush) 10 ml DAILY IV 08/03/20 09:00 08/06/20 10:06 Sucralfate (Carafate) 1 gm ACHS PO 08/01/20 21:00 08/03/20 17:04 LISANDRO LUEVANO MD Aug 06, 2020 13:09
--- NOTE | 2020-08-06 13:13 | IPNPDOC ---
PM&R Progress Note DATE OF SERVICE: Aug 06, 2020 Risk Management Manager Progress Note Subjective: Patient stating the oxycodone is helping his leg pain minimally and is agreeable to trial of topical analgesic. He reports feeling short of breath and would like to try oxygen in therapy for comfort. REVIEW OF SYSTEMS: The following is a completed review of systems and has been reviewed. Review of systems otherwise unremarkable. PAIN: Patient self reports no pain EYES: No recent vision changes EARS, NOSE, & THROAT: No throat pain, or dysphagia, or rhinorrhea CARDIOVASCULAR: Denies chest pain or palpitations PULMONARY: Denies shortness of breath GASTROINTESTINAL: +loose stools (improved) GENITOURINARY: +oliguric MUSCULOSKELETAL: generalized weakness NEUROLOGICAL: denies paresthesias HEMATOLOGICAL: +anemic SKIN: scattered ecchymosis PSYCHIATRIC: Unremarkable All other review of systems found to be negative. PHYSICAL EXAMINATION: VITAL SIGNS: Please see below. GENERAL: Pleasant and cooperative. No acute distress. HEENT: PERRL. Extraocular movements intact. Clear conjunctiva CARDIOVASCULAR: Regular rate and rhythm. No murmurs, rubs, or gallops LUNGS: Clear to auscultation on right side, decreased breath sounds left lung base, No wheezes. No rhonchi ABDOMEN: Soft, nontender, nondistended. Positive bowel sounds. Normal active bowel sounds NEUROLOGICAL: Alert and oriented times three. Cranial nerves II through XII grossly intact. Sensation grossly intact EXTREMITIES: 5\5 strength bilateral upper extremities. 5\5 strength right lower extremity. 5/5 strength in left lower extremity. (-) SLR, no pain with interntal or external rotation of the hips, +TTP along the course of the right ITB Skin- right sided port, left chest wall permacath, left sided chest tube- all ana-skin c/d/i LABORATORY DATA: Please see below. ASSESSMENT:75-year-old M with past medical history of pancreatic cancer s/p Whipple surgery and recurrent SBOs who presents status post recurrent SBO with pneumoperitonitis PLAN: 1. Rehab- PT/OT advance mobility and ADLs, strengthen/stretch.maintain ROM all 4 limbs 2. 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 resp- chronic left sided hydro-pneumothorax with chronic pleurex- drain q2d -, for comfort while in therapy 4. GI- patient transitioned from IV Zosyn to Cipro for SBO, now off abx, on mechanical soft diet- monitor for worsening abdominal symptoms, trend crp and esr -hx of GI bleed, c/u protonix and sucralfate -loose stools, c/u metamucil prn 5. Onco- hx of metastatic pancreatic cancer- patient currently declining further chemotherapy 6. Heme- anemia due to GI bleed and ESRD, renal following and treating with aranesp, monitor H/H, transfuse if Hgb <8 7. DVT ppx- on eliquis, teds 8. Pain- tylenol prn -patient reporting right>left non-radiating leg pain, c/u oxycodone prn, will add lidoderm patch as well for suspected ITB tendinopathy 9. Dispo- TBD Allergies Coded Allergies: No Known Allergies (Unverified , 07/27/18) Vital Signs Vital Signs Date Time Temp Pulse Resp B/P (MAP) Pulse Ox O2 Delivery O2 Flow Rate FiO2 08/06/20 08:41 18 08/06/20 06:00 97.9 85 143/68 (93) 97 Room Air Laboratory Data CBC/BMP Laboratory Tests 08/06/20 07:07 Labs 24H Laboratory Tests 2 08/06/20 07:07: Immature Granulocyte % (Auto) 1.2, Neutrophils (%) (Auto) 76.8H, Lymphocytes (%) (Auto) 9.5L, Monocytes (%) (Auto) 8.6H, Eosinophils (%) (Auto) 3.0, Basophils (%) (Auto) 0.9, Neutrophils # (Auto) 5.3, Lymphocytes # (Auto) 0.7L, Monocytes # (Auto) 0.6, Eosinophils # (Auto) 0.2, Basophils # (Auto) 0.1, Nucleated Red Blood Cells % (auto) 0.3H, Anion Gap 6L, Glomerular Filtration Rate 10.3L, Calcium Level 8.2L, Phosphorus Level 3.3, Albumin 1.8L Current Medications Current Medications Current Medications Medications (Trade) Dose Ordered Sig/Dejan Route PRN Reason Start Time Stop Time Status Last Admin Dose Admin Acetaminophen (Tylenol Tab) 650 mg Q4HP PRN PO fever/MILD PAIN (PS 1-4) 08/01/20 17:55 Albuterol/ Ipratropium (Duoneb (Ipr 0.5mg/Alb 2.5mg)) 3 ml RTID NEB 08/02/20 14:00 08/05/20 20:42 Alteplase, Recombinant (Cathflo Activase) 2 mg ASDIRECTED PRN IV SEE LABEL COMMENTS 08/06/20 07:30 08/06/20 07:57 Alteplase, Recombinant (Cathflo Activase) 2 mg ASDIRECTED PRN IV SEE LABEL COMMENTS 08/06/20 07:30 08/06/20 07:57 Apixaban (Eliquis) 2.5 mg BID PO 08/02/20 09:00 Hold 08/05/20 20:26 Aspirin (Ecotrin) 81 mg DAILY PO 08/02/20 09:00 08/03/20 07:49 Bisacodyl (Dulcolax Suppository) 10 mg DAILYPRN PRN [place] CONSTIPATION 08/01/20 17:55 Darbepoetin Mert (Aranesp (Dialysis Use)) 200 mcg HD IV 08/02/20 18:20 Docusate Sodium (Colace) 100 mg BID PO 08/01/20 21:00 08/02/20 13:28 DC Docusate Sodium (Colace) 100 mg BID PRN PO constipation 08/02/20 21:00 Emollient Cream (Vanicream) apply to bilat LE BID TOP 08/05/20 09:00 08/06/20 08:13 Heparin Sodium (Heparin (Flush)) 500 units ASDIRECTED PRN IV SEE LABEL COMMENTS 08/02/20 14:00 08/02/20 17:11 Heparin Sodium (Heparin (Flush)) 500 units DAILY IV 08/03/20 09:00 08/06/20 10:06 Heparin Sodium (Heparin) Please refer to ... ASDIRECTED XX 08/04/20 07:00 08/05/20 06:59 DC Heparin Sodium (Heparin) dose as per volume indica... ASDIRECTED PRN IV SEE LABEL COMMENTS 08/04/20 07:00 08/04/20 11:49 DC Lidocaine (Lidoderm Patch) 2 patch DAILY TD 08/06/20 09:00 Midodrine (Proamatine) 5 mg 0800,1400 PO 08/02/20 08:00 08/03/20 13:51 Non-Formulary Medication ( See Comment Field Below ) REMOVE LIDODERM PATCH DAILY@21 XX 08/06/20 21:00 Ondansetron HCl (Zofran Odt) 4 mg Q4HP PRN PO NAUSEA OR VOMITING 08/01/20 17:55 08/03/20 19:42 Oxycodone HCl (Roxicodone, Oxyir) 5 mg Q4HP PRN PO PAIN 08/05/20 13:55 08/06/20 08:11 Pantoprazole Sodium (Protonix) 40 mg BID PO 08/02/20 09:00 08/03/20 07:49 Psyllium Hydrophilic Mucilloid (Metamucil) 1 pkt DAILYPRN PRN PO diarrhea 08/02/20 13:25 Senna (Senokot) 1 tab QHS PO 08/01/20 21:00 08/02/20 13:28 DC Senna (Senokot) 1 tab QHS PRN PO constipation 08/02/20 21:00 Sodium Chloride (Saline Lock Flush) 10 ml ASDIRECTED PRN IV SEE LABEL COMMENTS 08/02/20 14:00 08/02/20 17:11 Sodium Chloride (Saline Lock Flush) 10 ml DAILY IV 08/03/20 09:00 08/06/20 10:06 Sucralfate (Carafate) 1 gm ACHS PO 08/01/20 21:00 08/03/20 17:04 LISANDRO LUEVANO MD Aug 06, 2020 13:13
--- NOTE | 2020-08-06 13:27 | CR.PDOC ---
General Date of Consultation: Aug 06, [address] Mackenzie. HISTORY OF PRESENT ILLNESS: The patient is a 75-year-old male with multiple chronic medical issues on dialysis as per nephrology currently using PermCath for dialysis access. Apparently there have been issues with the patient's PermCath functioning and vascular surgery was consulted. ALLERGIES: Please see below. HOME MEDICATIONS: Please see below. PAST MEDICAL/ SURGICAL HISTORY: Stage T3N1 pancreatic adenocarcinoma with mets to the lung and chronic left pleural effusion that is managed with a pigtail catheter Essential HTN ESRD on dialysis MWF via Permcath (L AVG is non functioning) Pulmonary HTN Hx of Vitamin D deficiency Recurrent SBOs Hiatal hernia BPH FAMILY HISTORY: Uncontributory SOCIAL HISTORY: Former smoker PHYSICAL EXAMINATION: VITAL SIGNS: Please see below. GENERAL APPEARANCE: NAD Chest. Permcath with dressing intact. Ambulating in halls with physical therapy. PSYCHIATRIC: Pleasant and cooperative LABORATORY DATA: Please see below. ASSESSMENT/PLAN: ESRD/HD. Vascular surgeon surgery consulted as there has been issues with functioning of the patient's PermCath. Discussed PermCath replacement versus declot procedure with the patient. Reviewed the procedure, risks, benefits and alternatives. Informed consent is obtained and placed with the chart. Likely proceed later today as per Dr. Mackenzie. Vital Signs/I&O Vital Signs Date Time Temp Pulse Resp B/P (MAP) Pulse Ox O2 Delivery O2 Flow Rate FiO2 08/06/20 08:41 18 08/06/20 06:00 97.9 85 143/68 (93) 97 Room Air I&O- Last 24 Hours up to 6 AM 08/06/20 05:59 Intake Total 490 ml Output Total 250 ml Balance 240 ml Laboratory Data Labs 24H Laboratory Tests 2 08/06/20 07:07: Immature Granulocyte % (Auto) 1.2, Neutrophils (%) (Auto) 76.8H, Lymphocytes (%) (Auto) 9.5L, Monocytes (%) (Auto) 8.6H, Eosinophils (%) (Auto) 3.0, Basophils (%) (Auto) 0.9, Neutrophils # (Auto) 5.3, Lymphocytes # (Auto) 0.7L, Monocytes # (Auto) 0.6, Eosinophils # (Auto) 0.2, Basophils # (Auto) 0.1, Nucleated Red Blood Cells % (auto) 0.3H, Anion Gap 6L, Glomerular Filtration Rate 10.3L, Calcium Level 8.2L, Phosphorus Level 3.3, Albumin 1.8L CBC/BMP Laboratory Tests 08/06/20 07:07 Allergies Coded Allergies: No Known Allergies (Unverified , 07/27/18) Home Medications Scheduled Apixaban (Eliquis) 2.5 Mg Tablet, 2.5 MG PO BID, (Reported) Aspirin (Aspirin EC) 81 Mg Tablet.dr, 81 MG PO DAILY, (Reported) Midodrine HCl (Midodrine HCl) 5 Mg Tablet, 5 MG PO BID, (Reported) Pantoprazole Sodium (Pantoprazole Sodium) 40 Mg Tablet.dr, 40 MG PO DAILY, (Reported) Miscellaneous Medications [Patient Comment] , (Reported) MED REC COMPLETED VIA EXTERNAL MED HISTORY AND PHONE CALL WITH SPOUSE Chrissy Borden JESSICA Aug 06, 2020 13:27
[2020-08-06 14:00] VITALS: BP 143/78
[2020-08-06] MEDS: LIDOCAINE 5% (LIDODERM) PATCH TD SCH (15:00)
--- NOTE | 2020-08-06 15:55 | IPNPDOC ---
Subjective General Date/Time Seen The patient was seen on 08/06/20 at 15:46. Subject Chief Complaint/History The patient is a 75-year-old male admitted with a reason for visit of Pancreatic Cancer. SUBJECTIVE: Mr. Acosta was seen and examined at the bedside this morning. Dialysis nurse was attempting to use alteplase on his dialysis catheter as it was unable to be accessed for HD yesterday. The alteplase seemingly worked and the patient was able to undergo HD today. The patient reports he is feeling better this morning with no nausea/vomiting/diarrhea. OBJECTIVE: PHYSICAL EXAMINATION: VITAL SIGNS: see below GENERAL: alert and oriented, in no apparent distress, pleasant and conversant in full sentences. HEENT: PERRL, EOMI, Oral mucous membranes are moist without lesions. NECK: The patient has no noted JVD. No adenopathy is appreciated. No thyromegaly CHEST/LUNGS: There are decreased breath sounds in the left lower lobe, right side is clear to auscultation. CHEST WALL: PleurX catheter is dressed with gauze and surrounding area is clean/dry/intact HEART: Irregularly irregular. No murmurs, rubs, or gallops are appreciated. Distal pulses are 2+. No carotid bruits appreciated. ABDOMEN: Soft, nontender, and nondistended. Bowel sounds are positive. No organomegaly is appreciated. No masses are appreciated. There are no peritoneal signs. There is no [place] sign. Old surgical scars are noted EXTREMITIES: No peripheral edema. There is no focal long bone tenderness or deformity. SKIN: The patients skin is warm and dry, without rashes or lesions. PSYCHIATRIC: AAO x 3, normal mood/affect NEUROLOGIC: No obvious focal deficits are appreciated IMAGING: No new imaging LABS: See below ASSESSMENT: This is a 75-year-old male with history of pancreatic cancer status post Whipple procedure with metastases to lungs and chronically recurring metastatic pleural effusion requiring drainage, end-stage renal disease on HD started May 2020, Sabra Lopez who first presented to [facility] on 07/17/2020 complaining of abdominal pain and melena. He was found to have pneumoperitoneum and underwent medical management, now admitted to the acute rehabilitation unit. PLAN: 1. End-stage renal disease on dialysis: -Hemodialysis today -Vascular surgery consulted for clotted off dialysis line. It appears alteplase procedure worked. 2. Diarrhea and nausea: No obvious signs of infection -Appears to have resolved 3. Anemia secondary to end-stage renal disease and recent GI bleed: -Hemoglobin level stable at 10.6 -Continue Aranesp with dialysis 4. Recent small bowel obstruction and perforation: -Status post antibiotic therapy. Abdomen not distended, no peritoneal signs today. 5. Chronic hypotension: Blood pressures have remained within normal limits -Continue Midodrine 5 mg by mouth 3 times daily 6. Atrial fibrillation: -Rate is controlled at this time -Continue Eliquis Disposition: Hemodialysis today and continue to monitor thereafter Current Medications Current Medications Current Medications Medications (Trade) Dose Ordered Sig/Dejan Route PRN Reason Start Time Stop Time Status Last Admin Dose Admin Acetaminophen (Tylenol Tab) 650 mg Q4HP PRN PO fever/MILD PAIN (PS 1-4) 08/01/20 17:55 Albuterol/ Ipratropium (Duoneb (Ipr 0.5mg/Alb 2.5mg)) 3 ml RTID NEB 08/02/20 14:00 08/06/20 15:13 Alteplase, Recombinant (Cathflo Activase) 2 mg ASDIRECTED PRN IV SEE LABEL COMMENTS 08/06/20 07:30 08/06/20 07:57 Alteplase, Recombinant (Cathflo Activase) 2 mg ASDIRECTED PRN IV SEE LABEL COMMENTS 08/06/20 07:30 08/06/20 07:57 Apixaban (Eliquis) 2.5 mg BID PO 08/02/20 09:00 Hold 08/05/20 20:26 Aspirin (Ecotrin) 81 mg DAILY PO 08/02/20 09:00 08/03/20 07:49 Bisacodyl (Dulcolax Suppository) 10 mg DAILYPRN PRN [place] CONSTIPATION 08/01/20 17:55 Darbepoetin Mert (Aranesp (Dialysis Use)) 200 mcg HD IV 08/02/20 18:20 Docusate Sodium (Colace) 100 mg BID PO 08/01/20 21:00 08/02/20 13:28 DC Docusate Sodium (Colace) 100 mg BID PRN PO constipation 08/02/20 21:00 Emollient Cream (Vanicream) apply to bilat LE BID TOP 08/05/20 09:00 08/06/20 08:13 Heparin Sodium (Heparin (Flush)) 500 units ASDIRECTED PRN IV SEE LABEL COMMENTS 08/02/20 14:00 08/02/20 17:11 Heparin Sodium (Heparin (Flush)) 500 units DAILY IV 08/03/20 09:00 08/06/20 10:06 Heparin Sodium (Heparin) Please refer to ... ASDIRECTED XX 08/04/20 07:00 08/05/20 06:59 DC Heparin Sodium (Heparin) dose as per volume indica... ASDIRECTED PRN IV SEE LABEL COMMENTS 08/04/20 07:00 08/04/20 11:49 DC Lidocaine (Lidoderm Patch) 2 patch DAILY TD 08/06/20 09:00 08/06/20 15:00 Midodrine (Proamatine) 5 mg 0800,1400 PO 08/02/20 08:00 08/03/20 13:51 Non-Formulary Medication ( See Comment Field Below ) REMOVE LIDODERM PATCH DAILY@ XX 08/06/20 21:00 Ondansetron HCl (Zofran Odt) 4 mg Q4HP PRN PO NAUSEA OR VOMITING 08/01/20 17:55 08/03/20 19:42 Oxycodone HCl (Roxicodone, Oxyir) 5 mg Q4HP PRN PO PAIN 08/05/20 13:55 08/06/20 15:00 Pantoprazole Sodium (Protonix) 40 mg BID PO 08/02/20 09:00 08/03/20 07:49 Psyllium Hydrophilic Mucilloid (Metamucil) 1 pkt DAILYPRN PRN PO diarrhea 08/02/20 13:25 Senna (Senokot) 1 tab QHS PO 08/01/20 21:00 08/02/20 13:28 DC Senna (Senokot) 1 tab QHS PRN PO constipation 08/02/20 21:00 Sodium Chloride (Saline Lock Flush) 10 ml ASDIRECTED PRN IV SEE LABEL COMMENTS 08/02/20 14:00 08/02/20 17:11 Sodium Chloride (Saline Lock Flush) 10 ml DAILY IV 08/03/20 09:00 08/06/20 10:06 Sucralfate (Carafate) 1 gm ACHS PO 08/01/20 21:00 08/03/20 17:04 Allergies Coded Allergies: No Known Allergies (Unverified , 07/27/18) VS,Fishbone, I+O VS, Fishbone, I+O Laboratory Tests 08/06/20 07:07 Vital Signs Date Time Temp Pulse Resp B/P (MAP) Pulse Ox O2 Delivery O2 Flow Rate FiO2 08/06/20 15:30 16 08/06/20 06:00 97.9 85 143/68 (93) 97 Room Air I&O- Last 24 Hours up to 6 AM 08/06/20 06:00 Intake Total 490 ml Output Total 250 ml Balance 240 ml GME ATTESTATION GME ATTESTATION My faculty preceptor for this patient encounter was physically present during the encounter and was fully available. All aspects of the patient interview, examination, medical decision making process, and medical care plan development were reviewed and approved by the faculty preceptor. The faculty preceptor is aware and concurs with the plan as stated in the body of this note and will attest to such by his/her cosignature. Attending Note Attending Note ESRD on HD Malfunction of HD catheter Chronic and persistent Lt sided pleural effusion Nausea and diarrhea tPA repeat today and catheter worked. HD for clearance only. No fluid removal. Pleural drainage Q 48 hr. LAURA GIRALDO MD Aug 06, 2020 15:55 LONG HIGGINS MD Aug 06, 2020 22:32
[2020-08-06 20:00] VITALS: BP 107/56
[2020-08-06] MEDS: **NOTE PATIENT COMMENT** MISC XX SCH (20:32)
[2020-08-07] MEDS: oxyCODONE 5MG TAB PO PRN ×3 (06:16→22:25)
[2020-08-07 06:22] VITALS: BP 119/70
[2020-08-07] MEDS: IPRATROPIUM 0.5MG/ALBUTEROL 2.5MG INH SOL UD 3ML (DUONEB) NEB SCH ×3 (07:23→20:21)
[2020-08-07] MEDS: SUCRALFATE 1 GM TAB PO SCH ×4 (07:30→20:05)
[2020-08-07] MEDS: MIDODRINE 5 MG TAB PO SCH ×2 (08:00→13:27)
[2020-08-07] MEDS: PANTOPRAZOLE 40MG TAB (PROTONIX) PO SCH ×2 (09:00→20:05)
[2020-08-07] MEDS: APIXABAN 2.5 MG TAB (ELIQUIS) PO SCH ×2 (09:33→20:05)
[2020-08-07] MEDS: ASPIRIN 81MG ENTERIC TABLET PO SCH (09:33)
[2020-08-07] MEDS: SODIUM CHLORIDE 0.9% INJ 10 ML SYR IV SCH (09:34)
[2020-08-07] MEDS: REMEDY PHYTOPLEX Z-GUARD PASTE 113GM TUBE (FROM STOREROOM PRODUCT) TOP SCH ×3 (09:38→20:05)
[2020-08-07] MEDS: VANICREAM MOISTURIZING SKIN CREAM 113GM TUBE TOP SCH ×2 (09:39→20:06)
[2020-08-07] MEDS: LIDOCAINE 5% (LIDODERM) PATCH TD SCH (11:57)
--- NOTE | 2020-08-07 12:08 | IPNPDOC ---
PM&R Progress Note DATE OF SERVICE: Aug 07, 2020 [facility] [employer] Progress Note Subjective: Patient reporting his leg pain is better and that he will take carafate to prevent GI bleed while on eliquis and aspirin. REVIEW OF SYSTEMS: The following is a completed review of systems and has been reviewed. Review of systems otherwise unremarkable. PAIN: Patient self reports no pain EYES: No recent vision changes EARS, NOSE, & THROAT: No throat pain, or dysphagia, or rhinorrhea CARDIOVASCULAR: Denies chest pain or palpitations PULMONARY: Denies shortness of breath GASTROINTESTINAL: +loose stools (improved) GENITOURINARY: +oliguric MUSCULOSKELETAL: generalized weakness NEUROLOGICAL: denies paresthesias HEMATOLOGICAL: +anemic SKIN: scattered ecchymosis PSYCHIATRIC: Unremarkable All other review of systems found to be negative. PHYSICAL EXAMINATION: VITAL SIGNS: Please see below. GENERAL: Pleasant and cooperative. No acute distress. HEENT: PERRL. Extraocular movements intact. Clear conjunctiva CARDIOVASCULAR: Regular rate and rhythm. No murmurs, rubs, or gallops LUNGS: Clear to auscultation on right side, decreased breath sounds left lung base, No wheezes. No rhonchi ABDOMEN: Soft, nontender, nondistended. Positive bowel sounds. Normal active bowel sounds NEUROLOGICAL: Alert and oriented times three. Cranial nerves II through XII grossly intact. Sensation grossly intact EXTREMITIES: 5\5 strength bilateral upper extremities. 5\5 strength right lower extremity. 5/5 strength in left lower extremity. (-) SLR, no pain with interntal or external rotation of the hips, +TTP along the course of the right ITB Skin- right sided port, left chest wall permacath, left sided chest tube- all ana-skin c/d/i LABORATORY DATA: Please see below. ASSESSMENT:75-year-old M with past medical history of pancreatic cancer s/p Whipple surgery and recurrent SBOs who presents status post recurrent SBO with pneumoperitonitis PLAN: 1. Rehab- PT/OT advance mobility and ADLs, strengthen/stretch.maintain ROM all 4 limbs 2. 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 resp- chronic left sided hydro-pneumothorax with chronic pleurex- drain q2d -Duonebs, 02 for comfort while in therapy 4. GI- patient transitioned from IV Zosyn to Cipro for SBO, now off abx, on mechanical soft diet- monitor for worsening abdominal symptoms, trend crp and esr -hx of GI bleed, c/u protonix and sucralfate, patient refusing most meds, but agreed today to take sucralfate and tums to prevent gastric ulcers -loose stools, c/u metamucil prn 5. Onco- hx of metastatic pancreatic cancer- patient currently declining further chemotherapy 6. Heme- anemia due to GI bleed and ESRD, renal following and treating with aranesp, monitor H/H, transfuse if Hgb <8 7. DVT ppx- on eliquis, teds 8. Pain- tylenol prn -patient recently reporting right>left non-radiating leg pain, c/u oxycodone prn and lidoderm patch for suspected ITB tendinopathy-improving 9. Dispo- TBD Allergies Coded Allergies: No Known Allergies (Unverified , 07/27/18) Vital Signs Vital Signs Date Time Temp Pulse Resp B/P (MAP) Pulse Ox O2 Delivery O2 Flow Rate FiO2 08/07/20 06:46 18 08/07/20 06:22 97.5 84 119/70 (86) 97 Room Air Current Medications Current Medications Current Medications Medications (Trade) Dose Ordered Sig/Dejan Route PRN Reason Start Time Stop Time Status Last Admin Dose Admin Acetaminophen (Tylenol Tab) 650 mg Q4HP PRN PO fever/MILD PAIN (PS 1-4) 08/01/20 17:55 Albuterol/ Ipratropium (Duoneb (Ipr 0.5mg/Alb 2.5mg)) 3 ml RTID NEB 08/02/20 14:00 08/07/20 07:23 Alteplase, Recombinant (Cathflo Activase) 2 mg ASDIRECTED PRN IV SEE LABEL COMMENTS 08/06/20 07:30 08/06/20 07:57 Alteplase, Recombinant (Cathflo Activase) 2 mg ASDIRECTED PRN IV SEE LABEL COMMENTS 08/06/20 07:30 08/06/20 07:57 Apixaban (Eliquis) 2.5 mg BID PO 08/02/20 09:00 4/8/21 09:33 Aspirin (Ecotrin) 81 mg DAILY PO 08/02/20 09:00 08/07/20 09:33 Bisacodyl (Dulcolax Suppository) 10 mg DAILYPRN PRN [place] CONSTIPATION 08/01/20 17:55 Darbepoetin Mert (Aranesp (Dialysis Use)) 200 mcg HD IV 08/02/20 18:20 Docusate Sodium (Colace) 100 mg BID PO 08/01/20 21:00 08/02/20 13:28 DC Docusate Sodium (Colace) 100 mg BID PRN PO constipation 08/02/20 21:00 Emollient Cream (Vanicream) apply to bilat LE BID TOP 08/05/20 09:00 08/07/20 09:39 Heparin Sodium (Heparin (Flush)) 500 units ASDIRECTED PRN IV SEE LABEL COMMENTS 08/02/20 14:00 08/02/20 17:11 Heparin Sodium (Heparin (Flush)) 500 units DAILY IV 08/03/20 09:00 08/07/20 09:34 Heparin Sodium (Heparin) Please refer to ... ASDIRECTED XX 08/04/20 07:00 08/05/20 06:59 DC Heparin Sodium (Heparin) dose as per volume indica... ASDIRECTED PRN IV SEE LABEL COMMENTS 08/04/20 07:00 08/04/20 11:49 DC Lidocaine (Lidoderm Patch) 2 patch DAILY TD 08/06/20 09:00 08/07/20 11:57 Midodrine (Proamatine) 5 mg 0800,1400 PO 08/02/20 08:00 08/03/20 13:51 Non-Formulary Medication ( See Comment Field Below ) REMOVE LIDODERM PATCH DAILY@21 XX 08/06/20 21:00 08/06/20 20:32 Ondansetron HCl (Zofran Odt) 4 mg Q4HP PRN PO NAUSEA OR VOMITING 08/01/20 17:55 08/03/20 19:42 Oxycodone HCl (Roxicodone, Oxyir) 5 mg Q4HP PRN PO PAIN 08/05/20 13:55 08/07/20 06:16 Pantoprazole Sodium (Protonix) 40 mg BID PO 08/02/20 09:00 08/03/20 07:49 Psyllium Hydrophilic Mucilloid (Metamucil) 1 pkt DAILYPRN PRN PO diarrhea 08/02/20 13:25 Senna (Senokot) 1 tab QHS PO 08/01/20 21:00 08/02/20 13:28 DC Senna (Senokot) 1 tab QHS PRN PO constipation 08/02/20 21:00 Sodium Chloride (Saline Lock Flush) 10 ml ASDIRECTED PRN IV SEE LABEL COMMENTS 08/02/20 14:00 08/02/20 17:11 Sodium Chloride (Saline Lock Flush) 10 ml DAILY IV 08/03/20 09:00 08/07/20 09:34 Sucralfate (Carafate) 1 gm ACHS PO 08/01/20 21:00 08/07/20 11:56 LISANDRO LUEVANO MD Aug 07, 2020 12:08
[2020-08-07] MEDS: CALCIUM CARBONATE 500 MG CHEW U/D PO SCH ×2 (13:26→16:35)
[2020-08-07 14:00] VITALS: BP 120/70
--- NOTE | 2020-08-07 19:10 | IPNPDOC ---
Subjective General Date/Time Seen The patient was seen on 08/07/20 at 19:05. Subject Chief Complaint/History The patient is a 75-year-old male admitted with a reason for visit of Pancreatic Cancer. SUBJECTIVE: Mr. Acosta was seen and examined at the bedside this morning. He is feeling better today, no nausea, but does report some intermittent diarrhea and soft stool. He tolerated HD well yesterday. No other complaints this morning. OBJECTIVE: PHYSICAL EXAMINATION: VITAL SIGNS: see below GENERAL: alert and oriented, in no apparent distress, pleasant and conversant in full sentences. HEENT: PERRL, EOMI, Oral mucous membranes are moist without lesions. NECK: The patient has no noted JVD. No adenopathy is appreciated. No thyromegaly CHEST/LUNGS: There are decreased breath sounds in the left lower lobe, right side is clear to auscultation. CHEST WALL: PleurX catheter is dressed with gauze and surrounding area is clean/dry/intact HEART: Irregularly irregular. No murmurs, rubs, or gallops are appreciated. Distal pulses are 2+. No carotid bruits appreciated. ABDOMEN: Soft, nontender, and nondistended. Bowel sounds are positive. No organomegaly is appreciated. No masses are appreciated. There are no peritoneal signs. There is no [place] sign. Old surgical scars are noted EXTREMITIES: No peripheral edema. There is no focal long bone tenderness or deformity. SKIN: The patients skin is warm and dry, without rashes or lesions. PSYCHIATRIC: AAO x 3, normal mood/affect NEUROLOGIC: No obvious focal deficits are appreciated IMAGING: No new imaging LABS: See below ASSESSMENT: This is a 75-year-old male with history of pancreatic cancer status post Whipple procedure with metastases to lungs and chronically recurring metastatic pleural effusion requiring drainage, end-stage renal disease on HD started May 2020, A. regla on John who first presented to [facility] on 07/17/2020 complaining of abdominal pain and melena. He was found to have pneumoperitoneum and underwent medical management, now admitted to the acute rehabilitation unit. PLAN: 1. End-stage renal disease on dialysis: -Plan for Hemodialysis tomorrow -Vascular surgery consulted for clotted off dialysis line. It appears alteplase procedure worked. 2. Diarrhea and nausea: No obvious signs of infection -Appears to have resolved 3. Anemia secondary to end-stage renal disease and recent GI bleed: -Hemoglobin level stable at 10.6 -Continue Aranesp with dialysis 4. Recent small bowel obstruction and perforation: -Status post antibiotic therapy. Abdomen not distended, no peritoneal signs today. 5. Chronic hypotension: Blood pressures have remained within normal limits -Continue Midodrine 5 mg by mouth 3 times daily 6. Atrial fibrillation: -Rate is controlled at this time -Continue Eliquis 7. Pancreatic cancer, recurrent malignant pleural effusions: -PleurX drainage q48h Disposition: Hemodialysis tomorrow, pleural fluid drainage q48h Current Medications Current Medications Current Medications Medications (Trade) Dose Ordered Sig/Dejan Route PRN Reason Start Time Stop Time Status Last Admin Dose Admin Acetaminophen (Tylenol Tab) 650 mg Q4HP PRN PO fever/MILD PAIN (PS 1-4) 08/01/20 17:55 Albuterol/ Ipratropium (Duoneb (Ipr 0.5mg/Alb 2.5mg)) 3 ml RTID NEB 08/02/20 14:00 08/07/20 07:23 Alteplase, Recombinant (Cathflo Activase) 2 mg ASDIRECTED PRN IV SEE LABEL COMMENTS 08/06/20 07:30 08/06/20 07:57 Alteplase, Recombinant (Cathflo Activase) 2 mg ASDIRECTED PRN IV SEE LABEL COMMENTS 08/06/20 07:30 08/06/20 07:57 Apixaban (Eliquis) 2.5 mg BID PO 08/02/20 09:00 08/07/20 09:33 Aspirin (Ecotrin) 81 mg DAILY PO 08/02/20 09:00 08/07/20 09:33 Bisacodyl (Dulcolax Suppository) 10 mg DAILYPRN PRN [place] CONSTIPATION 08/01/20 17:55 Calcium Carbonate (Tums) 500 mg WM PO 08/07/20 12:30 08/07/20 13:26 Darbepoetin Mert (Aranesp (Dialysis Use)) 200 mcg HD IV 08/02/20 18:20 Docusate Sodium (Colace) 100 mg BID PO 08/01/20 21:00 08/02/20 13:28 DC Docusate Sodium (Colace) 100 mg BID PRN PO constipation 08/02/20 21:00 Emollient Cream (Vanicream) apply to samina LE BID TOP 08/05/20 09:00 08/07/20 09:39 Heparin Sodium (Heparin (Flush)) 500 units ASDIRECTED PRN IV SEE LABEL COMMENTS 08/02/20 14:00 08/02/20 17:11 Heparin Sodium (Heparin (Flush)) 500 units DAILY IV 08/03/20 09:00 08/07/20 09:34 Heparin Sodium (Heparin) Please refer to ... ASDIRECTED XX 08/04/20 07:00 08/05/20 06:59 DC Heparin Sodium (Heparin) dose as per volume indica... ASDIRECTED PRN IV SEE LABEL COMMENTS 08/04/20 07:00 08/04/20 11:49 DC Lidocaine (Lidoderm Patch) 2 patch DAILY TD 08/06/20 09:00 08/07/20 11:57 Midodrine (Proamatine) 5 mg 0800,1400 PO 08/02/20 08:00 08/03/20 13:51 Non-Formulary Medication ( See Comment Field Below ) REMOVE LIDODERM PATCH DAILY@ XX 08/06/20 21:00 08/06/20 20:32 Ondansetron HCl (Zofran Odt) 4 mg Q4HP PRN PO NAUSEA OR VOMITING 08/01/20 17:55 08/03/20 19:42 Oxycodone HCl (Roxicodone, Oxyir) 5 mg Q4HP PRN PO PAIN 08/05/20 13:55 08/07/20 18:02 Pantoprazole Sodium (Protonix) 40 mg BID PO 08/02/20 09:00 08/03/20 07:49 Psyllium Hydrophilic Mucilloid (Metamucil) 1 pkt DAILYPRN PRN PO diarrhea 08/02/20 13:25 Senna (Senokot) 1 tab QHS PO 08/01/20 21:00 08/02/20 13:28 DC Senna (Senokot) 1 tab QHS PRN PO constipation 08/02/20 21:00 Sodium Chloride (Saline Lock Flush) 10 ml ASDIRECTED PRN IV SEE LABEL COMMENTS 08/02/20 14:00 08/02/20 17:11 Sodium Chloride (Saline Lock Flush) 10 ml DAILY IV 08/03/20 09:00 08/07/20 09:34 Sucralfate (Carafate) 1 gm ACHS PO 08/01/20 21:00 08/07/20 11:56 Allergies Coded Allergies: No Known Allergies (Unverified , 07/27/18) VS,Fishbone, I+O VS, Fishbone, I+O Vital Signs Date Time Temp Pulse Resp B/P (MAP) Pulse Ox O2 Delivery O2 Flow Rate FiO2 08/07/20 18:35 18 Room Air 08/07/20 14:00 97.5 78 120/70 (87) 97 I&O- Last 24 Hours up to 6 AM 08/07/20 06:00 Intake Total 960 ml Output Total 200 ml Balance 760 ml GME ATTESTATION GME ATTESTATION My faculty preceptor for this patient encounter was physically present during the encounter and was fully available. All aspects of the patient interview, examination, medical decision making process, and medical care plan development were reviewed and approved by the faculty preceptor. The faculty preceptor is aware and concurs with the plan as stated in the body of this note and will attest to such by his/her cosignature. Attending Note Attending Note ESRD Pancreatic Cancer Recurrent persistent Lt pleural effusion HD tomorrow for clearance only. Minimal fluid removal. LAURA GIRALDO MD Aug 07, 2020 19:09 LONG HIGGINS MD Aug 07, 2020 22:57
[2020-08-07 20:10] VITALS: BP 113/64
[2020-08-07] MEDS: **NOTE PATIENT COMMENT** MISC XX SCH (20:10)
[2020-08-08] MEDS: oxyCODONE 5MG TAB PO PRN ×3 (04:30→22:18)
[2020-08-08 06:36] VITALS: BP 119/76
[2020-08-08] MEDS: IPRATROPIUM 0.5MG/ALBUTEROL 2.5MG INH SOL UD 3ML (DUONEB) NEB SCH ×3 (07:23→20:00)
[2020-08-08] MEDS: SUCRALFATE 1 GM TAB PO SCH ×4 (07:30→22:19)
[2020-08-08] MEDS: MIDODRINE 5 MG TAB PO SCH ×2 (08:00→14:00)
[2020-08-08] MEDS: CALCIUM CARBONATE 500 MG CHEW U/D PO SCH ×3 (08:00→17:43)
[2020-08-08] MEDS: ASPIRIN 81MG ENTERIC TABLET PO SCH (08:49)
[2020-08-08] MEDS: APIXABAN 2.5 MG TAB (ELIQUIS) PO SCH ×2 (08:50→22:18)
[2020-08-08] MEDS: PANTOPRAZOLE 40MG TAB (PROTONIX) PO SCH ×2 (08:51→22:19)
[2020-08-08] MEDS: SODIUM CHLORIDE 0.9% INJ 10 ML SYR IV SCH (08:51)
[2020-08-08] MEDS: VANICREAM MOISTURIZING SKIN CREAM 113GM TUBE TOP SCH ×2 (08:52→22:20)
[2020-08-08] MEDS: REMEDY PHYTOPLEX Z-GUARD PASTE 113GM TUBE (FROM STOREROOM PRODUCT) TOP SCH ×3 (08:52→22:20)
[2020-08-08] MEDS: LIDOCAINE 5% (LIDODERM) PATCH TD SCH (08:52)
--- NOTE | 2020-08-08 12:43 | IPNPDOC ---
Subjective General Date/Time Seen The patient was seen on 08/08/20 at 12:41. Subject Chief Complaint/History The patient is a 75-year-old male admitted with a reason for visit of Pancreatic Cancer. SUBJECTIVE: Mr. Acosta was seen and examined at the bedside this morning. He is feeling better today, no nausea or diarrhea. He will go for HD treatment today for clearance only, no fluid removal. OBJECTIVE: PHYSICAL EXAMINATION: VITAL SIGNS: see below GENERAL: alert and oriented, in no apparent distress, pleasant and conversant in full sentences. HEENT: PERRL, EOMI, Oral mucous membranes are moist without lesions. NECK: The patient has no noted JVD. No adenopathy is appreciated. No thyromegaly CHEST/LUNGS: There are decreased breath sounds in the left lower lobe, right side is clear to auscultation. CHEST WALL: PleurX catheter is dressed with gauze and surrounding area is clean/dry/intact HEART: Irregularly irregular. No murmurs, rubs, or gallops are appreciated. Distal pulses are 2+. No carotid bruits appreciated. ABDOMEN: Soft, nontender, and nondistended. Bowel sounds are positive. No organomegaly is appreciated. No masses are appreciated. There are no peritoneal signs. There is no Oakley sign. Old surgical scars are noted EXTREMITIES: No peripheral edema. There is no focal long bone tenderness or deformity. SKIN: The patients skin is warm and dry, without rashes or lesions. PSYCHIATRIC: AAO x 3, normal mood/affect NEUROLOGIC: No obvious focal deficits are appreciated IMAGING: No new imaging LABS: See below ASSESSMENT: This is a 75-year-old male with history of pancreatic cancer status post Whipple procedure with metastases to lungs and chronically recurring metastatic pleural effusion requiring drainage, end-stage renal disease on HD started May 2020, A. regla on [facility] who first presented to [facility] on 07/17/2020 complaining of abdominal pain and melena. He was found to have pneumoperitoneum and underwent medical management, now admitted to the acute rehabilitation unit. PLAN: 1. End-stage renal disease on dialysis: -Plan for Hemodialysis today for clearance only, no fluid removal -Vascular surgery consulted for clotted off dialysis line. It appears alteplase procedure worked. 2. Diarrhea and nausea: No obvious signs of infection -Appears to have resolved 3. Anemia secondary to end-stage renal disease and recent GI bleed: -Hemoglobin level stable at 10.6 -Continue Aranesp with dialysis 4. Recent small bowel obstruction and perforation: -Status post antibiotic therapy. Abdomen not distended, no peritoneal signs today. 5. Chronic hypotension: Blood pressures have remained within normal limits -Continue Midodrine 5 mg by mouth 3 times daily 6. Atrial fibrillation: -Rate is controlled at this time -Continue Eliquis 7. Pancreatic cancer, recurrent malignant pleural effusions: -PleurX drainage q48h Disposition: Hemodialysis today Current Medications Current Medications Current Medications Medications (Trade) Dose Ordered Sig/Dejan Route PRN Reason Start Time Stop Time Status Last Admin Dose Admin Acetaminophen (Tylenol Tab) 650 mg Q4HP PRN PO fever/MILD PAIN (PS 1-4) 08/01/20 17:55 Albuterol/ Ipratropium (Duoneb (Ipr 0.5mg/Alb 2.5mg)) 3 ml RTID NEB 08/02/20 14:00 08/08/20 07:23 Alteplase, Recombinant (Cathflo Activase) 2 mg ASDIRECTED PRN IV SEE LABEL COMMENTS 08/06/20 07:30 08/06/20 07:57 Alteplase, Recombinant (Cathflo Activase) 2 mg ASDIRECTED PRN IV SEE LABEL COMMENTS 08/06/20 07:30 08/06/20 07:57 Apixaban (Eliquis) 2.5 mg BID PO 08/02/20 09:00 08/08/20 08:50 Aspirin (Ecotrin) 81 mg DAILY PO 08/02/20 09:00 08/08/20 08:49 Bisacodyl (Dulcolax Suppository) 10 mg DAILYPRN PRN [place] CONSTIPATION 08/01/20 17:55 Calcium Carbonate (Tums) 500 mg WM PO 08/07/20 12:30 08/07/20 13:26 Darbepoetin Mert (Aranesp (Dialysis Use)) 200 mcg HD IV 08/02/20 18:20 Docusate Sodium (Colace) 100 mg BID PO 08/01/20 21:00 08/02/20 13:28 DC Docusate Sodium (Colace) 100 mg BID PRN PO constipation 08/02/20 21:00 Emollient Cream (Vanicream) apply to samina AG BID TOP 08/05/20 09:00 08/07/20 09:39 Heparin Sodium (Heparin (Flush)) 500 units ASDIRECTED PRN IV SEE LABEL COMMENTS 08/02/20 14:00 08/02/20 17:11 Heparin Sodium (Heparin (Flush)) 500 units DAILY IV 08/03/20 09:00 08/08/20 08:51 Heparin Sodium (Heparin) Please refer to ... ASDIRECTED XX 08/04/20 07:00 08/05/20 06:59 DC Heparin Sodium (Heparin) Please refer to ... ASDIRECTED XX 08/08/20 07:25 08/09/20 07:24 Heparin Sodium (Heparin) dose as per volume indica... ASDIRECTED PRN IV SEE LABEL COMMENTS 08/04/20 07:00 08/04/20 11:49 DC Heparin Sodium (Heparin) dose as per volume indica... ASDIRECTED PRN IV SEE LABEL COMMENTS 08/08/20 07:25 08/09/20 07:24 Lidocaine (Lidoderm Patch) 2 patch DAILY TD 08/06/20 09:00 08/08/20 08:52 Midodrine (Proamatine) 5 mg 0800,1400 PO 08/02/20 08:00 08/03/20 13:51 Non-Formulary Medication ( See Comment Field Below ) REMOVE LIDODERM PATCH DAILY@21 XX 08/06/20 21:00 08/07/20 20:10 Ondansetron HCl (Zofran Odt) 4 mg Q4HP PRN PO NAUSEA OR VOMITING 08/01/20 17:55 08/03/20 19:42 Oxycodone HCl (Roxicodone, Oxyir) 5 mg Q4HP PRN PO PAIN 08/05/20 13:55 08/08/20 08:50 Pantoprazole Sodium (Protonix) 40 mg BID PO 08/02/20 09:00 08/03/20 07:49 Psyllium Hydrophilic Mucilloid (Metamucil) 1 pkt DAILYPRN PRN PO diarrhea 08/02/20 13:25 Senna (Senokot) 1 tab QHS PO 08/01/20 21:00 08/02/20 13:28 DC Senna (Senokot) 1 tab QHS PRN PO constipation 08/02/20 21:00 Sodium Chloride (Saline Lock Flush) 10 ml ASDIRECTED PRN IV SEE LABEL COMMENTS 08/02/20 14:00 08/02/20 17:11 Sodium Chloride (Saline Lock Flush) 10 ml DAILY IV 08/03/20 09:00 08/08/20 08:51 Sucralfate (Carafate) 1 gm ACHS PO 08/01/20 21:00 08/07/20 11:56 Allergies Coded Allergies: No Known Allergies (Unverified , 07/27/18) VS,Fishbone, I+O VS, Fishbone, I+O Vital Signs Date Time Temp Pulse Resp B/P (MAP) Pulse Ox O2 Delivery O2 Flow Rate FiO2 08/08/20 08:50 18 Room Air 08/08/20 06:36 97.7 80 119/76 (90) 96 I&O- Last 24 Hours up to 6 AM 08/08/20 06:00 Intake Total 490 ml Output Total 350 ml Balance 140 ml GME ATTESTATION GME ATTESTATION My faculty preceptor for this patient encounter was physically present during the encounter and was fully available. All aspects of the patient interview, examination, medical decision making process, and medical care plan development were reviewed and approved by the faculty preceptor. The faculty preceptor is aware and concurs with the plan as stated in the body of this note and will attest to such by his/her cosignature. Attending Note Attending Note ESRD on HD Ca pancreas with malignant pleural effusion Cancer Cachexia Anemia in ESRD HD today. No fluid removal. Cont rest of medications. LAURA GIRALDO MD Aug 08, 2020 12:43 LONG HIGGINS MD Aug 08, 2020 22:01
[2020-08-08 14:00] VITALS: BP 107/61
--- NOTE | 2020-08-08 14:34 | IPNPDOC ---
PM&R Progress Note DATE OF SERVICE: Aug 08, 2020 Seaming Machine Operator Progress Note Subjective: Patient reporting he feels fatigued, but is able to participate in therapy. REVIEW OF SYSTEMS: The following is a completed review of systems and has been reviewed. Review of systems otherwise unremarkable. PAIN: Patient self reports no pain EYES: No recent vision changes EARS, NOSE, & THROAT: No throat pain, or dysphagia, or rhinorrhea CARDIOVASCULAR: Denies chest pain or palpitations PULMONARY: Denies shortness of breath GASTROINTESTINAL: +loose stools (improved) GENITOURINARY: +oliguric MUSCULOSKELETAL: generalized weakness NEUROLOGICAL: denies paresthesias HEMATOLOGICAL: +anemic SKIN: scattered ecchymosis PSYCHIATRIC: Unremarkable All other review of systems found to be negative. PHYSICAL EXAMINATION: VITAL SIGNS: Please see below. GENERAL: Pleasant and cooperative. No acute distress. HEENT: PERRL. Extraocular movements intact. Clear conjunctiva CARDIOVASCULAR: Regular rate and rhythm. No murmurs, rubs, or gallops LUNGS: Clear to auscultation on right side, decreased breath sounds left lung base, No wheezes. No rhonchi ABDOMEN: Soft, nontender, nondistended. Positive bowel sounds. Normal active bowel sounds NEUROLOGICAL: Alert and oriented times three. Cranial nerves II through XII grossly intact. Sensation grossly intact EXTREMITIES: 5\5 strength bilateral upper extremities. 5\5 strength right lower extremity. 5/5 strength in left lower extremity. (-) SLR, no pain with interntal or external rotation of the hips, +TTP along the course of the right ITB Skin- right sided port, left chest wall permacath, left sided chest tube- all ana-skin c/d/i LABORATORY DATA: Please see below. ASSESSMENT:75-year-old M with past medical history of pancreatic cancer s/p Whipple surgery and recurrent SBOs who presents status post recurrent SBO with pneumoperitonitis PLAN: 1. Rehab- PT/OT advance mobility and ADLs, strengthen/stretch.maintain ROM all 4 limbs 2. 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 resp- chronic left sided hydro-pneumothorax with chronic pleurex- drain q2d -Duonebs, 02 for comfort while in therapy 4. GI- patient transitioned from IV Zosyn to Cipro for SBO, now off abx, on mechanical soft diet- monitor for worsening abdominal symptoms, trend crp and esr -hx of GI bleed, c/u protonix and sucralfate, patient refusing most meds, but agreed today to take sucralfate and tums to prevent gastric ulcers -loose stools, c/u metamucil prn 5. Onco- hx of metastatic pancreatic cancer- patient currently declining further chemotherapy 6. Heme- anemia due to GI bleed and ESRD, renal following and treating with aranesp, monitor H/H, transfuse if Hgb <8 7. DVT ppx- on eliquis, teds 8. Pain- tylenol prn -patient recently reporting right>left non-radiating leg pain, c/u oxycodone prn and lidoderm patch for suspected ITB tendinopathy-improving 9. Dispo- 08-12-20 to home, progressing towards goals Allergies Coded Allergies: No Known Allergies (Unverified , 07/27/18) Vital Signs Vital Signs Date Time Temp Pulse Resp B/P (MAP) Pulse Ox O2 Delivery O2 Flow Rate FiO2 08/08/20 14:00 98.0 88 18 107/61 (76) 98 Room Air Current Medications Current Medications Current Medications Medications (Trade) Dose Ordered Sig/Dejan Route PRN Reason Start Time Stop Time Status Last Admin Dose Admin Acetaminophen (Tylenol Tab) 650 mg Q4HP PRN PO fever/MILD PAIN (PS 1-4) 08/01/20 17:55 Albuterol/ Ipratropium (Duoneb (Ipr 0.5mg/Alb 2.5mg)) 3 ml RTID NEB 08/02/20 14:00 08/08/20 13:12 Alteplase, Recombinant (Cathflo Activase) 2 mg ASDIRECTED PRN IV SEE LABEL COMMENTS 08/06/20 07:30 08/06/20 07:57 Alteplase, Recombinant (Cathflo Activase) 2 mg ASDIRECTED PRN IV SEE LABEL COMMENTS 08/06/20 07:30 08/06/20 07:57 Apixaban (Eliquis) 2.5 mg BID PO 08/02/20 09:00 08/08/20 08:50 Aspirin (Ecotrin) 81 mg DAILY PO 08/02/20 09:00 08/08/20 08:49 Bisacodyl (Dulcolax Suppository) 10 mg DAILYPRN PRN [place] CONSTIPATION 08/01/20 17:55 Calcium Carbonate (Tums) 500 mg WM PO 08/07/20 12:30 08/07/20 13:26 Darbepoetin Mert (Aranesp (Dialysis Use)) 200 mcg HD IV 08/02/20 18:20 Docusate Sodium (Colace) 100 mg BID PO 08/01/20 21:00 08/02/20 13:28 DC Docusate Sodium (Colace) 100 mg BID PRN PO constipation 08/02/20 21:00 Emollient Cream (Vanicream) apply to bilat LE BID TOP 08/05/20 09:00 08/07/20 09:39 Heparin Sodium (Heparin (Flush)) 500 units ASDIRECTED PRN IV SEE LABEL COMMENTS 08/02/20 14:00 08/02/20 17:11 Heparin Sodium (Heparin (Flush)) 500 units DAILY IV 08/03/20 09:00 08/08/20 08:51 Heparin Sodium (Heparin) Please refer to ... ASDIRECTED XX 08/04/20 07:00 08/05/20 06:59 DC Heparin Sodium (Heparin) Please refer to ... ASDIRECTED XX 08/08/20 07:25 08/09/20 07:24 Heparin Sodium (Heparin) dose as per volume indica... ASDIRECTED PRN IV SEE LABEL COMMENTS 08/04/20 07:00 08/04/20 11:49 DC Heparin Sodium (Heparin) dose as per volume indica... ASDIRECTED PRN IV SEE LABEL COMMENTS 08/08/20 07:25 08/09/20 07:24 Lidocaine (Lidoderm Patch) 2 patch DAILY TD 08/06/20 09:00 08/08/20 08:52 Midodrine (Proamatine) 5 mg 0800,1400 PO 08/02/20 08:00 08/03/20 13:51 Non-Formulary Medication ( See Comment Field Below ) REMOVE LIDODERM PATCH DAILY@21 XX 08/06/20 21:00 08/07/20 20:10 Ondansetron HCl (Zofran Odt) 4 mg Q4HP PRN PO NAUSEA OR VOMITING 08/01/20 17:55 08/03/20 19:42 Oxycodone HCl (Roxicodone, Oxyir) 5 mg Q4HP PRN PO PAIN 08/05/20 13:55 08/08/20 08:50 Pantoprazole Sodium (Protonix) 40 mg BID PO 08/02/20 09:00 08/03/20 07:49 Psyllium Hydrophilic Mucilloid (Metamucil) 1 pkt DAILYPRN PRN PO diarrhea 08/02/20 13:25 Senna (Senokot) 1 tab QHS PO 08/01/20 21:00 08/02/20 13:28 DC Senna (Senokot) 1 tab QHS PRN PO constipation 08/02/20 21:00 Sodium Chloride (Saline Lock Flush) 10 ml ASDIRECTED PRN IV SEE LABEL COMMENTS 08/02/20 14:00 08/02/20 17:11 Sodium Chloride (Saline Lock Flush) 10 ml DAILY IV 08/03/20 09:00 08/08/20 08:51 Sucralfate (Carafate) 1 gm ACHS PO 08/01/20 21:00 08/07/20 11:56 LISANDRO LUEVANO MD Aug 08, 2020 14:34
[2020-08-08 20:00] VITALS: BP 137/74
[2020-08-08] MEDS: **NOTE PATIENT COMMENT** MISC XX SCH (22:19)
[2020-08-09 05:23] VITALS: BP 107/62
[2020-08-09] MEDS: SODIUM CHLORIDE 0.9% INJ 10 ML SYR IV SCH (05:58)
[2020-08-09] MEDS: SUCRALFATE 1 GM TAB PO SCH ×4 (07:30→20:14)
[2020-08-09] MEDS: IPRATROPIUM 0.5MG/ALBUTEROL 2.5MG INH SOL UD 3ML (DUONEB) NEB SCH ×3 (07:38→19:56)
[2020-08-09] MEDS: CALCIUM CARBONATE 500 MG CHEW U/D PO SCH ×3 (08:00→17:41)
[2020-08-09] MEDS: MIDODRINE 5 MG TAB PO SCH ×2 (08:00→13:22)
[2020-08-09] MEDS: VANICREAM MOISTURIZING SKIN CREAM 113GM TUBE TOP SCH ×2 (08:51→20:15)
[2020-08-09] MEDS: PANTOPRAZOLE 40MG TAB (PROTONIX) PO SCH ×2 (08:51→20:15)
[2020-08-09] MEDS: APIXABAN 2.5 MG TAB (ELIQUIS) PO SCH ×2 (09:00→20:14)
[2020-08-09] MEDS: ASPIRIN 81MG ENTERIC TABLET PO SCH (09:00)
[2020-08-09] MEDS: LIDOCAINE 5% (LIDODERM) PATCH TD SCH (09:00)
[2020-08-09] MEDS: REMEDY PHYTOPLEX Z-GUARD PASTE 113GM TUBE (FROM STOREROOM PRODUCT) TOP SCH ×3 (09:00→20:16)
[2020-08-09] MEDS: oxyCODONE 5MG TAB PO PRN ×3 (09:02→20:14)
[2020-08-09 14:00] VITALS: BP 117/63
[2020-08-09 20:00] VITALS: BP 138/82
[2020-08-09] MEDS: ONDANSETRON 4 MG ORAL DISINTEGRATING TAB PO PRN (20:14)
[2020-08-09] MEDS: **NOTE PATIENT COMMENT** MISC XX SCH (20:16)
[2020-08-10 05:22] VITALS: BP 114/63
[2020-08-10] MEDS: oxyCODONE 5MG TAB PO PRN ×3 (06:13→16:40)
[2020-08-10] MEDS: MIDODRINE 5 MG TAB PO SCH ×2 (07:20→13:21)
[2020-08-10] MEDS: PANTOPRAZOLE 40MG TAB (PROTONIX) PO SCH ×2 (07:20→20:38)
[2020-08-10] MEDS: SUCRALFATE 1 GM TAB PO SCH ×4 (07:20→20:37)
[2020-08-10] MEDS: VANICREAM MOISTURIZING SKIN CREAM 113GM TUBE TOP SCH ×2 (07:21→20:38)
[2020-08-10] MEDS: REMEDY PHYTOPLEX Z-GUARD PASTE 113GM TUBE (FROM STOREROOM PRODUCT) TOP SCH ×3 (07:21→20:38)
[2020-08-10] MEDS: IPRATROPIUM 0.5MG/ALBUTEROL 2.5MG INH SOL UD 3ML (DUONEB) NEB SCH ×3 (07:30→20:00)
[2020-08-10] MEDS: CALCIUM CARBONATE 500 MG CHEW U/D PO SCH ×3 (07:41→16:39)
[2020-08-10] MEDS: ASPIRIN 81MG ENTERIC TABLET PO SCH (07:41)
[2020-08-10] MEDS: APIXABAN 2.5 MG TAB (ELIQUIS) PO SCH ×2 (07:41→20:36)
[2020-08-10] MEDS: SODIUM CHLORIDE 0.9% INJ 10 ML SYR IV SCH (07:43)
[2020-08-10] MEDS: LIDOCAINE 5% (LIDODERM) PATCH TD SCH (07:44)
[2020-08-10 14:00] VITALS: BP 106/51
[2020-08-10] MEDS: ONDANSETRON 4 MG ORAL DISINTEGRATING TAB PO PRN (17:23)
[2020-08-10 20:00] VITALS: BP 103/56
[2020-08-10] MEDS: **NOTE PATIENT COMMENT** MISC XX SCH (20:38)
[2020-08-11 06:04] VITALS: BP 101/50
[2020-08-11] MEDS: SODIUM CHLORIDE 0.9% INJ 10 ML SYR IV SCH (06:40)
[2020-08-11] MEDS: ONDANSETRON 4 MG ORAL DISINTEGRATING TAB PO PRN (06:41)
[2020-08-11] MEDS: IPRATROPIUM 0.5MG/ALBUTEROL 2.5MG INH SOL UD 3ML (DUONEB) NEB SCH ×3 (07:23→20:00)
[2020-08-11] MEDS: SUCRALFATE 1 GM TAB PO SCH ×4 (07:30→20:31)
[2020-08-11] MEDS: CALCIUM CARBONATE 500 MG CHEW U/D PO SCH ×3 (08:00→18:00)
[2020-08-11] MEDS: PANTOPRAZOLE 40MG TAB (PROTONIX) PO SCH ×2 (09:22→20:28)
[2020-08-11] MEDS: MIDODRINE 5 MG TAB PO SCH ×2 (09:22→14:43)
[2020-08-11] MEDS: APIXABAN 2.5 MG TAB (ELIQUIS) PO SCH ×2 (09:23→20:28)
[2020-08-11] MEDS: oxyCODONE 5MG TAB PO PRN (09:23)
[2020-08-11] MEDS: ASPIRIN 81MG ENTERIC TABLET PO SCH (09:23)
[2020-08-11] MEDS: REMEDY PHYTOPLEX Z-GUARD PASTE 113GM TUBE (FROM STOREROOM PRODUCT) TOP SCH ×3 (09:24→20:31)
[2020-08-11] MEDS: LIDOCAINE 5% (LIDODERM) PATCH TD SCH (09:24)
[2020-08-11] MEDS: VANICREAM MOISTURIZING SKIN CREAM 113GM TUBE TOP SCH ×2 (09:25→20:31)
--- NOTE | 2020-08-11 13:52 | IPNPDOC ---
PM&R Progress Note DATE OF SERVICE: Aug 11, 2020 Assistant Food Service Manager Progress Note Subjective: Patient reporting he feels ready to go home tomorrow and feels stronger overall. REVIEW OF SYSTEMS: The following is a completed review of systems and has been reviewed. Review of systems otherwise unremarkable. PAIN: Patient self reports no pain EYES: No recent vision changes EARS, NOSE, & THROAT: No throat pain, or dysphagia, or rhinorrhea CARDIOVASCULAR: Denies chest pain or palpitations PULMONARY: Denies shortness of breath GASTROINTESTINAL: +loose stools (improved) GENITOURINARY: +oliguric MUSCULOSKELETAL: generalized weakness NEUROLOGICAL: denies paresthesias HEMATOLOGICAL: +anemic SKIN: scattered ecchymosis PSYCHIATRIC: Unremarkable All other review of systems found to be negative. PHYSICAL EXAMINATION: VITAL SIGNS: Please see below. GENERAL: Pleasant and cooperative. No acute distress. HEENT: PERRL. Extraocular movements intact. Clear conjunctiva CARDIOVASCULAR: Regular rate and rhythm. No murmurs, rubs, or gallops LUNGS: Clear to auscultation on right side, decreased breath sounds left lung base, No wheezes. No rhonchi ABDOMEN: Soft, nontender, nondistended. Positive bowel sounds. Normal active bowel sounds NEUROLOGICAL: Alert and oriented times three. Cranial nerves II through XII grossly intact. Sensation grossly intact EXTREMITIES: 5\5 strength bilateral upper extremities. 5\5 strength right lower extremity. 5/5 strength in left lower extremity. (-) SLR, no pain with interntal or external rotation of the hips, +TTP along the course of the right ITB Skin- right sided port, left chest wall permacath, left sided chest tube- all ana-skin c/d/i LABORATORY DATA: Please see below. ASSESSMENT:75-year-old M with past medical history of pancreatic cancer s/p Whipple surgery and recurrent SBOs who presents status post recurrent SBO with pneumoperitonitis PLAN: 1. Rehab- PT/OT advance mobility and ADLs, strengthen/stretch.maintain ROM all 4 limbs 2. 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 resp- chronic left sided hydro-pneumothorax with chronic pleurex- drain q2d -Duonebs, 02 for comfort while in therapy 4. GI- patient transitioned from IV Zosyn to Cipro for SBO, now off abx, on mechanical soft diet- monitor for worsening abdominal symptoms, trend crp and esr -hx of GI bleed, c/u protonix and sucralfate, patient refusing most meds, but agreed today to take sucralfate and tums to prevent gastric ulcers -loose stools, c/u metamucil prn 5. Onco- hx of metastatic pancreatic cancer- patient currently declining further chemotherapy 6. Heme- anemia due to GI bleed and ESRD, renal following and treating with aranesp, monitor H/H, transfuse if Hgb <8 7. DVT ppx- on eliquis, teds 8. Pain- tylenol prn -patient recently reporting right>left non-radiating leg pain, c/u oxycodone prn and lidoderm patch for suspected ITB tendinopathy-improving 9. Dispo- 08-12-20 to home, progressing towards goals Allergies Coded Allergies: No Known Allergies (Unverified , 07/27/18) Vital Signs Vital Signs Date Time Temp Pulse Resp B/P (MAP) Pulse Ox O2 Delivery O2 Flow Rate FiO2 08/11/20 10:20 18 Room Air 08/11/20 06:04 98.0 68 101/50 (67) 92 Laboratory Data Labs 24H Laboratory Tests 2 08/11/20 06:00: Hepatitis B Surface Antigen NEGATIVE Current Medications Current Medications Current Medications Medications (Trade) Dose Ordered Sig/Dejan Route PRN Reason Start Time Stop Time Status Last Admin Dose Admin Acetaminophen (Tylenol Tab) 650 mg Q4HP PRN PO fever/MILD PAIN (PS 1-4) 08/01/20 17:55 Albuterol/ Ipratropium (Duoneb (Ipr 0.5mg/Alb 2.5mg)) 3 ml RTID NEB 08/02/20 14:00 08/10/20 07:30 Alteplase, Recombinant (Cathflo Activase) 2 mg ASDIRECTED PRN IV SEE LABEL COMMENTS 08/06/20 07:30 08/06/20 07:57 Alteplase, Recombinant (Cathflo Activase) 2 mg ASDIRECTED PRN IV SEE LABEL COMMENTS 08/06/20 07:30 08/06/20 07:57 Apixaban (Eliquis) 2.5 mg BID PO 08/02/20 09:00 08/11/20 09:23 Aspirin (Ecotrin) 81 mg DAILY PO 08/02/20 09:00 08/11/20 09:23 Bisacodyl (Dulcolax Suppository) 10 mg DAILYPRN PRN [place] CONSTIPATION 08/01/20 17:55 Calcium Carbonate (Tums) 500 mg WM PO 08/07/20 12:30 08/10/20 07:41 Darbepoetin Mert (Aranesp (Dialysis Use)) 200 mcg HD IV 08/02/20 18:20 08/08/20 17:04 Docusate Sodium (Colace) 100 mg BID PO 08/01/20 21:00 08/02/20 13:28 DC Docusate Sodium (Colace) 100 mg BID PRN PO constipation 08/02/20 21:00 Emollient Cream (Vanicream) apply to bilat LE BID TOP 08/05/20 09:00 08/11/20 09:25 Heparin Sodium (Heparin (Flush)) 500 units ASDIRECTED PRN IV SEE LABEL COMMENTS 08/02/20 14:00 08/02/20 17:11 Heparin Sodium (Heparin (Flush)) 500 units DAILY IV 08/03/20 09:00 08/11/20 06:39 Heparin Sodium (Heparin) Please refer to ... ASDIRECTED XX 08/11/20 06:00 08/12/20 05:59 Heparin Sodium (Heparin) Please refer to ... ASDIRECTED XX 08/04/20 07:00 08/05/20 06:59 DC Heparin Sodium (Heparin) Please refer to ... ASDIRECTED XX 08/08/20 07:25 08/09/20 07:24 DC Heparin Sodium (Heparin) dose as per volume indica... ASDIRECTED PRN IV SEE LABEL COMMENTS 08/11/20 06:00 08/11/20 19:14 Heparin Sodium (Heparin) dose as per volume indica... ASDIRECTED PRN IV SEE LABEL COMMENTS 08/04/20 07:00 08/04/20 11:49 DC Heparin Sodium (Heparin) dose as per volume indica... ASDIRECTED PRN IV SEE LABEL COMMENTS 08/08/20 07:25 08/09/20 07:24 DC Lidocaine (Lidoderm Patch) 2 patch DAILY TD 08/06/20 09:00 08/11/20 09:24 Midodrine (Proamatine) 5 mg 0800,1400 PO 08/02/20 08:00 08/11/20 09:22 Non-Formulary Medication ( See Comment Field Below ) REMOVE LIDODERM PATCH DAILY@21 XX 08/06/20 21:00 08/10/20 20:38 Ondansetron HCl (Zofran Odt) 4 mg Q4HP PRN PO NAUSEA OR VOMITING 08/01/20 17:55 08/11/20 06:41 Oxycodone HCl (Roxicodone, Oxyir) 5 mg Q4HP PRN PO PAIN 08/05/20 13:55 08/11/20 09:23 Pantoprazole Sodium (Protonix) 40 mg BID PO 08/02/20 09:00 08/11/20 09:22 Psyllium Hydrophilic Mucilloid (Metamucil) 1 pkt DAILYPRN PRN PO diarrhea 08/02/20 13:25 Senna (Senokot) 1 tab QHS PO 08/01/20 21:00 08/02/20 13:28 DC Senna (Senokot) 1 tab QHS PRN PO constipation 08/02/20 21:00 Sodium Chloride (Saline Lock Flush) 10 ml ASDIRECTED PRN IV SEE LABEL COMMENTS 08/02/20 14:00 08/02/20 17:11 Sodium Chloride (Saline Lock Flush) 10 ml DAILY IV 08/03/20 09:00 08/11/20 06:40 Sucralfate (Carafate) 1 gm ACHS PO 08/01/20 21:00 08/07/20 11:56 LISANDRO LUEVANO MD Aug 11, 2020 13:52
[2020-08-11 14:00] VITALS: BP 137/75
[2020-08-11 16:06] LABS: HEMATOCRIT 37.7 % (42.0-52.0); HEMOGLOBIN 11.3 g/dl (13.5-17.5); MEAN CORPUSCULAR HEMOGLOBIN 28.8 pg (27.0-33.0); MEAN CORPUSCULAR VOLUME 96.2 fl (80.0-96.0); PLATELET COUNT, AUTOMATED 304 10^3/uL (150-450); RED BLOOD COUNT 3.92 10^6/uL (4.30-6.10); WHITE BLOOD COUNT 8.5 10^3/uL (4.0-10.0)
[2020-08-11 16:36] LABS: CALCIUM LEVEL 8.2 MG/DL (8.8-10.2); CREATININE FOR GFR 5.84 MG/DL (0.70-1.30); GLOMERULAR FILTRATION RATE 10.1 (>42); POTASSIUM SERUM 5.1 MEQ/L (3.5-5.1)
[2020-08-11] MEDS ORDERED: POLYETHYLENE GLYCOL (MIRALAX) 238GM BOTTLE PO ONE (18:00)
[2020-08-11] MEDS ORDERED: MIRALAX *UNIT DOSE* 17GM PACKET PO ONE (18:00)
[2020-08-11 20:15] VITALS: BP 100/55
[2020-08-11] MEDS: **NOTE PATIENT COMMENT** MISC XX SCH (20:30)
--- NOTE | 2020-08-11 21:13 | IPN ---
PROGRESS NOTE DATE: 08/11/2020 SUBJECTIVE: Michele is seen and examined this morning at the bedside. He has no specific new complaints. He continues to feel generally fatigued and tired. His blood pressure is persistently soft in the dialysis unit this afternoon. OBJECTIVE: VITAL SIGNS: Temperature 97.3, pulse 81, respiratory rate 18, blood pressure 137/75, saturating 94% on room air. Blood pressure on the hemodialysis unit is 90's/60's. INTAKE/OUTPUT: Oral intake has been low per the patient, but is not fully recorded by the nursing staff. GENERAL: Patient is awake, alert, oriented x3, in no apparent distress. HEENT: Extraocular muscles are intact. Tongue is dry. Jugular veins are not elevated. HEART: Sounds are irregular S1, S2. There is no leg edema. LUNGS: Show diminished breath sounds at the left base, otherwise no crackles. ABDOMEN: Soft and nontender. EXTREMITIES: Show muscle wasting. No cyanosis or clubbing. No edema. NEUROLOGIC: He is oriented x3, interactive and conversational. DIALYSIS ACCESS: Patient has a tunneled hemodialysis catheter. PSYCHIATRIC: Appears depressed. LABORATORY STUDIES: Sodium 135, potassium 5.1, bicarbonate 21. Hemoglobin 11.3, platelets 304,000. INPATIENT MEDICATIONS: Reviewed by myself and no changes noted over the past 24 hours with the exception of one dose of MiraLax that was ordered. PROBLEMS: 1. End-stage renal disease on hemodialysis on a Tuesday, Tuesday, Tuesday schedule: Patient is dialyzed mostly for clearance with minimal to no fluid removal. He is hypotensive during his treatment today. No fluid was removed. I will plan to dialyze him with albumin support on his next treatment. He also continues on Midodrine. 2. Chronic hypotension: Continue Midodrine 5 mg p.o. b.i.d. Patient continued to be hypotensive with his dialysis treatment and we will give him albumin with his next treatment. 3. Protein calorie malnutrition: In this patient with chronic renal failure and indolent pancreatic cancer and recent small bowel obstruction and perforation. His oral intake is very poor. Encourage Nepro with feeds. 4. Anemia of end-stage renal disease and recent GI bleed: Hemoglobin is optimal at this time and the patient continues on Aranesp with dialysis.
[2020-08-12 06:01] LABS: HEMATOCRIT 35.6 % (42.0-52.0); HEMOGLOBIN 10.7 g/dl (13.5-17.5); MEAN CORPUSCULAR HEMOGLOBIN 28.7 pg (27.0-33.0); MEAN CORPUSCULAR HGB CONC 30.1 g/dl (32.0-36.5); MEAN CORPUSCULAR VOLUME 95.4 fl (80.0-96.0); PLATELET COUNT, AUTOMATED 250 10^3/uL (150-450); RED BLOOD COUNT 3.73 10^6/uL (4.30-6.10); WHITE BLOOD COUNT 8.1 10^3/uL (4.0-10.0)
[2020-08-12] MEDS: SODIUM CHLORIDE 0.9% INJ 10 ML SYR IV PRN (06:01)
[2020-08-12 06:20] VITALS: BP 131/75
[2020-08-12 06:28] LABS: CALCIUM LEVEL 7.6 MG/DL (8.8-10.2); CREATININE FOR GFR 4.24 MG/DL (0.70-1.30); GLOMERULAR FILTRATION RATE 14.6 (>42); POTASSIUM SERUM 4.6 MEQ/L (3.5-5.1)
[2020-08-12] MEDS ORDERED: ELIQ2.5T PO (07:23)
[2020-08-12] MEDS ORDERED: OXYC-517 PO (07:23)
[2020-08-12] MEDS ORDERED: PANT40TA29 PO (07:23)
[2020-08-12] MEDS ORDERED: MIDO5TA PO (07:23)
[2020-08-12] MEDS ORDERED: ASPI-551 PO (07:23)
[2020-08-12] MEDS: SUCRALFATE 1 GM TAB PO SCH ×2 (07:30→12:00)
[2020-08-12] MEDS: IPRATROPIUM 0.5MG/ALBUTEROL 2.5MG INH SOL UD 3ML (DUONEB) NEB SCH ×2 (07:44→13:24)
[2020-08-12] MEDS: CALCIUM CARBONATE 500 MG CHEW U/D PO SCH ×2 (08:00→12:12)
[2020-08-12] MEDS: VANICREAM MOISTURIZING SKIN CREAM 113GM TUBE TOP SCH (09:00)
[2020-08-12] MEDS: SODIUM CHLORIDE 0.9% INJ 10 ML SYR IV SCH (09:00)
[2020-08-12] MEDS: REMEDY PHYTOPLEX Z-GUARD PASTE 113GM TUBE (FROM STOREROOM PRODUCT) TOP SCH (09:00)
[2020-08-12] MEDS: MIDODRINE 5 MG TAB PO SCH (09:34)
[2020-08-12] MEDS: ASPIRIN 81MG ENTERIC TABLET PO SCH (09:34)
[2020-08-12] MEDS: PANTOPRAZOLE 40MG TAB (PROTONIX) PO SCH (09:34)
[2020-08-12] MEDS: APIXABAN 2.5 MG TAB (ELIQUIS) PO SCH (09:34)
[2020-08-12] MEDS: LIDOCAINE 5% (LIDODERM) PATCH TD SCH (09:36)
[2020-08-12] MEDS: oxyCODONE 5MG TAB PO PRN (09:39)
[2020-08-12 11:09] VITALS: BP 131/75
[2020-08-12 14:00] VITALS: BP 123/60
[2020-08-13] MEDS ORDERED: OXYC-517 PO (15:56)
[2020-08-13] MEDS ORDERED: PANT-23 PO (15:57)
--- NOTE | 2020-08-27 08:48 | PMRDS ---
NAME: LORENZA MENDEZ [facility] WT ID#: [id number] : [id number] JOB: [id number] MALLORY: 08/12/2020 ACCT: [id number] DOCTOR: LISANDRO LUEVANO MD PMR DISCHARGE SUMMARY DATE OF ADMISSION: 08/01/2020 DATE OF DISCHARGE: 08/12/2020 CHIEF COMPLAINT/DISCHARGE DIAGNOSIS: Weakness in the setting of pancreatic cancer and small bowel obstruction. 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 CT scan of the abdomen and pelvis showed "small volume of extraluminal pneumoperitoneum in the anterior right mid abdomen with adjacent dilated small bowel loops measuring up to 4 cm in diameter with enteric contents and dilatation of the adjacent bowel loops adjusting a focal small bowel obstruction." He was started on I.V. antibiotics, received TPN and evaluated by surgery, and opted not to get surgery as his symptoms began to improve. He was transitioned to a soft diet and was able to pass bowel movements with follow-up CT abdomen and pelvis showing "previously noted small amount of pneumoperitoneum has resolved and there is no current evidence for bowel obstruction or perforation." In addition, he was noted to have a large left sam-hydropneumothorax, for which Dr. Asif recommended continuing drainage every other day. He remained weak in mobility and ADLs and impairments and deemed medically appropriate for discharge to ARU. PAST MEDICAL HISTORY: As per HPI. HOSPITAL COURSE: Patient was admitted and enrolled in a comprehensive PT/OT program. He received 24 hour nursing supervision and weekly team meetings were held to discuss his progress. Patient refused to take many of his medications, however, was agreeable to taking his Eliquis and Carafate. He made slow and steady gains in therapy, was treated by renal for his anemia with Aranesp and had his hydropneumothorax drained every other day. He was deemed medically and functionally stable to return home with family support. DISCHARGE MEDICATIONS: As per instructions. FUNCTIONAL HISTORY ON DISCHARGE: The patient was contact guard to standby assist in ambulation, bed mobility, dressing, toileting. Thank you for this referral.
== END 2020-08-12 15:00 | disposition home health service (06) | DRG 947 ==
LOC: M PM&R 21:12
PROVIDERS: ADMIT Physical Medicine & Rehabilitation; ATTEND Physical Medicine & Rehabilitation
DX: R53.1 Weakness (principal); N18.6 End stage renal disease; C25.9 Malignant neoplasm of pancreas, unspecified; C78.00 Secondary malignant neoplasm of unspecified lung; J93.83 Other pneumothorax; I95.9 Hypotension, unspecified; I48.91 Unspecified atrial fibrillation; I27.20 Pulmonary hypertension, unspecified; N40.0 Benign prostatic hyperplasia without lower urinary tract symptoms; Z74.09 Other reduced mobility; Z74.1 Need for assistance with personal care; D63.1 Anemia in chronic kidney disease; Z87.891 Personal history of nicotine dependence; Z99.2 Dependence on renal dialysis; T45.1X5D Adverse effect of antineoplastic and immunosuppressive drugs, subsequent encounter; I25.10 Atherosclerotic heart disease of native coronary artery without angina pectoris; Z79.01 Long term (current) use of anticoagulants; Z79.82 Long term (current) use of aspirin; Z79.899 Other long term (current) drug therapy

== ENCOUNTER 2020-08-13 12:12 | Inpatient (IN) | payer MEDICARE ==
[~2020-08-13] VITALS: Ht 149.9 cm; Wt 66.0 kg
[~2020-08-13 12:12] MED LIST changes: +ASPI-551 PO; +OXYC-517 PO
[2020-08-13] MEDS ORDERED: NS 1,000 ML IV SCH (12:35)
[2020-08-13 13:15] LABS: BASO # 0.1 10^3/uL (0.0-0.2); BASO % 0.5 % (0.0-1.0); EOS # 0.2 10^3/uL (0.0-0.5); EOS % 2.4 % (0.0-3.0); HEMATOCRIT 41.5 % (42.0-52.0); HEMOGLOBIN 12.3 g/dl (13.5-17.5); LYMPH # 0.6 10^3/uL (1.5-5.0); LYMPH % 6.1 % (24.0-44.0); MEAN CORPUSCULAR HEMOGLOBIN 28.8 pg (27.0-33.0); MEAN CORPUSCULAR HGB CONC 29.6 g/dl (32.0-36.5); MEAN CORPUSCULAR VOLUME 97.2 fl (80.0-96.0); MONO # 0.7 10^3/uL (0.0-0.8); MONO % 7.2 % (2.0-8.0); PLATELET COUNT, AUTOMATED 323 10^3/uL (150-450); RED BLOOD COUNT 4.27 10^6/uL (4.30-6.10); WHITE BLOOD COUNT 9.6 10^3/uL (4.0-10.0)
[2020-08-13 13:47] LABS: BILIRUBIN,DIRECT 0.2 MG/DL (0.0-0.2); BILIRUBIN,TOTAL 0.4 MG/DL (0.2-1.0); CALCIUM LEVEL 8.5 MG/DL (8.8-10.2); CREATININE FOR GFR 5.85 MG/DL (0.70-1.30); POTASSIUM SERUM 4.9 MEQ/L (3.5-5.1); THYROID STIMULATING HORMONE 5.51 uIU/ML (0.358-3.740); TOTAL PROTEIN 5.7 GM/DL (6.4-8.2)
--- NOTE | 2020-08-13 14:32 | REP ---
INDICATION: vomiting. COMPARISON: Multiple the latest 07/31/2020 TECHNIQUE: Noncontrast enhanced helical technique FINDINGS: There is no significant change in appearance of the lung bases. There is a left-sided hydropneumothorax with volume loss status quo. There is no significant change in appearance of the imaged osseous structures. The liver, spleen, pancreas, adrenal glands, and kidneys are stable. Note is again made of pneumobilia. Note is again made of bilateral renal atrophic changes. There is no significant change in appearance of the bowel loops or the mesenteries. There are a few scattered gas-filled small bowel loops without significant small bowel dilatation. The appearance of this is stable from the prior exam. There is no significant change in appearance of the abdominal aorta or para-aortic regions. There is no evidence of free intraperitoneal fluid or air. IMPRESSION: There has been no significant change compared to the prior exam with findings as described above. A small bowel ileus is suspected status quo. <Electronically signed by Clint Ortega > 08/13/20 [id number]
[2020-08-13] MEDS ORDERED: oxyCODONE 5MG TAB PO PRN (15:50)
--- NOTE | 2020-08-13 15:53 | HPEPDOC ---
General Date of Admission 08/13/20 Date of Service: Aug 13, 2020 Chief Complaint The patient is a 75-year-old male admitted with a reason for visit of WEAK. Source: Patient Exam Limitations: No limitations History of Present Illness Patient is 75 years old male with past history of metastatic pancreatic cancer on supportive care, he had Whipple procedure, end-stage renal diseases on dialysis, recurrent small bowel obstruction, hypotension presented to the hospital with generalized weakness. Patient stated that after discharge on 08/11/20 from acute rehabilitation he became weak and had constipation for past 4 days. He became progressively weak yesterday and today and he missed dialysis which was planned today. Also patient complains of nausea and and few episodes of vomiting started since yesterday. In ER patient was found to have hemoglobin 12.3, no leukocytosis, creatinine 5.8. CT abd/pelvis There has been no significant change compared to the prior exam with findings as described above. A small bowel ileus is suspected status quo. Home Medications Scheduled Apixaban (Eliquis) 2.5 Mg Tablet, 2.5 MG PO BID, (Reported) Aspirin (Aspirin EC) 81 Mg Tablet.dr, 81 MG PO DAILY, (Reported) Midodrine HCl (Midodrine HCl) 5 Mg Tablet, 5 MG PO BID, (Reported) Pantoprazole Sodium (Pantoprazole Sodium) 40 Mg Tablet.dr, 40 MG PO DAILY, (Reported) Scheduled PRN Oxycodone HCl (Oxycodone HCl) 5 Mg Tablet, 5 MG PO Q4H PRN for PAIN, (Reported) Allergies Coded Allergies: No Known Allergies (Unverified , 07/27/18) Past Medical History Medical History PANCREATIC CA S/P WHIPPLE 1999 SBO HYDROPNEUMOTHORAX TOBACCO ABUSE THROMBOCYTOPENIA RECURRENT MICROSCOPIC HEMATURIA Surgical History WHIPPLE SURGERY 2000 INFUSA-A- PORT PLACEMENT 2000 CHEST TUBE 2010 U/S GUIDED LUNG BIOPSY 10/2014 [id number] PLACEMENT 12/2014 CYSTOSCOPY 09/2018 GRAFT ARM/ [place] [facility] 20 YEARS AGO [facility] Lung cancer 11/19/2014, left lower lung nodule biopsy, showed mucinous adenocarcinoma, 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 Family History I personally reviewed from family history and found not pertinent Social History * Smoker: Denies Alcohol: Denies Drugs: denies A-FIB/CHADSVASC A-FIB History Current/History of A-Fib/PAF?: Yes Current PO Anticoag Therapy: Yes Review of Systems Constitutional: Reports: Weakness, Fatigue; Denies: Chills, Fever Eyes: Denies: Pain ENT: Denies: Head Aches Skin: Denies: Rash, Lesions Pulmonary: Denies: Dyspnea Cardiovascular: Denies: Chest Pain, Palpitations Gastrointestinal: Reports: Nausea, Vomiting Genitourinary: Denies: Hematuria Hematologic: Denies: Bruising Endocrine: Denies: Polydipsia Musculoskeletal: Denies: Neck Pain Neurological: Denies: Weakness Psych: Reports: Mood Normal Physical Examination General Exam: Positive: Alert, Cooperative Eye Exam: Positive: PERRLA ENT Exam: Positive: Atraumatic Neck Exam: Positive: Supple; Negative: JVD Chest Exam: Positive: Clear to auscultation Heart Exam: Positive: Irregular Rhythm Telemetry: Positive: Atrial fibrillation Abdomen Exam: Positive: Normal bowel sounds Extremity Exam: Negative: Clubbing Skin Exam: Positive: Nl turgor and temperature Neuro Exam: Positive: Cranial Nerves 3-12 NL Psych Exam: Positive: Mental status NL Vital Signs Vital Signs Date Time Temp Pulse Resp B/P (MAP) Pulse Ox O2 Delivery O2 Flow Rate FiO2 08/13/20 13:17 08/13/20 12:24 94 26 08/13/20 12:13 97.9 94 Room Air Laboratory Data Labs 24H Laboratory Tests 2 08/13/20 12:52: Immature Granulocyte % (Auto) 0.8, Neutrophils (%) (Auto) 83.0H, Lymphocytes (%) (Auto) 6.1L, Monocytes (%) (Auto) 7.2, Eosinophils (%) (Auto) 2.4, Basophils (%) (Auto) 0.5, Neutrophils # (Auto) 8.0, Lymphocytes # (Auto) 0.6L, Monocytes # (Auto) 0.7, Eosinophils # (Auto) 0.2, Basophils # (Auto) 0.1, Nucleated Red Blood Cells % (auto) 0.2H, Anion Gap 11, Glomerular Filtration Rate 10.0L, Calcium Level 8.5L, Total Bilirubin 0.4, Direct Bilirubin 0.2, Aspartate Amino Transf (AST/SGOT) 19, Alanine Aminotransferase (ALT/SGPT) 14, Alkaline Phosphatase 132H, Total Protein 5.7L, Albumin 2.0L, Albumin/Globulin Ratio 0.5, Thyroid Stimulating Hormone (TSH) 5.510H CBC/BMP Laboratory Tests 08/13/20 12:52 Microbiology Microbiology 08/13/20 Blood Culture, Received Pending 08/13/20 Blood Culture, Received Pending Assessment/Plan Patient is 75 years old male with past history of metastatic pancreatic cancer on supportive care, he had Whipple procedure, end-stage renal diseases on dialysis, recurrent small bowel obstruction, hypotension presented to the hospital with generalized weakness. Patient stated that after discharge on 08/11/20 from acute rehabilitation he became weak and had constipation for past 4 days. He became progressively weak yesterday and today and he missed dialysis which was planned today. Also patient complains of nausea and and few episodes of vomiting started since yesterday. In ER patient was found to have hemoglobin 12.3, no leukocytosis, creatinine 5.8. CT abd/pelvis There has been no significant change compared to the prior exam . A small bowel ileus is suspected status quo. 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 The patient was started on chemotherapy for his lung metastases with Gemzar and Abraxane, but patient did not tolerate chemotherapy On supportive care Follow-up with oncologist in the outpatient settings Palliative care on board (2) ESRD (end stage renal disease) Status: Chronic Problem Text: Dialysis tomorrow Nephrology team on board (3) Ileus, unspecified Status: Acute Problem Text: CT showed A small bowel ileus is suspected status quo. Patient complains of constipation for 4 days Fleet Enema (4) Hypotension Status: Acute Problem Text: Continue midodrine (5) Physical deconditioning Status: Chronic Problem Text: Secondary to multiple comorbidities ESRD, pancreatic cancer, PT/OT (6) Atrial fibrillation Status: Chronic Problem Text: Heart rate is under control Continue Eliquis 2.5 twice a day Plan / VTE VTE Prophylaxis Ordered?: Yes PREM LUNSFORD DO Aug 13, 2020 15:53
[2020-08-13] MEDS ORDERED: OXYC-517 PO (15:56)
[2020-08-13] MEDS ORDERED: PANT-23 PO (15:57)
[2020-08-13] MEDS ORDERED: FLEET ENEMA PR PRN (16:00)
[2020-08-13] MEDS: MIDODRINE 5 MG TAB PO SCH (18:00)
[2020-08-13] MEDS ORDERED: MIDODRINE 5 MG TAB PO SCH (21:00)
[2020-08-13] MEDS ORDERED: HEPARIN SOD (PORCINE) 5000UNITS/ML 1ML VIAL/SYRINGE SC SCH (21:00)
[2020-08-13 21:45] VITALS: BP 129/69
[2020-08-13] MEDS: APIXABAN 2.5 MG TAB (ELIQUIS) PO SCH (21:53)
[2020-08-14] MEDS: MIDODRINE 5 MG TAB PO SCH ×3 (05:38→18:28)
[2020-08-14 06:00] VITALS: BP 101/58
[2020-08-14] MEDS: ASPIRIN 81MG ENTERIC TABLET PO SCH (08:59)
[2020-08-14] MEDS: APIXABAN 2.5 MG TAB (ELIQUIS) PO SCH ×2 (09:00→20:29)
[2020-08-14] MEDS: PANTOPRAZOLE 40MG TAB (PROTONIX) PO SCH (09:00)
[2020-08-14] MEDS: SODIUM CHLORIDE 0.9% INJ 10 ML SYR IV SCH (09:01)
[2020-08-14] MEDS ORDERED: SODIUM CHLORIDE 0.9% 1000ML IV PRN (09:25)
--- NOTE | 2020-08-14 10:11 | ECGEPIP ---
[facility] - ED Test Date: 2020-08-13 Pat Name: LORENZA MENDEZ Department: Room: - Gender: Male Customer Experience Intern: CHCIHI : 1945 Requested By: Laina Whitney Order Number: [id number] Reading MD: Laina Whitney Measurements Intervals Fleming Rate: 85 P: 33 TX: 176 QRS: -3 QRSD: 70 T: 43 QT: 372 QTc: 442 Interpretive Statements Sinus rhythm with frequent premature ventricular complexes Anterior infarct , age undetermined NSTTW abnormalities prwp Electronically Signed on 08-14-2020 10:10:43 EDT by Laina Whitney
--- NOTE | 2020-08-14 12:20 | IPNPDOC ---
Text Note Date of Service The patient was seen on 08/14/20. NOTE Subjective: No any acute events overnight. I discussed with patient the goal of treatment, the patient told me he would like to discuss it with palliative care. Objective: GENERAL APPEARANCE: Ill looking male HEENT: no scleral icterus, plus JVD, EOMI CARDIOVASCULAR: Irregularly irregular LUNGS: Diminished lung sounds bilaterally ABDOMEN: soft & not tender w palpitation, and beef MUSCULOSKELETAL: +2 nonpitting edema INTEGUMENT: no generalized pallor NEUROLOGICAL: cranial nerve function from 2-12 intact intact Assessment/Plan Patient is 75 years old male with past history of metastatic pancreatic cancer on supportive care, he had Whipple procedure, end-stage renal diseases on dialysis, recurrent small bowel obstruction, hypotension presented to the [facility] with generalized weakness. Patient stated that after discharge on 08/11/20 from acute rehabilitation he became weak and had constipation for past 4 days. He became progressively weak yesterday and today and he missed dialysis which was planned today. Also patient complains of nausea and and few episodes of vomiting started since yesterday. In ER patient was found to have hemoglobin 12.3, no leukocytosis, creatinine 5.8. CT abd/pelvis There has been no significant change compared to the prior exam . A small bowel ileus is suspected status quo. 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 The patient was started on chemotherapy for his lung metastases with Gemzar and Abraxane, but patient did not tolerate chemotherapy On supportive care Follow-up with oncologist in the outpatient settings Palliative care on board (2) ESRD (end stage renal disease) Dialysis today Nephrology team on board (3) Ileus, unspecified CT showed A small bowel ileus is suspected status quo. Continue Fleet Enema (4) Hypotension Continue midodrine (5) Physical deconditioning Secondary to multiple comorbidities ESRD, pancreatic cancer, PT/OT (6) Atrial fibrillation Heart rate is under control Continue Eliquis 2.5 twice a day VS,Fishbone, I+O VS, Fishbone, I+O Laboratory Tests 08/13/20 12:52 Vital Signs Date Time Temp Pulse Resp B/P (MAP) Pulse Ox O2 Delivery O2 Flow Rate FiO2 08/14/20 06:00 97.4 85 17 101/58 (72) 96 Room Air I&O- Last 24 Hours up to 6 AM 08/14/20 06:00 Intake Total 850 ml Balance 850 ml PREM LUNSFORD DO Aug 14, 2020 12:20
[2020-08-14 13:18] LABS: BASO # 0.1 10^3/uL (0.0-0.2); BASO % 0.5 % (0.0-1.0); EOS # 0.1 10^3/uL (0.0-0.5); EOS % 0.7 % (0.0-3.0); HEMATOCRIT 39.8 % (42.0-52.0); HEMOGLOBIN 11.8 g/dl (13.5-17.5); LYMPH # 0.5 10^3/uL (1.5-5.0); LYMPH % 4.5 % (24.0-44.0); MEAN CORPUSCULAR HEMOGLOBIN 28.4 pg (27.0-33.0); MEAN CORPUSCULAR HGB CONC 29.6 g/dl (32.0-36.5); MEAN CORPUSCULAR VOLUME 95.9 fl (80.0-96.0); MONO # 0.6 10^3/uL (0.0-0.8); MONO % 5.2 % (2.0-8.0); NEUTROPHILS # 9.7 10^3/uL (1.5-8.5); NEUTROPHILS % 87.9 % (36.0-66.0); PLATELET COUNT, AUTOMATED 306 10^3/uL (150-450); RED BLOOD COUNT 4.15 10^6/uL (4.30-6.10)
[2020-08-14] MEDS: ACETAMINOPHEN TAB 650MG DOSE (2X325MG) PO PRN (13:48)
[2020-08-14 14:00] VITALS: BP 106/66
--- NOTE | 2020-08-14 17:32 | CR ---
CONSULTATION DATE: 08/14/2020 REQUESTING PHYSICIAN: Dr. Mathew Jones CONSULTING PHYSICIAN: Dr. Heide Parker REASON FOR CONSULTATION: Management of end-stage renal disease, on hemodialysis. CHIEF COMPLAINT: Weakness. HISTORY OF PRESENT ILLNESS: Michele Acosta is well known to me. He is a 75-year-old male with a past medical history of end-stage renal disease, on hemodialysis, metastatic pancreatic cancer, which is indolent in nature, status post Whipple procedure back in 2000, history of small-bowel obstruction, history of recurrent pleural effusion, anemia of chronic renal failure, and other comorbid conditions mentioned below. Patient was discharged from acute rehabilitation unit on August 11, and he was now readmitted to [facility] on August 13 after presenting to the emergency room with complaint of progressive and worsening weakness and fatigue, and he notes he missed his last hemodialysis treatment. Patient also complains of ongoing nausea and generally poor appetite and weight loss. In the emergency room he is found to be hemodynamically stable, and laboratory studies are also unrevealing with no significant changes. He is being readmitted for concern of ongoing small-bowel ileus. Nephrology evaluation was requested for help in the management of his chronic renal failure and dialysis. MEDICAL HISTORY: 1. End-stage renal disease, on hemodialysis. 2. History of pancreatic cancer status post Whipple in 2000. 3. History of small-bowel obstruction. 4. Hydropneumothorax. 5. Tobacco use. 6. History of thrombosis. 7. Anemia of chronic renal failure. 8. Hypotension. 9. Pulmonary hypertension. 10. Hiatal hernia. SURGICAL HISTORY: 1. Status post tunneled dialysis catheter. 2. History of arteriovenous (AV) graft in the left arm, which is not working now. 3. PleurX catheter placement. 4. Bronchoscopy. 5. Whipple procedure in 2000 at [facility]. 6. Patient also had a left-sided chest tube in May 2020. FAMILY HISTORY: No significant family history of end-stage renal failure. SOCIAL HISTORY: He denies any current drug or alcohol use, but he does admit to smoking. ALLERGIES: No known drug allergies. HOME MEDICATIONS: Reviewed and include Eliquis, aspirin, midodrine, Protonix, oxycodone. REVIEW OF SYSTEMS: CONSTITUTIONAL: Reports weakness and fatigue. Denies fevers. EYES: Denies visual changes or tearing. ENT: Denies rhinorrhea, epistaxis. SKIN: Denies any new rashes or lesions. PULMONARY: Denies any shortness of breath. Has history of recurrent pleural effusion. CARDIAC: Denies chest pain or palpitations. GASTROINTESTINAL: Reports poor oral intake and recent ileus. GENITOURINARY: Reports dysuria. HEMATOLOGIC: Reports anticoagulant use and history of clots. ENDOCRINE: Denies diabetes. Reports secondary hyperparathyroidism. MUSCULOSKELETAL: Reports muscle wasting and weakness. NEUROLOGIC: Denies seizure or syncope. PHYSICAL EXAMINATION: VITAL SIGNS: Temperature 97.4, pulse 85, respiratory rate 17, blood pressure 101/58, saturating 96% on room air. GENERAL: Patient is seen in the hemodialysis unit receiving his treatment. Elderly man, weak and chronically ill appearing with bitemporal wasting. Extraocular muscles are intact. Tongue is moist. Neck is supple. Jugular veins are flat. There is a tunneled hemodialysis catheter is use. HEART: Sounds are regular, S1, S2. There is absolutely no leg edema nor any peripheral edema. Lungs show symmetric air entry. No crackle or rale. ABDOMEN: soft and nontender. EXTREMITIES: show decreased muscle mass and muscle wasting, but there is no edema or cyanosis. NEUROLOGIC: He is oriented times three, conversational, at baseline mentation. PSYCHIATRIC: He is depressed. LABORATORY DATA: Sodium 135, potassium 4.9, bicarbonate 20, BUN 46. Hemoglobin 11.8, platelets 306. Microbiology: Blood cultures with no growth for 24 hours times [address] sets. [address] abdomen and pelvis done yesterday shows suspected status post small-bowel ileus INPATIENT MEDICATIONS: - Tylenol as needed - Eliquis 2.5 mg by mouth twice a day - aspirin 81 mg by mouth daily - midodrine 5 mg by mouth three times a day - Zofran as needed - oxycodone as needed - Protonix 40 mg by mouth daily - Fleet enema as needed PROBLEMS: 1. End-stage renal disease, on hemodialysis. Patient missed his dialysis treatment because of worsening generalized fatigue and exhaustion, and he is dialyzed today. As usual, we are dialyzing for clearance only without any fluid removal. Hypotension of hemodialysis has been a recurrent problem, and he continues on midodrine for blood pressure support, and I would plan to give him albumin with his next dialysis treatment in order to keep his blood pressures more stable. His long-term prognosis is poor, and patient has a picture of failure to thrive. 2. Hypotension with hypotension of hemodialysis. Continue midodrine 5 mg three times a day. His blood cultures showed no growth for 24 hours. I am adding on a urine culture as well, as the patient is complaining of dysuria. 3. Ileus. Diet orders are deferred to the primary service. CT scan is noted. I am dialyzing the patient for clearance only without any fluid removal. 4. Chronic anticoagulation and hx of clotting - he continues on low dose eliquis. 5. Anemia of CKD and malignancy - Hgb is 11.8 and no need of LUDIN therapy at present. MTDD
[2020-08-14 18:29] VITALS: BP 105/66
[2020-08-14] MEDS ORDERED: BISACODYL 5 MG TAB PO ONE (18:45)
[2020-08-14] MEDS ORDERED: BISACODYL 10 MG SUPP PR ONE (18:45)
[2020-08-14 19:37] LABS: BILIRUBIN,TOTAL 0.3 MG/DL (0.2-1.0); CALCIUM LEVEL 8.2 MG/DL (8.8-10.2); CREATININE FOR GFR 3.25 MG/DL (0.70-1.30); GLOMERULAR FILTRATION RATE 19.8 (>42); MAGNESIUM LEVEL 1.9 MG/DL (1.8-2.4); POTASSIUM SERUM 3.7 MEQ/L (3.5-5.1); TOTAL PROTEIN 5.5 GM/DL (6.4-8.2)
[2020-08-14 22:00] VITALS: BP 102/63
[2020-08-15 06:00] VITALS: BP 99/70
[2020-08-15] MEDS: MIDODRINE 5 MG TAB PO SCH ×3 (06:12→18:34)
--- NOTE | 2020-08-15 08:25 | REP ---
INDICATION: ileus. COMPARISON: Comparison radiograph is from July 21, 2020. Comparison is made with August 13, 2020 CT images.. TECHNIQUE: Single supine KUB. FINDINGS: There are multiple clips scattered in the central and right upper quadrant of the abdomen. There is air and stool in the descending sigmoid and rectal segments of the colon without colonic distention. There is some air in the transverse and ascending colon. There are scattered loops of air-filled small bowel in the central abdomen borderline in caliber consistent with mild ileus. No mass or organomegaly is seen. No pathologic calcification is observed. The right psoas margin is not seen due to bowel gas. Left psoas and bilateral flank stripes appear intact. IMPRESSION: Findings consistent with mild ileus. Postoperative changes in the upper abdomen. <Electronically signed by Edwin Wood > 08/15/20 [id number]
[2020-08-15] MEDS: PANTOPRAZOLE 40MG TAB (PROTONIX) PO SCH (09:33)
[2020-08-15] MEDS: APIXABAN 2.5 MG TAB (ELIQUIS) PO SCH ×2 (09:33→20:05)
[2020-08-15] MEDS: ASPIRIN 81MG ENTERIC TABLET PO SCH (09:33)
[2020-08-15] MEDS: SODIUM CHLORIDE 0.9% INJ 10 ML SYR IV SCH (09:34)
[2020-08-15] MEDS: BISACODYL 5 MG TAB PO SCH (09:34)
[2020-08-15 11:39] LABS: BILIRUBIN, URINE MANUAL NEGATIVE (NEGATIVE); GLUCOSE, URINE (UA) MANUAL NEGATIVE (NEGATIVE); KETONE, URINE MANUAL NEGATIVE (NEGATIVE); UROBILINOGEN, URINE MANUAL NORMAL (NORMAL)
[2020-08-15 11:45] LABS: RBC, URINE 0-1 /hpf (0-3); SQUAMOUS EPITHELIAL CELL URINE NONE SEEN /hpf (SMALL AMT)
[2020-08-15 11:46] LABS: AMORPHOUS SEDIMENT, URINE MOD AMOUNT (NEGATIVE); BACTERIA, URINE SMALL AMOUNT
[2020-08-15] MEDS ORDERED: METOCLOPRAMIDE INJ 10MG/2ML VIAL (J2765 PER 1) IV PRN (12:30)
--- NOTE | 2020-08-15 12:43 | IPNPDOC ---
Text Note Date of Service The patient was seen on 08/15/20. NOTE Subjective: No any acute events overnight. Patient complains of continuous na usea since yesterday evening. He denies any fever or chills Objective: GENERAL APPEARANCE: Ill looking male HEENT: no scleral icterus, no JVD, EOMI CARDIOVASCULAR: S1S2 LUNGS: Diminished lung sounds bilaterally, left Pleurx catheter in place ABDOMEN: soft & not tender w palpitation MUSCULOSKELETAL: no cyanosis, no swelling INTEGUMENT: no generalized pallor NEUROLOGICAL: cranial nerve function from 2-12 intact intact, follows commands, speech not dysarthric Assessment/Plan Patient is 75 years old male with past history of metastatic pancreatic cancer on supportive care, he had Whipple procedure, end-stage renal diseases on dialysis, recurrent small bowel obstruction, hypotension presented to the hospital with generalized weakness. Patient stated that after discharge on 08/11/20 from acute rehabilitation he became weak and had constipation for past 4 days. He became progressively weak yesterday and today and he missed dialysis which was planned today. Also patient complains of nausea and and few episodes of vomiting started since yesterday. In ER patient was found to have hemoglobin 12.3, no leukocytosis, creatinine 5.8. CT abd/pelvis There has been no significant change compared to the prior exam . A small bowel ileus is suspected status quo. 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 The patient was started on chemotherapy for his lung metastases with Gemzar and Abraxane, but patient did not tolerate chemotherapy On supportive care Follow-up with oncologist in the outpatient settings Palliative care on board (2) ESRD (end stage renal disease) Nephrology team on board UA showed pyuria, however patient does not have suprapubic tenderness or burning during urination. We'll check UA culture. (3) Ileus, unspecified CT showed A small bowel ileus is suspected status quo. Patient complains of constipation for 4 days On 08/15/20 abdomen x-ray showed Findings consistent with mild ileus. Postoperative changes in the upper abdomen. Continue Fleet Enema, senna, Dulcolax (4) Hypotension Continue midodrine (5) Physical deconditioning Secondary to multiple comorbidities ESRD, pancreatic cancer, PT/OT (6) Atrial fibrillation Heart rate is under control Continue Eliquis 2.5 twice a day Protein calorie malnutrition Patient has muscle wasting, hypoalbuminemia Telephone Quotation Clerk consult Chronic pleural effusion Secondary to malignancy Patient has a Pleurx catheter to drain it every 2 days VS,Fishbone, I+O VS, Fishbone, I+O Laboratory Tests 08/14/20 12:52 Vital Signs Date Time Temp Pulse Resp B/P (MAP) Pulse Ox O2 Delivery O2 Flow Rate FiO2 08/15/20 06:00 98.2 87 18 99/70 (80) 94 Room Air I&O- Last 24 Hours up to 6 AM 08/15/20 06:00 Intake Total 450 ml Output Total 0 ml Balance 450 ml PREM LUNSFORD DO Aug 15, 2020 12:43
[2020-08-15 14:00] VITALS: BP 102/68
--- NOTE | 2020-08-15 15:09 | IPN ---
PROGRESS NOTE DATE: 08/15/2020 SUBJECTIVE: The patient is seen and examined this morning at bedside. He was complaining of dysuria. The nursing staff straight-catheterized him and got 400 mL of chisholm-colored urine which is being sent for urine culture. The patient had a persistent hypotension of hemodialysis yesterday and I discussed with him that we will probably give him albumin with his next treatment. I also attempted to discuss code status with the patient again today. OBJECTIVE: VITAL SIGNS: Temperature 97.2, pulse 82, respiratory rate 17, blood pressure 102/68, saturating 95% on room air. Intake yesterday was 600. Weight on the bed scale today is not recorded. GENERAL: The patient is seen lying in bed, elderly male with bitemporal wasting, awake, alert, oriented x3 at baseline mentation. Appears chronically ill and fatigued. HEENT: Extraocular muscles are intact. Tongue is moist. Neck is supple. Jugular veins are not elevated. There is a pleural catheter on the left side. HEART: Heart sounds are regular. S1, S2. LUNGS: Symmetric air entry. He is comfortable on room air. ABDOMEN: Soft and nontender. EXTREMITIES: Extremities show significant muscle wasting and reduced lean muscle mass and trace pedal edema. NEUROLOGIC: He is oriented times three, at baseline mentation. He follows commands. He is cooperative. PSYCHIATRIC: He is depressed. LABS: White count 11.0, hemoglobin 11.8, platelets 306. Sodium 142, potassium 3.7, bicarbonate 26. Abdominal x-ray done today: Findings consistent with mild ileus. INPATIENT MEDICATIONS: Reviewed by myself. I note he was given: 1. Dulcolax tablet and Dulcolax suppository. 2. Reglan as needed. 3. Zofran as needed. 4. He was started on Protonix 40 mg by mouth daily. 5. His remainder of medications are all unchanged as compared to yesterday. PROBLEMS: 1. End-stage renal disease. The patient is off his usual dialysis schedule. He will next be dialyzed on Tuesday. He is having trouble with hypotension of hemodialysis. We dialyzed him for clearance only with minimal fluid removal. Even then, his blood pressures are very soft on dialysis. Systolic 70s to 80s. He may require albumin support with dialysis. I have discussed with him that he is having progressive failure to thrive and deconditioning. 2. Hypotension of hemodialysis. Continue Midodrine. 3. Hypoalbuminemia and protein calorie malnutrition. The patient has indolent metastatic pancreatic cancer and over the past several months has progressively gotten more and more deconditioned and weaker. Presently he has an ileus and ongoing poor intake. 4. Dysuria. The patient was complaining of dysuria and nursing staff straight catheterized him with 400 mL of chisholm urine returning, and urine culture is pending. 5. Ileus managed by the primary service. He is receiving enemas and laxatives and has had ongoing poor intake.
[2020-08-15 22:00] VITALS: BP 92/60
[2020-08-16] VITALS (8 sets, daily range): BP systolic 60–104; BP diastolic 30–64
[2020-08-16] MEDS: ASPIRIN 81MG ENTERIC TABLET PO SCH (05:46)
[2020-08-16] MEDS: BISACODYL 5 MG TAB PO SCH (05:47)
[2020-08-16] MEDS: APIXABAN 2.5 MG TAB (ELIQUIS) PO SCH ×2 (05:47→21:54)
[2020-08-16] MEDS: MIDODRINE 5 MG TAB PO SCH ×3 (05:48→17:17)
[2020-08-16] MEDS: PANTOPRAZOLE 40MG TAB (PROTONIX) PO SCH (05:48)
[2020-08-16] MEDS: SODIUM CHLORIDE 0.9% INJ 10 ML SYR IV SCH (05:49)
[2020-08-16] MEDS ORDERED: FLUCONAZOLE 100 MG TAB PO SCH (09:00)
[2020-08-16 09:18] LABS: HEMATOCRIT 40.5 % (42.0-52.0); MEAN CORPUSCULAR HEMOGLOBIN 28.4 pg (27.0-33.0); MEAN CORPUSCULAR HGB CONC 29.6 g/dl (32.0-36.5); MEAN CORPUSCULAR VOLUME 95.7 fl (80.0-96.0); PLATELET COUNT, AUTOMATED 317 10^3/uL (150-450); RED BLOOD COUNT 4.23 10^6/uL (4.30-6.10); WHITE BLOOD COUNT 15.3 10^3/uL (4.0-10.0)
[2020-08-16 09:51] LABS: ALBUMIN 1.8 GM/DL (3.2-5.2); CALCIUM LEVEL 7.9 MG/DL (8.8-10.2); CREATININE FOR GFR 5.9 MG/DL (0.70-1.30); GLOMERULAR FILTRATION RATE 9.9 (>42); POTASSIUM SERUM 4.6 MEQ/L (3.5-5.1)
[2020-08-16] MEDS: ONDANSETRON 4MG/2ML VIAL IV PRN (14:42)
[2020-08-16] MEDS: SENOKOT S TAB PO SCH ×2 (14:57→20:51)
[2020-08-16] MEDS: BISACODYL 10 MG SUPP PR SCH (14:58)
--- NOTE | 2020-08-16 17:54 | IPN ---
PROGRESS NOTE DATE: 08/16/2020 SUBJECTIVE: Mr. Acosta was seen this morning during hemodialysis. He is not feeling good and remains very weak. His appetite is poor and is not eating much. He denies any vomiting or diarrhea. PHYSICAL EXAMINATION: Temperature 98 degrees Fahrenheit, heart rate 84 per minute, respiratory rate 18 per minute, blood pressure 94/52 mmHg, oxygen saturation 93% on room air. HEAD: Atraumatic. Oral mucosa is dry. NECK: Supple and jugular venous distention (JVD) not abnormally elevated. HEART SOUNDS: Regular. LUNGS: Diminished breath sounds at left base. ABDOMEN: Soft. Bowel sounds are present. EXTREMITIES: Without any cyanosis or clubbing. LABORATORY STUDIES: Today's labs drawn during dialysis revealed a sodium of 137, potassium 4.6, BUN 48 and creatinine 5.9, calcium 7.9 and phosphorus 6.0. Albumin level 1.8. WBC is up to 15.3, hemoglobin 12.0 and hematocrit 40.5, platelets 317. PROBLEMS: 1. End-stage renal disease. Patient is being dialyzed today and he is tolerating dialysis, though blood pressure is chronically low. We are not removing any fluid. 2. Protein calorie malnutrition. This is a chronic issue and getting worse, as he is not eating much. We can try Nepro one can twice a day for him to drink, if that would help to improve his nutrition. 3. Leukocytosis. Concern about possibility of infection. He does have history of metastatic pancreatic cancer and also has a PleurX catheter in his left chest. 4. Pancreatic cancer with metastatic disease. Long-term prognosis remains poor. Patient has declined to sign DO NOT RESUSCITATE (DNR). At present, he is not receiving any chemotherapy. He is not even suitable for chemotherapy because of his deteriorating overall condition and end-stage renal disease.
[2020-08-16] MEDS ORDERED: LR 250 ML IV ONE ×2 (20:35→20:55)
--- NOTE | 2020-08-16 21:18 | IPNPDOC ---
Subjective Date Seen The patient was seen on 08/16/20. Subjective Chief Complaint/HPI Pateint went for HD today. Very hypotensive after HD and confused and hallucinating. Continued to have vomiting. Denies any abdominal pain. Had a large bowel movement today. Objective Physical Examination General Exam: Positive: Cooperative, No Acute Distress, Other (cofused) Eye Exam: Positive: PERRLA ENT Exam: Positive: Atraumatic, Mucous membr. moist/pink Neck Exam: Positive: Supple; Negative: JVD Chest Exam: Positive: Clear to auscultation Heart Exam: Positive: Tachycardic, Irregular Rhythm; Negative: Gallops, Murmurs, Rubs Telemetry: Positive: Atrial fibrillation Abdomen Exam: Positive: BS Hyperactive (with some tinkling sounds), Soft; Negative: Tenderness Extremity Exam: Negative: Clubbing, Cyanosis, Edema Neuro Exam: Positive: Cranial Nerves 3-12 NL Assessment /Plan Assessment Patient is a 75 years old male with past history of metastatic pancreatic cancer on supportive care, Whipple procedure in 2000, end-stage renal diseases on dialysis, recurrent small bowel obstruction, hypotension presented to the hospital with generalized weakness. Patient was discharged on 08/11/20 from acute rehabilitation but after reaching home he was too weak to get out of bed to stand or walk. He could not make to HD on 08/13/20 due to extreme weakness. He was also constipated for 4 days associated with nausea and vomiting. Patient was admitted for failure to thrive, small bowel ileus, debility with metastatic pancreatic CA. Metabolic encephalopathy likely due to progressing cancer, hypotension patient is confused Chronic hypotension Bp even after midodrine low at 60/40 Will increase dose of Midodrine Small bowel ileus patient has h/o recurrent small bowel obstruction for years which started after wipples procedure. last episode of SBO with contained perforation was in June 2020. Now still continues to have persistent / recurrent ileus with recurrent vomiting. will avoid constipation. continue bowel regimen. Pancreatic adenocarcinoma with mets to the bilateral lung and chronic left hydropneumothorax. He was initially diagnosed in 2000 & had Whipple and chemoradiation; in 2014 there was recurrence in the lungs. 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 After that went on chemo holiday. Ca-19-9 continued to rise but he did not want to restart chemo. In April 2020 developed left pleural effusion had thoracocentesis. Again declined resuming chemo in Apr; per recent note 05/30/20 the patient last completed active treatment in apr 2017 Chronic left hydropneumothorax. 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 will continue with pleurx cath draining every other day. ESRD due to chemotherapy MWF via permacath Nephro following UTI uc with yeast started on fluconazole. Atrial fibrillation on eliquis. Chronic anemia anemia of chronic disease Debility / Deconditioning/ failure to thrive unable to walk anymore. Was in ARU for 10 days from 08/01 to 08/12 however could not get out of [facility]vey car when he reached home so was brought back to the hospital and readmitted on 08/13/20 will need to go into STR. BPH. Advance directives: Patient confused very hypotensive after HD. Discussed with Nilsa regarding poor prognosis and she wanted patietn to be DNR and DNI. Molst form updated. Plan/VTE VTE Prophylaxis Ordered?: Yes VS, I&O, 24H, Fishbone Vital Signs/I&O Vital Signs Date Time Temp Pulse Resp B/P (MAP) Pulse Ox O2 Delivery O2 Flow Rate FiO2 08/16/20 14:00 97.7 69 18 93/57 (69) 97 Room Air I&O- Last 24 Hours up to 6 AM 08/16/20 07:00 Intake Total 160 ml Output Total 950 ml Balance -790 ml Laboratory Data 24H LABS Laboratory Tests 2 08/16/20 08:30: Nucleated Red Blood Cells % (auto) 0.1H, Anion Gap 16, Glomerular Filtration Rate 9.9L, Calcium Level 7.9L, Phosphorus Level 6.0H, Albumin 1.8L CBC/BMP Laboratory Tests 08/16/20 08:30 Microbiology Microbiology 08/15/20 Urine Culture - Final, Complete Yeast Like Organism 08/13/20 Respiratory Virus Panel (PCR) (SAB[facility]) - Final, Complete 08/13/20 Blood Culture - Preliminary, Resulted No Growth after 72 hours. All specime... 08/13/20 Blood Culture - Preliminary, Resulted No Growth after 72 hours. All specime... HUSSEIN FRANCO MD Aug 16, 2020 21:18
--- NOTE | 2020-08-16 21:39 | REPVR ---
PROCEDURE INFORMATION: Exam: XR Chest Exam date and time: 08/16/2020 9:21 PM Age: 75 years old Clinical indication: Chest pain; Additional info: Hypoxia TECHNIQUE: Imaging protocol: XR of the chest. Views: 1 view. COMPARISON: [place] PORTABLE CHEST X-RAY 07/17/2020 2:09 PM FINDINGS: Tubes, catheters and devices: A right-sided central line is in place with its tip in the superior vena cava. The left-sided catheter has its tip ending in the midline unchanged but an unusual location. Left thorax: There is a large left hydropneumothorax with a left-sided chest tube. The amount of fluid on the left has increased. There is an increase in consolidation of lung left parahilar region and left lung base since 07/17/2020. IMPRESSION: 1. There is a left-sided hydropneumothorax with an increase in the amount of fluid. Left-sided chest tube noted. 2. Since the examination of June there is increasing consolidation of lung at the left parahilar region and left lung base consistent with atelectasis and pneumonia. 3. Large gauge left-sided central line has its tip in the midline an unusual position. Electronically signed by: Bobby Urrutia On 08/16/2020 21:39:45 PM
[2020-08-16] MEDS ORDERED: NS 500 ML IV ONE (23:05)
--- NOTE | 2020-08-16 23:27 | ECGEPIP ---
[facility] Test Date: 2020-08-16 Pat Name: LORENZA MENDEZ Department: Room: [place] [address] Gender: Male Hide Trimmer: SELENE : 1945 Requested By: BEN Foy Order Number: [id number] Reading MD: Nav Alston Measurements Intervals [place] Rate: 91 P: 111 OH: 164 QRS: -17 QRSD: 72 T: -57 QT: 432 QTc: 531 Interpretive Statements Poor data quality, interpretation may be adversely affected Sinus rhythm with premature ventricular contractions Low voltage QRS, limb leads Possible Inferior infarct , age undetermined vs artifact Possible Anterolateral infarct , age undetermined vs Poor R wave progression Compared to prior tracings (3) in the system, artifact on the baseline Electronically Signed on 08-16-2020 23:27:35 EDT by Nav Alston
[2020-08-17] VITALS (11 sets, daily range): BP systolic 63–94; BP diastolic 42–60
[2020-08-17] MEDS: PIPERACILLIN/TAZOBACTAM SOD 2.25 GM in D5W MINI-BAG PLUS 50 ML IV SCH ×4 (00:12→23:16)
[2020-08-17] MEDS: ACETAMINOPHEN TAB 650MG DOSE (2X325MG) PO PRN (00:15)
[2020-08-17] MEDS ORDERED: NS 1,000 ML IV ONE (02:55)
[2020-08-17] MEDS: MIDODRINE 5 MG TAB PO SCH ×3 (06:47→17:50)
[2020-08-17 07:09] LABS: HEMATOCRIT 34.1 % (42.0-52.0); MEAN CORPUSCULAR HEMOGLOBIN 28.6 pg (27.0-33.0); MEAN CORPUSCULAR HGB CONC 29.6 g/dl (32.0-36.5); MEAN CORPUSCULAR VOLUME 96.6 fl (80.0-96.0); RED BLOOD COUNT 3.53 10^6/uL (4.30-6.10); WHITE BLOOD COUNT 14.4 10^3/uL (4.0-10.0)
[2020-08-17 07:10] LABS: HEMOGLOBIN 10.1 g/dl (13.5-17.5); PLATELET COUNT, AUTOMATED 198 10^3/uL (150-450)
[2020-08-17 07:30] LABS: CALCIUM LEVEL 7.3 MG/DL (8.8-10.2); CREATININE FOR GFR 4.4 MG/DL (0.70-1.30); POTASSIUM SERUM 4.2 MEQ/L (3.5-5.1); TROPONIN I 0.05 NG/ML (< 0.10)
[2020-08-17] MEDS ORDERED: PROCHLORPERAZINE 10MG/2ML VIAL (J0780 PER 1) IV PRN (07:50)
[2020-08-17] MEDS: APIXABAN 2.5 MG TAB (ELIQUIS) PO SCH ×2 (08:29→21:39)
[2020-08-17] MEDS: SENOKOT S TAB PO SCH ×2 (08:29→21:39)
[2020-08-17] MEDS: D5W/0.9% SODIUM CHLORIDE 1,000 ML IV SCH ×2 (08:29→21:39)
[2020-08-17] MEDS: ASPIRIN 81MG ENTERIC TABLET PO SCH (08:29)
[2020-08-17] MEDS: BISACODYL 10 MG SUPP PR SCH (08:30)
[2020-08-17] MEDS: PANTOPRAZOLE 40MG TAB (PROTONIX) PO SCH (08:30)
[2020-08-17] MEDS: BISACODYL 5 MG TAB PO SCH (08:30)
[2020-08-17] MEDS: SODIUM CHLORIDE 0.9% INJ 10 ML SYR IV SCH (08:31)
--- NOTE | 2020-08-17 10:11 | IPNPDOC ---
Subjective Date Seen The patient was seen on 08/17/20. Subjective Chief Complaint/HPI Patient reports that he is feeling a little better this morning. No nausea or vomiting. He is going to try to eat something though not hungry. Patient was very hypotensive overnight so was moved to PCU. Having bowel movements. Objective Physical Examination General Exam: Positive: Alert, Cooperative, No Acute Distress Eye Exam: Positive: PERRLA ENT Exam: Positive: Atraumatic, Mucous membr. moist/pink Neck Exam: Positive: Supple; Negative: JVD Chest Exam: Positive: Diminished (on the left with crackles), Other (crackles at both the bases) Heart Exam: Positive: Rate Normal, Irregular Rhythm; Negative: Gallops, Murmurs, Rubs Telemetry: Positive: Atrial fibrillation, Other Telemetry: (bigemini) Abdomen Exam: Positive: BS Hyperactive (with some tinkling sounds), Soft; Negative: Tenderness Extremity Exam: Negative: Clubbing, Cyanosis, Edema Neuro Exam: Positive: Cranial Nerves 3-12 NL Assessment /Plan Assessment Patient is a 75 years old male with past history of metastatic pancreatic cancer on supportive care, Whipple procedure in 2000, end-stage renal diseases on dialysis, recurrent small bowel obstruction, hypotension presented to the hospital with generalized weakness. Patient was discharged on 08/11/20 from acute rehabilitation but after reaching home he was too weak to get out of bed to stand or walk. He could not make to HD on 08/13/20 due to extreme weakness. He was also constipated for 4 days associated with nausea and vomiting. Patient was admitted for failure to thrive, small bowel ileus, debility with metastatic pancreatic CA. Acute on Chronic hypotension Bp even after midodrine low at 60/40 increased dose of Midodrine given IVF will continue Metabolic encephalopathy likely due to progressing cancer, hypotension patient is intermittently confused seems better this morning. Possible left atelectasis vs pneumonia started on zosyn Small bowel ileus patient has h/o recurrent small bowel obstruction for years which started after wipples procedure. last episode of SBO with contained perforation was in June 2020. Now still continues to have persistent / recurrent ileus with recurrent vomiting. will avoid constipation. continue bowel regimen. Pancreatic adenocarcinoma with mets to the bilateral lung and chronic left hydropneumothorax. He was initially diagnosed in 2000 & had Whipple and chemoradiation; in 2014 there was recurrence in the lungs. 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 After that went on chemo holiday. Ca-19-9 continued to rise but he did not want to restart chemo. In April 2020 developed left pleural effusion had thoracocentesis. Again declined resuming chemo in Apr; per recent note 05/30/20 the patient last completed active treatment in apr 2017 Chronic left hydropneumothorax. 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 will continue with pleurx cath draining every other day. ESRD due to chemotherapy MWF via permacath Nephro following UTI uc with yeast started on fluconazole. Atrial fibrillation on eliquis. Chronic anemia anemia of chronic disease Debility / Deconditioning/ failure to thrive unable to walk anymore. Was in ARU for 10 days from 08/01 to 08/12 however could not get out of the car when he reached home so was brought back to the hospital and readmitted on 08/13/20 will need to go into STR. BPH. Plan/VTE VTE Prophylaxis Ordered?: Yes VS, I&O, 24H, Fishbone Vital Signs/I&O Vital Signs Date Time Temp Pulse Resp B/P (MAP) Pulse Ox O2 Delivery O2 Flow Rate FiO2 08/17/20 08:34 88/60 (69) 97 Nasal Cannula 2.0 08/17/20 08:00 97.1 83 18 I&O- Last 24 Hours up to 6 AM 08/17/20 06:00 Intake Total 850 ml Output Total 600 ml Balance 250 ml Laboratory Data 24H LABS Laboratory Tests 2 08/16/20 20:34: Bedside Glucose (Misc Panel) 86 08/17/20 06:38: Nucleated Red Blood Cells % (auto) 0.0, Anion Gap 14, Glomerular Filtration Rate 14.0L, Calcium Level 7.3L, Troponin I 0.05 CBC/BMP Laboratory Tests 08/17/20 06:38 Microbiology Microbiology 08/15/20 Urine Culture - Final, Complete Yeast Like Organism 08/13/20 Respiratory Virus Panel (PCR) (SABAS) - Final, Complete 08/13/20 Blood Culture - Preliminary, Resulted No Growth after 72 hours. All specime... 08/13/20 Blood Culture - Preliminary, Resulted No Growth after 72 hours. All specime... HUSSEIN FRANCO MD Aug 17, 2020 10:11
--- NOTE | 2020-08-17 11:35 | IPN ---
PROGRESS NOTE DATE: 08/17/2020 SUBJECTIVE: Mr. Acosta is seen this morning on his bedside. I was called by the hospitalist physician under water assistant last evening as patient became hypotensive with blood pressure down to 74/48. He was given fluid bolus of 1 liter. A chest x-ray did show infiltrate on the left side and patient was started on Zosyn. This morning, he is feeling somewhat better. Blood pressure is still low, though improved compared to last evening. He has no fever or chills. He was dialyzed yesterday and we did not remove any fluid. PHYSICAL EXAMINATION: VITALS: Temperature 97 degrees Fahrenheit, heart rate 82 per minute, respiratory rate 18 per minute, blood pressure 88/60 mmHg and oxygen saturation 97% on 2 liter oxygen. HEENT: Head is atraumatic. Neck is supple and without JVD or thyroid enlargement. Dialysis catheter in front of left shoulder is present, without any signs of infection. LUNGS: Diminished breath sounds on the left side. HEART: Sounds are regular. ABDOMEN: Soft and nontender. Bowel sounds are normal. EXTREMITIES: Without any cyanosis or clubbing. NEUROLOGIC: He is at his baseline mentation. LABORATORY STUDIES: Today's labs show WBC 14.4, hemoglobin 10.1, hematocrit 34. Sodium 139, potassium 4.2, CO2 18, BUN 34, creatinine 4.4. PROBLEMS: 1. End-stage renal disease: Patient was dialyzed yesterday and will plan his next dialysis on Tuesday or Tuesday. No urgent need for dialysis today. 2. Hypotension: Patient has chronic hypotension and has been on Midodrine. This worsened due to ongoing pneumonia. He has been given 1 liter of I.V. fluid. At this point, we will watch and see how he does. Continue with Midodrine. 3. Pneumonia: Patient has been started on intravenous Zosyn. He is currently afebrile. 4. Left pleural effusion with metastatic pancreatic cancer: Patient most likely has malignant effusion. He has a PleurX catheter. His prognosis remains poor, however, patient has declined to sign a DNR.
[2020-08-17] MEDS: FLUCONAZOLE 100 MG in IV 1 EA IV SCH (12:24)
[2020-08-18] VITALS: BP 86/46
[2020-08-18 04:00] VITALS: BP 92/50
[2020-08-18] MEDS: MIDODRINE 5 MG TAB PO SCH ×4 (06:05→18:12)
[2020-08-18] MEDS: PIPERACILLIN/TAZOBACTAM SOD 2.25 GM in D5W MINI-BAG PLUS 50 ML IV SCH ×2 (06:05→15:02)
[2020-08-18 08:00] VITALS: BP 90/46
[2020-08-18] MEDS: SODIUM CHLORIDE 0.9% INJ 10 ML SYR IV SCH (09:00)
[2020-08-18] MEDS: BISACODYL 10 MG SUPP PR SCH (09:00)
[2020-08-18] MEDS: APIXABAN 2.5 MG TAB (ELIQUIS) PO SCH ×2 (09:37→21:10)
[2020-08-18] MEDS: ASPIRIN 81MG ENTERIC TABLET PO SCH (09:37)
[2020-08-18] MEDS: PANTOPRAZOLE 40MG TAB (PROTONIX) PO SCH (09:37)
[2020-08-18] MEDS: FLUCONAZOLE 100 MG in IV 1 EA IV SCH (09:37)
[2020-08-18] MEDS: BISACODYL 5 MG TAB PO SCH (09:37)
[2020-08-18] MEDS: SENOKOT S TAB PO SCH ×2 (09:37→21:09)
--- NOTE | 2020-08-18 09:40 | IPNPDOC ---
Subjective Date Seen The patient was seen on 08/18/20. Subjective Chief Complaint/HPI Patient is awake and alert today. Bps low but in his usual range. No nausea or vomiting today. He is trying to eat some breakfast. no fever or chills. Objective Physical Examination General Exam: Positive: Alert, Cooperative, No Acute Distress Eye Exam: Positive: PERRLA ENT Exam: Positive: Atraumatic, Mucous membr. moist/pink Neck Exam: Positive: Supple; Negative: JVD Chest Exam: Positive: Diminished (on the left with crackles), Other (crackles at both the bases) Heart Exam: Positive: Rate Normal, Irregular Rhythm; Negative: Gallops, Murmurs, Rubs Telemetry: Positive: Atrial fibrillation, Other Telemetry: (bigemini) Abdomen Exam: Positive: BS Hyperactive (with some tinkling sounds), Soft; Negative: Tenderness Extremity Exam: Negative: Clubbing, Cyanosis, Edema Neuro Exam: Positive: Cranial Nerves 3-12 NL Assessment /Plan Assessment Patient is a 75 years old male with past history of metastatic pancreatic cancer on supportive care, Whipple procedure in 2000, end-stage renal diseases on dialysis, recurrent small bowel obstruction, hypotension presented to the hospital with generalized weakness. Patient was discharged on 08/11/20 from acute rehabilitation but after reaching home he was too weak to get out of bed to stand or walk. He could not make to HD on 08/13/20 due to extreme weakness. He was also constipated for 4 days associated with nausea and vomiting. Patient was admitted for failure to thrive, small bowel ileus, debility with metastatic pancreatic CA. Acute on Chronic hypotension Bp even after midodrine low at 60/40 increased dose of Midodrine given IVF will continue Unsure if he will be able to tolerate HD as BP bottomed out to 60s/30s with confusion after last HD session even without any fluid removal Metabolic encephalopathy due to hypotension after HD seems better this morning. Possible left atelectasis vs pneumonia started on zosyn Small bowel ileus patient has h/o recurrent small bowel obstruction for years which started after wipples procedure. last episode of SBO with contained perforation was in June 2020. Now still continues to have recurrent ileus with some days of vomiting. will avoid constipation. continue bowel regimen. Pancreatic adenocarcinoma with mets to the bilateral lung and chronic left hydropneumothorax. He was initially diagnosed in 2000 & had Whipple and chemoradiation; in 2014 there was recurrence in the lungs. 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 After that went on chemo holiday. Ca-19-9 continued to rise but he did not want to restart chemo. In April 2020 developed left pleural effusion had thoracocentesis. Again declined resuming chemo in Apr; per recent note 05/30/20 the patient last completed active treatment in apr 2017 Chronic left hydropneumothorax. 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 will continue with pleurx cath draining every other day. ESRD due to chemotherapy MWF via permacath Nephro following UTI uc with yeast started on fluconazole. Atrial fibrillation on eliquis. Chronic anemia anemia of chronic disease Debility / Deconditioning/ failure to thrive unable to walk anymore. Was in ARU for 10 days from 08/01 to 08/12 however could not get out of the car when he reached home so was brought back to the hospital and readmitted on 08/13/20 will need to go into STR. BPH. Plan/VTE VTE Prophylaxis Ordered?: Yes VS, I&O, 24H, Fishbone Vital Signs/I&O Vital Signs Date Time Temp Pulse Resp B/P (MAP) Pulse Ox O2 Delivery O2 Flow Rate FiO2 08/18/20 08:00 97.6 77 22 90/46 (61) 96 Room Air I&O- Last 24 Hours up to 6 AM 08/18/20 06:00 Intake Total 2425 ml Output Total 551 ml Balance 1874 ml Laboratory Data Microbiology Microbiology 08/15/20 Urine Culture - Final, Complete Yeast Like Organism 08/13/20 Respiratory Virus Panel (PCR) ([facility]ABAS) - Final, Complete 08/13/20 Blood Culture - Preliminary, Resulted No Growth after 72 hours. All specime... 08/13/20 Blood Culture - Preliminary, Resulted No Growth after 72 hours. All specime... HUSSEIN FRANCO MD Aug 18, 2020 09:40
--- NOTE | 2020-08-18 11:07 | IPNPDOC ---
Subjective General Date/Time Seen The patient was seen on 08/18/20 at 10:58. Subject Chief Complaint/History The patient is a 75-year-old male admitted with a reason for visit of Esrd,Ileus Unspecified. SUBJECTIVE: Patient was seen and examined at the bedside this morning. He states he feels fine and denies any lightheadedness or dizziness despite his blood pressure continuing to be low. He has no other complaints, no nausea, no vomiting, no abdominal pain. He denies any shortness of breath chest pain. OBJECTIVE: PHYSICAL EXAMINATION: VITAL SIGNS: see below GENERAL: alert and oriented, appears quite cachectic, in no apparent distress, pleasant and conversant in full sentences. HEENT: PERRL, EOMI, Oral mucous membranes are moist without lesions. NECK: The patient has no noted JVD. No adenopathy is appreciated. No thyromegaly CHEST/LUNGS: Lungs are clear bilaterally without rhonchi, rales, or wheezes. There is no subcutaneous air appreciated. There is no tenderness to the chest wall. Tunneled HD catheter in place. PleurX catheter in place. HEART:Regular rate and rhythm. No murmurs, rubs, or gallops are appreciated. Distal pulses are 2+. No carotid bruits appreciated. ABDOMEN: Soft, nontender, and nondistended. Bowel sounds are positive. No organomegaly is appreciated. No masses are appreciated. There are no peritoneal signs. There is no [place] sign. EXTREMITIES: No peripheral edema. There is no focal long bone tenderness or de formity. SKIN: The patients skin is warm and dry, without rashes or lesions. PSYCHIATRIC: AAO x 3, normal mood/affect NEUROLOGIC: The patient has 5/5 strength to the upper and lower extremities bilaterally. Sensation is intact throughout. Deep tendon reflexes are 2+ in all four extremities. There are no deficits to the cranial nerves. IMAGING: No new imaging ASSESSMENT: This is a 75-year-old male with history of metastatic pancreatic cancer status post Whipple procedure in 2000 with recurrent malignant pleural effusions, end- stage renal disease on dialysis who was recently in the acute rehabilitation unit transferred to the medical floor for weakness and hypotension. PLAN: 1. End-stage renal disease on hemodialysis: -Plan for next dialysis tomorrow. No urgent need for dialysis today. Will likely undergo ultrafiltration with no fluid removal 2. Hypotension: -Blood pressure this morning 90/46. -Continue Midodrine -Currently receiving IV fluids D5/NS 60 cc/hr 3. Possible pneumonia: -Patient is currently on IV Zosyn per primary team 4. Left recurrent malignant pleural effusion requiring drainage every 48 hours: -Continue drainage DISPO: Given patient's hypotension and poor prognostic factors considering his malignancy, we feel it is apporopriate for patient to consider hospice referral at this time. Current Medications Current Medications Current Medications Medications (Trade) Dose Ordered Sig/Dejan Route PRN Reason Start Time Stop Time Status Last Admin Dose Admin Acetaminophen (Tylenol Tab) 650 mg Q4H PRN PO PAIN OR FEVER 08/13/20 15:45 08/17/20 00:15 Apixaban (Eliquis) 2.5 mg BID PO 08/13/20 21:00 08/18/20 09:37 Aspirin (Ecotrin) 81 mg DAILY PO 08/14/20 09:00 08/18/20 09:37 Bisacodyl (Dulcolax Suppository) 10 mg DAILY FL 08/16/20 09:00 Bisacodyl (Dulcolax Tab) 10 mg DAILY PO 08/15/20 09:00 08/18/20 09:37 Dextrose/Sodium Chloride 1,000 ml @ 60 mls/hr [id number] IV 08/17/20 08:00 08/17/20 21:39 Fluconazole (Diflucan Tablet) 100 mg DAILY PO 08/16/20 09:00 08/17/20 07:55 DC 08/16/20 17:17 Fluconazole 100 mg/IV Miscellaneous Supplies 50 ml @ 50 mls/hr Q24H IV 08/17/20 10:00 08/18/20 09:37 Heparin Sodium (Heparin (Flush)) 500 units ASDIRECTED PRN IV SEE LABEL COMMENTS 08/14/20 04:00 08/16/20 14:48 Heparin Sodium (Heparin (Flush)) 500 units DAILY IV 08/14/20 09:00 08/16/20 05:49 Heparin Sodium (Heparin) Please refer to ... ASDIRECTED XX 08/14/20 09:25 08/15/20 09:24 DC Heparin Sodium (Heparin) dose as per volume indica... ASDIRECTED PRN IV SEE LABEL COMMENTS 08/14/20 09:25 08/15/20 09:24 DC Heparin Sodium (Porcine) (Heparin) 5,000 units Q12H SC 08/13/20 21:00 08/13/20 16:18 DC Home Med (Med Rec Complete!) ASDIRECTED XX 08/13/20 16:00 08/13/20 16:00 DC Metoclopramide HCl (REGLAN INJection) 5 mg Q8HP PRN IV NAUSEA OR VOMITING 08/15/20 12:30 08/17/20 07:55 DC Midodrine (Proamatine) 5 mg BID PO 08/13/20 21:00 08/13/20 16:19 DC Midodrine (Proamatine) 5 mg TID@0600,1200,1800 PO 08/13/20 18:00 08/16/20 21:09 DC 08/16/20 17:17 Midodrine (Proamatine) 10 mg TID@0600,1200,1800 PO 08/17/20 06:00 08/18/20 06:05 Ondansetron HCl (ZOFRAN INJection) 4 mg Q4HP PRN IV NAUSEA OR VOMITING 08/14/20 09:40 08/16/20 14:42 Oxycodone HCl (Roxicodone, Oxyir) 5 mg Q4H PRN PO PAIN 08/13/20 15:50 Pantoprazole Sodium (Protonix) 40 mg DAILY PO 08/14/20 09:00 08/18/20 09:37 Piperacillin Sod/ Tazobactam Sod 2.25 gm/Dextrose 50 ml @ 100 mls/hr Q8H IV 08/16/20 23:00 08/18/20 06:05 Prochlorperazine (Compazine) 10 mg Q6HP PRN IV VOMITING 08/17/20 07:50 Senna/Docusate Sodium (Senokot S) 1 tab BID PO 08/16/20 09:00 08/18/20 09:37 Sodium Biphosphate/ Sodium Phosphate (Fleet Enema) 1 ea DAILYPRN PRN FL CONSTIPATION 08/13/20 16:00 08/16/20 06:57 DC Sodium Chloride 1,000 ml @ 100 mls/hr Q10H IV 08/13/20 12:35 08/13/20 16:18 DC 08/13/20 14:25 Sodium Chloride (Nacl 0.9%) 200 ml ASDIRECTED PRN IV SEE LABEL COMMENTS 08/14/20 09:25 08/15/20 09:24 DC Sodium Chloride (Saline Lock Flush) 10 ml ASDIRECTED PRN IV SEE LABEL COMMENTS 08/14/20 04:00 Sodium Chloride (Saline Lock Flush) 10 ml DAILY IV 08/14/20 09:00 08/16/20 05:49 Allergies Coded Allergies: No Known Allergies (Unverified , 07/27/18) VS,Fishbone, I+O VS, Fishbone, I+O Vital Signs Date Time Temp Pulse Resp B/P (MAP) Pulse Ox O2 Delivery O2 Flow Rate FiO2 08/18/20 08:00 97.6 77 22 90/46 (61) 96 Room Air I&O- Last 24 Hours up to 6 AM 08/18/20 06:00 Intake Total 2425 ml Output Total 551 ml Balance 1874 ml GME ATTESTATION GME ATTESTATION My faculty preceptor for this patient encounter was physically present during the encounter and was fully available. All aspects of the patient interview, examination, medical decision making process, and medical care plan development were reviewed and approved by the faculty preceptor. The faculty preceptor is aware and concurs with the plan as stated in the body of this note and will attest to such by his/her cosignature. LAURA GIRALDO MD Aug 18, 2020 11:07
[2020-08-18 12:00] VITALS: BP 82/48
[2020-08-18] MEDS: D5W/0.9% SODIUM CHLORIDE 1,000 ML IV SCH (12:18)
[2020-08-18 16:00] VITALS: BP 90/60
[2020-08-18] MEDS: FLUCONAZOLE 100 MG TAB PO SCH ×2 (18:00→18:12)
[2020-08-18 20:00] VITALS: BP 90/55
[2020-08-19] VITALS: BP 85/40
[2020-08-19] MEDS: PIPERACILLIN/TAZOBACTAM SOD 2.25 GM in D5W MINI-BAG PLUS 50 ML IV SCH ×4 (00:30→23:40)
[2020-08-19 04:00] VITALS: BP 82/40
[2020-08-19] MEDS: D5W/0.9% SODIUM CHLORIDE 1,000 ML IV SCH (04:15)
[2020-08-19] MEDS: MIDODRINE 5 MG TAB PO SCH ×3 (06:41→17:40)
[2020-08-19 08:00] VITALS: BP 88/50
[2020-08-19] MEDS: BISACODYL 5 MG TAB PO SCH (08:32)
[2020-08-19] MEDS: ASPIRIN 81MG ENTERIC TABLET PO SCH (08:32)
[2020-08-19] MEDS: SENOKOT S TAB PO SCH ×2 (08:32→20:13)
[2020-08-19] MEDS: SODIUM CHLORIDE 0.9% INJ 10 ML SYR IV SCH (08:33)
[2020-08-19] MEDS: PANTOPRAZOLE 40MG TAB (PROTONIX) PO SCH (08:33)
[2020-08-19] MEDS: APIXABAN 2.5 MG TAB (ELIQUIS) PO SCH ×2 (08:33→20:13)
[2020-08-19] MEDS: BISACODYL 10 MG SUPP PR SCH (09:00)
--- NOTE | 2020-08-19 11:06 | IPNPDOC ---
Subjective General Date/Time Seen The patient was seen on 08/19/20 at 11:00. Subject Chief Complaint/History The patient is a 75-year-old male admitted with a reason for visit of Esrd,Ileus Unspecified. SUBJECTIVE: Patient was seen and examined at the bedside this morning. He continues to remain hypotensive despite having received around 4L IV fluid and Midodrine yesterday. He is not making any urine. He denies any shortness of breath, no n/v/d. He states he is eating/drinking well. No other complaints today. OBJECTIVE: PHYSICAL EXAMINATION: VITAL SIGNS: see below GENERAL: alert and oriented, appears quite cachectic, in no apparent distress, pleasant and conversant in full sentences. HEENT: PERRL, EOMI, Oral mucous membranes are moist without lesions. NECK: The patient has slightly elevated JVD. No adenopathy is appreciated. No thyromegaly CHEST/LUNGS: Faint crackles at the bases. There is no subcutaneous air appreciated. There is no tenderness to the chest wall. Tunneled HD catheter in place. PleurX catheter in place. Diminished breath sounds at the left base. HEART: Regular rate and rhythm. No murmurs, rubs, or gallops are appreciated. Distal pulses are 2+. No carotid bruits appreciated. ABDOMEN: Soft, nontender, and nondistended. Bowel sounds are positive. No organomegaly is appreciated. No masses are appreciated. There are no peritoneal signs. There is no Abbott sign. EXTREMITIES: 1+ peripheral edema. Edema of the upper extremities around the elbows. There is no focal long bone tenderness or deformity. SKIN: The patients skin is warm and dry, without rashes or lesions. PSYCHIATRIC: AAO x 3, normal mood/affect NEUROLOGIC: No obvious focal deficits IMAGING: No new imaging ASSESSMENT: This is a 75-year-old male with history of metastatic pancreatic cancer status post Whipple procedure in 2000 with recurrent malignant pleural effusions, end- stage renal disease on dialysis who was recently in the acute rehabilitation unit transferred to the medical floor for weakness and hypotension. PLAN: 1. End-stage renal disease on hemodialysis: -Will attempt HD today despite persistent hypotension 2. Hypotension: -Blood pressure this morning 88/50. -Continue Midodrine -Currently receiving IV fluids D5/NS 60 cc/hr, continue for now 3. Possible pneumonia: -Patient is currently on IV Zosyn per primary team 4. Left recurrent malignant pleural effusion requiring drainage every 48 hours: -Continue drainage DISPO: Given patient's hypotension and poor prognostic factors considering his malignancy, we feel it is apporopriate for patient to consider hospice referral at this time. Will attempt HD today. Current Medications Current Medications Current Medications Medications (Trade) Dose Ordered Sig/Dejan Route PRN Reason Start Time Stop Time Status Last Admin Dose Admin Acetaminophen (Tylenol Tab) 650 mg Q4H PRN PO PAIN OR FEVER 08/13/20 15:45 08/17/20 00:15 Apixaban (Eliquis) 2.5 mg BID PO 08/13/20 21:00 08/19/20 08:33 Aspirin (Ecotrin) 81 mg DAILY PO 08/14/20 09:00 08/19/20 08:32 Bisacodyl (Dulcolax Suppository) 10 mg DAILY MS 08/16/20 09:00 Bisacodyl (Dulcolax Tab) 10 mg DAILY PO 08/15/20 09:00 08/19/20 08:32 Dextrose/Sodium Chloride 1,000 ml @ 60 mls/hr [id number] IV 08/17/20 08:00 08/19/20 10:27 DC 08/19/20 04:15 Fluconazole (Diflucan Tablet) 100 mg DAILY PO 08/16/20 09:00 08/17/20 07:55 DC 08/16/20 17:17 Fluconazole (Diflucan Tablet) 100 mg DAILY@1800 PO 08/18/20 18:00 Fluconazole 100 mg/IV Miscellaneous Supplies 50 ml @ 50 mls/hr Q24H IV 08/17/20 10:00 08/18/20 11:17 DC 08/18/20 09:37 Heparin Sodium (Heparin (Flush)) 500 units ASDIRECTED PRN IV SEE LABEL COMMENTS 08/14/20 04:00 08/16/20 14:48 Heparin Sodium (Heparin (Flush)) 500 units DAILY IV 08/14/20 09:00 08/19/20 08:33 Heparin Sodium (Heparin) Please refer to ... ASDIRECTED XX 08/14/20 09:25 08/15/20 09:24 DC Heparin Sodium (Heparin) dose as per volume indica... ASDIRECTED PRN IV SEE LABEL COMMENTS 08/14/20 09:25 08/15/20 09:24 DC Heparin Sodium (Porcine) (Heparin) 5,000 units Q12H SC 08/13/20 21:00 08/13/20 16:18 DC Home Med (Med Rec Complete!) ASDIRECTED XX 08/13/20 16:00 08/13/20 16:00 DC Metoclopramide HCl (REGLAN INJection) 5 mg Q8HP PRN IV NAUSEA OR VOMITING 08/15/20 12:30 08/17/20 07:55 DC Midodrine (Proamatine) 5 mg BID PO 08/13/20 21:00 08/13/20 16:19 DC Midodrine (Proamatine) 5 mg TID@0600,1200,1800 PO 08/13/20 18:00 08/16/20 21:09 DC 08/16/20 17:17 Midodrine (Proamatine) 10 mg TID@0600,1200,1800 PO 08/17/20 06:00 08/19/20 06:41 Ondansetron HCl (ZOFRAN INJection) 4 mg Q4HP PRN IV NAUSEA OR VOMITING 08/14/20 09:40 08/16/20 14:42 Oxycodone HCl (Roxicodone, Oxyir) 5 mg Q4H PRN PO PAIN 08/13/20 15:50 Pantoprazole Sodium (Protonix) 40 mg DAILY PO 08/14/20 09:00 08/19/20 08:33 Piperacillin Sod/ Tazobactam Sod 2.25 gm/Dextrose 50 ml @ 100 mls/hr Q8H IV 08/16/20 23:00 08/19/20 06:41 Prochlorperazine (Compazine) 10 mg Q6HP PRN IV VOMITING 08/17/20 07:50 Senna/Docusate Sodium (Senokot S) 1 tab BID PO 08/16/20 09:00 08/19/20 08:32 Sodium Biphosphate/ Sodium Phosphate (Fleet Enema) 1 ea DAILYPRN PRN MS CONSTIPATION 08/13/20 16:00 08/16/20 06:57 DC Sodium Chloride 1,000 ml @ 100 mls/hr Q10H IV 08/13/20 12:35 08/13/20 16:18 DC 08/13/20 14:25 Sodium Chloride (Nacl 0.9%) 200 ml ASDIRECTED PRN IV SEE LABEL COMMENTS 08/14/20 09:25 08/15/20 09:24 DC Sodium Chloride (Saline Lock Flush) 10 ml ASDIRECTED PRN IV SEE LABEL COMMENTS 08/14/20 04:00 Sodium Chloride (Saline Lock Flush) 10 ml DAILY IV 08/14/20 09:00 08/19/20 08:33 Allergies Coded Allergies: No Known Allergies (Unverified , 07/27/18) VS,Fishbone, I+O VS, Fishbone, I+O Vital Signs Date Time Temp Pulse Resp B/P (MAP) Pulse Ox O2 Delivery O2 Flow Rate FiO2 08/19/20 08:00 97.8 78 20 88/50 (63) 97 Room Air 08/18/20 08:00 I&O- Last 24 Hours up to 6 AM 08/19/20 06:00 Intake Total 1680 ml Output Total 0 ml Balance 1680 ml GME ATTESTATION GME ATTESTATION My faculty preceptor for this patient encounter was physically present during the encounter and was fully available. All aspects of the patient interview, examination, medical decision making process, and medical care plan development were reviewed and approved by the faculty preceptor. The faculty preceptor is aware and concurs with the plan as stated in the body of this note and will attest to such by his/her cosignature. LAURA GIRALDO MD Aug 19, 2020 11:06
[2020-08-19 12:00] VITALS: BP 85/55
--- NOTE | 2020-08-19 12:22 | IPNPDOC ---
Subjective Date Seen The patient was seen on 08/19/20. Subjective Chief Complaint/HPI Patient looks better today. Was able to tolerate breakfast. No nausea or vomiting. No bowel movements yet today. Patient does not make urine. Bp remains low with MAP mostly around 55-60. He is alert oriented and conversant. I dis cussed advance directives with him to clarify if he was Ok with his 's decision of DNR and DNI. He agrees with it. Objective Physical Examination General Exam: Positive: Alert, Cooperative, No Acute Distress Eye Exam: Positive: PERRLA ENT Exam: Positive: Atraumatic, Mucous membr. moist/pink Neck Exam: Positive: Supple; Negative: JVD Chest Exam: Positive: Diminished (on the left with crackles), Other (crackles at both the bases) Heart Exam: Positive: Rate Normal, Irregular Rhythm; Negative: Gallops, Murmurs, Rubs Telemetry: Positive: Atrial fibrillation, Other Telemetry: (bigemini) Abdomen Exam: Positive: BS Hyperactive (with some tinkling sounds), Soft; Negative: Tenderness Extremity Exam: Positive: Edema (2+); Negative: Clubbing, Cyanosis Neuro Exam: Positive: Cranial Nerves 3-12 NL Assessment /Plan Assessment Patient is a 75 years old male with past history of metastatic pancreatic cancer on supportive care, Whipple procedure in 2000, end-stage renal diseases on dialysis, recurrent small bowel obstruction, hypotension presented to the hospital with generalized weakness. Patient was discharged on 08/11/20 from acute rehabilitation but after reaching home he was too weak to get out of bed to stand or walk. He could not make to HD on 08/13/20 due to extreme weakness. He was also constipated for 4 days associated with nausea and vomiting. Patient was admitted for failure to thrive, small bowel ileus, debility with metastatic pancreatic CA. Acute on Chronic hypotension increased dose of Midodrine Unsure if he will be able to tolerate HD as BP bottomed out to 60s/30s with confusion after last HD session even without any fluid removal Metabolic encephalopathy due to hypotension after HD has resolved. Possible left atelectasis vs pneumonia procalcionin elevated on zosyn Small bowel ileus patient has h/o recurrent small bowel obstruction for years which started after wipples procedure. last episode of SBO with contained perforation was in June 2020. Now still continues to have recurrent ileus with some days of vomiting. will avoid constipation. continue bowel regimen. Pancreatic adenocarcinoma with mets to the bilateral lung and chronic left hydropneumothorax. Has bilateral cavitary nodules in the lung from 2014, biopsied in 2014, 2016 and 2017 all with pancreatic adenoca. Pleural effusion apperaed in Jan 2020. negative cytology in Apr 2020. He was initially diagnosed in 2000 & had Whipple and chemoradiation; in 2014 there was recurrence in the lungs. 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 After that went on chemo holiday. Ca-19-9 continued to rise but he did not want to restart chemo. In April 2020 developed left pleural effusion had thoracocentesis. Again declined resuming chemo in Apr; per recent note 05/30/20 the patient last completed active treatment in apr 2017 will send left pleural fluid cytology again. Chronic left hydropneumothorax. 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 will continue with pleurx cath draining every other day. ESRD due to chemotherapy MWF via permacath Nephro following UTI uc with yeast started on fluconazole. Atrial fibrillation on eliquis. Chronic anemia anemia of chronic disease Debility / Deconditioning/ failure to thrive unable to walk anymore. Was in ARU for 10 days from 08/01 to 08/12 however could not get out of the car when he reached home so was brought back to the hospital and readmitted on 08/13/20 will need to go into STR. BPH. does not make any urine. Plan/VTE VTE Prophylaxis Ordered?: Yes VS, I&O, 24H, Fishbone Vital Signs/I&O Vital Signs Date Time Temp Pulse Resp B/P (MAP) Pulse Ox O2 Delivery O2 Flow Rate FiO2 08/19/20 08:00 97.8 78 20 88/50 (63) 97 Room Air 08/18/20 08:00 I&O- Last 24 Hours up to 6 AM 08/19/20 06:00 Intake Total 1680 ml Output Total 0 ml Balance 1680 ml Laboratory Data 24H LABS Laboratory Tests 2 08/18/20 20:30: Bedside Glucose (Misc Panel) 94 Microbiology Microbiology 08/15/20 Urine Culture - Final, Complete Yeast Like Organism 08/13/20 Respiratory Virus Panel (PCR) (SABAS) - Final, Complete 08/13/20 Blood Culture - Final, Complete NO GROWTH AFTER 5 DAYS 08/13/20 Blood Culture - Final, Complete NO GROWTH AFTER 5 DAYS HUSSEIN FRANCO MD Aug 19, 2020 12:22
[2020-08-19 16:00] VITALS: BP 88/55
[2020-08-19] MEDS: FLUCONAZOLE 100 MG TAB PO SCH (17:40)
[2020-08-19 19:08] VITALS: BP 78/50
[2020-08-20] VITALS: BP 78/60
[2020-08-20 04:00] VITALS: BP 87/51
[2020-08-20] MEDS: MIDODRINE 5 MG TAB PO SCH ×3 (06:23→18:00)
[2020-08-20] MEDS: PIPERACILLIN/TAZOBACTAM SOD 2.25 GM in D5W MINI-BAG PLUS 50 ML IV SCH ×3 (06:24→22:51)
[2020-08-20] MEDS: ONDANSETRON 4MG/2ML VIAL IV PRN ×2 (06:35→16:35)
[2020-08-20 06:42] LABS: BASO % 0.3 % (0.0-1.0); EOS # 0.2 10^3/uL (0.0-0.5); EOS % 2.4 % (0.0-3.0); HEMATOCRIT 36.7 % (42.0-52.0); HEMOGLOBIN 11.1 g/dl (13.5-17.5); LYMPH # 0.7 10^3/uL (1.5-5.0); LYMPH % 7.6 % (24.0-44.0); MEAN CORPUSCULAR HEMOGLOBIN 28.6 pg (27.0-33.0); MEAN CORPUSCULAR HGB CONC 30.2 g/dl (32.0-36.5); MEAN CORPUSCULAR VOLUME 94.6 fl (80.0-96.0); MONO # 0.7 10^3/uL (0.0-0.8); MONO % 7.9 % (2.0-8.0); NEUTROPHILS # 7.5 10^3/uL (1.5-8.5); NEUTROPHILS % 80.8 % (36.0-66.0); PLATELET COUNT, AUTOMATED 191 10^3/uL (150-450); RED BLOOD COUNT 3.88 10^6/uL (4.30-6.10); WHITE BLOOD COUNT 9.3 10^3/uL (4.0-10.0)
[2020-08-20 07:34] LABS: CALCIUM LEVEL 7.8 MG/DL (8.8-10.2); CREATININE FOR GFR 6.53 MG/DL (0.70-1.30); GLOMERULAR FILTRATION RATE 8.8 (>42); POTASSIUM SERUM 4.4 MEQ/L (3.5-5.1)
[2020-08-20 07:37] VITALS: BP 85/55
[2020-08-20] MEDS: APIXABAN 2.5 MG TAB (ELIQUIS) PO SCH ×2 (08:49→21:00)
[2020-08-20] MEDS: ASPIRIN 81MG ENTERIC TABLET PO SCH (08:49)
[2020-08-20] MEDS: SENOKOT S TAB PO SCH ×2 (08:49→21:00)
[2020-08-20] MEDS: PANTOPRAZOLE 40MG TAB (PROTONIX) PO SCH (08:49)
[2020-08-20] MEDS: SODIUM CHLORIDE 0.9% INJ 10 ML SYR IV SCH (08:50)
[2020-08-20] MEDS: BISACODYL 5 MG TAB PO SCH (08:50)
[2020-08-20] MEDS: BISACODYL 10 MG SUPP PR SCH (09:00)
--- NOTE | 2020-08-20 09:25 | IPNPDOC ---
Subjective General Date/Time Seen The patient was seen on 08/20/20 at 09:22. Subject Chief Complaint/History The patient is a 75-year-old male admitted with a reason for visit of Esrd,Ileus Unspecified. SUBJECTIVE: Patient was seen and examined at the bedside this morning. Blood pressures remain soft. He denies any lightheadedness/dizziness, no SOB, no n/v/d. He is agreeable to attempt dialysis again today. OBJECTIVE: PHYSICAL EXAMINATION: VITAL SIGNS: see below GENERAL: alert and oriented, appears quite cachectic, in no apparent distress, pleasant and conversant in full sentences. HEENT: PERRL, EOMI, Oral mucous membranes are moist without lesions. NECK: The patient has slightly elevated JVD. No adenopathy is appreciated. No thyromegaly CHEST/LUNGS: Faint crackles at the bases. There is no subcutaneous air appreciated. There is no tenderness to the chest wall. Tunneled HD catheter in place. PleurX catheter in place. Diminished breath sounds at the left base. HEART: Regular rate and rhythm. No murmurs, rubs, or gallops are appreciated. Distal pulses are 2+. No carotid bruits appreciated. ABDOMEN: Soft, nontender, and nondistended. Bowel sounds are positive. No organomegaly is appreciated. No masses are appreciated. There are no peritoneal signs. There is no Morris sign. EXTREMITIES: 1+ peripheral edema. Edema of the upper extremities around the elbows. There is no focal long bone tenderness or deformity. SKIN: The patients skin is warm and dry, without rashes or lesions. PSYCHIATRIC: AAO x 3, normal mood/affect NEUROLOGIC: No obvious focal deficits IMAGING: No new imaging ASSESSMENT: This is a 75-year-old male with history of metastatic pancreatic cancer status post Whipple procedure in 2000 with recurrent malignant pleural effusions, end- stage renal disease on dialysis who was recently in the acute rehabilitation unit transferred to the medical floor for weakness and hypotension. PLAN: 1. End-stage renal disease on hemodialysis: -Will attempt HD today despite persistent hypotension 2. Hypotension: -Blood pressure this morning 85/55 -Continue Midodrine -s/p IV fluids 3. Possible pneumonia: -Patient is currently on IV Zosyn per primary team 4. Left recurrent malignant pleural effusion requiring drainage every 48 hours: -Continue drainage DISPO: Will attempt HD again today, if blood pressure supports Current Medications Current Medications Current Medications Medications (Trade) Dose Ordered Sig/Dejan Route PRN Reason Start Time Stop Time Status Last Admin Dose Admin Acetaminophen (Tylenol Tab) 650 mg Q4H PRN PO PAIN OR FEVER 08/13/20 15:45 08/17/20 00:15 Apixaban (Eliquis) 2.5 mg BID PO 08/13/20 21:00 08/20/20 08:49 Aspirin (Ecotrin) 81 mg DAILY PO 08/14/20 09:00 08/20/20 08:49 Bisacodyl (Dulcolax Suppository) 10 mg DAILY ND 08/16/20 09:00 Bisacodyl (Dulcolax Tab) 10 mg DAILY PO 08/15/20 09:00 08/19/20 08:32 Dextrose/Sodium Chloride 1,000 ml @ 60 mls/hr [id number] IV 08/17/20 08:00 08/19/20 10:27 DC 08/19/20 04:15 Fluconazole (Diflucan Tablet) 100 mg DAILY PO 08/16/20 09:00 08/17/20 07:55 DC 08/16/20 17:17 Fluconazole (Diflucan Tablet) 100 mg DAILY@1800 PO 08/18/20 18:00 08/19/20 17:40 Fluconazole 100 mg/IV Miscellaneous Supplies 50 ml @ 50 mls/hr Q24H IV 08/17/20 10:00 08/18/20 11:17 DC 08/18/20 09:37 Heparin Sodium (Heparin (Flush)) 500 units ASDIRECTED PRN IV SEE LABEL COMMENTS 08/14/20 04:00 08/16/20 14:48 Heparin Sodium (Heparin (Flush)) 500 units DAILY IV 08/14/20 09:00 08/20/20 08:50 Heparin Sodium (Heparin) Please refer to ... ASDIRECTED XX 08/14/20 09:25 08/15/20 09:24 DC Heparin Sodium (Heparin) dose as per volume indica... ASDIRECTED PRN IV SEE LABEL COMMENTS 08/14/20 09:25 08/15/20 09:24 DC Heparin Sodium (Porcine) (Heparin) 5,000 units Q12H SC 08/13/20 21:00 08/13/20 16:18 DC Home Med (Med Rec Complete!) ASDIRECTED XX 08/13/20 16:00 08/13/20 16:00 DC Metoclopramide HCl (REGLAN INJection) 5 mg Q8HP PRN IV NAUSEA OR VOMITING 08/15/20 12:30 08/17/20 07:55 DC Midodrine (Proamatine) 5 mg BID PO 08/13/20 21:00 08/13/20 16:19 DC Midodrine (Proamatine) 5 mg TID@0600,1200,1800 PO 08/13/20 18:00 08/16/20 21:09 DC 08/16/20 17:17 Midodrine (Proamatine) 10 mg TID@0600,1200,1800 PO 08/17/20 06:00 08/20/20 06:23 Ondansetron HCl (ZOFRAN INJection) 4 mg Q4HP PRN IV NAUSEA OR VOMITING 08/14/20 09:40 08/20/20 06:35 Oxycodone HCl (Roxicodone, Oxyir) 5 mg Q4H PRN PO PAIN 08/13/20 15:50 08/19/20 12:20 DC Pantoprazole Sodium (Protonix) 40 mg DAILY PO 08/14/20 09:00 08/20/20 08:49 Piperacillin Sod/ Tazobactam Sod 2.25 gm/Dextrose 50 ml @ 100 mls/hr Q8H IV 08/16/20 23:00 08/20/20 06:24 Prochlorperazine (Compazine) 10 mg Q6HP PRN IV VOMITING 08/17/20 07:50 Senna/Docusate Sodium (Senokot S) 1 tab BID PO 08/16/20 09:00 08/19/20 20:13 Sodium Biphosphate/ Sodium Phosphate (Fleet Enema) 1 ea DAILYPRN PRN ND CONSTIPATION 08/13/20 16:00 08/16/20 06:57 DC Sodium Chloride 1,000 ml @ 100 mls/hr Q10H IV 08/13/20 12:35 08/13/20 16:18 DC 08/13/20 14:25 Sodium Chloride (Nacl 0.9%) 200 ml ASDIRECTED PRN IV SEE LABEL COMMENTS 08/14/20 09:25 08/15/20 09:24 DC Sodium Chloride (Saline Lock Flush) 10 ml ASDIRECTED PRN IV SEE LABEL COMMENTS 08/14/20 04:00 Sodium Chloride (Saline Lock Flush) 10 ml DAILY IV 08/14/20 09:00 08/20/20 08:50 Allergies Coded Allergies: No Known Allergies (Unverified , 07/27/18) VS,Fishbone, I+O VS, Fishbone, I+O Laboratory Tests 08/20/20 06:22 Vital Signs Date Time Temp Pulse Resp B/P (MAP) Pulse Ox O2 Delivery O2 Flow Rate FiO2 08/20/20 07:37 96.9 73 18 85/55 (65) 97 Room Air 08/18/20 08:00 I&O- Last 24 Hours up to 6 AM 08/20/20 06:00 Intake Total 600 ml Output Total 400 ml Balance 200 ml GME ATTESTATION GME ATTESTATION My faculty preceptor for this patient encounter was physically present during the encounter and was fully available. All aspects of the patient interview, examination, medical decision making process, and medical care plan development were reviewed and approved by the faculty preceptor. The faculty preceptor is a marvin and concurs with the plan as stated in the body of this note and will attest to such by his/her cosignature. LAURA GIRALDO MD Aug 20, 2020 09:25
--- NOTE | 2020-08-20 10:09 | IPNPDOC ---
Subjective Date Seen The patient was seen on 08/20/20. Subjective Chief Complaint/HPI Feeling nauseous this morning after he took his midodrine and zofran. Had bowel movement yesterday. no abdominal pain. No fever or chills. Objective Physical Examination General Exam: Positive: Alert, Cooperative, No Acute Distress Eye Exam: Positive: PERRLA ENT Exam: Positive: Atraumatic, Mucous membr. moist/pink Neck Exam: Positive: Supple; Negative: JVD Chest Exam: Positive: Diminished (on the left with crackles), Other (crackles at both the bases) Heart Exam: Positive: Rate Normal, Regular Rhythm; Negative: Gallops, Murmurs, Rubs Telemetry: Positive: PVCs, Other Telemetry: (bigemini) Abdomen Exam: Positive: Normal bowel sounds, Soft; Negative: Tenderness Extremity Exam: Positive: Edema (2+); Negative: Clubbing, Cyanosis Neuro Exam: Positive: Cranial Nerves 3-12 NL Assessment /Plan Assessment Patient is a 75 years old male with past history of metastatic pancreatic cancer on supportive care, Whipple procedure in 2000, end-stage renal diseases on dialysis, recurrent small bowel obstruction, hypotension presented to the hospital with generalized weakness. Patient was discharged on 08/11/20 from acute rehabilitation but after reaching home he was too weak to get out of bed to stand or walk. He could not make to HD on 08/13/20 due to extreme weakness. He was also constipated for 4 days associated with nausea and vomiting. Patient was admitted for failure to thrive, small bowel ileus, debility with metastatic pancreatic CA. Left lower lobe atelectasis and pneumonia procalcionin elevated on zosyn Acute on Chronic hypotension increased dose of Midodrine Unsure if he will be able to tolerate HD as BP bottomed out to 60s/30s with co nfusion after last HD session even without any fluid removal Metabolic encephalopathy due to hypotension after HD has resolved. Small bowel ileus patient has h/o recurrent small bowel obstruction for years which started after wipples procedure. last episode of SBO with contained perforation was in June 2020. Now still continues to have recurrent ileus with some days of vomiting. will avoid constipation. continue bowel regimen. Pancreatic adenocarcinoma with mets to the bilateral lung and chronic left hydropneumothorax. Has bilateral cavitary nodules in the lung from 2014, biopsied in 2014, 2017 and 2018 all with pancreatic adenoca. Pleural effusion apperaed in Jan 2020. negative cytology in Apr 2020. He was initially diagnosed in 2000 & had Whipple and chemoradiation; in 2014 there was recurrence in the lungs. 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 After that went on chemo holiday. Ca-19-9 continued to rise but he did not want to restart chemo. In April 2020 developed left pleural effusion had thoracocentesis. Again declined resuming chemo in Apr; per recent note 05/30/20 the patient last completed active treatment in apr 2017 will send left pleural fluid cytology again. Chronic left hydropneumothorax. 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 will continue with pleurx cath draining every other day. ESRD due to chemotherapy MWF via permacath Nephro following UTI uc with yeast started on fluconazole. Atrial fibrillation on eliquis. Chronic anemia anemia of chronic disease Debility / Deconditioning/ failure to thrive unable to walk anymore. Was in ARU for 10 days from 08/01 to 08/12 however could not get out of the car when he reached home so was brought back to the hospital and readmitted on 08/13/20 will need to go into STR. BPH. does not make any urine. Plan/VTE VTE Prophylaxis Ordered?: Yes VS, I&O, 24H, Fishbone Vital Signs/I&O Vital Signs Date Time Temp Pulse Resp B/P (MAP) Pulse Ox O2 Delivery O2 Flow Rate FiO2 08/20/20 07:37 96.9 73 18 85/55 (65) 97 Room Air 08/18/20 08:00 I&O- Last 24 Hours up to 6 AM 08/20/20 06:00 Intake Total 600 ml Output Total 400 ml Balance 200 ml Laboratory Data 24H LABS Laboratory Tests 2 08/19/20 13:04: Bedside Glucose (Misc Panel) 99 08/19/20 17:44: Bedside Glucose (Misc Panel) 92 08/19/20 20:15: Bedside Glucose (Misc Panel) 86 08/20/20 06:22: Immature Granulocyte % (Auto) 1.0, Neutrophils (%) (Auto) 80.8H, Lymphocytes (%) (Auto) 7.6L, Monocytes (%) (Auto) 7.9, Eosinophils (%) (Auto) 2.4, Basophils (%) (Auto) 0.3, Neutrophils # (Auto) 7.5, Lymphocytes # (Auto) 0.7L, Monocytes # (Auto) 0.7, Eosinophils # (Auto) 0.2, Basophils # (Auto) 0.0, Nucleated Red Blood Cells % (auto) 0.0, Anion Gap 12, Glomerular Filtration Rate 8.8L, Calcium Level 7.8L CBC/BMP Laboratory Tests 08/20/20 06:22 Microbiology Microbiology 08/15/20 Urine Culture - Final, Complete Yeast Like Organism 08/13/20 Respiratory Virus Panel (PCR) (SABAS) - Final, Complete 08/13/20 Blood Culture - Final, Complete NO GROWTH AFTER 5 DAYS 08/13/20 Blood Culture - Final, Complete NO GROWTH AFTER 5 DAYS HUSSEIN FRANCO MD Aug 20, 2020 10:09
[2020-08-20 12:00] VITALS: BP 70/60
[2020-08-20] MEDS: SODIUM CHLORIDE 0.9% INJ 10 ML SYR IV PRN (15:12)
[2020-08-20 16:00] VITALS: BP 84/47
[2020-08-20] MEDS: FLUCONAZOLE 100 MG TAB PO SCH (17:51)
[2020-08-20 20:00] VITALS: BP 80/45
[2020-08-21] VITALS (10 sets, daily range): BP systolic 70–98; BP diastolic 34–77
[2020-08-21] MEDS: PIPERACILLIN/TAZOBACTAM SOD 2.25 GM in D5W MINI-BAG PLUS 50 ML IV SCH ×3 (06:10→23:43)
[2020-08-21] MEDS: MIDODRINE 5 MG TAB PO SCH ×3 (06:14→19:57)
[2020-08-21] MEDS: BISACODYL 5 MG TAB PO SCH ×2 (08:12→19:57)
[2020-08-21] MEDS: BISACODYL 10 MG SUPP PR SCH (08:13)
[2020-08-21] MEDS: SENOKOT S TAB PO SCH ×2 (08:13→09:00)
[2020-08-21] MEDS: APIXABAN 2.5 MG TAB (ELIQUIS) PO SCH ×2 (08:17→19:57)
[2020-08-21] MEDS: PANTOPRAZOLE 40MG TAB (PROTONIX) PO SCH (08:17)
[2020-08-21] MEDS: ASPIRIN 81MG ENTERIC TABLET PO SCH (08:17)
[2020-08-21] MEDS: SODIUM CHLORIDE 0.9% INJ 10 ML SYR IV SCH (08:17)
[2020-08-21 08:35] LABS: BASO % 0.4 % (0.0-1.0); EOS # 0.1 10^3/uL (0.0-0.5); EOS % 1.3 % (0.0-3.0); HEMATOCRIT 35.4 % (42.0-52.0); HEMOGLOBIN 10.8 g/dl (13.5-17.5); LYMPH # 0.6 10^3/uL (1.5-5.0); LYMPH % 6.1 % (24.0-44.0); MEAN CORPUSCULAR HEMOGLOBIN 28.1 pg (27.0-33.0); MEAN CORPUSCULAR HGB CONC 30.5 g/dl (32.0-36.5); MEAN CORPUSCULAR VOLUME 92.2 fl (80.0-96.0); MONO # 0.7 10^3/uL (0.0-0.8); MONO % 7.6 % (2.0-8.0); NEUTROPHILS # 7.7 10^3/uL (1.5-8.5); NEUTROPHILS % 83.3 % (36.0-66.0); PLATELET COUNT, AUTOMATED 169 10^3/uL (150-450); RED BLOOD COUNT 3.84 10^6/uL (4.30-6.10); WHITE BLOOD COUNT 9.3 10^3/uL (4.0-10.0)
[2020-08-21 08:53] LABS: CALCIUM LEVEL 7.4 MG/DL (8.8-10.2); CREATININE FOR GFR 5.79 MG/DL (0.70-1.30); GLOMERULAR FILTRATION RATE 10.2 (>42); POTASSIUM SERUM 3.9 MEQ/L (3.5-5.1)
--- NOTE | 2020-08-21 09:42 | IPNPDOC ---
Subjective General Date/Time Seen The patient was seen on 08/21/20 at 09:41. Subject Chief Complaint/History The patient is a 75-year-old male admitted with a reason for visit of Esrd,Ileus Unspecified. SUBJECTIVE: Patient was seen and examined at the bedside this morning. He underwent HD yesterday but had to stop after 2 hours as he was not feeling well. He thinks it was because he ate and drank just prior to HD yesterday. He will again attempt HD today. He has no complaints this morning. No issues reported overnight. OBJECTIVE: PHYSICAL EXAMINATION: VITAL SIGNS: see below GENERAL: alert and oriented, appears quite cachectic, in no apparent distress, pleasant and conversant in full sentences. HEENT: PERRL, EOMI, Oral mucous membranes are moist without lesions. NECK: The patient has slightly elevated JVD. No adenopathy is appreciated. No thyromegaly CHEST/LUNGS: Faint crackles at the bases. There is no subcutaneous air appreciated. There is no tenderness to the chest wall. Tunneled HD catheter in place. PleurX catheter in place. Diminished breath sounds at the left base. HEART: Regular rate and rhythm. No murmurs, rubs, or gallops are appreciated. Distal pulses are 2+. No carotid bruits appreciated. ABDOMEN: Soft, nontender, and nondistended. Bowel sounds are positive. No organomegaly is appreciated. No masses are appreciated. There are no peritoneal signs. There is no [place] sign. EXTREMITIES: 1+ peripheral edema. Edema of the upper extremities around the elbows. There is no focal long bone tenderness or deformity. SKIN: The patients skin is warm and dry, without rashes or lesions. PSYCHIATRIC: AAO x 3, normal mood/affect NEUROLOGIC: No obvious focal deficits IMAGING: No new imaging ASSESSMENT: This is a 75-year-old male with history of metastatic pancreatic cancer status post Whipple procedure in 2000 with recurrent malignant pleural effusions, end- stage renal disease on dialysis who was recently in the acute rehabilitation unit transferred to the medical floor for weakness and hypotension. PLAN: 1. End-stage renal disease on hemodialysis: -Will attempt HD today 2. Hypotension: -Blood pressure this morning 95/77 -Continue Midodrine -s/p IV fluids 3. Possible pneumonia: -Patient is currently on IV Zosyn per primary team 4. Left recurrent malignant pleural effusion requiring drainage every 48 hours: -Continue drainage DISPO: Will attempt HD again today Current Medications Current Medications Current Medications Medications (Trade) Dose Ordered Sig/Dejan Route PRN Reason Start Time Stop Time Status Last Admin Dose Admin Acetaminophen (Tylenol Tab) 650 mg Q4H PRN PO PAIN OR FEVER 08/13/20 15:45 08/17/20 00:15 Apixaban (Eliquis) 2.5 mg BID PO 08/13/20 21:00 08/21/20 08:17 Aspirin (Ecotrin) 81 mg DAILY PO 08/14/20 09:00 08/21/20 08:17 Bisacodyl (Dulcolax Suppository) 10 mg DAILY MO 08/16/20 09:00 Bisacodyl (Dulcolax Tab) 10 mg DAILY PO 08/15/20 09:00 08/21/20 09:03 DC 08/19/20 08:32 Bisacodyl (Dulcolax Tab) 10 mg QHS PO 08/21/20 21:00 Dextrose/Sodium Chloride 1,000 ml @ 60 mls/hr [id number] IV 08/17/20 08:00 08/19/20 10:27 DC 08/19/20 04:15 Fluconazole (Diflucan Tablet) 100 mg DAILY PO 08/16/20 09:00 08/17/20 07:55 DC 08/16/20 17:17 Fluconazole (Diflucan Tablet) 100 mg DAILY@1800 PO 08/18/20 18:00 08/20/20 17:51 Fluconazole 100 mg/IV Miscellaneous Supplies 50 ml @ 50 mls/hr Q24H IV 08/17/20 10:00 08/18/20 11:17 DC 08/18/20 09:37 Heparin Sodium (Heparin (Flush)) 500 units ASDIRECTED PRN IV SEE LABEL COMMENTS 08/14/20 04:00 08/20/20 15:12 Heparin Sodium (Heparin (Flush)) 500 units DAILY IV 08/14/20 09:00 08/21/20 08:17 Heparin Sodium (Heparin) Please refer to ... ASDIRECTED XX 08/14/20 09:25 08/15/20 09:24 DC Heparin Sodium (Heparin) dose as per volume indica... ASDIRECTED PRN IV SEE LABEL COMMENTS 08/14/20 09:25 08/15/20 09:24 DC Heparin Sodium (Porcine) (Heparin) 5,000 units Q12H SC 08/13/20 21:00 08/13/20 16:18 DC Home Med (Med Rec Complete!) ASDIRECTED XX 08/13/20 16:00 08/13/20 16:00 DC Metoclopramide HCl (REGLAN INJection) 5 mg Q8HP PRN IV NAUSEA OR VOMITING 08/15/20 12:30 08/17/20 07:55 DC Midodrine (Proamatine) 5 mg BID PO 08/13/20 21:00 08/13/20 16:19 DC Midodrine (Proamatine) 5 mg TID@0600,1200,1800 PO 08/13/20 18:00 08/16/20 21:09 DC 08/16/20 17:17 Midodrine (Proamatine) 10 mg TID@0600,1200,1800 PO 08/17/20 06:00 08/21/20 09:04 DC 08/21/20 06:14 Midodrine (Proamatine) 10 mg TID@0800,1400,2000 PO 08/21/20 14:00 Ondansetron HCl (ZOFRAN INJection) 4 mg Q4HP PRN IV NAUSEA OR VOMITING 08/14/20 09:40 08/20/20 16:35 Oxycodone HCl (Roxicodone, Oxyir) 5 mg Q4H PRN PO PAIN 08/13/20 15:50 08/19/20 12:20 DC Pantoprazole Sodium (Protonix) 40 mg DAILY PO 08/14/20 09:00 08/21/20 08:17 Piperacillin Sod/ Tazobactam Sod 2.25 gm/Dextrose 50 ml @ 100 mls/hr Q8H IV 08/16/20 23:00 08/21/20 06:10 Prochlorperazine (Compazine) 10 mg Q6HP PRN IV VOMITING 08/17/20 07:50 Senna/Docusate Sodium (Senokot S) 1 tab BID PO 08/16/20 09:00 08/21/20 09:03 DC 08/19/20 20:13 Senna/Docusate Sodium (Senokot S) 1 tab DAILY PO 08/21/20 09:00 Sodium Biphosphate/ Sodium Phosphate (Fleet Enema) 1 ea DAILYPRN PRN MO CONSTIPATION 08/13/20 16:00 08/16/20 06:57 DC Sodium Chloride 1,000 ml @ 100 mls/hr Q10H IV 08/13/20 12:35 08/13/20 16:18 DC 08/13/20 14:25 Sodium Chloride (Nacl 0.9%) 200 ml ASDIRECTED PRN IV SEE LABEL COMMENTS 08/14/20 09:25 08/15/20 09:24 DC Sodium Chloride (Saline Lock Flush) 10 ml ASDIRECTED PRN IV SEE LABEL COMMENTS 08/14/20 04:00 08/20/20 15:12 Sodium Chloride (Saline Lock Flush) 10 ml DAILY IV 08/14/20 09:00 08/21/20 08:17 Allergies Coded Allergies: No Known Allergies (Unverified , 07/27/18) VS,Fishbone, I+O VS, Fishbone, I+O Laboratory Tests 08/21/20 08:12 Vital Signs Date Time Temp Pulse Resp B/P (MAP) Pulse Ox O2 Delivery O2 Flow Rate FiO2 08/21/20 08:00 97.2 50 18 95/77 (83) 95 Room Air 08/18/20 08:00 I&O- Last 24 Hours up to 6 AM 08/21/20 06:00 Intake Total 400 ml Output Total 321 ml Balance 79 ml GME ATTESTATION GME ATTESTATION My faculty preceptor for this patient encounter was physically present during the encounter and was fully available. All aspects of the patient interview, examination, medical decision making process, and medical care plan development were reviewed and approved by the faculty preceptor. The faculty preceptor is aware and concurs with the plan as stated in the body of this note and will attest to such by his/her cosignature. LAURA GIRALDO MD Aug 21, 2020 09:42
--- NOTE | 2020-08-21 12:15 | IPNPDOC ---
Subjective Date Seen The patient was seen on 08/21/20. Subjective Chief Complaint/HPI Patient reports that he feels okay. No energy and very weak . Denies any nausea. Tolerated HD for 2 hours yesterday. Patient complains that if he takes meds in empty stomach he gets nauseous. Will change the timing of his midodrine from 6am to 8 am. Had a very lasrge bowel movement last night so this disturbed his sleep. Objective Physical Examination General Exam: Positive: Alert, Cooperative, No Acute Distress Eye Exam: Positive: PERRLA ENT Exam: Positive: Atraumatic, Mucous membr. moist/pink Neck Exam: Positive: Supple; Negative: JVD Chest Exam: Positive: Diminished (on the left with crackles); Negative: Rhonchi, Wheezing Heart Exam: Positive: Rate Normal, Regular Rhythm; Negative: Gallops, Murmurs, Rubs Telemetry: Positive: PVCs, Other Telemetry: (bigemini) Abdomen Exam: Positive: Normal bowel sounds, Soft; Negative: Tenderness Extremity Exam: Positive: Edema (2+); Negative: Clubbing, Cyanosis Neuro Exam: Positive: Cranial Nerves 3-12 NL Assessment /Plan Assessment Patient is a 75 years old male with past history of metastatic pancreatic cancer on supportive care, Whipple procedure in 2000, end-stage renal diseases on dialysis, recurrent small bowel obstruction, hypotension presented to the hospital with generalized weakness. Patient was discharged on 08/11/20 from acute rehabilitation but after reaching home he was too weak to get out of bed to stand or walk. He could not make to HD on 08/13/20 due to extreme weakness. He was also constipated for 4 days associated with nausea and vomiting. Patient was admitted for failure to thrive, small bowel ileus, debility with metastatic pancreatic CA. Left lower lobe atelectasis and pneumonia procalcitonin elevated on zosyn Acute on Chronic hypotension increased dose of Midodrine Unsure if he will be able to tolerate HD as BP bottomed out to 60s/30s with confusion after last HD session even without any fluid removal tolerated 2 hours of HD on 08/20/20 Metabolic encephalopathy due to hypotension after HD has resolved. Small bowel ileus patient has h/o recurrent small bowel obstruction for years which started after wipples procedure. last episode of SBO with contained perforation was in June 2020. Now still continues to have recurrent ileus with some days of vomiting. will avoid constipation. continue bowel regimen. Pancreatic adenocarcinoma with mets to the bilateral lung and chronic left hydropneumothorax. Has bilateral cavitary nodules in the lung from 2014, biopsied in 2014, 2016 and 2017 all with pancreatic adenoca. Pleural effusion appeared in Jan 2020. negative cytology in Apr 2020. He was initially diagnosed in 2000 & had Whipple and chemoradiation; in 2014 there was recurrence in the lungs. 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 After that went on chemo holiday. Ca-19-9 continued to rise but he did not want to restart chemo. In April 2020 developed left pleural effusion had thoracocentesis. Again declined resuming chemo in Apr; per recent note 05/30/20 the patient last completed active treatment in apr 2017 left pleural fluid cytology from this admission is negative. Chronic left hydropneumothorax. 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 will continue with pleurx cath draining every other day. ESRD due to chemotherapy MWF via permacath Nephro following UTI uc with yeast on fluconazole x 7 days will check qtc. Paroxysmal Atrial fibrillation Now in sinus with PVCs and bigeminis. on eliquis. Chronic anemia anemia of chronic disease Debility / Deconditioning/ failure to thrive unable to walk anymore. Was in ARU for 10 days from 08/01 to 08/12 however could not get out of the car when he reached home so was brought back to the hospital and readmitted on 08/13/20 will need to go into STR. BPH. does not make any urine. Dispo: STR. CODE: Patient is DNR/DNI. He does not want to be on a ventilator and does not want chest compressions and resuscitation. However Patient does not want to go into hospice. Plan/VTE VTE Prophylaxis Ordered?: Yes VS, I&O, 24H, Fishbone Vital Signs/I&O Vital Signs Date Time Temp Pulse Resp B/P (MAP) Pulse Ox O2 Delivery O2 Flow Rate FiO2 08/21/20 08:00 97.2 50 18 95/77 (83) 95 Room Air 08/18/20 08:00 I&O- Last 24 Hours up to 6 AM 08/21/20 06:00 Intake Total 400 ml Output Total 321 ml Balance 79 ml Laboratory Data 24H LABS Laboratory Tests 2 08/20/20 12:09: Bedside Glucose (Misc Panel) 72L 08/20/20 22:45: Bedside Glucose (Misc Panel) 93 08/21/20 08:12: Immature Granulocyte % (Auto) 1.3, Neutrophils (%) (Auto) 83.3H, Lymphocytes (%) (Auto) 6.1L, Monocytes (%) (Auto) 7.6, Eosinophils (%) (Auto) 1.3, Basophils (%) (Auto) 0.4, Neutrophils # (Auto) 7.7, Lymphocytes # (Auto) 0.6L, Monocytes # (Auto) 0.7, Eosinophils # (Auto) 0.1, Basophils # (Auto) 0.0, Nucleated Red Blood Cells % (auto) 0.0, Anion Gap 12, Glomerular Filtration Rate 10.2L, Calc ium Level 7.4L 08/21/20 11:45: Bedside Glucose (Misc Panel) 98 CBC/BMP Laboratory Tests 08/21/20 08:12 Microbiology Microbiology 08/15/20 Urine Culture - Final, Complete Yeast Like Organism 08/13/20 Respiratory Virus Panel (PCR) (SABAS) - Final, Complete 08/13/20 Blood Culture - Final, Complete NO GROWTH AFTER 5 DAYS 08/13/20 Blood Culture - Final, Complete NO GROWTH AFTER 5 DAYS HUSSEIN FRANCO MD Aug 21, 2020 12:10
[2020-08-21] MEDS: FLUCONAZOLE 100 MG TAB PO SCH (17:33)
[2020-08-21] MEDS: ONDANSETRON 4MG/2ML VIAL IV PRN (17:44)
[2020-08-21] MEDS: SODIUM CHLORIDE 0.9% INJ 10 ML SYR IV PRN (18:23)
--- NOTE | 2020-08-21 20:34 | ECGEPIP ---
[facility] Test Date: 2020-08-21 Pat Name: LORENZA MENDEZ Department: Room: [place] [address] Gender: Male [employer] Project Manager: NATALYA : 1945 Requested By: HUSSEIN FRANCO Order Number: [id number] Reading MD: Leslie Sy Measurements Intervals [place] Rate: 80 P: 24 DE: 176 QRS: 6 QRSD: 70 T: 38 QT: 368 QTc: 424 Interpretive Statements SINUS RHYTHM WITH FREQUENT PVC'S LOW VOLTAGE CANNOT R/O SEPTAL INFARCT SIMILAR TO 08/16/20 Electronically Signed on 08-21-2020 20:34:16 EDT by Leslie Sy
[2020-08-21] MEDS ORDERED: SODIUM CHLORIDE 0.9% 1000ML IV ONE (21:40)
[2020-08-22 04:35] VITALS: BP 88/50
[2020-08-22] MEDS: PIPERACILLIN/TAZOBACTAM SOD 2.25 GM in D5W MINI-BAG PLUS 50 ML IV SCH ×3 (06:12→23:58)
[2020-08-22 08:00] VITALS: BP 72/36
[2020-08-22] MEDS: PANTOPRAZOLE 40MG TAB (PROTONIX) PO SCH (08:50)
[2020-08-22] MEDS: ASPIRIN 81MG ENTERIC TABLET PO SCH (08:50)
[2020-08-22] MEDS: ACETAMINOPHEN TAB 650MG DOSE (2X325MG) PO PRN (08:50)
[2020-08-22] MEDS: MIDODRINE 5 MG TAB PO SCH ×3 (08:50→21:22)
[2020-08-22] MEDS: SODIUM CHLORIDE 0.9% INJ 10 ML SYR IV SCH (08:51)
[2020-08-22] MEDS: APIXABAN 2.5 MG TAB (ELIQUIS) PO SCH ×2 (08:51→21:22)
[2020-08-22] MEDS: BISACODYL 10 MG SUPP PR SCH (08:52)
[2020-08-22] MEDS: SENOKOT S TAB PO SCH (08:52)
--- NOTE | 2020-08-22 09:56 | IPNPDOC ---
Subjective General Date/Time Seen The patient was seen on 08/22/20 at 09:47. Subject Chief Complaint/History The patient is a 75-year-old male admitted with a reason for visit of Esrd,Ileus Unspecified. SUBJECTIVE: Patient was seen and examined at the bedside this morning. He underwent HD yesterday where 500cc fluid was removed, but overnight had hypotension and received a 250cc bolus. Today, his BP is 72/36 (MAP 48). He is laying flat in bed. In speaking with Dr. Reaves (hospitalist) the issue remains that the patient cannot be sent to a fpc due to his reliance on HD, and cannot get HD since he remains so hypotensive. He also refused to take his midodrine yesterday after HD due to his nausea from the hypotension caused by HD. When asked about his feelings regarding his overall health at this time he replies "if I survive, that's great, if I , then so be it." He reports having severe back pain this morning. Otherwise, no complaints. OBJECTIVE: PHYSICAL EXAMINATION: VITAL SIGNS: see below GENERAL: alert and oriented, appears quite cachectic, in no apparent distress, pleasant and conversant in full sentences. HEENT: PERRL, EOMI, Oral mucous membranes are moist without lesions. NECK: The patient has slightly elevated JVD. No adenopathy is appreciated. No thyromegaly CHEST/LUNGS: Faint crackles at the bases. There is no subcutaneous air appreciated. There is no tenderness to the chest wall. Tunneled HD catheter in place. PleurX catheter in place. Diminished breath sounds at the left base. HEART: Regular rate and rhythm. No murmurs, rubs, or gallops are appreciated. Distal pulses are 2+. No carotid bruits appreciated. ABDOMEN: Soft, nontender, and nondistended. Bowel sounds are positive. No organomegaly is appreciated. No masses are appreciated. There are no peritoneal signs. There is no [place] sign. EXTREMITIES: 2+ peripheral edema. Edema of the upper extremities around the elbows. There is no focal long bone tenderness or deformity. SKIN: The patients skin is warm and dry, without rashes or lesions. PSYCHIATRIC: AAO x 3, normal mood/affect NEUROLOGIC: No obvious focal deficits IMAGING: No new imaging ASSESSMENT: This is a 75-year-old male with history of metastatic pancreatic cancer status post Whipple procedure in 2000 with recurrent malignant pleural effusions, end- stage renal disease on dialysis who was recently in the acute rehabilitation unit transferred to the medical floor for weakness and hypotension. PLAN: 1. End-stage renal disease on hemodialysis: -He underwent HD yesterday with resulting hypotension requiring IV fluids overnight. Will not attempt HD again today as BP cannot support it. 2. Hypotension: -Blood pressure this morning 72/36 -Continue Midodrine TID -s/p 250 cc bolus overnight 3. Possible pneumonia: -Continue IV Zosyn per primary team 4. Left recurrent malignant pleural effusion requiring drainage every 48 hours: -Continue drainage DISPO: The patient unfortunately has several poor prognostic factors at this time, including his ongoing cancer and hypotension. This is not conducive for him to undergo HD regularly. He is not making any urine and is quite fluid- overloaded. Would recommend goals of care discussion with the patient and family and perhaps social work. At this time we believe he would be appropriate for hospice. Current Medications Current Medications Current Medications Medications (Trade) Dose Ordered Sig/Dejan Route PRN Reason Start Time Stop Time Status Last Admin Dose Admin Acetaminophen (Tylenol Tab) 650 mg Q4H PRN PO PAIN OR FEVER 08/13/20 15:45 08/22/20 08:50 Apixaban (Eliquis) 2.5 mg BID PO 08/13/20 21:00 08/22/20 08:51 Aspirin (Ecotrin) 81 mg DAILY PO 08/14/20 09:00 08/22/20 08:50 Bisacodyl (Dulcolax Suppository) 10 mg DAILY DE 08/16/20 09:00 Bisacodyl (Dulcolax Tab) 10 mg DAILY PO 08/15/20 09:00 08/21/20 09:03 DC 08/19/20 08:32 Bisacodyl (Dulcolax Tab) 10 mg QHS PO 08/21/20 21:00 Dextrose/Sodium Chloride 1,000 ml @ 60 mls/hr [id number] IV 08/17/20 08:00 08/19/20 10:27 DC 08/19/20 04:15 Fluconazole (Diflucan Tablet) 100 mg DAILY PO 08/16/20 09:00 08/17/20 07:55 DC 08/16/20 17:17 Fluconazole (Diflucan Tablet) 100 mg DAILY@1800 PO 08/18/20 18:00 08/23/20 21:00 08/21/20 17:33 Fluconazole 100 mg/IV Miscellaneous Supplies 50 ml @ 50 mls/hr Q24H IV 08/17/20 10:00 08/18/20 11:17 DC 08/18/20 09:37 Heparin Sodium (Heparin (Flush)) 500 units ASDIRECTED PRN IV SEE LABEL COMMENTS 08/14/20 04:00 08/21/20 18:22 Heparin Sodium (Heparin (Flush)) 500 units DAILY IV 08/14/20 09:00 08/22/20 08:51 Heparin Sodium (Heparin) Please refer to ... ASDIRECTED XX 08/14/20 09:25 08/15/20 09:24 DC Heparin Sodium (Heparin) dose as per volume indica... ASDIRECTED PRN IV SEE LABEL COMMENTS 08/14/20 09:25 08/15/20 09:24 DC Heparin Sodium (Porcine) (Heparin) 5,000 units Q12H SC 08/13/20 21:00 08/13/20 16:18 DC Home Med (Med Rec Complete!) ASDIRECTED XX 08/13/20 16:00 08/13/20 16:00 DC Metoclopramide HCl (REGLAN INJection) 5 mg Q8HP PRN IV NAUSEA OR VOMITING 08/15/20 12:30 08/17/20 07:55 DC Midodrine (Proamatine) 5 mg BID PO 08/13/20 21:00 08/13/20 16:19 DC Midodrine (Proamatine) 5 mg TID@0600,1200,1800 PO 08/13/20 18:00 08/16/20 21:09 DC 08/16/20 17:17 Midodrine (Proamatine) 10 mg TID@0600,1200,1800 PO 08/17/20 06:00 08/21/20 09:04 DC 08/21/20 06:14 Midodrine (Proamatine) 10 mg TID@0800,1400,2000 PO 08/21/20 14:00 08/22/20 08:50 Ondansetron HCl (ZOFRAN INJection) 4 mg Q4HP PRN IV NAUSEA OR VOMITING 08/14/20 09:40 08/21/20 17:44 Oxycodone HCl (Roxicodone, Oxyir) 5 mg Q4H PRN PO PAIN 08/13/20 15:50 08/19/20 12:20 DC Pantoprazole Sodium (Protonix) 40 mg DAILY PO 08/14/20 09:00 08/22/20 08:50 Piperacillin Sod/ Tazobactam Sod 2.25 gm/Dextrose 50 ml @ 100 mls/hr Q8H IV 08/16/20 23:00 08/22/20 06:12 Prochlorperazine (Compazine) 10 mg Q6HP PRN IV VOMITING 08/17/20 07:50 Senna/Docusate Sodium (Senokot S) 1 tab BID PO 08/16/20 09:00 08/21/20 09:03 DC 08/19/20 20:13 Senna/Docusate Sodium (Senokot S) 1 tab DAILY PO 08/21/20 09:00 Sodium Biphosphate/ Sodium Phosphate (Fleet Enema) 1 ea DAILYPRN PRN DE CONSTIPATION 08/13/20 16:00 08/16/20 06:57 DC Sodium Chloride 1,000 ml @ 100 mls/hr Q10H IV 08/13/20 12:35 08/13/20 16:18 DC 08/13/20 14:25 Sodium Chloride (Nacl 0.9%) 200 ml ASDIRECTED PRN IV SEE LABEL COMMENTS 08/14/20 09:25 08/15/20 09:24 DC Sodium Chloride (Saline Lock Flush) 10 ml ASDIRECTED PRN IV SEE LABEL COMMENTS 08/14/20 04:00 08/21/20 18:23 Sodium Chloride (Saline Lock Flush) 10 ml DAILY IV 08/14/20 09:00 08/22/20 08:51 Allergies Coded Allergies: No Known Allergies (Unverified , 07/27/18) VS,Fishbone, I+O VS, Fishbone, I+O Vital Signs Date Time Temp Pulse Resp B/P (MAP) Pulse Ox O2 Delivery O2 Flow Rate FiO2 08/22/20 08:00 97.5 81 20 72/36 (48) 96 Room Air 08/18/20 08:00 I&O- Last 24 Hours up to 6 AM 08/22/20 06:00 Intake Total 168 ml Output Total 850 ml Balance -682 ml GME ATTESTATION GME ATTESTATION My faculty preceptor for this patient encounter was physically present during the encounter and was fully available. All aspects of the patient interview, examination, medical decision making process, and medical care plan development were reviewed and approved by the faculty preceptor. The faculty preceptor is aware and concurs with the plan as stated in the body of this note and will attest to such by his/her cosignature. LAURA GIRALDO MD Aug 22, 2020 09:56
--- NOTE | 2020-08-22 11:26 | IPNPDOC ---
Subjective Date Seen The patient was seen on 08/22/20. Subjective Chief Complaint/HPI Patient remains about the same as yesterday, very hypotensive but alert and awake . Complained of back pain. No nausea or vomiting. this am. Has only 2 hours of HD yesterday then became hypotensive and had to be given back the 250 cc out of the 500 cc fluid that was removed. Was hypotensive overnight also and needed another 250 cc of fluid. Objective Physical Examination General Exam: Positive: Alert, Cooperative, No Acute Distress Eye Exam: Positive: PERRLA ENT Exam: Positive: Atraumatic, Mucous membr. moist/pink Neck Exam: Positive: Supple; Negative: JVD Chest Exam: Positive: Diminished (on the left with crackles); Negative: Rhonchi, Wheezing Heart Exam: Positive: Rate Normal, Regular Rhythm; Negative: Gallops, Murmurs, Rubs Telemetry: Positive: PVCs, Other Telemetry: (bigemini) Abdomen Exam: Positive: Normal bowel sounds, Soft; Negative: Tenderness Extremity Exam: Positive: Edema (2+); Negative: Clubbing, Cyanosis Neuro Exam: Positive: Cranial Nerves 3-12 NL Assessment /Plan Assessment Patient is a 75 years old male with past history of metastatic pancreatic cancer on supportive care, Whipple procedure in 2000, end-stage renal diseases on dialysis, recurrent small bowel obstruction, hypotension presented to the hospital with generalized weakness. Patient was discharged on 08/11/20 from acute rehabilitation but after reaching home he was too weak to get out of bed to stand or walk. He could not make to HD on 08/13/20 due to extreme weakness. He was also constipated for 4 days associated with nausea and vomiting. Patient was admitted for failure to thrive, small bowel ileus, debility with metastatic pancreatic CA. Left lower lobe atelectasis and pneumonia procalcitonin was elevated on zosyn will finish 7 days Acute on Chronic hypotension increased dose of Midodrine At present unable to tolerate HD, Bp drops and he becomes nauseous. One day he was also encephalopathic due to hypotension after the HD. Metabolic encephalopathy due to hypotension after HD has resolved. Small bowel ileus patient has h/o recurrent small bowel obstruction for years which started after wipples procedure. last episode of SBO with contained perforation was in June 2020. Now still continues to have recurrent ileus with some days of vomiting. will avoid constipation. continue bowel regimen. Pancreatic adenocarcinoma with mets to the bilateral lung and chronic left hydropneumothorax. Has bilateral cavitary nodules in the lung from 2014, biopsied in 2014, 2016 and 2017 all with pancreatic adenoca. Pleural effusion appeared in Jan 2020. negative cytology in Apr 2020. He was initially diagnosed in 2000 & had Whipple and chemoradiation; in 2014 there was recurrence in the lungs. 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 After that went on chemo holiday. Ca-19-9 continued to rise but he did not want to restart chemo. In April 2020 developed left pleural effusion had thoracocentesis. Again declined resuming chemo in Apr; per recent note 05/30/20 the patient last completed active treatment in apr 2017 left pleural fluid cytology from this admission is negative. Chronic left hydropneumothorax. 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 will continue with pleurx cath draining every other day. ESRD due to chemotherapy has not been able to tolerate full HD due to becoming hypotensive. UTI uc with yeast on fluconazole x 7 days qtc ok. Paroxysmal Atrial fibrillation Now in sinus with PVCs and bigeminis. on eliquis. Chronic anemia anemia of chronic disease Debility / Deconditioning/ failure to thrive unable to walk anymore. Was in ARU for 10 days from 08/01 to 08/12 however could not get out of the car when he reached home so was brought back to the hospital and readmitted on 08/13/20 BPH. does not make any urine. CODE: Patient is DNR/DNI. He does not want to be on a ventilator and does not want chest compressions and resuscitation. However Patient does not want to go into hospice. Dispo: Undecided Plan/VTE VTE Prophylaxis Ordered?: Yes VS, I&O, 24H, Fishbone Vital Signs/I&O Vital Signs Date Time Temp Pulse Resp B/P (MAP) Pulse Ox O2 Delivery O2 Flow Rate FiO2 08/22/20 08:00 97.5 81 20 72/36 (48) 96 Room Air 08/18/20 08:00 I&O- Last 24 Hours up to 6 AM 08/22/20 06:00 Intake Total 168 ml Output Total 850 ml Balance -682 ml Laboratory Data 24H LABS Laboratory Tests 2 08/21/20 11:45: Bedside Glucose (Misc Panel) 98 08/21/20 19:55: Bedside Glucose (Misc Panel) 79L Microbiology Microbiology 08/15/20 Urine Culture - Final, Complete Yeast Like Organism 08/13/20 Respiratory Virus Panel (PCR) (SABAS) - Final, Complete 08/13/20 Blood Culture - Final, Complete NO GROWTH AFTER 5 DAYS 08/13/20 Blood Culture - Final, Complete NO GROWTH AFTER 5 DAYS HUSSEIN FRANCO MD Aug 22, 2020 11:26
[2020-08-22 12:33] VITALS: BP 78/38
[2020-08-22] MEDS: ONDANSETRON 4MG/2ML VIAL IV PRN (15:57)
[2020-08-22 16:00] VITALS: BP 90/58
[2020-08-22] MEDS: FLUCONAZOLE 100 MG TAB PO SCH (18:00)
[2020-08-22 20:00] VITALS: BP 86/48
[2020-08-22] MEDS: BISACODYL 5 MG TAB PO SCH (21:00)
[2020-08-23] VITALS (7 sets, daily range): BP systolic 87–140; BP diastolic 50–74
[2020-08-23] MEDS: PIPERACILLIN/TAZOBACTAM SOD 2.25 GM in D5W MINI-BAG PLUS 50 ML IV SCH ×3 (06:10→23:53)
[2020-08-23 06:46] LABS: HEMATOCRIT 33.6 % (42.0-52.0); HEMOGLOBIN 10.4 g/dl (13.5-17.5); MEAN CORPUSCULAR HEMOGLOBIN 28.4 pg (27.0-33.0); MEAN CORPUSCULAR VOLUME 91.8 fl (80.0-96.0); PLATELET COUNT, AUTOMATED 185 10^3/uL (150-450); RED BLOOD COUNT 3.66 10^6/uL (4.30-6.10); WHITE BLOOD COUNT 9.6 10^3/uL (4.0-10.0)
[2020-08-23 07:20] LABS: CALCIUM LEVEL 7.4 MG/DL (8.8-10.2); CREATININE FOR GFR 5.32 MG/DL (0.70-1.30); GLOMERULAR FILTRATION RATE 11.2 (>42)
[2020-08-23] MEDS ORDERED: MIDODRINE 5 MG TAB PO SCH ×2 (08:00→14:00)
[2020-08-23] MEDS: ASPIRIN 81MG ENTERIC TABLET PO SCH (08:37)
[2020-08-23] MEDS: APIXABAN 2.5 MG TAB (ELIQUIS) PO SCH ×2 (08:37→21:31)
[2020-08-23] MEDS: MIDODRINE 5 MG TAB PO SCH (08:37)
[2020-08-23] MEDS: PANTOPRAZOLE 40MG TAB (PROTONIX) PO SCH (08:37)
[2020-08-23] MEDS: BISACODYL 10 MG SUPP PR SCH (08:38)
[2020-08-23] MEDS: SODIUM CHLORIDE 0.9% INJ 10 ML SYR IV SCH (08:38)
[2020-08-23] MEDS: SENOKOT S TAB PO SCH (08:38)
[2020-08-23] MEDS ORDERED: NS 500 ML IV ONE (11:10)
--- NOTE | 2020-08-23 12:34 | IPNPDOC ---
Subjective General Date/Time Seen The patient was seen on 08/23/20 at 12:31. Subject Chief Complaint/History The patient is a 75-year-old male admitted with a reason for visit of Esrd,Ileus Unspecified. SUBJECTIVE: Patient was seen and examined at the bedside this morning. He has started having diarrhea and appears very dry on examination. He has no complaints this morning. He will not undergo any HD today due to hypotension. OBJECTIVE: PHYSICAL EXAMINATION: VITAL SIGNS: see below GENERAL: alert and oriented, appears quite cachectic, in no apparent distress, pleasant and conversant in full sentences. HEENT: PERRL, EOMI, Oral mucous membranes are moist without lesions. NECK: The patient has slightly elevated JVD. No adenopathy is appreciated. No thyromegaly CHEST/LUNGS: Faint crackles at the bases. There is no subcutaneous air appreciated. There is no tenderness to the chest wall. Tunneled HD catheter in place. PleurX catheter in place. Diminished breath sounds at the left base. HEART: Regular rate and rhythm. No murmurs, rubs, or gallops are appreciated. Distal pulses are 2+. No carotid bruits appreciated. ABDOMEN: Soft, nontender, and nondistended. Bowel sounds are positive. No organomegaly is appreciated. No masses are appreciated. There are no peritoneal signs. There is no [place] sign. EXTREMITIES: 2+ peripheral edema. Edema of the upper extremities around the elbows. There is no focal long bone tenderness or deformity. SKIN: The patients skin is warm and dry, without rashes or lesions. PSYCHIATRIC: AAO x 3, normal mood/affect NEUROLOGIC: No obvious focal deficits IMAGING: No new imaging ASSESSMENT: This is a 75-year-old male with history of metastatic pancreatic cancer status post Whipple procedure in 2000 with recurrent malignant pleural effusions, end- stage renal disease on dialysis who was recently in the acute rehabilitation unit transferred to the medical floor for weakness and hypotension. PLAN: 1. End-stage renal disease on hemodialysis: -No HD today as hypotension cannot support it -Electrolytes WNL -Continues to make no urine 2. Hypotension: -Blood pressure this morning 88/63 -Increased midodrine to 15mg TID -Given one 500cc IV NS bolus today 3. Possible pneumonia: -Continue IV Zosyn per primary team 4. Left recurrent malignant pleural effusion requiring drainage every 48 hours: -Continue drainage DISPO: The patient unfortunately has several poor prognostic factors at this time, including his ongoing cancer and hypotension. This is not conducive for him to undergo HD regularly. He is not making any urine and is quite fluid- overloaded. Would recommend goals of care discussion with the patient and family and perhaps social work. At this time we believe he would be appropriate for hospice. Current Medications Current Medications Current Medications Medications (Trade) Dose Ordered Sig/Dejan Route PRN Reason Start Time Stop Time Status Last Admin Dose Admin Acetaminophen (Tylenol Tab) 650 mg Q4H PRN PO PAIN OR FEVER 08/13/20 15:45 08/22/20 08:50 Apixaban (Eliquis) 2.5 mg BID PO 08/13/20 21:00 08/23/20 08:37 Aspirin (Ecotrin) 81 mg DAILY PO 08/14/20 09:00 08/23/20 08:37 Bisacodyl (Dulcolax Suppository) 10 mg DAILY WI 08/16/20 09:00 08/23/20 11:09 DC Bisacodyl (Dulcolax Tab) 10 mg DAILY PO 08/15/20 09:00 08/21/20 09:03 DC 08/19/20 08:32 Bisacodyl (Dulcolax Tab) 10 mg QHS PO 08/21/20 21:00 08/23/20 11:09 DC Dextrose/Sodium Chloride 1,000 ml @ 60 mls/hr [id number] IV 08/17/20 08:00 08/19/20 10:27 DC 08/19/20 04:15 Fluconazole (Diflucan Tablet) 100 mg DAILY PO 08/16/20 09:00 08/17/20 07:55 DC 08/16/20 17:17 Fluconazole (Diflucan Tablet) 100 mg DAILY@1800 PO 08/18/20 18:00 08/23/20 21:00 08/21/20 17:33 Fluconazole 100 mg/IV Miscellaneous Supplies 50 ml @ 50 mls/hr Q24H IV 08/17/20 10:00 08/18/20 11:17 DC 08/18/20 09:37 Heparin Sodium (Heparin (Flush)) 500 units ASDIRECTED PRN IV SEE LABEL COMMENTS 08/14/20 04:00 08/21/20 18:22 Heparin Sodium (Heparin (Flush)) 500 units DAILY IV 08/14/20 09:00 08/23/20 08:37 Heparin Sodium (Heparin) Please refer to ... ASDIRECTED XX 08/14/20 09:25 08/15/20 09:24 DC Heparin Sodium (Heparin) dose as per volume indica... ASDIRECTED PRN IV SEE LABEL COMMENTS 08/14/20 09:25 08/15/20 09:24 DC Heparin Sodium (Porcine) (Heparin) 5,000 units Q12H SC 08/13/20 21:00 08/13/20 16:18 DC Home Med (Med Rec Complete!) ASDIRECTED XX 08/13/20 16:00 08/13/20 16:00 DC Metoclopramide HCl (REGLAN INJection) 5 mg Q8HP PRN IV NAUSEA OR VOMITING 08/15/20 12:30 08/17/20 07:55 DC Midodrine (Proamatine) 5 mg BID PO 08/13/20 21:00 08/13/20 16:19 DC Midodrine (Proamatine) 5 mg TID@0600,1200,1800 PO 08/13/20 18:00 08/16/20 21:09 DC 08/16/20 17:17 Midodrine (Proamatine) 10 mg TID@0600,1200,1800 PO 08/17/20 06:00 08/21/20 09:04 DC 08/21/20 06:14 Midodrine (Proamatine) 10 mg TID@0800,1400,2000 PO 08/21/20 14:00 08/23/20 10:23 DC 08/23/20 08:37 Midodrine (Proamatine) 15 mg TID@0800,1400,2000 PO 08/23/20 08:00 08/23/20 10:40 DC Midodrine (Proamatine) 15 mg TID@0800,1400,2000 PO 08/23/20 14:00 Ondansetron HCl (ZOFRAN INJection) 4 mg Q4HP PRN IV NAUSEA OR VOMITING 08/14/20 09:40 08/22/20 15:57 Oxycodone HCl (Roxicodone, Oxyir) 5 mg Q4H PRN PO PAIN 08/13/20 15:50 08/19/20 12:20 DC Pantoprazole Sodium (Protonix) 40 mg DAILY PO 08/14/20 09:00 08/23/20 08:37 Piperacillin Sod/ Tazobactam Sod 2.25 gm/Dextrose 50 ml @ 100 mls/hr Q8H IV 08/16/20 23:00 08/23/20 23:55 08/23/20 06:10 Prochlorperazine (Compazine) 10 mg Q6HP PRN IV VOMITING 08/17/20 07:50 Senna/Docusate Sodium (Senokot S) 1 tab BID PO 08/16/20 09:00 08/21/20 09:03 DC 08/19/20 20:13 Senna/Docusate Sodium (Senokot S) 1 tab DAILY PO 08/21/20 09:00 08/23/20 11:09 DC Sodium Biphosphate/ Sodium Phosphate (Fleet Enema) 1 ea DAILYPRN PRN WI CONSTIPATION 08/13/20 16:00 08/16/20 06:57 DC Sodium Chloride 1,000 ml @ 100 mls/hr Q10H IV 08/13/20 12:35 08/13/20 16:18 DC 08/13/20 14:25 Sodium Chloride (Nacl 0.9%) 200 ml ASDIRECTED PRN IV SEE LABEL COMMENTS 08/14/20 09:25 08/15/20 09:24 DC Sodium Chloride (Saline Lock Flush) 10 ml ASDIRECTED PRN IV SEE LABEL COMMENTS 08/14/20 04:00 08/21/20 18:23 Sodium Chloride (Saline Lock Flush) 10 ml DAILY IV 08/14/20 09:00 08/23/20 08:38 Allergies Coded Allergies: No Known Allergies (Unverified , 07/27/18) VS,Fishbone, I+O VS, Fishbone, I+O Laboratory Tests 08/23/20 06:16 Vital Signs Date Time Temp Pulse Resp B/P (MAP) Pulse Ox O2 Delivery O2 Flow Rate FiO2 08/23/20 08:00 97.6 78 18 88/63 (71) 95 Room Air 08/18/20 08:00 I&O- Last 24 Hours up to 6 AM 08/23/20 06:00 Intake Total 470 ml Output Total 0 ml Balance 470 ml GME ATTESTATION GME ATTESTATION My faculty preceptor for this patient encounter was physically present during the encounter and was fully available. All aspects of the patient interview, examination, medical decision making process, and medical care plan development were reviewed and approved by the faculty preceptor. The faculty preceptor is aware and concurs with the plan as stated in the body of this note and will attest to such by his/her cosignature. Attending Note Attending Note ESRD on HD Hypotension despite oral midodrine Chronic persistent diarrhea Ca pancreas with mets to lungs Recurrent Lt pl effusion, Pleurax catheter. Anemia in ESRD Hold HD today due to soft BP. Give NS bolus 500 m;. Increase Midodrine dose. Clinically deteriorating. Family discussion on Tuesday about goals of care. It has been getting difficult to dialyze him due to hypotension. Nephrology recommends Palliative Care/ Hospice. LAURA GIRALDO MD Aug 23, 2020 12:33 LONG HIGGINS MD Aug 24, 2020 12:58
--- NOTE | 2020-08-23 12:35 | IPNPDOC ---
Subjective Date Seen The patient was seen on 08/23/20. Subjective Chief Complaint/HPI Continues to be hypotensive though a little better this am. Has not been able to have a full HD session this week due to becoming hypotensive. Getting fluid overloaded but no respiratory distress, and electrolytes are ok. Denies any nausea or vomiting. Had a large bowel movement yesterday Discussed with Patient about discharge possibilities to home or NH and explained when he will go for HD after discharge his BP will drop during he session and he will be sent right back to the ED from the HD unit. So it is likely that he is going to be in hospital unless he decides that he does not wish to continue HD and would like to go into hospice then i would be able set him up for home hospice. [facility] has arranged a family meeting for Tuesday. Objective Physical Examination General Exam: Positive: Alert, Cooperative, No Acute Distress Eye Exam: Positive: PERRLA ENT Exam: Positive: Atraumatic, Mucous membr. moist/pink Neck Exam: Positive: Supple; Negative: JVD Chest Exam: Positive: Rales (crackles at the base of the right lung), Diminished (. Diminished breath sounds at the base of the left lung); Negative: Rhonchi, Wheezing Heart Exam: Positive: Rate Normal, Regular Rhythm; Negative: Gallops, Murmurs, Rubs Telemetry: Positive: PVCs, Other Telemetry: (bigemini) Abdomen Exam: Positive: Normal bowel sounds, Soft; Negative: Tenderness Extremity Exam: Positive: Edema (2+); Negative: Clubbing, Cyanosis Neuro Exam: Positive: Cranial Nerves 3-12 NL Assessment /Plan Assessment Patient is a 75 years old male with past history of metastatic pancreatic cancer on supportive care, Whipple procedure in 2000, end-stage renal diseases on dialysis, recurrent small bowel obstruction, hypotension presented to the hospital with generalized weakness. Patient was discharged on 08/11/20 from acute rehabilitation but after reaching home he was too weak to get out of bed to stand or walk. He could not make to HD on 08/13/20 due to extreme weakness. He was also constipated for 4 days associated with nausea and vomiting. Patient was admitted for failure to thrive, small bowel ileus, debility with metastatic pancreatic CA. Left lower lobe atelectasis and pneumonia zosyn x7 days Pro calcitonin still remains very high 7.07 Acute on Chronic hypotension increased dose of Midodrine BP drops severely after HD and becomes nauseous and confused. Am cortisol level Small bowel ileus patient has h/o recurrent small bowel obstruction for years which started after wipples procedure. last episode of SBO with contained perforation was in June 2020. Now still continues to have recurrent ileus with some days of vomiting. will avoid constipation. continue bowel regimen. Pancreatic adenocarcinoma with mets to the bilateral lung and chronic left hydropneumothorax. Has bilateral cavitary nodules in the lung from 2014, biopsied in 2014, 2016 and 2017 all with pancreatic adenoca. Pleural effusion appeared in Jan 2020. negative cytology in Apr 2020. He was initially diagnosed in 2000 & had Whipple and chemoradiation; in 2014 there was recurrence in the lungs. 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 After that went on chemo holiday. Ca-19-9 continued to rise but he did not want to restart chemo. In April 2020 developed left pleural effusion had thoracocentesis. Again declined resuming chemo in Apr; per recent note 05/30/20 the patient last completed active treatment in apr 2017 left pleural fluid cytology from this admission is negative. Chronic left hydropneumothorax. 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 will continue with pleurx cath draining every other day. ESRD due to chemotherapy has not been able to tolerate full HD due to becoming hypotensive. UTI uc with yeast fluconazole x 7 days qtc ok. Paroxysmal Atrial fibrillation Now in sinus with PVCs and bigeminis. on eliquis. Chronic anemia anemia of chronic disease Debility / Deconditioning/ failure to thrive unable to walk anymore. Was in ARU for 10 days from 08/01 to 08/12 however could not get out of the car when he reached home so was brought back to the hospital and readmitted on 08/13/20 BPH. does not make any urine. CODE: Patient is DNR/DNI. He does not want to be on a ventilator and does not want chest compressions and resuscitation. However Patient does not want to go into hospice. Dispo: Undecided Plan/VTE VTE Prophylaxis Ordered?: Yes VS, I&O, 24H, Fishbondave Vital Signs/I&O Vital Signs Date Time Temp Pulse Resp B/P (MAP) Pulse Ox O2 Delivery O2 Flow Rate FiO2 08/23/20 04:00 97.6 107 18 98/50 (66) 95 Room Air 08/18/20 08:00 I&O- Last 24 Hours up to 6 AM 08/23/20 06:00 Intake Total 470 ml Output Total 0 ml Balance 470 ml Laboratory Data 24H LABS Laboratory Tests 2 08/23/20 06:16: Nucleated Red Blood Cells % (auto) 0.0, Anion Gap 9, Glomerular Filtration Rate 11.2L, Calcium Level 7.4L CBC/BMP Laboratory Tests 08/23/20 06:16 Microbiology Microbiology 08/15/20 Urine Culture - Final, Complete Yeast Like Organism 08/13/20 Respiratory Virus Panel (PCR) (SABAS) - Final, Complete 08/13/20 Blood Culture - Final, Complete NO GROWTH AFTER 5 DAYS 08/13/20 Blood Culture - Final, Complete NO GROWTH AFTER 5 DAYS HUSSEIN FRANCO MD Aug 23, 2020 08:19
[2020-08-23] MEDS: FLUCONAZOLE 100 MG TAB PO SCH (18:45)
[2020-08-24] MEDS: SODIUM CHLORIDE 0.9% INJ 10 ML SYR IV PRN (00:49)
[2020-08-24 06:00] VITALS: BP 116/54
[2020-08-24] MEDS: PANTOPRAZOLE 40MG TAB (PROTONIX) PO SCH ×2 (09:00→09:01)
[2020-08-24] MEDS: ASPIRIN 81MG ENTERIC TABLET PO SCH ×2 (09:00→09:01)
[2020-08-24] MEDS: APIXABAN 2.5 MG TAB (ELIQUIS) PO SCH ×2 (09:01→20:34)
[2020-08-24] MEDS: MIDODRINE 5 MG TAB PO SCH ×3 (09:01→18:21)
[2020-08-24] MEDS: SODIUM CHLORIDE 0.9% INJ 10 ML SYR IV SCH (09:02)
[2020-08-24] MEDS: CHOLESTYRAMINE 4 GM PWD PKT PO SCH ×2 (14:02→20:34)
[2020-08-24 14:03] VITALS: BP 116/96
--- NOTE | 2020-08-24 14:49 | IPNPDOC ---
Subjective Date Seen The patient was seen on 08/24/20. Subjective Chief Complaint/HPI Continues to have diarrhea and stool incontinence, nauseous this morning and could not take all off his meds. His BP is better with increased midodrine. Was able to eat a little breakfast and keep it down. Patient had a COVID exposure 2 days ago so is not on isolation. Objective Physical Examination General Exam: Positive: Alert, Cooperative, No Acute Distress Eye Exam: Positive: PERRLA ENT Exam: Positive: Atraumatic, Mucous membr. moist/pink Neck Exam: Positive: Supple; Negative: JVD Chest Exam: Positive: Rales (crackles at the base of the right lung), Diminished (. Diminished breath sounds at the base of the left lung); Negative: Rhonchi, Wheezing Heart Exam: Positive: Rate Normal, Regular Rhythm; Negative: Gallops, Murmurs, Rubs Telemetry: Positive: PVCs, Other Telemetry: (bigemini) Abdomen Exam: Positive: Normal bowel sounds, Soft; Negative: Tenderness Extremity Exam: Positive: Edema (2+); Negative: Clubbing, Cyanosis Neuro Exam: Positive: Cranial Nerves 3-12 NL Assessment /Plan Assessment Patient is a 75 years old male with past history of metastatic pancreatic cancer on supportive care, Whipple procedure in 2000, end-stage renal diseases on dialysis, recurrent small bowel obstruction, hypotension presented to the hospital with generalized weakness. Patient was discharged on 08/11/20 from acute rehabilitation but after reaching home he was too weak to get out of bed to stand or walk. He could not make to HD on 08/13/20 due to extreme weakness. He was also constipated for 4 days associated with nausea and vomiting. Patient was admitted for failure to thrive, small bowel ileus, debility with metastatic pancreatic CA. Left lower lobe atelectasis and pneumonia zosyn x7 days Pro calcitonin still remains very high 7.07 Acute on Chronic hypotension increased dose of Midodrine to 15 mg tid. BP drops severely after HD and becomes nauseous and confused. Am cortisol level Small bowel ileus/ stool incontinence patient has h/o recurrent small bowel obstruction for years which started after wipples procedure. last episode of SBO with contained perforation was in June 2020. Now has diarrhea and stool incontinence. stopped laxatives. He continues to have intermittent vomiting and dry heaving. Pancreatic adenocarcinoma with mets to the bilateral lung and chronic left hydropneumothorax. Has bilateral cavitary nodules in the lung from 2014, biopsied in 2014, 2016 and 2017 all with pancreatic adenoca. Pleural effusion appeared in Jan 2020. negative cytology in Apr 2020. He was initially diagnosed in 2000 & had Whipple and chemoradiation; in 2014 there was recurrence in the lungs. 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 After that went on chemo holiday. Ca-19-9 continued to rise but he did not want to restart chemo. In April 2020 developed left pleural effusion had thoracocentesis. Again declined resuming chemo in Apr; per recent note 05/30/20 the patient last completed active treatment in apr 2017 left pleural fluid cytology from this admission is negative. Chronic left hydropneumothorax. 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 will continue with pleurx cath draining every other day. ESRD due to chemotherapy has not been able to tolerate full HD due to becoming hypotensive. UTI uc with yeast fluconazole x 7 days qtc ok. Paroxysmal Atrial fibrillation Now in sinus with PVCs and bigeminis. on eliquis. Chronic anemia anemia of chronic disease Debility / Deconditioning/ failure to thrive unable to walk anymore. Was in ARU for 10 days from 08/01 to 08/12 however could not get out of the car when he reached home so was brought back to the hospital and readmitted on 08/13/20 BPH. does not make any urine. CODE: Patient is DNR/DNI. He does not want to be on a ventilator and does not want chest compressions and resuscitation. However Patient does not want to go into hospice. Dispo: Undecided Plan/VTE VTE Prophylaxis Ordered?: Yes VS, I&O, 24H, Fishbone Vital Signs/I&O Vital Signs Date Time Temp Pulse Resp B/P (MAP) Pulse Ox O2 Delivery O2 Flow Rate FiO2 08/24/20 14:03 97.0 43 15 116/96 (103) 95 Room Air 08/18/20 08:00 I&O- Last 24 Hours up to 6 AM 08/24/20 07:00 Intake Total 500 ml Output Total 100 ml Balance 400 ml Laboratory Data Microbiology Microbiology 08/15/20 Urine Culture - Final, Complete Yeast Like Organism HUSSEIN FRANCO MD Aug 24, 2020 14:49
--- NOTE | 2020-08-24 15:50 | IPN ---
NEPROLOGY PROGRESS NOTE DATE: 08/24/2020 SUBJECTIVE: Patient was seen and examined at the bedside today morning. He is on isolation today because of possible COVID exposure from one of the staff members. He otherwise is asymptomatic. He was given a dose of 500 mL normal saline bolus and his midodrine was increased yesterday. His blood pressures are better. He is still complaining of diarrhea and loose stools every time he eats. OBJECTIVE: VITAL SIGNS: Temperature 97.8 degrees Fahrenheit, blood pressure 116/54, pulse 70, respiratory rate 18, saturating 95% on room air. INTAKE AND OUTPUT: PleurX catheter was drained yesterday and 100 mL of fluid came out. He has had incontinent voids. Weight in the bed scale is not available. PHYSICAL EXAMINATION: GENERAL: Patient is awake, alert, oriented times three, weak and cachectic, chronically malnourished, laying in bed. HEAD AND NECK EXAM: Extraocular muscles intact. Pupils equally round and reactive to light. Mucous membranes are moist. Neck is supple. There is no jugular venous distention (JVD). CARDIOVASCULAR: S1, S2. Regular rate. There is 1+ edema of the bilateral lower extremities. RESPIRATORY: Mildly decreased breath sounds at the bases, left worse than right. He has a PleurX catheter on the right. ABDOMEN: Soft. Positive bowel sounds. Nontender. No organomegaly. MUSCULOSKELETAL: No clubbing or cyanosis. Edema of the lower extremities as mentioned above. CENTRAL NERVOUS SYSTEM (CINDER WORKER): No focal deficits. Power is 5/5 in all extremities. LABORATORY REVIEW: CBC showed a WBC 9.6, hemoglobin 10.4. That is from yesterday. BMP is also from yesterday. Procalcitonin done yesterday morning was 7.07 CURRENT INPATIENT MEDICATIONS: Patient's medications were all reviewed by myself. He was given a normal saline bolus 500 mL yesterday. Today, fluconazole has been stopped. Zosyn has also been stopped. Midodrine dose has been increased to 15 mg by mouth three times a day. I have started the patient on cholestyramine 2 grams by mouth twice a day. ASSESSMENT ANDPLAN: 1. End-stage renal disease. Patient's blood pressures were very soft. He was dialyzed yesterday. If his blood pressures allows, then he will be dialyzed tomorrow morning. 2. Hypotension. He was given saline and midodrine has been increased. Hypotension is better today as compared with yesterday. 3. Persistent diarrhea. Patient has history of cancer of the pancreas. I am going to start the patient on cholestyramine 2 grams by mouth twice a day to see if it helps with his diarrhea. 4. Recurrent left-sided pleural effusion. He has a PleurX catheter on the left side. It is drained every 48 hours. Last drainage was yesterday. 5. Cancer of the pancreas with metastases to lungs. Patient is currently not on any chemotherapy. Clinically, he is deteriorating. He is cachectic and weak. Overall, he has a poor prognosis. If patient is not able to tolerate hemodialysis tomorrow morning, then nephrology service will not offer any more renal replacement therapy. [facility]
[2020-08-24] MEDS: ONDANSETRON 4MG/2ML VIAL IV PRN (20:34)
[2020-08-24 22:00] VITALS: BP 106/60
[2020-08-25 05:26] LABS: BASO % 0.3 % (0.0-1.0); EOS # 0.1 10^3/uL (0.0-0.5); EOS % 1.6 % (0.0-3.0); HEMATOCRIT 34.6 % (42.0-52.0); HEMOGLOBIN 10.7 g/dl (13.5-17.5); LYMPH # 0.7 10^3/uL (1.5-5.0); LYMPH % 7.9 % (24.0-44.0); MEAN CORPUSCULAR HEMOGLOBIN 28.4 pg (27.0-33.0); MEAN CORPUSCULAR HGB CONC 30.9 g/dl (32.0-36.5); MEAN CORPUSCULAR VOLUME 91.8 fl (80.0-96.0); MONO # 0.6 10^3/uL (0.0-0.8); MONO % 7.4 % (2.0-8.0); NEUTROPHILS # 7.1 10^3/uL (1.5-8.5); NEUTROPHILS % 81.6 % (36.0-66.0); PLATELET COUNT, AUTOMATED 207 10^3/uL (150-450); RED BLOOD COUNT 3.77 10^6/uL (4.30-6.10); WHITE BLOOD COUNT 8.7 10^3/uL (4.0-10.0)
[2020-08-25 06:00] VITALS: BP 109/58
[2020-08-25 06:14] LABS: ALBUMIN 1.3 GM/DL (3.2-5.2); CALCIUM LEVEL 7.8 MG/DL (8.8-10.2); CREATININE FOR GFR 6.6 MG/DL (0.70-1.30); GLOMERULAR FILTRATION RATE 8.7 (>42); PHOSPHORUS LEVEL 3.9 MG/DL (2.5-4.9); POTASSIUM SERUM 3.4 MEQ/L (3.5-5.1)
[2020-08-25] MEDS: ASPIRIN 81MG ENTERIC TABLET PO SCH (06:25)
[2020-08-25] MEDS: PANTOPRAZOLE 40MG TAB (PROTONIX) PO SCH (06:26)
[2020-08-25] MEDS: APIXABAN 2.5 MG TAB (ELIQUIS) PO SCH ×2 (06:27→20:07)
[2020-08-25] MEDS: ONDANSETRON 4MG/2ML VIAL IV PRN ×2 (06:28→12:56)
[2020-08-25] MEDS: SODIUM CHLORIDE 0.9% INJ 10 ML SYR IV SCH (06:28)
[2020-08-25] MEDS: CHOLESTYRAMINE 4 GM PWD PKT PO SCH ×2 (06:28→21:00)
[2020-08-25] MEDS: MIDODRINE 5 MG TAB PO SCH ×3 (06:28→17:07)
[2020-08-25 07:11] LABS: CORTISOL AM 20.2 UG/DL (4.3-22.4)
--- NOTE | 2020-08-25 10:56 | IPNPDOC ---
Subjective General Date/Time Seen The patient was seen on 08/25/20 at 10:49. Subject Chief Complaint/History The patient is a 75-year-old male admitted with a reason for visit of Esrd,Ileus Unspecified. SUBJECTIVE: Patient was seen and examined at the bedside this morning. His BP has improved on midodrine and he is now on contact precautions due to possible COVID19 exposure from a staff member. He denies any SOB/cough/n/v/d today. It was explained to him that we will attempt HD again today, but if his BP does not support it, he will no longer be a candidate for HD. He states he is happy that his BPs are better today. OBJECTIVE: PHYSICAL EXAMINATION: VITAL SIGNS: see below GENERAL: alert and oriented, appears quite cachectic, in no apparent distress, pleasant and conversant in full sentences. HEENT: PERRL, EOMI, Oral mucous membranes are moist without lesions. NECK: The patient has slightly elevated JVD. No adenopathy is appreciated. No thyromegaly CHEST/LUNGS: Clear to auscultation bilaterally. There is no subcutaneous air appreciated. There is no tenderness to the chest wall. Tunneled HD catheter in place. PleurX catheter in place. Diminished breath sounds at the left base. HEART: Regular rate and rhythm. No murmurs, rubs, or gallops are appreciated. Distal pulses are 2+. No carotid bruits appreciated. ABDOMEN: Soft, nontender, and nondistended. Bowel sounds are positive. No organomegaly is appreciated. No masses are appreciated. There are no peritoneal signs. There is no Dowling sign. EXTREMITIES: 2+ peripheral edema. Edema of the upper extremities around the elbows. There is no focal long bone tenderness or deformity. SKIN: The patients skin is warm and dry, without rashes or lesions. PSYCHIATRIC: AAO x 3, normal mood/affect NEUROLOGIC: No obvious focal deficits IMAGING: No new imaging ASSESSMENT: This is a 75-year-old male with history of metastatic pancreatic cancer status post Whipple procedure in 2000 with recurrent malignant pleural effusions, end- stage renal disease on dialysis now with hypotension. PLAN: 1. End-stage renal disease on hemodialysis: -Will attempt HD today as BPs better with midodrine -It has been explained to the patient that we will attempt HD again today but if BP does not support and it needs to be stopped he will no longer be a candidate for HD. 2. Hypotension: -Blood pressure this morning 109/58 -Continue Midodrine to 15mg TID 3. Possible pneumonia: -s/p IV Zosyn 4. Left recurrent malignant pleural effusion requiring drainage every 48 hours: -Continue drainage qOD 5. Diarrhea: -Started on Cholestyramine 2 gm BID DISPO: HD today Current Medications Current Medications Current Medications Medications (Trade) Dose Ordered Sig/Dejan Route PRN Reason Start Time Stop Time Status Last Admin Dose Admin Acetaminophen (Tylenol Tab) 650 mg Q4H PRN PO PAIN OR FEVER 08/13/20 15:45 08/22/20 08:50 Apixaban (Eliquis) 2.5 mg BID PO 08/13/20 21:00 08/25/20 06:27 Aspirin (Ecotrin) 81 mg DAILY PO 08/14/20 09:00 08/25/20 06:25 Bisacodyl (Dulcolax Suppository) 10 mg DAILY ND 08/16/20 09:00 08/23/20 11:09 DC Bisacodyl (Dulcolax Tab) 10 mg DAILY PO 08/15/20 09:00 08/21/20 09:03 DC 08/19/20 08:32 Bisacodyl (Dulcolax Tab) 10 mg QHS PO 08/21/20 21:00 08/23/20 11:09 DC Cholestyramine Resin (Questran) 2 gm BID PO 08/24/20 11:35 08/25/20 06:28 Dextrose/Sodium Chloride 1,000 ml @ 60 mls/hr [id number] IV 08/17/20 08:00 08/19/20 10:27 DC 08/19/20 04:15 Fluconazole (Diflucan Tablet) 100 mg DAILY PO 08/16/20 09:00 08/17/20 07:55 DC 08/16/20 17:17 Fluconazole (Diflucan Tablet) 100 mg DAILY@1800 PO 08/18/20 18:00 08/23/20 21:00 DC 08/23/20 18:45 Fluconazole 100 mg/IV Miscellaneous Supplies 50 ml @ 50 mls/hr Q24H IV 08/17/20 10:00 08/18/20 11:17 DC 08/18/20 09:37 Heparin Sodium (Heparin (Flush)) 500 units ASDIRECTED PRN IV SEE LABEL COMMENTS 08/14/20 04:00 08/24/20 00:49 Heparin Sodium (Heparin (Flush)) 500 units DAILY IV 08/14/20 09:00 08/25/20 06:27 Heparin Sodium (Heparin) Please refer to ... ASDIRECTED XX 08/14/20 09:25 08/15/20 09:24 DC Heparin Sodium (Heparin) Please refer to ... ASDIRECTED XX 08/25/20 06:00 08/26/20 05:59 Heparin Sodium (Heparin) dose as per volume indica... ASDIRECTED PRN IV SEE LABEL COMMENTS 08/14/20 09:25 08/15/20 09:24 DC Heparin Sodium (Heparin) dose as per volume indica... ASDIRECTED PRN IV SEE LABEL COMMENTS 08/25/20 06:00 08/25/20 11:44 Heparin Sodium (Porcine) (Heparin) 5,000 units Q12H SC 08/13/20 21:00 08/13/20 16:18 DC Home Med (Med Rec Complete!) ASDIRECTED XX 08/13/20 16:00 08/13/20 16:00 DC Metoclopramide HCl (REGLAN INJection) 5 mg Q8HP PRN IV NAUSEA OR VOMITING 08/15/20 12:30 08/17/20 07:55 DC Midodrine (Proamatine) 5 mg BID PO 08/13/20 21:00 08/13/20 16:19 DC Midodrine (Proamatine) 5 mg TID@0600,1200,1800 PO 08/13/20 18:00 08/16/20 21:09 DC 08/16/20 17:17 Midodrine (Proamatine) 10 mg TID@0600,1200,1800 PO 08/17/20 06:00 08/21/20 09:04 DC 08/21/20 06:14 Midodrine (Proamatine) 10 mg TID@0800,1400,2000 PO 08/21/20 14:00 08/23/20 10:23 DC 08/23/20 08:37 Midodrine (Proamatine) 15 mg TID@0800,1200,1600 PO 08/23/20 18:46 08/25/20 06:28 Midodrine (Proamatine) 15 mg TID@0800,1399,1999 PO 08/23/20 08:00 08/23/20 10:40 DC Midodrine (Proamatine) 15 mg TID@0800,1399,1999 PO 08/23/20 14:00 08/23/20 18:46 DC 08/23/20 15:16 Ondansetron HCl (ZOFRAN INJection) 4 mg Q4HP PRN IV NAUSEA OR VOMITING 08/14/20 09:40 08/25/20 06:28 Oxycodone HCl (Roxicodone, Oxyir) 5 mg Q4H PRN PO PAIN 08/13/20 15:50 08/19/20 12:20 DC Pantoprazole Sodium (Protonix) 40 mg DAILY PO 08/14/20 09:00 08/25/20 06:26 Piperacillin Sod/ Tazobactam Sod 2.25 gm/Dextrose 50 ml @ 100 mls/hr Q8H IV 08/16/20 23:00 08/23/20 23:55 DC 08/23/20 23:53 Prochlorperazine (Compazine) 10 mg Q6HP PRN IV VOMITING 08/17/20 07:50 Senna/Docusate Sodium (Senokot S) 1 tab BID PO 08/16/20 09:00 08/21/20 09:03 DC 08/19/20 20:13 Senna/Docusate Sodium (Senokot S) 1 tab DAILY PO 08/21/20 09:00 08/23/20 11:09 DC Sodium Biphosphate/ Sodium Phosphate (Fleet Enema) 1 ea DAILYPRN PRN ND CONSTIPATION 08/13/20 16:00 08/16/20 06:57 DC Sodium Chloride 1,000 ml @ 100 mls/hr Q10H IV 08/13/20 12:35 08/13/20 16:18 DC 08/13/20 14:25 Sodium Chloride (Nacl 0.9%) 200 ml ASDIRECTED PRN IV SEE LABEL COMMENTS 08/14/20 09:25 08/15/20 09:24 DC Sodium Chloride (Saline Lock Flush) 10 ml ASDIRECTED PRN IV SEE LABEL COMMENTS 08/14/20 04:00 08/24/20 00:49 Sodium Chloride (Saline Lock Flush) 10 ml DAILY IV 08/14/20 09:00 08/25/20 06:28 Allergies Coded Allergies: No Known Allergies (Unverified , 07/27/18) VS,Fishbone, I+O VS, Fishbone, I+O Laboratory Tests 08/25/20 05:18 Vital Signs Date Time Temp Pulse Resp B/P (MAP) Pulse Ox O2 Delivery O2 Flow Rate FiO2 08/25/20 06:00 97.0 45 18 109/58 (75) 95 Room Air I&O- Last 24 Hours up to 6 AM 08/25/20 05:59 Intake Total 835 ml Output Total 0 ml Balance 835 ml GME ATTESTATION GME ATTESTATION My faculty preceptor for this patient encounter was physically present during the encounter and was fully available. All aspects of the patient interview, e xamination, medical decision making process, and medical care plan development were reviewed and approved by the faculty preceptor. The faculty preceptor is aware and concurs with the plan as stated in the body of this note and will attest to such by his/her cosignature. LAURA GIRALDO MD Aug 25, 2020 10:56
[2020-08-25] MEDS: SODIUM CHLORIDE 0.9% INJ 10 ML SYR IV PRN (12:57)
[2020-08-25 17:24] VITALS: BP 145/70
[2020-08-25 22:00] VITALS: BP 104/56
[2020-08-26 06:00] VITALS: BP 104/55
[2020-08-26] MEDS: ONDANSETRON 4MG/2ML VIAL IV PRN (09:16)
[2020-08-26] MEDS: PANTOPRAZOLE 40MG TAB (PROTONIX) PO SCH (09:17)
[2020-08-26] MEDS: SODIUM CHLORIDE 0.9% INJ 10 ML SYR IV SCH (09:17)
[2020-08-26] MEDS: MIDODRINE 5 MG TAB PO SCH ×3 (09:17→17:01)
[2020-08-26] MEDS: APIXABAN 2.5 MG TAB (ELIQUIS) PO SCH ×2 (09:17→23:01)
[2020-08-26] MEDS: ASPIRIN 81MG ENTERIC TABLET PO SCH (09:17)
--- NOTE | 2020-08-26 09:21 | IPNPDOC ---
Subjective Date Seen The patient was seen on 08/26/20. Subjective Chief Complaint/HPI Patient was able to take some breakfast . Had 1 bowel movement overnight. But soon after breakfast he reports he is having more diarrhea. As per nurses whenever he eats he immediately has a bowel movement. No nausea no abdominal pain. He did tolerate about 3 hours of HD yesterday . No fluid removal. Planned for a family meeting today for plan of care and disposition. Objective Physical Examination General Exam: Positive: Alert, Cooperative, No Acute Distress Eye Exam: Positive: PERRLA ENT Exam: Positive: Atraumatic, Mucous membr. moist/pink Neck Exam: Positive: Supple; Negative: JVD Chest Exam: Positive: Rales (crackles at the base of the right lung), Diminished (. Diminished breath sounds at the base of the left lung); Negative: Rhonchi, Wheezing Heart Exam: Positive: Rate Normal, Regular Rhythm; Negative: Gallops, Murmurs, Rubs Telemetry: Positive: PVCs, Other Telemetry: (bigemini) Abdomen Exam: Positive: Normal bowel sounds, Soft; Negative: Tenderness Extremity Exam: Positive: Edema (2+); Negative: Clubbing, Cyanosis Neuro Exam: Positive: Cranial Nerves 3-12 NL Assessment /Plan Assessment Patient is a 75 years old male with past history of metastatic pancreatic cancer on supportive care, Whipple procedure in 2000, end-stage renal diseases on dialysis, recurrent small bowel obstruction, hypotension presented to the hospital with generalized weakness. Patient was discharged on 08/11/20 from acute rehabilitation but after reaching home he was too weak to get out of bed to stand or walk. He could not make to HD on 08/13/20 due to extreme weakness. He was also constipated for 4 days associated with nausea and vomiting. Patient was admitted for failure to thrive, small bowel ileus, debility with metastatic pancreatic CA. Left lower lobe atelectasis and pneumonia zosyn x7 days Pro calcitonin still remains very high 7.07 Acute on Chronic hypotension increased dose of Midodrine to 15 mg tid. BP drops severely after HD and becomes nauseous and confused. Am cortisol level Small bowel ileus/ stool incontinence patient has h/o recurrent small bowel obstruction for years which started after wipples procedure. last episode of SBO with contained perforation was in June 2020. Now has diarrhea and stool incontinence. stopped laxatives. He continues to have intermittent vomiting and dry heaving. Pancreatic adenocarcinoma with mets to the bilateral lung and chronic left hydropneumothorax. Has bilateral cavitary nodules in the lung from 2014, biopsied in 2014, 2016 and 2017 all with pancreatic adenoca. Pleural effusion appeared in Jan 2020. negative cytology in Apr 2020. He was initially diagnosed in 2000 & had Whipple and chemoradiation; in 2014 there was recurrence in the lungs. 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 After that went on chemo holiday. Ca-19-9 continued to rise but he did not want to restart chemo. In April 2020 developed left pleural effusion had thoracocentesis. Again declined resuming chemo in Apr; per recent note 05/30/20 the patient last completed active treatment in apr 2017 left pleural fluid cytology from this admission is negative. Chronic left hydropneumothorax. 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 will continue with pleurx cath draining every other day. ESRD due to chemotherapy has not been able to tolerate full HD due to becoming hypotensive. UTI uc with yeast fluconazole x 7 days qtc ok. Paroxysmal Atrial fibrillation Now in sinus with PVCs and bigeminis. on eliquis. Chronic anemia anemia of chronic disease Debility / Deconditioning/ failure to thrive unable to walk anymore. Was in ARU for 10 days from 08/01 to 08/12 however could not get out of the car when he reached home so was brought back to the hospital and readmitted on 08/13/20 BPH. does not make any urine. CODE: Patient is DNR/DNI. He does not want to be on a ventilator and does not want chest compressions and resuscitation. DME Needed: Hospital bed as patient is bed bound and needs frequent changes in body position. Patient frequently requires elevation of head to greater then 30 degrees due to lung issues. Plan/VTE VTE Prophylaxis Ordered?: Yes VS, I&O, 24H, Fishbone Vital Signs/I&O Vital Signs Date Time Temp Pulse Resp B/P (MAP) Pulse Ox O2 Delivery O2 Flow Rate FiO2 08/26/20 06:00 97.2 40 18 104/55 (71) 95 Room Air I&O- Last 24 Hours up to 6 AM 08/26/20 06:00 Intake Total 540 ml Output Total 400 ml Balance 140 ml HUSSEIN FRANCO MD Aug 26, 2020 09:21
[2020-08-26 09:51] LABS: BASO # 0.1 10^3/uL (0.0-0.2); BASO % 0.6 % (0.0-1.0); EOS # 0.1 10^3/uL (0.0-0.5); HEMOGLOBIN 11.1 g/dl (13.5-17.5); LYMPH # 0.7 10^3/uL (1.5-5.0); LYMPH % 7.1 % (24.0-44.0); MEAN CORPUSCULAR HGB CONC 30.8 g/dl (32.0-36.5); MEAN CORPUSCULAR VOLUME 90.9 fl (80.0-96.0); MONO # 0.6 10^3/uL (0.0-0.8); MONO % 5.9 % (2.0-8.0); NEUTROPHILS # 8.2 10^3/uL (1.5-8.5); NEUTROPHILS % 84.5 % (36.0-66.0); PLATELET COUNT, AUTOMATED 219 10^3/uL (150-450); RED BLOOD COUNT 3.96 10^6/uL (4.30-6.10); WHITE BLOOD COUNT 9.7 10^3/uL (4.0-10.0)
[2020-08-26 10:56] LABS: CALCIUM LEVEL 7.3 MG/DL (8.8-10.2); CREATININE FOR GFR 5.23 MG/DL (0.70-1.30); GLOMERULAR FILTRATION RATE 11.4 (>42); POTASSIUM SERUM 3.3 MEQ/L (3.5-5.1)
[2020-08-26] MEDS ORDERED: POTASSIUM CHLORIDE 10 MEQ SR TABLET PO ONE (11:30)
[2020-08-26] MEDS: CHOLESTYRAMINE 4 GM PWD PKT PO SCH ×2 (13:30→23:01)
--- NOTE | 2020-08-26 13:55 | IPNPDOC ---
Subjective General Date/Time Seen The patient was seen on 08/26/20 at 13:52. Subject Chief Complaint/History The patient is a 75-year-old male admitted with a reason for visit of Esrd,Ileus Unspecified. SUBJECTIVE: Patient was seen and examined at the bedside this morning. He underwent HD yesterday with only one episode of hypotension but had a total of 150cc removed and he was able to tolerate the whole session. He has somewhat of a flat affect today, and verbalizes no complaints. No issues overnight reported by nursing. Plan for family meeting today at 11:30AM with his and daughter in attendance. OBJECTIVE: PHYSICAL EXAMINATION: VITAL SIGNS: see below GENERAL: alert and oriented, appears quite cachectic, in no apparent distress, pleasant and conversant in full sentences. HEENT: PERRL, EOMI, Oral mucous membranes are moist without lesions. NECK: The patient has slightly elevated JVD. No adenopathy is appreciated. No thyromegaly CHEST/LUNGS: Clear to auscultation bilaterally. There is no subcutaneous air appreciated. There is no tenderness to the chest wall. Tunneled HD catheter in place. PleurX catheter in place. Diminished breath sounds at the left base. HEART: Regular rate and rhythm. No murmurs, rubs, or gallops are appreciated. Distal pulses are 2+. No carotid bruits appreciated. ABDOMEN: Soft, nontender, and nondistended. Bowel sounds are positive. No organomegaly is appreciated. No masses are appreciated. There are no peritoneal signs. There is no Metcalfe sign. EXTREMITIES: 3+ peripheral edema. There is no focal long bone tenderness or deformity. SKIN: The patients skin is warm and dry, without rashes or lesions. PSYCHIATRIC: AAO x 3, normal mood/affect NEUROLOGIC: No obvious focal deficits IMAGING: No new imaging ASSESSMENT: This is a 75-year-old male with history of metastatic pancreatic cancer status post Whipple procedure in 2000 with recurrent malignant pleural effusions, end- stage renal disease on dialysis now with hypotension. PLAN: 1. End-stage renal disease on hemodialysis: -HD done yesterday with no issue 2. Hypotension: -Blood pressure this morning 104/55 -Continue Midodrine to 15mg TID 3. Possible pneumonia: -s/p IV Zosyn 4. Left recurrent malignant pleural effusion requiring drainage every 48 hours: -Continue drainage qOD 5. Diarrhea: -Started on Cholestyramine 2 gm BID DISPO: Family meeting for goals of care today Current Medications Current Medications Current Medications Medications (Trade) Dose Ordered Sig/Dejan Route PRN Reason Start Time Stop Time Status Last Admin Dose Admin Acetaminophen (Tylenol Tab) 650 mg Q4H PRN PO PAIN OR FEVER 08/13/20 15:45 08/22/20 08:50 Apixaban (Eliquis) 2.5 mg BID PO 08/13/20 21:00 08/26/20 09:17 Aspirin (Ecotrin) 81 mg DAILY PO 08/14/20 09:00 08/26/20 09:17 Bisacodyl (Dulcolax Suppository) 10 mg DAILY VT 08/16/20 09:00 08/23/20 11:09 DC Bisacodyl (Dulcolax Tab) 10 mg DAILY PO 08/15/20 09:00 08/21/20 09:03 DC 08/19/20 08:32 Bisacodyl (Dulcolax Tab) 10 mg QHS PO 08/21/20 21:00 08/23/20 11:09 DC Cholestyramine Resin (Questran) 2 gm BID PO 08/24/20 11:35 08/26/20 13:30 Dextrose/Sodium Chloride 1,000 ml @ 60 mls/hr [id number] IV 08/17/20 08:00 08/19/20 10:27 DC 08/19/20 04:15 Fluconazole (Diflucan Tablet) 100 mg DAILY PO 08/16/20 09:00 08/17/20 07:55 DC 08/16/20 17:17 Fluconazole (Diflucan Tablet) 100 mg DAILY@1800 PO 08/18/20 18:00 08/23/20 21:00 DC 08/23/20 18:45 Fluconazole 100 mg/IV Miscellaneous Supplies 50 ml @ 50 mls/hr Q24H IV 08/17/20 10:00 08/18/20 11:17 DC 08/18/20 09:37 Heparin Sodium (Heparin (Flush)) 500 units ASDIRECTED PRN IV SEE LABEL COMMENTS 08/14/20 04:00 08/25/20 12:57 Heparin Sodium (Heparin (Flush)) 500 units DAILY IV 08/14/20 09:00 08/26/20 09:17 Heparin Sodium (Heparin) Please refer to ... ASDIRECTED XX 08/14/20 09:25 08/15/20 09:24 DC Heparin Sodium (Heparin) Please refer to ... ASDIRECTED XX 08/25/20 06:00 08/26/20 05:59 DC Heparin Sodium (Heparin) dose as per volume indica... ASDIRECTED PRN IV SEE LABEL COMMENTS 08/14/20 09:25 08/15/20 09:24 DC Heparin Sodium (Heparin) dose as per volume indica... ASDIRECTED PRN IV SEE LABEL COMMENTS 08/25/20 06:00 08/25/20 11:44 DC Heparin Sodium (Porcine) (Heparin) 5,000 units Q12H SC 08/13/20 21:00 08/13/20 16:18 DC Home Med (Med Rec Complete!) ASDIRECTED XX 08/13/20 16:00 08/13/20 16:00 DC Metoclopramide HCl (REGLAN INJection) 5 mg Q8HP PRN IV NAUSEA OR VOMITING 08/15/20 12:30 08/17/20 07:55 DC Midodrine (Proamatine) 5 mg BID PO 08/13/20 21:00 08/13/20 16:19 DC Midodrine (Proamatine) 5 mg TID@0600,1200,1800 PO 08/13/20 18:00 08/16/20 21:09 DC 08/16/20 17:17 Midodrine (Proamatine) 10 mg TID@0600,1200,1800 PO 08/17/20 06:00 08/21/20 09:04 DC 08/21/20 06:14 Midodrine (Proamatine) 10 mg TID@0800,1400,2000 PO 08/21/20 14:00 08/23/20 10:23 DC 08/23/20 08:37 Midodrine (Proamatine) 15 mg TID@0800,1200,1600 PO 08/23/20 18:46 08/26/20 12:23 Midodrine (Proamatine) 15 mg TID@0800,1400,2000 PO 08/23/20 08:00 08/23/20 10:40 DC Midodrine (Proamatine) 15 mg TID@0800,1400,2000 PO 08/23/20 14:00 08/23/20 18:46 DC 08/23/20 15:16 Ondansetron HCl (ZOFRAN INJection) 4 mg Q4HP PRN IV NAUSEA OR VOMITING 08/14/20 09:40 08/26/20 09:16 Oxycodone HCl (Roxicodone, Oxyir) 5 mg Q4H PRN PO PAIN 08/13/20 15:50 08/19/20 12:20 DC Pantoprazole Sodium (Protonix) 40 mg DAILY PO 08/14/20 09:00 08/26/20 09:17 Piperacillin Sod/ Tazobactam Sod 2.25 gm/Dextrose 50 ml @ 100 mls/hr Q8H IV 08/16/20 23:00 08/23/20 23:55 DC 08/23/20 23:53 Prochlorperazine (Compazine) 10 mg Q6HP PRN IV VOMITING 08/17/20 07:50 Senna/Docusate Sodium (Senokot S) 1 tab BID PO 08/16/20 09:00 08/21/20 09:03 DC 08/19/20 20:13 Senna/Docusate Sodium (Senokot S) 1 tab DAILY PO 08/21/20 09:00 08/23/20 11:09 DC Sodium Biphosphate/ Sodium Phosphate (Fleet Enema) 1 ea DAILYPRN PRN [place] CONSTIPATION 08/13/20 16:00 08/16/20 06:57 DC Sodium Chloride 1,000 ml @ 100 mls/hr Q10H IV 08/13/20 12:35 08/13/20 16:18 DC 08/13/20 14:25 Sodium Chloride (Nacl 0.9%) 200 ml ASDIRECTED PRN IV SEE LABEL COMMENTS 08/14/20 09:25 08/15/20 09:24 DC Sodium Chloride (Saline Lock Flush) 10 ml ASDIRECTED PRN IV SEE LABEL COMMENTS 08/14/20 04:00 08/25/20 12:57 Sodium Chloride (Saline Lock Flush) 10 ml DAILY IV 08/14/20 09:00 08/26/20 09:17 Allergies Coded Allergies: No Known Allergies (Unverified , 07/27/18) VS,Fishbone, I+O VS, Fishbone, I+O Laboratory Tests 08/26/20 09:31 Vital Signs Date Time Temp Pulse Resp B/P (MAP) Pulse Ox O2 Delivery O2 Flow Rate FiO2 08/26/20 06:00 97.2 40 18 104/55 (71) 95 Room Air I&O- Last 24 Hours up to 6 AM 08/26/20 05:59 Intake Total 540 ml Output Total 400 ml Balance 140 ml GME ATTESTATION GME ATTESTATION My faculty preceptor for this patient encounter was physically present during the encounter and was fully available. All aspects of the patient interview, examination, medical decision making process, and medical care plan development were reviewed and approved by the faculty preceptor. The faculty preceptor is aware and concurs with the plan as stated in the body of this note and will attest to such by his/her cosignature. LAURA GIRALDO MD Aug 26, 2020 13:55
[2020-08-26 14:00] VITALS: BP 107/64
[2020-08-26 22:00] VITALS: BP 108/63
[2020-08-27 06:00] VITALS: BP 139/77
[2020-08-27] MEDS: ASPIRIN 81MG ENTERIC TABLET PO SCH (06:35)
[2020-08-27] MEDS: CHOLESTYRAMINE 4 GM PWD PKT PO SCH ×2 (06:36→22:45)
[2020-08-27] MEDS: PANTOPRAZOLE 40MG TAB (PROTONIX) PO SCH (06:36)
[2020-08-27] MEDS: APIXABAN 2.5 MG TAB (ELIQUIS) PO SCH ×2 (06:36→21:29)
[2020-08-27] MEDS: ONDANSETRON 4MG/2ML VIAL IV PRN (10:48)
[2020-08-27] MEDS: SODIUM CHLORIDE 0.9% INJ 10 ML SYR IV SCH (10:49)
[2020-08-27] MEDS: MIDODRINE 5 MG TAB PO SCH ×3 (10:50→17:15)
[2020-08-27 11:39] LABS: BASO % 0.5 % (0.0-1.0); EOS # 0.1 10^3/uL (0.0-0.5); EOS % 1.1 % (0.0-3.0); HEMATOCRIT 33.6 % (42.0-52.0); HEMOGLOBIN 10.4 g/dl (13.5-17.5); LYMPH # 0.6 10^3/uL (1.5-5.0); LYMPH % 7.1 % (24.0-44.0); MEAN CORPUSCULAR HEMOGLOBIN 28.3 pg (27.0-33.0); MEAN CORPUSCULAR VOLUME 91.6 fl (80.0-96.0); MONO # 0.5 10^3/uL (0.0-0.8); MONO % 5.6 % (2.0-8.0); NEUTROPHILS # 7.5 10^3/uL (1.5-8.5); NEUTROPHILS % 84.9 % (36.0-66.0); PLATELET COUNT, AUTOMATED 230 10^3/uL (150-450); RED BLOOD COUNT 3.67 10^6/uL (4.30-6.10); WHITE BLOOD COUNT 8.9 10^3/uL (4.0-10.0)
[2020-08-27 12:56] LABS: CALCIUM LEVEL 7.5 MG/DL (8.8-10.2); CREATININE FOR GFR 5.45 MG/DL (0.70-1.30); GLOMERULAR FILTRATION RATE 10.9 (>42); POTASSIUM SERUM 3.6 MEQ/L (3.5-5.1)
[2020-08-27 16:00] VITALS: BP 108/58
--- NOTE | 2020-08-27 16:11 | IPNPDOC ---
Subjective General Date/Time Seen The patient was seen on 08/27/20 at 16:09. Subject Chief Complaint/History The patient is a 75-year-old male admitted with a reason for visit of Esrd,Ileus Unspecified. SUBJECTIVE: Patient was seen and examined at the bedside this morning while nursing is draining his PleurX catheter. He has no complaints and there were no issues reported overnight. He will go for HD today. OBJECTIVE: PHYSICAL EXAMINATION: VITAL SIGNS: see below GENERAL: alert and oriented, appears quite cachectic, in no apparent distress, pleasant and conversant in full sentences. HEENT: PERRL, EOMI, Oral mucous membranes are moist without lesions. NECK: The patient has slightly elevated JVD. No adenopathy is appreciated. No thyromegaly CHEST/LUNGS: Clear to auscultation bilaterally. There is no subcutaneous air appreciated. There is no tenderness to the chest wall. Tunneled HD catheter in place. PleurX catheter in place. Diminished breath sounds at the left base. HEART: Regular rate and rhythm. No murmurs, rubs, or gallops are appreciated. Distal pulses are 2+. No carotid bruits appreciated. ABDOMEN: Soft, nontender, and nondistended. Bowel sounds are positive. No organomegaly is appreciated. No masses are appreciated. There are no peritoneal signs. There is no [place] sign. EXTREMITIES: 3+ peripheral edema. There is no focal long bone tenderness or deformity. SKIN: The patients skin is warm and dry, without rashes or lesions. PSYCHIATRIC: AAO x 3, normal mood/affect NEUROLOGIC: No obvious focal deficits IMAGING: No new imaging ASSESSMENT: This is a 75-year-old male with history of metastatic pancreatic cancer status post Whipple procedure in 2000 with recurrent malignant pleural effusions, end- stage renal disease on dialysis now with hypotension. PLAN: 1. End-stage renal disease on hemodialysis: -HD today 2. Hypotension: -Blood pressure this morning 139/77 -Continue Midodrine to 15mg TID 3. Possible pneumonia: -s/p IV Zosyn 4. Left recurrent malignant pleural effusion requiring drainage every 48 hours: -Continue drainage qOD 5. Diarrhea: -Started on Cholestyramine 2 gm BID DISPO: HD today Current Medications Current Medications Current Medications Medications (Trade) Dose Ordered Sig/Dejan Route PRN Reason Start Time Stop Time Status Last Admin Dose Admin Acetaminophen (Tylenol Tab) 650 mg Q4H PRN PO PAIN OR FEVER 08/13/20 15:45 08/22/20 08:50 Apixaban (Eliquis) 2.5 mg BID PO 08/13/20 21:00 08/27/20 06:36 Aspirin (Ecotrin) 81 mg DAILY PO 08/14/20 09:00 08/27/20 06:35 Bisacodyl (Dulcolax Suppository) 10 mg DAILY TX 08/16/20 09:00 08/23/20 11:09 DC Bisacodyl (Dulcolax Tab) 10 mg DAILY PO 08/15/20 09:00 08/21/20 09:03 DC 08/19/20 08:32 Bisacodyl (Dulcolax Tab) 10 mg QHS PO 08/21/20 21:00 08/23/20 11:09 DC Cholestyramine Resin (Questran) 2 gm BID PO 08/24/20 11:35 08/27/20 06:36 Dextrose/Sodium Chloride 1,000 ml @ 60 mls/hr [id number] IV 08/17/20 08:00 08/19/20 10:27 DC 08/19/20 04:15 Fluconazole (Diflucan Tablet) 100 mg DAILY PO 08/16/20 09:00 08/17/20 07:55 DC 08/16/20 17:17 Fluconazole (Diflucan Tablet) 100 mg DAILY@1800 PO 08/18/20 18:00 08/23/20 21:00 DC 08/23/20 18:45 Fluconazole 100 mg/IV Miscellaneous Supplies 50 ml @ 50 mls/hr Q24H IV 08/17/20 10:00 08/18/20 11:17 DC 08/18/20 09:37 Heparin Sodium (Heparin (Flush)) 500 units ASDIRECTED PRN IV SEE LABEL COMMENTS 08/14/20 04:00 08/25/20 12:57 Heparin Sodium (Heparin (Flush)) 500 units DAILY IV 08/14/20 09:00 08/27/20 10:49 Heparin Sodium (Heparin) Please refer to ... ASDIRECTED XX 08/14/20 09:25 08/15/20 09:24 DC Heparin Sodium (Heparin) Please refer to ... ASDIRECTED XX 08/25/20 06:00 08/26/20 05:59 DC Heparin Sodium (Heparin) Please refer to ... ASDIRECTED XX 08/27/20 05:15 08/28/20 05:14 Heparin Sodium (Heparin) dose as per volume indica... ASDIRECTED PRN IV SEE LABEL COMMENTS 08/14/20 09:25 08/15/20 09:24 DC Heparin Sodium (Heparin) dose as per volume indica... ASDIRECTED PRN IV SEE LABEL COMMENTS 08/25/20 06:00 08/25/20 11:44 DC Heparin Sodium (Heparin) dose as per volume indica... ASDIRECTED PRN IV SEE LABEL COMMENTS 08/27/20 05:15 08/28/20 05:14 Heparin Sodium (Porcine) (Heparin) 5,000 units Q12H SC 08/13/20 21:00 08/13/20 16:18 DC Home Med (Med Rec Complete!) ASDIRECTED XX 08/13/20 16:00 08/13/20 16:00 DC Metoclopramide HCl (REGLAN INJection) 5 mg Q8HP PRN IV NAUSEA OR VOMITING 08/15/20 12:30 08/17/20 07:55 DC Midodrine (Proamatine) 5 mg BID PO 08/13/20 21:00 08/13/20 16:19 DC Midodrine (Proamatine) 5 mg TID@0600,1200,1800 PO 08/13/20 18:00 08/16/20 21:09 DC 08/16/20 17:17 Midodrine (Proamatine) 10 mg TID@0600,1200,1800 PO 08/17/20 06:00 08/21/20 09:04 DC 08/21/20 06:14 Midodrine (Proamatine) 10 mg TID@0800,1400,2000 PO 08/21/20 14:00 08/23/20 10:23 DC 08/23/20 08:37 Midodrine (Proamatine) 15 mg TID@0800,1200,1600 PO 08/23/20 18:46 08/27/20 14:06 Midodrine (Proamatine) 15 mg TID@0800,1400,2000 PO 08/23/20 08:00 08/23/20 10:40 DC Midodrine (Proamatine) 15 mg TID@0800,1400,2000 PO 08/23/20 14:00 08/23/20 18:46 DC 08/23/20 15:16 Ondansetron HCl (ZOFRAN INJection) 4 mg Q4HP PRN IV NAUSEA OR VOMITING 08/14/20 09:40 08/26/20 09:16 Oxycodone HCl (Roxicodone, Oxyir) 5 mg Q4H PRN PO PAIN 08/13/20 15:50 08/19/20 12:20 DC Pantoprazole Sodium (Protonix) 40 mg DAILY PO 08/14/20 09:00 08/27/20 06:36 Piperacillin Sod/ Tazobactam Sod 2.25 gm/Dextrose 50 ml @ 100 mls/hr Q8H IV 08/16/20 23:00 08/23/20 23:55 DC 08/23/20 23:53 Prochlorperazine (Compazine) 10 mg Q6HP PRN IV VOMITING 08/17/20 07:50 Senna/Docusate Sodium (Senokot S) 1 tab BID PO 08/16/20 09:00 08/21/20 09:03 DC 08/19/20 20:13 Senna/Docusate Sodium (Senokot S) 1 tab DAILY PO 08/21/20 09:00 08/23/20 11:09 DC Sodium Biphosphate/ Sodium Phosphate (Fleet Enema) 1 ea DAILYPRN PRN TX CONSTIPATION 08/13/20 16:00 08/16/20 06:57 DC Sodium Chloride 1,000 ml @ 100 mls/hr Q10H IV 08/13/20 12:35 08/13/20 16:18 DC 08/13/20 14:25 Sodium Chloride (Nacl 0.9%) 200 ml ASDIRECTED PRN IV SEE LABEL COMMENTS 08/14/20 09:25 08/15/20 09:24 DC Sodium Chloride (Saline Lock Flush) 10 ml ASDIRECTED PRN IV SEE LABEL COMMENTS 08/14/20 04:00 08/25/20 12:57 Sodium Chloride (Saline Lock Flush) 10 ml DAILY IV 08/14/20 09:00 08/27/20 10:49 Allergies Coded Allergies: No Known Allergies (Unverified , 07/27/18) VS,Fishbone, I+O VS, Fishbone, I+O Laboratory Tests 08/27/20 11:00 Vital Signs Date Time Temp Pulse Resp B/P (MAP) Pulse Ox O2 Delivery O2 Flow Rate FiO2 08/27/20 06:00 97.2 79 18 139/77 (97) 98 Room Air I&O- Last 24 Hours up to 6 AM 08/27/20 06:00 Intake Total 810 ml Balance 810 ml GME ATTESTATION GME ATTESTATION My faculty preceptor for this patient encounter was physically present during the encounter and was fully available. All aspects of the patient interview, examination, medical decision making process, and medical care plan development were reviewed and approved by the faculty preceptor. The faculty preceptor is aware and concurs with the plan as stated in the body of this note and will attest to such by his/her cosignature. LAURA GIRALDO MD Aug 27, 2020 16:11
[2020-08-27] MEDS: ACETAMINOPHEN TAB 650MG DOSE (2X325MG) PO PRN (17:28)
[2020-08-27 22:00] VITALS: BP 113/70
[2020-08-28 06:00] VITALS: BP 113/74
[2020-08-28] MEDS: APIXABAN 2.5 MG TAB (ELIQUIS) PO SCH ×2 (09:53→22:08)
[2020-08-28] MEDS: PANTOPRAZOLE 40MG TAB (PROTONIX) PO SCH (09:53)
[2020-08-28] MEDS: CHOLESTYRAMINE 4 GM PWD PKT PO SCH ×2 (09:53→22:08)
[2020-08-28] MEDS: MIDODRINE 5 MG TAB PO SCH ×3 (09:53→16:47)
[2020-08-28] MEDS: ASPIRIN 81MG ENTERIC TABLET PO SCH (09:53)
[2020-08-28] MEDS: SODIUM CHLORIDE 0.9% INJ 10 ML SYR IV SCH (09:53)
[2020-08-29 06:00] VITALS: BP 108/59
[2020-08-29] MEDS: CHOLESTYRAMINE 4 GM PWD PKT PO SCH ×2 (06:23→22:00)
[2020-08-29] MEDS: MIDODRINE 5 MG TAB PO SCH ×3 (06:24→17:31)
[2020-08-29] MEDS: PANTOPRAZOLE 40MG TAB (PROTONIX) PO SCH (06:24)
[2020-08-29] MEDS: APIXABAN 2.5 MG TAB (ELIQUIS) PO SCH ×2 (06:24→20:32)
[2020-08-29] MEDS: ASPIRIN 81MG ENTERIC TABLET PO SCH (06:24)
[2020-08-29] MEDS: ACETAMINOPHEN TAB 650MG DOSE (2X325MG) PO PRN (09:27)
[2020-08-29] MEDS: SODIUM CHLORIDE 0.9% INJ 10 ML SYR IV SCH (09:28)
--- NOTE | 2020-08-29 13:03 | IPNPDOC ---
Subjective Date Seen The patient was seen on 08/25/20. Subjective Chief Complaint/HPI No new complaints today. continues to have incontinent bowel movements. continues to have nausea, poor appetite. He is on COVID precautions due to exposure. Nephro will try to dialyze him. Objective Physical Examination General Exam: Positive: Alert, Cooperative, No Acute Distress Eye Exam: Positive: PERRLA ENT Exam: Positive: Atraumatic, Mucous membr. moist/pink Neck Exam: Positive: Supple; Negative: JVD Chest Exam: Positive: Rales (crackles at the base of the right lung), Diminished (. Diminished breath sounds at the base of the left lung); Negative: Rhonchi, Wheezing Heart Exam: Positive: Rate Normal, Regular Rhythm; Negative: Gallops, Murmurs, Rubs Telemetry: Positive: PVCs, Other Telemetry: (bigemini) Abdomen Exam: Positive: Normal bowel sounds, Soft; Negative: Tenderness Extremity Exam: Positive: Edema (2+); Negative: Clubbing, Cyanosis Neuro Exam: Positive: Cranial Nerves 3-12 NL Assessment /Plan Assessment Patient is a 75 years old male with past history of metastatic pancreatic cancer on supportive care, Whipple procedure in 2000, end-stage renal diseases on dialysis, recurrent small bowel obstruction, hypotension presented to the hospital with generalized weakness. Patient was discharged on 08/11/20 from acute rehabilitation but after reaching home he was too weak to get out of bed to stand or walk. He could not make to HD on 08/13/20 due to extreme weakness. He was also constipated for 4 days associated with nausea and vomiting. Patient was admitted for failure to thrive, small bowel ileus, debility with metastatic panc reatic CA. Left lower lobe atelectasis and pneumonia zosyn x7 days Acute on Chronic hypotension increased dose of Midodrine to 15 mg tid. BP drops severely after HD and becomes nauseous and confused. Am cortisol level Small bowel ileus/ stool incontinence patient has h/o recurrent small bowel obstruction for years which started after wipples procedure. last episode of SBO with contained perforation was in June 2020. Now has diarrhea and stool incontinence. stopped laxatives. He continues to have intermittent vomiting and dry heaving. Pancreatic adenocarcinoma with mets to the bilateral lung and chronic left hydropneumothorax. Has bilateral cavitary nodules in the lung from 2014, biopsied in 2014, 2016 and 2017 all with pancreatic adenoca. Pleural effusion appeared in Jan 2020. negative cytology in Apr 2020. He was initially diagnosed in 2000 & had Whipple and chemoradiation; in 2014 there was recurrence in the lungs. 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 After that went on chemo holiday. Ca-19-9 continued to rise but he did not want to restart chemo. In April 2020 developed left pleural effusion had thoracocentesis. Again declined resuming chemo in Apr; per recent note 05/30/20 the patient last completed active treatment in apr 2017 left pleural fluid cytology from this admission is negative. Chronic left hydropneumothorax. 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 will continue with pleurx cath draining every other day. ESRD due to chemotherapy has not been able to tolerate full HD due to becoming hypotensive. UTI uc with yeast fluconazole x 7 days qtc ok. Paroxysmal Atrial fibrillation Now in sinus with PVCs and bigeminis. on eliquis. Chronic anemia anemia of chronic disease Debility / Deconditioning/ failure to thrive unable to walk anymore. Was in ARU for 10 days from 08/01 to 08/12 however could not get out of the car when he reached home so was brought back to the hospital and readmitted on 08/13/20 BPH. does not make any urine. CODE: Patient is DNR/DNI. He does not want to be on a ventilator and does not want chest compressions and resuscitation. However Patient does not want to go into hospice. DME Needed: Hospital bed as patient is bed bound and needs frequent changes in body position. Patient frequently requires elevation of head to greater then 30 degrees due to lung issues. Plan/VTE VTE Prophylaxis Ordered?: Yes VS, I&O, 24H, Fishbone Vital Signs/I&O Vital Signs Date Time Temp Pulse Resp B/P (MAP) Pulse Ox O2 Delivery O2 Flow Rate FiO2 08/25/20 06:00 97.0 45 18 109/58 (75) 95 Room Air I&O- Last 24 Hours up to 6 AM 08/25/20 07:00 Intake Total 835 ml Output Total 0 ml Balance 835 ml Laboratory Data 24H LABS Laboratory Tests 2 08/25/20 05:18: Immature Granulocyte % (Auto) 1.2, Neutrophils (%) (Auto) 81.6H, Lymphocytes (%) (Auto) 7.9L, Monocytes (%) (Auto) 7.4, Eosinophils (%) (Auto) 1.6, Basophils (%) (Auto) 0.3, Neutrophils # (Auto) 7.1, Lymphocytes # (Auto) 0.7L, Monocytes # (Auto) 0.6, Eosinophils # (Auto) 0.1, Basophils # (Auto) 0.0, Nucleated Red Blood Cells % (auto) 0.0, Anion Gap 14, Glomerular Filtration Rate 8.7L, Calcium Level 7.8L, Phosphorus Level 3.9, Albumin 1.3L CBC/BMP Laboratory Tests 08/25/20 05:18 Microbiology Microbiology 08/15/20 Urine Culture - Final, Complete Yeast Like Organism HUSSEIN FRANCO MD Aug 25, 2020 16:38
--- NOTE | 2020-08-29 13:03 | IPNPDOC ---
Text Note Date of Service The patient was seen on 08/29/20. NOTE Had family meeting with and daughter along with Dr Skelton and PFS and RN present on 08/26/20. Explained in detail that at this point patient is sick but stable with his chronic medical issues which unfortunately cannot be cured or fixed. Explained that he has the pancreatic cancer in the lungs from 2015 which is still there which unfortunately neither Patient nor family think this is an issue. Explained that his Bps are often low then he cannot get HD and in HD fluid cannot be removed as that drops his blood pressure and makes him sicker so he gets back the fluid again. So this is an ongoing cycle and will continue. Dr Skelton will continue to try and dialyze him as long as his Bp permits either here or in the outpatient HD unit. We discussed Hospice however patient wants to continue HD. He at this point is not able to work with PT and I explained that he would not get any stronger so will not benefit from rehab. He needs total care with his ADLs except he still can feed himself. We explained that he would need a LTC bed with HD set up. Discussed with PFS about discharge plans: Family wishes to take him home with 24 x 7 care to be provided by family. Patient's daughter will be coming to town on Tuesday. VS,Fishbone, I+O VS, Fishbone, I+O Vital Signs Date Time Temp Pulse Resp B/P (MAP) Pulse Ox O2 Delivery O2 Flow Rate FiO2 08/29/20 06:00 97.8 53 18 108/59 (75) 95 Room Air I&O- Last 24 Hours up to 6 AM 08/29/20 06:00 Intake Total 1130 ml Balance 1130 ml HUSSEIN FRANCO MD Aug 29, 2020 13:03
--- NOTE | 2020-08-29 13:10 | IPN ---
PROGRESS NOTE DATE: 08/29/2020 SUBJECTIVE: Patient was seen and examined at the bedside today morning. Today is patient's regular day of dialysis. He reports he has mild persistent diarrhea, but it is better with the cholestyramine now. He denies any other active complaints at this time. OBJECTIVE: Vital signs: Temperature is 97.8 degrees Fahrenheit, blood pressure 108/59, pulse is 53, respiratory rate of 18, saturating 95% on room air. Intake and output: Urine output is not recorded. He has incontinent voids. Weight in the bed scale is 84 kg. PHYSICAL EXAMINATION: GENERAL: Patient is awake, alert, oriented times three, lying in bed, weak and cachectic, chronically malnourished. Bitemporal wasting. NECK: Supple. No jugular venous distention (JVD). He has a tunneled hemodialysis catheter. CARDIOVASCULAR: S1, S2, regular rate. Edema 2+ of the bilateral ankles. RESPIRATORY: Mildly decreased breath sounds at the bases. He has a left-sided PleurX catheter. ABDOMEN: Soft. Positive bowel sounds. Nontender. No organomegaly. MUSCULOSKELETAL: No clubbing or cyanosis. Edema 2+ of the ankles as noted above. CENTRAL NERVOUS SYSTEM: No focal deficit. Power is 5/5 in all extremities. LABORATORY REVIEW: CBC showed a WBC of 8.9, hemoglobin 10.4, and that is from August 27. BMP done on July shows a potassium of 3.6, creatinine of 5.4. CURRENT INPATIENT MEDICATIONS: Patient's medications were all reviewed by myself. There is no significant change in the medications today as compared with yesterday. ASSESSMENT AND PLAN: 1. End-stage renal disease. Patient will be dialyzed today as per his regular schedule because of his soft pressures. No fluid is removed during dialysis. 2. Hypotension. Blood pressure is controlled with current dose of midodrine 15 mg by mouth three times a day. 3. History of cancer (CA) of pancreas and chronic diarrhea. Continue current dose of cholestyramine 2 grams by mouth twice a day. 4. Left recurrent malignant pleural effusion secondary to metastatic adenocarcinoma. Patient gets drainage through the PleurX catheter every 48 hours. 5. Anemia and end-stage renal disease. Hemoglobin level is 10.4, which is optimal. If it drops to below 10, patient will be started on erythropoiesis-stimulating agent (LUDIN).
[2020-08-29 14:00] VITALS: BP 112/60
[2020-08-30 06:00] VITALS: BP 159/64
[2020-08-30] MEDS: MIDODRINE 5 MG TAB PO SCH ×3 (08:58→16:00)
[2020-08-30] MEDS: PANTOPRAZOLE 40MG TAB (PROTONIX) PO SCH (08:59)
[2020-08-30] MEDS: APIXABAN 2.5 MG TAB (ELIQUIS) PO SCH ×2 (08:59→21:03)
[2020-08-30] MEDS: ASPIRIN 81MG ENTERIC TABLET PO SCH (08:59)
[2020-08-30] MEDS: SODIUM CHLORIDE 0.9% INJ 10 ML SYR IV SCH (08:59)
[2020-08-30] MEDS: CHOLESTYRAMINE 4 GM PWD PKT PO SCH ×2 (09:00→22:00)
[2020-08-30] MEDS: ONDANSETRON 4MG/2ML VIAL IV PRN (12:53)
[2020-08-31 06:00] VITALS: BP 111/59
[2020-08-31] MEDS: PANTOPRAZOLE 40MG TAB (PROTONIX) PO SCH (09:17)
[2020-08-31] MEDS: APIXABAN 2.5 MG TAB (ELIQUIS) PO SCH ×2 (09:17→20:00)
[2020-08-31] MEDS: MIDODRINE 5 MG TAB PO SCH ×3 (09:17→16:00)
[2020-08-31] MEDS: ASPIRIN 81MG ENTERIC TABLET PO SCH (09:17)
[2020-08-31] MEDS: CHOLESTYRAMINE 4 GM PWD PKT PO SCH ×2 (09:18→21:00)
[2020-08-31] MEDS: SODIUM CHLORIDE 0.9% INJ 10 ML SYR IV SCH (09:19)
[2020-08-31] MEDS: ONDANSETRON 4MG/2ML VIAL IV PRN (12:35)
[2020-08-31 14:00] VITALS: BP 110/58
[2020-09-01] MEDS: MIDODRINE 5 MG TAB PO SCH ×3 (05:19→17:53)
[2020-09-01] MEDS: PANTOPRAZOLE 40MG TAB (PROTONIX) PO SCH (05:19)
[2020-09-01] MEDS: APIXABAN 2.5 MG TAB (ELIQUIS) PO SCH ×2 (05:20→21:51)
[2020-09-01] MEDS: ASPIRIN 81MG ENTERIC TABLET PO SCH (05:20)
[2020-09-01] MEDS: ACETAMINOPHEN TAB 650MG DOSE (2X325MG) PO PRN (05:21)
[2020-09-01] MEDS: SODIUM CHLORIDE 0.9% INJ 10 ML SYR IV SCH (05:23)
[2020-09-01] MEDS: CHOLESTYRAMINE 4 GM PWD PKT PO SCH ×2 (05:24→21:51)
[2020-09-01 05:52] LABS: BASO # 0.1 10^3/uL (0.0-0.2); BASO % 0.8 % (0.0-1.0); EOS # 0.1 10^3/uL (0.0-0.5); EOS % 1.8 % (0.0-3.0); HEMATOCRIT 33.8 % (42.0-52.0); HEMOGLOBIN 10.7 g/dl (13.5-17.5); LYMPH # 0.6 10^3/uL (1.5-5.0); LYMPH % 7.4 % (24.0-44.0); MEAN CORPUSCULAR HEMOGLOBIN 28.9 pg (27.0-33.0); MEAN CORPUSCULAR HGB CONC 31.7 g/dl (32.0-36.5); MEAN CORPUSCULAR VOLUME 91.4 fl (80.0-96.0); MONO # 0.5 10^3/uL (0.0-0.8); MONO % 5.8 % (2.0-8.0); NEUTROPHILS # 6.4 10^3/uL (1.5-8.5); NEUTROPHILS % 83.7 % (36.0-66.0); PLATELET COUNT, AUTOMATED 206 10^3/uL (150-450); WHITE BLOOD COUNT 7.7 10^3/uL (4.0-10.0)
[2020-09-01 06:00] VITALS: BP 97/61
[2020-09-01 06:16] LABS: ALBUMIN 1.3 GM/DL (3.2-5.2); CREATININE FOR GFR 5.03 MG/DL (0.70-1.30); POTASSIUM SERUM 3.3 MEQ/L (3.5-5.1)
--- NOTE | 2020-09-01 11:58 | IPNPDOC ---
Text Note Date of Service The patient was seen on 09/01/20. NOTE Subjective: Patient is a 75-year-old male with a PMHx of Metastatic pancreatic CA (on supportive care), Whipple procedure (2000), ESRD on HD (MWF), Recurrent SBO, Hypotension (on Midodrine), who presented to the emergency room with complaints of generalized weakness. Patient was recently discharged from acute rehabilitation on 08/11/20, and after reaching home was reporting weakness and inability to get out of bed, stand or walk. Patient was unable to make dialysis on 08/13 because of extreme weakness. Patient was admitted to the hospital service for further evaluation and treatment. Patient was seen and examined at the bedside. Patient was seen laying in bed, appears to be comfortable, not in any acute distress. Denied any chest pain, shortness of breath, palpitations. Has not experience any nausea, vomiting, abdominal pain, does report a few episodes of diarrhea Objective: Vitals (See below) General: Lying in bed, no acute distress, comfortable, AAOx3 HEENT: NC, AT CVS: +S1S2 Lungs: Fair air entry b/l, no appreciable wheezing, rhonchi, rales Abdomen: Soft, ND, NT Extremities: Bilateral ankle edema, - Calf tenderness Imaging: CT abdomen / pelvis 08/13: There has been no significant change compared to the prior exam with findings as described above. A small bowel ileus is suspected status quo. Abdomen XR 08/15: Findings consistent with mild ileus. Postoperative changes in the upper abdomen. CXR 08/16: 1. There is a left-sided hydropneumothorax with an increase in the amount of fluid. Left-sided chest tube noted. 2. Since the examination of June there is increasing consolidation of lung at the left parahilar region and left lung base consistent with atelectasis and pneumonia. 3. Large gauge left-sided central line has its tip in the midline an unusual position. Assessment and plan: Left lower lobe atelectasis and pneumonia - Patient denies any shortness of breath or cough - Saturating well on room air - Imaging noted above - s/p Zosyn x7 days Acute on Chronic hypotension - Patient reports symptoms of nausea and lightheadedness after dialysis - c/w Midodrine at adjusted dose Small bowel ileus/ stool incontinence - History of recurrent small bowel obstruction for years which started after wipples procedure. - Last episode of SBO with contained perforation was in June 2020. - s/p Laxative - Reports some diarrhea - c/w Cholestyramine Pancreatic adenocarcinoma with mets to the bilateral lung and chronic left hydropneumothorax - Has bilateral cavitary nodules in the lung from 2014, biopsied in 2014, 2016 and 2017 all with pancreatic adenoca. - Pleural effusion appeared in Jan 2020; Negative cytology in Apr 2020. - He was initially DX in 2000 & had Whipple and chemoradiation; in 2014 there was recurrence in the lungs. 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 After that went on chemo holiday. Ca-19-9 continued to rise but he did not want to restart chemo. - In April 2020 developed left pleural effusion had thoracocentesis. Again declined resuming chemo in Apr; per recent note 05/30/20 the patient last completed active treatment in apr 2017 - Left pleural fluid cytology / pathology from this admission is negative. Chronic left hydropneumothorax. 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 - c/w pleurx cath draining every other day. ESRD - 2/2 chemotherapy - Patient has had difficulty with hemodialysis given his ongoing hypotension - Nephrology on consultation UTI - Urine culture 08/15: Yeastlike organisms - s/p Fluconazole x 7 days Paroxysmal Atrial fibrillation - Patient is currently not on any rate and rhythm control medications - Continue full into regulation with Eliquis Chronic anemia - likely 2/2 anemia of chronic disease - Hemoglobin has remained stable - No evidence of bleeding Debility / Deconditioning/ failure to thrive - Patient has the inability to walk - Was in ARU for 10 days from 08/01-08/12; however could not get out of the car when he reached home so was brought back to the hospital and readmitted on 08/13/20 - c/w PT / OT; recommending 24/7 care BPH - Currently does not make any urine GERD - c/w Protonix DVT prophylaxis - c/w full anticoagulation with Eliquis Code status: - Patient is DNR/DNI - Patient does not want hospice DME Needed: 1. The beneficiary has a medical condition which requires positioning of the bodily in ways not feasible with an ordinary bed. Elevation of the head/upper body less than 30 degrees, does not usually require the use of a hospital bed, or 2. The beneficiary requires positioning of the body in ways not feasible within normal urinary bed in order to alleviate pain, or 3. Beneficiary requires the head of bed to be elevated more than 30 degrees and most of the time due to congestive heart failure, chronic pulmonary disease, or problems with aspiration, or 4. The beneficiary requires traction equipment, which can only be attached to a hospital bed. AND The beneficiary requires frequent changes in body position and/or has any immediate need for a change in body position Disposition: - Anticipate discharge home with services tomorrow with 22/11 care VS,Rick, I+O VS, Rick, I+O Laboratory Tests 09/01/20 05:34 Vital Signs Date Time Temp Pulse Resp B/P (MAP) Pulse Ox O2 Delivery O2 Flow Rate FiO2 09/01/20 06:00 97.5 40 17 97/61 (73) 96 Room Air I&O- Last 24 Hours up to 6 AM 09/01/20 06:00 Intake Total 120 ml Output Total 100 ml Balance 20 ml LONNIE FRANK MD September 01, 2020 11:58
--- NOTE | 2020-09-01 14:01 | IPN ---
INPATIENT PROGRESS NOTE DATE: 09/01/2020 SUBJECTIVE: Patient was seen and examined this morning on the Hemodialysis Unit receiving his treatment and he offers no complaints, appears depressed and is not very conversation, but denies any shortness of breath or vomiting, reports ongoing poor oral intake. PHYSICAL EXAMINATION: Vital signs: Temperature 97.5, pulse 40s-50s, respiratory rate 17, blood pressure 97/61, saturating 96% on room air. Intake yesterday was only recorded as 120 mL. There were 4 incontinent bowel movements recorded yesterday. Weight on the bed scale today is not recorded. The PleurX catheter yesterday drained 100 mL. General: Patient is seen lying in bed in the Hemodialysis Unit receiving his treatment, awake, alert and in no distress. HEENT: Poor eye contact, bitemporal wasting, tongue is moist. Neck: Supple. A tunneled hemodialysis catheter is in use. There is no jugular venous distention. Heart: Sounds are regular. There is no dependent edema or any significant peripheral edema. Lungs: Symmetric air entry and there is a left sided PleurX catheter. Extremities: Ankle edema otherwise no other edema and there is significant muscle wasting and cachexia and patient is malnourished appearing. Neurologic: He is awake, alert and oriented to person, place and situation and appears to be at his baseline exam. Psychiatric: Appears depressed. LABORATORY DATA: White count 7.7, hemoglobin 10.7, platelets 206. Sodium 138, potassium 3.3, bicarbonate 20, BUN 26, creatinine 5. Albumin 1.3. INPATIENT MEDICATIONS: Reviewed by myself and no changes noted as compared to yesterday. PROBLEMS/PLAN: 1. End-stage renal disease: On hemodialysis on a Tuesday, Tuesday, Tuesday schedule. Patient is being dialyzed today and as usual we are dialyzing him for clearance only without any significant fluid removal at all. Patient has chronic hypotension of hemodialysis and continues on a high dose of midodrine. He is having ongoing weight loss, failure to thrive, hypoalbuminemia and his dialysis treatments are written to be quite gentle. 2. Chronic hypotension with hypotension of hemodialysis: Continue current dose of midodrine. 3. Anemia related to end-stage renal failure: Patient's hemoglobin is optimal at 10.7 and he is not presently written for Aranesp. 4. Chronic left hydropneumothorax: Patient continues with PleurX catheter being drained every other day and I note he has had around 100-350 m drained every other day. He also received Zosyn for 1 week for a concern of recent left lower lobe atelectasis/pneumonia. 5. Pancreatic adenocarcinoma with metastasis to the bilateral lung: Patient has had ongoing picture of worsening deconditioning and failure to thrive. His albumin is down to 1.3 on the latest labs. He is having ongoing weight loss and he is a DNR, DNI, but wants to continue with medical care and opts against Hospice. It is getting more and more difficult to dialyze him because of his chronic hypotension.
[2020-09-01] MEDS: ONDANSETRON 4MG/2ML VIAL IV PRN (17:56)
[2020-09-01] MEDS: SODIUM CHLORIDE 0.9% INJ 10 ML SYR IV PRN (17:56)
[2020-09-02 06:00] VITALS: BP 109/58
[2020-09-02] MEDS: CHOLESTYRAMINE 4 GM PWD PKT PO SCH ×2 (08:12→20:33)
[2020-09-02] MEDS: PANTOPRAZOLE 40MG TAB (PROTONIX) PO SCH (08:12)
[2020-09-02] MEDS: APIXABAN 2.5 MG TAB (ELIQUIS) PO SCH ×2 (08:12→20:33)
[2020-09-02] MEDS: MIDODRINE 5 MG TAB PO SCH ×3 (08:12→15:08)
[2020-09-02] MEDS: ASPIRIN 81MG ENTERIC TABLET PO SCH (08:12)
[2020-09-02] MEDS: SODIUM CHLORIDE 0.9% INJ 10 ML SYR IV SCH (08:13)
[2020-09-02] MEDS: ONDANSETRON 4MG/2ML VIAL IV PRN (15:08)
[2020-09-03 06:00] VITALS: BP 99/58
[2020-09-03] MEDS: MIDODRINE 5 MG TAB PO SCH ×3 (07:21→16:56)
[2020-09-03] MEDS: APIXABAN 2.5 MG TAB (ELIQUIS) PO SCH ×2 (07:22→21:16)
[2020-09-03] MEDS: ASPIRIN 81MG ENTERIC TABLET PO SCH (07:22)
[2020-09-03] MEDS: CHOLESTYRAMINE 4 GM PWD PKT PO SCH ×2 (07:22→21:00)
[2020-09-03] MEDS: PANTOPRAZOLE 40MG TAB (PROTONIX) PO SCH (07:22)
[2020-09-03] MEDS ORDERED: SODIUM CHLORIDE 0.9% 1000ML IV PRN (10:15)
[2020-09-03] MEDS: SODIUM CHLORIDE 0.9% INJ 10 ML SYR IV SCH (12:26)
--- NOTE | 2020-09-03 18:37 | IPN ---
PROGRESS NOTE DATE: 09/03/2020 SUBJECTIVE: Mr. Acosta is seen and examined this morning in the hemodialysis unit receiving his treatment. He denies any complaints. His dialysis has been uneventful. He remains chronically debilitated and has ongoing picture of failure to thrive. There are plans for a family meeting tomorrow to further discuss discharge planning. His PleurX was drained yesterday. It put out 500 mL. Dialysis fluid removal today is 500 mL. Weight in the bed scale 71.6 kg. Temperature 97.7, pulse 50, respiratory rate 18, blood pressure 99/58, saturating 95% on room air. General: Patient is seen receiving his dialysis treatment, awake, alert, oriented, comfortable in no apparent distress. Appears chronically ill, malnourished, and cachectic. There is bitemporal wasting. Tongue is moist. There is a tunneled hemodialysis catheter in use. There is no jugular venous distention. He has a PleurX catheter in the left back. He has a hemodialysis catheter in the left subclavian. There is an [id number] on the right chest. Heart sounds are bradycardic. There is no dependent edema. There is 2+ ankle edema. Lungs show symmetric air entry. There are no crackles or rales. He is comfortable on room air. Abdomen is soft and nontender. Extremities show muscle wasting and cachexia and ankle edema. Neurologic: He is awake, alert, oriented, and appears to be at his baseline mentation. Laboratory studies show CA19-9 antigen 1749, albumin 1.3. There is no chemistry form today. Yesterday's chemistry is reviewed. Inpatient medications show no change person the past 24 hours. PROBLEMS: 1. End-stage renal disease, on hemodialysis. Patient is dialyzed mostly for clearance with minimal fluid removal. There was 500 mL removed today. He has chronic hypotension of hemodialysis and continues on high dose of midodrine in order to receive his dialysis treatments. He is having ongoing weight loss and failure to thrive and hypoalbuminemia, and his dialysis treatments are gentle. 2. Chronic hypotension with hypotension of hemodialysis as well. Continue current dose of midodrine. Minimal fluid removal with dialysis treatment. 3. Anemia related to end-stage renal failure. Patient's hemoglobin is at goal. He is not presently receiving Aranesp. Labs are checked intermittently. 4. chronic left hydropneumothorax. His PleurX catheter is drained every other day. Yesterday 500 mL was drained. He also recently received Zosyn for 1 week for concern of left lower lobe pneumonia verus atelectasis. 5. Pancreatic adenocarcinoma with metastasis to lung. Patient has ongoing picture of worsening deconditioning, failure to thrive, debility. Albumin is down to 1.3 on the latest labs. He is having ongoing weight loss. He does not want to go on hospice and wishes to continue with medical care. It is getting more difficult to dialyze him, especially in view of his hypotension. He is receiving midodrine 15 mg by mouth three times a day. His overall prognosis is very poor.
[2020-09-04 06:00] VITALS: BP 100/58
[2020-09-04] MEDS: APIXABAN 2.5 MG TAB (ELIQUIS) PO SCH ×2 (09:00→20:44)
[2020-09-04] MEDS: ASPIRIN 81MG ENTERIC TABLET PO SCH (09:00)
[2020-09-04] MEDS: CHOLESTYRAMINE 4 GM PWD PKT PO SCH ×2 (09:00→20:44)
[2020-09-04] MEDS: SODIUM CHLORIDE 0.9% INJ 10 ML SYR IV SCH (09:01)
[2020-09-04] MEDS: MIDODRINE 5 MG TAB PO SCH ×3 (09:03→17:28)
[2020-09-04] MEDS: PANTOPRAZOLE 40MG TAB (PROTONIX) PO SCH (09:03)
[2020-09-05 06:00] VITALS: BP 96/52
[2020-09-05] MEDS: MIDODRINE 5 MG TAB PO SCH ×3 (06:05→16:00)
[2020-09-05] MEDS: APIXABAN 2.5 MG TAB (ELIQUIS) PO SCH ×2 (06:05→20:11)
[2020-09-05] MEDS: ONDANSETRON 4 MG ORAL DISINTEGRATING TAB SL PRN (06:06)
[2020-09-05] MEDS: ASPIRIN 81MG ENTERIC TABLET PO SCH (06:06)
[2020-09-05] MEDS: PANTOPRAZOLE 40MG TAB (PROTONIX) PO SCH (06:06)
[2020-09-05] MEDS: CHOLESTYRAMINE 4 GM PWD PKT PO SCH ×2 (06:07→20:12)
[2020-09-05] MEDS: SODIUM CHLORIDE 0.9% INJ 10 ML SYR IV SCH (06:07)
[2020-09-05] MEDS ORDERED: SODIUM CHLORIDE 0.9% 1000ML IV PRN (10:35)
--- NOTE | 2020-09-05 12:58 | IPN ---
PROGRESS NOTE DATE: 09/05/2020 SUBJECTIVE: Patient is seen and examined this morning at the bedside in the hemodialysis unit receiving his treatment. He reports ongoing poor appetite, but otherwise denies any issues. No shortness of breath at rest. There was a large meeting yesterday with the patient's patient care representative, patient and family services, discharge team, hospitalist and myself to discuss his discharge plan. PHYSICAL EXAMINATION: VITAL SIGNS: Temperature 97.8, pulse 44, respiratory rate 16, blood pressure 96/52, saturating 94% on room air. INTAKE/OUTPUT: Intake yesterday was 560. Dialysis today removed 500. Weight in the bed scale today is not recorded. GENERAL: Patient is seen receiving his dialysis treatment, drowsy but easily arousable, in no distress, oriented to person, place and situation. HEENT: Extraocular muscles are intact. Tongue is dry. Neck is supple. Jugular veins are not elevated. He appears chronically ill, malnourished and cachectic. There is prominent bitemporal wasting. There is a tunneled hemodialysis catheter in use in left subclavian. There is a PleurX catheter in the left back. There is an Infusaport in the right chest. HEART: Sounds are bradycardic. There is no dependent edema. There is 2+ ankle edema. LUNGS: Symmetric air entry. There is no crackle or rale. He is comfortable on room air. ABDOMEN: Soft and nontender. EXTREMITIES: Show prominent muscle wasting and cachexia and ankle edema. NEUROLOGIC: He is at his baseline mentation. LABORATORY STUDIES: Labs from September 01 show white count 7.7, hemoglobin 10.7, platelets 206,000. There are no labs drawn today. His most recent chemistry is reviewed and is acceptable, showing a low potassium of 3.3. INPATIENT MEDICATIONS: Reviewed by myself and no changes noted as compared to yesterday. PROBLEMS: 1. End-stage renal disease on hemodialysis on a Tuesday, Tuesday, Tuesday schedule: Patient is dialyzed today mostly for clearance with minimal fluid removal. He has chronic hypotension of hemodialysis and continues on high dose Midodrine in order to tolerate his dialysis treatments. He is having ongoing weight loss, failure to thrive, hypoalbuminemia and his dialysis treatments are written to be very gentle. 2. Chronic hypotension with hypotension of hemodialysis as well: Continue current dose of Midodrine. He has minimal fluid removal with his dialysis treatment and his oral intake remains poor. 3. Anemia related to end-stage renal disease: Hemoglobin is at goal and is intermittently checked. He is not presently receiving Aranesp. 4. Chronic left hydropneumothorax: He has a PleurX catheter which is drained every other day, on average around 400 to 500 cc is drained. 5. Pancreatic adenocarcinoma with metastasis: Patient has ongoing picture of worsening deconditioning, failure to thrive, debility, protein calorie malnutrition and ongoing weight loss. He does not want to go on hospice. He wishes to continue with medical care. It is getting more difficult to dialyze him in view of hypotension. He is on Midodrine 15 mg p.o. three times a day. His outpatient hemodialysis has been arranged with [facility] to get him into the dialysis chair. His CA19-9 antigen is noted to be markedly elevated. 6. Hypokalemia: He is dialyzed with a high potassium bath. He is not on a renal diet. His only diet restriction is mechanical soft. I will get a repeat chemistry given that he is also bradycardic. 7. Bradycardia: We will repeat his electrolytes given hypokalemia on labs. He is being dialyzed with a higher potassium bath (3.0 mEq).
[2020-09-05] MEDS: ACETAMINOPHEN TAB 650MG DOSE (2X325MG) PO PRN (20:12)
[2020-09-06] MEDS: SODIUM CHLORIDE 0.9% INJ 10 ML SYR IV PRN (05:55)
[2020-09-06 06:00] VITALS: BP 98/56
[2020-09-06 07:58] LABS: CALCIUM LEVEL 7.3 MG/DL (8.8-10.2); CREATININE FOR GFR 3.61 MG/DL (0.70-1.30); GLOMERULAR FILTRATION RATE 17.5 (>42); POTASSIUM SERUM 3.8 MEQ/L (3.5-5.1)
[2020-09-06] MEDS: MIDODRINE 5 MG TAB PO SCH ×3 (08:20→16:03)
[2020-09-06] MEDS: APIXABAN 2.5 MG TAB (ELIQUIS) PO SCH ×2 (08:20→20:08)
[2020-09-06] MEDS: CHOLESTYRAMINE 4 GM PWD PKT PO SCH ×2 (08:20→20:08)
[2020-09-06] MEDS: PANTOPRAZOLE 40MG TAB (PROTONIX) PO SCH (08:20)
[2020-09-06] MEDS: ASPIRIN 81MG ENTERIC TABLET PO SCH (08:20)
[2020-09-06] MEDS: SODIUM CHLORIDE 0.9% INJ 10 ML SYR IV SCH (08:20)
[2020-09-06] MEDS: ONDANSETRON 4 MG ORAL DISINTEGRATING TAB SL PRN (08:28)
[2020-09-07 06:00] VITALS: BP 108/60
[2020-09-07] MEDS: ASPIRIN 81MG ENTERIC TABLET PO SCH (08:22)
[2020-09-07] MEDS: PANTOPRAZOLE 40MG TAB (PROTONIX) PO SCH (08:22)
[2020-09-07] MEDS: MIDODRINE 5 MG TAB PO SCH ×3 (08:22→16:33)
[2020-09-07] MEDS: APIXABAN 2.5 MG TAB (ELIQUIS) PO SCH ×2 (08:22→21:04)
[2020-09-07] MEDS: SODIUM CHLORIDE 0.9% INJ 10 ML SYR IV SCH (08:23)
[2020-09-07] MEDS: CHOLESTYRAMINE 4 GM PWD PKT PO SCH ×2 (08:23→20:40)
[2020-09-07] MEDS: FIBER-CON 625 MG TAB PO SCH ×2 (09:37→21:04)
--- NOTE | 2020-09-07 09:47 | IPNPDOC ---
Text Note Date of Service The patient was seen on 09/07/20. NOTE Subjective: Patient is a 75-year-old male with a PMHx of Metastatic pancreatic CA (on supportive care), Whipple procedure (2000), ESRD on HD (MWF), Recurrent SBO, Hypotension (on Midodrine), who presented to the emergency room with complaints of generalized weakness. Patient was recently discharged from acute rehabilitation on 08/11/20, and after reaching home was reporting weakness and inability to get out of bed, stand or walk. Patient was unable to make dialysis on 08/13 because of extreme weakness. Patient was admitted to the hospitalist service for further evaluation and treatment. Patient was seen and examined at the bedside. Patient is seen laying in bed, appeared relatively comfortable, not in any acute distress. Denied any current nausea or vomiting. Denies any chest pain, shortness of breath or abdominal pain, did report some diarrhea. Reports very minimal urine production. Objective: Vitals (See below) General: Patient is laying in bed, appears comfortable, not in any acute distress, oriented to person, place, time HEENT: NC, AT CVS: +S1S2 Lungs: There is fair air entry bilaterally without any significant wheezing, rhonchi or crackles; L PleurX catheter Abdomen: Soft, nondistended and nontender Extremities: Bilateral lower extremities reveal 1-2+ pitting edema of feet and ankles Imaging: CT abdomen / pelvis 08/13: There has been no significant change compared to the prior exam with findings as described above. A small bowel ileus is suspected status quo. Abdomen XR 08/15: Findings consistent with mild ileus. Postoperative changes in the upper abdomen. CXR 08/16: 1. There is a left-sided hydropneumothorax with an increase in the amount of fluid. Left-sided chest tube noted. 2. Since the examination of June there is increasing consolidation of lung at the left parahilar region and left lung base consistent with atelectasis and pneumonia. 3. Large gauge left-sided central line has its tip in the midline an unusual position. Assessment and plan: s/p Left lower lobe atelectasis and pneumonia - Patient denies any shortness of breath or cough - Saturating well on room air - Imaging noted above - s/p Zosyn x7 days Acute on Chronic hypotension - Patient reports symptoms of nausea and lightheadedness after dialysis - c/w Midodrine at maximum dose; she was advised to continue with the use of midodrine to ensure dialysis can continue Small bowel ileus/ stool incontinence - History of recurrent small bowel obstruction for years which started after wipples procedure. - Last episode of SBO with contained perforation was in June 2020. - s/p Laxative - Reports some diarrhea - c/w Cholestyramine; Added fiber supplementation Pancreatic adenocarcinoma with mets to the bilateral lung and chronic left hydropneumothorax - Has bilateral cavitary nodules in the lung from 2014, biopsied in 2014, 2016 and 2017 all with pancreatic adenoca. - Pleural effusion appeared in Jan 2020; Negative cytology in Apr 2020. - He was initially DX in 2000 & had Whipple and chemoradiation; in 2014 there was recurrence in the lungs. 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 After that went on chemo holiday. Ca-19-9 continued to rise but he did not want to restart chemo. - In April 2020 developed left pleural effusion had thoracocentesis. Again declined resuming chemo in Apr; per recent note 05/30/20 the patient last completed active treatment in apr 2017 - Left pleural fluid cytology / pathology from this admission is negative. - Repeated CA-19-9 levels that have been downtrending - Discussed case with oncology, Dr. Ghotra. Patient's malignancy is likely indolent; however given his functional status may not be a candidate for anything further Chronic left hydropneumothorax. 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 - c/w PleurX cath draining every other day. ESRD - 2/2 chemotherapy - Patient has had difficulty with hemodialysis given his ongoing hypotension - Nephrology on consultation UTI - Urine culture 08/15: Yeastlike organisms - s/p Fluconazole x 7 days Paroxysmal Atrial fibrillation - Patient is currently not on any rate and rhythm control medications - c/w Eliquis Chronic anemia - likely 2/2 anemia of chronic disease - Hemoglobin has remained stable - No evidence of bleeding Debility / Deconditioning/ failure to thrive - Patient has the inability to walk - Was in ARU for 10 days from 08/01-08/12; however could not get out of the car when he reached home so was brought back to the hospital and readmitted on 08/13/20 - c/w PT / OT; recommending 24/ care BPH - Currently makes very little urine GERD - c/w Protonix DVT prophylaxis - c/w full anticoagulation with Eliquis Code status: - Patient is DNR/DNI - Patient does not want hospice; however, this is recommended several times throughout this hospitalization DME Needed: 1. The beneficiary has a medical condition which requires positioning of the bodily in ways not feasible with an ordinary bed. Elevation of the head/upper b ignacia less than 30 degrees, does not usually require the use of a hospital bed, or 2. The beneficiary requires positioning of the body in ways not feasible within normal urinary bed in order to alleviate pain, or 3. Beneficiary requires the head of bed to be elevated more than 30 degrees and most of the time due to congestive heart failure, chronic pulmonary disease, or problems with aspiration, or 4. The beneficiary requires traction equipment, which can only be attached to a hospital bed. AND The beneficiary requires frequent changes in body position and/or has any immediate need for a change in body position Disposition: - Anticipate discharge home with services 22/11 care VS,Rick, I+O VS, Rick, I+O Vital Signs Date Time Temp Pulse Resp B/P (MAP) Pulse Ox O2 Delivery O2 Flow Rate FiO2 09/07/20 06:00 97.8 54 16 108/60 (76) 96 Room Air I&O- Last 24 Hours up to 6 AM 09/07/20 06:00 Intake Total 780 ml Output Total 300 ml Balance 480 ml LONNIE FRANK MD September 07, 2020 09:47
--- NOTE | 2020-09-07 19:05 | IPN ---
NEPHROLOGY PROGRESS NOTE DATE: 09/06/2020 SUBJECTIVE: Mr. Acosta is seen this morning on his bedside. He remains very weak and mostly in the bed. He was dialyzed yesterday and we were unable to remove any fluid due to persistent hypotension. In the meantime, patient has very poor oral intake and he is nutritionally quite malnourished with serum albumin level only 1.3 last week. He has known history of metastatic pancreatic cancer, for which he is currently not receiving any chemotherapy. PHYSICAL EXAMINATION: Temperature 97.4 degrees Fahrenheit, heart rate 48 per minute, respiratory rate 18 per minute, blood pressure this morning 98/56 mmHg, oxygen saturation 95% on room air. HEAD: He is emaciated with loss of facial fat pad. NECK: Supple and there is no jugular venous distention (JVD) or thyroid enlargement. Dialysis catheter is present in left upper chest, shoulder area. HEART SOUNDS: Regular. LUNGS: Diminished breath sounds in the left base ABDOMEN: Soft and nontender. Bowel sounds are present. EXTREMITIES: Without any cyanosis or clubbing. NEUROLOGIC: He is at his baseline mentation LABORATORY STUDIES: Today's labs show sodium 139, potassium 3.8, CO2 22, BUN 14, creatinine 3.61, calcium 7.3. His albumin was 1.3 on September 01, 2020. Hemoglobin was 10.7 and hematocrit 33.8. PROBLEMS: 1. End-stage renal disease. Patient has been dialysis dependent. He does not wish to stop dialysis even though it is quite difficult to dialyze him due to recurrent hypotension. We will continue our efforts to maintain his blood pressure during dialysis with high dose midodrine 15 mg prior to each dialysis and three times a day. We are also not removing any fluid with dialysis. 2. Anemia. His anemia has been stable and we will check his CBC next week. He remains on no medication at this time. 3. Persistent hypotension. Chronic issue. He is doing slightly better with high dose midodrine 15 mg three times a day. 4. Protein calorie malnutrition. Patient is very malnourished with serum albumin only 1.3. I have encouraged him to increase his protein intake. DISPOSITION: Patient is likely ready for discharge next week.
--- NOTE | 2020-09-07 19:06 | IPN ---
NEPHROLOGY PROGRESS NOTE DATE: 09/07/2020 SUBJECTIVE: Mr. Acosta is seen this morning on his bedside. He reports diarrhea and poor appetite. He denies any dyspnea or chest pain. He is laying in the bed mostly and does not have any activity. Patient has metastatic pancreatic cancer, currently not receiving any chemotherapy. He has declined hospice services; however, has a DO NOT RESUSCITATE (DNR) in place. PHYSICAL EXAMINATION: Temperature 97.8 degrees Fahrenheit, heart rate 54 per minute, respiratory rate 16 per minute, blood pressure 108/60 mmHg, oxygen saturation 96% on room air. Patient is emaciated and chronically ill-looking, but not in any acute distress. HEAD: Atraumatic. NECK: Supple and without jugular venous distention (JVD) or thyroid enlargement. HEART SOUNDS: Regular. LUNGS: Diminished breath sounds on the left side. He has a PleurX catheter in place. ABDOMEN: Soft. Bowel sounds are normal. EXTREMITIES: Without any cyanosis or clubbing. There is 1+ edema on lower extremities. LABORATORY STUDIES: Patient did not have any new labs done since yesterday, when BUN was only 14 and creatinine 3.6. Sodium was 139 and potassium 3.8. PROBLEMS: 1. End-stage renal disease. Patient has been receiving dialysis three times a week. He was last dialyzed on Tuesday and we will plan to dialyze him again tomorrow. Electrolytes are stable. 2. Hypotension. This is a chronic and ongoing issue. Patient has been on midodrine 15 mg three times a day which will be continued. 3. Protein calorie malnutrition. Related to chronic diarrhea and poor oral intake in the setting of metastatic malignancy. His prognosis remains poor. 4. Anemia. His anemia has been stable and CBC will be checked again tomorrow morning. DISPOSITION: Patient is likely to be discharged next week. [facility] has been coordinating with his family for his outpatient needs.
--- NOTE | 2020-09-07 19:07 | ECGEPIP ---
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
[2020-09-08] MEDS: SODIUM CHLORIDE 0.9% INJ 10 ML SYR IV PRN (05:58)
[2020-09-08 06:00] VITALS: BP 92/54
[2020-09-08] MEDS: CHOLESTYRAMINE 4 GM PWD PKT PO SCH ×2 (06:05→20:32)
[2020-09-08] MEDS: MIDODRINE 5 MG TAB PO SCH ×3 (06:06→16:00)
[2020-09-08] MEDS: APIXABAN 2.5 MG TAB (ELIQUIS) PO SCH ×2 (06:07→20:52)
[2020-09-08] MEDS: PANTOPRAZOLE 40MG TAB (PROTONIX) PO SCH (06:07)
[2020-09-08] MEDS: ASPIRIN 81MG ENTERIC TABLET PO SCH (06:08)
[2020-09-08 06:25] LABS: HEMATOCRIT 32.7 % (42.0-52.0); HEMOGLOBIN 10.3 g/dl (13.5-17.5); MEAN CORPUSCULAR HEMOGLOBIN 28.9 pg (27.0-33.0); MEAN CORPUSCULAR HGB CONC 31.5 g/dl (32.0-36.5); MEAN CORPUSCULAR VOLUME 91.9 fl (80.0-96.0); PLATELET COUNT, AUTOMATED 209 10^3/uL (150-450); RED BLOOD COUNT 3.56 10^6/uL (4.30-6.10); WHITE BLOOD COUNT 5.6 10^3/uL (4.0-10.0)
[2020-09-08 06:50] LABS: ALBUMIN 1.3 GM/DL (3.2-5.2); CALCIUM LEVEL 7.3 MG/DL (8.8-10.2); CREATININE FOR GFR 5.25 MG/DL (0.70-1.30); GLOMERULAR FILTRATION RATE 11.4 (>42); PHOSPHORUS LEVEL 2.7 MG/DL (2.5-4.9); POTASSIUM SERUM 3.2 MEQ/L (3.5-5.1)
[2020-09-08] MEDS ORDERED: POTASSIUM CHLORIDE 10 MEQ SR TABLET PO ONE (08:45)
[2020-09-08] MEDS: FIBER-CON 625 MG TAB PO SCH ×2 (09:00→20:52)
--- NOTE | 2020-09-08 12:31 | IPN ---
[facility]: 09[facility]08/2020 SUBJECTIVE: Mr. Acosta is seen this morning on his bedside. He is feeling the same, very weak, not eating much. Blood pressure remains low or borderline. He is mostly in bed and not getting out of bed at all. His family has been consulted about the poor prognosis and potential need for hospice care and stopping dialysis; however, patient and his family want to continue with care. There is a plan for him to be discharged to home tomorrow. PHYSICAL EXAMINATION: Temperature 97 degrees Fahrenheit, heart rate 60 per minute, respiratory rate 16 per minute, blood pressure 92/54 mmHg, oxygen saturation 98% on room air. Chronically ill and emaciated. No acute distress noted. HEAD: Atraumatic. NECK: Supple and without jugular venous distention (JVD) or thyroid enlargement. Permacath is present on left upper chest in front of the shoulder. HEART SOUNDS: Regular. LUNGS: Diminished breath sounds at the left base. ABDOMEN: Soft and nontender. Bowel sounds normal. EXTREMITIES: Without any cyanosis or clubbing. NEUROLOGIC: He is at his baseline mentation without a focal deficit. LABORATORY STUDIES: Today's labs show WBC 5.6, hemoglobin 10.3, hematocrit 32.7, platelets 209. Sodium 138, potassium 3.2, CO2 20, BUN 24, creatinine 5.25, glucose 72, calcium 7.3. Albumin is only 1.3. PROBLEMS: 1. End-stage renal disease. Patient is due for dialysis later today and we will plan to dialyze him for three hours. 2. Hypotension. Blood pressure has been chronically low and he remains on midodrine 15 mg three times a day, which will be continued. 3. Hypokalemia. This is nutritional as patient does not eat much. We will replace his potassium with 20 mEq of potassium chloride. Patient is being encouraged to increase his oral intake. 4. Protein calorie malnutrition. This is a chronic issue with albumin level only 1.3. This is related to his metastatic prostate cancer and very poor oral intake in addition to diarrhea. His long-term prognosis remains poor. 5. Pancreatic cancer with metastatic disease. Patient has long history of pancreatic cancer for a number of years, currently not receiving any chemotherapy. His prognosis is poor due to multiple comorbid conditions.
[2020-09-08] MEDS: SODIUM CHLORIDE 0.9% INJ 10 ML SYR IV SCH (16:44)
[2020-09-09 06:00] VITALS: BP 104/61
[2020-09-09] MEDS: CHOLESTYRAMINE 4 GM PWD PKT PO SCH (09:00)
[2020-09-09] MEDS: FIBER-CON 625 MG TAB PO SCH (09:00)
[2020-09-09] MEDS: PANTOPRAZOLE 40MG TAB (PROTONIX) PO SCH (09:00)
[2020-09-09] MEDS ORDERED: MIDO5TA PO (09:27)
[2020-09-09] MEDS ORDERED: FIBE62TA PO (09:32)
[2020-09-09] MEDS ORDERED: CHOL4PW PO (09:32)
[2020-09-09] MEDS: ASPIRIN 81MG ENTERIC TABLET PO SCH (09:35)
[2020-09-09] MEDS: APIXABAN 2.5 MG TAB (ELIQUIS) PO SCH (09:35)
[2020-09-09] MEDS: MIDODRINE 5 MG TAB PO SCH ×2 (09:36→12:52)
[2020-09-09] MEDS: SODIUM CHLORIDE 0.9% INJ 10 ML SYR IV SCH (09:37)
--- NOTE | 2020-09-09 12:52 | IPN ---
PROGRESS NOTE DATE: 09/09/2020 SUBJECTIVE: Mr. Acosta is seen this morning on his bedside. He is feeling about the same. He is very weak and bedridden. He is not eating much, but denies any dyspnea or chest pain. His blood pressure has been chronically low and requires 15 mg of Midodrine three times a day to prevent hypotension during dialysis. Patient has known history of metastatic pancreatic cancer and is not a suitable candidate for chemotherapy at present. He has declined Hospice service. PHYSICAL EXAMINATION: VITALS: Temperature 98.4 degrees Fahrenheit, heart rate 55 per minute, respiratory rate 16 per minute, blood pressure 104/60 mmHg and oxygen saturation 95% on room air. GENERAL: He is chronically ill looking and pale, but not in any acute distress. HEENT: Head is atraumatic. Neck is supple and without JVD or thyroid enlargement. There is a dialysis catheter in left shoulder area. LUNGS: Diminished breath sounds on the left base. HEART: Sounds are regular. ABDOMEN: Soft and nontender. Bowel sounds are normal. EXTREMITIES: Without any cyanosis or clubbing. NEUROLOGIC: He is at his baseline mentation, without a focal deficit. LABORATORY STUDIES: Labs from yesterday were reviewed when his WBC count was 5.6, hemoglobin 10.3 and hematocrit 32.7. Sodium 138, potassium 3.2, BUN 24 and creatinine 5.25. Albumin 1.3. There are no labs done today. PROBLEMS: 1. End-stage renal disease: Patient has been dialysis dependent and was dialyzed yesterday. His next dialysis will be scheduled as an outpatient. It remains to be seen if he can make it to dialysis and back home due to his severe weakness. Patient has declined to stop dialysis and go on Hospice at this time. 2. Protein calorie malnutrition: This is a chronic issue and serum albumin was only 1.3 yesterday. He is not eating much and his prognosis remains poor. 3. Anemia: His anemia has been stable and does not need any urgent intervention. This will be managed with dialysis. 4. Hypokalemia: Potassium level was 3.2 yesterday and he was given potassium supplement. His labs will be repeated in the outpatient dialysis clinic. 5. Pancreatic cancer with mets: Patient has a long history of pancreatic cancer with metastases but is not a suitable candidate for chemotherapy at this point due to generalized weakness and multiple comorbid conditions. His prognosis remains poor. DISPOSITION: Patient is likely to be discharged to home today and it remains to be seen how long he lasts at home.
--- NOTE | 2020-09-09 13:11 | DS.PDOC ---
Discharge Summary General Date of Admission Aug 13, 2020 at 12:13 Date of Discharge 09/09/20 Discharge Summary PROCEDURES PERFORMED DURING STAY: [None]. DISCHARGE DIAGNOSES: #critical illness myopathy - in the setting of prolong hospitalization requiring PT/OT #severe protein calorie malnutrition # Left lower lobe atelectasis and pneumonia #Acute on Chronic hypotension #Small bowel ileus/ stool incontinence #Pancreatic adenocarcinoma with mets to the bilateral lung and chronic left hydropneumothorax #Chronic left hydropneumothorax. #ESRD - 2/2 chemotherapy #UTI #Paroxysmal Atrial fibrillation/Eliquis #Chronic anemia - likely 2/2 anemia of chronic disease #BPH #GERD COMPLICATIONS/CHIEF COMPLAINT: Esrd,Ileus Unspecified. HISTORY OF PRESENT ILLNESS: Patient is 75 years old male with past history of metastatic pancreatic cancer on supportive care, he had Whipple procedure, end-stage renal diseases on dialysis, recurrent small bowel obstruction, hypotension presented to the hospital with generalized weakness. Patient stated that after discharge on 08/11/20 from acute rehabilitation he became weak and had constipation for past 4 days. He became progressively weak yesterday and today and he missed dialysis which was planned today. Also patient complains of nausea and and few episodes of vomiting started since yesterday. In ER patient was found to have hemoglobin 12.3, no leukocytosis, creatinine 5.8. CT abd/pelvis There has been no significant change compared to the prior exam with findings as described above. A small bowel ileus is suspected status quo. HOSPITAL COURSE: #s/p Left lower lobe atelectasis and pneumonia - Patient denies any shortness of breath or cough - Saturating well on room air - s/p Zosyn x7 days #Acute on Chronic hypotension - Patient reports symptoms of nausea and lightheadedness after dialysis - c/w Midodrine at maximum dose; advised to continue with the use of midodrine to ensure dialysis can continue #Small bowel ileus/ stool incontinence - History of recurrent small bowel obstruction for years which started after whi pples procedure. - Last episode of SBO with contained perforation was in June 2020. 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 - Pleural effusion appeared in Jan 2020; Negative cytology in Apr 2020. - He was initially DX in 2000 & had Whipple and chemoradiation; in 2014 there was recurrence in the lungs. 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 After that went on chemo holiday. Ca-19-9 continued to rise but he did not want to restart chemo. - In April 2020 developed left pleural effusion had thoracocentesis. Again declined resuming chemo in Apr; per recent note 05/30/20 the patient last completed active treatment in apr 2017 - Left pleural fluid cytology / pathology from this admission is negative. - Repeated CA-19-9 levels that have been downtrending - Discussed case with oncology, Dr. Ghotra. Patient's malignancy is likely indolent; however given his functional status may not be a candidate for anything further #Chronic left hydropneumothorax. 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 - c/w PleurX cath draining every other day. #ESRD - 2/2 chemotherapy - Patient has had difficulty with hemodialysis given his ongoing hypotension - Nephrology on consultation #UTI - Urine culture 08/15: Yeastlike organisms - s/p Fluconazole x 7 days #Paroxysmal Atrial fibrillation - Patient is currently not on any rate and rhythm control medications - c/w Eliquis #Chronic anemia - likely 2/2 anemia of chronic disease - Hemoglobin has remained stable - No evidence of bleeding #Debility / Deconditioning/ failure to thrive - Patient has the inability to walk - Was in ARU for 10 days from 08/01-08/12; however could not get out of the car when he reached home so was brought back to the hospital and readmitted on 08/13/20 - c/w PT / OT; recommending 22/11 care #BPH - Currently makes very little urine #GERD - c/w Protonix DISCHARGE MEDICATIONS: Please see below. ALLERGIES: Please see below. PHYSICAL EXAMINATION ON DISCHARGE: VITAL SIGNS: Please see below. General: NAD HEENT: NC, AT CVS: +S1S2 Lungs: There is fair air entry bilaterally without any significant wheezing, rhonchi or crackles; L PleurX catheter Abdomen: Soft, nondistended and nontender Extremities: B/L LE edema LABORATORY DATA: Please see below. ACTIVITY: [As tolerated]. DISPOSITION: . DISCHARGE INSTRUCTIONS: 1. PCP in 3-5 days DISCHARGE CONDITION: [Stable]. TIME SPENT ON DISCHARGE: 35 minutes. Vital Signs/I&Os Vital Signs Date Time Temp Pulse Resp B/P (MAP) Pulse Ox O2 Delivery O2 Flow Rate FiO2 09/09/20 06:00 98.4 55 16 104/61 (75) 95 Room Air I&O- Last 24 Hours up to 6 AM 09/09/20 06:00 Intake Total 300 ml Output Total 850 ml Balance -550 ml Discharge Medications Scheduled Apixaban (Eliquis) 2.5 Mg Tablet, 2.5 MG PO BID, (Reported) Aspirin (Aspirin EC) 81 Mg Tablet.dr, 81 MG PO DAILY, (Reported) Calcium Polycarbophil (Fiber-Lax) 625 Mg Tablet, 2 EA PO BID Cholestyramine (Cholestyramine Packet) 4 Gm Powd.pack, 2 GM PO BID Midodrine HCl (Midodrine HCl) 5 Mg Tablet, 15 MG PO TID@0800,1200,1600 Pantoprazole Sodium (Pantoprazole Sodium) 40 Mg Tablet.dr, 40 MG PO DAILY, (Reported) Allergies Coded Allergies: No Known Allergies (Unverified , 07/27/18) ILDEFONSO TARANGO MD September 09, 2020 13:11
== END 2020-09-09 15:00 | disposition home health service (06) | DRG 388 ==
LOC: M ED 12:12 → M ED INP 12:13 → ENRESERV 17:57 → M MSPAV 21:35 → M PCU 08-16 22:06 → M MSPAV 08-23 16:26
PROVIDERS: ADMIT Internal Medicine; ATTEND Internal Medicine
PROC: 5A1D70Z Performance of Urinary Filtration, Intermittent, Less than 6 Hours Per Day (ICD-10-PCS; principal; 2020-09-01)
DX: K56.7 Ileus, unspecified (principal); N18.6 End stage renal disease; G93.41 Metabolic encephalopathy; J18.9 Pneumonia, unspecified organism; E43 Unspecified severe protein-calorie malnutrition; C25.9 Malignant neoplasm of pancreas, unspecified; C78.00 Secondary malignant neoplasm of unspecified lung; I48.20 Chronic atrial fibrillation, unspecified; J91.0 Malignant pleural effusion; N39.0 Urinary tract infection, site not specified; J98.11 Atelectasis; G72.81 Critical illness myopathy; R53.81 Other malaise; I95.3 Hypotension of hemodialysis; Z99.2 Dependence on renal dialysis; D63.1 Anemia in chronic kidney disease; I27.20 Pulmonary hypertension, unspecified; R62.7 Adult failure to thrive; R19.7 Diarrhea, unspecified; E88.09 Other disorders of plasma-protein metabolism, not elsewhere classified; Z92.21 Personal history of antineoplastic chemotherapy; I48.0 Paroxysmal atrial fibrillation; Z79.01 Long term (current) use of anticoagulants; K21.9 Gastro-esophageal reflux disease without esophagitis; N40.0 Benign prostatic hyperplasia without lower urinary tract symptoms; Z79.82 Long term (current) use of aspirin; Z79.899 Other long term (current) drug therapy; F17.200 Nicotine dependence, unspecified, uncomplicated; Z66 Do not resuscitate; E87.6 Hypokalemia